=== PATIENT | male | born 1935 | race American Indian/Alaskan Native ===

== ENCOUNTER 2016-10-11 09:42 | Observation (INO) | payer MEDICARE ==
[2016-10-11] MEDS ORDERED: MILK OF MAGNESIA PO PRN (10:16)
[2016-10-11] MEDS ORDERED: TYLENOL PO PRN ×2 (10:16→13:39)
[2016-10-11] MEDS ORDERED: ZOFRAN IV PRN (10:16)
[2016-10-11] MEDS ORDERED: NACL 0.45% 1000 ML 1,000 ML IV ONE (10:33)
[2016-10-11] MEDS ORDERED: NACL 0.9% 1 ML, VANCOMYCIN VIAL 1,000 MG IR ONE (10:35)
[2016-10-11] MEDS ORDERED: ANCEF/STERILE WATER 2 GM/20 ML 2 GM/20 ML SYRINGE IV NR (11:00)
[2016-10-11] MEDS ORDERED: DULCOLAX PR PRN (11:00)
[2016-10-11] MEDS ORDERED: NACL 0.45% 1000 ML 1,000 ML IV SCH (11:00)
[2016-10-11 11:06] LABS: INR 1.08 (0.87-1.13)
[2016-10-11 11:07] LABS: Partial Thromboplastin Time 31.3 Sec. (24.2-36.6)
[2016-10-11 11:09] LABS: Basophils % (Auto) 0.7 % (0.0-1.8); Eosinophils % (Auto) 6.8 % (0.0-4.3); Hematocrit 31.6 % (35.5-45.6); Hemoglobin 9.9 gm/dl (11.8-15.2); Mean Corpuscular HGB Conc 31 % (32-34); Mean Corpuscular Hemoglobin 26 pg (28-32); Mean Corpuscular Volume 83 fl (84-94); Platelet Count 144 K/mm3 (140-440); Red Cell Distribution Width 15.3 % (13.2-15.2); White Blood Count 3.1 K/mm3 (4.5-11.0)
[2016-10-11 11:12] LABS: BUN/Creatinine Ratio 12.27; Calcium 9.7 mg/dL (8.4-10.2); Chloride 108.5 mmol/L (98-107); Potassium 3.8 mmol/L (3.6-5.0)
--- NOTE | 2016-10-11 11:43 | Admit Criteria Form ---
Admission Criteria Documentation: TELEMETRY CARE Telemetry Admission Guidelines (Place 'X' for any and all applicable criteria): Admission to telemetry [A] may be indicated for ANY ONE of the following(1)(2)(3 )(4)(5): [ ]I. Cardiac disease, including ANY ONE of the following (9)(10)(11)(12)(13 ): [ ]a) Postacute ND [ ]b) Low-risk patients with ST-segment elevation ND who have undergone successful percutaneous coronary intervention [ ]c) Unstable angina [ ]d) Suspected ND (until it is ruled out) [ ]e) Post cardiac surgery (first 48 to 72 hours unless complications occur) [ ]f) Acute arrhythmias (including significant tachycardia or bradycardia) [B] [ ]g) Firing of an implantable cardioverter defibrillator [C] [ ]h) Suspected pacemaker or implantable cardioverter defibrillator malfunction (10) [ ]i) New administration or adjustment of an antiarrhythmic drug [D ] [ ]j) Child admitted for acute congestive heart failure [ ]j) Long QT syndrome [ ]k) Advanced heart block (eg, second-degree Mobitz type II, third- degree heart block) [ ]l) Acute myocarditis or pericarditis [X]m) Short-term (ambulatory or inpatient) monitoring after a cardiac procedure as indicated by ANY ONE of the following [E]: [ ]i) Electrophysiologic studies [ ]ii) Percutaneous coronary intervention with stent placement [X]iii) Pacemaker placement with cardiac conduction defect [ ]iv) Implantable cardiac defibrillator placement [ ]II. Drug overdose or poisoning with substance that causes arrhythmias or QT prolongation (eg, phenothiazines, sympathomimetic agents, cyclic antidepressants, digitalis, antiarrhythmic drugs)(15) [ ]III. Short-term (ambulatory or inpatient) monitoring after therapeutic or diagnostic procedure requiring conscious sedation or anesthesia (eg, endoscopy, elective cardioversion) [ ]IV. Acute cerebrovascular even[F](18) [ ]V. Massive blood transfusion (eg, at least 10 units of packed red blood cells in 24 hours) [ ]. Variceal bleeding after endoscopy, sclerotherapy, or IV vasopressin [ ]VII. Uncorrected electrolyte abnormalities associated with an increased risk of dangerous arrhythmia [G]; examples include [ ]a) Hyperkalemia with attributable ECG changes [ ]b) Potassium greater than 6.5 mmol/L (mEq/L) in a patient without history of chronic renal disease [ ]c) Prolonged QT attributed to hypokalemia, hypomagnesemia, or hypocalcemia [ ]VIII.Unexplained syncope or other neurologic event suspected of being due to arrhythmia due to a finding that increases risk; examples include(19)(20)(21): [ ]a) High-risk ECG findings (eg, bifascicular block, bradycardia, abnormal QT interval, ventricular pre- excitation) [ ]b) History of previous syncope due to arrhythmia [ ]c) Abnormal ventricular function (eg, reduced ejection fraction ) [ ]d) Exertional or supine syncope [ ]e) Concerning syncope characteristics (eg, sudden loss of consciousness without prodrome) [ ]f) Family history of sudden [ ]g) Use of arrhythmogenic medication [ ]h) Suspected cardiac ischemia [ ]i) Known channelopathy (eg, long QT syndrome, Brugada syndrome, or catecholaminergic paroxysmal ventricular tachycardia) [ ]j) Known structural heart disease (eg, hypertrophic cardiomyopathy , severe valvular disease) [ ]k) Palpitations preceding syncope The original [employer] content created by [employer] has been revised. The portions of the content which have been revised are identified through the use of italic text or in bold, and [facility] has neither reviewed nor approved the modified material. All other unmodified content is copyright [employer]. Please see references footnoted in the original [employer] edition 2016 Admission Criteria Met: Yes
[2016-10-11] MEDS ORDERED: NACL 0.9% 500 ML IR ONE (11:48)
[2016-10-11] MEDS ORDERED: ANCEF/STERILE WATER 2 GM/20 ML 2 GM/20 ML SYRINGE IV ONE (11:49)
[2016-10-11] MEDS ORDERED: MARCAINE 0.5% 60 ML INFILTRATI ONE (11:49)
[2016-10-11] MEDS ORDERED: XYLOCAINE 1% 20 mL ONE ×2 (11:49→12:05)
[2016-10-11] MEDS: VERSED ONE ×2 (12:10→13:00)
[2016-10-11] MEDS: SUBLIMAZE ONE ×3 (12:10→13:06)
[2016-10-11] MEDS ORDERED: BENADRYL ONE (12:24)
[2016-10-11] MEDS ORDERED: VANCOMYCIN VIAL 1,000 MG in NACL 0.9% 1,000 ML IRRIGATION ONE (12:30)
--- NOTE | 2016-10-11 14:34 | Short Stay Summary ---
Short Stay Documentation Date of service: 10/11/16 - History H&P: obtained from office - Allergies and Medications Current Medications: Allergies No Known Allergies Allergy (Unverified 07/06/16 16:12) Home Medications Medication Instructions Recorded Confirmed Last Taken Type Amlodipine Besylate [Amlodipine 10 mg PO DAILY 10/11/16 10/11/16 10/10/16 History Besylate] 10mg Aspirin EC [Aspirin Enteric Coated 81 mg PO DAILY 10/11/16 10/11/16 10/09/16 History TAB] 81mg Clopidogrel Bisulfate [Clopidogrel] 75 mg PO DAILY 10/11/16 10/11/16 10/10/16 History 75mg Famotidine [Famotidine] 20 mg PO BID 10/11/16 10/11/16 10/10/16 History 20mg Lovastatin [Lovastatin] 40 mg PO HS 10/11/16 10/11/16 10/10/16 History 40mg Metoprolol Tartrate [Metoprolol 50 mg PO BID 10/11/16 10/11/16 10/10/16 History Tartrate] 50mg Vit D3/Folic Acid/B2/B6/B12 1 each PO DAILY 10/11/16 10/11/16 10/10/16 History [Folgard Tablet] 1 ntab levETIRAcetam [Levetiracetam] 750 mg PO BID 10/11/16 10/11/16 10/10/16 History 750mg Active Medications Acetaminophen (Tylenol) 650 mg PO Q4H PRN PRN Reason: Pain MILD(1-3)/Fever >100.5/ZIMMERMAN Amlodipine Besylate (Norvasc) 10 mg PO DAILY DAVID Aspirin (Halfprin Ec) 81 mg PO DAILY DAVID Bisacodyl (Dulcolax) 10 mg NE QDAY PRN PRN Reason: Constipation unrelieved by MOM Clopidogrel Bisulfate (Plavix) 75 mg PO DAILY DAVID Famotidine (Pepcid) 20 mg PO BID DAVID Sodium Chloride (Nacl 0.45% 1000 Ml) 1,000 mls @ 50 mls/hr IV DIRECT DAVID Cefazolin Sodium (Ancef/Sterile Water 2 Gm/20 Ml) 2 gm in 20 mls @ 0 mls/hr IV PREOP NR PRN Reason: Protocol Stop: 10/11/16 23:29 Cefazolin Sodium (Ancef/Ns 1 Gm/50 Ml) 1 gm in 50 mls @ 0 mls/hr IV Q8H DAVID Stop: 10/12/16 04:01 Sodium Chloride (Nacl 0.9% 1000 Ml) 1,000 mls @ 80 mls/hr IV DIRECT DAVID Levetiracetam (Keppra) 750 mg PO BID DAVID Magnesium Hydroxide (Milk Of Magnesia) 30 ml PO Q4H PRN PRN Reason: Constipation Metoprolol Tartrate (Lopressor) 50 mg PO BID DAVID Ondansetron HCl (Zofran) 4 mg IV Q8H PRN PRN Reason: N/V unrelieved by Reglan Simvastatin (Zocor) 20 mg PO QHS DAVID - Brief post op/procedure progress note Date of procedure: 10/11/16 Pre-op diagnosis: symptomatic bradycardia Procedure: permanent pacemaker implantation - Hospital course Hospital course: The patient is an 81 year old male who is followed by Dr. Brand in the office with a history of CAD s/p CABG, hypertension, hyperlipidemia who wore a Holter monitor following a syncopal episode. Monitor revealed intermittent episodes of AV block with heart rates down into the 30s. He presented on 10/11/16 and underwent permanent pacemaker implantation by Dr. Dejesus. He was observed on telemetry overnight and pacemaker interrogation this morning revealed normal function. He will be discharged home today in stable condition. Follow up appointment for an incision check with Dr. Dejesus in the [place] office on at 11:00am. - Disposition Condition at discharge: Stable Disposition: DISCHARGED TO HOME OR SELFCARE - Discharge Diagnoses (1) Pacemaker Status: Acute (2) Symptomatic bradycardia Status: Resolved (3) CAD (coronary artery disease) Status: Chronic Qualifiers: Coronary Disease-Associated Artery/Lesion type: C [place] vs. transplanted heart: N Associated angina: A (4) Hx of CABG Status: Chronic (5) HTN (hypertension) Status: Chronic Qualifiers: Hypertension type: H (6) Hyperlipidemia Status: Chronic Qualifiers: Hyperlipidemia type: H Short Stay Discharge Plan Activity: advance as tolerated Weight Bearing Status: Weight Bear as Tolerated Diet: low fat, low cholesterol Wound: keep clean and dry Follow up with: ROSALINE FAULKNER MD [Primary Care Provider] - 7 Days TRACE DEJESUS MD [Staff Physician] - 10/19/16 11:00 am
--- NOTE | 2016-10-11 15:10 | XRay Report ---
PORTABLE CHEST INDICATION: Pacemaker postop. COMPARISON: 07/26/2016 FINDINGS: Portable, frontal chest radiograph demonstrate stable cardiomediastinal silhouette/possible cardiomegaly, aortic knob calcifications, right paratracheal haziness/prominent soft tissues and post CABG changes. Left sided pacemaker with dual-chamber leads are new. Clear lungs without pleural effusions, CHF or pneumothorax. EKG leads. Stable bones. CONCLUSION: Interval uncomplicated left-sided pacemaker placement with few other stable findings, as above. Thank you for the opportunity to participate in this patient's care.
[2016-10-11] MEDS: NACL 0.9% 1000 ML 1,000 ML IV SCH (15:17)
[2016-10-11] MEDS ORDERED: ZOCOR PO SCH (22:00)
[2016-10-11] MEDS: ANCEF/NS 1 GM/50 ML 1 GM/50 ML BAG IV SCH (22:45)
[2016-10-11] MEDS: KEPPRA PO SCH (22:46)
[2016-10-11] MEDS: LOPRESSOR PO SCH (22:46)
[2016-10-11] MEDS: PEPCID PO SCH (22:47)
[2016-10-12] MEDS: ANCEF/NS 1 GM/50 ML 1 GM/50 ML BAG IV SCH (04:30)
[2016-10-12] MEDS: NACL 0.9% 1000 ML 1,000 ML IV SCH (05:43)
[2016-10-12 07:35] VITALS: BP 180/81
[2016-10-12] MEDS ORDERED: HALFPRIN EC PO SCH (10:00)
[2016-10-12] MEDS ORDERED: PLAVIX PO SCH (10:00)
[2016-10-12] MEDS ORDERED: NORVASC PO SCH (10:00)
[2016-10-12] MEDS: PEPCID PO SCH (10:55)
[2016-10-12] MEDS: KEPPRA PO SCH (10:55)
[2016-10-12] MEDS: LOPRESSOR PO SCH (10:57)
[2016-10-13] MEDS ORDERED: PEPCID PO SCH (10:00)
== END 2016-10-12 12:30 | disposition home or self-care (01) ==
LOC: OPU 09:42 → 4A 10:16
PROVIDERS: ADMIT Internal Medicine Cardiovascular Disease; ATTEND Internal Medicine Cardiovascular Disease
DX: I25.10 Atherosclerotic heart disease of native coronary artery without angina pectoris (principal); N19 Unspecified kidney failure; E78.5 Hyperlipidemia, unspecified; E78.00 Pure hypercholesterolemia, unspecified; R00.1 Bradycardia, unspecified; I10 Essential (primary) hypertension; Z95.1 Presence of aortocoronary bypass graft; Z95.0 Presence of cardiac pacemaker
CPT/HCPCS: 33208; 36415; 71010; 80048; 85025; 85610; 85730; 93005; 93010; 96365; 96366; C1769; C1779; C1785; C1892; G0378; J0690; J1200; J2250; J3010; J3370; J7030

== ENCOUNTER 2017-09-05 10:16 | Inpatient (IN) | payer MEDICARE ==
[2017-09-05] MEDS ORDERED: NACL 0.9% 1000 ML 1,000 ML IV ONE ×2 (10:46→12:00)
--- NOTE | 2017-09-05 11:02 | Emergency Department Report ---
ED Syncope HPI - General Chief Complaint: Syncope Stated Complaint: SYNCOPE Time Seen by Provider: 09/05/17 10:52 Source: family, EMS - History of Present Illness Initial Comments: Patient is a 82 years old male, history of hypertension, pacemaker, seizure. Presented via EMS after his called and told that she found him unresponsive on the floor after he went to the bathroom, unknown amount of time. Patient is back to his baseline now. Patient denied any chest pain, shortness of breath, cough. Patient denied any headache nausea or vomiting or fever. Timing/Prior Episodes: single episode today Precipitating Factors: Positive: none Loss of Consciousness: prolonged (minutes) Current Symptoms: back to normal - Related Data Allergies/Adverse Reactions: Allergies No Known Allergies Allergy (Unverified 07/06/16 16:12) Home Medications: Ambulatory Orders Amlodipine Besylate 10 mg PO DAILY 10/11/16 Aspirin EC [Aspirin Enteric Coated TAB] 81 mg PO DAILY 10/11/16 Clopidogrel Bisulfate [Clopidogrel] 75 mg PO DAILY 10/11/16 Famotidine 20 mg PO BID 10/11/16 Lovastatin 40 mg PO HS 10/11/16 Metoprolol Tartrate 50 mg PO BID 10/11/16 Vit D3/Folic Acid/B2/B6/B12 [Folgard Tablet] 1 each PO DAILY 10/11/16 levETIRAcetam [Levetiracetam] 750 mg PO BID 10/11/16 Calcitriol [Rocaltrol] 0.25 mcg PO DAILY 09/05/17 Donepezil [Aricept] 10 mg PO QDAY 09/05/17 Spironolactone [Aldactone] 25 mg PO BID 09/05/17 ED Review of Systems ROS: Stated complaint: SYNCOPE Other details as noted in HPI Comment: All other systems reviewed and negative Constitutional: denies: chills, fever ENT: denies: ear pain, throat pain Respiratory: denies: cough, orthopnea, shortness of breath, SOB with exertion Cardiovascular: denies: chest pain, palpitations, dyspnea on exertion Gastrointestinal: denies: abdominal pain, nausea, vomiting, diarrhea, constipation, hematemesis, melena, hematochezia Genitourinary: denies: urgency Musculoskeletal: denies: back pain, joint swelling Skin: denies: rash, lesions, change in color Neurological: denies: headache, weakness ED Past Medical Hx - Past Medical History Hx Hypertension: Yes Hx Heart Attack/AMI: No Hx Congestive Heart Failure: No Hx Seizures: Yes (as a child under 1 yr old) Hx HIV: No - Surgical History Hx Open Heart Surgery: Yes (CABG) Hx Pacemaker: Yes (new implant 10/11/16) - Social History Smoking Status: Never Smoker Substance Use Type: None - Medications Home Medications: Home Medications Medication Instructions Recorded Confirmed Last Taken Type Amlodipine Besylate 10 mg PO DAILY 10/11/16 09/05/17 09/04/17 History Aspirin EC [Aspirin Enteric Coated 81 mg PO DAILY 10/11/16 09/05/17 09/04/17 History TAB] Clopidogrel Bisulfate [Clopidogrel] 75 mg PO DAILY 10/11/16 09/05/17 09/04/17 History Famotidine 20 mg PO BID 10/11/16 09/05/17 09/04/17 History Lovastatin 40 mg PO HS 10/11/16 09/05/17 09/04/17 History Metoprolol Tartrate 50 mg PO BID 10/11/16 09/05/17 09/04/17 History Vit D3/Folic Acid/B2/B6/B12 1 each PO DAILY 10/11/16 09/05/17 09/04/17 History [Folgard Tablet] levETIRAcetam [Levetiracetam] 750 mg PO BID 10/11/16 09/05/17 09/04/17 History Calcitriol [Rocaltrol] 0.25 mcg PO DAILY 09/05/17 09/05/17 09/04/17 History Donepezil [Aricept] 10 mg PO QDAY 09/05/17 09/05/17 09/04/17 History Spironolactone [Aldactone] 25 mg PO BID 09/05/17 09/05/17 09/04/17 History ED Physical Exam - General Limitations: No Limitations General appearance: alert, in no apparent distress - Head Head exam: Present: atraumatic, normocephalic, normal inspection - Eye Eye exam: Present: normal appearance, PERRL, EOMI - ENT ENT exam: Present: normal exam, normal orophraynx, mucous membranes moist, normal external ear exam. Absent: TM's normal bilaterally - Neck Neck exam: Present: normal inspection, full ROM. Absent: tenderness, meningismus, lymphadenopathy, thyromegaly - Respiratory Respiratory exam: Present: normal lung sounds bilaterally. Absent: respiratory distress, wheezes, rales, rhonchi, stridor, accessory muscle use, decreased breath sounds, prolonged expiratory - Cardiovascular Cardiovascular Exam: Present: bradycardia - GI/Abdominal GI/Abdominal exam: Present: soft, normal bowel sounds. Absent: distended, tenderness, guarding, rebound, rigid, organomegaly, mass, bruit, pulsatile mass , hernia - Extremities Exam Extremities exam: Present: normal inspection, full ROM, normal capillary refill. Absent: pedal edema, calf tenderness - Back Exam Back exam: Present: normal inspection, full ROM. Absent: tenderness, CVA tenderness (R), CVA tenderness (L), muscle spasm, paraspinal tenderness, vertebral tenderness - Neurological Exam Neurological exam: Present: alert, oriented X3, CN II-XII intact, normal gait. Absent: abnormal gait, motor sensory deficit - Skin Skin exam: Present: warm, intact, normal color ED Course Vital Signs 09/05/17 09/05/17 09/05/17 10:42 11:46 12:46 Temperature 98.1 F Pulse Rate 62 60 Respiratory 18 16 16 Rate Blood Pressure 148/65 Blood Pressure 162/73 [Right] O2 Sat by Pulse 97 97 99 Oximetry 09/05/17 14:00 Temperature Pulse Rate 62 Respiratory 15 Rate Blood Pressure Blood Pressure 146/63 [Right] O2 Sat by Pulse 95 Oximetry ED Medical Decision Making - Lab Data Result diagrams: 09/05/17 10:51 09/05/17 10:51 - EKG Data -: EKG Interpreted by Nj - EKG Data Interpretation: no acute changes - Radiology Data Radiology results: report reviewed Referring Physician: PHUONG BAREU Patient Name: KUN YING Date of : 1935 Sex: Male Report Date: 2017-09-05 Report Status: Finalized Findings [facility] [address] [place] [address] Cat Scan Report Signed Patient: KUN YING MR#: [id number] : 1935 Acct:[id number] Age/Sex: 82 / M ADM Date: 09/05/17 Loc: ED Attending Dr: Ordering Physician: PHUONG ABREU Date of Service: 09/05/17 Procedure(s): CT head/brain wo con Accession Number(s): [id number] cc: PHUONG ABREU CT HEAD WITHOUT CONTRAST: HISTORY: Syncope. TECHNIQUE: Sequential CT images without contrast. FINDINGS: Compared to 07/26/16. The small bilateral subdural collections have resolved since the previous exam. No new extra-axial fluid collection. Mild diffuse cortical volume loss and mild nonspecific chronic white matter changes are stable and appear appropriate for this persons age. There is no evidence for hemorrhage or large area of acute ischemia. 12 mm masslike lesion in the left side of the sella is unchanged. This probably represents a small meningioma although an aneurysm or pituitary macroadenoma could be considered. Ventricular size remains within normal limits. The posterior fossa is unremarkable. The visualized sinuses and mastoid air cells are well-aerated. IMPRESSION: Evidence of atrophy and microangiopathic ischemic disease. No acute intracranial process noted. No change in the 12 mm sellar mass, see above. Bilateral subdural collections have resolved since the previous exam. Transcribed By: TTR Dictated By: KRAIG MUNSON JR, MD Electronically Authenticated By: KRAIG MUNSON JR, MD Signed Date/Time: 09/05/17 1151 DD/ 1148 TD/TT: 09/05/17 1151 - Medical Decision Making Discussed with Dr. SKELTON, I presented the patient to him, he agreed to admit the patient to his service. Critical care attestation.: If time is entered above; I have spent that time in minutes in the direct care of this critically ill patient, excluding procedure time. ED Disposition Clinical Impression: Syncope and collapse, Acute on chronic renal failure Disposition: OP ADMIT IP TO THIS HOSP Is pt being admited?: Yes Condition: Stable
[2017-09-05 11:15] LABS: Basophils % (Auto) 0.4 % (0.0-1.8); Eosinophils # (Auto) 0.5 K/mm3 (0.0-0.4); Eosinophils % (Auto) 11.3 % (0.0-4.3); Hematocrit 34.8 % (35.5-45.6); Hemoglobin 10.8 gm/dl (11.8-15.2); Lymphocytes # (Auto) 1.9 K/mm3 (1.2-5.4); Lymphocytes % (Auto) 40.1 % (13.4-35.0); Mean Corpuscular HGB Conc 31 % (32-34); Mean Corpuscular Hemoglobin 27 pg (28-32); Mean Corpuscular Volume 86 fl (84-94); Monocytes # (Auto) 0.5 K/mm3 (0.0-0.8); Platelet Count 128 K/mm3 (140-440); Red Blood Count 4.07 M/mm3 (3.65-5.03); Red Cell Distribution Width 15.9 % (13.2-15.2)
--- NOTE | 2017-09-05 11:22 | XRay Report ---
AP CHEST: HISTORY: Syncope No change is appreciated since 10/11/16. Previous CABG changes and pacemaker device are unchanged. Heart size is stable at the upper limits of normal. The aorta is ectatic with calcifications but is well defined. The lungs are clear. The bony structures are grossly intact. IMPRESSION: No acute cardiopulmonary process.
[2017-09-05 11:27] LABS: INR 1.06 (0.87-1.13)
[2017-09-05 11:28] LABS: Partial Thromboplastin Time 28.6 Sec. (24.2-36.6)
[2017-09-05 11:32] LABS: Creatine Kinase MB 4.4 ng/mL (0.0-4.0)
[2017-09-05 11:33] LABS: Albumin 3.7 g/dL (3.9-5); Calcium 9.8 mg/dL (8.4-10.2); Magnesium 2.2 mg/dL (1.7-2.3)
[2017-09-05 11:45] LABS: Chol/HDL Ratio 2.13 %
--- NOTE | 2017-09-05 11:56 | Cat Scan Report ---
CT HEAD WITHOUT CONTRAST: HISTORY: Syncope. TECHNIQUE: Sequential CT images without contrast. FINDINGS: Compared to 07/26/16. The small bilateral subdural collections have resolved since the previous exam. No new extra-axial fluid collection. Mild diffuse cortical volume loss and mild nonspecific chronic white matter changes are stable and appear appropriate for this persons age. There is no evidence for hemorrhage or large area of acute ischemia. 12 mm masslike lesion in the left side of the sella is unchanged. This probably represents a small meningioma although an aneurysm or pituitary macroadenoma could be considered. Ventricular size remains within normal limits. The posterior fossa is unremarkable. The visualized sinuses and mastoid air cells are well-aerated. IMPRESSION: Evidence of atrophy and microangiopathic ischemic disease. No acute intracranial process noted. No change in the 12 mm sellar mass, see above. Bilateral subdural collections have resolved since the previous exam.
--- NOTE | 2017-09-05 15:21 | History and Physical Report ---
History of Present Illness Date of examination: 09/05/17 Date of admission: 09/05/17 12:42 Chief complaint: Cc Passed out History of present illness: - History of Present Illness Initial Comments: Patient is a 82 years old male, history of hypertension, pacemaker, seizure. Presented via EMS after his called and told that she found him unresponsive on the floor after he went to the bathroom, unknown amount of time. Patient is back to his baseline now. Patient denied any chest pain, shortness of breath, cough. Patient denied any headache nausea or vomiting or fever.No exacerbating or relieving factor Past Medical History Hx Hypertension: Yes Hx Seizures: Yes (as a child under 1 yr old) CAD HLD Dementia-mild Surgical History Hx Open Heart Surgery: Yes (CABG) Hx Pacemaker: Yes (new implant 10/11/16) Social History Smoking Status: Never Smoker Substance Use Type: None -Medications Home Medications: Home Medications Medication Instructions Recorded Confirmed Last Taken Type Amlodipine Besylate 10 mg PO DAILY 10/11/16 09/05/17 09/04/17 History Aspirin EC [Aspirin Enteric Coated 81 mg PO DAILY 10/11/16 09/05/17 09/04/17 History TAB] Clopidogrel Bisulfate [Clopidogrel] 75 mg PO DAILY 10/11/16 09/05/17 09/04/17 History Famotidine 20 mg PO BID 10/11/16 09/05/17 09/04/17 History Lovastatin 40 mg PO HS 10/11/16 09/05/17 09/04/17 History Metoprolol Tartrate 50 mg PO BID 10/11/16 09/05/17 09/04/17 History Vit D3/Folic Acid/B2/B6/B12 1 each PO DAILY 10/11/16 09/05/17 09/04/17 History [Folgard Tablet] levETIRAcetam [Levetiracetam] 750 mg PO BID 10/11/16 09/05/17 09/04/17 History Calcitriol [Rocaltrol] 0.25 mcg PO DAILY 09/05/17 09/05/17 09/04/17 History Donepezil [Aricept] 10 mg PO QDAY 09/05/17 09/05/17 09/04/17 History Spironolactone [Aldactone] 25 mg PO BID 09/05/17 09/05/17 09/04/17 History Review of Systems ROS: Stated complaint: SYNCOPE Other details as noted in HPI Comment: All other systems reviewed and negative Constitutional: denies: chills, fever ENT: denies: ear pain, throat pain Respiratory: denies: cough, orthopnea, shortness of breath, SOB with exertion Cardiovascular: denies: chest pain, palpitations, dyspnea on exertion Gastrointestinal: denies: abdominal pain, nausea, vomiting, diarrhea, constipation, hematemesis, melena, hematochezia Genitourinary: denies: urgency Musculoskeletal: denies: back pain, joint swelling Skin: denies: rash, lesions, change in color Neurological: denies: headache, weakness Medications and Allergies Allergies Allergy/AdvReac Type Severity Reaction Status Date / Time No Known Allergies Allergy Unverified 07/06/16 16:12 Home Medications Medication Instructions Recorded Confirmed Last Taken Type Amlodipine Besylate 10 mg PO DAILY 10/11/16 09/05/17 09/04/17 History Aspirin EC [Aspirin Enteric Coated 81 mg PO DAILY 10/11/16 09/05/17 09/04/17 History TAB] Clopidogrel Bisulfate [Clopidogrel] 75 mg PO DAILY 10/11/16 09/05/17 09/04/17 History Famotidine 20 mg PO BID 10/11/16 09/05/17 09/04/17 History Lovastatin 40 mg PO HS 10/11/16 09/05/17 09/04/17 History Metoprolol Tartrate 50 mg PO BID 10/11/16 09/05/17 09/04/17 History Vit D3/Folic Acid/B2/B6/B12 1 each PO DAILY 10/11/16 09/05/17 09/04/17 History [Folgard Tablet] levETIRAcetam [Levetiracetam] 750 mg PO BID 10/11/16 09/05/17 09/04/17 History Calcitriol [Rocaltrol] 0.25 mcg PO DAILY 09/05/17 09/05/17 09/04/17 History Donepezil [Aricept] 10 mg PO QDAY 09/05/17 09/05/17 09/04/17 History Spironolactone [Aldactone] 25 mg PO BID 09/05/17 09/05/17 09/04/17 History Exam - Constitutional Vitals: Temp Pulse Resp BP Pulse Ox 98.1 F 62 15 146/63 95 09/05/17 10:42 09/05/17 14:00 09/05/17 14:00 09/05/17 14:00 09/05/17 14:00 General appearance: Present: no acute distress, well-nourished - EENT Eyes: Present: PERRL ENT: hearing intact, clear oral mucosa - Neck Neck: Present: supple, normal ROM - Respiratory Respiratory effort: normal Respiratory: bilateral: CTA - Cardiovascular Heart rate: 80 Rhythm: regular Heart Sounds: Present: S1 & S2. Absent: rub, click - Extremities Extremities: no ischemia, pulses intact, pulses symmetrical, No edema Peripheral Pulses: within normal limits - Abdominal General gastrointestinal: Present: soft, non-tender, non-distended, normal bowel sounds Male genitourinary: Present: normal - Rectal Rectal Exam: deferred - Integumentary Integumentary: Present: clear, warm, dry - Musculoskeletal Musculoskeletal: gait normal, strength equal bilaterally - Psychiatric Psychiatric: appropriate mood/affect, intact judgment & insight - Neurologic Neurologic: CNII-XII intact, moves all extremities - Allied Health Allied health notes reviewed: nursing Results - Labs CBC & Chem 7: 09/06/17 06:16 09/06/17 06:16 Labs: Laboratory Last Values WBC 4.7 K/mm3 (4.5-11.0) 09/05/17 10:51 RBC 4.07 M/mm3 (3.65-5.03) 09/05/17 10:51 Hgb 10.8 gm/dl (11.8-15.2) L 09/05/17 10:51 Hct 34.8 % (35.5-45.6) L 09/05/17 10:51 MCV 86 fl (84-94) 09/05/17 10:51 MCH 27 pg (28-32) L 09/05/17 10:51 MCHC 31 % (32-34) L 09/05/17 10:51 RDW 15.9 % (13.2-15.2) H 09/05/17 10:51 Plt Count 128 K/mm3 (140-440) L 09/05/17 10:51 Lymph % (Auto) 40.1 % (13.4-35.0) H 09/05/17 10:51 [place] % (Auto) 11.0 % (0.0-7.3) H 09/05/17 10:51 Eos % (Auto) 11.3 % (0.0-4.3) H 09/05/17 10:51 Baso % (Auto) 0.4 % (0.0-1.8) 09/05/17 10:51 Lymph # 1.9 K/mm3 (1.2-5.4) 09/05/17 10:51 [place] # 0.5 K/mm3 (0.0-0.8) 09/05/17 10:51 Eos # 0.5 K/mm3 (0.0-0.4) H 09/05/17 10:51 Baso # 0.0 K/mm3 (0.0-0.1) 09/05/17 10:51 Seg Neutrophils % 37.2 % (40.0-70.0) L 09/05/17 10:51 Seg Neutrophils # 1.7 K/mm3 (1.8-7.7) L 09/05/17 10:51 PT 14.3 Sec. (12.2-14.9) 09/05/17 10:51 INR 1.06 (0.87-1.13) 09/05/17 10:51 APTT 28.6 Sec. (24.2-36.6) 09/05/17 10:51 Sodium 143 mmol/L (137-145) 09/05/17 10:51 Potassium 4.7 mmol/L (3.6-5.0) 09/05/17 10:51 Chloride 110.9 mmol/L (98-107) H 09/05/17 10:51 Carbon Dioxide 14 mmol/L (22-30) L 09/05/17 10:51 Anion Gap 23 mmol/L 09/05/17 10:51 BUN 62 mg/dL (9-20) H 09/05/17 10:51 Creatinine 3.2 mg/dL (0.8-1.5) H 09/05/17 10:51 Estimated GFR 23 ml/min 09/05/17 10:51 BUN/Creatinine Ratio 19 % 09/05/17 10:51 Glucose 113 mg/dL (75-100) H 09/05/17 10:51 Calcium 9.8 mg/dL (8.4-10.2) 09/05/17 10:51 Magnesium 2.20 mg/dL (1.7-2.3) 09/05/17 10:51 Total Bilirubin 0.30 mg/dL (0.1-1.2) 09/05/17 10:51 AST 22 units/L (5-40) 09/05/17 10:51 ALT 19 units/L (7-56) 09/05/17 10:51 Alkaline Phosphatase 51 units/L (35-129) 09/05/17 10:51 Total Creatine Kinase 322 units/L (55-170) H 09/05/17 10:51 CK-MB (CK-2) 4.4 ng/mL (0.0-4.0) H 09/05/17 10:51 CK-MB (CK-2) Rel Index 1.3 (0-4) 09/05/17 10:51 Troponin T 0.056 ng/mL (0.00-0.029) H 09/05/17 10:51 Total Protein 7.2 g/dL (6.3-8.2) 09/05/17 10:51 Albumin 3.7 g/dL (3.9-5) L 09/05/17 10:51 Albumin/Globulin Ratio 1.1 % 09/05/17 10:51 Triglycerides 72 mg/dL (2-149) 09/05/17 10:51 Cholesterol 141 mg/dL (50-199) 09/05/17 10:51 LDL Cholesterol Direct 61 mg/dL (50-130) 09/05/17 10:51 HDL Cholesterol 66 mg/dL (40-59) H 09/05/17 10:51 Cholesterol/HDL Ratio 2.13 % 09/05/17 10:51 Short CBC 09/05/17 09/06/17 Range/Units 10:51 06:16 WBC 4.7 3.5 L (4.5-11.0) K/mm3 Hgb 10.8 L 11.2 L (11.8-15.2) gm/dl Hct 34.8 L 34.4 L (35.5-45.6) % Plt Count 128 L 114 L (140-440) K/mm3 BMP 09/05/17 09/06/17 10:51 06:16 Sodium 143 143 Potassium 4.7 5.5 H Chloride 110.9 H 112.8 H Carbon Dioxide 14 L 17 L BUN 62 H 48 H Creatinine 3.2 H 2.8 H Glucose 113 H 93 Calcium 9.8 9.6 Cardiac Enzymes 09/05/17 09/05/17 09/05/17 Range/Units 10:51 15:59 20:42 Total Creatine Kinase 322 H 333 H 390 H (55-170) units/L CK-MB (CK-2) 4.4 H 5.4 H 5.4 H (0.0-4.0) ng/mL Troponin T 0.056 H 0.055 H 0.056 H (0.00-0.029) ng/mL 09/06/17 Range/Units 06:16 Total Creatine Kinase 478 H (55-170) units/L CK-MB (CK-2) 5.6 H (0.0-4.0) ng/mL Troponin T 0.062 H (0.00-0.029) ng/mL Liver Function 09/05/17 09/06/17 Range/Units 10:51 06:16 Total Bilirubin 0.30 0.30 (0.1-1.2) mg/dL AST 22 19 (5-40) units/L ALT 19 11 (7-56) units/L Alkaline Phosphatase 51 51 (35-129) units/L Albumin 3.7 L 3.7 L (3.9-5) g/dL Urine 09/05/17 Range/Units Unknown Urine Color Straw (Yellow) Urine pH 5.0 (5.0-7.0) Ur Specific [place] 1.009 (1.003-1.030) Urine Protein 30 mg/dl (Negative) mg/dL Urine Glucose (UA) Neg (Negative) mg/dL - Imaging and Cardiology EKG: report reviewed Chest x-ray: report reviewed Assessment and Plan Advance Directives: Yes (FC) VTE prophylaxis?: Chemical Plan of care discussed with patient/family: Yes - Patient Problems (1) Syncope and collapse Current Visit: Yes Status: Acute Plan to address problem: Syncope w/u in the form of Lexiscan ECHO and CDS (2) Hyperkalemia Current Visit: Yes Status: Acute Plan to address problem: IV calcium gluconate given.Spironolactone stopped Check K level (3) CAD (coronary artery disease) Current Visit: No Status: Chronic Qualifiers: Coronary Disease-Associated Artery/Lesion type: bypass graft [place] vs. transplanted heart: [place] heart Associated angina: without angina Qualified Code(s): I25.810 - Atherosclerosis of coronary artery bypass graft(s) without angina pectoris Plan to address problem: On Plavix (4) Hx of CABG Current Visit: No Status: Chronic Plan to address problem: On Plavix Check Lexiscan (5) Hyperlipidemia Current Visit: No Status: Chronic Qualifiers: Hyperlipidemia type: mixed hyperlipidemia Qualified Code(s): E78.2 - Mixed hyperlipidemia Plan to address problem: Cont Statins (6) HTN (hypertension) Current Visit: Yes Status: Chronic Qualifiers: Hypertension type: essential hypertension Qualified Code(s): I10 - Essential (primary) hypertension Plan to address problem: Cont Metoprolol and Amlodipine (7) Seizure disorder Current Visit: Yes Status: Chronic Plan to address problem: Cont Keppra (8) DVT prophylaxis Current Visit: Yes Status: Acute Plan to address problem: cont lovenox
[2017-09-05 15:22] LABS: Bilirubin,Urine NEG (Negative); Blood,Urine SM (Negative); Color,Urine Straw (Yellow); Mucus,Urine FEW /HPF; Nitrite,Urine NEG (Negative); Urobilinogen,Urine < 2.0 mg/dL (<2.0); WBC,Urine < 1.0 /HPF (0.0-6.0)
[2017-09-05] MEDS ORDERED: TYLENOL PO PRN (15:24)
[2017-09-05] MEDS ORDERED: PERCOCET 5/325 PO PRN (15:24)
[2017-09-05] MEDS ORDERED: ZOFRAN IV PRN (15:24)
[2017-09-05] MEDS ORDERED: MILK OF MAGNESIA PO PRN (15:24)
[2017-09-05] MEDS ORDERED: AMBIEN PO PRN (15:24)
[2017-09-05] MEDS ORDERED: REGLAN IV PRN (15:24)
[2017-09-05] MEDS ORDERED: MORPHINE IV PRN (15:24)
[2017-09-05] MEDS ORDERED: DULCOLAX PR PRN (15:24)
[2017-09-05] MEDS ORDERED: D5NS 1,000 ML IV SCH (16:00)
[2017-09-05 16:49] LABS: Creatine Kinase MB 5.4 ng/mL (0.0-4.0)
[2017-09-05] MEDS: KEPPRA PO SCH ×2 (18:00→21:21)
[2017-09-05] MEDS: ALDACTONE PO SCH ×2 (18:01→21:23)
[2017-09-05] MEDS: PLAVIX PO SCH (18:01)
[2017-09-05] MEDS: HALFPRIN EC PO SCH (18:02)
[2017-09-05] MEDS: LOPRESSOR PO SCH ×2 (18:03→21:28)
[2017-09-05] MEDS: ARICEPT PO SCH (18:03)
[2017-09-05] MEDS: ROCALTROL PO SCH (18:04)
[2017-09-05] MEDS: NORVASC PO SCH (18:04)
[2017-09-05] MEDS: PEPCID PO SCH ×3 (18:04→22:18)
[2017-09-05] MEDS: PRAVACHOL PO SCH (21:28)
[2017-09-05] MEDS ORDERED: NON-FORMULARY (Lovastatin [Lovastatin] 40 MG) PO SCH (22:00)
[2017-09-05 22:25] LABS: Creatine Kinase MB 5.4 ng/mL (0.0-4.0)
[2017-09-06 06:46] LABS: Basophils % (Auto) 0.8 % (0.0-1.8); Eosinophils # (Auto) 0.3 K/mm3 (0.0-0.4); Eosinophils % (Auto) 9.1 % (0.0-4.3); Hematocrit 34.4 % (35.5-45.6); Hemoglobin 11.2 gm/dl (11.8-15.2); Lymphocytes # (Auto) 0.8 K/mm3 (1.2-5.4); Lymphocytes % (Auto) 22.9 % (13.4-35.0); Mean Corpuscular HGB Conc 33 % (32-34); Mean Corpuscular Hemoglobin 28 pg (28-32); Mean Corpuscular Volume 85 fl (84-94); Monocytes # (Auto) 0.4 K/mm3 (0.0-0.8); Monocytes % (Auto) 12.5 % (0.0-7.3); Platelet Count 114 K/mm3 (140-440); Red Blood Count 4.05 M/mm3 (3.65-5.03); Red Cell Distribution Width 15.9 % (13.2-15.2)
[2017-09-06 07:02] LABS: Albumin 3.7 g/dL (3.9-5); Calcium 9.6 mg/dL (8.4-10.2)
[2017-09-06 07:07] LABS: Creatine Kinase MB 5.6 ng/mL (0.0-4.0)
[2017-09-06] MEDS ORDERED: LEXISCAN IV ONE ×2 (09:11)
[2017-09-06] MEDS ORDERED: CALCIUM GLUCONATE 2,000 MG in NACL 0.9% 100 ML IV ONE (10:00)
[2017-09-06] MEDS: KEPPRA PO SCH ×2 (10:47→22:10)
[2017-09-06] MEDS: NORVASC PO SCH (10:48)
[2017-09-06] MEDS: ARICEPT PO SCH (10:48)
[2017-09-06] MEDS: HALFPRIN EC PO SCH (10:48)
[2017-09-06] MEDS: PLAVIX PO SCH (10:48)
[2017-09-06] MEDS: ROCALTROL PO SCH (10:48)
[2017-09-06] MEDS: LOPRESSOR PO SCH ×2 (10:50→22:10)
[2017-09-06] MEDS: PEPCID PO SCH ×3 (10:50→22:10)
[2017-09-06] MEDS ORDERED: Fluarix Quad 2017-2018(36 MOS+ IM ONE (12:00)
[2017-09-06] MEDS ORDERED: PNEUMOVAX 23 IM ONE (12:00)
[2017-09-06] MEDS ORDERED: KIONEX PO ONE (13:00)
--- NOTE | 2017-09-06 20:58 | Progress Note ---
<ARIANA MIRELES - Last Filed: 09/06/17 21:30> Assessment and Plan Assessment and plan: Patient is a 82 years old male, history of hypertension, pacemaker, seizure. Presented via EMS after his called and told that she found him unresponsive on the floor after he went to the bathroom, unknown amount of time. Syncope and collapse VL carotid no stenosis CT of the head shows no acute process Echocardiogram pending Stress test pending Frequent neuro checks. Cardiology consult Supportive care Hyperkalemia Keyxlate given Closely monitor elcetrolytes Elevated Troponin CAD Patient has elevated troponin on pervious labs. Continue on plavix aspirin and statins Stress test pending Cardiology consult Hx of CABG Continue on plavix aspirin and statins HTN (hypertension) Continue on home antihypertensive medication IV hydralazine for SBP>160 Closely monitor BB Seizure disorder Continue Keppra Hyperlipidemia Started on antilipid agents Discussed about the importance of physical exercise, low fat diet, reducing intake of high fluid fat foods to improve Cardiovascular disease DVT prophylaxis Lovenox History Interval history: Patient denies chest pain or shortness of breath.Labs and nursing notes reviewed. Hospitalist Physical - Constitutional Vitals: Temp Pulse Resp BP Pulse Ox 97.9 F 70 20 151/83 97 09/06/17 10:56 09/06/17 10:56 09/06/17 10:56 09/06/17 10:56 09/06/17 20:32 General appearance: Present: no acute distress, well-nourished - EENT Eyes: Present: PERRL ENT: hearing intact - Neck Neck: Present: supple - Respiratory Respiratory effort: normal Respiratory: bilateral: CTA - Cardiovascular Rhythm: regular Heart Sounds: Present: S1 & S2 - Abdominal General gastrointestinal: soft, non-tender - Integumentary Integumentary: Present: clear, warm, dry - Psychiatric Psychiatric: appropriate mood/affect - Neurologic Neurologic: moves all extremities - Allied Health Allied health notes reviewed: nursing Results - Labs CBC & Chem 7: 09/06/17 06:16 09/06/17 06:16 Labs: Laboratory Last Values WBC 3.5 K/mm3 (4.5-11.0) L 09/06/17 06:16 RBC 4.05 M/mm3 (3.65-5.03) 09/06/17 06:16 Hgb 11.2 gm/dl (11.8-15.2) L 09/06/17 06:16 Hct 34.4 % (35.5-45.6) L 09/06/17 06:16 MCV 85 fl (84-94) 09/06/17 06:16 MCH 28 pg (28-32) 09/06/17 06:16 MCHC 33 % (32-34) 09/06/17 06:16 RDW 15.9 % (13.2-15.2) H 09/06/17 06:16 Plt Count 114 K/mm3 (140-440) L 09/06/17 06:16 Lymph % (Auto) 22.9 % (13.4-35.0) 09/06/17 06:16 [place] % (Auto) 12.5 % (0.0-7.3) H 09/06/17 06:16 Eos % (Auto) 9.1 % (0.0-4.3) H 09/06/17 06:16 Baso % (Auto) 0.8 % (0.0-1.8) 09/06/17 06:16 Lymph # 0.8 K/mm3 (1.2-5.4) L 09/06/17 06:16 [place] # 0.4 K/mm3 (0.0-0.8) 09/06/17 06:16 Eos # 0.3 K/mm3 (0.0-0.4) 09/06/17 06:16 Baso # 0.0 K/mm3 (0.0-0.1) 09/06/17 06:16 Seg Neutrophils % 54.7 % (40.0-70.0) 09/06/17 06:16 Seg Neutrophils # 1.9 K/mm3 (1.8-7.7) 09/06/17 06:16 PT 14.3 Sec. (12.2-14.9) 09/05/17 10:51 INR 1.06 (0.87-1.13) 09/05/17 10:51 APTT 28.6 Sec. (24.2-36.6) 09/05/17 10:51 Sodium 143 mmol/L (137-145) 09/06/17 06:16 Potassium 5.5 mmol/L (3.6-5.0) H 09/06/17 06:16 Chloride 112.8 mmol/L (98-107) H 09/06/17 06:16 Carbon Dioxide 17 mmol/L (22-30) L 09/06/17 06:16 Anion Gap 19 mmol/L 09/06/17 06:16 BUN 48 mg/dL (9-20) H 09/06/17 06:16 Creatinine 2.8 mg/dL (0.8-1.5) H 09/06/17 06:16 Estimated GFR 26 ml/min 09/06/17 06:16 BUN/Creatinine Ratio 17 % 09/06/17 06:16 Glucose 93 mg/dL (75-100) 09/06/17 06:16 Hemoglobin A1c 5.4 % (4-6) 09/05/17 15:59 Calcium 9.6 mg/dL (8.4-10.2) 09/06/17 06:16 Magnesium 2.20 mg/dL (1.7-2.3) 09/05/17 10:51 Total Bilirubin 0.30 mg/dL (0.1-1.2) 09/06/17 06:16 AST 19 units/L (5-40) 09/06/17 06:16 ALT 11 units/L (7-56) 09/06/17 06:16 Alkaline Phosphatase 51 units/L (35-129) 09/06/17 06:16 Total Creatine Kinase 478 units/L (55-170) H 09/06/17 06:16 CK-MB (CK-2) 5.6 ng/mL (0.0-4.0) H 09/06/17 06:16 CK-MB (CK-2) Rel Index 1.1 (0-4) 09/06/17 06:16 Troponin T 0.062 ng/mL (0.00-0.029) H 09/06/17 06:16 Total Protein 7.1 g/dL (6.3-8.2) 09/06/17 06:16 Albumin 3.7 g/dL (3.9-5) L 09/06/17 06:16 Albumin/Globulin Ratio 1.1 % 09/06/17 06:16 Triglycerides 72 mg/dL (2-149) 09/05/17 10:51 Cholesterol 141 mg/dL (50-199) 09/05/17 10:51 LDL Cholesterol Direct 61 mg/dL (50-130) 09/05/17 10:51 HDL Cholesterol 66 mg/dL (40-59) H 09/05/17 10:51 Cholesterol/HDL Ratio 2.13 % 09/05/17 10:51 Urine Color Straw (Yellow) 09/05/17 Unknown Urine Turbidity Clear (Clear) 09/05/17 Unknown Urine pH 5.0 (5.0-7.0) 09/05/17 Unknown Ur Specific [place] 1.009 (1.003-1.030) 09/05/17 Unknown Urine Protein 30 mg/dl mg/dL (Negative) 09/05/17 Unknown Urine Glucose (UA) Neg mg/dL (Negative) 09/05/17 Unknown Urine Ketones Neg mg/dL (Negative) 09/05/17 Unknown Urine Blood Sm (Negative) 09/05/17 Unknown Urine Nitrite Neg (Negative) 09/05/17 Unknown Urine Bilirubin Neg (Negative) 09/05/17 Unknown Urine Urobilinogen < 2.0 mg/dL (<2.0) 09/05/17 Unknown Ur Leukocyte Esterase Neg (Negative) 09/05/17 Unknown Urine WBC (Auto) < 1.0 /HPF (0.0-6.0) 09/05/17 Unknown Urine RBC (Auto) 1.0 /HPF (0.0-6.0) 09/05/17 Unknown U Epithel Cells (Auto) < 1.0 /HPF (0-13.0) 09/05/17 Unknown Urine Mucus Few /HPF 09/05/17 Unknown <MILTON CHAPMAN R - Last Filed: 09/23/17 10:52> Assessment and Plan Assessment and plan: I saw and evaluated the patient. I agree with the findings and the plan of care as documented in the Nurse Practitioner's~note, with the following corrections and additions. Hospitalist Physical - Constitutional Vitals: Temp Pulse Resp BP Pulse Ox 98.4 F 57 L 18 144/81 100 09/07/17 10:59 09/07/17 10:59 09/07/17 10:59 09/07/17 10:59 09/07/17 10:59 Results - Labs CBC & Chem 7: 09/09/17 05:51 09/09/17 05:51 Labs: Laboratory Last Values WBC 3.5 K/mm3 (4.5-11.0) L 09/06/17 06:16 RBC 4.05 M/mm3 (3.65-5.03) 09/06/17 06:16 Hgb 11.2 gm/dl (11.8-15.2) L 09/06/17 06:16 Hct 34.4 % (35.5-45.6) L 09/06/17 06:16 MCV 85 fl (84-94) 09/06/17 06:16 MCH 28 pg (28-32) 09/06/17 06:16 MCHC 33 % (32-34) 09/06/17 06:16 RDW 15.9 % (13.2-15.2) H 09/06/17 06:16 Plt Count 114 K/mm3 (140-440) L 09/06/17 06:16 Lymph % (Auto) 22.9 % (13.4-35.0) 09/06/17 06:16 [place] % (Auto) 12.5 % (0.0-7.3) H 09/06/17 06:16 Eos % (Auto) 9.1 % (0.0-4.3) H 09/06/17 06:16 Baso % (Auto) 0.8 % (0.0-1.8) 09/06/17 06:16 Lymph # 0.8 K/mm3 (1.2-5.4) L 09/06/17 06:16 [place] # 0.4 K/mm3 (0.0-0.8) 09/06/17 06:16 Eos # 0.3 K/mm3 (0.0-0.4) 09/06/17 06:16 Baso # 0.0 K/mm3 (0.0-0.1) 09/06/17 06:16 Seg Neutrophils % 54.7 % (40.0-70.0) 09/06/17 06:16 Seg Neutrophils # 1.9 K/mm3 (1.8-7.7) 09/06/17 06:16 PT 14.3 Sec. (12.2-14.9) 09/05/17 10:51 INR 1.06 (0.87-1.13) 09/05/17 10:51 APTT 28.6 Sec. (24.2-36.6) 09/05/17 10:51 Sodium 143 mmol/L (137-145) 09/06/17 06:16 Potassium 5.5 mmol/L (3.6-5.0) H 09/06/17 06:16 Chloride 112.8 mmol/L (98-107) H 09/06/17 06:16 Carbon Dioxide 17 mmol/L (22-30) L 09/06/17 06:16 Anion Gap 19 mmol/L 09/06/17 06:16 BUN 48 mg/dL (9-20) H 09/06/17 06:16 Creatinine 2.8 mg/dL (0.8-1.5) H 09/06/17 06:16 Estimated GFR 26 ml/min 09/06/17 06:16 BUN/Creatinine Ratio 17 % 09/06/17 06:16 Glucose 93 mg/dL (75-100) 09/06/17 06:16 Hemoglobin A1c 5.4 % (4-6) 09/05/17 15:59 Calcium 9.6 mg/dL (8.4-10.2) 09/06/17 06:16 Magnesium 2.20 mg/dL (1.7-2.3) 09/05/17 10:51 Total Bilirubin 0.30 mg/dL (0.1-1.2) 09/06/17 06:16 AST 19 units/L (5-40) 09/06/17 06:16 ALT 11 units/L (7-56) 09/06/17 06:16 Alkaline Phosphatase 51 units/L (35-129) 09/06/17 06:16 Total Creatine Kinase 478 units/L (55-170) H 09/06/17 06:16 CK-MB (CK-2) 5.6 ng/mL (0.0-4.0) H 09/06/17 06:16 CK-MB (CK-2) Rel Index 1.1 (0-4) 09/06/17 06:16 Troponin T 0.062 ng/mL (0.00-0.029) H 09/06/17 06:16 Total Protein 7.1 g/dL (6.3-8.2) 09/06/17 06:16 Albumin 3.7 g/dL (3.9-5) L 09/06/17 06:16 Albumin/Globulin Ratio 1.1 % 09/06/17 06:16 Triglycerides 72 mg/dL (2-149) 09/05/17 10:51 Cholesterol 141 mg/dL (50-199) 09/05/17 10:51 LDL Cholesterol Direct 61 mg/dL (50-130) 09/05/17 10:51 HDL Cholesterol 66 mg/dL (40-59) H 09/05/17 10:51 Cholesterol/HDL Ratio 2.13 % 09/05/17 10:51 Urine Color Straw (Yellow) 09/05/17 Unknown Urine Turbidity Clear (Clear) 09/05/17 Unknown Urine pH 5.0 (5.0-7.0) 09/05/17 Unknown Ur Specific [place] 1.009 (1.003-1.030) 09/05/17 Unknown Urine Protein 30 mg/dl mg/dL (Negative) 09/05/17 Unknown Urine Glucose (UA) Neg mg/dL (Negative) 09/05/17 Unknown Urine Ketones Neg mg/dL (Negative) 09/05/17 Unknown Urine Blood Sm (Negative) 09/05/17 Unknown Urine Nitrite Neg (Negative) 09/05/17 Unknown Urine Bilirubin Neg (Negative) 09/05/17 Unknown Urine Urobilinogen < 2.0 mg/dL (<2.0) 09/05/17 Unknown Ur Leukocyte Esterase Neg (Negative) 09/05/17 Unknown Urine WBC (Auto) < 1.0 /HPF (0.0-6.0) 09/05/17 Unknown Urine RBC (Auto) 1.0 /HPF (0.0-6.0) 09/05/17 Unknown U Epithel Cells (Auto) < 1.0 /HPF (0-13.0) 09/05/17 Unknown Urine Mucus Few /HPF 09/05/17 Unknown
[2017-09-06] MEDS: PRAVACHOL PO SCH (22:10)
--- NOTE | 2017-09-07 03:21 | Treadmill Report ---
NUCLEAR PERFUSION SCAN REFERRING PHYSICIAN: Dr. Barajas. PROTOCOL: The patient was brought to the stress lab in a postabsorptive state, given 10 mCi of technetium 99m at rest. The patient underwent rest imaging. The patient underwent Lexiscan stress test per standard protocol. At peak stress, the patient was given 26 mCi of technetium 99m. Shortly thereafter, the patient underwent stress imaging. Raw imaging reveals mild GI artifact, no significant motion artifact. SPECT images examined carefully in horizontal long axis, vertical long axis, and short axis views. Interpretation is normal homogenous uptake of radioisotope in all reported segments. No evidence of a significant fixed or reversible perfusion defects suggestive of prior infarction or ischemia. Gated wall motion reveals normal systolic thickening, calculated ejection fraction of 58%. No TID. CONCLUSIONS: 1. Abnormal myocardial perfusion scan without evidence of active ischemia or prior infarction. 2. Normal left ventricular systolic performance without evidence of transient ischemic dilatation or stress-induced segmental wall motion abnormalities. JOB# [id number] HAYDEE/VALE
[2017-09-07] MEDS: PEPCID PO SCH ×2 (10:18→21:51)
[2017-09-07] MEDS: LOPRESSOR PO SCH ×2 (10:18→21:50)
[2017-09-07] MEDS: ROCALTROL PO SCH (10:18)
[2017-09-07] MEDS: ARICEPT PO SCH (10:18)
[2017-09-07] MEDS: PLAVIX PO SCH (10:18)
[2017-09-07] MEDS: NORVASC PO SCH (10:18)
[2017-09-07] MEDS: HALFPRIN EC PO SCH (10:18)
[2017-09-07] MEDS: KEPPRA PO SCH ×2 (10:19→21:50)
--- NOTE | 2017-09-07 13:00 | Consultation ---
History of Present Illness - Reason for Consult Consult date: 09/07/17 acute renal failure, chronic renal failure, hyperkalemia, metabolic acidosis Requesting physician: IDA SKELTON - History of Present Illness Patient is a 82 years old male, history of hypertension, pacemaker, seizure. Presented via EMS after his called and told that she found him unresponsive on the floor after he went to the bathroom, unknown amount of time. Patient is back to his baseline now. Patient denied any chest pain, shortness of breath, cough. 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 Surgical History Hx Open Heart Surgery: Yes (CABG) Hx Pacemaker: Yes (new implant 10/11/16) Social History Smoking Status: Never Smoker Substance Use Type: None Review of Systems ROS: Stated complaint: SYNCOPE Other details as noted in HPI Comment: All other systems reviewed and negative Constitutional: denies: chills, fever ENT: denies: ear pain, throat pain Respiratory: denies: cough, orthopnea, shortness of breath, SOB with exertion Cardiovascular: denies: chest pain, palpitations, dyspnea on exertion Gastrointestinal: denies: abdominal pain, nausea, vomiting, diarrhea, constipation, hematemesis, melena, hematochezia Genitourinary: denies: urgency Musculoskeletal: denies: back pain, joint swelling Skin: denies: rash, lesions, change in color Neurological: denies: headache, weakness Medications and Allergies Allergies Allergy/AdvReac Type Severity Reaction Status Date / Time No Known Allergies Allergy Unverified 07/06/16 16:12 Home Medications Medication Instructions Recorded Confirmed Last Taken Type Amlodipine Besylate 10 mg PO DAILY 10/11/16 09/05/17 09/04/17 History Aspirin EC [Aspirin Enteric Coated 81 mg PO DAILY 10/11/16 09/05/17 09/04/17 History TAB] Clopidogrel Bisulfate [Clopidogrel] 75 mg PO DAILY 10/11/16 09/05/17 09/04/17 History Famotidine 20 mg PO BID 10/11/16 09/05/17 09/04/17 History Lovastatin 40 mg PO HS 10/11/16 09/05/17 09/04/17 History Metoprolol Tartrate 50 mg PO BID 10/11/16 09/05/17 09/04/17 History Vit D3/Folic Acid/B2/B6/B12 1 each PO DAILY 10/11/16 09/05/17 09/04/17 History [Folgard Tablet] levETIRAcetam [Levetiracetam] 750 mg PO BID 10/11/16 09/05/17 09/04/17 History Calcitriol [Rocaltrol] 0.25 mcg PO DAILY 09/05/17 09/05/17 09/04/17 History Donepezil [Aricept] 10 mg PO QDAY 09/05/17 09/05/17 09/04/17 History Spironolactone [Aldactone] 25 mg PO BID 09/05/17 09/05/17 09/04/17 History Active Meds: Active Medications Acetaminophen (Tylenol) 650 mg PO Q4H PRN PRN Reason: Pain MILD(1-3)/Fever >100.5/ZIMMERMAN Amlodipine Besylate (Norvasc) 10 mg PO DAILY [facility] Last Admin: 09/07/17 10:18 Dose: 10 mg Aspirin (Halfprin Ec) 81 mg PO DAILY [facility] Last Admin: 09/07/17 10:18 Dose: 81 mg Bisacodyl (Dulcolax) 10 mg PA QDAY PRN PRN Reason: Constipation unrelieved by MOM Calcitriol (Rocaltrol) 0.25 mcg PO DAILY [facility] Last Admin: 09/07/17 10:18 Dose: 0.25 mcg Clopidogrel Bisulfate (Plavix) 75 mg PO DAILY [facility] Last Admin: 09/07/17 10:18 Dose: 75 mg Donepezil HCl (Aricept) 10 mg PO QDAY [facility] Last Admin: 09/07/17 10:18 Dose: 10 mg Famotidine (Pepcid) 20 mg PO BID [facility] Last Admin: 09/07/17 10:18 Dose: 20 mg Dextrose/Sodium Chloride (D5ns) 1,000 mls @ 75 mls/hr IV DIRECT DAVID Levetiracetam (Keppra) 750 mg PO BID [facility] Last Admin: 09/07/17 10:19 Dose: 750 mg Magnesium Hydroxide (Milk Of Magnesia) 30 ml PO Q4H PRN PRN Reason: Constipation Metoclopramide HCl (Reglan) 10 mg IV Q6H PRN PRN Reason: Nausea And Vomiting Metoprolol Tartrate (Lopressor) 50 mg PO BID [facility] Last Admin: 09/07/17 10:18 Dose: 50 mg Morphine Sulfate (Morphine) 2 mg IV Q4H PRN PRN Reason: Pain, Moderate (4-6) Ondansetron HCl (Zofran) 4 mg IV Q8H PRN PRN Reason: N/V unrelieved by Reglan Oxycodone/Acetaminophen (Percocet 5/325) 1 tab PO Q6H PRN PRN Reason: Pain, Moderate (4-6) Pravastatin Sodium (Pravachol) 40 mg PO QHS [facility] Last Admin: 09/06/17 22:10 Dose: 40 mg Zolpidem Tartrate (Ambien) 5 mg PO QHS PRN PRN Reason: Insomnia Exam - Vital Signs Vital signs: Vital Signs Pulse Ox 100 09/05/17 10:28 - Physical Exam Narrative exam: appearance: Present: no acute distress, well-nourished - EENT Eyes: Present: PERRL ENT: hearing intact, clear oral mucosa - Neck Neck: Present: supple, normal ROM - Respiratory Respiratory effort: normal Respiratory: bilateral: CTA - Cardiovascular Heart rate: 80 Rhythm: regular Heart Sounds: Present: S1 & S2. Absent: rub, click - Extremities Extremities: no ischemia, pulses intact, pulses symmetrical, No edema Peripheral Pulses: within normal limits - Abdominal General gastrointestinal: Present: soft, non-tender, non-distended, normal bowel sounds Male genitourinary: Present: normal - Rectal Rectal Exam: deferred - Integumentary Integumentary: Present: clear, warm, dry - Musculoskeletal Musculoskeletal: gait normal, strength equal bilaterally - Psychiatric Psychiatric: appropriate mood/affect, intact judgment & insight - Neurologic Neurologic: CNII-XII intact, moves all extremities - Allied Health Allied health notes reviewed: nursing Results - Lab Results 09/06/17 06:16 09/06/17 06:16 Most recent lab results Calcium 9.6 mg/dL (8.4-10.2) 09/06/17 06:16 Magnesium 2.20 mg/dL (1.7-2.3) 09/05/17 10:51 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
--- NOTE | 2017-09-07 14:55 | Ultrasound Report ---
FINAL REPORT PROCEDURE: US RENAL BILAT TECHNIQUE: Real-time sonography in multiple planes of the kidneys, ureters and urinary bladder was performed with image documentation. CPT 60457 HISTORY: Chronic renal disease. COMPARISON: No prior studies are available for comparison. FINDINGS: The echogenicity of the renal cortex bilaterally appears increased consistent with chronic renal parenchymal disease. Multiple renal cortical cysts are visualized bilaterally. On the left the largest measures 2.2 centimeters greatest diameter, on the right the largest measures 4.4 centimeters greatest diameter. No solid masses calculi or hydronephrosis are visualized. The right kidney measures 10.6 x 5.7 x 5.0 centimeter. The left kidney measures 9.2 x 3.7 x 3.7 centimeter. Urinary bladder is only partially filled and shows no gross abnormality per IMPRESSION: There is evidence of chronic renal parenchymal disease. Multiple renal cortical cysts are visualized bilaterally as described.. No solid masses renal calculi or hydronephrosis visualized.
[2017-09-07] MEDS ORDERED: SODIUM BICARBONATE 150 MEQ in D5W 1,000 ML IV SCH (15:00)
[2017-09-07] MEDS: PRAVACHOL PO SCH (21:51)
[2017-09-08 07:35] LABS: Basophils % (Auto) 0.5 % (0.0-1.8); Eosinophils # (Auto) 0.5 K/mm3 (0.0-0.4); Eosinophils % (Auto) 9.3 % (0.0-4.3); Hematocrit 34.1 % (35.5-45.6); Hemoglobin 11.1 gm/dl (11.8-15.2); Lymphocytes # (Auto) 1.5 K/mm3 (1.2-5.4); Lymphocytes % (Auto) 30.1 % (13.4-35.0); Mean Corpuscular HGB Conc 33 % (32-34); Mean Corpuscular Hemoglobin 28 pg (28-32); Mean Corpuscular Volume 85 fl (84-94); Monocytes # (Auto) 0.7 K/mm3 (0.0-0.8); Monocytes % (Auto) 13.3 % (0.0-7.3); Platelet Count 110 K/mm3 (140-440); Red Blood Count 4.02 M/mm3 (3.65-5.03); Red Cell Distribution Width 15.3 % (13.2-15.2)
[2017-09-08 07:42] LABS: Calcium 9.3 mg/dL (8.4-10.2)
--- NOTE | 2017-09-08 10:14 | Progress Note ---
Assessment and Plan Assessment and plan: Syncope Carotid Doppler revealed no stenosis CT of the head shows no acute process Echocardiogram revealed mild concentric left ventricular hypertrophy with systolic function at lower limits. EF 50-55%. Stress test is without evidence of active ischemia or prior infarction. Normal left ventricular systolic performance without evidence of transient ischemic dilatation or stress-induced segmental wall motion abnormalities. Frequent neuro checks. Supportive care Hyperkalemia Kayexalate given Closely monitor elcetrolytes SERENE on CKD Patient appears to have a baseline creatinine of 2.2. Follow-up renal ultrasound. Elevated Troponin Etiology is likely secondary to renal insufficiency. Patient has elevated troponin on pervious labs. Continue on plavix aspirin and statins Consider Cardiology consult Hx of CABG Continue on plavix aspirin and statins HTN (hypertension) Continue on home antihypertensive medication IV hydralazine for SBP>160 Closely monitor BB Seizure disorder Continue Keppra Hyperlipidemia Continue Pravachol Deconditioning Patient reports frequent unsteadiness with ambulation. Patient may need SNF. PT/OT evaluation. Consider MRI if patient truly ataxic. DVT prophylaxis Lovenox History Interval history: No new issues overnight. Hospitalist Physical - Constitutional Vitals: Temp Pulse Resp BP Pulse Ox 98.5 F 66 18 134/68 99 09/08/17 03:35 09/08/17 03:35 09/08/17 03:35 09/08/17 03:35 09/08/17 03:35 General appearance: Present: no acute distress, well-nourished - EENT Eyes: Present: PERRL, EOM intact ENT: hearing intact, clear oral mucosa, dentition normal - Neck Neck: Present: supple, normal ROM - Respiratory Respiratory effort: normal Respiratory: bilateral: CTA - Cardiovascular Rhythm: regular Heart Sounds: Present: S1 & S2. Absent: gallop, rub - Extremities Extremities: no ischemia, No edema, Full ROM - Abdominal General gastrointestinal: soft, non-tender, non-distended, normal bowel sounds - Integumentary Integumentary: Present: clear, warm, dry - Neurologic Neurologic: CNII-XII intact, moves all extremities Results - Labs CBC & Chem 7: 09/08/17 06:28 09/08/17 06:28 Labs: Laboratory Last Values WBC 5.0 K/mm3 (4.5-11.0) 09/08/17 06:28 RBC 4.02 M/mm3 (3.65-5.03) 09/08/17 06:28 Hgb 11.1 gm/dl (11.8-15.2) L 09/08/17 06:28 Hct 34.1 % (35.5-45.6) L 09/08/17 06:28 MCV 85 fl (84-94) 09/08/17 06:28 MCH 28 pg (28-32) 09/08/17 06:28 MCHC 33 % (32-34) 09/08/17 06:28 RDW 15.3 % (13.2-15.2) H 09/08/17 06:28 Plt Count 110 K/mm3 (140-440) L 09/08/17 06:28 Lymph % (Auto) 30.1 % (13.4-35.0) 09/08/17 06:28 [place] % (Auto) 13.3 % (0.0-7.3) H 09/08/17 06:28 Eos % (Auto) 9.3 % (0.0-4.3) H 09/08/17 06:28 Baso % (Auto) 0.5 % (0.0-1.8) 09/08/17 06:28 Lymph # 1.5 K/mm3 (1.2-5.4) 09/08/17 06:28 [place] # 0.7 K/mm3 (0.0-0.8) 09/08/17 06:28 Eos # 0.5 K/mm3 (0.0-0.4) H 09/08/17 06:28 Baso # 0.0 K/mm3 (0.0-0.1) 09/08/17 06:28 Seg Neutrophils % 46.8 % (40.0-70.0) 09/08/17 06:28 Seg Neutrophils # 2.4 K/mm3 (1.8-7.7) 09/08/17 06:28 PT 14.3 Sec. (12.2-14.9) 09/05/17 10:51 INR 1.06 (0.87-1.13) 09/05/17 10:51 APTT 28.6 Sec. (24.2-36.6) 09/05/17 10:51 Sodium 141 mmol/L (137-145) 09/08/17 06:28 Potassium 4.3 mmol/L (3.6-5.0) D 09/08/17 06:28 Chloride 108.6 mmol/L (98-107) H 09/08/17 06:28 Carbon Dioxide 17 mmol/L (22-30) L 09/08/17 06:28 Anion Gap 20 mmol/L 09/08/17 06:28 BUN 49 mg/dL (9-20) H 09/08/17 06:28 Creatinine 3.1 mg/dL (0.8-1.5) H 09/08/17 06:28 Estimated GFR 23 ml/min 09/08/17 06:28 BUN/Creatinine Ratio 16 % 09/08/17 06:28 Glucose 116 mg/dL (75-100) H 09/08/17 06:28 Hemoglobin A1c 5.4 % (4-6) 09/05/17 15:59 Calcium 9.3 mg/dL (8.4-10.2) 09/08/17 06:28 Magnesium 2.20 mg/dL (1.7-2.3) 09/05/17 10:51 Total Bilirubin 0.30 mg/dL (0.1-1.2) 09/06/17 06:16 AST 19 units/L (5-40) 09/06/17 06:16 ALT 11 units/L (7-56) 09/06/17 06:16 Alkaline Phosphatase 51 units/L (35-129) 09/06/17 06:16 Total Creatine Kinase 478 units/L (55-170) H 09/06/17 06:16 CK-MB (CK-2) 5.6 ng/mL (0.0-4.0) H 09/06/17 06:16 CK-MB (CK-2) Rel Index 1.1 (0-4) 09/06/17 06:16 Troponin T 0.062 ng/mL (0.00-0.029) H 09/06/17 06:16 Total Protein 7.1 g/dL (6.3-8.2) 09/06/17 06:16 Albumin 3.7 g/dL (3.9-5) L 09/06/17 06:16 Albumin/Globulin Ratio 1.1 % 09/06/17 06:16 Triglycerides 72 mg/dL (2-149) 09/05/17 10:51 Cholesterol 141 mg/dL (50-199) 09/05/17 10:51 LDL Cholesterol Direct 61 mg/dL (50-130) 09/05/17 10:51 HDL Cholesterol 66 mg/dL (40-59) H 09/05/17 10:51 Cholesterol/HDL Ratio 2.13 % 09/05/17 10:51 Urine Color Straw (Yellow) 09/05/17 Unknown Urine Turbidity Clear (Clear) 09/05/17 Unknown Urine pH 5.0 (5.0-7.0) 09/05/17 Unknown Ur Specific [place] 1.009 (1.003-1.030) 09/05/17 Unknown Urine Protein 30 mg/dl mg/dL (Negative) 09/05/17 Unknown Urine Glucose (UA) Neg mg/dL (Negative) 09/05/17 Unknown Urine Ketones Neg mg/dL (Negative) 09/05/17 Unknown Urine Blood Sm (Negative) 09/05/17 Unknown Urine Nitrite Neg (Negative) 09/05/17 Unknown Urine Bilirubin Neg (Negative) 09/05/17 Unknown Urine Urobilinogen < 2.0 mg/dL (<2.0) 09/05/17 Unknown Ur Leukocyte Esterase Neg (Negative) 09/05/17 Unknown Urine WBC (Auto) < 1.0 /HPF (0.0-6.0) 09/05/17 Unknown Urine RBC (Auto) 1.0 /HPF (0.0-6.0) 09/05/17 Unknown U Epithel Cells (Auto) < 1.0 /HPF (0-13.0) 09/05/17 Unknown Urine Mucus Few /HPF 09/05/17 Unknown
[2017-09-08] MEDS: KEPPRA PO SCH ×2 (12:09→23:11)
[2017-09-08] MEDS: ROCALTROL PO SCH (12:10)
[2017-09-08] MEDS: ARICEPT PO SCH (12:10)
[2017-09-08] MEDS: LOPRESSOR PO SCH ×2 (12:11→23:13)
[2017-09-08] MEDS: PEPCID PO SCH ×2 (12:11→23:11)
--- NOTE | 2017-09-08 12:12 | Progress Note ---
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 * CAD * Arrhythmia * Syncope Plan: * cr is stable today * k is improved * serene likely due to volume depletion * renal us no hydro * gentle ivfs with po NA bicarb * daily lytes * avoid nephrotoxins * no indication for document control manager today * renal diet * potassium restriction Subjective Date of service: 09/08/17 Principal diagnosis: serene, hyperkalemia, metabolic acidosis Interval history: resting in bed today, no acute events Objective - Exam Narrative Exam: appearance: Present: no acute distress, well-nourished - EENT Eyes: Present: PERRL ENT: hearing intact, clear oral mucosa - Neck Neck: Present: supple, normal ROM - Respiratory Respiratory effort: normal Respiratory: bilateral: CTA - Cardiovascular Heart rate: 80 Rhythm: regular Heart Sounds: Present: S1 & S2. Absent: rub, click - Extremities Extremities: no ischemia, pulses intact, pulses symmetrical, No edema Peripheral Pulses: within normal limits - Abdominal General gastrointestinal: Present: soft, non-tender, non-distended, normal bowel sounds Male genitourinary: Present: normal - Rectal Rectal Exam: deferred - Integumentary Integumentary: Present: clear, warm, dry - Musculoskeletal Musculoskeletal: gait normal, strength equal bilaterally - Psychiatric Psychiatric: appropriate mood/affect, intact judgment & insight - Neurologic Neurologic: CNII-XII intact, moves all extremities - Allied Health Allied health notes reviewed: nursing - Vital Signs Vital signs: Vital Signs - 12hr 09/08/17 09/08/17 00:12 03:35 Temperature 98.9 F 98.5 F Pulse Rate 61 66 Respiratory 20 18 Rate Blood Pressure 134/68 Blood Pressure 137/52 [Right] O2 Sat by Pulse 99 99 Oximetry - Lab 09/08/17 06:28 09/08/17 06:28 Most recent lab results Calcium 9.3 mg/dL (8.4-10.2) 09/08/17 06:28 Magnesium 2.20 mg/dL (1.7-2.3) 09/05/17 10:51
[2017-09-08] MEDS: NORVASC PO SCH (12:13)
[2017-09-08] MEDS: HALFPRIN EC PO SCH (12:13)
[2017-09-08] MEDS: PLAVIX PO SCH (12:13)
[2017-09-08] MEDS ORDERED: NACL 0.9% 1000 ML 1,000 ML IV SCH (13:00)
[2017-09-08] MEDS: SODIUM BICARBONATE PO SCH ×2 (18:26→23:12)
[2017-09-08] MEDS: PRAVACHOL PO SCH (23:12)
[2017-09-09 06:51] LABS: Calcium 9.4 mg/dL (8.4-10.2)
[2017-09-09 06:54] LABS: Basophils % (Auto) 0.7 % (0.0-1.8); Eosinophils # (Auto) 0.2 K/mm3 (0.0-0.4); Eosinophils % (Auto) 7.2 % (0.0-4.3); Hematocrit 34.8 % (35.5-45.6); Hemoglobin 11.6 gm/dl (11.8-15.2); Lymphocytes # (Auto) 0.5 K/mm3 (1.2-5.4); Lymphocytes % (Auto) 19.1 % (13.4-35.0); Mean Corpuscular HGB Conc 33 % (32-34); Mean Corpuscular Hemoglobin 28 pg (28-32); Mean Corpuscular Volume 84 fl (84-94); Monocytes # (Auto) 0.4 K/mm3 (0.0-0.8); Monocytes % (Auto) 12.7 % (0.0-7.3); Platelet Count 105 K/mm3 (140-440); Red Blood Count 4.12 M/mm3 (3.65-5.03)
--- NOTE | 2017-09-09 11:16 | Progress Note ---
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 * CAD * Arrhythmia * Syncope Plan: * cr is better today * k is improved * serene likely due to volume depletion * renal us no hydro * gentle ivfs with po NA bicarb * daily lytes * avoid nephrotoxins * no indication for ore storage drier today * renal diet * potassium restriction * stable to hi home from renal standpoint, follow up office one week on po sodium bicarb Subjective Date of service: 09/09/17 Principal diagnosis: serene, hyperkalemia, metabolic acidosis Interval history: resting in bed today, no acute events Objective - Exam Narrative Exam: appearance: Present: no acute distress, well-nourished - EENT Eyes: Present: PERRL ENT: hearing intact, clear oral mucosa - Neck Neck: Present: supple, normal ROM - Respiratory Respiratory effort: normal Respiratory: bilateral: CTA - Cardiovascular Heart rate: 80 Rhythm: regular Heart Sounds: Present: S1 & S2. Absent: rub, click - Extremities Extremities: no ischemia, pulses intact, pulses symmetrical, No edema Peripheral Pulses: within normal limits - Abdominal General gastrointestinal: Present: soft, non-tender, non-distended, normal bowel sounds Male genitourinary: Present: normal - Rectal Rectal Exam: deferred - Integumentary Integumentary: Present: clear, warm, dry - Musculoskeletal Musculoskeletal: gait normal, strength equal bilaterally - Psychiatric Psychiatric: appropriate mood/affect, intact judgment & insight - Neurologic Neurologic: CNII-XII intact, moves all extremities - Allied Health Allied health notes reviewed: nursing - Vital Signs Vital signs: Vital Signs - 12hr 09/08/17 09/08/17 09/09/17 23:18 23:19 04:37 Temperature 97.6 F 99.5 F Pulse Rate 80 78 66 Respiratory 18 20 Rate Blood Pressure 173/86 164/87 O2 Sat by Pulse 97 96 95 Oximetry 09/09/17 07:43 Temperature 99.0 F Pulse Rate 60 Respiratory 16 Rate Blood Pressure 146/69 O2 Sat by Pulse 99 Oximetry - Lab 09/09/17 05:51 09/09/17 05:51 Most recent lab results Calcium 9.4 mg/dL (8.4-10.2) 09/09/17 05:51 Magnesium 2.20 mg/dL (1.7-2.3) 09/05/17 10:51
[2017-09-09] MEDS: HALFPRIN EC PO SCH (12:06)
[2017-09-09] MEDS: KEPPRA PO SCH (12:06)
[2017-09-09] MEDS: ROCALTROL PO SCH (12:06)
[2017-09-09] MEDS: SODIUM BICARBONATE PO SCH (12:08)
[2017-09-09] MEDS: LOPRESSOR PO SCH (12:10)
[2017-09-09] MEDS: ARICEPT PO SCH (12:11)
[2017-09-09] MEDS: PEPCID PO SCH (12:11)
[2017-09-09] MEDS: NORVASC PO SCH (12:12)
[2017-09-09] MEDS: PLAVIX PO SCH (12:17)
--- NOTE | 2017-09-09 16:00 | Discharge Summary ---
Providers - Providers Date of Admission: 09/05/17 12:42 Date of discharge: 09/09/17 Attending physician: MARIA TERESA RESTREPO 09/07/17 11:58 Consult to Physician [CONS] Routine Consulting Provider: JACK COREA Reason For Exam: renal failure Place consult to:: Dr. Corea Notified:: Lara MCLEAN Phone number called:: Was contact made?: Yes If yes, spoke with:: Tania service Time called:: 12:12 09/08/17 10:14 Physical Therapy Evaluation and Treat [CONS] Routine Comment: Reason For Exam: unsteady ambulation Primary care physician: FACING END TRIMMER Hospitalization Condition: Fair Disposition: DC/[place]-06 HOME UNDER HOME HL Exam - Constitutional Vitals: Temp Pulse Resp BP Pulse Ox 98.1 F 64 16 136/71 97 09/09/17 11:29 09/09/17 12:12 09/09/17 11:29 09/09/17 11:29 09/09/17 11:29 Plan Activity: advance as tolerated Diet: low fat, low cholesterol, low salt Special Instructions: physical therapy Durable Medical Equipment Needed Upon Discharge: Walker-Rolling Additional Instructions: 1.Follow up with PCP in 3-5 days. 2.Follow up with Dr. Racquel Martinez in 3-5 days. 3.Follow up with Machine [employer]inter Hose in 1 week. 4.Home Health Physical Therapy. 5.Rolling walker Follow up with: PRIMARY CARE, [Primary Care Provider] - 3-5 Days
[2017-09-09 16:38] VITALS: BP 137/72
[2017-09-10] MEDS ORDERED: PNEUMOVAX 23 IM ONE (12:00)
--- NOTE | 2017-09-11 15:05 | Vascular Lab Report ---
CAROTID DUPLEX STUDY: RIGHT PSVEDV CCA PROX:8214 CCA DIST:[id number] ICA PROX:[id number] ICA MID:[id number] ICA DIST:9634 ECA: 77 VERT: 37 8 LEFT PSVEDV CCA PROX:9217 CCA DIST:7515 ICA PROX:7018 ICA MID:7424 ICA DIST:7930 ECA: 60 VERT: 50 13 REASON FOR EXAM: Syncope. COMMENTS ON THE RIGHT: Doppler frequency analysis is consistent with 16 to 49 percent diameter reduction of the internal carotid artery. A small amount of calcified plaque is seen. The common carotid artery is patent. The external carotid artery is patent. The vertebral artery has antegrade flow. COMMENTS ON THE LEFT: Doppler frequency analysis is consistent with 16 to 49 percent diameter reduction of the internal carotid artery. A small amount of calcified plaque is seen. The common carotid artery is patent. The external carotid artery is patent. The vertebral artery has antegrade flow. IMPRESSION: Less than 50% diameter reduction in the internal carotid arteries bilaterally.
== END 2017-09-09 19:10 | disposition home health service (06) | DRG 69 ==
LOC: ED 10:16 → 4A 12:42
PROVIDERS: ADMIT Internal Medicine; ATTEND Internal Medicine
PROC: 3E0234Z Introduction of Serum, Toxoid and Vaccine into Muscle, Percutaneous Approach (ICD-10-PCS; principal; 2017-09-09)
DX: G45.9 Transient cerebral ischemic attack, unspecified (principal); E78.5 Hyperlipidemia, unspecified; Z23 Encounter for immunization; I10 Essential (primary) hypertension; E16.2 Hypoglycemia, unspecified
CPT/HCPCS: 36415; 70450; 71010; 76770; 78452; 80048; 80053; 80061; 81001; 82550; 82553; 82962; 83036; 83735; 84484; 85025; 85610; 85730; 90686; 90732; 93005; 93010; 93017; 93306; 93880; 96360; 96361; A9270-GY; A9502; G8978-GP; G8979-GP; G8980-GP; J0610; J2785; J7030; J7070

== ENCOUNTER 2017-11-10 19:30 | Inpatient (IN) | payer MEDICARE ==
[2017-11-10 20:19] LABS: Basophils # (Auto) 0.1 K/mm3 (0.0-0.1); Basophils % (Auto) 1.8 % (0.0-1.8); Eosinophils # (Auto) 0.1 K/mm3 (0.0-0.4); Eosinophils % (Auto) 4.6 % (0.0-4.3); Hematocrit 34.8 % (35.5-45.6); Hemoglobin 10.9 gm/dl (11.8-15.2); Lymphocytes % (Auto) 32.1 % (13.4-35.0); Mean Corpuscular HGB Conc 31 % (32-34); Mean Corpuscular Hemoglobin 28 pg (28-32); Mean Corpuscular Volume 88 fl (84-94); Monocytes # (Auto) 0.4 K/mm3 (0.0-0.8); Monocytes % (Auto) 13.9 % (0.0-7.3); Platelet Count 158 K/mm3 (140-440); Red Blood Count 3.94 M/mm3 (3.65-5.03); Red Cell Distribution Width 15.6 % (13.2-15.2)
[2017-11-10 20:35] LABS: INR 0.96 (0.87-1.13)
[2017-11-10 20:39] LABS: Calcium 9.9 mg/dL (8.4-10.2)
[2017-11-10] MEDS ORDERED: NACL 0.9% 500 ML 500 ML IV ONE (20:44)
[2017-11-10 21:08] LABS: Chol/HDL Ratio 2.66 %
--- NOTE | 2017-11-10 22:46 | Emergency Department Report ---
HPI - General Chief Complaint: Syncope Time Seen by Provider: 11/10/17 20:29 - HPI HPI: The patient is a 82-year-old female presents for evaluation of lightheadedness and dizziness for the past one day. He reports 3 episodes of sudden onset severe dizziness, constant for less than a few minute, exacerbated with ambulation and exertion, improved with rest and lying down. After his last episode of dizziness he subsequently experienced a syncope. The patient denies fever, headache, neck pain, paresthesias, focal motor weakness, blurry vision, ear pain, tinnitus, chest pain, hemoptysis, dyspnea, abdominal pain, confusion or altered mental status, or recent URI or diarrhea. ED Past Medical Hx - Past Medical History Previous Medical History?: Yes Hx Hypertension: Yes Hx Heart Attack/AMI: No Hx Congestive Heart Failure: No Hx Seizures: Yes (as a child under 1 yr old) Hx HIV: No - Surgical History Past Surgical History?: Yes Hx Open Heart Surgery: Yes (CABG) Hx Pacemaker: Yes (new implant 10/11/16) - Social History Smoking Status: Never Smoker Substance Use Type: None - Medications Home Medications: Home Medications Medication Instructions Recorded Confirmed Last Taken Type Amlodipine Besylate 10 mg PO DAILY 10/11/16 09/05/17 09/04/17 History Aspirin EC [Aspirin Enteric Coated 81 mg PO DAILY 10/11/16 09/05/17 09/04/17 History TAB] Clopidogrel Bisulfate [Clopidogrel] 75 mg PO DAILY 10/11/16 09/05/17 09/04/17 History Famotidine 20 mg PO BID 10/11/16 09/05/17 09/04/17 History Lovastatin 40 mg PO HS 10/11/16 09/05/17 09/04/17 History Metoprolol Tartrate 50 mg PO BID 10/11/16 09/05/17 09/04/17 History Vit D3/Folic Acid/B2/B6/B12 1 each PO DAILY 10/11/16 09/05/17 09/04/17 History [Folgard Tablet] levETIRAcetam [Levetiracetam] 750 mg PO BID 10/11/16 09/05/17 09/04/17 History Calcitriol [Rocaltrol] 0.25 mcg PO DAILY 12/28/17 12/28/17 12/27/17 History Donepezil [Aricept] 10 mg PO QDAY 09/05/17 09/05/17 09/04/17 History Sodium Bicarbonate 10 mg PO BID 11/11/17 11/11/17 Unknown History Spironolactone 25 mg PO BID 11/11/17 11/11/17 Unknown History ED Review of Systems ROS: Stated complaint: SYNCOPE Other details as noted in HPI Constitutional: reports dizziness denies: fever ENT: denies: throat or neck pain Respiratory: denies: cough, shortness of breath Cardiovascular: denies: chest pain Endocrine: denies unexplained weight loss or gain Gastrointestinal: denies: abdominal pain, nausea Genitourinary: denies: dysuria Musculoskeletal: denies: leg swelling Skin: denies: rash Neurological: denies: headache Hematological/Lymphatic: denies: easy bleeding or easy bruising Psych: denies sadness or hopelessness Physical Exam - Physical Exam Vital Signs: Vital Signs 11/10/17 11/10/17 11/10/17 19:41 19:45 20:01 Temperature Pulse Rate 65 58 L 61 Respiratory 18 18 16 Rate Blood Pressure 140/70 141/61 O2 Sat by Pulse 98 100 Oximetry 11/10/17 11/10/17 11/10/17 20:15 20:30 20:45 Temperature Pulse Rate 62 60 59 L Respiratory 17 16 15 Rate Blood Pressure 141/61 132/62 132/62 O2 Sat by Pulse 100 100 98 Oximetry 11/10/17 11/10/17 11/10/17 21:00 21:01 21:15 Temperature 98.9 F Pulse Rate 62 90 63 Respiratory 17 20 16 Rate Blood Pressure 135/69 135/69 O2 Sat by Pulse 100 98 98 Oximetry 11/10/17 11/10/17 11/10/17 21:31 21:45 22:01 Temperature Pulse Rate 61 65 60 Respiratory 16 10 L 15 Rate Blood Pressure 135/69 135/69 145/60 O2 Sat by Pulse 100 99 100 Oximetry Physical Exam: General: well-nourished, well-developed, no acute distress Head: Normocephalic, atraumatic Eyes: normal sclera ENT: Mucous membranes are pale and dry Neck: No neck stiffness, no cervical adenopathy Respiratory: Breath sounds equal bilaterally, no wheezing, rales, or rhonchi Cardio: S1 and S2 present, no murmurs, rubs, gallops, capillary refill is delayed Abdomen: Normoactive bowel sounds, soft abdomen, no rigidity, no guarding or rebound tenderness Musc: No pitting edema Skin: No rash Neuro: no facial drooping, normal speech Psych: Normal affect ED Course Vital Signs 11/10/17 11/10/17 11/10/17 19:41 19:45 20:01 Temperature Pulse Rate 65 58 L 61 Respiratory 18 18 16 Rate Blood Pressure 140/70 141/61 O2 Sat by Pulse 98 100 Oximetry 11/10/17 11/10/17 11/10/17 20:15 20:30 20:45 Temperature Pulse Rate 62 60 59 L Respiratory 17 16 15 Rate Blood Pressure 141/61 132/62 132/62 O2 Sat by Pulse 100 100 98 Oximetry 11/10/17 11/10/17 11/10/17 21:00 21:01 21:15 Temperature 98.9 F Pulse Rate 62 90 63 Respiratory 17 20 16 Rate Blood Pressure 135/69 135/69 O2 Sat by Pulse 100 98 98 Oximetry 11/10/17 11/10/17 11/10/17 21:31 21:45 22:01 Temperature Pulse Rate 61 65 60 Respiratory 16 10 L 15 Rate Blood Pressure 135/69 135/69 145/60 O2 Sat by Pulse 100 99 100 Oximetry ED Medical Decision Making - Lab Data Result diagrams: 11/10/17 20:00 11/10/17 20:00 - Medical Decision Making The patient was seen and examined by myself. The patient is placed on a property assessment monitor and continuous pulse ox. On initial evaluation, the patient was found to be in no distress. EKG was negative for findings suggestive of acute cardiac infarct. Labs and imaging are obtained. The patient is given normal saline fluid bolus. Chest x-ray is negative for pneumothorax, focal consolidation, pulmonary vascular congestion, pleural effusion, or other obvious acute cardiopulmonary disease process. Lab results revealed elevated potassium 5.1, elevated creatinine of 4, and the patient baseline, and otherwise labs are grossly unremarkable. As patient has increased creatinine from baseline and hyperkalemia, the patient will be admitted. The on-call hospitalist service was contacted. They agreed to admit the patient for further treatment and close monitoring. The ED admit order was placed. The patient was admitted in guarded condition. Critical care attestation.: If time is entered above; I have spent that time in minutes in the direct care of this critically ill patient, excluding procedure time. ED Disposition Clinical Impression: Syncope and collapse, Acute hyperkalemia, Dehydration Acute renal failure Qualifiers: Acute renal failure type: unspecified Qualified Code(s): N17.9 - Acute kidney failure, unspecified Disposition: OP ADMIT IP TO THIS HOSP Is pt being admited?: Yes Does the pt Need Aspirin: Yes Condition: Serious Instructions: Syncope (ED) Referrals: MARIA TERESA PÉREZ MD [Primary Care Provider] - 3-5 Days Time of Disposition: 22:45
--- NOTE | 2017-11-10 23:59 | History and Physical Report ---
History of Present Illness Date of examination: 11/10/17 History of present illness: 82-year-old man with a history of hypertension, seizure, coronary artery disease , chronic kidney disease, dementia state he was walking from the kitchen when he felt dizzy and fell to the floor. There was no loss of consciousness Review Of Systems: Constitutional: no weight loss Ears, eyes, nose, mouth and throat: no nasal congestion, no nasal discharge, no sinus pressure, blurry vision, diplopia Neck: No neck pain or rigidity. Cardiovascular: chest pain, palpitations Respiratory: No cough, shortness of breath Gastrointestinal: no abdominal pain, hematochezia Genitourinary : no dysuria, frequency , hematuria Musculoskeletal: no muscle ache Integumentary: no rash, no pruritis Neurological: no parathesias, focal weakness Endocrine: no cold or heat intolerance, no polyuria or polydipsia Hematologic/Lymphatic: no easy bruising, no easy bleeding, no gland swelling Allergic/Immunologic: no urticaria, no angioedema. PAST MEDICAL HISTORY: Hypertension, seizure, coronary artery disease, dementia, chronic kidney disease PAST SURGICAL HISTORY: Pacemaker, CABG SOCIAL HISTORY: Denies alcohol, tobacco, drugs FAMILY HISTORY: Hypertension Medications and Allergies Allergies Allergy/AdvReac Type Severity Reaction Status Date / Time No Known Allergies Allergy Unverified 07/06/16 16:12 Home Medications Medication Instructions Recorded Confirmed Last Taken Type Amlodipine Besylate 10 mg PO DAILY 10/11/16 11/11/17 09/04/17 History Aspirin EC [Aspirin Enteric Coated 81 mg PO DAILY 10/11/16 11/11/17 09/04/17 History TAB] Clopidogrel Bisulfate [Clopidogrel] 75 mg PO DAILY 10/11/16 11/11/17 09/04/17 History Famotidine 20 mg PO BID 10/11/16 11/11/17 09/04/17 History Lovastatin 40 mg PO HS 10/11/16 11/11/17 09/04/17 History Metoprolol Tartrate 50 mg PO BID 10/11/16 11/11/17 09/04/17 History Vit D3/Folic Acid/B2/B6/B12 1 each PO DAILY 10/11/16 11/11/17 09/04/17 History [Folgard Tablet] levETIRAcetam [Levetiracetam] 750 mg PO BID 0211/11/17 09/04/17 History Calcitriol [Rocaltrol] 0.25 mcg PO DAILY 09/05/17 11/11/17 09/04/17 History Donepezil [Aricept] 10 mg PO QDAY 09/05/17 11/11/17 09/04/17 History Sodium Bicarbonate 10 mg PO BID 11/11/17 11/11/17 Unknown History Exam - Physical Exam Narrative exam: Gen. appearance: Patient lying in bed, no apparent distress HEENT: Normocephalic, atraumatic, pupils equally round and reactive to light, extraocular movement intact, and no sclericterus,. No JVD or thyromegaly or nodule,neck supple, no carotid bruit ,mucous membranes moist, no exudate or erythema Heart: S1, S2, regular rate and rhythm Lungs: Clear to auscultation bilaterally, breathing comfortable Abdomen: Positive bowel sounds, nontender, nondistended, no organomegaly Extremity: No edema, cyanosis, clubbing Skin: No rash, nodules, warm, dry Neuro: Oriented 3, cranial nerves II-12 intact, speech is fluent, motor and sensory intact - Constitutional Vitals: Temp Pulse Resp BP Pulse Ox 98.9 F 60 15 145/60 100 11/10/17 21:01 11/10/17 22:01 11/10/17 22:01 11/10/17 22:01 11/10/17 22:01 Results - Labs CBC & Chem 7: 11/12/17 06:25 11/14/17 06:34 Labs: Abnormal lab results 11/10/17 11/10/17 11/10/17 Range/Units 20:00 20:00 20:00 WBC 3.1 L (4.5-11.0) K/mm3 Hgb 10.9 L (11.8-15.2) gm/dl Hct 34.8 L (35.5-45.6) % MCHC 31 L (32-34) % RDW 15.6 H (13.2-15.2) % [place] % (Auto) 13.9 H (0.0-7.3) % Eos % (Auto) 4.6 H (0.0-4.3) % Lymph # 1.0 L (1.2-5.4) K/mm3 Seg Neutrophils # 1.5 L (1.8-7.7) K/mm3 Potassium 5.1 H (3.6-5.0) mmol/L Carbon Dioxide 16 L (22-30) mmol/L BUN 67 H (9-20) mg/dL Creatinine 4.0 H (0.8-1.5) mg/dL Troponin T 0.073 H (0.00-0.029) ng/mL NT-Pro-B Natriuret Pep 924.9 H (0-900) pg/mL - Imaging and Cardiology EKG: image reviewed Assessment and Plan Assessment Acute on chronic renal failure Near syncope Hypertension Seizure Coronary artery disease Dementia Plan Admit to medicine Start IV fluid, check US kidneys, cardiac enzymes, orthostatics, d-dimer, consult cardiology, Continue appropriate outpatient medications DVT prophylaxis d-dimer elevated, check v/q
[2017-11-11] MEDS: NACL 0.45% 1000 ML 1,000 ML IV SCH ×2 (00:47→05:51)
[2017-11-11] MEDS ORDERED: DULCOLAX PR PRN (02:41)
[2017-11-11] MEDS ORDERED: TYLENOL PO PRN (02:41)
[2017-11-11] MEDS ORDERED: MILK OF MAGNESIA PO PRN (02:41)
[2017-11-11] MEDS ORDERED: ZOFRAN IV PRN (02:41)
[2017-11-11 04:01] LABS: Creatine Kinase MB 4.6 ng/mL (0.0-4.0)
[2017-11-11] MEDS ORDERED: ASPIRIN PO ONE (05:04)
[2017-11-11] MEDS: LOPRESSOR PO SCH ×2 (09:09→22:08)
[2017-11-11] MEDS ORDERED: PEPCID PO SCH (10:00)
[2017-11-11] MEDS ORDERED: LEVETIRACETAM 750 MG PO SCH (10:00)
[2017-11-11] MEDS ORDERED: NON-FORMULARY (Vit D3/Folic Acid/B2/B6/B12 [Folgard Tablet] 1 EACH) PO SCH (10:00)
[2017-11-11] MEDS ORDERED: SODIUM BICARBONATE 10 MG PO SCH (10:00)
--- NOTE | 2017-11-11 10:00 | Nuclear Medicine Report ---
LUNG SCAN, VENTILATION AND PERFUSION: History: Evaluate for pulmonary embolus. Technique: 5mci of Tc99m MAA was infused for the perfusion images. 15mci XE 133 gas was inhaled for the ventilatory images. Correlation is made with a chest x-ray dated 11/11/17. Findings: Inhalation of Xenon gas demonstrates a normal distribution of the activity throughout both lungs. The wash out phases show no focal retention of activity. After injection of Technetium 99m macroaggregated albumin gamma camera imaging of the lungs in multiple projections demonstrates normal pulmonary contours with a homogeneous distribution of activity. No focal areas of perfusion deficiency are identified. IMPRESSION: Low probability for pulmonary embolus.
--- NOTE | 2017-11-11 10:00 | XRay Report ---
AP CHEST: HISTORY: For VQ scan, pulmonary embolus AP view of the chest demonstrates a normal mediastinal and cardiac contour with clear lungs and normal bony and soft tissue structures. CABG changes and pacemaker device are noted. IMPRESSION: Unremarkable AP chest.
--- NOTE | 2017-11-11 10:06 | Consultation ---
History of Present Illness - Reason for Consult Consult date: 11/11/17 acute renal failure, chronic renal failure Requesting physician: LILY RAWLS - History of Present Illness 8-year-old man with a history of hypertension, seizure, coronary artery disease , chronic kidney disease, dementia state he was walking from the kitchen when he felt dizzy and fell to the floor. There was no loss of consciousness. Patient denies any nausea or vomiting or diarrhea. Denies any shortness of breath. He also denies any significant nonsteroidal intake. Denies any difficulty passing urine. He however does complain of some discomfort in his right flank area. He follows up with Dr. Resendiz in the office Past History Past Medical History: CAD, hypertension, renal failure, other (dementia) Social history: no significant social history, other (denies smoking or drinking ) Family history: other (family history negative for kidney disease) Medications and Allergies Allergies Allergy/AdvReac Type Severity Reaction Status Date / Time No Known Allergies Allergy Unverified 07/06/16 16:12 Home Medications Medication Instructions Recorded Confirmed Last Taken Type Amlodipine Besylate 10 mg PO DAILY 10/11/16 11/11/17 09/04/17 History Aspirin EC [Aspirin Enteric Coated 81 mg PO DAILY 10/11/16 11/11/17 09/04/17 History TAB] Clopidogrel Bisulfate [Clopidogrel] 75 mg PO DAILY 10/11/16 11/11/17 09/04/17 History Famotidine 20 mg PO BID 10/11/16 11/11/17 09/04/17 History Lovastatin 40 mg PO HS 10/11/16 11/11/17 09/04/17 History Metoprolol Tartrate 50 mg PO BID 10/11/16 11/11/17 09/04/17 History Vit D3/Folic Acid/B2/B6/B12 1 each PO DAILY 10/11/16 11/11/17 09/04/17 History [Folgard Tablet] levETIRAcetam [Levetiracetam] 750 mg PO BID 10/11/16 11/11/17 09/04/17 History Calcitriol [Rocaltrol] 0.25 mcg PO DAILY 09/05/17 11/11/17 09/04/17 History Donepezil [Aricept] 10 mg PO QDAY 09/05/17 11/11/17 09/04/17 History Sodium Bicarbonate 10 mg PO BID 11/11/17 11/11/17 Unknown History Spironolactone 25 mg PO BID 11/11/17 11/11/17 Unknown History Active Meds: Active Medications Acetaminophen (Tylenol) 650 mg PO Q4H PRN PRN Reason: Pain MILD(1-3)/Fever >100.5/[facility] Amlodipine Besylate (Norvasc) 10 mg PO DAILY [facility] Aspirin (Halfprin Ec) 81 mg PO DAILY [facility] Bisacodyl (Dulcolax) 10 mg ID QDAY PRN PRN Reason: [place] [facility] [place] Calcitriol (Rocaltrol) 0.25 mcg PO DAILY [facility] Clopidogrel Bisulfate (Plavix) 75 mg PO DAILY [facility] Donepezil HCl (Aricept) 10 mg PO QDAY [facility] Enoxaparin Sodium (Lovenox) 30 mg SUB-Q QDAY [facility] Famotidine (Pepcid) 10 mg PO BID [facility] Sodium Chloride (Nacl 0.45% 1000 Ml) 1,000 mls @ 75 mls/hr IV DIRECT [facility] Last Admin: 11/11/17 05:51 Dose: 75 mls/hr Levetiracetam (Keppra) 750 mg PO BID [facility] Magnesium Hydroxide (Milk Of Magnesia) 30 ml PO Q4H PRN PRN Reason: Constipation Metoprolol Tartrate (Lopressor) 50 mg PO BID [facility] Last Admin: 11/11/17 09:09 Dose: Not Given Miscellaneous Medication (Vit D3/Folic Acid/B2/B6/B12 [Folgard Tablet]) 1 each PO DAILY [facility] Ondansetron HCl (Zofran) 4 mg IV Q8H PRN PRN Reason: N/V unrelieved by Mike Pravastatin Sodium (Pravachol) 40 mg PO QHS [facility] Sodium Bicarbonate (Sodium Bicarbonate) 650 mg PO BID [facility] Review of Systems All systems: negative (negative except as noted above) Exam - Vital Signs Vital signs: Vital Signs Pulse Resp 65 18 11/10/17 19:41 11/10/17 19:41 - General Appearance General appearance: well-developed, well-nourished, appears stated age EENT: PERRL, mucous membranes moist Neck: Present: neck supple, trachea midline. 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 * gentle ivfs . Add sodium bicarbonate with IV fluid * daily lytes * Shall check a UA, fraction excretion of sodium as well as a renal ultrasound * avoid nephrotoxins * no indication for brim molder today * renal diet * potassium restriction
[2017-11-11] MEDS: PEPCID PO SCH ×2 (10:15→22:03)
[2017-11-11] MEDS: KEPPRA PO SCH ×2 (10:15→22:03)
[2017-11-11] MEDS: ARICEPT PO SCH (10:16)
[2017-11-11] MEDS: SODIUM BICARBONATE PO SCH ×2 (10:16→22:03)
[2017-11-11] MEDS: NORVASC PO SCH (10:16)
[2017-11-11] MEDS: HALFPRIN EC PO SCH (10:17)
[2017-11-11] MEDS: PLAVIX PO SCH (10:17)
[2017-11-11] MEDS: LOVENOX SUB-Q SCH (10:17)
[2017-11-11] MEDS: ROCALTROL PO SCH (10:18)
--- NOTE | 2017-11-11 10:21 | Consultation ---
History of Present Illness Consult date: 11/11/17 Requesting physician: LILY RAWLS Consult reason: other (near syncope) History of present illness: The pt is an 82 YO male with a past medical history significant for CAD s/p CABG , AV block with PPM in situ, CKD, seizures, HTN, HLP, dementia. He is followed in our office by Dr. Brand. He presented with c/o near syncope. Per pt's , pt was washing dishes in the kitchen yesterday when he fell to the floor. Per pt's , pt c/o dizziness and then fell. There was no loss of consciousness noted. Following admission, pt was noted to have dehydration with SERENE on CKD with hyperkalemia. DDimer was elevated, V/Q scan with low prob for PE. On evaluation , pt denies any current complaints. Of note, pt was admitted to [facility] in 09/2017 for acute on chronic CKD and syncope. He underwent lexiscan MPI stress test which was negative for ischemia, normal LV systolic performance without evidence of TID. Echo done 09/05/2017 showed EF 50-55%, mild LVH, mod AV sclerosis, mild MR, mild dilatation of the ascending aorta. Past History Past Medical History: CAD, hypertension, renal failure, other (dementia) Social history: no significant social history, other (denies smoking or drinking ) Family history: other (family history negative for kidney disease) Medications and Allergies Allergies Allergy/AdvReac Type Severity Reaction Status Date / Time No Known Allergies Allergy Unverified 07/06/16 16:12 Home Medications Medication Instructions Recorded Confirmed Last Taken Type Amlodipine Besylate 10 mg PO DAILY 10/11/16 11/11/17 09/04/17 History Aspirin EC [Aspirin Enteric Coated 81 mg PO DAILY 10/11/16 11/11/17 09/04/17 History TAB] Clopidogrel Bisulfate [Clopidogrel] 75 mg PO DAILY 10/11/16 11/11/17 09/04/17 History Famotidine 20 mg PO BID 10/11/16 11/11/17 09/04/17 History Lovastatin 40 mg PO HS 10/11/16 11/11/17 09/04/17 History Metoprolol Tartrate 50 mg PO BID 10/11/16 11/11/17 09/04/17 History Vit D3/Folic Acid/B2/B6/B12 1 each PO DAILY 10/11/16 11/11/17 09/04/17 History [Folgard Tablet] levETIRAcetam [Levetiracetam] 750 mg PO BID 10/11/16 11/11/17 09/04/17 History Calcitriol [Rocaltrol] 0.25 mcg PO DAILY 09/05/17 11/11/17 09/04/17 History Donepezil [Aricept] 10 mg PO QDAY 09/05/17 11/11/17 09/04/17 History Sodium Bicarbonate 10 mg PO BID 11/11/17 11/11/17 Unknown History Spironolactone 25 mg PO BID 11/11/17 11/11/17 Unknown History Active Meds: Active Medications Acetaminophen (Tylenol) 650 mg PO Q4H PRN PRN Reason: Pain MILD(1-3)/Fever >100.5/ZIMMERMAN Amlodipine Besylate (Norvasc) 10 mg PO DAILY [facility] Last Admin: 11/11/17 10:16 Dose: 10 mg Aspirin (Halfprin Ec) 81 mg PO DAILY [facility] Last Admin: 11/11/17 10:17 Dose: 81 mg Bisacodyl (Dulcolax) 10 mg TN QDAY PRN PRN Reason: Constipation unrelieved by MOM Calcitriol (Rocaltrol) 0.25 mcg PO DAILY [facility] Last Admin: 11/11/17 10:18 Dose: 0.25 mcg Clopidogrel Bisulfate (Plavix) 75 mg PO DAILY [facility] Last Admin: 11/11/17 10:17 Dose: 75 mg Donepezil HCl (Aricept) 10 mg PO QDAY [facility] Last Admin: 11/11/17 10:16 Dose: 10 mg Enoxaparin Sodium (Lovenox) 30 mg SUB-Q QDAY [facility] Last Admin: 11/11/17 10:17 Dose: 30 mg Famotidine (Pepcid) 10 mg PO BID [facility] Last Admin: 11/11/17 10:15 Dose: 10 mg Sodium Bicarbonate 75 meq/ (Sodium Chloride) 1,075 mls @ 100 mls/hr IV DIRECT DAVID Levetiracetam (Keppra) 750 mg PO BID [facility] Last Admin: 11/11/17 10:15 Dose: 750 mg Magnesium Hydroxide (Milk Of Magnesia) 30 ml PO Q4H PRN PRN Reason: Constipation Metoprolol Tartrate (Lopressor) 50 mg PO BID [facility] Last Admin: 11/11/17 09:09 Dose: Not Given Miscellaneous Medication (Vit D3/Folic Acid/B2/B6/B12 [Folgard Tablet]) 1 each PO DAILY [facility] Ondansetron HCl (Zofran) 4 mg IV Q8H PRN PRN Reason: N/V unrelieved by Reglan Pravastatin Sodium (Pravachol) 40 mg PO QHS [facility] Sodium Bicarbonate (Sodium Bicarbonate) 650 mg PO BID [facility] Last Admin: 11/11/17 10:16 Dose: 650 mg Review of Systems Constitutional: no weight loss, no weight gain, no fever, no chills, no sweats Ears, nose, mouth and throat: no ear pain, no nose pain, no sinus pressure, no sinus pain Cardiovascular: lightheadedness, no chest pain, no orthopnea, no palpitations, no rapid/irregular heart beat, no edema, no syncope, no shortness of breath, no dyspnea on exertion Respiratory: no cough Gastrointestinal: no abdominal pain, no nausea, no vomiting, no diarrhea, no constipation, no change in bowel habits Genitourinary Male: no dysuria, no hematuria, no flank pain, no discharge, no urinary frequency, no urinary hesitancy Musculoskeletal: no neck stiffness, no neck pain, no shooting arm pain, no arm numbness/tingling, no low back pain, no shooting leg pain, no leg numbness/ tingling, no redness of joints Integumentary: no rash, no pruritis, no redness, no sores, no wounds Neurological: no head injury, no paralysis, no weakness, no parathesias, no numbness, no tingling, no seizures, no syncope Psychiatric: no anxiety Endocrine: no cold intolerance, no heat intolerance Hematologic/Lymphatic: no easy bruising, no easy bleeding, no lymphadenopathy Allergic/Immunologic: no urticaria, no wheezing, no persistent infections Physical Examination Vital Signs Pulse Resp 65 18 11/10/17 19:41 11/10/17 19:41 General appearance: no acute distress HEENT: Positive: PERRL, Normocephaly, Mucus Membranes Moist Neck: Positive: neck supple, trachea midline Cardiac: Positive: Reg Rate and Rhythm, S1/S2 Lungs: Positive: clear to auscultation Neuro: Positive: Grossly Intact Abdomen: Positive: Soft. Negative: Tender Skin: Positive: Clear. Negative: Rash, Wound Musculoskeletal: No Fluid Collection, No Pain, Normal Range of Motion Extremities: Absent: edema Results 11/10/17 20:00 11/10/17 20:00 Cardiac Enzymes 11/11/17 Range/Units 03:08 CK-MB (CK-2) 4.6 H (0.0-4.0) ng/mL Coagulation 11/10/17 Range/Units 20:00 PT 13.3 (12.2-14.9) Sec. INR 0.96 (0.87-1.13) APTT 29.0 (24.2-36.6) Sec. Lipids 11/10/17 Range/Units 20:00 Triglycerides 56 (2-149) mg/dL Cholesterol 144 (50-199) mg/dL HDL Cholesterol 54 (40-59) mg/dL Cholesterol/HDL Ratio 2.66 % CBC 11/10/17 Range/Units 20:00 WBC 3.1 L (4.5-11.0) K/mm3 RBC 3.94 (3.65-5.03) M/mm3 Hgb 10.9 L (11.8-15.2) gm/dl Hct 34.8 L (35.5-45.6) % Plt Count 158 (140-440) K/mm3 Lymph # 1.0 L (1.2-5.4) K/mm3 [place] # 0.4 (0.0-0.8) K/mm3 Eos # 0.1 (0.0-0.4) K/mm3 Baso # 0.1 (0.0-0.1) K/mm3 Comprehensive Metabolic Panel 11/10/17 Range/Units 20:00 Sodium 138 (137-145) mmol/L Potassium 5.1 H (3.6-5.0) mmol/L Chloride 101.9 (98-107) mmol/L Carbon Dioxide 16 L (22-30) mmol/L BUN 67 H (9-20) mg/dL Creatinine 4.0 H (0.8-1.5) mg/dL Glucose 93 (75-100) mg/dL Calcium 9.9 (8.4-10.2) mg/dL - Imaging and Cardiology Echo: report reviewed (09/05/2017 showed EF 50-55%, mild LVH, mod AV sclerosis, mild MR, mild dilatation of the ascending aorta. ) EKG: report reviewed, image reviewed EKG interpretations - Telemetry EKG Rhythm: Paced Pacemaker: ventricular pacing w/capt Assessment and Plan Assessment: Near syncope SERENE on CKD / Dehydration Elevated DDimer - V/Q scan low prob for PE CAD s/p CABG H/o symptomatic bradycardia / PPM in situ H/o seizures HTN HLP Dementia Plan: Currently stable cardiac status. Cont present cardiac regimen. PPM interrogation 10/03/2017 showed normal device function. Suspect near syncope secondary to dehydration. No indication for repeat echo or ischemic eval at this time given recent w/u in 09/2017. Cont tele. Assessment and plan reviewed with pt and pt's at bedside. The patient has been seen in conjunction with Dr. Glover who agrees with the assessment and plan of care.
[2017-11-11 12:27] LABS: Creatine Kinase MB 4.4 ng/mL (0.0-4.0)
[2017-11-11] MEDS ORDERED: Renal Caps PO SCH (13:00)
--- NOTE | 2017-11-11 14:33 | Ultrasound Report ---
ULTRASOUND RENAL BILATERAL HISTORY: Acute renal failure. TECHNIQUE: transabdominal ultrasound with color Doppler interrogation. FINDINGS: The right kidney measures 10.4 x 4.5 x 6.9cm. Right renal cortex: 1.6cm. The left kidney measures 9.2 x 4.1 x 6.3cm. Left renal cortex: 1.4cm. Both kidneys remain echogenic consistent with nonspecific renal parenchymal disease. There are scattered bilateral simple renal cysts. The largest cyst measures 4.8 cm in the mid right kidney. The largest cyst in the left kidney measures 2.0 cm near mid pole. There is no evidence for shadowing calculus, hypervascular mass or hydronephrosis. The bladder is partially empty but unremarkable. IMPRESSION: Echogenic kidneys consistent with nonspecific renal parenchymal disease. Bilateral simple appearing renal cysts. No obstructive uropathy. No significant change since 09/07/17.
[2017-11-11 15:08] LABS: Hematocrit 32.3 % (35.5-45.6); Hemoglobin 10.4 gm/dl (11.8-15.2); Mean Corpuscular HGB Conc 32 % (32-34); Mean Corpuscular Hemoglobin 27 pg (28-32); Mean Corpuscular Volume 84 fl (84-94); Platelet Count 126 K/mm3 (140-440); Red Blood Count 3.83 M/mm3 (3.65-5.03)
[2017-11-11 15:22] LABS: Calcium 9.8 mg/dL (8.4-10.2)
--- NOTE | 2017-11-11 15:53 | Progress Note ---
<FELICIA GALLO - Last Filed: 11/11/17 15:42> Assessment and Plan Assessment and plan: 82-year-old man with a history of hypertension, seizure, coronary artery disease , chronic kidney disease, dementia state he was walking from the kitchen when he felt dizzy and fell to the floor. There was no loss of consciousness Acute on chronic renal failure Renal US showed Echogenic kidneys consistent with nonspecific renal parenchymal disease. Bilateral simple appearing renal cysts. No obstructive uropathy. No significant change since 09/07/17. Nephrology following, gentle hydration for now Elevated D dimer VQ scan shows Low probability for pulmonary embolus Near syncope check orthostatics Hypertension Controlled on current regimen, continue Seizure Continue antiseizure medication Coronary artery disease Continue statin therapy Dementia supportive care, Continue Aricept Hyperkalemia Low potassium diet DVT prophylaxis Lovenox History Interval history: Patient seen and examined with at bedside. He denies CPm SOB, [place]. Labs and nursing notes reviewed. Hospitalist Physical - Constitutional Vitals: Temp Pulse Resp BP Pulse Ox 98.3 F 59 L 16 145/68 96 11/11/17 09:37 11/11/17 10:16 11/11/17 09:37 11/11/17 10:16 11/11/17 08:52 General appearance: Present: no acute distress, well-nourished - EENT Eyes: Present: PERRL, EOM intact ENT: hearing intact, clear oral mucosa - Neck Neck: Present: supple, normal ROM - Respiratory Respiratory effort: normal Respiratory: bilateral: CTA - Cardiovascular Rhythm: regular Heart Sounds: Present: S1 & S2 - Extremities Extremities: no ischemia, No edema - Abdominal General gastrointestinal: soft, tender, non-distended Localized gastrointestinal: tender: RUQ - Integumentary Integumentary: Present: clear, warm, dry - Psychiatric Psychiatric: appropriate mood/affect, intact judgment & insight, cooperative - Neurologic Neurologic: CNII-XII intact, moves all extremities - Allied Health Allied health notes reviewed: nursing Results - Labs CBC & Chem 7: 11/11/17 14:55 11/11/17 14:55 Labs: Laboratory Last Values WBC 2.6 K/mm3 (4.5-11.0) L 11/11/17 14:55 RBC 3.83 M/mm3 (3.65-5.03) 11/11/17 14:55 Hgb 10.4 gm/dl (11.8-15.2) L 11/11/17 14:55 Hct 32.3 % (35.5-45.6) L 11/11/17 14:55 MCV 84 fl (84-94) 11/11/17 14:55 MCH 27 pg (28-32) L 11/11/17 14:55 MCHC 32 % (32-34) 11/11/17 14:55 RDW 15.0 % (13.2-15.2) 11/11/17 14:55 Plt Count 126 K/mm3 (140-440) L 11/11/17 14:55 Lymph % (Auto) 32.1 % (13.4-35.0) 11/10/17 20:00 [place] % (Auto) 13.9 % (0.0-7.3) H 11/10/17 20:00 Eos % (Auto) 4.6 % (0.0-4.3) H 11/10/17 20:00 Baso % (Auto) 1.8 % (0.0-1.8) 11/10/17 20:00 Lymph # 1.0 K/mm3 (1.2-5.4) L 11/10/17 20:00 [place] # 0.4 K/mm3 (0.0-0.8) 11/10/17 20:00 Eos # 0.1 K/mm3 (0.0-0.4) 11/10/17 20:00 Baso # 0.1 K/mm3 (0.0-0.1) 11/10/17 20:00 Seg Neutrophils % 47.6 % (40.0-70.0) 11/10/17 20:00 Seg Neutrophils # 1.5 K/mm3 (1.8-7.7) L 11/10/17 20:00 PT 13.3 Sec. (12.2-14.9) 11/10/17 20:00 INR 0.96 (0.87-1.13) 11/10/17 20:00 APTT 29.0 Sec. (24.2-36.6) 11/10/17 20:00 D-Dimer 1827.51 ng/mlDDU (0-234) H 11/11/17 03:08 Sodium 138 mmol/L (137-145) 11/11/17 14:55 Potassium 5.1 mmol/L (3.6-5.0) H 11/11/17 14:55 Chloride 104.3 mmol/L (98-107) 11/11/17 14:55 Carbon Dioxide 19 mmol/L (22-30) L 11/11/17 14:55 Anion Gap 20 mmol/L 11/11/17 14:55 BUN 60 mg/dL (9-20) H 11/11/17 14:55 Creatinine 3.5 mg/dL (0.8-1.5) H 11/11/17 14:55 Estimated GFR 20 ml/min 11/11/17 14:55 BUN/Creatinine Ratio 17 % 11/11/17 14:55 Glucose 88 mg/dL (75-100) 11/11/17 14:55 Calcium 9.8 mg/dL (8.4-10.2) 11/11/17 14:55 Total Creatine Kinase 332 units/L (55-170) H 11/11/17 11:16 CK-MB (CK-2) 4.4 ng/mL (0.0-4.0) H 11/11/17 11:16 CK-MB (CK-2) Rel Index 1.3 (0-4) 11/11/17 11:16 Troponin T 0.071 ng/mL (0.00-0.029) H 11/11/17 11:16 NT-Pro-B Natriuret Pep 924.9 pg/mL (0-900) H 11/10/17 20:00 Triglycerides 56 mg/dL (2-149) 11/10/17 20:00 Cholesterol 144 mg/dL (50-199) 11/10/17 20:00 LDL Cholesterol Direct 79 mg/dL (50-130) 11/10/17 20:00 HDL Cholesterol 54 mg/dL (40-59) 11/10/17 20:00 Cholesterol/HDL Ratio 2.66 % 11/10/17 20:00 <MARIA TERESA RESTREPO - Last Filed: 11/12/17 06:19> Assessment and Plan Assessment and plan: I saw and evaluated the patient. I agree with the findings and the plan of care as documented in the Nurse Practitioner's~note, with the following corrections and additions. Patient with near syncope, acute on chronic CKD. Continue current management. Hospitalist Physical - Constitutional Vitals: Temp Pulse Resp BP Pulse Ox 98.2 F 57 L 20 166/75 100 11/12/17 04:53 11/12/17 05:10 11/12/17 04:53 11/12/17 04:53 11/12/17 04:53 Results - Labs CBC & Chem 7: 11/11/17 14:55 11/11/17 14:55 Labs: Laboratory Last Values WBC 2.6 K/mm3 (4.5-11.0) L 11/11/17 14:55 RBC 3.83 M/mm3 (3.65-5.03) 11/11/17 14:55 Hgb 10.4 gm/dl (11.8-15.2) L 11/11/17 14:55 Hct 32.3 % (35.5-45.6) L 11/11/17 14:55 MCV 84 fl (84-94) 11/11/17 14:55 MCH 27 pg (28-32) L 11/11/17 14:55 MCHC 32 % (32-34) 11/11/17 14:55 RDW 15.0 % (13.2-15.2) 11/11/17 14:55 Plt Count 126 K/mm3 (140-440) L 11/11/17 14:55 Lymph % (Auto) 32.1 % (13.4-35.0) 11/10/17 20:00 [place] % (Auto) 13.9 % (0.0-7.3) H 11/10/17 20:00 Eos % (Auto) 4.6 % (0.0-4.3) H 11/10/17 20:00 Baso % (Auto) 1.8 % (0.0-1.8) 11/10/17 20:00 Lymph # 1.0 K/mm3 (1.2-5.4) L 11/10/17 20:00 [place] # 0.4 K/mm3 (0.0-0.8) 11/10/17 20:00 Eos # 0.1 K/mm3 (0.0-0.4) 11/10/17 20:00 Baso # 0.1 K/mm3 (0.0-0.1) 11/10/17 20:00 Seg Neutrophils % 47.6 % (40.0-70.0) 11/10/17 20:00 Seg Neutrophils # 1.5 K/mm3 (1.8-7.7) L 11/10/17 20:00 PT 13.3 Sec. (12.2-14.9) 11/10/17 20:00 INR 0.96 (0.87-1.13) 11/10/17 20:00 APTT 29.0 Sec. (24.2-36.6) 11/10/17 20:00 D-Dimer 1827.51 ng/mlDDU (0-234) H 11/11/17 03:08 Sodium 138 mmol/L (137-145) 11/11/17 14:55 Potassium 5.1 mmol/L (3.6-5.0) H 11/11/17 14:55 Chloride 104.3 mmol/L (98-107) 11/11/17 14:55 Carbon Dioxide 19 mmol/L (22-30) L 11/11/17 14:55 Anion Gap 20 mmol/L 11/11/17 14:55 BUN 60 mg/dL (9-20) H 11/11/17 14:55 Creatinine 3.5 mg/dL (0.8-1.5) H 11/11/17 14:55 Estimated GFR 20 ml/min 11/11/17 14:55 BUN/Creatinine Ratio 17 % 11/11/17 14:55 Glucose 88 mg/dL (75-100) 11/11/17 14:55 Calcium 9.8 mg/dL (8.4-10.2) 11/11/17 14:55 Total Creatine Kinase 332 units/L (55-170) H 11/11/17 11:16 CK-MB (CK-2) 4.4 ng/mL (0.0-4.0) H 11/11/17 11:16 CK-MB (CK-2) Rel Index 1.3 (0-4) 11/11/17 11:16 Troponin T 0.071 ng/mL (0.00-0.029) H 11/11/17 11:16 NT-Pro-B Natriuret Pep 924.9 pg/mL (0-900) H 11/10/17 20:00 Triglycerides 56 mg/dL (2-149) 11/10/17 20:00 Cholesterol 144 mg/dL (50-199) 11/10/17 20:00 LDL Cholesterol Direct 79 mg/dL (50-130) 11/10/17 20:00 HDL Cholesterol 54 mg/dL (40-59) 11/10/17 20:00 Cholesterol/HDL Ratio 2.66 % 11/10/17 20:00
[2017-11-11] MEDS: NACL 0.45% 1000 ML 1,000 ML with SODIUM BICARBONATE 75 MEQ IV SCH (18:14)
[2017-11-11] MEDS: Renal Caps PO SCH (18:14)
[2017-11-11] MEDS ORDERED: NON-FORMULARY (Lovastatin [Lovastatin] 40 MG) PO SCH (22:00)
[2017-11-11] MEDS: PRAVACHOL PO SCH (22:03)
[2017-11-12 07:15] LABS: Basophils % (Auto) 0.5 % (0.0-1.8); Eosinophils # (Auto) 0.2 K/mm3 (0.0-0.4); Eosinophils % (Auto) 7.7 % (0.0-4.3); Hematocrit 32.8 % (35.5-45.6); Hemoglobin 10.6 gm/dl (11.8-15.2); Lymphocytes # (Auto) 0.9 K/mm3 (1.2-5.4); Lymphocytes % (Auto) 32.2 % (13.4-35.0); Mean Corpuscular HGB Conc 32 % (32-34); Mean Corpuscular Hemoglobin 27 pg (28-32); Mean Corpuscular Volume 84 fl (84-94); Monocytes # (Auto) 0.4 K/mm3 (0.0-0.8); Monocytes % (Auto) 13.4 % (0.0-7.3); Platelet Count 128 K/mm3 (140-440); Red Blood Count 3.91 M/mm3 (3.65-5.03)
[2017-11-12 07:27] LABS: Calcium 9.6 mg/dL (8.4-10.2)
--- NOTE | 2017-11-12 09:11 | Progress Note ---
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 His renal function is improving. Continue IV hydration * Urine studies still pending * Acidosis is also improving. Continue IV fluid with sodium bicarbonate * daily lytes * avoid nephrotoxins * no indication for park police at this time * renal diet * Renal ultrasound consistent with CKD . No hydronephrosis Subjective Date of service: 11/12/17 Interval history: Patient is comfortable today. Denies any shortness of breath. No nausea or vomiting. Objective - Vital Signs Vital signs: Vital Signs - 12hr 11/11/17 11/11/17 11/11/17 22:00 22:03 22:04 Temperature 97.2 F L Pulse Rate 64 61 Respiratory 20 Rate Blood Pressure 155/72 155/72 O2 Sat by Pulse 97 98 97 Oximetry 11/11/17 11/12/17 11/12/17 22:08 00:28 04:53 Temperature 97.3 F L 98.2 F Pulse Rate 71 59 L Respiratory 20 20 Rate Blood Pressure 155/72 171/97 166/75 O2 Sat by Pulse 100 100 Oximetry 11/12/17 11/12/17 05:10 08:42 Temperature Pulse Rate 57 L Respiratory Rate Blood Pressure O2 Sat by Pulse 98 Oximetry - General Appearance General appearance: well-developed, well-nourished, appears stated age EENT: PERRL, mucous membranes moist Neck: no JVD, no thyromegaly, no carotid bruit, supple Respiratory: Present: Clear to Ascultation Cardiology: regular, normal heart rate, S1S2, no murmurs Gastrointestinal: normal, normoactive bowel sounds Integumentary: no rash, other (no edema) - Lab 11/12/17 06:25 11/12/17 06:25 Most recent lab results Calcium 9.6 mg/dL (8.4-10.2) 11/12/17 06:25
[2017-11-12] MEDS: HALFPRIN EC PO SCH (10:52)
[2017-11-12] MEDS: KEPPRA PO SCH ×2 (10:53→22:10)
[2017-11-12] MEDS: ARICEPT PO SCH (10:53)
[2017-11-12] MEDS: LOPRESSOR PO SCH ×2 (10:53→22:10)
[2017-11-12] MEDS: LOVENOX SUB-Q SCH (10:54)
[2017-11-12] MEDS: PEPCID PO SCH ×2 (10:55→22:10)
[2017-11-12] MEDS: NORVASC PO SCH (10:55)
[2017-11-12] MEDS: ROCALTROL PO SCH (10:56)
[2017-11-12] MEDS: Renal Caps PO SCH (10:56)
[2017-11-12] MEDS: PLAVIX PO SCH (10:56)
[2017-11-12] MEDS: SODIUM BICARBONATE PO SCH ×2 (10:57→22:10)
--- NOTE | 2017-11-12 12:25 | Progress Note ---
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 Cont present cardiac regimen. Renal indices are improving. Cont tele. Assessment and plan reviewed with pt and pt's at bedside. The patient has been seen in conjunction with Dr. Glover who agrees with the assessment and plan of care. Subjective Date of service: 11/12/17 Principal diagnosis: near syncope Interval history: pt resting comfortably, with no current complaints. Paced rhythm on telemetry. Objective Last Vital Signs Temp 98.5 F 11/12/17 08:33 Pulse 75 11/12/17 10:55 Resp 18 11/12/17 08:33 BP 129/70 11/12/17 10:55 Pulse Ox 98 11/12/17 08:42 - Physical Examination General: No Apparent Distress HEENT: Positive: PERRL, Normocephaly, Mucus Membranes Moist Neck: Positive: neck supple, trachea midline Cardiac: Positive: Reg Rate and Rhythm, S1/S2 Lungs: Positive: clear to auscultation Neuro: Positive: Grossly Intact Abdomen: Positive: Soft. Negative: Tender Skin: Positive: Clear. Negative: Rash, Wound Musculoskeletal: No Fluid Collection, No Pain, Normal Range of Motion Extremities: Absent: edema - Labs and Meds Cardiac Enzymes 11/11/17 Range/Units 11:16 CK-MB (CK-2) 4.4 H (0.0-4.0) ng/mL CBC 11/11/17 11/12/17 Range/Units 14:55 06:25 WBC 2.6 L 2.8 L (4.5-11.0) K/mm3 RBC 3.83 3.91 (3.65-5.03) M/mm3 Hgb 10.4 L 10.6 L (11.8-15.2) gm/dl Hct 32.3 L 32.8 L (35.5-45.6) % Plt Count 126 L 128 L (140-440) K/mm3 Lymph # 0.9 L (1.2-5.4) K/mm3 [place] # 0.4 (0.0-0.8) K/mm3 Eos # 0.2 (0.0-0.4) K/mm3 Baso # 0.0 (0.0-0.1) K/mm3 Comprehensive Metabolic Panel 11/11/17 11/12/17 Range/Units 14:55 06:25 Sodium 138 140 (137-145) mmol/L Potassium 5.1 H 4.8 (3.6-5.0) mmol/L Chloride 104.3 106.7 (98-107) mmol/L Carbon Dioxide 19 L 18 L (22-30) mmol/L BUN 60 H 53 H (9-20) mg/dL Creatinine 3.5 H 3.2 H (0.8-1.5) mg/dL Glucose 88 80 (75-100) mg/dL Calcium 9.8 9.6 (8.4-10.2) mg/dL - Imaging and Cardiology EKG: report reviewed, image reviewed Echo: report reviewed (09/05/2017 showed EF 50-55%, mild LVH, mod AV sclerosis, mild MR, mild dilatation of the ascending aorta. ) - Telemetry EKG Rhythm: Paced Pacemaker: ventricular pacing w/capt
--- NOTE | 2017-11-12 14:58 | Progress Note ---
Assessment and Plan Assessment and plan: 82-year-old man with a history of hypertension, seizure, coronary artery disease , chronic kidney disease, dementia state he was walking from the kitchen when he felt dizzy and fell to the floor. There was no loss of consciousness Acute on chronic renal failure due to dehydration Self inflicted, patient doesn't drink enough water at home Renal US showed Echogenic kidneys consistent with nonspecific renal parenchymal disease. Bilateral simple appearing renal cysts. No obstructive uropathy. No significant change since 09/07/17. Nephrology following, gentle hydration for now Elevated D dimer VQ scan shows Low probability for pulmonary embolus Near syncope check orthostatics Hypertension Controlled on current regimen, continue Seizure Continue antiseizure medication Coronary artery disease Continue statin therapy Dementia supportive care, Continue Aricept Hyperkalemia Low potassium diet DVT prophylaxis Lovenox History Interval history: Patient seen and examined with at bedside. He denies CP SOB, [place]. Labs and nursing notes reviewed. Hospitalist Physical - Constitutional Vitals: Temp Pulse Resp BP Pulse Ox 98.4 F 76 18 134/70 99 11/12/17 12:34 11/12/17 12:34 11/12/17 12:34 11/12/17 12:34 11/12/17 12:34 General appearance: Present: no acute distress, well-nourished - EENT Eyes: Present: PERRL, EOM intact ENT: hearing intact, clear oral mucosa - Neck Neck: Present: supple, normal ROM - Respiratory Respiratory effort: normal Respiratory: bilateral: CTA - Cardiovascular Rhythm: regular Heart Sounds: Present: S1 & S2 - Extremities Extremities: no ischemia, No edema - Abdominal General gastrointestinal: soft, non-tender, non-distended - Integumentary Integumentary: Present: clear, warm, dry - Psychiatric Psychiatric: appropriate mood/affect, intact judgment & insight, cooperative - Neurologic Neurologic: CNII-XII intact, moves all extremities - Allied Health Allied health notes reviewed: nursing Results - Labs CBC & Chem 7: 11/12/17 06:25 11/12/17 06:25 Labs: Laboratory Last Values WBC 2.8 K/mm3 (4.5-11.0) L 11/12/17 06:25 RBC 3.91 M/mm3 (3.65-5.03) 11/12/17 06:25 Hgb 10.6 gm/dl (11.8-15.2) L 11/12/17 06:25 Hct 32.8 % (35.5-45.6) L 11/12/17 06:25 MCV 84 fl (84-94) 11/12/17 06:25 MCH 27 pg (28-32) L 11/12/17 06:25 MCHC 32 % (32-34) 11/12/17 06:25 RDW 15.0 % (13.2-15.2) 11/12/17 06:25 Plt Count 128 K/mm3 (140-440) L 11/12/17 06:25 Lymph % (Auto) 32.2 % (13.4-35.0) 11/12/17 06:25 [place] % (Auto) 13.4 % (0.0-7.3) H 11/12/17 06:25 Eos % (Auto) 7.7 % (0.0-4.3) H 11/12/17 06:25 Baso % (Auto) 0.5 % (0.0-1.8) 11/12/17 06:25 Lymph # 0.9 K/mm3 (1.2-5.4) L 11/12/17 06:25 [place] # 0.4 K/mm3 (0.0-0.8) 11/12/17 06:25 Eos # 0.2 K/mm3 (0.0-0.4) 11/12/17 06:25 Baso # 0.0 K/mm3 (0.0-0.1) 11/12/17 06:25 Seg Neutrophils % 46.2 % (40.0-70.0) 11/12/17 06:25 Seg Neutrophils # 1.3 K/mm3 (1.8-7.7) L 11/12/17 06:25 PT 13.3 Sec. (12.2-14.9) 11/10/17 20:00 INR 0.96 (0.87-1.13) 11/10/17 20:00 APTT 29.0 Sec. (24.2-36.6) 11/10/17 20:00 D-Dimer 1827.51 ng/mlDDU (0-234) H 11/11/17 03:08 Sodium 140 mmol/L (137-145) 11/12/17 06:25 Potassium 4.8 mmol/L (3.6-5.0) 11/12/17 06:25 Chloride 106.7 mmol/L (98-107) 11/12/17 06:25 Carbon Dioxide 18 mmol/L (22-30) L 11/12/17 06:25 Anion Gap 20 mmol/L 11/12/17 06:25 BUN 53 mg/dL (9-20) H 11/12/17 06:25 Creatinine 3.2 mg/dL (0.8-1.5) H 11/12/17 06:25 Estimated GFR 23 ml/min 11/12/17 06:25 BUN/Creatinine Ratio 17 % 11/12/17 06:25 Glucose 80 mg/dL (75-100) 11/12/17 06:25 Calcium 9.6 mg/dL (8.4-10.2) 11/12/17 06:25 Total Creatine Kinase 332 units/L (55-170) H 11/11/17 11:16 CK-MB (CK-2) 4.4 ng/mL (0.0-4.0) H 11/11/17 11:16 CK-MB (CK-2) Rel Index 1.3 (0-4) 11/11/17 11:16 Troponin T 0.071 ng/mL (0.00-0.029) H 11/11/17 11:16 NT-Pro-B Natriuret Pep 924.9 pg/mL (0-900) H 11/10/17 20:00 Triglycerides 56 mg/dL (2-149) 11/10/17 20:00 Cholesterol 144 mg/dL (50-199) 11/10/17 20:00 LDL Cholesterol Direct 79 mg/dL (50-130) 11/10/17 20:00 HDL Cholesterol 54 mg/dL (40-59) 11/10/17 20:00 Cholesterol/HDL Ratio 2.66 % 11/10/17 20:00
[2017-11-12] MEDS: NACL 0.45% 1000 ML 1,000 ML with SODIUM BICARBONATE 75 MEQ IV SCH (20:02)
[2017-11-12] MEDS: PRAVACHOL PO SCH (22:10)
[2017-11-12 22:37] LABS: Bilirubin,Urine NEG (Negative); Blood,Urine NEG (Negative); Color,Urine Straw (Yellow); Mucus,Urine FEW /HPF; Urobilinogen,Urine < 2.0 mg/dL (<2.0)
[2017-11-12 23:12] LABS: Creatinine,Urine < 4.2 mg/dL (0.1-20.0)
[2017-11-13] MEDS: NACL 0.45% 1000 ML 1,000 ML with SODIUM BICARBONATE 75 MEQ IV SCH ×2 (05:49→22:56)
[2017-11-13] MEDS: HALFPRIN EC PO SCH (09:31)
[2017-11-13] MEDS: ROCALTROL PO SCH (09:31)
[2017-11-13] MEDS: ARICEPT PO SCH (09:31)
[2017-11-13] MEDS: PEPCID PO SCH ×2 (09:31→21:34)
[2017-11-13] MEDS: SODIUM BICARBONATE PO SCH ×2 (09:31→21:34)
[2017-11-13] MEDS: PLAVIX PO SCH (09:31)
[2017-11-13] MEDS: LOVENOX SUB-Q SCH (09:31)
[2017-11-13] MEDS: Renal Caps PO SCH (09:32)
[2017-11-13] MEDS: LOPRESSOR PO SCH ×2 (09:32→21:33)
[2017-11-13] MEDS: KEPPRA PO SCH ×2 (09:33→21:33)
[2017-11-13] MEDS: NORVASC PO SCH (09:33)
--- NOTE | 2017-11-13 10:56 | Progress Note ---
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 Cont present cardiac regimen. Renal indices are improving. Nothing further to add from cardiac perspective at this time. Will follow on as needed basis. The patient has been seen in conjunction with Dr. Glover who agrees with the assessment and plan of care. Subjective Date of service: 11/13/17 Principal diagnosis: near syncope Interval history: pt resting comfortably, with no current complaints. Paced rhythm on telemetry. Objective Last Vital Signs Temp 97.7 F 11/13/17 07:02 Pulse 66 11/13/17 09:32 Resp 20 11/13/17 07:02 BP 147/71 11/13/17 09:32 Pulse Ox 89 11/13/17 07:12 - Physical Examination General: No Apparent Distress HEENT: Positive: PERRL, Normocephaly, Mucus Membranes Moist Neck: Positive: neck supple, trachea midline Cardiac: Positive: Reg Rate and Rhythm, S1/S2 Lungs: Positive: clear to auscultation Neuro: Positive: Grossly Intact Abdomen: Positive: Soft. Negative: Tender Skin: Positive: Clear. Negative: Rash, Wound Musculoskeletal: No Fluid Collection, No Pain, Normal Range of Motion Extremities: Absent: edema - Labs and Meds Comprehensive Metabolic Panel 11/12/17 Range/Units 10:13 Sodium TNR Creatinine TNR - Imaging and Cardiology EKG: report reviewed, image reviewed Echo: report reviewed (09/05/2017 showed EF 50-55%, mild LVH, mod AV sclerosis, mild MR, mild dilatation of the ascending aorta. ) Pacemaker: ventricular pacing w/capt
--- NOTE | 2017-11-13 13:39 | Progress Note ---
Assessment and Plan Impression: * SERENE on ckd 4 --SCr 2.19 in office in August 2017 --Renal ultrasound consistent with CKD . 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 Encourage po hydration * Urine studies still pending * Daily lytes * Avoid nephrotoxins * Renal diet Subjective Date of service: 11/13/17 Principal diagnosis: near syncope Interval history: Patient denies chest pain, SOB. Denies dizziness. Appetite is good. Objective - Vital Signs Vital signs: Vital Signs - 12hr 11/13/17 11/13/17 11/13/17 03:41 05:22 07:02 Temperature 979 F H 97.7 F Pulse Rate 62 62 57 L Respiratory 18 20 Rate Blood Pressure 147/71 150/63 Blood Pressure 147/71 [Right] O2 Sat by Pulse 100 99 98 Oximetry 11/13/17 11/13/17 07:12 09:32 Temperature Pulse Rate 50 L 66 Respiratory Rate Blood Pressure 147/71 Blood Pressure [Right] O2 Sat by Pulse 89 Oximetry - General Appearance General appearance: well-developed, well-nourished EENT: ATNC Respiratory: Present: Clear to Ascultation Cardiology: regular, S1S2 Gastrointestinal: normal, no tenderness, no distended Integumentary: no rash, warm and dry Neurologic: no focal deficit Musculoskeletal: other (no edema) Psychiatric: cooperative - Lab 11/12/17 06:25 11/12/17 10:13 Most recent lab results Calcium 9.6 mg/dL (8.4-10.2) 11/12/17 06:25 Urine Creatinine < 4.2 mg/dL (0.1-20.0) 11/11/17 22:11 Urine Sodium 10 mmol/L 11/11/17 22:11
[2017-11-13 15:23] LABS: Calcium 9.4 mg/dL (8.4-10.2)
--- NOTE | 2017-11-13 15:31 | Progress Note ---
Assessment and Plan Assessment and plan: 82-year-old man with a history of hypertension, seizure, coronary artery disease , chronic kidney disease, dementia state he was walking from the kitchen when he felt dizzy and fell to the floor. There was no loss of consciousness Acute on chronic renal failure due to dehydration Self inflicted, patient doesn't drink enough water at home Renal US showed Echogenic kidneys consistent with nonspecific renal parenchymal disease. Bilateral simple appearing renal cysts. No obstructive uropathy. No significant change since 09/07/17. Nephrology following, gentle hydration for now, renal function is improving Elevated D dimer VQ scan shows Low probability for pulmonary embolus Near syncope check orthostatics Hypertension Controlled on current regimen, continue Seizure Continue antiseizure medication Coronary artery disease Continue statin therapy Dementia supportive care, Continue Aricept Hyperkalemia Low potassium diet, discontinued spironolactone Debility PT ordered DVT prophylaxis Lovenox History Interval history: Patient seen and examined with at bedside. He denies CP SOB, NV. Labs and nursing notes reviewed. Hospitalist Physical - Constitutional Vitals: Temp Pulse Resp BP Pulse Ox 97.7 F 56 L 20 147/71 89 11/13/17 07:02 11/13/17 15:08 11/13/17 07:02 11/13/17 09:32 11/13/17 07:12 General appearance: Present: no acute distress, well-nourished - EENT Eyes: Present: PERRL, EOM intact ENT: hearing intact, clear oral mucosa - Neck Neck: Present: supple, normal ROM - Respiratory Respiratory effort: normal Respiratory: bilateral: CTA - Cardiovascular Rhythm: regular Heart Sounds: Present: S1 & S2 - Extremities Extremities: no ischemia, No edema - Abdominal General gastrointestinal: soft, non-tender, non-distended - Integumentary Integumentary: Present: clear, warm, dry - Psychiatric Psychiatric: appropriate mood/affect, intact judgment & insight, cooperative - Neurologic Neurologic: CNII-XII intact, moves all extremities - Allied Health Allied health notes reviewed: nursing Results - Labs CBC & Chem 7: 11/12/17 06:25 11/13/17 14:45 Labs: Laboratory Last Values WBC 2.8 K/mm3 (4.5-11.0) L 11/12/17 06:25 RBC 3.91 M/mm3 (3.65-5.03) 11/12/17 06:25 Hgb 10.6 gm/dl (11.8-15.2) L 11/12/17 06:25 Hct 32.8 % (35.5-45.6) L 11/12/17 06:25 MCV 84 fl (84-94) 11/12/17 06:25 MCH 27 pg (28-32) L 11/12/17 06:25 MCHC 32 % (32-34) 11/12/17 06:25 RDW 15.0 % (13.2-15.2) 11/12/17 06:25 Plt Count 128 K/mm3 (140-440) L 11/12/17 06:25 Lymph % (Auto) 32.2 % (13.4-35.0) 11/12/17 06:25 Meagher % (Auto) 13.4 % (0.0-7.3) H 11/12/17 06:25 Eos % (Auto) 7.7 % (0.0-4.3) H 11/12/17 06:25 Baso % (Auto) 0.5 % (0.0-1.8) 11/12/17 06:25 Lymph # 0.9 K/mm3 (1.2-5.4) L 11/12/17 06:25 Meagher # 0.4 K/mm3 (0.0-0.8) 11/12/17 06:25 Eos # 0.2 K/mm3 (0.0-0.4) 11/12/17 06:25 Baso # 0.0 K/mm3 (0.0-0.1) 11/12/17 06:25 Seg Neutrophils % 46.2 % (40.0-70.0) 11/12/17 06:25 Seg Neutrophils # 1.3 K/mm3 (1.8-7.7) L 11/12/17 06:25 PT 13.3 Sec. (12.2-14.9) 11/10/17 20:00 INR 0.96 (0.87-1.13) 11/10/17 20:00 APTT 29.0 Sec. (24.2-36.6) 11/10/17 20:00 D-Dimer 1827.51 ng/mlDDU (0-234) H 03/05/18 03:08 Sodium 134 mmol/L (137-145) L 11/13/17 14:45 Potassium 4.8 mmol/L (3.6-5.0) 11/12/17 06:25 Chloride 99.1 mmol/L (98-107) 11/13/17 14:45 Carbon Dioxide 24 mmol/L (22-30) 11/13/17 14:45 Anion Gap 18 mmol/L 11/13/17 14:45 BUN 43 mg/dL (9-20) H 11/13/17 14:45 Creatinine 3.0 mg/dL (0.8-1.5) H 11/13/17 14:45 Estimated GFR 24 ml/min 11/13/17 14:45 BUN/Creatinine Ratio 14 % 11/13/17 14:45 Glucose 82 mg/dL (75-100) 11/13/17 14:45 Calcium 9.4 mg/dL (8.4-10.2) 11/13/17 14:45 Total Creatine Kinase 332 units/L (55-170) H 11/11/17 11:16 CK-MB (CK-2) 4.4 ng/mL (0.0-4.0) H 11/11/17 11:16 CK-MB (CK-2) Rel Index 1.3 (0-4) 11/11/17 11:16 Troponin T 0.071 ng/mL (0.00-0.029) H 11/11/17 11:16 NT-Pro-B Natriuret Pep 924.9 pg/mL (0-900) H 11/10/17 20:00 Triglycerides 56 mg/dL (2-149) 11/10/17 20:00 Cholesterol 144 mg/dL (50-199) 11/10/17 20:00 LDL Cholesterol Direct 79 mg/dL (50-130) 11/10/17 20:00 HDL Cholesterol 54 mg/dL (40-59) 11/10/17 20:00 Cholesterol/HDL Ratio 2.66 % 11/10/17 20:00 Urine Color Straw (Yellow) 11/11/17 22:11 Urine Turbidity Clear (Clear) 11/11/17 22:11 Urine pH 6.0 (5.0-7.0) 11/11/17 22:11 Ur Specific Forney 1.006 (1.003-1.030) 11/11/17 22:11 Urine Protein 30 mg/dl mg/dL (Negative) 11/11/17 22:11 Urine Glucose (UA) Neg mg/dL (Negative) 11/11/17 22:11 Urine Ketones Neg mg/dL (Negative) 11/11/17 22:11 Urine Blood Neg (Negative) 11/11/17 22:11 Urine Nitrite Neg (Negative) 11/11/17 22:11 Urine Bilirubin Neg (Negative) 11/11/17 22:11 Urine Urobilinogen < 2.0 mg/dL (<2.0) 11/11/17 22:11 Ur Leukocyte Esterase Neg (Negative) 11/11/17 22:11 Urine WBC (Auto) 1.0 /HPF (0.0-6.0) 11/11/17 22:11 Urine RBC (Auto) 1.0 /HPF (0.0-6.0) 11/11/17 22:11 U Epithel Cells (Auto) < 1.0 /HPF (0-13.0) 11/11/17 22:11 Urine Mucus Few /HPF 11/11/17 22:11 Urine Eosinophils None seen (None Seen) 11/11/17 22:11 Urine Creatinine < 4.2 mg/dL (0.1-20.0) 11/11/17 22:11 Urine Sodium 10 mmol/L 11/11/17 22:11 Fraction Sodium Excret 0.0 11/11/17 22:11
--- NOTE | 2017-11-13 16:19 | Query-Kidney Disease ---
Nirmal Lockwood____Ashly Date:___11/13/17 Agribusiness Professor/CDS:___[place] Phone#:____[phone] Exercise your independent professional judgment when responding to query. Questions asked do not imply a particular answer is desired or expected. We greatly appreciate your clarification on this issue. Clinical Documentation States: 82 year old male was a admitted on 11/10/17 The progress note (Donell) states " 82-year-old man with a history of hypertension, seizure, coronary artery disease, chronic kidney disease, dementia state he was walking from the kitchen when he felt dizzy and fell to the floor. Acute on chronic renal failure due to dehydration Self inflicted, patient doesn't drink enough water at home Renal US showed Echogenic kidneys consistent with nonspecific renal parenchymal disease. Bilateral simple appearing renal cysts. No obstructive uropathy. Nephrology following, gentle hydration for now, renal function is improving " Clinical Findings Show: 11/10/17 11/13/17 Creatinine: 4.0 3.0 BUN/Creatinine Ratio: 17 14 Please Clarify if you mean: Acute Renal Failure with or due to: [ ] Tubular Necrosis [ ] Cortical Necrosis [ ] Shock Kidney [ x] Vasomotor Nephropathy [ ] Lower Tubular Nephrosis [ ] Renal Tubular Stasis [ ] Tubular Nephrosis [ ] Medullary Necrosis [ ] Acute Renal Failure (unspecified) [ ] Other: [ ] Comment/Explanation: Chronic Kidney Disease (Please chevak applicable stage) 3 Stages Description GFR [ ] CKD Stage 1 90 mL/min or more [ ] CKD Stage 2 Mild decrease in Kidney function 60 to 89 mL/min [ x] CKD Stage 3 Moderate decrease in kidney function 30-59 [ ] CKD Stage 4 Severe decrease in kidney function 15-29 [ ] CKD Stage 5 Kidney failure; requiring dialysis or transplantation <15 [ ] ESRD Patient requiring dialysis for > 3 months or kidney transplant irrespective of level of GFR; Applicable for 1 year after kidney transplant [ ] Other: [ ] Comment/Explanation: Present on Admission: [ x] Yes (Y) [ ] Clinically undeterminable (W) [ ] No (N) Please also document response in your Progress Notes and/or Discharge Summary and indicate if the condition was present on admission MTDD
[2017-11-13] MEDS: PRAVACHOL PO SCH (21:34)
[2017-11-14 07:32] LABS: Calcium 9.9 mg/dL (8.4-10.2)
[2017-11-14 08:22] VITALS: BP 156/81
[2017-11-14] MEDS: PEPCID PO SCH (10:16)
[2017-11-14] MEDS: NORVASC PO SCH (10:16)
[2017-11-14] MEDS: PLAVIX PO SCH (10:16)
[2017-11-14] MEDS: ROCALTROL PO SCH (10:16)
[2017-11-14] MEDS: LOPRESSOR PO SCH (10:16)
[2017-11-14] MEDS: SODIUM BICARBONATE PO SCH (10:17)
[2017-11-14] MEDS: LOVENOX SUB-Q SCH (10:17)
[2017-11-14] MEDS: Renal Caps PO SCH (10:17)
[2017-11-14] MEDS: ARICEPT PO SCH (10:17)
[2017-11-14] MEDS: HALFPRIN EC PO SCH (10:17)
[2017-11-14] MEDS: KEPPRA PO SCH (10:17)
--- NOTE | 2017-11-14 11:07 | Discharge Summary ---
Providers - Providers Date of Admission: 11/11/17 00:00 Attending physician: CHELITA TREJO MD 11/11/17 03:50 Consult to Physician [CONS] Routine Consulting Provider: TRACE DEJESUS Reason For Exam: near syncope Notified:: secretary administrative assistant pl call 11/11/17 08:16 Consult to Physician [CONS] Routine Consulting Provider: JACK COREA Reason For Exam: Acute on CKD Place consult to:: Office Notified:: yes Phone number called:: [phone] Was contact made?: Yes If yes, spoke with:: Hannah Time called:: 09:42 11/13/17 11:16 Physical Therapy Evaluation and Treat [CONS] Urgent Comment: Reason For Exam: debility Primary care physician: MARIA TERESA PÉREZ Hospitalization Condition: Stable Disposition: DC/TX-06 HOME UNDER HOME [facility] Exam - Constitutional Vitals: Temp Pulse Resp BP Pulse Ox 97.7 F 68 18 156/81 100 11/14/17 08:05 11/14/17 08:05 11/14/17 08:05 11/14/17 08:05 11/14/17 08:05 Plan Follow up with: MARIA TERESA PÉREZ MD [Primary Care Provider] - 3-5 Days
== END 2017-11-14 13:00 | disposition home health service (06) | DRG 683 ==
LOC: ED 19:30 → 4A 11-11
PROVIDERS: ADMIT Internal Medicine; ATTEND Internal Medicine
DX: N17.0 Acute kidney failure with tubular necrosis (principal); E87.2 Acidosis; E86.0 Dehydration; R55 Syncope and collapse; I25.10 Atherosclerotic heart disease of native coronary artery without angina pectoris; I12.9 Hypertensive chronic kidney disease with stage 1 through stage 4 chronic kidney disease, or unspecified chronic kidney disease; E87.5 Hyperkalemia; F03.90 Unspecified dementia, unspecified severity, without behavioral disturbance, psychotic disturbance, mood disturbance, and anxiety; D47.2 Monoclonal gammopathy; D63.1 Anemia in chronic kidney disease; I49.9 Cardiac arrhythmia, unspecified; E78.5 Hyperlipidemia, unspecified; R56.9 Unspecified convulsions; Z95.1 Presence of aortocoronary bypass graft; Z95.0 Presence of cardiac pacemaker; Z79.82 Long term (current) use of aspirin; Z79.899 Other long term (current) drug therapy; N18.4 Chronic kidney disease, stage 4 (severe)
CPT/HCPCS: 36415; 71045; 76770; 78582; 80048; 80061; 81001; 82550; 82553; 82570; 83880; 84300; 84484; 85025; 85027; 85379; 85610; 85730; 89050; 93005; 93010; 99285; A9270-GY; A9540; A9558; G8978-GP; G8979-GP; G8980-GP; J1650; J7040

== ENCOUNTER 2017-11-22 11:03 | Inpatient (IN) | payer MEDICARE ==
--- NOTE | 2017-11-22 12:17 | XRay Report ---
AP CHEST: HISTORY: Syncope CABG changes 2-lead pacemaker device are unchanged since 11/11/17. The lungs are clear. Heart size is within normal limits. Normal pulmonary vascularity. IMPRESSION: No acute cardiopulmonary process identified.
[2017-11-22 12:25] LABS: Basophils % (Auto) 0.7 % (0.0-1.8); Eosinophils # (Auto) 0.6 K/mm3 (0.0-0.4); Eosinophils % (Auto) 12.7 % (0.0-4.3); Hematocrit 31.1 % (35.5-45.6); Hemoglobin 10.1 gm/dl (11.8-15.2); Lymphocytes # (Auto) 1.6 K/mm3 (1.2-5.4); Lymphocytes % (Auto) 36.2 % (13.4-35.0); Mean Corpuscular HGB Conc 32 % (32-34); Mean Corpuscular Hemoglobin 27 pg (28-32); Mean Corpuscular Volume 85 fl (84-94); Monocytes # (Auto) 0.5 K/mm3 (0.0-0.8); Platelet Count 109 K/mm3 (140-440); Red Blood Count 3.68 M/mm3 (3.65-5.03); Red Cell Distribution Width 14.7 % (13.2-15.2)
[2017-11-22 12:33] LABS: INR 1.05 (0.87-1.13); Partial Thromboplastin Time 25.7 Sec. (24.2-36.6)
[2017-11-22 12:41] LABS: Calcium 9.3 mg/dL (8.4-10.2)
[2017-11-22 12:42] LABS: Alanine Aminotransferase 30 units/L (7-56); Albumin 3.5 g/dL (3.9-5); Bilirubin,Direct < 0.2 mg/dL (0-0.2)
[2017-11-22 12:59] LABS: Chol/HDL Ratio 2.37 %
--- NOTE | 2017-11-22 15:00 | Emergency Department Report ---
ED General Adult HPI - General Chief complaint: Fall Stated complaint: GENERAL WEAKNESS Time Seen by Provider: 11/22/17 11:18 Source: EMS Mode of arrival: Stretcher Limitations: Physical Limitation - History of Present Illness Initial comments: Patient is very poor historian. He certainly seems to have a significant degree of Alzheimer's disease. His provides most of the history which appears to be reliable. She states that she was in another room when she heard a thought. She came into the bedroom and found her on the floor on his right side. He was awake and responded to her. He did not remember falling. He has had this problem before. 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 He had a pacemaker placed by Dr. Racquel Martinez ([facility]). He has had prior syncopal episodes. He is never been found to have a seizure. During his last hospitalization, he was found to have a significantly elevated d-dimer. He is in chronic renal insufficiency. He had a nuclear medicine study that was low probability for pulmonary embolism at that time. He does not complain of cough or shortness of breath. His thinks that his right lateral chest is sore from the fall. She denies any antecedent symptoms to her knowledge. The patient has been at his baseline. -: Sudden Severity scale (0 -10): 0 - Related Data Home Medications Medication Instructions Recorded Confirmed Last Taken Amlodipine Besylate 10 mg PO DAILY 10/11/16 11/11/17 09/04/17 Aspirin EC [Aspirin Enteric Coated 81 mg PO DAILY 10/11/16 11/11/17 09/04/17 TAB] Clopidogrel Bisulfate [Clopidogrel] 75 mg PO DAILY 10/11/16 11/11/17 09/04/17 Famotidine 20 mg PO BID 10/11/16 11/11/17 09/04/17 Lovastatin 40 mg PO HS 10/11/16 11/11/17 09/04/17 Metoprolol Tartrate 50 mg PO BID 10/11/16 11/11/17 09/04/17 Vit D3/Folic Acid/B2/B6/B12 1 each PO DAILY 10/11/16 11/11/17 09/04/17 [Folgard Tablet] levETIRAcetam [Levetiracetam] 750 mg PO BID 10/11/16 11/11/17 09/04/17 Calcitriol [Rocaltrol] 0.25 mcg PO DAILY 09/05/17 11/11/17 09/04/17 Donepezil [Aricept] 10 mg PO QDAY 09/05/17 11/11/17 09/04/17 Sodium Bicarbonate 10 mg PO BID 11/11/17 11/11/17 Unknown Allergies Allergy/AdvReac Type Severity Reaction Status Date / Time No Known Allergies Allergy Verified 11/22/17 11:25 ED Review of Systems ROS: Stated complaint: GENERAL WEAKNESS Other details as noted in HPI Constitutional: denies: chills, fever Eyes: denies: eye pain, eye discharge, vision change ENT: denies: ear pain, throat pain Respiratory: denies: cough, shortness of breath, wheezing Cardiovascular: chest pain (right lateral chest soreness after fall). denies: palpitations Endocrine: no symptoms reported Gastrointestinal: denies: abdominal pain, nausea, diarrhea Genitourinary: denies: urgency, dysuria Musculoskeletal: denies: back pain, joint swelling, arthralgia Skin: denies: rash, lesions Neurological: denies: headache, weakness, paresthesias Psychiatric: denies: anxiety, depression Hematological/Lymphatic: denies: easy bleeding, easy bruising ED Past Medical Hx - Past Medical History Previous Medical History?: Yes Hx Hypertension: Yes Hx Heart Attack/AMI: No Hx Congestive Heart Failure: No Hx Seizures: Yes (as a child under 1 yr old) Hx HIV: No - Surgical History Hx Open Heart Surgery: Yes (CABG) Hx Pacemaker: Yes (new implant 10/11/16) - Social History Smoking Status: Never Smoker Substance Use Type: None - Medications Home Medications: Home Medications Medication Instructions Recorded Confirmed Last Taken Type Amlodipine Besylate 10 mg PO DAILY 10/11/16 11/11/17 09/04/17 History Aspirin EC [Aspirin Enteric Coated 81 mg PO DAILY 10/11/16 11/11/17 09/04/17 History TAB] Clopidogrel Bisulfate [Clopidogrel] 75 mg PO DAILY 10/11/16 11/11/17 09/04/17 History Famotidine 20 mg PO BID 10/11/16 11/11/17 09/04/17 History Lovastatin 40 mg PO HS 10/11/16 11/11/17 09/04/17 History Metoprolol Tartrate 50 mg PO BID 10/11/16 11/11/17 09/04/17 History Vit D3/Folic Acid/B2/B6/B12 1 each PO DAILY 10/11/16 11/11/17 09/04/17 History [Folgard Tablet] levETIRAcetam [Levetiracetam] 750 mg PO BID 10/11/16 11/11/17 09/04/17 History Calcitriol [Rocaltrol] 0.25 mcg PO DAILY 09/05/17 11/11/17 09/04/17 History Donepezil [Aricept] 10 mg PO QDAY 09/05/17 11/11/17 09/04/17 History Sodium Bicarbonate 10 mg PO BID 11/11/17 11/11/17 Unknown History ED Physical Exam - General Limitations: Physical Limitation General appearance: alert, in no apparent distress - Head Head exam: Present: atraumatic, normocephalic - Eye Eye exam: Present: normal appearance, EOMI. Absent: scleral icterus - ENT ENT exam: Present: mucous membranes moist - Neck Neck exam: Present: normal inspection. Absent: tenderness, meningismus - Respiratory Respiratory exam: Present: normal lung sounds bilaterally. Absent: respiratory distress - Cardiovascular Cardiovascular Exam: Present: regular rate, normal rhythm. Absent: systolic murmur, diastolic murmur, rubs, gallop - GI/Abdominal GI/Abdominal exam: Present: soft, normal bowel sounds. Absent: distended, tenderness, guarding, rebound, rigid - Rectal Rectal exam: Present: deferred - Extremities Exam Extremities exam: Present: normal inspection, normal capillary refill. Absent: calf tenderness - Back Exam Back exam: Present: normal inspection. Absent: CVA tenderness (R), CVA tenderness (L), muscle spasm, paraspinal tenderness, vertebral tenderness - Neurological Exam Neurological exam: Present: alert, oriented X3, CN II-XII intact. Absent: motor sensory deficit - Psychiatric Psychiatric exam: Present: normal affect, normal mood - Skin Skin exam: Present: warm, dry, intact, normal color. Absent: rash ED Course Vital Signs 11/22/17 11/22/17 11/22/17 11:09 11:15 11:20 Temperature 97.4 F L Pulse Rate 60 61 65 Respiratory 17 13 16 Rate Blood Pressure 154/70 154/70 O2 Sat by Pulse 98 Oximetry 11/22/17 11/22/17 11/22/17 11:30 11:45 12:01 Temperature Pulse Rate 63 60 57 L Respiratory 14 17 15 Rate Blood Pressure 152/69 152/69 152/69 O2 Sat by Pulse 97 99 98 Oximetry 11/22/17 11/22/17 11/22/17 12:15 12:31 12:45 Temperature Pulse Rate 56 L 58 L 68 Respiratory 15 15 16 Rate Blood Pressure 152/69 171/78 171/78 O2 Sat by Pulse 99 98 100 Oximetry 11/22/17 11/22/17 11/22/17 13:00 13:15 13:30 Temperature Pulse Rate 57 L 66 55 L Respiratory 16 16 18 Rate Blood Pressure 155/67 171/78 153/71 O2 Sat by Pulse 100 99 100 Oximetry 11/22/17 11/22/17 13:45 14:00 Temperature Pulse Rate 57 L 56 L Respiratory 13 17 Rate Blood Pressure 155/67 161/71 O2 Sat by Pulse 98 100 Oximetry - Reevaluation(s) Reevaluation #1: I have obtained a pacemaker interrogation. It was normal per electroneurodiagnostic technician. I discussed the patient's elevated d-dimer with Dr. Barajas. He did not want to proceed with a repeat VQ scan. I will leave further workup to his discretion and this case. The patient was admitted in stable condition. His pulse oximetry last measured at 100%. His work of breathing is normal. His renal function is worse than usual. His platelet count is slightly low. The troponin was slightly elevated. Otherwise, there were no other specific findings. A CT head is now pending. Further care per Dr. Barajas. 11/22/17 15:07 ED Medical Decision Making - Lab Data Result diagrams: 11/22/17 11:21 11/22/17 11:21 Laboratory Results - last 24 hr 11/22/17 11/22/17 11/22/17 11:21 11:21 11:21 WBC 4.4 L RBC 3.68 Hgb 10.1 L Hct 31.1 L MCV 85 MCH 27 L MCHC 32 RDW 14.7 Plt Count 109 L Lymph % (Auto) 36.2 H Crisp % (Auto) 12.0 H Eos % (Auto) 12.7 H Baso % (Auto) 0.7 Lymph # 1.6 Crisp # 0.5 Eos # 0.6 H Baso # 0.0 Seg Neutrophils % 38.4 L Seg Neutrophils # 1.7 L PT 14.3 INR 1.05 APTT 25.7 D-Dimer 2318.80 H Sodium 140 Potassium 4.5 Chloride 106.0 Carbon Dioxide 18 L Anion Gap 21 BUN 48 H Creatinine 3.7 H Estimated GFR 19 BUN/Creatinine Ratio 13 Glucose 114 H Calcium 9.3 Magnesium 2.10 Total Bilirubin Direct Bilirubin AST ALT Alkaline Phosphatase Total Creatine Kinase 400 H CK-MB (CK-2) 3.0 CK-MB (CK-2) Rel Index 0.7 Troponin T 0.067 H NT-Pro-B Natriuret Pep Total Protein Albumin Albumin/Globulin Ratio Triglycerides 83 Cholesterol 126 LDL Cholesterol Direct 69 HDL Cholesterol 53 Cholesterol/HDL Ratio 2.37 Blood Type Antibody Screen 11/22/17 11/22/17 11:21 11:21 WBC RBC Hgb Hct MCV MCH MCHC RDW Plt Count Lymph % (Auto) Crisp % (Auto) Eos % (Auto) Baso % (Auto) Lymph # Crisp # Eos # Baso # Seg Neutrophils % Seg Neutrophils # PT INR APTT D-Dimer Sodium Potassium Chloride Carbon Dioxide Anion Gap BUN Creatinine Estimated GFR BUN/Creatinine Ratio Glucose Calcium Magnesium Total Bilirubin 0.30 Direct Bilirubin < 0.2 AST 26 ALT 30 Alkaline Phosphatase 49 Total Creatine Kinase CK-MB (CK-2) CK-MB (CK-2) Rel Index Troponin T NT-Pro-B Natriuret Pep 1521 H Total Protein 6.9 Albumin 3.5 L Albumin/Globulin Ratio 1.0 Triglycerides Cholesterol LDL Cholesterol Direct HDL Cholesterol Cholesterol/HDL Ratio Blood Type O POSITIVE Antibody Screen Negative - EKG Data -: EKG Interpreted by Me - EKG Data Interpretation: other (paced rhythm at 60 with complete capture) - Radiology Data Radiology results: report reviewed (no acute cardiopulmonary process) Critical care attestation.: If time is entered above; I have spent that time in minutes in the direct care of this critically ill patient, excluding procedure time. ED Disposition Clinical Impression: Elevated d-dimer, Chronic renal insufficiency, stage IV (severe), Thrombocytopenia Syncope Qualifiers: Syncope type: unspecified Qualified Code(s): R55 - Syncope and collapse Disposition: OP ADMIT IP TO THIS HOSP Is pt being admited?: Yes Does the pt Need Aspirin: No (hold pending CT result) Condition: Stable Instructions: Syncope (ED) Referrals: PRIMARY CARE, [Primary Care Provider] - 3-5 Days Time of Disposition: 15:08
[2017-11-22] MEDS ORDERED: ATIVAN ONE (15:39)
[2017-11-22] MEDS ORDERED: ATIVAN IV ONE (15:44)
[2017-11-22] MEDS ORDERED: KEPPRA 1,000 MG/NS 0.75% 100ML 1,000 MG/100 ML BAG IV ONE (15:44)
[2017-11-22] MEDS ORDERED: TYLENOL PO PRN (16:17)
[2017-11-22] MEDS ORDERED: SODIUM CHLORIDE FLUSH SYRINGE 10 ML IV PRN (16:17)
[2017-11-22] MEDS ORDERED: AMBIEN PO PRN (16:17)
[2017-11-22] MEDS ORDERED: ZOFRAN IV PRN (16:17)
[2017-11-22] MEDS ORDERED: PERCOCET 5/325 PO PRN (16:17)
--- NOTE | 2017-11-22 16:26 | History and Physical Report ---
History of Present Illness Date of examination: 11/22/17 Date of admission: 11/22/17 Chief complaint: CC Passed out couple of hours ago History of present illness: History of Present Illness: Patient is very poor historian. He certainly seems to have a significant degree of Alzheimer's disease. His provides most of the history which appears to be reliable. She states that she was in another room when she heard a thought. She came into the bedroom and found her on the floor on his right side. He was awake and responded to her. He did not remember falling. He has had this problem before. 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 He had a pacemaker placed by Dr. Racquel Martinez ([facility]). He has had prior syncopal episodes. He is never been found to have a seizure. During his last hospitalization, he was found to have a significantly elevated d-dimer. He is in chronic renal insufficiency. He had a nuclear medicine study that was low probability for pulmonary embolism at that time. He does not complain of cough or shortness of breath. His thinks that his right lateral chest is sore from the fall. She denies any antecedent symptoms to her knowledge. The patient has been at his baseline. Pacemaker interrogation was done and it was normal Past Medical History Previous Medical History?: Yes Hx Hypertension: Yes Hx Seizures: Yes (as a child under 1 yr old) CAD Surgical History Hx Open Heart Surgery: Yes (CABG) Hx Pacemaker: Yes (new implant 10/11/16) - Social History Smoking Status: Never Smoker Substance Use Type: None - Medications Home Medications: Home Medications Medication Instructions Recorded Confirmed Last Taken Type Amlodipine Besylate 10 mg PO DAILY 10/11/16 11/11/17 09/04/17 History Aspirin EC [Aspirin Enteric Coated 81 mg PO DAILY 10/11/16 11/11/17 09/04/17 History TAB] Clopidogrel Bisulfate [Clopidogrel] 75 mg PO DAILY 10/11/16 11/11/17 09/04/17 History Famotidine 20 mg PO BID 10/11/16 11/11/17 09/04/17 History Lovastatin 40 mg PO HS 10/11/16 11/11/17 09/04/17 History Metoprolol Tartrate 50 mg PO BID 10/11/16 11/11/17 09/04/17 History Vit D3/Folic Acid/B2/B6/B12 1 each PO DAILY 10/11/16 11/11/17 09/04/17 History [Folgard Tablet] levETIRAcetam [Levetiracetam] 750 mg PO BID 10/11/16 11/11/17 09/04/17 History Calcitriol [Rocaltrol] 0.25 mcg PO DAILY 09/05/17 11/11/17 09/04/17 History Donepezil [Aricept] 10 mg PO QDAY 09/05/17 11/11/17 09/04/17 History Sodium Bicarbonate 10 mg PO BID 11/11/17 11/11/17 Unknown History Review of Systems ROS: Stated complaint: GENERAL WEAKNESS Other details as noted in HPI Constitutional: denies: chills, fever Eyes: denies: eye pain, eye discharge, vision change ENT: denies: ear pain, throat pain Respiratory: denies: cough, shortness of breath, wheezing Cardiovascular: chest pain (right lateral chest soreness after fall). denies: palpitations Endocrine: no symptoms reported Gastrointestinal: denies: abdominal pain, nausea, diarrhea Genitourinary: denies: urgency, dysuria Musculoskeletal: denies: back pain, joint swelling, arthralgia Skin: denies: rash, lesions Neurological: denies: headache, weakness, paresthesias Psychiatric: denies: anxiety, depression Hematological/Lymphatic: denies: easy bleeding, easy bruising Medications and Allergies Allergies Allergy/AdvReac Type Severity Reaction Status Date / Time No Known Allergies Allergy Verified 11/22/17 11:25 Home Medications Medication Instructions Recorded Confirmed Last Taken Type Amlodipine Besylate 10 mg PO DAILY 10/11/16 11/22/17 09/04/17 History Aspirin EC [Aspirin Enteric Coated 81 mg PO DAILY 10/11/16 11/22/17 09/04/17 History TAB] Clopidogrel Bisulfate [Clopidogrel] 75 mg PO DAILY 10/11/16 11/22/17 09/04/17 History Famotidine 20 mg PO BID 10/11/16 11/22/17 09/04/17 History Lovastatin 40 mg PO HS 10/11/16 11/22/17 09/04/17 History Metoprolol Tartrate 50 mg PO BID 10/11/16 11/22/17 09/04/17 History Vit D3/Folic Acid/B2/B6/B12 1 each PO DAILY 10/11/16 11/22/17 09/04/17 History [Folgard Tablet] levETIRAcetam [Levetiracetam] 750 mg PO BID 10/11/16 11/22/17 09/04/17 History Calcitriol [Rocaltrol] 0.25 mcg PO DAILY 09/05/17 11/22/17 09/04/17 History Donepezil [Aricept] 10 mg PO QDAY 09/05/17 11/22/17 09/04/17 History Sodium Bicarbonate 10 mg PO BID 11/11/17 11/22/17 Unknown History Active Meds: Active Medications Acetaminophen (Tylenol) 650 mg PO Q4H PRN PRN Reason: Pain MILD(1-3)/Fever >100.5/[place] Amlodipine Besylate (Norvasc) 10 mg PO DAILY [facility] Aspirin (Halfprin Ec) 81 mg PO DAILY [facility] Calcitriol (Rocaltrol) 0.25 mcg PO DAILY [facility] Clopidogrel Bisulfate (Plavix) 75 mg PO DAILY [facility] Donepezil HCl (Aricept) 10 mg PO QDAY [facility] Famotidine (Pepcid) 20 mg PO BID [facility] Sodium Chloride (Nacl 0.9% 1000 Ml) 1,000 mls @ 100 mls/hr IV DIRECT [facility] Metoprolol Tartrate (Lopressor) 50 mg PO BID [facility] Miscellaneous Medication (Levetiracetam [Levetiracetam]) 750 mg PO BID [facility] Miscellaneous Medication (Lovastatin [Lovastatin]) 40 mg PO HS [facility] Miscellaneous Medication (Sodium Bicarbonate) 10 mg PO BID [facility] Ondansetron HCl (Zofran) 4 mg IV Q8H PRN PRN Reason: Nausea And Vomiting Oxycodone/Acetaminophen (Percocet 5/325) 1 tab PO Q6H PRN PRN Reason: Pain, Moderate (4-6) Sodium Chloride (Sodium Chloride Flush Syringe 10 Ml) 10 ml IV BID [facility] Sodium Chloride (Sodium Chloride Flush Syringe 10 Ml) 10 ml IV PRN PRN PRN Reason: LINE FLUSH Zolpidem Tartrate (Ambien) 5 mg PO QHS PRN PRN Reason: Insomnia Exam - Constitutional Vitals: Temp Pulse Resp BP Pulse Ox 97.4 F L 81 18 169/81 100 11/22/17 11:20 11/22/17 15:30 11/22/17 15:30 11/22/17 15:30 11/22/17 15:30 General appearance: Present: no acute distress, well-nourished - EENT Eyes: Present: PERRL ENT: hearing intact, clear oral mucosa - Neck Neck: Present: supple, normal ROM - Respiratory Respiratory effort: normal Respiratory: bilateral: CTA - Cardiovascular Heart rate: 80 Rhythm: regular Heart Sounds: Present: S1 & S2. Absent: rub, click - Extremities Extremities: no ischemia, pulses intact, pulses symmetrical, No edema Peripheral Pulses: within normal limits - Abdominal General gastrointestinal: Present: soft, non-tender, non-distended, normal bowel sounds Male genitourinary: Present: normal - Rectal Rectal Exam: deferred - Integumentary Integumentary: Present: clear, warm, dry - Musculoskeletal Musculoskeletal: gait normal, strength equal bilaterally - Psychiatric Psychiatric: appropriate mood/affect, other (Dementia) - Neurologic Neurologic: CNII-XII intact, moves all extremities - Allied Health Allied health notes reviewed: nursing, case management Results - Labs CBC & Chem 7: 11/22/17 11:21 11/22/17 11:21 Labs: Laboratory Last Values WBC 4.4 K/mm3 (4.5-11.0) L 11/22/17 11:21 RBC 3.68 M/mm3 (3.65-5.03) 11/22/17 11:21 Hgb 10.1 gm/dl (11.8-15.2) L 11/22/17 11:21 Hct 31.1 % (35.5-45.6) L 11/22/17 11:21 MCV 85 fl (84-94) 11/22/17 11:21 MCH 27 pg (28-32) L 11/22/17 11:21 MCHC 32 % (32-34) 11/22/17 11:21 RDW 14.7 % (13.2-15.2) 11/22/17 11:21 Plt Count 109 K/mm3 (140-440) L 11/22/17 11:21 Lymph % (Auto) 36.2 % (13.4-35.0) H 11/22/17 11:21 [place] % (Auto) 12.0 % (0.0-7.3) H 11/22/17 11:21 Eos % (Auto) 12.7 % (0.0-4.3) H 11/22/17 11:21 Baso % (Auto) 0.7 % (0.0-1.8) 11/22/17 11:21 Lymph # 1.6 K/mm3 (1.2-5.4) 11/22/17 11:21 [place] # 0.5 K/mm3 (0.0-0.8) 11/22/17 11:21 Eos # 0.6 K/mm3 (0.0-0.4) H 11/22/17 11:21 Baso # 0.0 K/mm3 (0.0-0.1) 11/22/17 11:21 Seg Neutrophils % 38.4 % (40.0-70.0) L 11/22/17 11:21 Seg Neutrophils # 1.7 K/mm3 (1.8-7.7) L 11/22/17 11:21 PT 14.3 Sec. (12.2-14.9) 11/22/17 11:21 INR 1.05 (0.87-1.13) 11/22/17 11:21 APTT 25.7 Sec. (24.2-36.6) 11/22/17 11:21 D-Dimer 2318.80 ng/mlDDU (0-234) H 11/22/17 11:21 Sodium 140 mmol/L (137-145) 11/22/17 11:21 Potassium 4.5 mmol/L (3.6-5.0) 11/22/17 11:21 Chloride 106.0 mmol/L (98-107) 11/22/17 11:21 Carbon Dioxide 18 mmol/L (22-30) L 11/22/17 11:21 Anion Gap 21 mmol/L 11/22/17 11:21 BUN 48 mg/dL (9-20) H 11/22/17 11:21 Creatinine 3.7 mg/dL (0.8-1.5) H 11/22/17 11:21 Estimated GFR 19 ml/min 11/22/17 11:21 BUN/Creatinine Ratio 13 % 11/22/17 11:21 Glucose 114 mg/dL (75-100) H 11/22/17 11:21 Calcium 9.3 mg/dL (8.4-10.2) 11/22/17 11:21 Magnesium 2.10 mg/dL (1.7-2.3) 11/22/17 11:21 Total Bilirubin 0.30 mg/dL (0.1-1.2) 11/22/17 11:21 Direct Bilirubin < 0.2 mg/dL (0-0.2) 11/22/17 11:21 AST 26 units/L (5-40) 11/22/17 11:21 ALT 30 units/L (7-56) 11/22/17 11:21 Alkaline Phosphatase 49 units/L (35-129) 11/22/17 11:21 Total Creatine Kinase 400 units/L (55-170) H 11/22/17 11:21 CK-MB (CK-2) 3.0 ng/mL (0.0-4.0) 11/22/17 11:21 CK-MB (CK-2) Rel Index 0.7 (0-4) 11/22/17 11:21 Troponin T 0.067 ng/mL (0.00-0.029) H 11/22/17 11:21 NT-Pro-B Natriuret Pep 1521 pg/mL (0-900) H 11/22/17 11:21 Total Protein 6.9 g/dL (6.3-8.2) 11/22/17 11:21 Albumin 3.5 g/dL (3.9-5) L 11/22/17 11:21 Albumin/Globulin Ratio 1.0 % 11/22/17 11:21 Triglycerides 83 mg/dL (2-149) 11/22/17 11:21 Cholesterol 126 mg/dL (50-199) 11/22/17 11:21 LDL Cholesterol Direct 69 mg/dL (50-130) 11/22/17 11:21 HDL Cholesterol 53 mg/dL (40-59) 11/22/17 11:21 Cholesterol/HDL Ratio 2.37 % 11/22/17 11:21 Blood Type O POSITIVE 11/22/17 11:21 Antibody Screen Negative 11/22/17 11:21 Short CBC 11/22/17 Range/Units 11:21 WBC 4.4 L (4.5-11.0) K/mm3 Hgb 10.1 L (11.8-15.2) gm/dl Hct 31.1 L (35.5-45.6) % Plt Count 109 L (140-440) K/mm3 BMP 11/22/17 11:21 Sodium 140 Potassium 4.5 Chloride 106.0 Carbon Dioxide 18 L BUN 48 H Creatinine 3.7 H Glucose 114 H Calcium 9.3 Cardiac Enzymes 11/22/17 Range/Units 11:21 Total Creatine Kinase 400 H (55-170) units/L CK-MB (CK-2) 3.0 (0.0-4.0) ng/mL Troponin T 0.067 H (0.00-0.029) ng/mL Liver Function 11/22/17 Range/Units 11:21 Total Bilirubin 0.30 (0.1-1.2) mg/dL Direct Bilirubin < 0.2 (0-0.2) mg/dL AST 26 (5-40) units/L ALT 30 (7-56) units/L Alkaline Phosphatase 49 (35-129) units/L Albumin 3.5 L (3.9-5) g/dL - Imaging and Cardiology EKG: report reviewed Chest x-ray: report reviewed (NAF) Assessment and Plan Advance Directives: Yes (Full code) VTE prophylaxis?: Chemical Plan of care discussed with patient/family: Yes - Patient Problems (1) Syncope Current Visit: Yes Status: Acute Qualifiers: Syncope type: unspecified Qualified Code(s): R55 - Syncope and collapse Plan to address problem: Syncope work up (2) Chronic renal insufficiency, stage IV (severe) Current Visit: Yes Status: Chronic Plan to address problem: Renal consulted (3) HTN (hypertension) Current Visit: No Status: Chronic Qualifiers: Hypertension type: essential hypertension Qualified Code(s): I10 - Essential (primary) hypertension Plan to address problem: Cont antihypertensives (4) Pacemaker Current Visit: No Status: Chronic Plan to address problem: Interrogation was normal Done in ED Talked with the [facility] Low rate (5) CAD (coronary artery disease) Current Visit: Yes Status: Chronic Qualifiers: Coronary Disease-Associated Artery/Lesion type: bypass graft [place] vs. transplanted heart: [place] heart Plan to address problem: On Plavix (6) HLD (hyperlipidemia) Current Visit: Yes Status: Acute (7) Hyperlipidemia Current Visit: No Status: Chronic Qualifiers: Hyperlipidemia type: mixed hyperlipidemia Qualified Code(s): E78.2 - Mixed hyperlipidemia Plan to address problem: On Statins (8) GERD (gastroesophageal reflux disease) Current Visit: Yes Status: Chronic Qualifiers: Esophagitis presence: without esophagitis Qualified Code(s): K21.9 - Gastro -esophageal reflux disease without esophagitis Plan to address problem: Cont ppi's (9) Hx of CABG Current Visit: No Status: Chronic (10) Symptomatic bradycardia Current Visit: No Status: Chronic Plan to address problem: Cardiology consult requested (11) Seizure disorder Current Visit: Yes Status: Chronic Plan to address problem: Cont Keppra (12) Dementia Current Visit: Yes Status: Chronic Qualifiers: Dementia type: vascular dementia Plan to address problem: Cont Aricept (13) DVT prophylaxis Current Visit: Yes Status: Acute Plan to address problem: ON Heparin
[2017-11-22] MEDS: NACL 0.9% 1000 ML 1,000 ML IV SCH (18:45)
[2017-11-22] MEDS: ROCALTROL PO SCH (18:45)
[2017-11-22] MEDS: HALFPRIN EC PO SCH (18:46)
[2017-11-22] MEDS: ARICEPT PO SCH (18:46)
[2017-11-22] MEDS: PLAVIX PO SCH (18:46)
[2017-11-22] MEDS: NORVASC PO SCH (18:46)
[2017-11-22] MEDS: SODIUM BICARBONATE PO SCH (21:39)
[2017-11-22] MEDS: PRAVACHOL PO SCH (21:39)
[2017-11-22] MEDS: PEPCID PO SCH (21:39)
[2017-11-22] MEDS: KEPPRA PO SCH (21:39)
[2017-11-22] MEDS: LOPRESSOR PO SCH (21:39)
[2017-11-22] MEDS: SODIUM CHLORIDE FLUSH SYRINGE 10 ML IV SCH (21:40)
[2017-11-22] MEDS ORDERED: SODIUM BICARBONATE 10 MG PO SCH (22:00)
[2017-11-22] MEDS ORDERED: LEVETIRACETAM 750 MG PO SCH (22:00)
[2017-11-22] MEDS ORDERED: NON-FORMULARY (Lovastatin [Lovastatin] 40 MG) PO SCH (22:00)
[2017-11-23 07:56] LABS: Basophils % (Auto) 0.5 % (0.0-1.8); Eosinophils # (Auto) 0.2 K/mm3 (0.0-0.4); Eosinophils % (Auto) 4.4 % (0.0-4.3); Hematocrit 35.1 % (35.5-45.6); Hemoglobin 10.9 gm/dl (11.8-15.2); Lymphocytes # (Auto) 0.9 K/mm3 (1.2-5.4); Lymphocytes % (Auto) 23.6 % (13.4-35.0); Mean Corpuscular HGB Conc 31 % (32-34); Mean Corpuscular Hemoglobin 27 pg (28-32); Mean Corpuscular Volume 87 fl (84-94); Monocytes # (Auto) 0.6 K/mm3 (0.0-0.8); Monocytes % (Auto) 14.2 % (0.0-7.3); Platelet Count 104 K/mm3 (140-440); Red Blood Count 4.02 M/mm3 (3.65-5.03); Red Cell Distribution Width 15.2 % (13.2-15.2)
[2017-11-23 08:03] LABS: Albumin 3.6 g/dL (3.9-5); Calcium 9.9 mg/dL (8.4-10.2)
[2017-11-23] MEDS ORDERED: LEXISCAN IV ONE ×2 (08:05→08:15)
--- NOTE | 2017-11-23 08:56 | Cat Scan Report ---
FINAL REPORT EXAM: CT HEAD/BRAIN WO CON HISTORY: syncope TECHNIQUE: CT imaging is acquired through the brain without contrast. Transaxial reformations are provided. PRIORS: 07/26/2016 FINDINGS: Ventricles and CSF spaces are proportionately enlarged, consistent with parenchymal atrophy. Scattered deep and subcortical white matter hypodense foci are confluent in some areas and are compatible with microvascular angiopathy. Soft tissue sellar expansion is similar to prior and measures approximately 13 x 18 millimeters on axial series 2, image 23. No acute intracranial hemorrhage or mass effect. No skull fracture. No significant abnormality within the imaged paranasal sinuses or mastoid air cells. IMPRESSION: No acute intracranial abnormality. 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 There are chronic sequela of atrophy and microvascular angiopathy.
--- NOTE | 2017-11-23 12:18 | Progress Note ---
Assessment and Plan Impression: * SERENE on ckd 4 --SCr 2.19 in office in August 2017 --Renal ultrasound consistent with CKD . No hydronephrosis * HTN * Hyperkalemia - resolved * Metabolic acidosis * Monoclonal gammaopathy * Anemia in CKD * CAD * Arrhythmia * Near Syncope Plan: * No indication for [employer] at this time * Continue IV hydration. Encourage po hydration * po bicarb to continue * has been found on floor at home on multiple occasions, likely needs SNF placement * Urine studies still pending * Daily lytes, follow up UA * Avoid nephrotoxins * Renal diet Subjective Date of service: 11/30/17 Principal diagnosis: serene on ckd 4 Interval history: resting in bed today, readmitted for syncope, fall Objective - Exam Narrative Exam: General appearance: chronically ill EENT: ATNC Respiratory: Present: Clear to Ascultation Cardiology: irregular, S1S2 Gastrointestinal: normal, no tenderness, no distended Integumentary:poor turgor Neurologic: no focal deficit Musculoskeletal: other (no edema) Psychiatric: cooperative - Vital Signs Vital signs: Vital Signs - 12hr 11/23/17 11/23/17 01:21 05:44 Temperature 98.6 F Pulse Rate 68 67 Respiratory 22 Rate Blood Pressure 158/86 O2 Sat by Pulse 100 Oximetry - Lab 11/23/17 07:23 11/23/17 07:23 Most recent lab results Calcium 9.9 mg/dL (8.4-10.2) 11/23/17 07:23 Magnesium 2.10 mg/dL (1.7-2.3) 11/22/17 11:21
--- NOTE | 2017-11-23 13:38 | Progress Note ---
Assessment and Plan Assessment and plan: Patient is a 82-year-old man with a history of hypertension, coronary artery disease, GERD, advanced dementia, seizure disorder, permanent pacemaker the heart block and CK B stage IV presents to emergency department with recurrent falls, discharged for 11/14/17 with similar presentation except this time patient had a seizure episode. Patient has remote history of childhood seizures 2D ECHO: Estimated EF 45-50%, abnormal left ventricular diastolic filling consistent with impaired relaxation, pacemaker wire right ventricle, pacemaker wire right atrium, moderate MR, mild TR CT head without contrast reported as no acute intracranial abnormality, stellar mass appears similar to prior, there are chronic sequela of atrophy and microvascular -Recurrent falls at home: Ordered PT/OT, possible placement discuss with at bedside -Recurrent seizures: Treated with Keppra, once neurologist is available we will get an EEG -Syncopal seizures: seizure precaution, aspiration and fall precaution- -Acute encephalopathy due to the above. History Interval history: Patient was seen and examined. Follow-up on current diagnosis. Overnight uneventful. Patient denies any chest pain, shortness breath, nausea/vomiting or severe headaches. Imaging, nursing note, chart, labs and old chart reviewed. Discussed with patient. Hospitalist Physical - Physical exam Narrative exam: GEN: thin frial NAD, AWAKE, ALERT, ORIENTATED x 3, but he says nonsensable things at time. HEENT: NCAT, EOMI, PERRL, OP Clear NECK: supple, no adenopathy, no thyromegaly, no JVD CVS/HEART: RRR, NORMAL S1S2, pulses present bilaterally CHEST/LUNGS: CTA B, Symmetrical chest expansion, good air entry bilaterally GI/Abdomen: soft, NTND, good bowel sounds, no guarding or rebound /Bladder: no suprapubic tenderness, no CVA or paraspinal tenderness EXT/Skin: no c/c/e, no obvious rash MSK: FROM x 4 Neuro: CN 2-12 grossly intact, no new focal deficits Psych: calm - Constitutional Vitals: Temp Pulse Resp BP Pulse Ox 97.9 F 67 18 120/83 100 11/23/17 12:37 11/23/17 05:44 11/23/17 12:37 11/23/17 12:37 11/23/17 05:44 General appearance: Present: no acute distress, well-nourished Results - Labs CBC & Chem 7: 11/23/17 07:23 11/23/17 07:23 Labs: Laboratory Last Values WBC 4.0 K/mm3 (4.5-11.0) L 11/23/17 07:23 RBC 4.02 M/mm3 (3.65-5.03) 11/23/17 07:23 Hgb 10.9 gm/dl (11.8-15.2) L 11/23/17 07:23 Hct 35.1 % (35.5-45.6) L 11/23/17 07:23 MCV 87 fl (84-94) 11/23/17 07:23 MCH 27 pg (28-32) L 11/23/17 07:23 MCHC 31 % (32-34) L 11/23/17 07:23 RDW 15.2 % (13.2-15.2) 11/23/17 07:23 Plt Count 104 K/mm3 (140-440) L 11/23/17 07:23 Lymph % (Auto) 23.6 % (13.4-35.0) 11/23/17 07:23 [place] % (Auto) 14.2 % (0.0-7.3) H 11/23/17 07:23 Eos % (Auto) 4.4 % (0.0-4.3) H 11/23/17 07:23 Baso % (Auto) 0.5 % (0.0-1.8) 11/23/17 07:23 Lymph # 0.9 K/mm3 (1.2-5.4) L 11/23/17 07:23 [place] # 0.6 K/mm3 (0.0-0.8) 11/23/17 07:23 Eos # 0.2 K/mm3 (0.0-0.4) 11/23/17 07:23 Baso # 0.0 K/mm3 (0.0-0.1) 11/23/17 07:23 Seg Neutrophils % 57.3 % (40.0-70.0) 11/23/17 07:23 Seg Neutrophils # 2.3 K/mm3 (1.8-7.7) 11/23/17 07:23 PT 14.3 Sec. (12.2-14.9) 11/22/17 11:21 INR 1.05 (0.87-1.13) 11/22/17 11:21 APTT 25.7 Sec. (24.2-36.6) 11/22/17 11:21 D-Dimer 2318.80 ng/mlDDU (0-234) H 11/22/17 11:21 Sodium 142 mmol/L (137-145) 11/23/17 07:23 Potassium 5.0 mmol/L (3.6-5.0) 11/23/17 07:23 Chloride 105.7 mmol/L (98-107) 11/23/17 07:23 Carbon Dioxide 20 mmol/L (22-30) L 11/23/17 07:23 Anion Gap 21 mmol/L 11/23/17 07:23 BUN 42 mg/dL (9-20) H 11/23/17 07:23 Creatinine 3.0 mg/dL (0.8-1.5) H 11/23/17 07:23 Estimated GFR 24 ml/min 11/23/17 07:23 BUN/Creatinine Ratio 14 % 11/23/17 07:23 Glucose 92 mg/dL (75-100) 11/23/17 07:23 Hemoglobin A1c 5.9 % (4-6) 11/22/17 16:20 Calcium 9.9 mg/dL (8.4-10.2) 11/23/17 07:23 Magnesium 2.10 mg/dL (1.7-2.3) 11/22/17 11:21 Total Bilirubin 0.40 mg/dL (0.1-1.2) 11/23/17 07:23 Direct Bilirubin < 0.2 mg/dL (0-0.2) 11/22/17 11:21 AST 28 units/L (5-40) 11/23/17 07:23 ALT 28 units/L (7-56) 11/23/17 07:23 Alkaline Phosphatase 50 units/L (35-129) 11/23/17 07:23 Total Creatine Kinase 400 units/L (55-170) H 11/22/17 11:21 CK-MB (CK-2) 3.0 ng/mL (0.0-4.0) 11/22/17 11:21 CK-MB (CK-2) Rel Index 0.7 (0-4) 11/22/17 11:21 Troponin T 0.067 ng/mL (0.00-0.029) H 11/22/17 11:21 NT-Pro-B Natriuret Pep 1521 pg/mL (0-900) H 11/22/17 11:21 Total Protein 7.2 g/dL (6.3-8.2) 11/23/17 07:23 Albumin 3.6 g/dL (3.9-5) L 11/23/17 07:23 Albumin/Globulin Ratio 1.0 % 11/23/17 07:23 Triglycerides 83 mg/dL (2-149) 11/22/17 11:21 Cholesterol 126 mg/dL (50-199) 11/22/17 11:21 LDL Cholesterol Direct 69 mg/dL (50-130) 11/22/17 11:21 HDL Cholesterol 53 mg/dL (40-59) 11/22/17 11:21 Cholesterol/HDL Ratio 2.37 % 11/22/17 11:21 Blood Type O POSITIVE 11/22/17 11:21 Antibody Screen Negative 11/22/17 11:21
--- NOTE | 2017-11-23 14:21 | Consultation ---
History of Present Illness History of present illness: Full note dictated. Dr. Anderson. Medications and Allergies Allergies Allergy/AdvReac Type Severity Reaction Status Date / Time No Known Allergies Allergy Verified 11/22/17 11:25 Home Medications Medication Instructions Recorded Confirmed Last Taken Type Amlodipine Besylate 10 mg PO DAILY 10/11/16 11/22/17 09/04/17 History Aspirin EC [Aspirin Enteric Coated 81 mg PO DAILY 10/11/16 11/22/17 09/04/17 History TAB] Clopidogrel Bisulfate [Clopidogrel] 75 mg PO DAILY 10/11/16 11/22/17 09/04/17 History Famotidine 20 mg PO BID 10/11/16 11/22/17 09/04/17 History Lovastatin 40 mg PO HS 10/11/16 11/22/17 09/04/17 History Metoprolol Tartrate 50 mg PO BID 10/11/16 11/22/17 09/04/17 History Vit D3/Folic Acid/B2/B6/B12 1 each PO DAILY 10/11/16 11/22/17 09/04/17 History [Folgard Tablet] levETIRAcetam [Levetiracetam] 750 mg PO BID 10/11/16 11/22/17 09/04/17 History Calcitriol [Rocaltrol] 0.25 mcg PO DAILY 09/05/17 11/22/17 09/04/17 History Donepezil [Aricept] 10 mg PO QDAY 09/05/17 11/22/17 09/04/17 History Sodium Bicarbonate 10 mg PO BID 11/11/17 11/22/17 Unknown History Active Meds: Active Medications Acetaminophen (Tylenol) 650 mg PO Q4H PRN PRN Reason: Pain MILD(1-3)/Fever >100.5/[place] Amlodipine Besylate (Norvasc) 10 mg PO DAILY [facility] Last Admin: 11/22/17 18:46 Dose: 10 mg Aspirin (Halfprin Ec) 81 mg PO DAILY [facility] Last Admin: 11/22/17 18:46 Dose: 81 mg Calcitriol (Rocaltrol) 0.25 mcg PO DAILY [facility] Last Admin: 11/22/17 18:45 Dose: 0.25 mcg Clopidogrel Bisulfate (Plavix) 75 mg PO DAILY [facility] Last Admin: 11/22/17 18:46 Dose: 75 mg Donepezil HCl (Aricept) 10 mg PO QDAY [facility] Last Admin: 11/22/17 18:46 Dose: 10 mg Famotidine (Pepcid) 20 mg PO BID [facility] Last Admin: 11/22/17 21:39 Dose: 20 mg Sodium Chloride (Nacl 0.9% 1000 Ml) 1,000 mls @ 100 mls/hr IV DIRECT [facility] Last Admin: 11/22/17 18:45 Dose: 100 mls/hr Levetiracetam (Keppra) 750 mg PO BID [facility] Last Admin: 11/22/17 21:39 Dose: 750 mg Metoprolol Tartrate (Lopressor) 50 mg PO BID [facility] Last Admin: 11/22/17 21:39 Dose: 50 mg Ondansetron HCl (Zofran) 4 mg IV Q8H PRN PRN Reason: Nausea And Vomiting Oxycodone/Acetaminophen (Percocet 5/325) 1 tab PO Q6H PRN PRN Reason: Pain, Moderate (4-6) Pravastatin Sodium (Pravachol) 40 mg PO QHS [facility] Last Admin: 11/22/17 21:39 Dose: 40 mg Sodium Bicarbonate (Sodium Bicarbonate) 650 mg PO BID [facility] Last Admin: 11/22/17 21:39 Dose: 650 mg Sodium Chloride (Sodium Chloride Flush Syringe 10 Ml) 10 ml IV BID [facility] Last Admin: 11/22/17 21:40 Dose: 10 ml Sodium Chloride (Sodium Chloride Flush Syringe 10 Ml) 10 ml IV PRN PRN PRN Reason: LINE FLUSH Zolpidem Tartrate (Ambien) 5 mg PO QHS PRN PRN Reason: Insomnia Physical Examination Vital Signs Pulse Resp 60 17 11/22/17 11:09 11/22/17 11:09 Results 11/23/17 07:23 11/23/17 07:23 Cardiac Enzymes 11/23/17 Range/Units 07:23 AST 28 (5-40) units/L CBC 11/23/17 Range/Units 07:23 WBC 4.0 L (4.5-11.0) K/mm3 RBC 4.02 (3.65-5.03) M/mm3 Hgb 10.9 L (11.8-15.2) gm/dl Hct 35.1 L (35.5-45.6) % Plt Count 104 L (140-440) K/mm3 Lymph # 0.9 L (1.2-5.4) K/mm3 [place] # 0.6 (0.0-0.8) K/mm3 Eos # 0.2 (0.0-0.4) K/mm3 Baso # 0.0 (0.0-0.1) K/mm3 Comprehensive Metabolic Panel 11/23/17 Range/Units 07:23 Sodium 142 (137-145) mmol/L Potassium 5.0 (3.6-5.0) mmol/L Chloride 105.7 (98-107) mmol/L Carbon Dioxide 20 L (22-30) mmol/L BUN 42 H (9-20) mg/dL Creatinine 3.0 H (0.8-1.5) mg/dL Glucose 92 (75-100) mg/dL Calcium 9.9 (8.4-10.2) mg/dL AST 28 (5-40) units/L ALT 28 (7-56) units/L Alkaline Phosphatase 50 (35-129) units/L Total Protein 7.2 (6.3-8.2) g/dL Albumin 3.6 L (3.9-5) g/dL
[2017-11-23] MEDS: NORVASC PO SCH (15:56)
[2017-11-23] MEDS: KEPPRA PO SCH ×2 (15:58→22:31)
[2017-11-23] MEDS: ROCALTROL PO SCH (15:58)
[2017-11-23] MEDS: PLAVIX PO SCH (15:58)
[2017-11-23] MEDS: HALFPRIN EC PO SCH (15:58)
[2017-11-23] MEDS: PEPCID PO SCH ×2 (15:58→22:33)
[2017-11-23] MEDS: SODIUM CHLORIDE FLUSH SYRINGE 10 ML IV SCH ×2 (15:59→22:35)
[2017-11-23] MEDS: ARICEPT PO SCH (15:59)
[2017-11-23] MEDS: SODIUM BICARBONATE PO SCH ×2 (15:59→22:34)
[2017-11-23] MEDS: LOPRESSOR PO SCH ×2 (15:59→22:32)
[2017-11-23] MEDS: PRAVACHOL PO SCH (22:34)
[2017-11-24] MEDS: LOPRESSOR PO SCH ×2 (11:38→22:02)
[2017-11-24] MEDS: KEPPRA PO SCH ×2 (11:38→22:02)
[2017-11-24] MEDS: NORVASC PO SCH (11:38)
[2017-11-24] MEDS: PLAVIX PO SCH (11:39)
[2017-11-24] MEDS: SODIUM BICARBONATE PO SCH ×2 (11:39→22:01)
[2017-11-24] MEDS: ARICEPT PO SCH (11:39)
[2017-11-24] MEDS: PEPCID PO SCH ×2 (11:39→22:02)
[2017-11-24] MEDS ORDERED: KIONEX PO ONE (11:40)
[2017-11-24] MEDS: ROCALTROL PO SCH (11:40)
[2017-11-24] MEDS: HALFPRIN EC PO SCH (11:40)
[2017-11-24] MEDS: SODIUM CHLORIDE FLUSH SYRINGE 10 ML IV SCH ×2 (11:40→22:03)
--- NOTE | 2017-11-24 11:43 | Progress Note ---
Assessment and Plan Impression: * SERENE on ckd 4 --SCr 2.19 in office in August 2017 --Renal ultrasound consistent with CKD . No hydronephrosis * HTN * Hyperkalemia - resolved * Metabolic acidosis * Monoclonal gammaopathy * Anemia in CKD * CAD * Arrhythmia * hyperkalemia * Near Syncope Plan: * No indication for [employer]S [employer] at this time * renal diet * treat k medically--kayexalate today * Continue IV hydration. Encourage po hydration * po bicarb to continue * has been found on floor at home on multiple occasions, likely needs SNF placement * Urine studies still pending * Daily lytes, follow up UA * Avoid nephrotoxins Subjective Date of service: 11/24/17 Principal diagnosis: serene on ckd 4 Interval history: resting in bed today, readmitted for syncope, fall Objective - Exam Narrative Exam: General appearance: chronically ill EENT: ATNC Respiratory: Present: Clear to Ascultation Cardiology: irregular, S1S2 Gastrointestinal: normal, no tenderness, no distended Integumentary:poor turgor Neurologic: no focal deficit Musculoskeletal: other (no edema) Psychiatric: cooperative - Vital Signs Vital signs: Vital Signs - 12hr 11/23/17 11/24/17 11/24/17 23:48 05:19 09:27 Temperature 98.0 F 98.1 F 98.3 F Pulse Rate 68 69 65 Respiratory 18 18 16 Rate Blood Pressure 162/90 156/84 132/77 O2 Sat by Pulse 98 99 97 Oximetry 11/24/17 11:38 Temperature Pulse Rate 65 Respiratory Rate Blood Pressure 132/77 O2 Sat by Pulse Oximetry - Lab 11/23/17 07:23 11/24/17 08:25 Most recent lab results Calcium 10.0 mg/dL (8.4-10.2) 11/24/17 08:25 Magnesium 2.10 mg/dL (1.7-2.3) 11/22/17 11:21
--- NOTE | 2017-11-24 13:21 | Progress Note ---
Assessment and Plan Assessment and plan: Patient is a 82-year-old man with a history of hypertension, coronary artery disease, GERD, advanced dementia, seizure disorder, permanent pacemaker the heart block and CK B stage IV presents to emergency department with recurrent falls, discharged for 11/14/17 with similar presentation except this time patient had a seizure episode. Patient has remote history of childhood seizures 2D ECHO: Estimated EF 45-50%, abnormal left ventricular diastolic filling consistent with impaired relaxation, pacemaker wire right ventricle, pacemaker wire right atrium, moderate MR, mild TR CT head without contrast reported as no acute intracranial abnormality, stellar mass appears similar to prior, there are chronic sequela of atrophy and microvascular -Recurrent falls at home: Ordered PT/OT, possible placement -Recurrent seizures: Treated with Keppra, once neurologist is available we will get an EEG -Syncopal seizures: seizure precaution, aspiration and fall precaution- -Acute encephalopathy due to the above. -DVT prophylaxis: asa and plavix -Hyperkalemia: renal is following, kayexalate ordered -Advance dementia: fall precaution Dispo: placement, once potassium improves and cleared by renal History Interval history: Patient was seen and examined. Follow-up on current diagnosis of renal failure. Overnight uneventful. Patient denies any chest pain, shortness breath , nausea/vomiting or severe headaches. Imaging, nursing note, chart, labs and old chart reviewed. Discussed with patient. Hospitalist Physical - Physical exam Narrative exam: GEN: thin frial NAD, AWAKE, ALERT, ORIENTATED x 3 HEENT: NCAT, EOMI, PERRL, OP Clear NECK: supple, no adenopathy, no thyromegaly, no JVD CVS/HEART: RRR, NORMAL S1S2, pulses present bilaterally CHEST/LUNGS: CTA B, Symmetrical chest expansion, good air entry bilaterally GI/Abdomen: soft, NTND, good bowel sounds, no guarding or rebound /Bladder: no suprapubic tenderness, no CVA or paraspinal tenderness EXT/Skin: no c/c/e, no obvious rash MSK: FROM x 4 Neuro: CN 2-12 grossly intact, no new focal deficits Psych: calm - Constitutional Vitals: Temp Pulse Resp BP Pulse Ox 98.1 F 69 16 117/70 99 11/24/17 12:12 11/24/17 12:12 11/24/17 12:12 11/24/17 12:12 11/24/17 12:12 General appearance: Present: no acute distress, well-nourished Results - Labs CBC & Chem 7: 11/23/17 07:23 11/24/17 08:25 Labs: Laboratory Last Values WBC 4.0 K/mm3 (4.5-11.0) L 11/23/17 07:23 RBC 4.02 M/mm3 (3.65-5.03) 11/23/17 07:23 Hgb 10.9 gm/dl (11.8-15.2) L 11/23/17 07:23 Hct 35.1 % (35.5-45.6) L 11/23/17 07:23 MCV 87 fl (84-94) 11/23/17 07:23 MCH 27 pg (28-32) L 11/23/17 07:23 MCHC 31 % (32-34) L 11/23/17 07:23 RDW 15.2 % (13.2-15.2) 11/23/17 07:23 Plt Count 104 K/mm3 (140-440) L 11/23/17 07:23 Lymph % (Auto) 23.6 % (13.4-35.0) 11/23/17 07:23 [place] % (Auto) 14.2 % (0.0-7.3) H 11/23/17 07:23 Eos % (Auto) 4.4 % (0.0-4.3) H 11/23/17 07:23 Baso % (Auto) 0.5 % (0.0-1.8) 11/23/17 07:23 Lymph # 0.9 K/mm3 (1.2-5.4) L 11/23/17 07:23 [place] # 0.6 K/mm3 (0.0-0.8) 11/23/17 07:23 Eos # 0.2 K/mm3 (0.0-0.4) 11/23/17 07:23 Baso # 0.0 K/mm3 (0.0-0.1) 11/23/17 07:23 Seg Neutrophils % 57.3 % (40.0-70.0) 11/23/17 07:23 Seg Neutrophils # 2.3 K/mm3 (1.8-7.7) 11/23/17 07:23 PT 14.3 Sec. (12.2-14.9) 11/22/17 11:21 INR 1.05 (0.87-1.13) 11/22/17 11:21 APTT 25.7 Sec. (24.2-36.6) 11/22/17 11:21 D-Dimer 2318.80 ng/mlDDU (0-234) H 11/22/17 11:21 Sodium 138 mmol/L (137-145) 11/24/17 08:25 Potassium 5.8 mmol/L (3.6-5.0) H 11/24/17 08:25 Chloride 101.7 mmol/L (98-107) 11/24/17 08:25 Carbon Dioxide 21 mmol/L (22-30) L 11/24/17 08:25 Anion Gap 21 mmol/L 11/24/17 08:25 BUN 38 mg/dL (9-20) H 11/24/17 08:25 Creatinine 3.0 mg/dL (0.8-1.5) H 11/24/17 08:25 Estimated GFR 24 ml/min 11/24/17 08:25 BUN/Creatinine Ratio 13 % 11/24/17 08:25 Glucose 119 mg/dL (75-100) H 11/24/17 08:25 Hemoglobin A1c 5.9 % (4-6) 11/22/17 16:20 Calcium 10.0 mg/dL (8.4-10.2) 11/24/17 08:25 Magnesium 2.10 mg/dL (1.7-2.3) 11/22/17 11:21 Total Bilirubin 0.40 mg/dL (0.1-1.2) 11/23/17 07:23 Direct Bilirubin < 0.2 mg/dL (0-0.2) 11/22/17 11:21 AST 28 units/L (5-40) 11/23/17 07:23 ALT 28 units/L (7-56) 11/23/17 07:23 Alkaline Phosphatase 50 units/L (35-129) 11/23/17 07:23 Total Creatine Kinase 400 units/L (55-170) H 11/22/17 11:21 CK-MB (CK-2) 3.0 ng/mL (0.0-4.0) 11/22/17 11:21 CK-MB (CK-2) Rel Index 0.7 (0-4) 11/22/17 11:21 Troponin T 0.067 ng/mL (0.00-0.029) H 11/22/17 11:21 NT-Pro-B Natriuret Pep 1521 pg/mL (0-900) H 11/22/17 11:21 Total Protein 7.2 g/dL (6.3-8.2) 11/23/17 07:23 Albumin 3.6 g/dL (3.9-5) L 11/23/17 07:23 Albumin/Globulin Ratio 1.0 % 11/23/17 07:23 Triglycerides 83 mg/dL (2-149) 11/22/17 11:21 Cholesterol 126 mg/dL (50-199) 11/22/17 11:21 LDL Cholesterol Direct 69 mg/dL (50-130) 11/22/17 11:21 HDL Cholesterol 53 mg/dL (40-59) 11/22/17 11:21 Cholesterol/HDL Ratio 2.37 % 11/22/17 11:21 Blood Type O POSITIVE 11/22/17 11:21 Antibody Screen Negative 11/22/17 11:21
[2017-11-24 17:07] LABS: Bilirubin,Urine NEG (Negative); Blood,Urine NEG (Negative); Color,Urine Yellow (Yellow); Urobilinogen,Urine < 2.0 mg/dL (<2.0); WBC,Urine < 1.0 /HPF (0.0-6.0)
--- NOTE | 2017-11-24 21:01 | Ultrasound Report ---
FINAL REPORT EXAM: US RENAL BILAT HISTORY: renal failure COMPARISON: August 2017. TECHNIQUE: Several real-time grayscale and color Doppler images were obtained. FINDINGS: Right kidney measures 10.3 x 5.8 x 6.7 centimeters. Cortex 1.3 centimeters. Left kidney measures 9.0 x 4.1 x 4.9 centimeters. The cortex measures 1.7 centimeters. There is increased echogenicity kidneys concerning for medical renal disease similar prior study. There benign bilateral renal cysts. At the inferior margin of the right kidney, there is a 4.7 centimeter cyst. At the superior margin of left kidney there is a 1.3 centimeter cyst. Mid left kidney 2.0 centimeter cyst and inferior left kidney 1.5 centimeter cyst. No hydronephrosis. There is gross vascular flow to the kidneys. Urinary bladder is decompressed. IMPRESSION: Benign bilateral renal cysts. No hydronephrosis. Increased echogenicity kidneys similar prior study concerning for medical renal disease.
[2017-11-24] MEDS: PRAVACHOL PO SCH (22:02)
--- NOTE | 2017-11-25 00:06 | Consultation ---
CONSULT REQUESTED BY: Hospitalist. REASON FOR CONSULTATION: Cardiac followup. HISTORY OF PRESENT ILLNESS: This is an 82-year-old patient followed in our office for more than [address] Brand. He has history of coronary artery bypass graft surgery about 10 years ago. He has a permanent pacemaker implanted in 10/2016 because of sinus node dysfunction. The patient was brought to the hospital because of fall and possible seizure disorder. The patient has some degree of Alzheimer disease. The patient's was able to tell us what happened at home. The patient suddenly slumped in other room to the floor. He was awake. The patient complains of chest pain on the right lateral chest because of fall. The patient had cardiac catheterization in 08/2011. He was noted to have patent left internal mammary artery to left anterior descending artery, as well to first diagonal. Saphenous vein graft to obtuse marginal branch was occluded. Right coronary artery revealed mild nonobstructive disease. It was a dominant system. The patient had myocardial perfusion imaging studies done in 08/2017 and this was negative for ischemia. He also had a ventilation perfusion lung scan because of elevated D-dimer and this was negative for emboli. MEDICATIONS AT HOME INCLUDE: 1. Amlodipine 10 mg a day. 2. Aspirin 81 mg a day. 3. Clopidogrel 75 mg a day. 4. Famotidine 20 mg b.i.d. 5. Lovastatin 40 mg at bedtime. 6. Metoprolol tartrate 50 mg b.i.d. 7. Folgard tablet, 1 tablet per day. 8. Levetiracetam 750 mg b.i.d. 9. Calcitriol 0.25 mcg once a day. 10. Aricept 10 mg once a day. 11. Sodium bicarbonate 10 mg b.i.d. SOCIAL HISTORY: The patient does not smoke, never smoked. No history of alcohol intake. PHYSICAL EXAMINATION: GENERAL: The patient in no acute distress. VITAL SIGNS: His body weight is 78.4 kg, BMI 24.1. Blood pressure 120/83, pulse 67 per minute, temperature normal. The patient is being fed by . NECK: No JVP elevation, no bruits noted. HEART: PMI not palpable. Heart sounds are heard. S4 is noted. Systolic murmur grade 2/6 heard at left sternal border. LUNGS: Clear. ABDOMEN: Soft, nontender. Bowel sounds active. EXTREMITIES: No edema. Good pulses. LABORATORY DATA: Hemoglobin 10.1 g%. Hematocrit 31. Potassium 4.5. BUN is 48, creatinine 3.7. Platelet count is 109,000. INR is 1.05. D-dimer is 2318. CPK-MB is 400. Troponin is 0.2067. Cholesterol is 126, LDL 69, HDL 53. Chest x-ray revealed evidence of a pacemaker and no signs of failure. IMPRESSION: 1. History of fall, possible seizure. 2. History of coronary artery bypass graft surgery 10 years ago, stable. The patient had myocardial perfusion imaging studies in 08/2017, was negative. 3. He also had perfusion and ventilation lung scan and this was negative. 4. History of pacemaker implant for sinus node dysfunction. Yesterday, pacemaker was interrogated by medical billing representative. This was noted to be functioning normally. At this time, his cardiac status is stable. Would pursue workup of his seizure disorder. JOB# [id number] KHUSHI/NTS
[2017-11-25] MEDS: HALFPRIN EC PO SCH (10:23)
[2017-11-25] MEDS: NORVASC PO SCH (10:24)
[2017-11-25] MEDS: SODIUM BICARBONATE PO SCH ×2 (10:25→21:40)
[2017-11-25] MEDS: LOPRESSOR PO SCH ×2 (10:28→21:39)
[2017-11-25] MEDS: PEPCID PO SCH (10:28)
[2017-11-25] MEDS: ARICEPT PO SCH (10:29)
[2017-11-25] MEDS: ROCALTROL PO SCH (10:29)
[2017-11-25] MEDS: KEPPRA PO SCH ×2 (10:30→21:40)
[2017-11-25] MEDS: PLAVIX PO SCH (10:30)
[2017-11-25] MEDS: SODIUM CHLORIDE FLUSH SYRINGE 10 ML IV SCH ×2 (10:32→21:41)
--- NOTE | 2017-11-25 11:28 | Progress Note ---
Assessment and Plan Assessment and plan: Patient is a 82-year-old man with a history of hypertension, coronary artery disease, GERD, advanced dementia, seizure disorder, permanent pacemaker the heart block and CK B stage IV presents to emergency department with recurrent falls, discharged for 11/14/17 with similar presentation except this time patient had a seizure episode. Patient has remote history of childhood seizures 2D ECHO: Estimated EF 45-50%, abnormal left ventricular diastolic filling consistent with impaired relaxation, pacemaker wire right ventricle, pacemaker wire right atrium, moderate MR, mild TR CT head without contrast reported as no acute intracranial abnormality, stellar mass appears similar to prior, there are chronic sequela of atrophy and microvascular -Recurrent falls at home: Ordered PT/OT, possible placement -Recurrent seizures: Treated with Keppra, once neurologist is available we will get an EEG -Syncopal seizures: seizure precaution, aspiration and fall precaution- -Acute encephalopathy due to the above. -DVT prophylaxis: asa and plavix -Hyperkalemia resolved -Advance dementia: fall precaution Dispo: ?placement, once cleared by Nephrology go to SNF, d/w case management, Leslie, she will investigate. History Interval history: Patient was seen and examined. Follow-up on current diagnosis of renal failure. Overnight uneventful. Patient denies any chest pain, shortness breath , nausea/vomiting or severe headaches. Imaging, nursing note, chart, labs and old chart reviewed. Discussed with patient. Hospitalist Physical - Physical exam Narrative exam: GEN: thin frial NAD, AWAKE, ALERT, ORIENTATED x 3 HEENT: NCAT, EOMI, PERRL, OP Clear NECK: supple, no adenopathy, no thyromegaly, no JVD CVS/HEART: RRR, NORMAL S1S2, pulses present bilaterally CHEST/LUNGS: CTA B, Symmetrical chest expansion, good air entry bilaterally GI/Abdomen: soft, NTND, good bowel sounds, no guarding or rebound /Bladder: no suprapubic tenderness, no CVA or paraspinal tenderness EXT/Skin: no c/c/e, no obvious rash MSK: FROM x 4 Neuro: CN 2-12 grossly intact, no new focal deficits Psych: calm - Constitutional Vitals: Temp Pulse Resp BP Pulse Ox 98.6 F 71 18 150/95 99 11/25/17 08:13 11/25/17 08:13 11/25/17 08:13 11/25/17 08:13 11/25/17 08:13 General appearance: Present: no acute distress, well-nourished Results - Labs CBC & Chem 7: 11/23/17 07:23 11/25/17 05:49 Labs: Laboratory Last Values WBC 4.0 K/mm3 (4.5-11.0) L 11/23/17 07:23 RBC 4.02 M/mm3 (3.65-5.03) 11/23/17 07:23 Hgb 10.9 gm/dl (11.8-15.2) L 11/23/17 07:23 Hct 35.1 % (35.5-45.6) L 11/23/17 07:23 MCV 87 fl (84-94) 11/23/17 07:23 MCH 27 pg (28-32) L 11/23/17 07:23 MCHC 31 % (32-34) L 11/23/17 07:23 RDW 15.2 % (13.2-15.2) 11/23/17 07:23 Plt Count 104 K/mm3 (140-440) L 11/23/17 07:23 Lymph % (Auto) 23.6 % (13.4-35.0) 11/23/17 07:23 [place] % (Auto) 14.2 % (0.0-7.3) H 11/23/17 07:23 Eos % (Auto) 4.4 % (0.0-4.3) H 11/23/17 07:23 Baso % (Auto) 0.5 % (0.0-1.8) 11/23/17 07:23 Lymph # 0.9 K/mm3 (1.2-5.4) L 11/23/17 07:23 [place] # 0.6 K/mm3 (0.0-0.8) 11/23/17 07:23 Eos # 0.2 K/mm3 (0.0-0.4) 11/23/17 07:23 Baso # 0.0 K/mm3 (0.0-0.1) 11/23/17 07:23 Seg Neutrophils % 57.3 % (40.0-70.0) 11/23/17 07:23 Seg Neutrophils # 2.3 K/mm3 (1.8-7.7) 11/23/17 07:23 PT 14.3 Sec. (12.2-14.9) 11/22/17 11:21 INR 1.05 (0.87-1.13) 11/22/17 11:21 APTT 25.7 Sec. (24.2-36.6) 11/22/17 11:21 D-Dimer 2318.80 ng/mlDDU (0-234) H 11/22/17 11:21 Sodium 139 mmol/L (137-145) 11/25/17 05:49 Potassium 3.9 mmol/L (3.6-5.0) D 11/25/17 05:49 Chloride 100.1 mmol/L (98-107) 11/25/17 05:49 Carbon Dioxide 23 mmol/L (22-30) 11/25/17 05:49 Anion Gap 20 mmol/L 11/25/17 05:49 BUN 38 mg/dL (9-20) H 11/25/17 05:49 Creatinine 3.2 mg/dL (0.8-1.5) H 11/25/17 05:49 Estimated GFR 23 ml/min 11/25/17 05:49 BUN/Creatinine Ratio 12 % 11/25/17 05:49 Glucose 97 mg/dL (75-100) 11/25/17 05:49 Hemoglobin A1c 5.9 % (4-6) 11/22/17 16:20 Calcium 9.0 mg/dL (8.4-10.2) 11/25/17 05:49 Magnesium 2.10 mg/dL (1.7-2.3) 11/22/17 11:21 Total Bilirubin 0.40 mg/dL (0.1-1.2) 11/23/17 07:23 Direct Bilirubin < 0.2 mg/dL (0-0.2) 11/22/17 11:21 AST 28 units/L (5-40) 11/23/17 07:23 ALT 28 units/L (7-56) 11/23/17 07:23 Alkaline Phosphatase 50 units/L (35-129) 11/23/17 07:23 Total Creatine Kinase 400 units/L (55-170) H 11/22/17 11:21 CK-MB (CK-2) 3.0 ng/mL (0.0-4.0) 11/22/17 11:21 CK-MB (CK-2) Rel Index 0.7 (0-4) 11/22/17 11:21 Troponin T 0.067 ng/mL (0.00-0.029) H 11/22/17 11:21 NT-Pro-B Natriuret Pep 1521 pg/mL (0-900) H 11/22/17 11:21 Total Protein 7.2 g/dL (6.3-8.2) 11/23/17 07:23 Albumin 3.6 g/dL (3.9-5) L 11/23/17 07:23 Albumin/Globulin Ratio 1.0 % 11/23/17 07:23 Triglycerides 83 mg/dL (2-149) 11/22/17 11:21 Cholesterol 126 mg/dL (50-199) 11/22/17 11:21 LDL Cholesterol Direct 69 mg/dL (50-130) 11/22/17 11:21 HDL Cholesterol 53 mg/dL (40-59) 11/22/17 11:21 Cholesterol/HDL Ratio 2.37 % 11/22/17 11:21 Urine Color Yellow (Yellow) 11/24/17 16:45 Urine Turbidity Clear (Clear) 11/24/17 16:45 Urine pH 6.0 (5.0-7.0) 11/24/17 16:45 Ur Specific [place] 1.011 (1.003-1.030) 11/24/17 16:45 Urine Protein 100 mg/dl mg/dL (Negative) 11/24/17 16:45 Urine Glucose (UA) Neg mg/dL (Negative) 11/24/17 16:45 Urine Ketones Neg mg/dL (Negative) 11/24/17 16:45 Urine Blood Neg (Negative) 11/24/17 16:45 Urine Nitrite Neg (Negative) 11/24/17 16:45 Urine Bilirubin Neg (Negative) 11/24/17 16:45 Urine Urobilinogen < 2.0 mg/dL (<2.0) 11/24/17 16:45 Ur Leukocyte Esterase Neg (Negative) 11/24/17 16:45 Urine WBC (Auto) < 1.0 /HPF (0.0-6.0) 11/24/17 16:45 Urine RBC (Auto) 1.0 /HPF (0.0-6.0) 11/24/17 16:45 U Epithel Cells (Auto) < 1.0 /HPF (0-13.0) 11/24/17 16:45 Urine Eosinophils None seen (None Seen) 11/24/17 16:45 Blood Type O POSITIVE 11/22/17 11:21 Antibody Screen Negative 11/22/17 11:21
--- NOTE | 2017-11-25 12:48 | Progress Note ---
Assessment and Plan - Patient Problems (1) Acute on chronic renal failure Current Visit: No Status: Acute Plan to address problem: S/P falls/seizures. Non oliguric at present time. Continue present hydration. Scr 3.0-3.2. Avoid Nephrotoxic agents and hypotension. Discussed with pt/ about present medical condition. Physical deconditioning--rehab placement. (2) Seizure disorder Current Visit: Yes Status: Chronic (3) HTN (hypertension) Current Visit: No Status: Chronic (4) CAD (coronary artery disease) Current Visit: Yes Status: Chronic Qualifiers: Coronary Disease-Associated Artery/Lesion type: bypass graft [place] vs. transplanted heart: [place] heart (5) Dementia Current Visit: Yes Status: Chronic Qualifiers: Dementia type: vascular dementia Subjective Date of service: 11/25/17 Principal diagnosis: iwona on ckd 4 Interval history: alert, oriented to person and place. at bed side. Denies CP or SOB Objective - Vital Signs Vital signs: Vital Signs - 12hr 11/25/17 11/25/17 11/25/17 05:00 05:12 08:13 Temperature 98.2 F 98.6 F Pulse Rate 64 72 71 Respiratory 18 18 Rate Blood Pressure 141/72 150/95 O2 Sat by Pulse 99 99 Oximetry - General Appearance General appearance: chronically ill EENT: mucous membranes moist Neck: no JVD Respiratory: Present: Clear to Ascultation Cardiology: regular, S1S2 Gastrointestinal: normoactive bowel sounds Psychiatric: mood/affect appropriate, cooperative - Lab 11/23/17 07:23 11/25/17 05:49 Most recent lab results Calcium 9.0 mg/dL (8.4-10.2) 11/25/17 05:49 Magnesium 2.10 mg/dL (1.7-2.3) 11/22/17 11:21
[2017-11-25] MEDS: PRAVACHOL PO SCH (21:39)
[2017-11-26 06:14] LABS: Calcium 8.8 mg/dL (8.4-10.2)
[2017-11-26] MEDS: ROCALTROL PO SCH (10:10)
[2017-11-26] MEDS: HALFPRIN EC PO SCH (10:10)
[2017-11-26] MEDS: PLAVIX PO SCH (10:10)
[2017-11-26] MEDS: APRESOLINE PO SCH ×2 (10:11→18:48)
[2017-11-26] MEDS: NORVASC PO SCH (10:11)
[2017-11-26] MEDS: SODIUM BICARBONATE PO SCH ×2 (10:11→23:02)
[2017-11-26] MEDS: PEPCID PO SCH (10:12)
[2017-11-26] MEDS: KEPPRA PO SCH ×3 (10:12→23:01)
[2017-11-26] MEDS: LOPRESSOR PO SCH ×2 (10:13→23:02)
[2017-11-26] MEDS: ARICEPT PO SCH (10:13)
--- NOTE | 2017-11-26 12:13 | Progress Note ---
Assessment and Plan - Patient Problems (1) Acute on chronic renal failure Current Visit: No Status: Acute Plan to address problem: S/P falls/seizures. Non oliguric at present time. Continue present hydration. Scr 3.0-3.2--2.9 today. Avoid Nephrotoxic agents and hypotension. Discussed with pt/ about present medical condition. Physical deconditioning--awaiting rehab placement. (2) Seizure disorder Current Visit: Yes Status: Chronic (3) HTN (hypertension) Current Visit: No Status: Chronic (4) CAD (coronary artery disease) Current Visit: Yes Status: Chronic Qualifiers: Coronary Disease-Associated Artery/Lesion type: bypass graft [place] vs. transplanted heart: [place] heart (5) Dementia Current Visit: Yes Status: Chronic Qualifiers: Dementia type: vascular dementia Subjective Date of service: 11/26/17 Principal diagnosis: iwona on ckd 4 Interval history: alert, oriented to person and place. at bed side. Denies CP or SOB. Feeling little better Objective - Vital Signs Vital signs: Vital Signs - 12hr 11/26/17 11/26/17 11/26/17 00:40 04:46 05:19 Temperature 97.6 F 98.2 F Pulse Rate 55 L 57 L 58 L Respiratory 18 18 Rate Blood Pressure 156/85 Blood Pressure 161/97 156/85 [Left] O2 Sat by Pulse 99 100 100 Oximetry 11/26/17 07:46 Temperature 97.8 F Pulse Rate 58 L Respiratory 18 Rate Blood Pressure 147/78 Blood Pressure [Left] O2 Sat by Pulse 100 Oximetry - General Appearance General appearance: chronically ill EENT: mucous membranes moist Neck: no JVD Respiratory: Present: Clear to Ascultation Cardiology: regular, S1S2 Gastrointestinal: normoactive bowel sounds Neurologic: alert and oriented x3 Psychiatric: mood/affect appropriate, cooperative - Lab 11/23/17 07:23 11/26/17 04:09 Most recent lab results Calcium 8.8 mg/dL (8.4-10.2) 11/26/17 04:09 Magnesium 2.10 mg/dL (1.7-2.3) 11/22/17 11:21
[2017-11-26] MEDS: SODIUM CHLORIDE FLUSH SYRINGE 10 ML IV SCH ×2 (13:14→23:03)
--- NOTE | 2017-11-26 14:27 | Progress Note ---
Assessment and Plan / Recurrent falls at home: Ordered PT/OT, need subacute rehabilitation / Recurrent seizures: - Being Treated with Keppra, consult neurology for dose adjustment, we will get an EEG / Syncopal episode: - seizure precaution, aspiration and fall precaution - Status post cardiology evaluation, cardiology concluded no cardiac event precipitated this symptom - CT head on admission was unremarkable - We'll discuss with neurology for further recommendations, even though I don't think his syncopal episode was resembling a seizure episode /Acute encephalopathy due to underlying dementia and possible seizure versus syncopal episode - Patient at baseline now per / Hyperkalemia resolved /Advance dementia: Supportive care. 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 No hydronephrosis /CHF with the ejection fraction 45-50% - Compensated, likely chronic - Continue aspirin, Plavix, beta shell /Coronary artery disease status post CABG 10 years pack - Myocardial perfusion study back on 08/2017 was normal - No further intervention per cardiology, medical management with aspirin and Plavix, beta shell, statin for now /DVT prophylaxis: SCD Dispo: ?placement, once cleared by neurology Brief History: Patient is a 82-year-old man with a history of hypertension, coronary artery disease, GERD, advanced dementia, seizure disorder, permanent pacemaker for the heart block and CKD stage IV presents to emergency department with recurrent falls, discharged for 11/14/17 with similar presentation except this time patient suspected to have a seizure followed by syncopal episode. Patient does have a remote history of childhood seizures. Radiological studies: 2D ECHO: Estimated EF 45-50%, abnormal left ventricular diastolic filling consistent with impaired relaxation, pacemaker wire right ventricle, pacemaker wire right atrium, moderate MR, mild TR CT head without contrast reported as no acute intracranial abnormality, stellar mass appears similar to prior, there are chronic sequela of atrophy and microvascular Hospitalist Physical GEN: thin frial NAD, AWAKE, ALERT, ORIENTATED x 3 HEENT: NCAT, EOMI, PERRL, OP Clear NECK: supple, no adenopathy, no thyromegaly, no JVD CVS/HEART: RRR, NORMAL S1S2, pulses present bilaterally CHEST/LUNGS: CTA B, Symmetrical chest expansion, good air entry bilaterally GI/Abdomen: soft, NTND, good bowel sounds, no guarding or rebound /Bladder: no suprapubic tenderness, no CVA or paraspinal tenderness EXT/Skin: no c/c/e, no obvious rash MSK: FROM x 4 Neuro: CN 2-12 grossly intact, no new focal deficits Psych: calm Subjective Date of service: 11/26/17 Principal diagnosis: iwona on ckd 4 Interval history: Patient was seen and examined. Overnight uneventful. Patient denies any chest pain, shortness breath, nausea/vomiting or severe headaches. Imaging, nursing note, chart, labs and old chart reviewed. Discussed with patient and his at bedside. Objective - Constitutional Vitals: Vital Signs - 12hr 11/26/17 11/26/17 11/26/17 04:46 05:19 07:46 Temperature 98.2 F 97.8 F Pulse Rate 57 L 58 L 58 L Respiratory 18 18 Rate Blood Pressure 156/85 147/78 Blood Pressure 156/85 [Left] O2 Sat by Pulse 100 100 100 Oximetry 11/26/17 13:13 Temperature 97.4 F L Pulse Rate 64 Respiratory 18 Rate Blood Pressure 125/72 Blood Pressure [Left] O2 Sat by Pulse 99 Oximetry - Labs CBC & Chem 7: 11/23/17 07:23 11/27/17 05:54 Labs: Abnormal lab results 11/26/17 Range/Units 04:09 Carbon Dioxide 20 L (22-30) mmol/L BUN 39 H (9-20) mg/dL Creatinine 2.9 H (0.8-1.5) mg/dL
[2017-11-26] MEDS: PRAVACHOL PO SCH (23:02)
[2017-11-27] MEDS: APRESOLINE PO SCH ×3 (02:18→18:07)
[2017-11-27] MEDS: NACL 0.9% 1000 ML 1,000 ML IV SCH (02:19)
[2017-11-27 06:36] LABS: Calcium 8.7 mg/dL (8.4-10.2)
[2017-11-27] MEDS: KEPPRA PO SCH (09:04)
[2017-11-27] MEDS: LOPRESSOR PO SCH (09:04)
[2017-11-27] MEDS: ROCALTROL PO SCH (09:04)
[2017-11-27] MEDS: NORVASC PO SCH (09:04)
[2017-11-27] MEDS: SODIUM BICARBONATE PO SCH (09:05)
[2017-11-27] MEDS: HALFPRIN EC PO SCH (09:05)
[2017-11-27] MEDS: PEPCID PO SCH (09:05)
[2017-11-27] MEDS: PLAVIX PO SCH (09:05)
[2017-11-27] MEDS: SODIUM CHLORIDE FLUSH SYRINGE 10 ML IV SCH (11:40)
[2017-11-27 12:37] VITALS: BP 113/63
--- NOTE | 2017-11-27 13:21 | Progress Note ---
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 No hydronephrosis * HTN * Hyperkalemia - resolved * Metabolic acidosis * Monoclonal gammaopathy * Anemia in CKD * CAD * Arrhythmia * Near Syncope Plan: * No indication for ASSISTANT MANAGER PT at this time. Renal function gradually improved * Continue IV hydration. Encourage po hydration * Daily lytes * Avoid nephrotoxins * Renal diet * Awaiting SNF Subjective Date of service: 11/27/17 Principal diagnosis: serene on ckd 4 Interval history: Patient has no complaints. He denies SOB. Reports right flank/rib pain s/p previous fall prior to admission. Objective - Vital Signs Vital signs: Vital Signs - 12hr 11/27/17 11/27/17 11/27/17 02:11 02:12 02:18 Temperature Pulse Rate 60 52 L 63 Pulse Rate [ From Monitor] Respiratory 150 H Rate Blood Pressure 156/89 156/89 Blood Pressure [Left] O2 Sat by Pulse 100 100 Oximetry 11/27/17 11/27/17 11/27/17 02:42 04:17 04:18 Temperature 98.5 F 98.5 F Pulse Rate 64 63 Pulse Rate [ From Monitor] Respiratory 20 Rate Blood Pressure 151/71 Blood Pressure [Left] O2 Sat by Pulse 100 100 Oximetry 11/27/17 11/27/17 11/27/17 08:31 09:04 10:00 Temperature 97.3 F L Pulse Rate 68 68 Pulse Rate [ 68 From Monitor] Respiratory 18 18 Rate Blood Pressure 144/67 144/67 Blood Pressure [Left] O2 Sat by Pulse 99 99 Oximetry 11/27/17 12:37 Temperature Pulse Rate 59 L Pulse Rate [ From Monitor] Respiratory Rate Blood Pressure Blood Pressure 113/63 [Left] O2 Sat by Pulse Oximetry - General Appearance General appearance: well-developed, well-nourished EENT: ATNC Neck: no JVD Respiratory: Present: Clear to Ascultation Cardiology: regular, S1S2 Gastrointestinal: normal, no tenderness, no distended Integumentary: no rash, warm and dry Neurologic: alert and oriented x3 Musculoskeletal: other (no edema) Psychiatric: cooperative - Lab 11/23/17 07:23 11/27/17 05:54 Most recent lab results Calcium 8.7 mg/dL (8.4-10.2) 11/27/17 05:54 Magnesium 2.10 mg/dL (1.7-2.3) 11/22/17 11:21
--- NOTE | 2017-11-27 14:07 | Query- Renal Failure ---
Deamonty Lockwood Nikky Date: 11/27/17 It Software Engineer/CDS:___Rohit Phone#:___[phone] Exercise your independent professional judgment when responding to query. Questions asked do not imply a particular answer is desired or expected. We greatly appreciate your clarification on this issue. Clinical Documentation States: 82 year old male was admitted on 11/22/17 The progress note (Dr. Sher) states " Patient is a 82-year-old man with a history of hypertension, coronary artery disease, GERD, advanced dementia, seizure disorder, permanent pacemaker the heart block and CK B stage IV presents to emergency department with recurrent falls, " The Nephrology progress note (Dr. 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 No hydronephrosis " Clinical Findings Show: 11/22/17 11/24/17 11/27/17 Creatinine: 3.7 3.0 2.8 BUN/Creatinine Ratio: 13 13 15 Please clarify if you mean: Acute Renal Failure with or due to: [ ] Tubular Necrosis [ ] Medullary Necrosis [ x] Vasomotor Nephropathy [ ] Shock Kidney [ ] Tubular Nephrosis [ ] Renal Tubular Stasis [ ] Cortical Necrosis [ ] Acute Renal Failure (unspecified) [ ] Lower Tubular Nephrosis [ ] Other: [ ] Not Applicable Present on Admission: [x ] Yes (Y) [ ] Clinically undeterminable (W) [ ] No (N) Please also document response in your Progress Notes and/or Discharge Summary and indicate if the condition was present on admission. ANAISD
--- NOTE | 2017-11-27 14:39 | Discharge Summary ---
Providers - Providers Date of Admission: 11/22/17 15:10 Date of discharge: 11/27/17 Attending physician: MYCHAL JACOBS 11/23/17 07:54 Consult to Physician [CONS] Routine Comment: Consulting Provider: PATRICK AREVALO Physician Instructions: Reason For Exam: Bradycardia/Syncope 11/23/17 07:57 Consult to Physician [CONS] Routine Comment: Consulting Provider: MISHA RODRIGUEZ Physician Instructions: Reason For Exam: CKD 11/23/17 14:48 Consult to Dietitian/Nutrition [CONS] Routine Physician Instructions: Reason For Exam: Reason for Consult: Poor oral intake Occupational Therapy Evaluate and Treat [CONS] Routine Comment: Reason For Exam: ADLs evaluation Physical Therapy Evaluation and Treat [CONS] Routine Comment: Reason For Exam: ADLs evaluation Primary care physician: SHOVEL ENGINEER Hospitalization Condition: Stable Hospital course: Brief History: Patient is a 82-year-old man with a history of hypertension, coronary artery disease, GERD, advanced dementia, seizure disorder, permanent pacemaker for the heart block and CKD stage IV presents to emergency department with recurrent falls, discharged for 11/14/17 with similar presentation except this time patient suspected to have a seizure followed by syncopal episode. Patient does have a remote history of childhood seizures. Patient was admitted for further evaluation and management. Discharge diagnosis and management: / Recurrent falls at home: Likely due to dehydration, physical debility, underlying advanced dementia Ordered PT/OT, recommended subacute rehabilitation / Recurrent seizures: Neurology consulted, increased the dose of keppra to 1500mg BID / Syncopal episode: Likely vasovagal - seizure precaution, aspiration and fall precaution - Status post cardiology evaluation, cardiology concluded no cardiac event precipitated this symptom - CT head on admission was unremarkable - Discuss with neurology and don't think this was resembling a seizure episode /Acute encephalopathy due to underlying dementia and possible seizure versus syncopal episode - Patient at baseline now per / Hyperkalemia resolved /Advance dementia: Supportive care. DC Aricept for recurrent seizure episode and syncope. 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 No hydronephrosis /CHF with the ejection fraction 45-50% - Compensated, likely chronic - Continue aspirin, Plavix, beta shell /Coronary artery disease status post CABG 10 years pack - Myocardial perfusion study back on 08/2017 was normal - No further intervention per cardiology, medical management with aspirin and Plavix, beta shell, statin for now /DVT prophylaxis: SCD Radiological studies: 2D ECHO: Estimated EF 45-50%, abnormal left ventricular diastolic filling consistent with impaired relaxation, pacemaker wire right ventricle, pacemaker wire right atrium, moderate MR, mild TR CT head without contrast reported as no acute intracranial abnormality, stellar mass appears similar to prior, there are chronic sequela of atrophy and microvascular. Renal ultrasound: Medical renal disease without any hydronephrosis Carotid Dopplers: No significant bilateral carotid stenosis Hospitalist Physical GEN: thin frial NAD, AWAKE, ALERT, ORIENTATED x 3 HEENT: NCAT, EOMI, PERRL, OP Clear NECK: supple, no adenopathy, no thyromegaly, no JVD CVS/HEART: RRR, NORMAL S1S2, pulses present bilaterally CHEST/LUNGS: CTA B, Symmetrical chest expansion, good air entry bilaterally GI/Abdomen: soft, NTND, good bowel sounds, no guarding or rebound /Bladder: no suprapubic tenderness, no CVA or paraspinal tenderness EXT/Skin: no c/c/e, no obvious rash MSK: FROM x 4 Neuro: CN 2-12 grossly intact, no new focal deficits Psych: calm Disposition: DC/[facility] Time spent for discharge: 34 minutes Core Measure Documentation - Palliative Care Palliative Care/ Comfort Measures: Not Applicable - Core Measures Any of the following diagnoses?: heart failure, history only - Heart Failure Discharge Requirements VITO/ARB for LVSD if EF <40%: Not Applicable Beta shell at discharge: Yes Exam - Constitutional Vitals: Temp Pulse Resp BP Pulse Ox 97.3 F L 59 L 18 113/63 99 11/27/17 08:31 11/27/17 12:37 11/27/17 10:00 11/27/17 12:37 11/27/17 10:00 Plan Activity: advance as tolerated Weight Bearing Status: Non-Weight Bearing Diet: low fat, low cholesterol Follow up with: PRIMARY CARE, [Primary Care Provider] - 3-5 Days Prescriptions: hydrALAZINE [Apresoline TAB] 25 mg PO Q8H #90 tablet levETIRAcetam [Keppra TAB] 1,500 mg PO BID #60 tablet
== END 2017-11-27 18:05 | DRG 682 ==
LOC: ED 11:03 → 4A 15:10
PROVIDERS: ADMIT Internal Medicine; ATTEND Internal Medicine
PROC: 4B02XSZ Measurement of Cardiac Pacemaker, External Approach (ICD-10-PCS; principal; 2017-11-22)
DX: N17.0 Acute kidney failure with tubular necrosis (principal); G93.40 Encephalopathy, unspecified; E44.1 Mild protein-calorie malnutrition; I44.2 Atrioventricular block, complete; R65.10 Systemic inflammatory response syndrome (SIRS) of non-infectious origin without acute organ dysfunction; I13.0 Hypertensive heart and chronic kidney disease with heart failure and stage 1 through stage 4 chronic kidney disease, or unspecified chronic kidney disease; N18.4 Chronic kidney disease, stage 4 (severe); R79.89 Other specified abnormal findings of blood chemistry; E87.5 Hyperkalemia; W19.XXXA Unspecified fall, initial encounter; G30.9 Alzheimer's disease, unspecified; F02.80 Dementia in other diseases classified elsewhere, unspecified severity, without behavioral disturbance, psychotic disturbance, mood disturbance, and anxiety; D69.6 Thrombocytopenia, unspecified; I25.10 Atherosclerotic heart disease of native coronary artery without angina pectoris; E78.5 Hyperlipidemia, unspecified; G40.909 Epilepsy, unspecified, not intractable, without status epilepticus; I50.9 Heart failure, unspecified; D63.1 Anemia in chronic kidney disease; E11.65 Type 2 diabetes mellitus with hyperglycemia; E11.22 Type 2 diabetes mellitus with diabetic chronic kidney disease; D47.2 Monoclonal gammopathy; I95.9 Hypotension, unspecified; F01.50 Vascular dementia, unspecified severity, without behavioral disturbance, psychotic disturbance, mood disturbance, and anxiety; Z95.0 Presence of cardiac pacemaker; Z79.899 Other long term (current) drug therapy; Y93.89 Activity, other specified; Y92.89 Other specified places as the place of occurrence of the external cause; Y99.8 Other external cause status; Z79.1 Long term (current) use of non-steroidal anti-inflammatories (NSAID); Z95.1 Presence of aortocoronary bypass graft; Z68.24 Body mass index [BMI] 24.0-24.9, adult
CPT/HCPCS: 36415; 70450; 71045; 76770; 80048; 80053; 80061; 80074; 81001; 82550; 82553; 83036; 83735; 83880; 84484; 85025; 85379; 85610; 85730; 86850; 86900; 86901; 89050; 93005; 93010; 93306; 93880; 95819; 96374; A9270-GY; G8978-GP; G8979-GP; G8987-GO; G8988-GO; J1953; J2060; J2785; J7030

== ENCOUNTER 2018-06-08 21:08 | Emergency (ER) | payer MEDICARE ==
[2018-06-08] MEDS ORDERED: NACL 0.9% 1000 ML 1,000 ML IV ONE (21:30)
[2018-06-08] MEDS ORDERED: ZOFRAN IV ONE (21:30)
--- NOTE | 2018-06-08 21:35 | Emergency Department Report ---
ED Abdominal Pain HPI - General Stated Complaint: NAUSEA,VOMITING,DIARRHEA Time Seen by Provider: 06/08/18 21:26 - History of Present Illness Initial Comments: Patient is 82 years old male with history of advanced dementia, CABG, hypertension. Patient presented to the ER via EMS complaining of sudden onset of vomiting and diarrhea and mild abdominal pain described it as diffuse and crampy. Patient stated that his pain is completely resolved now. Patient denied any chest pain or shortness of breath. Patient also denied any recent history of fever. MD Complaint: abdominal pain -: This evening Location: diffuse Radiation: none Migration to: no migration Severity: mild Quality: cramping - Related Data Home Medications Medication Instructions Recorded Confirmed Last Taken Amlodipine Besylate 10 mg PO DAILY 10/11/16 11/22/17 09/04/17 Aspirin EC [Aspirin Enteric Coated 81 mg PO DAILY 10/11/16 11/22/17 09/04/17 TAB] Clopidogrel Bisulfate [Clopidogrel] 75 mg PO DAILY 10/11/16 11/22/17 09/04/17 Famotidine 20 mg PO BID 10/11/16 11/22/17 09/04/17 Lovastatin 40 mg PO HS 10/11/16 11/22/17 09/04/17 Metoprolol Tartrate 50 mg PO BID 10/11/16 11/22/17 09/04/17 Vit D3/Folic Acid/B2/B6/B12 1 each PO DAILY 10/11/16 11/22/17 09/04/17 [Folgard Tablet] Calcitriol [Rocaltrol] 0.25 mcg PO DAILY 09/05/17 11/22/17 09/04/17 Sodium Bicarbonate 10 mg PO BID 11/11/17 11/22/17 Unknown Previous Rx's Medication Instructions Recorded Last Taken Type hydrALAZINE [Apresoline TAB] 25 mg PO Q8H #90 tablet 11/27/17 Unknown Rx levETIRAcetam [Keppra TAB] 1,500 mg PO BID #60 tablet 11/27/17 Unknown Rx Allergies Allergy/AdvReac Type Severity Reaction Status Date / Time No Known Allergies Allergy Verified 11/22/17 11:25 ED Review of Systems ROS: Stated complaint: NAUSEA,VOMITING,DIARRHEA Other details as noted in HPI Comment: All other systems reviewed and negative Constitutional: denies: chills, fever Respiratory: denies: cough, orthopnea, shortness of breath, SOB with exertion, SOB at rest, wheezing Cardiovascular: denies: chest pain, palpitations, dyspnea on exertion, orthopnea Gastrointestinal: abdominal pain, nausea, vomiting, diarrhea. denies: constipation, hematemesis, melena, hematochezia Genitourinary: denies: urgency, dysuria Neurological: denies: headache, weakness, numbness, paresthesias, confusion ED Past Medical Hx - Past Medical History Hx Hypertension: Yes Hx Heart Attack/AMI: No Hx Congestive Heart Failure: No Hx Seizures: Yes (as a child under 1 yr old) Hx HIV: No - Surgical History Hx Open Heart Surgery: Yes (CABG) Hx Pacemaker: Yes (new implant 10/11/16) - Social History Smoking Status: Never Smoker - Medications Home Medications: Home Medications Medication Instructions Recorded Confirmed Last Taken Type Amlodipine Besylate 10 mg PO DAILY 10/11/16 11/22/17 09/04/17 History Aspirin EC [Aspirin Enteric Coated 81 mg PO DAILY 10/11/16 11/22/17 09/04/17 History TAB] Clopidogrel Bisulfate [Clopidogrel] 75 mg PO DAILY 10/11/16 11/22/17 09/04/17 History Famotidine 20 mg PO BID 10/11/16 11/22/17 09/04/17 History Lovastatin 40 mg PO HS 10/11/16 11/22/17 09/04/17 History Metoprolol Tartrate 50 mg PO BID 10/11/16 11/22/17 09/04/17 History Vit D3/Folic Acid/B2/B6/B12 1 each PO DAILY 10/11/16 11/22/17 09/04/17 History [Folgard Tablet] Calcitriol [Rocaltrol] 0.25 mcg PO DAILY 09/05/17 11/22/17 09/04/17 History Sodium Bicarbonate 10 mg PO BID 11/11/17 11/22/17 Unknown History hydrALAZINE [Apresoline TAB] 25 mg PO Q8H #90 tablet 11/27/17 Unknown Rx levETIRAcetam [Keppra TAB] 1,500 mg PO BID #60 tablet 11/27/17 Unknown Rx ED Physical Exam - General Limitations: Altered Mental Status General appearance: alert, in no apparent distress - Head Head exam: Present: atraumatic, normocephalic, normal inspection - Eye Eye exam: Present: normal appearance, PERRL - ENT ENT exam: Present: normal exam, normal orophraynx, mucous membranes moist - Neck Neck exam: Present: normal inspection, full ROM. Absent: tenderness, meningismus, lymphadenopathy, thyromegaly - Respiratory Respiratory exam: Present: normal lung sounds bilaterally. Absent: respiratory distress, wheezes, rales, rhonchi, accessory muscle use, decreased breath sounds , prolonged expiratory - Cardiovascular Cardiovascular Exam: Present: regular rate, normal rhythm, normal heart sounds - GI/Abdominal GI/Abdominal exam: Present: soft, normal bowel sounds. Absent: distended, tenderness, guarding, rebound, rigid, organomegaly, mass, bruit, pulsatile mass - Extremities Exam Extremities exam: Present: normal inspection, full ROM, normal capillary refill. Absent: tenderness, pedal edema, calf tenderness - Back Exam Back exam: Present: normal inspection, full ROM. Absent: tenderness, CVA tenderness (R) - Neurological Exam Neurological exam: Present: alert, altered (dementia) - Skin Skin exam: Present: warm, intact, normal color ED Course Vital Signs 06/08/18 06/08/18 06/08/18 21:28 21:30 21:38 Pulse Rate 66 60 Respiratory 15 22 18 Rate Blood Pressure 145/77 O2 Sat by Pulse 100 Oximetry 06/08/18 06/08/18 06/09/18 22:01 23:00 01:01 Pulse Rate 70 66 75 Respiratory 18 17 18 Rate Blood Pressure 151/81 149/85 144/78 O2 Sat by Pulse 100 99 Oximetry 06/09/18 02:00 Pulse Rate 85 Respiratory 16 Rate Blood Pressure 156/86 O2 Sat by Pulse 97 Oximetry ED Medical Decision Making - Lab Data Result diagrams: 06/08/18 22:12 06/08/18 22:12 - EKG Data -: EKG Interpreted by Pa - EKG Data Interpretation: no acute changes 06/09/18 01:24 PACED RHYTHM. - Radiology Data Referring Physician: PHUONG ABREU Patient Name: KUN ODVE Date of : 1935 Sex: Male Report Date: 2018-06-09 Report Status: Finalized Findings [facility] [address] [place] [address] Cat Scan Report Signed Patient: KUN DOVE MR#: [id number] : 1935 Acct:[id number] Age/Sex: 82 / M ADM Date: 06/08/18 Loc: ED Attending Dr: Ordering Physician: PHUONG ABREU Date of Service: 06/08/18 Procedure(s): CT abdomen pelvis wo con Accession Number(s): [id number] cc: PHUONG ABREU FINAL REPORT EXAM: CT ABDOMEN PELVIS WO CON HISTORY: ABDOMINAL PAIN TECHNIQUE: Routine axial imaging was obtained of the abdomen and pelvis without oral or IV contrast. Sagittal and coronal reconstructions were reviewed FINDINGS: The lung bases reveal mild chronic changes. The heart is mildly enlarged. The liver, gallbladder, biliary tree, pancreas and spleen appear normal. The adrenal glands appear normal. The kidneys reveal multiple benign cortical cysts bilaterally measuring up to 5 cm in diameter the right kidney. There are multiple nonobstructing calcifications both kidneys measure up to 6 millimeters in diameter. The abdominal aorta has maximum is 3 cm. The bowel loops are not distended. There are multiple uncomplicated colonic diverticula. The appendix is not seen. In the pelvis the prostate gland is normal size and contains radiation implant seeds. The bladder appears normal. The skeletal structures reveal multilevel disc degeneration in the lumbar spine. IMPRESSION: No acute process in the abdomen and pelvis. Multiple benign cortical cysts and nonobstructing stones both kidneys. No evidence of hydronephrosis. Uncomplicated colonic diverticulosis. 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 Transcribed By: RB Dictated By: FINN DURHAM MD Electronically Authenticated By: FINN DURHAM MD Signed Date/Time: 06/09/1842 DD/ TD/TT: 06/09/1842 - Medical Decision Making Mr Dove is 82 years old male with history of advanced dementia, CABG, hypertension. Patient presented to the ER via EMS complaining of sudden onset of vomiting and diarrhea and mild abdominal pain described it as diffuse and crampy. Patient stated that his pain is completely resolved now. Patient denied any chest pain or shortness of breath. Patient also denied any recent history of fever. Patient remained asymptomatic in the ER with no vomiting or diarrhea. Patient CT abdomen and pelvis is unremarkable. EKG is unremarkable for acute finding 2 sets of troponin slightly increase but patient creatinine is up. Patient will be discharged home in a stable clinical condition to follow-up with his primary care physician. I provided him with a prescription for Zofran. I advised him to return to the ER if his symptoms return. Critical care attestation.: If time is entered above; I have spent that time in minutes in the direct care of this critically ill patient, excluding procedure time. ED Disposition Clinical Impression: Abdominal pain, Vomiting, Diarrhea Disposition: DC- TO HOME OR SELFCARE Is pt being admited?: No Condition: Stable Instructions: Abdominal Pain (ED), Acute Nausea and Vomiting (ED) Referrals: PRIMARY CARE, [Primary Care Provider] - 3-5 Days
[2018-06-08 22:46] LABS: Basophils % (Auto) 0.5 % (0.0-1.8); Eosinophils # (Auto) 0.3 K/mm3 (0.0-0.4); Eosinophils % (Auto) 6.5 % (0.0-4.3); Hematocrit 36.3 % (35.5-45.6); Hemoglobin 11.3 gm/dl (11.8-15.2); Lymphocytes # (Auto) 0.9 K/mm3 (1.2-5.4); Lymphocytes % (Auto) 21.9 % (13.4-35.0); Mean Corpuscular HGB Conc 31 % (32-34); Mean Corpuscular Hemoglobin 27 pg (28-32); Mean Corpuscular Volume 87 fl (84-94); Monocytes # (Auto) 0.4 K/mm3 (0.0-0.8); Monocytes % (Auto) 10.8 % (0.0-7.3); Platelet Count 122 K/mm3 (140-440); Red Blood Count 4.19 M/mm3 (3.65-5.03)
[2018-06-08 23:22] LABS: Alanine Aminotransferase 11 units/L (7-56); Albumin 4.2 g/dL (3.9-5); BUN/Creatinine Ratio 12; Blood Urea Nitrogen 41 mg/dL (9-20); Calcium 9.8 mg/dL (8.4-10.2); Hemolysis Index 10; Lipase 23 units/L (13-60)
[2018-06-08 23:24] LABS: Chol/HDL Ratio 2.22 %
--- NOTE | 2018-06-09 00:45 | Cat Scan Report ---
FINAL REPORT EXAM: CT ABDOMEN PELVIS WO CON HISTORY: ABDOMINAL PAIN TECHNIQUE: Routine axial imaging was obtained of the abdomen and pelvis without oral or IV contrast. Sagittal and coronal reconstructions were reviewed FINDINGS: The lung bases reveal mild chronic changes. The heart is mildly enlarged. The liver, gallbladder, biliary tree, pancreas and spleen appear normal. The adrenal glands appear normal. The kidneys reveal multiple benign cortical cysts bilaterally measuring up to 5 cm in diameter the right kidney. There are multiple nonobstructing calcifications both kidneys measure up to 6 millimeters in diameter. The abdominal aorta has maximum is 3 cm. The bowel loops are not distended. There are multiple uncomplicated colonic diverticula. The appendix is not seen. In the pelvis the prostate gland is normal size and contains radiation implant seeds. The bladder appears normal. The skeletal structures reveal multilevel disc degeneration in the lumbar spine. IMPRESSION: No acute process in the abdomen and pelvis. Multiple benign cortical cysts and nonobstructing stones both kidneys. No evidence of hydronephrosis. Uncomplicated colonic diverticulosis. 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
[2018-06-09 01:41] LABS: Bilirubin,Urine NEG (Negative); Blood,Urine NEG (Negative); Color,Urine Straw (Yellow); Urobilinogen,Urine < 2.0 mg/dL (<2.0); WBC,Urine < 1.0 /HPF (0.0-6.0)
[2018-06-09 04:03] VITALS: BP 157/83
== END 2018-06-09 04:04 | disposition home or self-care (01) ==
LOC: ED 21:08
DX: R11.10 Vomiting, unspecified (principal); R19.7 Diarrhea, unspecified; R10.84 Generalized abdominal pain; I10 Essential (primary) hypertension; Z95.0 Presence of cardiac pacemaker; Z79.82 Long term (current) use of aspirin
CPT/HCPCS: 36415; 74176; 80048; 80061; 80074; 81001; 83690; 84484; 85025; 93005; 93010; 96361; 96374; 99285; J2405; J7030

== ENCOUNTER 2018-10-29 21:00 | Emergency (ER) | payer MEDICARE ==
--- NOTE | 2018-10-29 21:09 | Emergency Department Report ---
Blank Doc - Documentation Documentation: This is a 83-year-old male brought by with AMS. This initial assessment diagnostic orders/clinical plan/treatment(s) is/are subject to change based on patient's health status, clinical progression and re- assessment by fellow clinical providers in the ED. Further treatment and workup at subsequent clinical providers discretion. Patient/guardians urged not to elope from ED s their condition may be serious if not clinically assessed and managed. Initial orders include: 1-Patient sent to MAIN ED for further evaluation and treatment 2- Labs 3- EKG
--- NOTE | 2018-10-29 21:38 | Emergency Department Report ---
ED General Adult HPI - General Chief complaint: Altered Mental Status Stated complaint: HBP Time Seen by Provider: 10/29/18 21:08 Source: patient, RN notes reviewed Mode of arrival: Ambulatory Limitations: Other (patient is demented and is a poor historian) - History of Present Illness Initial comments: Primary care Dr.: Dr Faulkner Cardiology: Dr Brand renal: Dr Corea Past medical history: Recurring falls, physical debility, advanced dementia, possible seizures, CK D stage IV, congestive heart failure, ejection fraction 45-50%, heart disease status post CABG This is an 83-year-old gentleman whom I have evaluated in the past, who presents to the emergency room with his for evaluation of unusual behavior. The patient has no complaints at this time. He denies headache, neck pain, chest pain, abdominal pain, shortness of breath, urinary symptoms. He denies audio, visual hallucinations. He states "I don't know why I'm here." His reports that earlier on today, at home, he started yelling that someone was outside and trying to break into the house. He reportedly stated that he was at a hearing or seeing things that weren't there. His indicates no fevers, chills, vomiting, diarrhea, loss of consciousness. Patient recently had his hydralazine uptitrated last month by his vacuum drum drier operator. The patient's endorses that the patient can take care of himself in terms of his activities of daily living, that he has not fallen recently, that he is able to dress himself, feed himself, and toilet him self. As of yet, the patient's has not made arrangements for shelter care, home health aid, or halfway placement. -: Sudden Severity scale (0 -10): 0 Consistency: now resolved Improves with: none Worsens with: none Associated Symptoms: denies other symptoms - Related Data Home Medications Medication Instructions Recorded Confirmed Last Taken Amlodipine Besylate 10 mg PO DAILY 10/11/16 11/22/17 09/04/17 Aspirin EC [Aspirin Enteric Coated 81 mg PO DAILY 10/11/16 11/22/17 09/04/17 TAB] Clopidogrel Bisulfate [Clopidogrel] 75 mg PO DAILY 10/11/16 11/22/17 09/04/17 Famotidine 20 mg PO BID 10/11/16 11/22/17 09/04/17 Lovastatin 40 mg PO HS 10/11/16 11/22/17 09/04/17 Metoprolol Tartrate 50 mg PO BID 10/11/16 11/22/17 09/04/17 Vit D3/Folic Acid/B2/B6/B12 1 each PO DAILY 10/11/16 11/22/17 09/04/17 [Folgard Tablet] Calcitriol [Rocaltrol] 0.25 mcg PO DAILY 09/05/17 11/22/17 09/04/17 Sodium Bicarbonate 10 mg PO BID 11/11/17 11/22/17 Unknown Previous Rx's Medication Instructions Recorded Last Taken Type hydrALAZINE [Apresoline TAB] 25 mg PO Q8H #90 tablet 11/27/17 Unknown Rx levETIRAcetam [Keppra TAB] 1,500 mg PO BID #60 tablet 11/27/17 Unknown Rx Ondansetron [Zofran Odt] 4 mg PO Q8HR PRN #14 tab.rapdis 06/09/18 Unknown Rx Allergies Allergy/AdvReac Type Severity Reaction Status Date / Time No Known Allergies Allergy Verified 11/22/17 11:25 ED Review of Systems ROS: Stated complaint: HBP Other details as noted in HPI Constitutional: denies: fever Eyes: denies: eye discharge ENT: denies: epistaxis Respiratory: denies: cough Cardiovascular: denies: chest pain, syncope Gastrointestinal: denies: abdominal pain Genitourinary: denies: dysuria Musculoskeletal: denies: myalgia Neurological: confusion ED Past Medical Hx - Past Medical History Hx Hypertension: Yes Hx Heart Attack/AMI: No Hx Congestive Heart Failure: No Hx Seizures: Yes (as a child under 1 yr old) Hx HIV: No - Surgical History Hx Open Heart Surgery: Yes (CABG) Hx Pacemaker: Yes (new implant 10/11/16) - Social History Smoking Status: Never Smoker Substance Use Type: None - Medications Home Medications: Home Medications Medication Instructions Recorded Confirmed Last Taken Type Amlodipine Besylate 10 mg PO DAILY 10/11/16 11/22/17 09/04/17 History Aspirin EC [Aspirin Enteric Coated 81 mg PO DAILY 10/11/16 11/22/17 09/04/17 History TAB] Clopidogrel Bisulfate [Clopidogrel] 75 mg PO DAILY 10/11/16 11/22/17 09/04/17 History Famotidine 20 mg PO BID 10/11/16 11/22/17 09/04/17 History Lovastatin 40 mg PO HS 10/11/16 11/22/17 09/04/17 History Metoprolol Tartrate 50 mg PO BID 10/11/16 11/22/17 09/04/17 History Vit D3/Folic Acid/B2/B6/B12 1 each PO DAILY 10/11/16 11/22/17 09/04/17 History [Folgard Tablet] Calcitriol [Rocaltrol] 0.25 mcg PO DAILY 09/05/17 11/22/17 09/04/17 History Sodium Bicarbonate 10 mg PO BID 11/11/17 11/22/17 Unknown History hydrALAZINE [Apresoline TAB] 25 mg PO Q8H #90 tablet 11/27/17 Unknown Rx levETIRAcetam [Keppra TAB] 1,500 mg PO BID #60 tablet 11/27/17 Unknown Rx Ondansetron [Zofran Odt] 4 mg PO Q8HR PRN #14 tab.rapdis 06/09/18 Unknown Rx ED Physical Exam - General Limitations: No Limitations, Other (patient is demented. Patient is a poor historian.) General appearance: alert, in no apparent distress - Head Head exam: Present: atraumatic, normocephalic - Eye Eye exam: Present: normal appearance (bilateral arcus senilis noted), EOMI, other (visual acuity intact to finger counting and color perception.). Absent: nystagmus - ENT ENT exam: Present: normal exam, normal orophraynx, mucous membranes moist, normal external ear exam - Neck Neck exam: Present: normal inspection, full ROM. Absent: tenderness, meningismus - Respiratory Respiratory exam: Present: normal lung sounds bilaterally. Absent: respiratory distress - Cardiovascular Cardiovascular Exam: Present: regular rate, normal rhythm, normal heart sounds. Absent: bradycardia, tachycardia, irregular rhythm, systolic murmur, diastolic murmur, rubs, gallop - GI/Abdominal GI/Abdominal exam: Present: soft. Absent: distended, tenderness, guarding, rebound, rigid, pulsatile mass - Rectal Rectal exam: Present: deferred - Extremities Exam Extremities exam: Present: normal inspection, full ROM, pedal edema, other (2+ pulses noted in the bilateral upper, lower extremities. Compartments soft. No long bony tenderness. The pelvis is stable.). Absent: calf tenderness - Back Exam Back exam: Present: normal inspection, full ROM. Absent: tenderness, CVA tenderness (R), paraspinal tenderness, vertebral tenderness - Neurological Exam Neurological exam: Present: alert (patient is alert to name and knows that he is in the hospital. He is able to recognize his .), other (Extraocular movements intact. Tongue midline. No facial droop. Facial sensation intact to light touch in the V1, V2, V3 distribution bilaterally. 5 and 5 strength in 4 extremities.. Sensation is intact to light touch in 4 extremities.). Absent: motor sensory deficit - Psychiatric Psychiatric exam: Present: normal affect, normal mood - Skin Skin exam: Present: warm, dry, intact, normal color. Absent: rash ED Course Vital Signs 10/29/18 10/29/18 21:06 22:19 Temperature 95 F L 97.5 F L Pulse Rate 62 54 L Respiratory 20 14 Rate Blood Pressure 189/96 Blood Pressure 167/71 [Left] O2 Sat by Pulse 100 100 Oximetry - Reevaluation(s) Reevaluation #1: 10/29/18 22:50 Differential diagnosis, including but not limited to: Dementia, intracranial hemorrhage, pneumonia, urinary tract infection Assessment and plan: 83-year-old gentleman with documented chronic worsening dementia, chronic renal insufficiency, with resolved complaints of hallucinations. Specifically, the patient had indicated that he thought people were trying to break into his house. In the emergency room, the patient is pleasant, calm and cooperative, and makes no endorsement of homicidality, suicidality or hallucinations. He is afebrile with reassuring vital signs. His laboratory studies appear to be at baseline. His physical exam appears to be at baseline. Most likely, the patient and family are experiencing the natural expected progression of dementia. The case management consult has been requested to assist the patient's with determining issues of care, home health aide versus halfway. This is discussed extensively with the patient's who verbalizes understanding. Thus far, and the patient has remained in the emergency room for a few hours, without episodes of syncope, loss of consciousness, vomiting, and is pleasant, calm and cooperative, and in no acute distress. Reevaluation #2: 10/29/18 23:09 CT scan of the brain is negative for acute disease. X-ray of the chest is negative for acute disease. Patient no distress. Case has been consult will be rendered in the morning. Medically suitable for discharge at this point in time. No additional episodes of hallucinations. ED Medical Decision Making - Lab Data Result diagrams: 10/29/18 21:43 10/29/18 21:43 Vital Signs 10/29/18 10/29/18 21:06 22:19 Temperature 95 F L 97.5 F L Pulse Rate 62 54 L Respiratory 20 14 Rate Blood Pressure 189/96 Blood Pressure 167/71 [Left] O2 Sat by Pulse 100 100 Oximetry Labs 10/29/18 10/29/18 10/29/18 21:15 21:43 21:43 WBC 2.9 L RBC 3.83 Hgb 10.3 L Hct 31.8 L MCV 83 L MCH 27 L MCHC 32 RDW 15.7 H Plt Count 140 Lymph % (Auto) Carry Out Clerk And Shelf Stocker [place] % (Auto) Carry Out Clerk And Shelf Stocker Eos % (Auto) Carry Out Clerk And Shelf Stocker Baso % (Auto) Car[employer] Out Clerk And Shelf Stocker Lymph # Car[employer] Out Clerk And Shelf Stocker [place] # Car[employer] Clerk [employer] Shelf Stocker Eos # Car[employer] Out Clerk And Shelf Stocker Baso # Car[employer] Out Clerk [employer] Shelf Stocker Seg Neutrophils % Car[employer] Out Clerk [employer] Shelf Stocker Seg Neutrophils # Car[employer] Out Clerk And Shelf Stocker PT 13.2 INR 0.95 APTT 25.4 Sodium Potassium Chloride Carbon Dioxide Anion Gap BUN Creatinine Estimated GFR BUN/Creatinine Ratio Glucose POC Glucose 96 Calcium Total Bilirubin AST ALT Alkaline Phosphatase Total Protein Albumin Albumin/Globulin Ratio TSH Urine Color Urine Turbidity Urine pH Ur Specific [place] Urine Protein Urine Glucose (UA) Urine Ketones Urine Blood Urine Nitrite Urine Bilirubin Urine Urobilinogen Ur Leukocyte Esterase Urine WBC (Auto) Urine RBC (Auto) Salicylates Acetaminophen 10/29/18 10/29/18 10/29/18 21:43 21:43 21:43 WBC RBC Hgb Hct MCV MCH MCHC RDW Plt Count Lymph % (Auto) [place] % (Auto) Eos % (Auto) Baso % (Auto) Lymph # [place] # Eos # Baso # Seg Neutrophils % Seg Neutrophils # PT INR APTT Sodium 143 Potassium 4.2 Chloride 106.5 Carbon Dioxide 24 Anion Gap 17 BUN 42 H Creatinine 3.0 H Estimated GFR 24 BUN/Creatinine Ratio 14 Glucose 86 POC Glucose Calcium 9.9 Total Bilirubin 0.30 AST 21 ALT 12 Alkaline Phosphatase 59 Total Protein 7.5 Albumin 4.0 Albumin/Globulin Ratio 1.1 TSH 1.940 Urine Color Urine Turbidity Urine pH Ur Specific [place] Urine Protein Urine Glucose (UA) Urine Ketones Urine Blood Urine Nitrite Urine Bilirubin Urine Urobilinogen Ur Leukocyte Esterase Urine WBC (Auto) Urine RBC (Auto) Salicylates < 0.3 L Acetaminophen 10/29/18 10/29/18 21:43 21:49 WBC RBC Hgb Hct MCV MCH MCHC RDW Plt Count Lymph % (Auto) [place] % (Auto) Eos % (Auto) Baso % (Auto) Lymph # [place] # Eos # Baso # Seg Neutrophils % Seg Neutrophils # PT INR APTT Sodium Potassium Chloride Carbon Dioxide Anion Gap BUN Creatinine Estimated GFR BUN/Creatinine Ratio Glucose POC Glucose Calcium Total Bilirubin AST ALT Alkaline Phosphatase Total Protein Albumin Albumin/Globulin Ratio TSH Urine Color Straw Urine Turbidity Clear Urine pH 7.0 Ur Specific [place] 1.006 Urine Protein 100 mg/dl Urine Glucose (UA) Neg Urine Ketones Neg Urine Blood Neg Urine Nitrite Neg Urine Bilirubin Neg Urine Urobilinogen < 2.0 Ur Leukocyte Esterase Neg Urine WBC (Auto) < 1.0 Urine RBC (Auto) < 1.0 Salicylates Acetaminophen < 5.0 L - EKG Data 10/29/18 22:58 This is a ventricular paced rhythm, with left axis deviation, good capture, minor motion artifact, unchanged from prior EKG from May 2018. This is not consistent with an ST elevation myocardial infarction. - Radiology Data Radiology results: image reviewed interpreted by me: X-ray the chest: Enlarged cardiac silhouette, calcified aortic knob, sternotomy wires noted, mild pulmonary vascular congestion, no acute disease. Critical care attestation.: If time is entered above; I have spent that time in minutes in the direct care of this critically ill patient, excluding procedure time. ED Disposition Clinical Impression: Dementia Disposition: DC-01 TO HOME OR SELFCARE Is pt being admited?: No Does the pt Need Aspirin: No Condition: Good Instructions: Dementia (ED) Additional Instructions: As we discussed, symptoms likely coming from patient's underlying dementia. Unfortunately, there is no cure for this condition, and symptoms will likely get worse. Please follow-up with your primary care doctor or insurance company (contact them and asked to speak to a supportive employment case manager or social professionals) to initiate a discussion regarding shelter care, and whether or not the patient would be appropriate for a home health aide, or placement into a halfway. Continue current outpatient medications, and please follow-up with your primary care doctor or vacuum drum drier operator to reexamine patient taking hydralazine. Patient should follow-up within the next 2 weeks. Please return to the emergency room right away with new, worsening or different symptoms. Referrals: ROSALINE FAULKNER MD [Staff Physician] - as needed [facility] [Provider Group] - as needed JACK COREA MD [Staff Physician] - 7-10 days
[2018-10-29 22:11] LABS: INR 0.95 (0.87-1.13)
[2018-10-29 22:11] LABS: Bilirubin,Urine NEG (Negative); Blood,Urine NEG (Negative); Color,Urine Straw (Yellow); RBC,Urine < 1.0 /HPF (0.0-6.0); Urobilinogen,Urine < 2.0 mg/dL (<2.0); WBC,Urine < 1.0 /HPF (0.0-6.0)
[2018-10-29 22:12] LABS: Partial Thromboplastin Time 25.4 Sec. (24.2-36.6)
[2018-10-29 22:25] LABS: Calcium 9.9 mg/dL (8.4-10.2)
[2018-10-29 22:40] LABS: Hematocrit 31.8 % (35.5-45.6); Hemoglobin 10.3 gm/dl (11.8-15.2); Mean Corpuscular HGB Conc 32 % (32-34); Mean Corpuscular Volume 83 fl (84-94); Platelet Count 140 K/mm3 (140-440); Red Blood Count 3.83 M/mm3 (3.65-5.03); Red Cell Distribution Width 15.7 % (13.2-15.2)
--- NOTE | 2018-10-29 22:59 | Cat Scan Report ---
FINAL REPORT PROCEDURE: CT HEAD/BRAIN WO CON TECHNIQUE: Computerized tomography of the head was performed without contrast material. HISTORY: Altered Mental Status COMPARISON: 11/23/2017 FINDINGS: No CT evidence of intracranial hemorrhage, acute territorial infarction, or hydrocephalus. There is a gain seen a sellar mass. There is white matter low attenuation, compatible with chronic microvascular ischemic changes. Paranasal sinuses and mastoids are aerated. Calvarium is intact. IMPRESSION: No CT evidence of acute intracranial abnormality. Sellar mass appears grossly stable.
--- NOTE | 2018-10-29 23:00 | XRay Report ---
FINAL REPORT PROCEDURE: XR CHEST 1V AP TECHNIQUE: Chest radiograph anteroposterior view. CPT 89947 HISTORY: hallucinations ams COMPARISON: No prior studies are available for comparison. FINDINGS: Heart: Normal. Mediastinum/Vessels: Tortuous or ectatic aorta. Lungs/Pleural space: No infiltrate, effusion, or pneumothorax. Bony thorax: No acute osseous abnormality. Life support devices: Dual lead left-sided pacemaker. IMPRESSION: Tortuous or ectatic aorta
[2018-10-29 23:24] VITALS: BP 171/79
== END 2018-10-29 23:27 | disposition home or self-care (01) ==
LOC: ED 21:00
DX: F03.90 Unspecified dementia, unspecified severity, without behavioral disturbance, psychotic disturbance, mood disturbance, and anxiety (principal); I13.0 Hypertensive heart and chronic kidney disease with heart failure and stage 1 through stage 4 chronic kidney disease, or unspecified chronic kidney disease; N18.4 Chronic kidney disease, stage 4 (severe); I50.9 Heart failure, unspecified
CPT/HCPCS: 36415; 70450; 71045; 80053; 81001; 82550; 82962; 83735; 84443; 85025; 85610; 85730; 87086; 93005; 93010; 99285; G0480; 80320

== ENCOUNTER 2019-02-25 14:42 | Inpatient (IN) | payer MEDICARE ==
--- NOTE | 2019-02-25 14:51 | Event Note ---
ED Screening Note ED Screening Note: SENT BY MD FOR ADMIT FOR A/C KD AND HD This initial assessment/diagnostic orders/clinical plan/treatment(s) is/are subject to change based on patients health status, clinical progression and re- assessment by fellow clinical providers in the ED. Further treatment and workup at subsequent clinical providers discretion. Patient/guardian urged not to elope from the ED as their condition may be serious if not clinically assessed and managed. Initial orders include:
[2019-02-25 15:00] LABS: Basophils % (Auto) 0.7 % (0.0-1.8); Eosinophils # (Auto) 0.2 K/mm3 (0.0-0.4); Eosinophils % (Auto) 6.5 % (0.0-4.3); Hematocrit 31.2 % (35.5-45.6); Hemoglobin 10.2 gm/dl (11.8-15.2); Lymphocytes # (Auto) 1.1 K/mm3 (1.2-5.4); Lymphocytes % (Auto) 34.2 % (13.4-35.0); Mean Corpuscular HGB Conc 33 % (32-34); Mean Corpuscular Volume 86 fl (84-94); Monocytes # (Auto) 0.4 K/mm3 (0.0-0.8); Monocytes % (Auto) 12.9 % (0.0-7.3); Platelet Count 118 K/mm3 (140-440); Red Blood Count 3.62 M/mm3 (3.65-5.03)
[2019-02-25 15:23] LABS: Albumin 4.2 g/dL (3.9-5)
--- NOTE | 2019-02-25 16:22 | Emergency Department Report ---
HPI - General Chief Complaint: Recheck/Abnormal Lab/Rx Time Seen by Provider: 02/25/19 14:49 - HPI HPI: 83-year-old male sent to ED by video effects editor who observed that his kidney function is progressively been worsening, to the point that he might need dial ysis. His GFR is 16, which is a drop program, deformity was advised to come to ED for further treatment, evaluation, and admission. ED Past Medical Hx - Past Medical History Hx Hypertension: Yes Hx Heart Attack/AMI: No Hx Congestive Heart Failure: No Hx Seizures: Yes (as a child under 1 yr old) Hx HIV: No - Surgical History Hx Open Heart Surgery: Yes (CABG) Hx Pacemaker: Yes (new implant 10/11/16) - Social History Smoking Status: Never Smoker Substance Use Type: None - Medications Home Medications: Home Medications Medication Instructions Recorded Confirmed Last Taken Type Amlodipine Besylate 10 mg PO DAILY 10/11/16 11/22/17 09/04/17 History Aspirin EC 81 mg PO DAILY 10/11/16 11/22/17 09/04/17 History Clopidogrel Bisulfate [Clopidogrel] 75 mg PO DAILY 10/11/16 11/22/17 09/04/17 History Famotidine 20 mg PO BID 10/11/16 11/22/17 09/04/17 History Lovastatin 40 mg PO HS 10/11/16 11/22/17 09/04/17 History Metoprolol Tartrate 50 mg PO BID 10/11/16 11/22/17 09/04/17 History Vit D3/Folic Acid/B2/B6/B12 1 each PO DAILY 10/11/16 11/22/17 09/04/17 History [Folgard Tablet] Calcitriol [Rocaltrol] 0.25 mcg PO DAILY 09/05/17 11/22/17 09/04/17 History Sodium Bicarbonate 10 mg PO BID 11/11/17 11/22/17 Unknown History hydrALAZINE [Apresoline TAB] 25 mg PO Q8H #90 tablet 11/27/17 Unknown Rx levETIRAcetam [Keppra TAB] 1,500 mg PO BID #60 tablet 11/27/17 Unknown Rx Ondansetron [Zofran Odt] 4 mg PO Q8HR PRN #14 tab.rapdis 06/09/18 Unknown Rx ED Review of Systems ROS: Stated complaint: ABDNORMAL KIDNEY FUNCTION Other details as noted in HPI Comment: All other systems reviewed and negative ENT: denies: throat pain Respiratory: denies: cough, orthopnea Cardiovascular: denies: dyspnea on exertion Endocrine: denies: flushing Genitourinary: denies: urgency, dysuria Physical Exam - Physical Exam Vital Signs: Vital Signs 02/25/19 02/25/19 14:47 16:02 Temperature 97.4 F L 98.0 F Pulse Rate 60 58 L Respiratory 18 18 Rate Blood Pressure 156/84 Blood Pressure 172/80 [Left] O2 Sat by Pulse 98 100 Oximetry Physical Exam: - General Limitations: No Limitations General appearance: alert, in no apparent distress - Head Head exam: Present: atraumatic, normocephalic - Eye Eye exam: Present: normal appearance - ENT ENT exam: Present: mucous membranes moist - Neck Neck exam: Present: normal inspection - Respiratory Respiratory exam: Present: normal lung sounds bilaterally. Absent: respiratory distress - Cardiovascular Cardiovascular Exam: Present: normal rhythm. Absent: systolic murmur, diastolic murmur, rubs, gallop - GI/Abdominal GI/Abdominal exam: Present: soft, normal bowel sounds - Extremities Exam Extremities exam: Present: normal inspection - Back Exam Back exam: Present: normal inspection - Neurological Exam Neurological exam: Present: alert, oriented X3 - Psychiatric Psychiatric exam: normal affect and mood - Skin Skin exam: Present: warm, dry, intact, normal color. Absent: rash ED Course Vital Signs 02/25/19 02/25/19 14:47 16:02 Temperature 97.4 F L 98.0 F Pulse Rate 60 58 L Respiratory 18 18 Rate Blood Pressure 156/84 Blood Pressure 172/80 [Left] O2 Sat by Pulse 98 100 Oximetry ED Medical Decision Making - Lab Data Result diagrams: 02/25/19 14:50 02/25/19 14:50 Critical care attestation.: If time is entered above; I have spent that time in minutes in the direct care of this critically ill patient, excluding procedure time. ED Disposition Clinical Impression: Acute renal failure superimposed on stage 4 chronic kidney disease Qualifiers: Acute renal failure type: unspecified Qualified Code(s): N17.9 - Acute kidney failure, unspecified; N18.4 - Chronic kidney disease, stage 4 (severe) Disposition: DC-09 OP ADMIT IP TO THIS HOSP Is pt being admited?: Yes Does the pt Need Aspirin: No Condition: Stable
[2019-02-25 19:05] LABS: Creatinine,Urine 29.9 mg/dL (0.1-20.0)
[2019-02-25 19:08] LABS: Bacteria,Urine 1+ /HPF (Negative); Bilirubin,Urine NEG (Negative); Blood,Urine NEG (Negative); Color,Urine Straw (Yellow); Urobilinogen,Urine < 2.0 mg/dL (<2.0)
--- NOTE | 2019-02-25 19:26 | XRay Report ---
PROCEDURE: XR CHEST 1V AP TECHNIQUE: Chest radiograph single view. HISTORY: sob COMPARISONS: None . FINDINGS: Single frontal view of the chest was acquired and compared to the prior examination of 2017. There is cardiomegaly. There is a pacing device with leads in right atrium and ventricle. There is no evidence of congestive heart failure. IMPRESSION: Cardiomegaly This document is electronically signed by Adilson Saleh MD., February 25 2019 07:24:24 PM ET
[2019-02-25] MEDS ORDERED: ZOFRAN IV PRN (21:11)
[2019-02-25] MEDS ORDERED: TYLENOL PO PRN (21:11)
[2019-02-25] MEDS ORDERED: SODIUM CHLORIDE FLUSH SYRINGE 10 ML IV PRN (21:11)
[2019-02-25] MEDS ORDERED: DILAUDID IV PRN (21:11)
[2019-02-25] MEDS ORDERED: PERCOCET 5/325 PO PRN (21:11)
[2019-02-25] MEDS ORDERED: NON-FORMULARY (Lovastatin [Lovastatin] 40 MG) PO SCH (22:00)
[2019-02-25] MEDS ORDERED: PEPCID PO SCH (22:00)
[2019-02-25] MEDS ORDERED: APRESOLINE PO SCH (22:00)
[2019-02-25] MEDS: HEPARIN SUB-Q SCH (22:18)
[2019-02-25] MEDS: KEPPRA PO SCH (22:18)
[2019-02-25] MEDS: PRAVACHOL PO SCH (22:18)
[2019-02-25] MEDS: PEPCID PO SCH (22:19)
[2019-02-25] MEDS: APRESOLINE PO SCH (22:19)
[2019-02-25] MEDS: LOPRESSOR PO SCH (22:19)
[2019-02-25] MEDS: SODIUM CHLORIDE FLUSH SYRINGE 10 ML IV SCH (22:20)
[2019-02-25] MEDS: NORVASC PO SCH (22:23)
[2019-02-25] MEDS: PLAVIX PO SCH (22:23)
[2019-02-25] MEDS: HALFPRIN EC PO SCH (22:23)
[2019-02-26] MEDS ORDERED: LASIX PO SCH (06:00)
[2019-02-26 06:22] LABS: Eosinophils # (Auto) 0.3 K/mm3 (0.0-0.4); Eosinophils % (Auto) 10.1 % (0.0-4.3); Hematocrit 31.3 % (35.5-45.6); Hemoglobin 10.4 gm/dl (11.8-15.2); Lymphocytes # (Auto) 0.9 K/mm3 (1.2-5.4); Lymphocytes % (Auto) 32.9 % (13.4-35.0); Mean Corpuscular HGB Conc 33 % (32-34); Mean Corpuscular Volume 87 fl (84-94); Monocytes # (Auto) 0.4 K/mm3 (0.0-0.8); Monocytes % (Auto) 15.3 % (0.0-7.3); Platelet Count 131 K/mm3 (140-440); Red Blood Count 3.62 M/mm3 (3.65-5.03); Red Cell Distribution Width 14.7 % (13.2-15.2)
[2019-02-26 07:08] LABS: Albumin 3.7 g/dL (3.9-5); Calcium 9.5 mg/dL (8.4-10.2)
--- NOTE | 2019-02-26 07:12 | Event Note ---
Date: 02/25/19 CKD---to ESRD For possible HD See H/p in reports
--- NOTE | 2019-02-26 07:50 | History and Physical Report ---
CHIEF COMPLAINT: 1. Increased creatinine. 2. Sent by his executive officer special warfare team for possible hemodialysis. HISTORY OF PRESENT ILLNESS: An 83-year-old male with worsening kidney function, being treated for chronic kidney disease. Today, the executive officer special warfare team has noted that the GFR has decreased significantly to 16 from around mid 30s, hence sent him to the Emergency Room for possible hemodialysis. PAST MEDICAL HISTORY: Significant for hypertension, coronary artery disease, gastroesophageal reflux disease, hyperlipidemia, vitamin D deficiency and seizure disorder. PAST SURGICAL HISTORY: Open heart surgery in the past and new pacemaker. SOCIAL HISTORY: Does not smoke. No alcohol. No recreational drugs. FAMILY HISTORY: Significant for hypertension. CURRENT MEDICATIONS: On the chart. REVIEW OF SYSTEMS: Significant for increasing weakness and worsening kidney function. Otherwise, review of systems negative. PHYSICAL EXAMINATION: GENERAL: Elderly male, cooperative during examination. VITAL SIGNS: Temperature 97.4, pulse is 60, respirations 18, blood pressure 156/84. HEENT: Unremarkable. Pupils equal and reactive. NECK: Supple, no lymphadenopathy, no thyromegaly. LUNGS: Clear to auscultation and percussion. Good air entry. CARDIOVASCULAR: S1, S2 heard. No gallop, no murmur, no rub. Apical impulse in left fifth intercostal space and midclavicular line. ABDOMEN: Soft and benign. No hepatosplenomegaly. No guarding, no rigidity. Hernial orifices are normal. EXTREMITIES: Good pedal pulses. No pedal edema. CENTRAL NERVOUS SYSTEM: Alert and oriented x 4, nonfocal exam. SKIN: Normal. LABORATORY DATA: Significant for white count of 3300, H and H is 10.2 and 31.2, platelet count is 118,000. Electrolytes are normal except for BUN and creatinine of 58 and 4.4, estimated GFR is 16. BNP is 2836. Urine creatinine is 29.9. EKG shows sinus bradycardia, left bundle branch block, heart rate of 55 per minute. Chest x-ray shows cardiomegaly. ASSESSMENT AND PLAN: 1. New onset end-stage renal disease. The patient may need hemodialysis. We will defer to Nephrology regarding Vas-Cath and possible hemodialysis. 2. Coronary artery disease. Continue Plavix. 3. Gastroesophageal reflux disease. Continue famotidine. 4. Hyperlipidemia. Continue lovastatin. 5. Seizure disorder. Continue Keppra. 6. Deep venous thrombosis prophylaxis. Heparin 5000 q. 12. JOB# [id number] JOLENE/VALE CONNOLLY
[2019-02-26] MEDS ORDERED: NON-FORMULARY (Furosemide 40 MG) PO SCH (08:00)
--- NOTE | 2019-02-26 08:27 | Progress Note ---
Assessment and Plan Assessment and plan: Patient is a 83 yo man with a history of CAD s/p CABG, PPM, hypertension, dementia and childhood sz who presents with worsening renal function from Dr. [employer] office New ESRD: HD initiation per Nephrology Acute metabolic encephalopathy: treat the renal failure CAD: continue plavix GERD: continue pepcid Dyslipidemia: statin Seizure disorder: continue Keppra and monitor closely History Interval history: Patient was seen and examined. Follow-up on current diagnosis. No overnight events reported to me. Patient denies any chest pain, shortness breath, nausea/vomiting or severe headaches. Imaging, nursing note, chart, labs and old chart reviewed. Discussed with patient. Hospitalist Physical - Physical exam Narrative exam: Gen: WDWN, NAD, Awake, Alert, Orientated HEENT: NCAT, EOMI, PERRL, OP Clear Neck: supple, no adenopathy, no thyromegaly, no JVD CVS/Heart: RRR, normal S1S2, pulses present bilaterally Chest/Lungs: CTA B, Symmetrical chest expansion, good air entry bilaterally GI/Abdomen: soft, NTND, good bowel sounds, no guarding or rebound /Bladder: no suprapubic tenderness, no CVA or paraspinal tenderness Extermity/Skin: no c/c/e, no obvious rash MSK: FROM x 4 Neuro: CN 2-12 grossly intact, no new focal deficits Psych: calm - Constitutional Vitals: Temp Pulse Resp BP Pulse Ox 97.4 F L 50 L 18 158/83 100 02/26/19 04:56 02/26/19 04:52 02/26/19 04:52 02/26/19 04:52 02/26/19 04:52 Results - Labs CBC & Chem 7: 02/26/19 05:55 02/26/19 05:55 Labs: Laboratory Last Values WBC 2.7 K/mm3 (4.5-11.0) L 02/26/19 05:55 RBC 3.62 M/mm3 (3.65-5.03) L 02/26/19 05:55 Hgb 10.4 gm/dl (11.8-15.2) L 02/26/19 05:55 Hct 31.3 % (35.5-45.6) L 02/26/19 05:55 MCV 87 fl (84-94) 02/26/19 05:55 MCH 29 pg (28-32) 02/26/19 05:55 MCHC 33 % (32-34) 02/26/19 05:55 RDW 14.7 % (13.2-15.2) 02/26/19 05:55 Plt Count 131 K/mm3 (140-440) L 02/26/19 05:55 Lymph % (Auto) 32.9 % (13.4-35.0) 02/26/19 05:55 [place] % (Auto) 15.3 % (0.0-7.3) H 02/26/19 05:55 Eos % (Auto) 10.1 % (0.0-4.3) H 02/26/19 05:55 Baso % (Auto) 1.0 % (0.0-1.8) 02/26/19 05:55 Lymph # 0.9 K/mm3 (1.2-5.4) L 02/26/19 05:55 [place] # 0.4 K/mm3 (0.0-0.8) 02/26/19 05:55 Eos # 0.3 K/mm3 (0.0-0.4) 02/26/19 05:55 Baso # 0.0 K/mm3 (0.0-0.1) 02/26/19 05:55 Seg Neutrophils % 40.7 % (40.0-70.0) 02/26/19 05:55 Seg Neutrophils # 1.1 K/mm3 (1.8-7.7) L 02/26/19 05:55 Sodium 142 mmol/L (137-145) 02/26/19 05:55 Potassium 4.0 mmol/L (3.6-5.0) 02/26/19 05:55 Chloride 104.6 mmol/L (98-107) 02/26/19 05:55 Carbon Dioxide 22 mmol/L (22-30) 02/26/19 05:55 19 mmol/L 02/26/19 05:55 BUN 56 mg/dL (9-20) H 02/26/19 05:55 4.2 mg/dL (0.8-1.5) H 02/26/19 05:55 Estimated GFR 16 ml/min 02/26/19 05:55 13 % 02/26/19 05:55 Glucose 101 mg/dL (75-100) H 02/26/19 05:55 5.4 % (4-6) 02/25/19 21:47 Calcium 9.5 mg/dL (8.4-10.2) 02/26/19 05:55 Phosphorus 4.30 mg/dL (2.5-4.5) 02/25/19 14:50 0.40 mg/dL (0.1-1.2) 02/26/19 05:55 AST 17 units/L (5-40) 02/26/19 05:55 ALT 7 units/L (7-56) 02/26/19 05:55 49 units/L (35-129) 02/26/19 05:55 NT-Pro-B Natriuret Pep 2836 pg/mL (0-900) H 02/25/19 14:55 7.2 g/dL (6.3-8.2) 02/26/19 05:55 3.7 g/dL (3.9-5) L 02/26/19 05:55 1.1 % 02/26/19 05:55 Straw (Yellow) 02/25/19 18:35 Clear (Clear) 02/25/19 18:35 7.0 (5.0-7.0) 02/25/19 18:35 Ur Specific [place] 1.008 (1.003-1.030) 02/25/19 18:35 30 mg/dl mg/dL (Negative) 02/25/19 18:35 Neg mg/dL (Negative) 02/25/19 18:35 Neg mg/dL (Negative) 02/25/19 18:35 Neg (Negative) 02/25/19 18:35 Neg (Negative) 02/25/19 18:35 Neg (Negative) 02/25/19 18:35 < 2.0 mg/dL (<2.0) 02/25/19 18:35 Ur Leukocyte Esterase Neg (Negative) 02/25/19 18:35 1.0 /HPF (0.0-6.0) 02/25/19 18:35 1.0 /HPF (0.0-6.0) 02/25/19 18:35 1+ /HPF (Negative) 02/25/19 18:35 29.9 mg/dL (0.1-20.0) H 02/25/19 18:35 112 mmol/L 02/25/19 18:35 Active Medications - Current Medications Current Medications: Generic Name Dose Route Start Last Admin Trade Name Freq PRN Reason Stop Dose Admin Acetaminophen 650 mg 02/25/19 21:11 Tylenol PO Q4H PRN Pain MILD(1-3)/Fever >100.5/ZIMMERMAN Amlodipine Besylate 10 mg 02/25/19 22:00 02/25/19 22:23 Norvasc PO 10 mg DAILY DAVID Administration Aspirin 81 mg 02/25/19 22:00 02/25/19 22:23 Halfprin Ec PO 81 mg DAILY DAVID Administration Clopidogrel Bisulfate 75 mg 02/25/19 22:00 02/25/19 22:23 Plavix PO 75 mg DAILY DAVID Administration Famotidine 10 mg 02/25/19 22:00 02/25/19 22:19 Pepcid PO 10 mg BID DAVID Administration Furosemide 40 mg 02/26/19 06:00 02/26/19 05:26 Lasix PO 40 mg DAILY@0600 DAVID Administration Heparin Sodium (Porcine) 5,000 unit 02/25/19 22:00 02/25/19 22:18 Heparin SUB-Q 5,000 unit Q12HR DAVID Administration Hydralazine HCl 100 mg 02/25/19 22:00 02/25/19 22:19 Apresoline PO 100 mg BID DAVID Administration Hydromorphone HCl 0.5 mg 02/25/19 21:11 Dilaudid IV Q3H PRN Pain , Severe (7-10) Levetiracetam 750 mg 02/25/19 22:00 02/25/19 22:18 Keppra PO 750 mg BID DAVID Administration Metoprolol Tartrate 50 mg 02/25/19 22:00 02/25/19 22:19 Lopressor PO 50 mg BID DAVID Administration Ondansetron HCl 4 mg 02/25/19 21:11 Zofran IV Q8H PRN Nausea And Vomiting Oxycodone/Acetaminophen 1 tab 02/25/19 21:11 Percocet 5/325 PO Q6H PRN Pain, Moderate (4-6) Pravastatin Sodium 40 mg 02/25/19 22:00 02/25/19 22:18 Pravachol PO 40 mg QHS DAVID Administration Sodium Chloride 10 ml 02/25/19 22:00 02/25/19 22:20 Sodium Chloride Flush Syringe 10 Ml IV 10 ml BID DAVID Administration Sodium Chloride 10 ml 02/25/19 21:11 Sodium Chloride Flush Syringe 10 Ml IV PRN PRN LINE FLUSH
[2019-02-26] MEDS: NORVASC PO SCH (09:27)
[2019-02-26] MEDS: PLAVIX PO SCH (09:27)
[2019-02-26] MEDS: PEPCID PO SCH ×2 (09:27→21:04)
[2019-02-26] MEDS: LOPRESSOR PO SCH ×2 (09:27→21:04)
[2019-02-26] MEDS: HALFPRIN EC PO SCH (09:27)
[2019-02-26] MEDS: APRESOLINE PO SCH ×2 (09:27→21:04)
[2019-02-26] MEDS: KEPPRA PO SCH ×2 (09:28→21:04)
[2019-02-26] MEDS: HEPARIN SUB-Q SCH ×2 (09:28→21:04)
--- NOTE | 2019-02-26 11:02 | Consultation ---
History of Present Illness - Reason for Consult chronic renal failure - History of Present Illness 83-year-old with medical history significant for hypertension, chronic kidney disease stage IV admitted due to concern for worsening renal function according to the patient has baseline dementia also has history of seizures denies any nausea or vomiting abdominal pain denies any change in taste however this morning patient's a little more confused than usual upper however he was fine earlier this morning before becoming less responsive prior to my arrival his does report significant dementia and therefore his baseline mental status is not great no seizure activity noted by nurses he does obey commands. Past History Past Surgical History: No surgical history Social history: no significant social history Family history: no significant family history Medications and Allergies Allergies Allergy/AdvReac Type Severity Reaction Status Date / Time No Known Allergies Allergy Verified 02/25/19 14:44 Home Medications Medication Instructions Recorded Confirmed Last Taken Type Amlodipine Besylate 10 mg PO DAILY 10/11/16 11/22/17 09/04/17 History Aspirin EC 81 mg PO DAILY 10/11/16 02/25/19 02/24/19 History Clopidogrel Bisulfate [Clopidogrel] 75 mg PO DAILY 10/11/16 02/25/19 02/24/19 History Famotidine 40 mg PO BID 10/11/16 02/25/19 02/24/19 History Lovastatin 40 mg PO HS 10/11/16 02/25/19 02/24/19 History Metoprolol Tartrate 50 mg PO BID 10/11/16 02/25/19 02/24/19 History Vit D3/Folic Acid/B2/B6/B12 1 each PO DAILY 10/11/16 11/22/17 09/04/17 History [Folgard Tablet] Sodium Bicarbonate 650 mg PO TID 11/11/17 02/25/19 02/24/19 History Ondansetron [Zofran Odt] 4 mg PO Q8HR PRN #14 tab.rapdis 06/09/18 02/25/19 Unknown Rx Furosemide 40 mg PO QDAC 02/25/19 02/25/19 02/24/19 History hydrALAZINE [Apresoline TAB] 100 mg PO BID 02/25/19 02/25/19 02/24/19 History levETIRAcetam [Keppra TAB] 750 mg PO BID 02/25/19 02/25/19 02/24/19 History Active Meds: Active Medications Acetaminophen (Tylenol) 650 mg PO Q4H PRN PRN Reason: Pain MILD(1-3)/Fever >100.5/[place] Amlodipine Besylate (Norvasc) 10 mg PO DAILY [facility] Last Admin: 02/26/19 09:27 Dose: 10 mg Documented by: Aspirin (Halfprin Ec) 81 mg PO DAILY [facility] Last Admin: 02/26/19 09:27 Dose: 81 mg Documented by: Clopidogrel Bisulfate (Plavix) 75 mg PO DAILY [facility] Last Admin: 02/26/19 09:27 Dose: 75 mg Documented by: Famotidine (Pepcid) 10 mg PO BID [facility] Last Admin: 02/26/19 09:27 Dose: 10 mg Documented by: Furosemide (Lasix) 40 mg PO DAILY@0600 [facility] Last Admin: 02/26/19 05:26 Dose: 40 mg Documented by: Heparin Sodium (Porcine) (Heparin) 5,000 unit SUB-Q Q12HR [facility] Last Admin: 02/26/19 09:28 Dose: 5,000 unit Documented by: Hydralazine HCl (Apresoline) 100 mg PO BID [facility] Last Admin: 02/26/19 09:27 Dose: 100 mg Documented by: Hydromorphone HCl (Dilaudid) 0.5 mg IV Q3H PRN PRN Reason: Pain , Severe (7-10) Levetiracetam (Keppra) 750 mg PO BID [facility] Last Admin: 02/26/19 09:28 Dose: 750 mg Documented by: Metoprolol Tartrate (Lopressor) 50 mg PO BID [facility] Last Admin: 02/26/19 09:27 Dose: 50 mg Documented by: Ondansetron HCl (Zofran) 4 mg IV Q8H PRN PRN Reason: Nausea And Vomiting Oxycodone/Acetaminophen (Percocet 5/325) 1 tab PO Q6H PRN PRN Reason: Pain, Moderate (4-6) Pravastatin Sodium (Pravachol) 40 mg PO QHS [facility] Last Admin: 02/25/19 22:18 Dose: 40 mg Documented by: Sodium Chloride (Sodium Chloride Flush Syringe 10 Ml) 10 ml IV BID [facility] Last Admin: 02/25/19 22:20 Dose: 10 ml Documented by: Sodium Chloride (Sodium Chloride Flush Syringe 10 Ml) 10 ml IV PRN PRN PRN Reason: LINE FLUSH Review of Systems Constitutional: fatigue, weakness, no weight loss, no weight gain Ears, nose, mouth and throat: no deferred, no ear pain Respiratory: no cough, no cough with sputum Gastrointestinal: no abdominal pain, no nausea, no vomiting Genitourinary Male: no dysuria, no hematuria Rectal: no pain Musculoskeletal: no neck stiffness, no neck pain Neurological: seizures Psychiatric: no anxiety, no memory loss Exam - Vital Signs Vital signs: Vital Signs Temp Pulse Resp BP Pulse Ox 97.4 F L 60 18 156/84 98 02/25/19 14:47 02/25/19 14:47 02/25/19 14:47 02/25/19 14:47 02/25/19 14:47 - General Appearance General appearance: appears stated age, frail, anxious EENT: ATNC, PERRL Neck: Present: neck supple Respiratory: Decreased Breath Sounds Heart: regular, S1S2 Gastrointestinal: Present: normal, normoactive bowel sounds Integumentary: no rash Neurologic: other (less responsive, history of seizures, obeys commands. ) Musculoskeletal: Present: deferred Psychiatric: mood/affect appropriate Results - Lab Results 02/26/19 05:55 02/26/19 05:55 Most recent lab results Calcium 9.5 mg/dL (8.4-10.2) 02/26/19 05:55 Phosphorus 4.30 mg/dL (2.5-4.5) 02/25/19 14:50 29.9 mg/dL (0.1-20.0) H 02/25/19 18:35 112 mmol/L 02/25/19 18:35 - Image Kidney/bladder ultrasound: other (I reviewed CXR with hazy opacities adn cardiom egaly. ) Assessment and Plan - Patient Problems (1) Acute renal failure superimposed on stage 4 chronic kidney disease Current Visit: Yes Status: Acute Qualifiers: Acute renal failure type: unspecified Qualified Code(s): N17.9 - Acute kidney failure, unspecified; N18.4 - Chronic kidney disease, stage 4 (severe) Plan to address problem: Acute renal failure on CKD stage 4 baseline creatinine flunctutes between 3-3.5mg/dl creatinine on admission 4.4mg/dl current creatinine : 4.2mg/dl non oliguric Will obtain renal US Discussed in detail with has some dementia at baseline and mental status wa xes and wanes No acute electrolyte abnormalities and creatinine is not worsening today. Will obtain 24hr urine collection for creatinine to assess renal function and determine need for dialysis CXR reviewed with cardiomegaly and some pulmonary congestion Will give Lasix 40mg IV daily for now. (2) Dementia Current Visit: No Status: Chronic Plan to address problem: Dementia waxing and waning mental status at risk for delireum Will monitor closely Patient had some lethargy in the morning but improved this afternoon doubt this is primarily secondary to metabolic causes. 24hr urine collection pending. (3) HTN (hypertension) Current Visit: No Status: Chronic Plan to address problem: HTN: uncontrolled. Ensure medications. (4) Metabolic acidosis Current Visit: Yes Status: Acute Plan to address problem: Mild Metabolic acidosis : 2/2 CKD sodium bicarb 650mg bid.
[2019-02-26] MEDS ORDERED: LASIX IV ONE (12:03)
[2019-02-26] MEDS: SODIUM CHLORIDE FLUSH SYRINGE 10 ML IV SCH ×2 (13:03→21:05)
--- NOTE | 2019-02-26 13:39 | Ultrasound Report ---
ULTRASOUND RENAL BILATERAL HISTORY: Acute kidney insufficiency. TECHNIQUE: transabdominal ultrasound with color Doppler interrogation. FINDINGS: The right kidney measures 10.2 a 5.7 x 4.8cm. Right renal cortex: 1.1cm. The left kidney measures 9.3 x 3.6 x 4.7cm. Left renal cortex: 1.2cm. There is mild increased renal cortical echotexture consistent with nonspecific renal parenchymal disease. There are multiple bilateral simple appearing renal cysts. The largest cyst measures 5.0 cm in the superior right kidney. Scattered echogenic foci are also identified in both kidneys consistent with nonobstructing stones. No evidence for renal mass or hydronephrosis. Images of the bladder are unremarkable. IMPRESSION: Nonspecific renal parenchymal disease. Bilateral renal cysts. Bilateral nonobstructing renal stones.
[2019-02-26] MEDS: PRAVACHOL PO SCH (21:04)
[2019-02-27] MEDS: LASIX IV SCH (05:20)
[2019-02-27 10:30] LABS: Basophils % (Auto) 0.4 % (0.0-1.8); Eosinophils # (Auto) 0.1 K/mm3 (0.0-0.4); Hematocrit 34.1 % (35.5-45.6); Hemoglobin 11.2 gm/dl (11.8-15.2); Lymphocytes % (Auto) 23.7 % (13.4-35.0); Mean Corpuscular HGB Conc 33 % (32-34); Mean Corpuscular Volume 85 fl (84-94); Monocytes # (Auto) 0.5 K/mm3 (0.0-0.8); Monocytes % (Auto) 11.5 % (0.0-7.3); Platelet Count 157 K/mm3 (140-440); Red Blood Count 4.01 M/mm3 (3.65-5.03); Red Cell Distribution Width 14.7 % (13.2-15.2)
[2019-02-27 10:43] LABS: INR 1.04 (0.87-1.13)
[2019-02-27] MEDS: HEPARIN SUB-Q SCH ×2 (11:10→22:49)
[2019-02-27] MEDS: SODIUM CHLORIDE FLUSH SYRINGE 10 ML IV SCH ×2 (11:15→22:51)
[2019-02-27] MEDS: KEPPRA PO SCH ×2 (11:47→22:49)
[2019-02-27] MEDS: PLAVIX PO SCH (11:47)
[2019-02-27] MEDS: PEPCID PO SCH ×2 (11:50→22:49)
[2019-02-27] MEDS: HALFPRIN EC PO SCH (11:50)
[2019-02-27] MEDS: LOPRESSOR PO SCH (12:02)
[2019-02-27] MEDS: APRESOLINE PO SCH (12:02)
[2019-02-27] MEDS: NORVASC PO SCH (12:03)
--- NOTE | 2019-02-27 12:13 | Progress Note ---
Subjective Interval history: Patient was seen today for follow-up on multiple renal related issues Events of this hospitalization noted Creatinine is stable currently on Lasix Is being followed in our office Patient denies having any chest pain pressure or shortness of breath Vitals labs intake output medications were reviewed Social history: Reviewed Allergies: Reviewed Family history: Reviewed Physical examination HEENT: Oral mucosa moist no pallor or icterus Neck: Supple no JVD Chest: Clear to auscultation anteriorly CVS: Regular rate and rhythm S1 and S2 heard Abdomen: Soft nontender no suprapubic masses no organomegaly appreciable Extremity: Dry skin less than 1+ peripheral edema Musculoskeletal: No joint effusion noted in knees and ankle Neurological: Alert awake Dermatology: No petechial rashes Psychiatry: No evidence of any agitation and aggression noted Assessment and plan; Renal failure severe in a patient his baseline creatinine has been around 3 as of October 2018 patient is high risk for progression in the past November 2017 his creatinine has been as high as 4.0 Is currently being treated with Lasix for fluid issues creatinine is somewhat better will monitor and follow, currently being followed by my partner in the office With his age and multiple comorbidities he may not be a suitable candidate for long-term dialysis Renal ultrasonogram obtained February 26 shows evidence of echogenic kidneys bilateral renal cysts suggestive of chronic kidney disease small Is no emergent indication for renal replacement therapy creatinine is a little better today maintain hydration follow-up on renal function is not a candidate for VITO inhibitor or angiotensin receptor sehll Strict intake and output monitoring should be done Will check labs tomorrow morning Anemia with renal failure current hemoglobin is around 11.2 satisfactory platelet count was 1 31,000 currently at 157 will need follow-up on the hemoglobin as well as CBC History of underlying dementia, seizure disorder, coronary artery disease status post coronary to bypass graft, pacemaker placement, Admitted with altered mental status more confusion and less responsiveness History of hypertension, would not give any form of VITO inhibitor or angiotensin receptor shell We'll continue to follow and make recommendation from renal standpoint Objective - Vital Signs Vital signs: Vital Signs - 12hr 02/27/19 02/27/19 02/27/19 04:27 04:35 07:47 Temperature 97.8 F 97.7 F Pulse Rate 77 69 Respiratory 20 16 Rate Blood Pressure 152/85 146/80 Blood Pressure [Left] O2 Sat by Pulse 100 100 Oximetry 02/27/19 02/27/19 02/27/19 10:00 12:02 12:03 Temperature Pulse Rate 68 68 68 Respiratory Rate Blood Pressure 116/68 116/68 Blood Pressure 116/68 [Left] O2 Sat by Pulse 100 Oximetry - Lab 02/27/19 10:15 02/26/19 05:55 Most recent lab results Calcium 9.5 mg/dL (8.4-10.2) 02/26/19 05:55 Phosphorus 4.30 mg/dL (2.5-4.5) 02/25/19 14:50 29.9 mg/dL (0.1-20.0) H 02/25/19 18:35 112 mmol/L 02/25/19 18:35 Medications & Allergies - Medications Allergies/Adverse Reactions: Allergies No Known Allergies Allergy (Verified 02/25/19 14:44) Home Medications: Home Medications Medication Instructions Recorded Confirmed Last Taken Type Amlodipine Besylate 10 mg PO DAILY 10/11/16 02/26/19 09/04/17 History Aspirin EC 81 mg PO DAILY 10/11/16 02/26/19 02/24/19 History Clopidogrel Bisulfate [Clopidogrel] 75 mg PO DAILY 10/11/16 02/26/19 02/24/19 History Famotidine 40 mg PO BID 10/11/16 02/26/19 02/24/19 History Lovastatin 40 mg PO HS 10/11/16 02/26/19 02/24/19 History Metoprolol Tartrate 50 mg PO BID 10/11/16 02/26/19 02/24/19 History Vit D3/Folic Acid/B2/B6/B12 1 each PO DAILY 10/11/16 02/26/19 09/04/17 History [Folgard Tablet] Sodium Bicarbonate 650 mg PO TID 11/11/17 02/26/19 02/24/19 History Ondansetron [Zofran Odt] 4 mg PO Q8HR PRN #14 tab.rapdis 06/09/18 02/26/19 Unknown Rx Furosemide 40 mg PO QDAC 02/25/19 02/26/19 02/24/19 History hydrALAZINE [Apresoline TAB] 100 mg PO BID 02/25/19 02/26/19 02/24/19 History levETIRAcetam [Keppra TAB] 750 mg PO BID 02/25/19 02/26/19 02/24/19 History Active Medications: Generic Name Dose Route Start Last Admin Trade Name Freq PRN Reason Stop Dose Admin Acetaminophen 650 mg 02/25/19 21:11 Tylenol PO Q4H PRN Pain MILD(1-3)/Fever >100.5/[place]IMMERMAN Amlodipine Besylate 10 mg 02/25/19 22:00 02/27/19 12:03 Norvasc PO Not Given DAILY [facility] Aspirin 81 mg 02/25/19 22:00 02/27/19 11:50 Halfprin Ec PO 81 mg DAILY DAVID Administration Clopidogrel Bisulfate 75 mg 02/25/19 22:00 02/27/19 11:47 Plavix PO 75 mg DAILY DAVID Administration Famotidine 10 mg 02/25/19 22:00 02/27/19 11:50 Pepcid PO 10 mg BID DAVID Administration Furosemide 40 mg 02/27/19 06:00 02/27/19 05:20 Lasix IV 40 mg DAILY@0600 DAVID Administration Heparin Sodium (Porcine) 5,000 unit 02/25/19 22:00 02/27/19 11:10 Heparin SUB-Q 5,000 unit Q12HR DAVID Administration Hydralazine HCl 100 mg 02/25/19 22:00 02/27/19 12:02 Apresoline PO Not Given BID [facility] Hydromorphone HCl 0.5 mg 02/25/19 21:11 Dilaudid IV Q3H PRN Pain , Severe (7-10) Levetiracetam 750 mg 02/25/19 22:00 02/27/19 11:47 Keppra PO 750 mg BID [facility] Administration Metoprolol Tartrate 50 mg 02/25/19 22:00 02/27/19 12:02 Lopressor PO Not Given BID [facility] Ondansetron HCl 4 mg 02/25/19 21:11 Zofran IV Q8H PRN Nausea And Vomiting Oxycodone/Acetaminophen 1 tab 02/25/19 21:11 Percocet 5/325 PO Q6H PRN Pain, Moderate (4-6) Pravastatin Sodium 40 mg 02/25/19 22:00 02/26/19 21:04 Pravachol PO 40 mg QHS DAVID Administration Sodium Chloride 10 ml 02/25/19 22:00 02/27/19 11:15 Sodium Chloride Flush Syringe 10 Ml IV 10 ml BID DAVID Administration Sodium Chloride 10 ml 02/25/19 21:11 Sodium Chloride Flush Syringe 10 Ml IV PRN PRN LINE FLUSH
--- NOTE | 2019-02-27 15:55 | Progress Note ---
Assessment and Plan Assessment and plan: Patient is a 83 yo man with a history of CAD s/p CABG, PPM, hypertension, dementia and childhood sz who presents with worsening renal function from Dr. De's [employer] Operator office New ESRD: HD initiation per Nephrology Acute metabolic encephalopathy: treat the renal failure CAD: continue plavix GERD: continue pepcid Dyslipidemia: statin Seizure disorder: continue Keppra and monitor closely Relative hypotension: adjust bp medications CODE MET called, blank unresponsive episodes after he went to bathroom History Interval history: Patient was seen and examined. Follow-up on current diagnosis. No overnight events reported to me. Patient denies any chest pain, shortness breath, n ausea/vomiting or severe headaches. Imaging, nursing note, chart, labs and old chart reviewed. CODE MET called due to lethargy and unresponsive staring episode. He keeps falling asleep. Hospitalist Physical - Physical exam Narrative exam: Gen: chronic disability, lethargic, drowsy but arousable. HEENT: NCAT, EOMI, PERRL, OP Clear Neck: supple, no adenopathy, no thyromegaly, no JVD CVS/Heart: RRR, normal S1S2, pulses present bilaterally Chest/Lungs: CTA B, Symmetrical chest expansion, good air entry bilaterally GI/Abdomen: soft, NTND, good bowel sounds, no guarding or rebound /Bladder: no suprapubic tenderness, no CVA or paraspinal tenderness Extermity/Skin: no c/c/e, no obvious rash MSK: FROM x 4 Neuro: CN 2-12 grossly intact, no new focal deficits Psych: calm - Constitutional Vitals: Temp Pulse Resp BP Pulse Ox 97.7 F 68 16 116/68 100 02/27/19 07:47 02/27/19 12:03 02/27/19 11:00 02/27/19 12:03 02/27/19 10:00 Results - Labs CBC & Chem 7: 02/27/19 10:15 02/26/19 05:55 Labs: Laboratory Last Values WBC 4.0 K/mm3 (4.5-11.0) L 02/27/19 10:15 RBC 4.01 M/mm3 (3.65-5.03) 02/27/19 10:15 Hgb 11.2 gm/dl (11.8-15.2) L 02/27/19 10:15 Hct 34.1 % (35.5-45.6) L 02/27/19 10:15 MCV 85 fl (84-94) 02/27/19 10:15 MCH 28 pg (28-32) 02/27/19 10:15 MCHC 33 % (32-34) 02/27/19 10:15 RDW 14.7 % (13.2-15.2) 02/27/19 10:15 Plt Count 157 K/mm3 (140-440) 02/27/19 10:15 Lymph % (Auto) 23.7 % (13.4-35.0) 02/27/19 10:15 [facility] % (Auto) 11.5 % (0.0-7.3) H 02/27/19 10:15 Eos % (Auto) 3.0 % (0.0-4.3) 02/27/19 10:15 Baso % (Auto) 0.4 % (0.0-1.8) 02/27/19 10:15 Lymph # 1.0 K/mm3 (1.2-5.4) L 02/27/19 10:15 [facility] # 0.5 K/mm3 (0.0-0.8) 02/27/19 10:15 Eos # 0.1 K/mm3 (0.0-0.4) 02/27/19 10:15 Baso # 0.0 K/mm3 (0.0-0.1) 02/27/19 10:15 Seg Neutrophils % 61.4 % (40.0-70.0) 02/27/19 10:15 Seg Neutrophils # 2.5 K/mm3 (1.8-7.7) 02/27/19 10:15 PT 13.3 Sec. (12.2-14.9) 02/27/19 10:15 INR 1.04 (0.87-1.13) 02/27/19 10:15 Sodium 142 mmol/L (137-145) 02/26/19 05:55 Potassium 4.0 mmol/L (3.6-5.0) 02/26/19 05:55 Chloride 104.6 mmol/L (98-107) 02/26/19 05:55 Carbon Dioxide 22 mmol/L (22-30) 02/26/19 05:55 19 mmol/L 02/26/19 05:55 BUN 56 mg/dL (9-20) H 02/26/19 05:55 4.2 mg/dL (0.8-1.5) H 02/26/19 05:55 Estimated GFR 16 ml/min 02/26/19 05:55 13 % 02/26/19 05:55 Glucose 101 mg/dL (75-100) H 02/26/19 05:55 POC Glucose 182 (70-105) H 02/27/19 10:08 5.4 % (4-6) 02/25/19 21:47 Calcium 9.5 mg/dL (8.4-10.2) 02/26/19 05:55 Phosphorus 4.30 mg/dL (2.5-4.5) 02/25/19 14:50 0.40 mg/dL (0.1-1.2) 02/26/19 05:55 AST 17 units/L (5-40) 02/26/19 05:55 ALT 7 units/L (7-56) 02/26/19 05:55 49 units/L (35-129) 02/26/19 05:55 NT-Pro-B Natriuret Pep 6375 pg/mL (0-900) H 02/27/19 10:15 7.2 g/dL (6.3-8.2) 02/26/19 05:55 3.7 g/dL (3.9-5) L 02/26/19 05:55 1.1 % 02/26/19 05:55 Straw (Yellow) 02/25/19 18:35 Clear (Clear) 02/25/19 18:35 7.0 (5.0-7.0) 02/25/19 18:35 Ur Specific [place] 1.008 (1.003-1.030) 02/25/19 18:35 30 mg/dl mg/dL (Negative) 02/25/19 18:35 Neg mg/dL (Negative) 02/25/19 18:35 Neg mg/dL (Negative) 02/25/19 18:35 Neg (Negative) 02/25/19 18:35 Neg (Negative) 02/25/19 18:35 Neg (Negative) 02/25/19 18:35 < 2.0 mg/dL (<2.0) 02/25/19 18:35 Ur Leukocyte Esterase Neg (Negative) 02/25/19 18:35 1.0 /HPF (0.0-6.0) 02/25/19 18:35 1.0 /HPF (0.0-6.0) 02/25/19 18:35 1+ /HPF (Negative) 02/25/19 18:35 29.9 mg/dL (0.1-20.0) H 02/25/19 18:35 112 mmol/L 02/25/19 18:35 Active Medications - Current Medications Current Medications: Generic Name Dose Route Start Last Admin Trade Name Freq PRN Reason Stop Dose Admin Acetaminophen 650 mg 02/25/19 21:11 Tylenol PO Q4H PRN Pain MILD(1-3)/Fever >100.5/ZIMMERMAN Amlodipine Besylate 10 mg 02/25/19 22:00 02/27/19 12:03 Norvasc PO Not Given DAILY [facility] Aspirin 81 mg 02/25/19 22:00 02/27/19 11:50 Halfprin Ec PO 81 mg DAILY [facility] Administration Clopidogrel Bisulfate 75 mg 02/25/19 22:00 02/27/19 11:47 Plavix PO 75 mg DAILY [facility] Administration Famotidine 10 mg 02/25/19 22:00 02/27/19 11:50 Pepcid PO 10 mg BID DAVID Administration Furosemide 40 mg 02/27/19 06:00 02/27/19 05:20 Lasix IV 40 mg DAILY@0600 DAVID Administration Heparin Sodium (Porcine) 5,000 unit 02/25/19 22:00 02/27/19 11:10 Heparin SUB-Q 5,000 unit Q12HR DAVID Administration Hydralazine HCl 100 mg 02/25/19 22:00 02/27/19 12:02 Apresoline PO Not Given BID [facility] Hydromorphone HCl 0.5 mg 02/25/19 21:11 Dilaudid IV Q3H PRN Pain , Severe (7-10) Levetiracetam 750 mg 02/25/19 22:00 02/27/19 11:47 Keppra PO 750 mg BID [facility] Administration Metoprolol Tartrate 50 mg 02/25/19 22:00 02/27/19 12:02 Lopressor PO Not Given BID DAVID Ondansetron HCl 4 mg 02/25/19 21:11 Zofran IV Q8H PRN Nausea And Vomiting Oxycodone/Acetaminophen 1 tab 02/25/19 21:11 Percocet 5/325 PO Q6H PRN Pain, Moderate (4-6) Pravastatin Sodium 40 mg 02/25/19 22:00 02/26/19 21:04 Pravachol PO 40 mg QHS DAVID Administration Sodium Chloride 10 ml 02/25/19 22:00 02/27/19 11:15 Sodium Chloride Flush Syringe 10 Ml IV 10 ml BID DAVID Administration Sodium Chloride 10 ml 02/25/19 21:11 Sodium Chloride Flush Syringe 10 Ml IV PRN PRN LINE FLUSH Nutrition/Malnutrition Assess - Dietary Evaluation Nutrition/Malnutrition Findings: Nutrition Notes Start: 02/26/19 09:35 Freq: Status: Active Protocol: Document 02/26/19 09:35 LP (Rec: 02/26/19 09:42 LP [id number]) Nutrition Notes Need for Assessment generated from: scale and skip car operator Initial or Follow up Assessment Current Diagnosis Acute Kidney Injury,CKD(stage I-IV),Hypertension Current Diet Renal Labs/Tests BUN 56 Cr 4.2 Pertinent Medications Lasix Height 5 ft 11 in Weight 72.575 kg [place] Body Weight (kg) 78.18 BMI 22.3 Subjective/Other Information Screen for MST. 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 Pt has not touched breakfast this AM. Pt states able to drink water. Pt states he has notice wt loss but unsure of UBW. Noted temporal and orbital wasting. 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 Is patient on ventilator? No Is Patient Ambulatory and/or Out of Bed No REE-([facility]confined to bed) 1738.548 Kcal/Kg value to use for calculation 30 Approximate Energy Requirements Using 2177 kcal/Kg Calculation Used for Recommendations Kcal/kg Additional Notes Protein needs are 87-109g (1.2 -1.5g/kg) Fluid needs are 1ml/kcal Nutrition Intervention Change Diet Order: Continue Renal Add Supplement/Snack (indicate name/kcal Nepro Vanilla BID /protein ) Provides kCal: 850 Provides Protein (gm) 38 Goal #1 Meet at least 80% of kcal and protein needs Goal #2 Wt gain/ maintenance Anticipated Discharge Needs: Renal with ONS BID to TID Follow-Up By: 03/02/19 Additional Comments Follow for intake, ONS tolerance
[2019-02-27 18:20] LABS: Chol/HDL Ratio 2.32 %
[2019-02-27 19:24] LABS: Creatinine 24 Hour,Urine 1.2 (0.8-2.8); Creatinine,Urine 48.8 mg/dL (0.1-20.0)
[2019-02-27] MEDS ORDERED: LOPRESSOR PO SCH ×2 (22:00)
[2019-02-27] MEDS: PRAVACHOL PO SCH (22:49)
--- NOTE | 2019-02-27 23:52 | Event Note ---
Date: 02/27/19 [id number]
[2019-02-28] MEDS: LASIX IV SCH (06:54)
[2019-02-28 07:00] LABS: Hematocrit 30.2 % (35.5-45.6); Hemoglobin 10.1 gm/dl (11.8-15.2); Mean Corpuscular HGB Conc 34 % (32-34); Mean Corpuscular Volume 85 fl (84-94); Platelet Count 127 K/mm3 (140-440); Red Blood Count 3.55 M/mm3 (3.65-5.03); Red Cell Distribution Width 14.6 % (13.2-15.2)
[2019-02-28 07:26] LABS: Calcium 9.6 mg/dL (8.4-10.2)
[2019-02-28] MEDS: KEPPRA PO SCH ×2 (09:21→23:23)
[2019-02-28] MEDS: PEPCID PO SCH ×2 (09:21→23:23)
[2019-02-28] MEDS: SODIUM CHLORIDE FLUSH SYRINGE 10 ML IV SCH ×2 (09:22→23:23)
[2019-02-28] MEDS: PLAVIX PO SCH (09:22)
[2019-02-28] MEDS: HALFPRIN EC PO SCH (09:22)
[2019-02-28] MEDS: HEPARIN SUB-Q SCH ×2 (09:23→23:22)
[2019-02-28] MEDS: LOPRESSOR PO SCH ×2 (10:21→23:23)
--- NOTE | 2019-02-28 10:50 | Progress Note ---
Subjective Interval history: Patient was seen today for follow-up on multiple renal related issues Creatinine is worse Patient denies having any chest pain pressure or shortness of breath Vitals labs intake output medications were reviewed Social history: Reviewed Allergies: Reviewed Family history: Reviewed Physical examination HEENT: Oral mucosa dry no pallor or icterus Neck: Supple no JVD Chest: Clear to auscultation anteriorly CVS: Regular rate and rhythm S1 and S2 heard Abdomen: Soft nontender no suprapubic masses no organomegaly appreciable Extremity: Dry skin less than 1+ peripheral edema Musculoskeletal: No joint effusion noted in knees and ankle Neurological: Alert awake Dermatology: No petechial rashes Psychiatry: No evidence of any agitation and aggression noted Assessment and plan; Acute on chronic renal failure patient was 83-year-old not a suitable candidate for renal placement therapy currently creatinine is worse at 4.9, at this point would like to hold off the diuretic monitor renal function closely. Obtain serial chest x-rays blood pressure has been on the low side 106/66 Baseline creatinine was around 3 as of October 2018 Will do basic metabolic profile uric acid as well as osmolality tomorrow morning Congestive heart failure patient is not a suitable candidate for any form of VITO inhibitor or angiotensin receptor shell Ultrasonogram: Shows changes of chronic kidney disease Discontinue the Lasix for now and follow-up on the renal function Overall prognosis is very poor due to age and multiple comorbidities, this has been discussed with patient's family yesterday Patient in my opinion is not a suitable candidate for renal replacement therapy Anemia chronic multifactorial stable ? Is patient a candidate for hospice We'll continue to follow and make recommendation from renal standpoint Objective - Vital Signs Vital signs: Vital Signs - 12hr 02/27/19 02/27/19 02/28/19 22:50 23:46 03:46 Temperature 98.0 F 98.0 F Pulse Rate 80 76 67 Respiratory 18 18 Rate Blood Pressure 104/69 101/65 O2 Sat by Pulse 97 97 Oximetry 02/28/19 10:21 Temperature Pulse Rate 68 Respiratory Rate Blood Pressure 106/66 O2 Sat by Pulse Oximetry - Lab 02/28/19 06:20 02/28/19 06:20 Most recent lab results Calcium 9.6 mg/dL (8.4-10.2) 02/28/19 06:20 Phosphorus 4.30 mg/dL (2.5-4.5) 02/25/19 14:50 48.8 mg/dL (0.1-20.0) H 02/27/19 19:00 Ur Total Protein 24 Hr 1875.00 mg/dL (2-200) H 02/27/19 19:00 112 mmol/L 02/25/19 18:35 75 mg/dL (5-11.8) H 02/27/19 19:00 Medications & Allergies - Medications Allergies/Adverse Reactions: Allergies No Known Allergies Allergy (Verified 02/25/19 14:44) Home Medications: Home Medications Medication Instructions Recorded Confirmed Last Taken Type Amlodipine Besylate 10 mg PO DAILY 10/11/16 02/26/19 09/04/17 History Aspirin EC 81 mg PO DAILY 10/11/16 02/26/19 02/24/19 History Clopidogrel Bisulfate [Clopidogrel] 75 mg PO DAILY 10/11/16 02/26/19 02/24/19 History Famotidine 40 mg PO BID 10/11/16 02/26/19 02/24/19 History Lovastatin 40 mg PO HS 10/11/16 02/26/19 02/24/19 History Metoprolol Tartrate 50 mg PO BID 10/11/16 02/26/19 02/24/19 History Vit D3/Folic Acid/B2/B6/B12 1 each PO DAILY 10/11/16 02/26/19 09/04/17 History [Folgard Tablet] Sodium Bicarbonate 650 mg PO TID 11/11/17 02/26/19 02/24/19 History Ondansetron [Zofran Odt] 4 mg PO Q8HR PRN #14 tab.rapdis 06/09/18 02/26/19 Unknown Rx Furosemide 40 mg PO QDAC 02/25/19 02/26/19 02/24/19 History hydrALAZINE [Apresoline TAB] 100 mg PO BID 02/25/19 02/26/19 02/24/19 History levETIRAcetam [Keppra TAB] 750 mg PO BID 02/25/19 02/26/19 02/24/19 History Active Medications: Generic Name Dose Route Start Last Admin Trade Name Freq PRN Reason Stop Dose Admin Acetaminophen 650 mg 02/25/19 21:11 Tylenol PO Q4H PRN Pain MILD(1-3)/Fever >100.5/ZIMMERMAN Aspirin 81 mg 02/25/19 22:00 02/28/19 09:22 Halfprin Ec PO 81 mg DAILY DAVID Administration Clopidogrel Bisulfate 75 mg 02/25/19 22:00 02/28/19 09:22 Plavix PO 75 mg DAILY DAVID Administration Famotidine 10 mg 02/25/19 22:00 02/28/19 09:21 Pepcid PO 10 mg BID DAVID Administration Heparin Sodium (Porcine) 5,000 unit 02/25/19 22:00 02/28/19 09:23 Heparin SUB-Q 5,000 unit Q12HR DAVID Administration Hydromorphone HCl 0.5 mg 02/25/19 21:11 Dilaudid IV Q3H PRN Pain , Severe (7-10) Levetiracetam 750 mg 02/25/19 22:00 02/28/19 09:21 Keppra PO 750 mg BID DAVID Administration Metoprolol Tartrate 12.5 mg 02/28/19 10:00 02/28/19 10:21 Lopressor PO 12.5 mg BID DAVID Administration Ondansetron HCl 4 mg 02/25/19 21:11 Zofran IV Q8H PRN Nausea And Vomiting Oxycodone/Acetaminophen 1 tab 02/25/19 21:11 Percocet 5/325 PO Q6H PRN Pain, Moderate (4-6) Pravastatin Sodium 40 mg 02/25/19 22:00 02/27/19 22:49 Pravachol PO 40 mg QHS DAVID Administration Sodium Chloride 10 ml 02/25/19 22:00 02/28/19 09:22 Sodium Chloride Flush Syringe 10 Ml IV 10 ml BID DAVID Administration Sodium Chloride 10 ml 02/25/19 21:11 Sodium Chloride Flush Syringe 10 Ml IV PRN PRN LINE FLUSH
[2019-02-28 15:14] LABS: Iron 42 ug/dL (49-181); Total Iron Binding Capacity 192 mcg/dL (250-450)
--- NOTE | 2019-02-28 15:35 | Progress Note ---
Assessment and Plan Assessment and plan: Patient is a 83 yo man with a history of CAD s/p CABG, PPM, hypertension, dementia and childhood sz who presents with worsening renal function from Dr. De's [employer] Expert office New ESRD: HD initiation per Nephrology Acute metabolic encephalopathy: treat the renal failure CAD: continue plavix GERD: continue pepcid Dyslipidemia: statin Seizure disorder: continue Keppra and monitor closely Relative hypotension: adjust bp medications History Interval history: Patient was seen and examined. Follow-up on current diagnosis. No overnight events reported to me. Patient denies any chest pain, shortness breath, nausea/vomiting or severe headaches. Imaging, nursing note, chart, labs and old chart reviewed. CODE MET called due to lethargy and unresponsive staring episode. He keeps falling asleep. Hospitalist Physical - Physical exam Narrative exam: Gen: chronic disability, lethargic, drowsy but arousable. HEENT: NCAT, EOMI, PERRL, OP Clear Neck: supple, no adenopathy, no thyromegaly, no JVD CVS/Heart: RRR, normal S1S2, pulses present bilaterally Chest/Lungs: CTA B, Symmetrical chest expansion, good air entry bilaterally GI/Abdomen: soft, NTND, good bowel sounds, no guarding or rebound /Bladder: no suprapubic tenderness, no CVA or paraspinal tenderness Extermity/Skin: no c/c/e, no obvious rash MSK: FROM x 4 Neuro: CN 2-12 grossly intact, no new focal deficits Psych: calm - Constitutional Vitals: Temp Pulse Resp BP Pulse Ox 98.0 F 68 18 106/66 97 02/28/19 03:46 02/28/19 10:21 02/28/19 03:46 02/28/19 10:21 02/28/19 03:46 Results - Labs CBC & Chem 7: 02/28/19 06:20 02/28/19 06:20 Labs: Laboratory Last Values WBC 4.3 K/mm3 (4.5-11.0) L 02/28/19 06:20 RBC 3.55 M/mm3 (3.65-5.03) L 02/28/19 06:20 Hgb 10.1 gm/dl (11.8-15.2) L 02/28/19 06:20 Hct 30.2 % (35.5-45.6) L 02/28/19 06:20 MCV 85 fl (84-94) 02/28/19 06:20 MCH 29 pg (28-32) 02/28/19 06:20 MCHC 34 % (32-34) 02/28/19 06:20 RDW 14.6 % (13.2-15.2) 02/28/19 06:20 Plt Count 127 K/mm3 (140-440) L 02/28/19 06:20 Lymph % (Auto) 23.7 % (13.4-35.0) 02/27/19 10:15 [place] % (Auto) 11.5 % (0.0-7.3) H 02/27/19 10:15 Eos % (Auto) 3.0 % (0.0-4.3) 02/27/19 10:15 Baso % (Auto) 0.4 % (0.0-1.8) 02/27/19 10:15 Lymph # 1.0 K/mm3 (1.2-5.4) L 02/27/19 10:15 [place] # 0.5 K/mm3 (0.0-0.8) 02/27/19 10:15 Eos # 0.1 K/mm3 (0.0-0.4) 02/27/19 10:15 Baso # 0.0 K/mm3 (0.0-0.1) 02/27/19 10:15 Seg Neutrophils % 61.4 % (40.0-70.0) 02/27/19 10:15 Seg Neutrophils # 2.5 K/mm3 (1.8-7.7) 02/27/19 10:15 PT 13.3 Sec. (12.2-14.9) 02/27/19 10:15 INR 1.04 (0.87-1.13) 02/27/19 10:15 Sodium 142 mmol/L (137-145) 02/28/19 06:20 Potassium 3.9 mmol/L (3.6-5.0) 02/28/19 06:20 Chloride 104.0 mmol/L (98-107) 02/28/19 06:20 Carbon Dioxide 23 mmol/L (22-30) 02/28/19 06:20 19 mmol/L 02/28/19 06:20 BUN 70 mg/dL (9-20) H 02/28/19 06:20 4.9 mg/dL (0.8-1.5) H 02/28/19 06:20 Estimated GFR 14 ml/min 02/28/19 06:20 14 % 02/28/19 06:20 Glucose 113 mg/dL (75-100) H 02/28/19 06:20 POC Glucose 182 (70-105) H 02/27/19 10:08 5.4 % (4-6) 02/25/19 21:47 Calcium 9.6 mg/dL (8.4-10.2) 02/28/19 06:20 Phosphorus 4.30 mg/dL (2.5-4.5) 02/25/19 14:50 Iron 42 ug/dL (49-181) L 02/28/19 12:32 TIBC 192 mcg/dL (250-450) L 02/28/19 12:32 337.9 ng/mL (13.0-400.0) 02/28/19 12:32 0.40 mg/dL (0.1-1.2) 02/26/19 05:55 AST 17 units/L (5-40) 02/26/19 05:55 ALT 7 units/L (7-56) 02/26/19 05:55 49 units/L (35-129) 02/26/19 05:55 0.079 ng/mL (0.00-0.029) H 02/28/19 00:09 NT-Pro-B Natriuret Pep 6375 pg/mL (0-900) H 02/27/19 10:15 7.2 g/dL (6.3-8.2) 02/26/19 05:55 3.7 g/dL (3.9-5) L 02/26/19 05:55 1.1 % 02/26/19 05:55 Triglycerides 39 mg/dL (2-149) 02/27/19 17:00 Cholesterol 121 mg/dL (50-199) 02/27/19 17:00 68 mg/dL (50-130) 02/27/19 17:00 52 mg/dL (40-59) 02/27/19 17:00 2.32 % 02/27/19 17:00 Vitamin B12 316.3 pg/mL (211-911) 02/28/19 12:32 16.17 ng/mL (7.3-26.0) 02/28/19 12:32 Straw (Yellow) 02/25/19 18:35 Clear (Clear) 02/25/19 18:35 7.0 (5.0-7.0) 02/25/19 18:35 Ur Specific [place] 1.008 (1.003-1.030) 02/25/19 18:35 30 mg/dl mg/dL (Negative) 02/25/19 18:35 Neg mg/dL (Negative) 02/25/19 18:35 Neg mg/dL (Negative) 02/25/19 18:35 Neg (Negative) 02/25/19 18:35 Neg (Negative) 02/25/19 18:35 Neg (Negative) 02/25/19 18:35 < 2.0 mg/dL (<2.0) 02/25/19 18:35 Ur Leukocyte Esterase Neg (Negative) 02/25/19 18:35 1.0 /HPF (0.0-6.0) 02/25/19 18:35 1.0 /HPF (0.0-6.0) 02/25/19 18:35 1+ /HPF (Negative) 02/25/19 18:35 2500 ml 02/27/19 19:00 48.8 mg/dL (0.1-20.0) H 02/27/19 19:00 Ur Creatinine 24 Hour 1.2 (0.8-2.8) 02/27/19 19:00 Ur Total Protein 24 Hr 1875.00 mg/dL (2-200) H 02/27/19 19:00 112 mmol/L 02/25/19 18:35 75 mg/dL (5-11.8) H 02/27/19 19:00 Active Medications - Current Medications Current Medications: Generic Name Dose Route Start Last Admin Trade Name Freq PRN Reason Stop Dose Admin Acetaminophen 650 mg 02/25/19 21:11 Tylenol PO Q4H PRN Pain MILD(1-3)/Fever >100.5/ZIMMERMAN Aspirin 81 mg 02/25/19 22:00 02/28/19 09:22 Halfprin Ec PO 81 mg DAILY DAVID Administration Clopidogrel Bisulfate 75 mg 02/25/19 22:00 02/28/19 09:22 Plavix PO 75 mg DAILY DAVID Administration Famotidine 10 mg 02/25/19 22:00 02/28/19 09:21 Pepcid PO 10 mg BID DAVID Administration Heparin Sodium (Porcine) 5,000 unit 02/25/19 22:00 02/28/19 09:23 Heparin SUB-Q 5,000 unit Q12HR DAVID Administration Hydromorphone HCl 0.5 mg 02/25/19 21:11 Dilaudid IV Q3H PRN Pain , Severe (7-10) Levetiracetam 750 mg 02/25/19 22:00 02/28/19 09:21 Keppra PO 750 mg BID DAVID Administration Metoprolol Tartrate 12.5 mg 02/28/19 10:00 02/28/19 10:21 Lopressor PO 12.5 mg BID DAVID Administration Ondansetron HCl 4 mg 02/25/19 21:11 Zofran IV Q8H PRN Nausea And Vomiting Oxycodone/Acetaminophen 1 tab 02/25/19 21:11 Percocet 5/325 PO Q6H PRN Pain, Moderate (4-6) Pravastatin Sodium 40 mg 02/25/19 22:00 02/27/19 22:49 Pravachol PO 40 mg QHS DAVID Administration Sodium Chloride 10 ml 02/25/19 22:00 02/28/19 09:22 Sodium Chloride Flush Syringe 10 Ml IV 10 ml BID DAVID Administration Sodium Chloride 10 ml 02/25/19 21:11 Sodium Chloride Flush Syringe 10 Ml IV PRN PRN LINE FLUSH Nutrition/Malnutrition Assess - Dietary Evaluation Nutrition/Malnutrition Findings: Nutrition Notes Start: 02/26/19 09:35 Freq: Status: Active Protocol: Document 02/26/19 09:35 LP (Rec: 02/26/19 09:42 LP [email or web address]) Nutrition Notes Need for Assessment generated from: harvesting supervisor Initial or Follow up Assessment Current Diagnosis Acute Kidney Injury,CKD(stage I-IV),Hypertension Current Diet Renal Labs/Tests BUN 56 Cr 4.2 Pertinent Medications Lasix Height 5 ft 11 in Weight 72.575 kg [place] Body Weight (kg) 78.18 BMI 22.3 Subjective/Other Information Screen for MST. 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 Pt has not touched breakfast this AM. Pt states able to drink water. Pt states he has notice wt loss but unsure of UBW. Noted temporal and orbital wasting. 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 Is patient on ventilator? No Is Patient Ambulatory and/or Out of Bed No REE-([facility]-confined to bed) 1738.548 Kcal/Kg value to use for calculation 30 Approximate Energy Requirements Using 2177 kcal/Kg Calculation Used for Recommendations Kcal/kg Additional Notes Protein needs are 87-109g (1.2 -1.5g/kg) Fluid needs are 1ml/kcal Nutrition Intervention Change Diet Order: Continue Renal Add Supplement/Snack (indicate name/kcal Nepro Vanilla BID /protein ) Provides kCal: 850 Provides Protein (gm) 38 Goal #1 Meet at least 80% of kcal and protein needs Goal #2 Wt gain/ maintenance Anticipated Discharge Needs: Renal with ONS BID to TID Follow-Up By: 03/02/19 Additional Comments Follow for intake, ONS tolerance
[2019-02-28] MEDS: PRAVACHOL PO SCH (23:23)
--- NOTE | 2019-02-28 23:45 | Consultation ---
REFERRED BY: Dr. Cassidy. REASON FOR CONSULTATION: Anemia, leukopenia and thrombocytopenia. HISTORY OF PRESENT ILLNESS: I saw the patient, an 83-year-old male in the medical floor. The patient's family members were present in the room. The patient came to the hospital because of increased renal impairment and was admitted for possible dialysis. The patient has past history of hypertension, coronary artery disease, GERD, hyperlipidemia, vitamin D deficiency, seizure disorders. The patient also has had heart surgery and pacemaker. He came to the hospital for above reasons. Blood test showed blood counts to be low and I have been asked to evaluate the patient for same. The patient's family members denied any previous low blood count. PAST MEDICAL HISTORY: As above. Even the patient has dementia, he is able to follow simple commands, but he is not answering questions. PAST SURGICAL HISTORY: As above. REVIEW OF SYSTEMS: Not reliable. Most of the information came from the medical records and family members. No history of bleeding issues. No shortness of breath. No chest pain at rest. No vomiting, no diarrhea. ALLERGIES: None. PRESENT MEDICATIONS: Include aspirin, Plavix, heparin, Keppra, metoprolol, pain medications. PHYSICAL EXAMINATION: VITAL SIGNS: Temperature 98, pulse 72, respirations 18, BP 126/70. HEENT: No pallor, no icterus. NECK: No neck lymph nodes. HEART: S1, S2, pacemaker present. LUNGS: Clear to auscultation. ABDOMEN: Soft. EXTREMITIES: No calf tenderness. LABORATORY DATA: White cells 4, hemoglobin 11, MCV 85, platelet 157. In the recent past, white cell was 2.7, hemoglobin 10, MCV 87 and platelets 131, neutrophil count was 1.1, potassium 4, creatinine 4.2, calcium 9.5, bilirubin 0.4. RADIOLOGY: Renal ultrasound was done. ASSESSMENT AND PLAN: 1. Anemia, leukopenia and thrombocytopenia. We will do deficiency investigations. MCV is not elevated. Either this could be deficiency or medication related or transient phenomena or this could be myelodysplastic syndrome. We will need to follow the blood count to see the trend. 2. New end-stage renal disease. The patient may need dialysis. Nephrology is following. 3. Coronary artery disease. 4. History of gastroesophageal reflux disease. 5. History of hyperlipidemia. 6. History of seizure disorder. I spoke to the family members regarding the clinical findings. There is mention of dementia and hypotension in the notes, he has a pacemaker. JOB# [id number] NM/NTS
[2019-03-01 06:08] LABS: Hematocrit 32.9 % (35.5-45.6); Hemoglobin 10.8 gm/dl (11.8-15.2); Mean Corpuscular HGB Conc 33 % (32-34); Mean Corpuscular Volume 85 fl (84-94); Platelet Count 118 K/mm3 (140-440); Red Blood Count 3.85 M/mm3 (3.65-5.03); Red Cell Distribution Width 14.7 % (13.2-15.2)
[2019-03-01 06:30] LABS: Calcium 9.7 mg/dL (8.4-10.2)
--- NOTE | 2019-03-01 11:10 | Progress Note ---
Subjective Interval history: Patient was seen today for follow-up on multiple renal related issues Creatinine is worse Patient denies having any chest pain pressure or shortness of breath Vitals labs intake output medications were reviewed Social history: Reviewed Allergies: Reviewed Family history: Reviewed Physical examination HEENT: Oral mucosa dry no pallor or icterus Neck: Supple no JVD Chest: Clear to auscultation anteriorly CVS: Regular rate and rhythm S1 and S2 heard Abdomen: Soft nontender no suprapubic masses no organomegaly appreciable Extremity: Dry skin less than 1+ peripheral edema Musculoskeletal: No joint effusion noted in knees and ankle Neurological: Alert awake Dermatology: No petechial rashes Psychiatry: No evidence of any agitation and aggression noted Assessment and plan; Severe renal failure in a patient was 83-year-old in my opinion is not a very good candidate for long-term dialysis however short-term limited trial can be offered Not sure how much dialysis will help him with his age and multiple other comorbidities Ultrasonogram shows changes of chronic kidney disease There has been a progressive decline in renal function Patient is also been noted to have fluid overload intolerant of diabetics Overall prognosis long-term is very poor Had a long discussion with patient's We can consider a short-term dialysis trial for at least a month and see how he tolerates This was discussed with patient's at length We'll continue to follow and make recommendation from renal standpoint Objective - Vital Signs Vital signs: Vital Signs - 12hr 02/28/19 03/01/19 03/01/19 23:33 02:13 04:39 Temperature 98.0 F 98.0 F Pulse Rate 91 H 85 79 Respiratory 18 18 Rate Blood Pressure 106/77 133/86 O2 Sat by Pulse 95 97 Oximetry 03/01/19 09:10 Temperature 98.0 F Pulse Rate Respiratory 18 Rate Blood Pressure 133/84 O2 Sat by Pulse Oximetry - Lab 03/01/19 05:38 03/01/19 05:38 Most recent lab results Calcium 9.7 mg/dL (8.4-10.2) 03/01/19 05:38 Phosphorus 4.30 mg/dL (2.5-4.5) 02/25/19 14:50 48.8 mg/dL (0.1-20.0) H 02/27/19 19:00 Ur Total Protein 24 Hr 1875.00 mg/dL (2-200) H 06/21/19 19:00 112 mmol/L 02/25/19 18:35 75 mg/dL (5-11.8) H 02/27/19 19:00 Medications & Allergies - Medications Allergies/Adverse Reactions: Allergies No Known Allergies Allergy (Verified 02/25/19 14:44) Home Medications: Home Medications Medication Instructions Recorded Confirmed Last Taken Type Amlodipine Besylate 10 mg PO DAILY 10/11/16 02/26/19 09/04/17 History Aspirin EC 81 mg PO DAILY 10/11/16 02/26/19 02/24/19 History Clopidogrel Bisulfate [Clopidogrel] 75 mg PO DAILY 10/11/16 02/26/19 02/24/19 History Famotidine 40 mg PO BID 10/11/16 02/26/19 02/24/19 History Lovastatin 40 mg PO HS 10/11/16 02/26/19 02/24/19 History Metoprolol Tartrate 50 mg PO BID 10/11/16 02/26/19 02/24/19 History Vit D3/Folic Acid/B2/B6/B12 1 each PO DAILY 10/11/16 02/26/19 09/04/17 History [Folgard Tablet] Sodium Bicarbonate 650 mg PO TID 11/11/17 02/26/19 02/24/19 History Ondansetron [Zofran Odt] 4 mg PO Q8HR PRN #14 tab.rapdis 06/09/18 02/26/19 Unknown Rx Furosemide 40 mg PO QDAC 02/25/19 02/26/19 02/24/19 History hydrALAZINE [Apresoline TAB] 100 mg PO BID 02/25/19 02/26/19 02/24/19 History levETIRAcetam [Keppra TAB] 750 mg PO BID 02/25/19 02/26/19 02/24/19 History Active Medications: Generic Name Dose Route Start Last Admin Trade Name Freq PRN Reason Stop Dose Admin Acetaminophen 650 mg 02/25/19 21:11 Tylenol PO Q4H PRN Pain MILD(1-3)/Fever >100.5/ZIMMERMAN Aspirin 81 mg 02/25/19 22:00 02/28/19 09:22 Halfprin Ec PO 81 mg DAILY DAVID Administration Clopidogrel Bisulfate 75 mg 02/25/19 22:00 02/28/19 09:22 Plavix PO 75 mg DAILY DAVID Administration Famotidine 10 mg 02/25/19 22:00 02/28/19 23:23 Pepcid PO 10 mg BID DAVID Administration Heparin Sodium (Porcine) 5,000 unit 02/25/19 22:00 02/28/19 23:22 Heparin SUB-Q 5,000 unit Q12HR DAVID Administration Hydromorphone HCl 0.5 mg 02/25/19 21:11 Dilaudid IV Q3H PRN Pain , Severe (7-10) Levetiracetam 750 mg 02/25/19 22:00 02/28/19 23:23 Keppra PO 750 mg BID DAVID Administration Metoprolol Tartrate 12.5 mg 02/28/19 10:00 02/28/19 23:23 Lopressor PO 12.5 mg BID DAVID Administration Ondansetron HCl 4 mg 02/25/19 21:11 Zofran IV Q8H PRN Nausea And Vomiting Oxycodone/Acetaminophen 1 tab 02/25/19 21:11 Percocet 5/325 PO Q6H PRN Pain, Moderate (4-6) Pravastatin Sodium 40 mg 02/25/19 22:00 02/28/19 23:23 Pravachol PO 40 mg QHS DAVID Administration Sodium Chloride 10 ml 02/25/19 22:00 02/28/19 23:23 Sodium Chloride Flush Syringe 10 Ml IV 10 ml BID DAVID Administration Sodium Chloride 10 ml 02/25/19 21:11 Sodium Chloride Flush Syringe 10 Ml IV PRN PRN LINE FLUSH
[2019-03-01] MEDS: PLAVIX PO SCH (11:38)
[2019-03-01] MEDS: KEPPRA PO SCH ×2 (11:38→21:32)
[2019-03-01] MEDS: PEPCID PO SCH ×2 (11:38→21:33)
[2019-03-01] MEDS: LOPRESSOR PO SCH ×2 (11:38→21:32)
[2019-03-01] MEDS: HALFPRIN EC PO SCH (11:39)
[2019-03-01] MEDS: HEPARIN SUB-Q SCH ×2 (11:39→21:33)
[2019-03-01] MEDS: SODIUM CHLORIDE FLUSH SYRINGE 10 ML IV SCH ×2 (11:40→21:34)
--- NOTE | 2019-03-01 13:14 | Progress Note ---
Assessment and Plan Assessment and plan: Patient is a 83 yo man with a history of CAD s/p CABG, PPM, hypertension, dementia and childhood sz who presents with worsening renal function from Dr. De's [employer] office New ESRD: HD initiation per Nephrology Acute metabolic encephalopathy: treat the renal failure CAD: continue plavix GERD: continue pepcid Dyslipidemia: statin Seizure disorder: continue Keppra and monitor closely Relative hypotension: adjust bp medications Family meeting done today, hemodialysis to start tomorrow, d/w Dr. Arcos, consulted Dr. Young History Interval history: Patient was seen and examined. Follow-up on current diagnosis. No overnight events reported to me. Patient denies any chest pain, shortness breath, nausea/vomiting or severe headaches. Imaging, nursing note, chart, labs and old chart reviewed. CODE MET called due to lethargy and unresponsive staring episode. He keeps falling asleep. Hospitalist Physical - Physical exam Narrative exam: Gen: chronic disability, lethargic, drowsy but arousable. HEENT: NCAT, EOMI, PERRL, OP Clear Neck: supple, no adenopathy, no thyromegaly, no JVD CVS/Heart: RRR, normal S1S2, pulses present bilaterally Chest/Lungs: CTA B, Symmetrical chest expansion, good air entry bilaterally GI/Abdomen: soft, NTND, good bowel sounds, no guarding or rebound /Bladder: no suprapubic tenderness, no CVA or paraspinal tenderness Extermity/Skin: no c/c/e, no obvious rash MSK: FROM x 4 Neuro: CN 2-12 grossly intact, no new focal deficits Psych: calm - Constitutional Vitals: Temp Pulse Resp BP Pulse Ox 98.0 F 79 18 133/84 97 03/01/19 09:10 03/01/19 04:39 03/01/19 09:10 03/01/19 09:10 03/01/19 04:39 Results - Labs CBC & Chem 7: 03/01/19 05:38 03/01/19 05:38 Labs: Laboratory Last Values WBC 4.9 K/mm3 (4.5-11.0) 03/01/19 05:38 RBC 3.85 M/mm3 (3.65-5.03) 03/01/19 05:38 Hgb 10.8 gm/dl (11.8-15.2) L 03/01/19 05:38 Hct 32.9 % (35.5-45.6) L 03/01/19 05:38 MCV 85 fl (84-94) 03/01/19 05:38 MCH 28 pg (28-32) 03/01/19 05:38 MCHC 33 % (32-34) 03/01/19 05:38 RDW 14.7 % (13.2-15.2) 03/01/19 05:38 Plt Count 118 K/mm3 (140-440) L 03/01/19 05:38 Lymph % (Auto) 23.7 % (13.4-35.0) 02/27/19 10:15 [place] % (Auto) 11.5 % (0.0-7.3) H 02/27/19 10:15 Eos % (Auto) 3.0 % (0.0-4.3) 02/27/19 10:15 Baso % (Auto) 0.4 % (0.0-1.8) 02/27/19 10:15 Lymph # 1.0 K/mm3 (1.2-5.4) L 02/27/19 10:15 [place] # 0.5 K/mm3 (0.0-0.8) 02/27/19 10:15 Eos # 0.1 K/mm3 (0.0-0.4) 02/27/19 10:15 Baso # 0.0 K/mm3 (0.0-0.1) 02/27/19 10:15 Seg Neutrophils % 61.4 % (40.0-70.0) 02/27/19 10:15 Seg Neutrophils # 2.5 K/mm3 (1.8-7.7) 02/27/19 10:15 PT 13.3 Sec. (12.2-14.9) 02/27/19 10:15 INR 1.04 (0.87-1.13) 02/27/19 10:15 Sodium 138 mmol/L (137-145) 03/01/19 05:38 Potassium 4.2 mmol/L (3.6-5.0) 03/01/19 05:38 Chloride 104.5 mmol/L (98-107) 03/01/19 05:38 Carbon Dioxide 19 mmol/L (22-30) L 03/01/19 05:38 19 mmol/L 03/01/19 05:38 BUN 72 mg/dL (9-20) H 03/01/19 05:38 4.7 mg/dL (0.8-1.5) H 03/01/19 05:38 Estimated GFR 14 ml/min 03/01/19 05:38 15 % 03/01/19 05:38 Glucose 109 mg/dL (75-100) H 03/01/19 05:38 POC Glucose 182 (70-105) H 02/27/19 10:08 5.4 % (4-6) 02/25/19 21:47 313 Mosm/kg 03/01/19 10:32 7.5 mg/dL (3.5-7.6) 03/01/19 10:32 Calcium 9.7 mg/dL (8.4-10.2) 03/01/19 05:38 Phosphorus 4.30 mg/dL (2.5-4.5) 02/25/19 14:50 Iron 42 ug/dL (49-181) L 02/28/19 12:32 TIBC 192 mcg/dL (250-450) L 02/28/19 12:32 337.9 ng/mL (13.0-400.0) 02/28/19 12:32 0.40 mg/dL (0.1-1.2) 02/26/19 05:55 AST 17 units/L (5-40) 02/26/19 05:55 ALT 7 units/L (7-56) 02/26/19 05:55 49 units/L (35-129) 02/26/19 05:55 0.079 ng/mL (0.00-0.029) H 02/28/19 00:09 NT-Pro-B Natriuret Pep 6375 pg/mL (0-900) H 02/27/19 10:15 7.2 g/dL (6.3-8.2) 02/26/19 05:55 3.7 g/dL (3.9-5) L 02/26/19 05:55 1.1 % 02/26/19 05:55 Triglycerides 39 mg/dL (2-149) 02/27/19 17:00 Cholesterol 121 mg/dL (50-199) 02/27/19 17:00 68 mg/dL (50-130) 02/27/19 17:00 52 mg/dL (40-59) 02/27/19 17:00 2.32 % 02/27/19 17:00 Vitamin B12 316.3 pg/mL (211-911) 02/28/19 12:32 16.17 ng/mL (7.3-26.0) 02/28/19 12:32 Straw (Yellow) 02/25/19 18:35 Clear (Clear) 02/25/19 18:35 7.0 (5.0-7.0) 02/25/19 18:35 Ur Specific [place] 1.008 (1.003-1.030) 02/25/19 18:35 30 mg/dl mg/dL (Negative) 02/25/19 18:35 Neg mg/dL (Negative) 02/25/19 18:35 Neg mg/dL (Negative) 02/25/19 18:35 Neg (Negative) 02/25/19 18:35 Neg (Negative) 02/25/19 18:35 Neg (Negative) 02/25/19 18:35 < 2.0 mg/dL (<2.0) 02/25/19 18:35 Ur Leukocyte Esterase Neg (Negative) 02/25/19 18:35 1.0 /HPF (0.0-6.0) 02/25/19 18:35 1.0 /HPF (0.0-6.0) 02/25/19 18:35 1+ /HPF (Negative) 02/25/19 18:35 2500 ml 02/27/19 19:00 48.8 mg/dL (0.1-20.0) H 02/27/19 19:00 Ur Creatinine 24 Hour 1.2 (0.8-2.8) 02/27/19 19:00 Ur Total Protein 24 Hr 1875.00 mg/dL (2-200) H 02/27/19 19:00 112 mmol/L 02/25/19 18:35 75 mg/dL (5-11.8) H 02/27/19 19:00 Active Medications - Current Medications Current Medications: Generic Name Dose Route Start Last Admin Trade Name Freq PRN Reason Stop Dose Admin Acetaminophen 650 mg 02/25/19 21:11 Tylenol PO Q4H PRN Pain MILD(1-3)/Fever >100.5/ZIMMERMAN Aspirin 81 mg 02/25/19 22:00 03/01/19 11:39 Halfprin Ec PO 81 mg DAILY DAVID Administration Clopidogrel Bisulfate 75 mg 02/25/19 22:00 03/01/19 11:38 Plavix PO 75 mg DAILY DAVID Administration Famotidine 10 mg 02/25/19 22:00 03/01/19 11:38 Pepcid PO 10 mg BID DAVID Administration Heparin Sodium (Porcine) 5,000 unit 02/25/19 22:00 03/01/19 11:39 Heparin SUB-Q 5,000 unit Q12HR DAVID Administration Hydromorphone HCl 0.5 mg 02/25/19 21:11 Dilaudid IV Q3H PRN Pain , Severe (7-10) Levetiracetam 750 mg 02/25/19 22:00 03/01/19 11:38 Keppra PO 750 mg BID DAVID Administration Metoprolol Tartrate 12.5 mg 02/28/19 10:00 03/01/19 11:38 Lopressor PO 12.5 mg BID DAVID Administration Ondansetron HCl 4 mg 02/25/19 21:11 Zofran IV Q8H PRN Nausea And Vomiting Oxycodone/Acetaminophen 1 tab 02/25/19 21:11 Percocet 5/325 PO Q6H PRN Pain, Moderate (4-6) Pravastatin Sodium 40 mg 02/25/19 22:00 02/28/19 23:23 Pravachol PO 40 mg QHS DAVID Administration Sodium Chloride 10 ml 02/25/19 22:00 03/01/19 11:40 Sodium Chloride Flush Syringe 10 Ml IV 10 ml BID DAVID Administration Sodium Chloride 10 ml 02/25/19 21:11 Sodium Chloride Flush Syringe 10 Ml IV PRN PRN LINE FLUSH Nutrition/Malnutrition Assess - Dietary Evaluation Nutrition/Malnutrition Findings: Nutrition Notes Start: 02/26/19 09:35 Freq: Status: Active Protocol: Document 02/26/19 09:35 LP (Rec: 02/26/19 09:42 LP [email or web address]) Nutrition Notes Need for 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 Pt has not touched breakfast this AM. Pt states able to drink water. Pt states he has notice wt loss but unsure of UBW. Noted temporal and orbital wasting. 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 Is patient on ventilator? No Is Patient Ambulatory and/or Out of Bed No REE-([facility]-confined to bed) 1738.548 Kcal/Kg value to use for calculation 30 Approximate Energy Requirements Using 2177 kcal/Kg Calculation Used for Recommendations Kcal/kg Additional Notes Protein needs are 87-109g (1.2 -1.5g/kg) Fluid needs are 1ml/kcal Nutrition Intervention Change Diet Order: Continue Renal Add Supplement/Snack (indicate name/kcal Nepro Vanilla BID /protein ) Provides kCal: 850 Provides Protein (gm) 38 Goal #1 Meet at least 80% of kcal and protein needs Goal #2 Wt gain/ maintenance Anticipated Discharge Needs: Renal with ONS BID to TID Follow-Up By: 03/02/19 Additional Comments Follow for intake, ONS tolerance
[2019-03-01] MEDS ORDERED: IMODIUM PO PRN (14:06)
[2019-03-01] MEDS: PRAVACHOL PO SCH (21:33)
[2019-03-02 07:45] LABS: Hematocrit 29.3 % (35.5-45.6); Hemoglobin 9.8 gm/dl (11.8-15.2); Mean Corpuscular HGB Conc 33 % (32-34); Mean Corpuscular Volume 85 fl (84-94); Platelet Count 125 K/mm3 (140-440); Red Blood Count 3.44 M/mm3 (3.65-5.03); Red Cell Distribution Width 14.6 % (13.2-15.2)
[2019-03-02 08:00] LABS: Calcium 9.5 mg/dL (8.4-10.2)
--- NOTE | 2019-03-02 08:12 | Hem/Onc Progress Note ---
Assessment and Plan 1. Anemia, leukopenia and thrombocytopenia. We will do deficiency investigations. MCV is not elevated. Either this could be deficiency or medication related or transient phenomena or this could be myelodysplastic syndrome. We will need to follow the blood count to see the trend. 2. New end-stage renal disease. The patient may need dialysis. Nephrology is following. 3. Coronary artery disease. 4. History of gastroesophageal reflux disease. 5. History of hyperlipidemia. 6. History of seizure disorder. There is mention of dementia and hypotension in the notes, he has a pacemaker. 03/02 - d/w dr mandujano CKD may have a role in the cytopenia - OP follow up - Patient Problems (1) Anemia Current Visit: Yes Status: Acute Subjective Date of service: 03/02/19 Principal diagnosis: anemia Interval history: more awake Objective - Exam Narrative Exam: Pain none General appearance no acute distress Performance status limited self care Eyes EOM intact ENT hearing intact LNs - cervical not palpable Neck normal ROM Respiratory on BIPAP breath sounds CTA CVS S1 S2 + Extremities normal temperature General GI Soft non tender Rectal deferred Male - deferred Skin warm Musculoskeletal generalized weakness Neurologically moves all extremities - Constitutional Vitals: Last Vital Signs Temp 98.5 F 03/02/19 03:51 Pulse 74 03/02/19 03:51 Resp 19 03/02/19 03:51 BP 103/69 03/02/19 03:51 Pulse Ox 98 03/02/19 03:51 - Labs Lab Results: Laboratory Results - last 24 hr 03/01/19 03/01/19 03/02/19 10:32 10:32 06:54 Sodium 139 Potassium 4.2 Chloride 101.6 Carbon Dioxide 21 L Anion Gap 21 BUN 80 H Creatinine 5.2 H Estimated GFR 13 BUN/Creatinine Ratio 15 Glucose 116 H Osmolality 313 Uric Acid 7.5 Calcium 9.5 Medications & Allergies - Medications Allergies/Adverse Reactions: Allergies No Known Allergies Allergy (Verified 02/25/19 14:44) Home Medications: Home Medications Medication Instructions Recorded Confirmed Last Taken Type Amlodipine Besylate 10 mg PO DAILY 10/11/16 02/26/19 09/04/17 History Aspirin EC 81 mg PO DAILY 10/11/16 02/26/19 02/24/19 History Clopidogrel Bisulfate [Clopidogrel] 75 mg PO DAILY 10/11/16 02/26/19 02/24/19 History Famotidine 40 mg PO BID 10/11/16 02/26/19 02/24/19 History Lovastatin 40 mg PO HS 10/11/16 02/26/19 02/24/19 History Metoprolol Tartrate 50 mg PO BID 10/11/16 02/26/19 02/24/19 History Vit D3/Folic Acid/B2/B6/B12 1 each PO DAILY 10/11/16 02/26/19 09/04/17 History [Folgard Tablet] Sodium Bicarbonate 650 mg PO TID 11/11/17 02/26/19 02/24/19 History Ondansetron [Zofran Odt] 4 mg PO Q8HR PRN #14 tab.rapdis 06/09/18 02/26/19 Unknown Rx Furosemide 40 mg PO QDAC 02/25/19 02/26/19 02/24/19 History hydrALAZINE [Apresoline TAB] 100 mg PO BID 02/25/19 02/26/19 02/24/19 History levETIRAcetam [Keppra TAB] 750 mg PO BID 02/25/19 02/26/19 02/24/19 History Active Medications: Generic Name Dose Route Start Last Admin Trade Name Freq PRN Reason Stop Dose Admin Acetaminophen 650 mg 02/25/19 21:11 Tylenol PO Q4H PRN Pain MILD(1-3)/Fever >100.5/ZIMMERMAN Aspirin 81 mg 02/25/19 22:00 03/01/19 11:39 Halfprin Ec PO 81 mg DAILY DAVID Administration Clopidogrel Bisulfate 75 mg 02/25/19 22:00 03/01/19 11:38 Plavix PO 75 mg DAILY DAVID Administration Famotidine 10 mg 02/25/19 22:00 03/01/19 21:33 Pepcid PO 10 mg BID DAVID Administration Heparin Sodium (Porcine) 5,000 unit 02/25/19 22:00 03/01/19 21:33 Heparin SUB-Q 5,000 unit Q12HR DAVID Administration Hydromorphone HCl 0.5 mg 02/25/19 21:11 Dilaudid IV Q3H PRN Pain , Severe (7-10) Levetiracetam 750 mg 02/25/19 22:00 03/01/19 21:32 Keppra PO 750 mg BID DAVID Administration Loperamide HCl 2 mg 03/01/19 14:06 03/01/19 15:10 Imodium PO 2 mg Q2H PRN Administration Diarrhea Metoprolol Tartrate 12.5 mg 02/28/19 10:00 03/01/19 21:32 Lopressor PO 12.5 mg BID DAVID Administration Ondansetron HCl 4 mg 02/25/19 21:11 Zofran IV Q8H PRN Nausea And Vomiting Oxycodone/Acetaminophen 1 tab 02/25/19 21:11 Percocet 5/325 PO Q6H PRN Pain, Moderate (4-6) Pravastatin Sodium 40 mg 02/25/19 22:00 03/01/19 21:33 Pravachol PO 40 mg QHS DAVID Administration Sodium Chloride 10 ml 02/25/19 22:00 03/01/19 21:34 Sodium Chloride Flush Syringe 10 Ml IV 10 ml BID DAVID Administration Sodium Chloride 10 ml 02/25/19 21:11 Sodium Chloride Flush Syringe 10 Ml IV PRN PRN LINE FLUSH
[2019-03-02] MEDS: KEPPRA PO SCH ×2 (10:00→22:28)
[2019-03-02] MEDS: HEPARIN SUB-Q SCH ×2 (10:00→22:30)
[2019-03-02] MEDS: LOPRESSOR PO SCH ×2 (10:00→22:29)
[2019-03-02] MEDS: HALFPRIN EC PO SCH (10:00)
[2019-03-02] MEDS: PLAVIX PO SCH (10:00)
[2019-03-02] MEDS: PEPCID PO SCH ×2 (10:00→22:28)
[2019-03-02] MEDS: SODIUM CHLORIDE FLUSH SYRINGE 10 ML IV SCH ×2 (10:00→22:30)
[2019-03-02] MEDS ORDERED: LASIX IV ONE (10:00)
[2019-03-02 12:42] LABS: Hepatitis C Virus Antibody Non-Reactive (NonReactive)
[2019-03-02 13:20] LABS: Hepatitis B Surface Antigen Non-Reactive (Negative)
--- NOTE | 2019-03-02 13:29 | Progress Note ---
Assessment and Plan Assessment and plan: Patient is a 83 yo man with a history of CAD s/p CABG, PPM, hypertension, dementia and childhood sz who presents with worsening renal function from Dr. De's [facility] [employer] office New ESRD: HD initiation per Nephrology Acute metabolic encephalopathy: treat the renal failure CAD: continue plavix GERD: continue pepcid Dyslipidemia: statin Seizure disorder: continue Keppra and monitor closely Relative hypotension: adjust bp medications Family meeting done today, hemodialysis to start d/w Dr. Arcos, consulted Dr. Young History Interval history: Patient was seen and examined. Follow-up on current diagnosis. No overnight events reported to me. Patient denies any chest pain, shortness breath, nausea/vomiting or severe headaches. Imaging, nursing note, chart, labs and old chart reviewed. CODE MET called due to lethargy and unresponsive staring episode. He keeps falling asleep. Hospitalist Physical - Physical exam Narrative exam: Gen: chronic disability, lethargic, drowsy but arousable. HEENT: NCAT, EOMI, PERRL, OP Clear Neck: supple, no adenopathy, no thyromegaly, no JVD CVS/Heart: RRR, normal S1S2, pulses present bilaterally Chest/Lungs: CTA B, Symmetrical chest expansion, good air entry bilaterally GI/Abdomen: soft, NTND, good bowel sounds, no guarding or rebound /Bladder: no suprapubic tenderness, no CVA or paraspinal tenderness Extermity/Skin: no c/c/e, no obvious rash MSK: FROM x 4 Neuro: CN 2-12 grossly intact, no new focal deficits Psych: calm - Constitutional Vitals: Temp Pulse Resp BP Pulse Ox 98.8 F 66 16 115/69 97 03/02/19 07:17 03/02/19 10:00 03/02/19 07:17 03/02/19 07:17 03/02/19 07:17 Results - Labs CBC & Chem 7: 03/02/19 06:54 03/02/19 06:54 Labs: Laboratory Last Values WBC 3.8 K/mm3 (4.5-11.0) L 03/02/19 06:54 RBC 3.44 M/mm3 (3.65-5.03) L 03/02/19 06:54 Hgb 9.8 gm/dl (11.8-15.2) L 03/02/19 06:54 Hct 29.3 % (35.5-45.6) L 03/02/19 06:54 MCV 85 fl (84-94) 03/02/19 06:54 MCH 28 pg (28-32) 03/02/19 06:54 MCHC 33 % (32-34) 03/02/19 06:54 RDW 14.6 % (13.2-15.2) 03/02/19 06:54 Plt Count 125 K/mm3 (140-440) L 03/02/19 06:54 Lymph % (Auto) 23.7 % (13.4-35.0) 02/27/19 10:15 [place] % (Auto) 11.5 % (0.0-7.3) H 02/27/19 10:15 Eos % (Auto) 3.0 % (0.0-4.3) 02/27/19 10:15 Baso % (Auto) 0.4 % (0.0-1.8) 02/27/19 10:15 Lymph # 1.0 K/mm3 (1.2-5.4) L 02/27/19 10:15 [place] # 0.5 K/mm3 (0.0-0.8) 02/27/19 10:15 Eos # 0.1 K/mm3 (0.0-0.4) 02/27/19 10:15 Baso # 0.0 K/mm3 (0.0-0.1) 02/27/19 10:15 Seg Neutrophils % 61.4 % (40.0-70.0) 02/27/19 10:15 Seg Neutrophils # 2.5 K/mm3 (1.8-7.7) 02/27/19 10:15 PT 13.3 Sec. (12.2-14.9) 02/27/19 10:15 INR 1.04 (0.87-1.13) 02/27/19 10:15 Sodium 139 mmol/L (137-145) 03/02/19 06:54 Potassium 4.2 mmol/L (3.6-5.0) 03/02/19 06:54 Chloride 101.6 mmol/L (98-107) 03/02/19 06:54 Carbon Dioxide 21 mmol/L (22-30) L 03/02/19 06:54 21 mmol/L 03/02/19 06:54 BUN 80 mg/dL (9-20) H 03/02/19 06:54 5.2 mg/dL (0.8-1.5) H 03/02/19 06:54 Estimated GFR 13 ml/min 03/02/19 06:54 15 % 03/02/19 06:54 Glucose 116 mg/dL (75-100) H 03/02/19 06:54 POC Glucose 182 (70-105) H 02/27/19 10:08 5.4 % (4-6) 02/25/19 21:47 313 Mosm/kg 03/01/19 10:32 7.5 mg/dL (3.5-7.6) 03/01/19 10:32 Calcium 9.5 mg/dL (8.4-10.2) 03/02/19 06:54 Phosphorus 4.30 mg/dL (2.5-4.5) 02/25/19 14:50 Iron 42 ug/dL (49-181) L 02/28/19 12:32 TIBC 192 mcg/dL (250-450) L 02/28/19 12:32 337.9 ng/mL (13.0-400.0) 02/28/19 12:32 0.40 mg/dL (0.1-1.2) 02/26/19 05:55 AST 17 units/L (5-40) 02/26/19 05:55 ALT 7 units/L (7-56) 02/26/19 05:55 49 units/L (35-129) 02/26/19 05:55 0.079 ng/mL (0.00-0.029) H 02/28/19 00:09 NT-Pro-B Natriuret Pep 6375 pg/mL (0-900) H 02/27/19 10:15 7.2 g/dL (6.3-8.2) 02/26/19 05:55 3.7 g/dL (3.9-5) L 02/26/19 05:55 1.1 % 02/26/19 05:55 Triglycerides 39 mg/dL (2-149) 02/27/19 17:00 Cholesterol 121 mg/dL (50-199) 02/27/19 17:00 68 mg/dL (50-130) 02/27/19 17:00 52 mg/dL (40-59) 02/27/19 17:00 2.32 % 02/27/19 17:00 Vitamin B12 316.3 pg/mL (211-911) 02/28/19 12:32 16.17 ng/mL (7.3-26.0) 02/28/19 12:32 Straw (Yellow) 02/25/19 18:35 Clear (Clear) 02/25/19 18:35 7.0 (5.0-7.0) 02/25/19 18:35 Ur Specific [place] 1.008 (1.003-1.030) 02/25/19 18:35 30 mg/dl mg/dL (Negative) 02/25/19 18:35 Neg mg/dL (Negative) 02/25/19 18:35 Neg mg/dL (Negative) 02/25/19 18:35 Neg (Negative) 02/25/19 18:35 Neg (Negative) 02/25/19 18:35 Neg (Negative) 02/25/19 18:35 < 2.0 mg/dL (<2.0) 02/25/19 18:35 Ur Leukocyte Esterase Neg (Negative) 02/25/19 18:35 1.0 /HPF (0.0-6.0) 02/25/19 18:35 1.0 /HPF (0.0-6.0) 02/25/19 18:35 1+ /HPF (Negative) 02/25/19 18:35 2500 ml 02/27/19 19:00 48.8 mg/dL (0.1-20.0) H 02/27/19 19:00 Ur Creatinine 24 Hour 1.2 (0.8-2.8) 02/27/19 19:00 Ur Total Protein 24 Hr 1875.00 mg/dL (2-200) H 02/27/19 19:00 112 mmol/L 02/25/19 18:35 75 mg/dL (5-11.8) H 02/27/19 19:00 Hepatitis A IgM Ab Non-reactive (NonReactive) 03/02/19 11:49 Hep Bs Antigen Non-reactive (Negative) 03/02/19 11:49 Hep B Core IgM Ab Non-reactive (NonReactive) 03/02/19 11:49 Non-reactive (NonReactive) 03/02/19 11:49 Active Medications - Current Medications Current Medications: Generic Name Dose Route Start Last Admin Trade Name Freq PRN Reason Stop Dose Admin Acetaminophen 650 mg 02/25/19 21:11 Tylenol PO Q4H PRN Pain MILD(1-3)/Fever >100.5/ZIMMERMAN Aspirin 81 mg 02/25/19 22:00 03/01/19 11:39 Halfprin Ec PO 81 mg DAILY DAVID Administration Clopidogrel Bisulfate 75 mg 02/25/19 22:00 03/01/19 11:38 Plavix PO 75 mg DAILY DAVID Administration Famotidine 10 mg 02/25/19 22:00 03/01/19 21:33 Pepcid PO 10 mg BID DAVID Administration Heparin Sodium (Porcine) 5,000 unit 02/25/19 22:00 03/01/19 21:33 Heparin SUB-Q 5,000 unit Q12HR DAVID Administration Hydromorphone HCl 0.5 mg 02/25/19 21:11 Dilaudid IV Q3H PRN Pain , Severe (7-10) Levetiracetam 750 mg 02/25/19 22:00 03/01/19 21:32 Keppra PO 750 mg BID DAVID Administration Loperamide HCl 2 mg 03/01/19 14:06 03/01/19 15:10 Imodium PO 2 mg Q2H PRN Administration Diarrhea Metoprolol Tartrate 12.5 mg 02/28/19 10:00 03/01/19 21:32 Lopressor PO 12.5 mg BID DAVID Administration Ondansetron HCl 4 mg 02/25/19 21:11 Zofran IV Q8H PRN Nausea And Vomiting Oxycodone/Acetaminophen 1 tab 02/25/19 21:11 Percocet 5/325 PO Q6H PRN Pain, Moderate (4-6) Pravastatin Sodium 40 mg 02/25/19 22:00 03/01/19 21:33 Pravachol PO 40 mg QHS DAVID Administration Sodium Chloride 10 ml 02/25/19 22:00 03/01/19 21:34 Sodium Chloride Flush Syringe 10 Ml IV 10 ml BID DAVID Administration Sodium Chloride 10 ml 02/25/19 21:11 Sodium Chloride Flush Syringe 10 Ml IV PRN PRN LINE FLUSH Nutrition/Malnutrition Assess - Dietary Evaluation Nutrition/Malnutrition Findings: Nutrition Notes Start: 02/26/19 09:35 Freq: Status: Active Protocol: Document 02/26/19 09:35 LP (Rec: 02/26/19 09:42 LP [id number]) Nutrition Notes Need for Assessment generated from: clinical support specialist Initial or Follow up Assessment Current Diagnosis Acute Kidney Injury,CKD(stage I-IV),Hypertension Current Diet Renal Labs/Tests BUN 56 Cr 4.2 Pertinent Medications Lasix Height 5 ft 11 in Weight 72.575 kg [place] Body Weight (kg) 78.18 BMI 22.3 Subjective/Other Information Screen for MST. 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 Pt has not touched breakfast this AM. Pt states able to drink water. Pt states he has notice wt loss but unsure of UBW. Noted temporal and orbital wasting. 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 Is patient on ventilator? No Is Patient Ambulatory and/or Out of Bed No REE-([place]-confined to bed) 1738.548 Kcal/Kg value to use for calculation 30 Approximate Energy Requirements Using 2177 kcal/Kg Calculation Used for Recommendations Kcal/kg Additional Notes Protein needs are 87-109g (1.2 -1.5g/kg) Fluid needs are 1ml/kcal Nutrition Intervention Change Diet Order: Continue Renal Add Supplement/Snack (indicate name/kcal Nepro Vanilla BID /protein ) Provides kCal: 850 Provides Protein (gm) 38 Goal #1 Meet at least 80% of kcal and protein needs Goal #2 Wt gain/ maintenance Anticipated Discharge Needs: Renal with ONS BID to TID Follow-Up By: 03/02/19 Additional Comments Follow for intake, ONS tolerance
[2019-03-02] MEDS ORDERED: HEPARIN/NS 5000 UNIT/500ML(CATH LAB) 500 ML IR ONE (14:33)
[2019-03-02] MEDS ORDERED: HEPARIN 10,000 UNITS/10 ML ONE (14:33)
[2019-03-02] MEDS ORDERED: ANCEF/STERILE WATER 2 GM/20 ML 2 GM/20 ML SYRINGE IV ONE (14:34)
[2019-03-02] MEDS ORDERED: NACL 0.9% 500 ML 500 ML IV SCH (15:00)
--- NOTE | 2019-03-02 15:01 | Consultation ---
History of Present Illness - Reason for Consult Consult date: 03/02/19 - History of Present Illness He is 83-year-old Black male with medical history significant for hypertension, chronic kidney disease stage IV. He was evaluated by his life science technical officer prior to his admission and his renal was function was noted to have worsened. He was subsequently admitted due to worsening renal function and need for hemodialysis. According to the prior to admission, he had become a little more confused than usual and was becoming less responsive; he does have history of dementia and seizures. A vascular surgery consult has been requested for placement of hemodialysis access. Past History Past Medical History: CAD, cancer (prostate), ESRD, hypertension, hyperlipidemia, renal failure, seizures, other (Dementia) Past Surgical History: CABG, Other (prostate seed implants) Social history: , lives with family. denies: smoking Family history: no significant family history Medications and Allergies Allergies Allergy/AdvReac Type Severity Reaction Status Date / Time No Known Allergies Allergy Verified 02/25/19 14:44 Home Medications Medication Instructions Recorded Confirmed Last Taken Type Amlodipine Besylate 10 mg PO DAILY 10/11/16 02/26/19 09/04/17 History Aspirin EC 81 mg PO DAILY 10/11/16 02/26/19 02/24/19 History Clopidogrel Bisulfate [Clopidogrel] 75 mg PO DAILY 10/11/16 02/26/19 02/24/19 History Famotidine 40 mg PO BID 10/11/16 02/26/19 02/24/19 History Lovastatin 40 mg PO HS 10/11/16 02/26/19 02/24/19 History Metoprolol Tartrate 50 mg PO BID 10/11/16 02/26/19 02/24/19 History Vit D3/Folic Acid/B2/B6/B12 1 each PO DAILY 10/11/16 02/26/19 09/04/17 History [Folgard Tablet] Sodium Bicarbonate 650 mg PO TID 11/11/17 02/26/19 02/24/19 History Ondansetron [Zofran Odt] 4 mg PO Q8HR PRN #14 tab.rapdis 06/09/18 02/26/19 Unknown Rx Furosemide 40 mg PO QDAC 02/25/19 02/26/19 02/24/19 History hydrALAZINE [Apresoline TAB] 100 mg PO BID 06/02/26/19 02/24/19 History levETIRAcetam [Keppra TAB] 750 mg PO BID 02/25/19 02/26/19 02/24/19 History Active Meds: Active Medications Acetaminophen (Tylenol) 650 mg PO Q4H PRN PRN Reason: Pain MILD(1-3)/Fever >100.5/ZIMMERMAN Aspirin (Halfprin Ec) 81 mg PO DAILY [facility] Last Admin: 03/01/19 11:39 Dose: 81 mg Documented by: Clopidogrel Bisulfate (Plavix) 75 mg PO DAILY [facility] Last Admin: 03/01/19 11:38 Dose: 75 mg Documented by: Famotidine (Pepcid) 10 mg PO BID [facility] Last Admin: 03/01/19 21:33 Dose: 10 mg Documented by: Heparin Sodium (Porcine) (Heparin) 5,000 unit SUB-Q Q12HR [facility] Last Admin: 03/01/19 21:33 Dose: 5,000 unit Documented by: Hydromorphone HCl (Dilaudid) 0.5 mg IV Q3H PRN PRN Reason: Pain , Severe (7-10) Sodium Chloride (Nacl 0.9% 500 Ml) 500 mls @ 50 mls/hr IV DIRECT [facility] Levetiracetam (Keppra) 750 mg PO BID [facility] Last Admin: 03/01/19 21:32 Dose: 750 mg Documented by: Loperamide HCl (Imodium) 2 mg PO Q2H PRN PRN Reason: Diarrhea Last Admin: 03/01/19 15:10 Dose: 2 mg Documented by: Metoprolol Tartrate (Lopressor) 12.5 mg PO BID [facility] Last Admin: 03/01/19 21:32 Dose: 12.5 mg Documented by: Ondansetron HCl (Zofran) 4 mg IV Q8H PRN PRN Reason: Nausea And Vomiting Oxycodone/Acetaminophen (Percocet 5/325) 1 tab PO Q6H PRN PRN Reason: Pain, Moderate (4-6) Pravastatin Sodium (Pravachol) 40 mg PO QHS [facility] Last Admin: 03/01/19 21:33 Dose: 40 mg Documented by: Sodium Chloride (Sodium Chloride Flush Syringe 10 Ml) 10 ml IV BID [facility] Last Admin: 03/01/19 21:34 Dose: 10 ml Documented by: Sodium Chloride (Sodium Chloride Flush Syringe 10 Ml) 10 ml IV PRN PRN PRN Reason: LINE FLUSH Review of Systems Constitutional: no weight loss, no fever, no chills Cardiovascular: no chest pain, no edema, no shortness of breath Respiratory: no cough, no shortness of breath Integumentary: no rash, no sores, no wounds Neurological: confusion, memory loss Exam - Constitutional Vitals: Temp Pulse Resp BP Pulse Ox 98.8 F 66 16 115/69 97 03/02/19 07:17 03/02/19 10:00 03/02/19 07:17 03/02/19 07:17 03/02/19 07:17 General appearance: Present: well-nourished - EENT ENT: hearing intact, clear oral mucosa - Neck Neck: Present: supple, normal ROM - Respiratory Respiratory effort: other (nonlabored at rest) - Extremities Extremities: No edema, normal temperature, normal color - Psychiatric Psychiatric: no memory intact, cooperative - Neurologic Neurologic: no focal deficits, moves all extremities Results - Labs CBC & Chem 7: 03/02/19 06:54 03/02/19 06:54 Labs: Abnormal lab results 03/02/19 03/02/19 Range/Units 06:54 06:54 WBC 3.8 L (4.5-11.0) K/mm3 RBC 3.44 L (3.65-5.03) M/mm3 Hgb 9.8 L (11.8-15.2) gm/dl Hct 29.3 L (35.5-45.6) % Plt Count 125 L (140-440) K/mm3 Carbon Dioxide 21 L (22-30) mmol/L BUN 80 H (9-20) mg/dL Creatinine 5.2 H (0.8-1.5) mg/dL Glucose 116 H (75-100) mg/dL Assessment and Plan Renal Failure He has chronic renal disease which has worsened. Expected to start hemodialysis. Plan for placement of permacath today. Risks, benefits and alternatives discussed in detail with patient and spouse. Agree to proceed with procedure.
[2019-03-02] MEDS ORDERED: NACL 0.9% 500 ML 500 ML ONE (16:51)
[2019-03-02] MEDS ORDERED: SUBLIMAZE ONE (16:51)
[2019-03-02] MEDS ORDERED: VERSED ONE (16:51)
[2019-03-02] MEDS: XYLOCAINE 1%/ EPI 1:100,000 INFILTRATI ONE ×2 (17:04→17:08)
--- NOTE | 2019-03-02 17:24 | Operative Report ---
Operative Report Operative Report: Right Jugular Permacath Date of procedure: 03/02/2019 Pre-operative diagnosis: ESRD Post-operative diagnosis: same Procedure name(s): 1. US guided puncture of the right internal jugular vein 2. Placement of right internal jugular permacath (Glidepath 23cm) 3. Fluoroscopic supervision Surgeon: Jaspreet Young MD, FACS Shirt Creaser: none Anesthesia: local with sedation; Sedation start: 1705 Sedation end: 1720 Total sedation time: 15 minutes or 1 anesthesia units EBL: minimal Operative indication: Patient is a 83 yo man who requires hemodialysis access. Findings: Good flow from both ports. Catheter located at the cavoatrial junction. Procedure: The patient was placed on the table in the supine position. The area over the right neck and chest was prepped with ChloraPrep solution and draped in usual sterile fashion. 2% lidocaine was used for local anesthesia. Under real-time ultrasound guidance the right internal jugular vein was identified and cannulated. A guidewire was advanced into the central circulation. A tunnel was made over the anterior chest using the tunneling device in the kit. The catheter was then tunneled between the 2 incisions. Using a series of dilators, the track into the jugular vein was dilated. The introducer sheath was then pl aced. The catheter was placed through the introducer sheath which was then removed. The catheter tip was placed at the cavoatrial junction. The catheters were aspirated with excellent flow from both ports. Both ports flushed easily. They were then filled to their stated volume with 1000 unit per milliliter heparin. Closure at the insertion site was done with 4-0 subcuticular Monocryl. The catheter was sewn to the skin with 2-0 Proline. Sterile dressings were applied. The patient tolerated the procedure well.
--- NOTE | 2019-03-02 18:54 | Progress Note ---
Assessment and Plan - Patient Problems (1) Acute renal failure superimposed on stage 4 chronic kidney disease Current Visit: Yes Status: Acute Qualifiers: Acute renal failure type: unspecified Qualified Code(s): N17.9 - Acute kidney failure, unspecified; N18.4 - Chronic kidney disease, stage 4 (severe) Plan to address problem: Acute renal failure on CKD stage 4 baseline creatinine flunctutes between 3-3.5mg/dl creatinine on admission 4.4mg/dl current creatinine worsening from : 4.2-5.2 mg/dl non oliguric Will obtain renal US Discussed in detail with has some dementia at baseline and mental status waxes and wanes No acute electrolyte abnormalities and creatinine is not worsening today. 24hr urine collection for creatinine to assess renal function GFR : 17ml/min though this may be an overstimation Renal function worsening since then Patient was NPO for perm cath today CXR reviewed with cardiomegaly and some pulmonary congestion Will resume Lasix 40mg IV daily for now. Dr. Arcos had offered short trial of HD to patient and his (2) Dementia Current Visit: No Status: Chronic Plan to address problem: Dementia waxing and waning mental status at risk for delireum Will monitor closely Mental status improved today. (3) HTN (hypertension) Current Visit: No Status: Chronic Plan to address problem: HTN: uncontrolled. Ensure medications. (4) Metabolic acidosis Current Visit: Yes Status: Acute Plan to address problem: Mild Metabolic acidosis : 2/2 CKD sodium bicarb 650mg bid. Subjective Interval history: 83-year-old with medical history significant for hypertension, chronic kidney disease stage IV admitted due to concern for worsening renal function according to the patient has baseline dementia also has history of seizures Patient seen today, Denies any orthopnea or PND. Denies any nausea or vomitting is awake and alert Objective - Vital Signs Vital signs: Vital Signs - 12hr 03/02/19 03/02/19 07:17 10:00 Temperature 98.8 F Pulse Rate 70 66 Respiratory 16 Rate Blood Pressure 115/69 O2 Sat by Pulse 97 Oximetry - General Appearance General appearance: well-developed, well-nourished EENT: ATNC, PERRL, mucous membranes moist Neck: no JVD Respiratory: Present: Decreased Breath Sounds Cardiology: regular, S1S2 Gastrointestinal: normal, normoactive bowel sounds Integumentary: no rash Neurologic: CN 3-12 intact, other (awake and alert. ) Musculoskeletal: deferred Psychiatric: mood/affect appropriate - Lab 03/02/19 06:54 03/02/19 06:54 Most recent lab results Calcium 9.5 mg/dL (8.4-10.2) 03/02/19 06:54 Phosphorus 4.30 mg/dL (2.5-4.5) 02/25/19 14:50 48.8 mg/dL (0.1-20.0) H 02/27/19 19:00 Ur Total Protein 24 Hr 1875.00 mg/dL (2-200) H 02/27/19 19:00 112 mmol/L 02/25/19 18:35 75 mg/dL (5-11.8) H 02/27/19 19:00 Medications & Allergies - Medications Allergies/Adverse Reactions: Allergies No Known Allergies Allergy (Verified 02/25/19 14:44) Home Medications: Home Medications Medication Instructions Recorded Confirmed Last Taken Type Amlodipine Besylate 10 mg PO DAILY 10/11/16 02/26/19 09/04/17 History Aspirin EC 81 mg PO DAILY 10/11/16 02/26/19 02/24/19 History Clopidogrel Bisulfate [Clopidogrel] 75 mg PO DAILY 10/11/16 02/26/19 02/24/19 History Famotidine 40 mg PO BID 10/11/16 02/26/19 02/24/19 History Lovastatin 40 mg PO HS 10/11/16 02/26/19 02/24/19 History Metoprolol Tartrate 50 mg PO BID 10/11/16 02/26/19 02/24/19 History Vit D3/Folic Acid/B2/B6/B12 1 each PO DAILY 10/11/16 02/26/19 09/04/17 History [Folgard Tablet] Sodium Bicarbonate 650 mg PO TID 11/11/17 02/26/19 02/24/19 History Ondansetron [Zofran Odt] 4 mg PO Q8HR PRN #14 tab.rapdis 06/09/18 02/26/19 Unknown Rx Furosemide 40 mg PO QDAC 02/25/19 02/26/19 02/24/19 History hydrALAZINE [Apresoline TAB] 100 mg PO BID 02/25/19 02/26/1902/24/19 History levETIRAcetam [Keppra TAB] 750 mg PO BID 02/25/19 02/26/19 02/24/19 History Active Medications: Generic Name Dose Route Start Last Admin Trade Name Freq PRN Reason Stop Dose Admin Acetaminophen 650 mg 02/25/19 21:11 Tylenol PO Q4H PRN Pain MILD(1-3)/Fever >100.5/ZIMMERMAN Aspirin 81 mg 02/25/19 22:00 03/01/19 11:39 Halfprin Ec PO 81 mg DAILY DAVID Administration Clopidogrel Bisulfate 75 mg 02/25/19 22:00 03/01/19 11:38 Plavix PO 75 mg DAILY DAVID Administration Famotidine 10 mg 02/25/19 22:00 03/01/19 21:33 Pepcid PO 10 mg BID DAVID Administration Heparin Sodium (Porcine) 5,000 unit 02/25/19 22:00 03/01/19 21:33 Heparin SUB-Q 5,000 unit Q12HR DAVID Administration Hydromorphone HCl 0.5 mg 02/25/19 21:11 Dilaudid IV Q3H PRN Pain , Severe (7-10) Sodium Chloride 500 mls @ 50 mls/hr 03/02/19 15:00 Nacl 0.9% 500 Ml IV DIRECT DAVID Levetiracetam 750 mg 02/25/19 22:00 03/01/19 21:32 Keppra PO 750 mg BID DAVID Administration Loperamide HCl 2 mg 03/01/19 14:06 03/01/19 15:10 Imodium PO 2 mg Q2H PRN Administration Diarrhea Metoprolol Tartrate 12.5 mg 02/28/19 10:00 03/01/19 21:32 Lopressor PO 12.5 mg BID DAVID Administration Ondansetron HCl 4 mg 02/25/19 21:11 Zofran IV Q8H PRN Nausea And Vomiting Oxycodone/Acetaminophen 1 tab 02/25/19 21:11 Percocet 5/325 PO Q6H PRN Pain, Moderate (4-6) Pravastatin Sodium 40 mg 02/25/19 22:00 03/01/19 21:33 Pravachol PO 40 mg QHS DAVID Administration Sodium Chloride 10 ml 02/25/19 22:00 03/01/19 21:34 Sodium Chloride Flush Syringe 10 Ml IV 10 ml BID DAVID Administration Sodium Chloride 10 ml 02/25/19 21:11 Sodium Chloride Flush Syringe 10 Ml IV PRN PRN LINE FLUSH
[2019-03-02] MEDS: PRAVACHOL PO SCH (22:30)
--- NOTE | 2019-03-03 08:07 | Hem/Onc Progress Note ---
Assessment and Plan 1. Anemia, leukopenia and thrombocytopenia. deficiency investigations. MCV is not elevated. Either this could be deficiency or medication related or transient phenomena or this could be myelodysplastic syndrome. We will need to follow the blood count to see the trend. 2. New end-stage renal disease. The patient may need dialysis. Nephrology is following. 3. Coronary artery disease. 4. History of gastroesophageal reflux disease. 5. History of hyperlipidemia. 6. History of seizure disorder. There is mention of dementia and hypotension in the notes, he has a pacemaker. 03/03 -CKD may have a role in the cytopenia - OP follow up - Patient Problems (1) Anemia Current Visit: Yes Status: Acute Subjective Date of service: 03/03/19 Principal diagnosis: anemia Interval history: no bleeding Objective - Exam Narrative Exam: Pain none General appearance no acute distress Performance status limited self care Eyes EOM intact ENT hearing intact LNs - cervical not palpable Neck normal ROM Respiratory on BIPAP breath sounds CTA CVS S1 S2 + Extremities normal temperature General GI Soft non tender Rectal deferred Male - deferred Skin warm Musculoskeletal generalized weakness Neurologically moves all extremities - Constitutional Vitals: Last Vital Signs Temp 98.0 F 03/03/19 04:14 Pulse 84 03/03/19 04:14 Resp 18 03/03/19 04:14 BP 126/77 03/03/19 04:14 Pulse Ox 98 03/03/19 04:14 - Labs Lab Results: Laboratory Results - last 24 hr 03/02/19 03/02/19 06:54 11:49 WBC 3.8 L RBC 3.44 L Hgb 9.8 L Hct 29.3 L MCV 85 MCH 28 MCHC 33 RDW 14.6 Plt Count 125 L Hepatitis A IgM Ab Non-reactive Hep Bs Antigen Non-reactive Hep B Core IgM Ab Non-reactive Hepatitis C Antibody Non-reactive Medications & Allergies - Medications Allergies/Adverse Reactions: Allergies No Known Allergies Allergy (Verified 02/25/19 14:44) Home Medications: Home Medications Medication Instructions Recorded Confirmed Last Taken Type Amlodipine Besylate 10 mg PO DAILY 10/11/16 02/26/19 09/04/17 History Aspirin EC 81 mg PO DAILY 10/11/16 02/26/19 02/24/19 History Clopidogrel Bisulfate [Clopidogrel] 75 mg PO DAILY 10/11/16 02/26/19 02/24/19 History Famotidine 40 mg PO BID 10/11/16 02/26/19 02/24/19 History Lovastatin 40 mg PO HS 10/11/16 02/26/19 02/24/19 History Metoprolol Tartrate 50 mg PO BID 10/11/16 02/26/19 02/24/19 History Vit D3/Folic Acid/B2/B6/B12 1 each PO DAILY 10/11/16 02/26/19 09/04/17 History [Folgard Tablet] Sodium Bicarbonate 650 mg PO TID 11/11/17 02/26/19 02/24/19 History Ondansetron [Zofran Odt] 4 mg PO Q8HR PRN #14 tab.rapdis 06/09/18 02/26/19 Unknown Rx Furosemide 40 mg PO QDAC 02/25/19 02/26/19 02/24/19 History hydrALAZINE [Apresoline TAB] 100 mg PO BID 02/25/19 02/26/19 02/24/19 History levETIRAcetam [Keppra TAB] 750 mg PO BID 02/25/19 02/26/19 02/24/19 History Active Medications: Generic Name Dose Route Start Last Admin Trade Name Freq PRN Reason Stop Dose Admin Acetaminophen 650 mg 02/25/19 21:11 Tylenol PO Q4H PRN Pain MILD(1-3)/Fever >100.5/ZIMMERMAN Aspirin 81 mg 02/25/19 22:00 03/02/19 10:00 Halfprin Ec PO Not Given DAILY [facility] Clopidogrel Bisulfate 75 mg 02/25/19 22:00 03/02/19 10:00 Plavix PO Not Given DAILY [facility] Famotidine 10 mg 02/25/19 22:00 03/02/19 22:28 Pepcid PO 10 mg BID [facility] Administration Heparin Sodium (Porcine) 5,000 unit 02/25/19 22:00 03/02/19 22:30 Heparin SUB-Q 5,000 unit Q12HR [facility] Administration Hydromorphone HCl 0.5 mg 02/25/19 21:11 Dilaudid IV Q3H PRN Pain , Severe (7-10) Sodium Chloride 500 mls @ 50 mls/hr 03/02/19 15:00 Nacl 0.9% 500 Ml IV DIRECT [facility]ID Levetiracetam 750 mg 02/25/19 22:00 03/02/19 22:28 Keppra PO 750 mg BID [facility] Administration Loperamide HCl 2 mg 03/01/19 14:06 03/01/19 15:10 Imodium PO 2 mg Q2H PRN Administration Diarrhea Metoprolol Tartrate 12.5 mg 02/28/19 10:00 03/02/19 22:29 Lopressor PO 12.5 mg BID [facility] Administration Ondansetron HCl 4 mg 02/25/19 21:11 Zofran IV Q8H PRN Nausea And Vomiting Oxycodone/Acetaminophen 1 tab 02/25/19 21:11 Percocet 5/325 PO Q6H PRN Pain, Moderate (4-6) Pravastatin Sodium 40 mg 02/25/19 22:00 03/02/19 22:30 Pravachol PO 40 mg QHS DAVID Administration Sodium Chloride 10 ml 02/25/19 22:00 03/02/19 22:30 Sodium Chloride Flush Syringe 10 Ml IV 10 ml BID [facility] Administration Sodium Chloride 10 ml 02/25/19 21:11 Sodium Chloride Flush Syringe 10 Ml IV PRN PRN LINE FLUSH
[2019-03-03 09:53] LABS: Calcium 10.1 mg/dL (8.4-10.2)
[2019-03-03] MEDS: KEPPRA PO SCH ×2 (10:30→21:42)
[2019-03-03] MEDS: PEPCID PO SCH ×2 (11:27→21:41)
[2019-03-03] MEDS: PLAVIX PO SCH (11:28)
[2019-03-03] MEDS: HALFPRIN EC PO SCH (11:29)
[2019-03-03] MEDS: LOPRESSOR PO SCH ×2 (11:31→21:41)
[2019-03-03] MEDS: HEPARIN SUB-Q SCH ×2 (11:38→21:43)
[2019-03-03] MEDS: SODIUM CHLORIDE FLUSH SYRINGE 10 ML IV SCH ×2 (11:43→21:43)
[2019-03-03] MEDS ORDERED: LASIX PO SCH (14:04)
--- NOTE | 2019-03-03 14:09 | Progress Note ---
Assessment and Plan - Patient Problems (1) Acute renal failure superimposed on stage 4 chronic kidney disease Current Visit: Yes Status: Acute Qualifiers: Acute renal failure type: unspecified Qualified Code(s): N17.9 - Acute kidney failure, unspecified; N18.4 - Chronic kidney disease, stage 4 (severe) Plan to address problem: Acute renal failure on CKD stage 4 now appears dialysis dependent with Possible ESRD. baseline creatinine flunctutes between 3-3.5mg/dl creatinine on admission 4.4mg/dl current creatinine worsening from : 4.2-5.2 mg/dl non oliguric reviewed renal US Discussed in detail with has some dementia at baseline and mental status waxes and wanes No acute electrolyte abnormalities and creatinine is not worsening today. 24hr urine collection for creatinine to assess renal function GFR : 17ml/min though this may be an overstimation Renal function worsening since then Ps/p perm cath placement. CXR reviewed with cardiomegaly and some pulmonary congestion Will resume Lasix 60mg PO daily for now. Dr. Arcos had offered short trial of HD to patient and his Needs outpatient dialysis placement Discussed with patients continue HD MWF Social work to assist with dialysis placement. (2) Dementia Current Visit: No Status: Chronic Plan to address problem: Dementia waxing and waning mental status at risk for delireum Will monitor closely Mental status improved today. (3) HTN (hypertension) Current Visit: No Status: Chronic Plan to address problem: HTN: uncontrolled. Ensure medications. (4) Metabolic acidosis Current Visit: Yes Status: Acute Plan to address problem: Mild Metabolic acidosis : 2/2 CKD discontinue sodium bicarb 650mg bid. currently on hemodialysis. Subjective Principal diagnosis: anemia Interval history: 83-year-old with medical history significant for hypertension, chronic kidney disease stage IV admitted due to concern for worsening renal function according to the patient has baseline dementia also has history of seizures Patient seen today, Denies any orthopnea or PND. Denies any nausea or vomitting is awake and alert s/p hemodialysis yesterday Discussed with patient at bedside needs dialysis placement Objective - Vital Signs Vital signs: Vital Signs - 12hr 03/03/19 03/03/19 03/03/19 03:00 04:14 07:26 Temperature 98.0 F 97.6 F Pulse Rate 90 84 85 Respiratory 18 18 Rate Respiratory Rate [Right Lateral Chest] Blood Pressure 126/77 122/87 O2 Sat by Pulse 98 98 Oximetry 03/03/19 03/03/19 03/03/19 07:39 10:00 11:00 Temperature 98.0 F Pulse Rate 86 Respiratory 18 Rate Respiratory 18 Rate [Right Lateral Chest] Blood Pressure 132/81 O2 Sat by Pulse Oximetry 03/03/19 11:31 Temperature Pulse Rate 91 H Respiratory Rate Respiratory Rate [Right Lateral Chest] Blood Pressure O2 Sat by Pulse Oximetry - General Appearance General appearance: well-developed, well-nourished EENT: ATNC, PERRL, mucous membranes moist Neck: no JVD Respiratory: Present: Clear to Ascultation Cardiology: regular, S1S2 Gastrointestinal: normal, normoactive bowel sounds Integumentary: no rash Neurologic: alert and oriented x3, CN 3-12 intact Musculoskeletal: deferred, deformities Psychiatric: mood/affect appropriate - Lab 03/02/19 06:54 03/03/19 08:47 Most recent lab results Calcium 10.1 mg/dL (8.4-10.2) 03/03/19 08:47 Phosphorus 4.30 mg/dL (2.5-4.5) 02/25/19 14:50 48.8 mg/dL (0.1-20.0) H 02/27/19 19:00 Ur Total Protein 24 Hr 1875.00 mg/dL (2-200) H 02/27/19 19:00 112 mmol/L 02/25/19 18:35 75 mg/dL (5-11.8) H 02/27/19 19:00 - Imaging Chest x-ray: image reviewed (i reviewed CXR with patchy opacities. ) Medications & Allergies - Medications Allergies/Adverse Reactions: Allergies No Known Allergies Allergy (Verified 02/25/19 14:44) Home Medications: Home Medications Medication Instructions Recorded Confirmed Last Taken Type Amlodipine Besylate 10 mg PO DAILY 10/11/16 02/26/19 09/04/17 History Aspirin EC 81 mg PO DAILY 10/11/16 02/26/19 02/24/19 History Clopidogrel Bisulfate [Clopidogrel] 75 mg PO DAILY 10/11/16 02/26/19 02/24/19 History Famotidine 40 mg PO BID 10/11/16 02/26/19 02/24/19 History Lovastatin 40 mg PO HS 10/11/16 02/26/19 02/24/19 History Metoprolol Tartrate 50 mg PO BID 10/11/16 02/26/19 02/24/19 History Vit D3/Folic Acid/B2/B6/B12 1 each PO DAILY 10/11/16 02/26/19 09/04/17 History [Folgard Tablet] Sodium Bicarbonate 650 mg PO TID 11/11/17 02/26/19 02/24/19 History Ondansetron [Zofran Odt] 4 mg PO Q8HR PRN #14 tab.rapdis 06/09/18 02/26/19 Unknown Rx Furosemide 40 mg PO QDAC 02/25/19 02/26/19 02/24/19 History hydrALAZINE [Apresoline TAB] 100 mg PO BID 02/25/19 02/26/19 02/24/19 History levETIRAcetam [Keppra TAB] 750 mg PO BID 02/25/19 02/26/19 02/24/19 History Active Medications: Generic Name Dose Route Start Last Admin Trade Name Freq PRN Reason Stop Dose Admin Acetaminophen 650 mg 02/25/19 21:11 Tylenol PO Q4H PRN Pain MILD(1-3)/Fever >100.5/ZIMMERMAN Aspirin 81 mg 02/25/19 22:00 03/03/19 11:29 Halfprin Ec PO 81 mg DAILY [facility] Administration Clopidogrel Bisulfate 75 mg 02/25/19 22:00 03/03/19 11:28 Plavix PO 75 mg DAILY [facility] Administration Famotidine 10 mg 02/25/19 22:00 03/03/19 11:27 Pepcid PO 10 mg BID [facility] Administration Heparin Sodium (Porcine) 5,000 unit 02/25/19 22:00 03/03/19 11:38 Heparin SUB-Q 5,000 unit Q12HR [facility] Administration Hydromorphone HCl 0.5 mg 02/25/19 21:11 Dilaudid IV Q3H PRN Pain , Severe (7-10) Sodium Chloride 500 mls @ 50 mls/hr 03/02/19 15:00 Nacl 0.9% 500 Ml IV DIRECT [facility]ID Levetiracetam 750 mg 02/25/19 22:00 03/03/19 10:30 Keppra PO 750 mg BID [facility] Administration Loperamide HCl 2 mg 03/01/19 14:06 03/01/19 15:10 Imodium PO 2 mg Q2H PRN Administration Diarrhea Metoprolol Tartrate 12.5 mg 02/28/19 10:00 03/03/19 11:31 Lopressor PO 12.5 mg BID [facility] Administration Ondansetron HCl 4 mg 02/25/19 21:11 Zofran IV Q8H PRN Nausea And Vomiting Oxycodone/Acetaminophen 1 tab 02/25/19 21:11 Percocet 5/325 PO Q6H PRN Pain, Moderate (4-6) Pravastatin Sodium 40 mg 02/25/19 22:00 03/02/19 22:30 Pravachol PO 40 mg QHS DAVID Administration Sodium Chloride 10 ml 02/25/19 22:00 03/03/19 11:43 Sodium Chloride Flush Syringe 10 Ml IV 10 ml BID [facility]ID Administration Sodium Chloride 10 ml 02/25/19 21:11 Sodium Chloride Flush Syringe 10 Ml IV PRN PRN LINE FLUSH
--- NOTE | 2019-03-03 17:48 | Progress Note ---
Assessment and Plan Assessment and plan: Patient is a 83 yo man with a history of CAD s/p CABG, PPM, hypertension, dementia and childhood sz who presents with worsening renal function from Dr. De's [employer] office New ESRD: HD initiation per Nephrology, permacath placed by vascular Acute metabolic encephalopathy: treat the renal failure, resolved CAD: continue plavix GERD: continue pepcid Dyslipidemia: statin Seizure disorder: continue Keppra and monitor closely Relative hypotension: adjust bp medications Pancytopenia- Hematology following, " Either this could be deficiency or medication related or transient phenomena or this could be myelodysplastic syndrome" Patient will follow with hematology outpatient also. Family meeting done, hemodialysis started, case management arranging for dialysis center outpatient. History Interval history: Patient was seen and examined. Follow-up on current diagnosis. No overnight events reported to me. Patient denies any chest pain, shortness breath, nausea/v omiting or severe headaches. Imaging, nursing note, chart, labs and old chart reviewed. Hospitalist Physical - Physical exam Narrative exam: Gen: chronic disability, lethargic, noted improvement, sitting up, eating, spouse at bedside HEENT: NCAT, EOMI, PERRL, OP Clear Neck: supple, no adenopathy, no thyromegaly, no JVD CVS/Heart: RRR, normal S1S2, pulses present bilaterally Chest/Lungs: CTA B, Symmetrical chest expansion, good air entry bilaterally GI/Abdomen: soft, NTND, good bowel sounds, no guarding or rebound /Bladder: no suprapubic tenderness, no CVA or paraspinal tenderness Extermity/Skin: no c/c/e, no obvious rash MSK: FROM x 4 Neuro: CN 2-12 grossly intact, no new focal deficits Psych: calm - Constitutional Vitals: Temp Pulse Resp BP Pulse Ox 98.2 F 74 18 122/74 94 03/03/19 16:49 03/03/19 16:49 03/03/19 16:49 03/03/19 16:49 03/03/19 16:49 General appearance: Present: well-nourished Results - Labs CBC & Chem 7: 03/02/19 06:54 03/04/19 04:22 Labs: Laboratory Last Values WBC 3.8 K/mm3 (4.5-11.0) L 03/02/19 06:54 RBC 3.44 M/mm3 (3.65-5.03) L 03/02/19 06:54 Hgb 9.8 gm/dl (11.8-15.2) L 03/02/19 06:54 Hct 29.3 % (35.5-45.6) L 03/02/19 06:54 MCV 85 fl (84-94) 03/02/19 06:54 MCH 28 pg (28-32) 03/02/19 06:54 MCHC 33 % (32-34) 03/02/19 06:54 RDW 14.6 % (13.2-15.2) 03/02/19 06:54 Plt Count 125 K/mm3 (140-440) L 03/02/19 06:54 Lymph % (Auto) 23.7 % (13.4-35.0) 02/27/19 10:15 [place] % (Auto) 11.5 % (0.0-7.3) H 02/27/19 10:15 Eos % (Auto) 3.0 % (0.0-4.3) 02/27/19 10:15 Baso % (Auto) 0.4 % (0.0-1.8) 02/27/19 10:15 Lymph # 1.0 K/mm3 (1.2-5.4) L 02/27/19 10:15 [place] # 0.5 K/mm3 (0.0-0.8) 02/27/19 10:15 Eos # 0.1 K/mm3 (0.0-0.4) 02/27/19 10:15 Baso # 0.0 K/mm3 (0.0-0.1) 02/27/19 10:15 Seg Neutrophils % 61.4 % (40.0-70.0) 02/27/19 10:15 Seg Neutrophils # 2.5 K/mm3 (1.8-7.7) 02/27/19 10:15 PT 13.3 Sec. (12.2-14.9) 02/27/19 10:15 INR 1.04 (0.87-1.13) 02/27/19 10:15 Sodium 139 mmol/L (137-145) 03/03/19 08:47 Potassium 4.6 mmol/L (3.6-5.0) 03/03/19 08:47 Chloride 102.3 mmol/L (98-107) 03/03/19 08:47 Carbon Dioxide 20 mmol/L (22-30) L 03/03/19 08:47 21 mmol/L 03/03/19 08:47 BUN 38 mg/dL (9-20) H 03/03/19 08:47 3.2 mg/dL (0.8-1.5) H 03/03/19 08:47 Estimated GFR 23 ml/min 03/03/19 08:47 12 % 03/03/19 08:47 Glucose 108 mg/dL (75-100) H 03/03/19 08:47 POC Glucose 182 (70-105) H 02/27/19 10:08 5.4 % (4-6) 02/25/19 21:47 313 Mosm/kg 03/01/19 10:32 7.5 mg/dL (3.5-7.6) 03/01/19 10:32 Calcium 10.1 mg/dL (8.4-10.2) 03/03/19 08:47 Phosphorus 4.30 mg/dL (2.5-4.5) 02/25/19 14:50 Iron 42 ug/dL (49-181) L 02/28/19 12:32 TIBC 192 mcg/dL (250-450) L 02/28/19 12:32 337.9 ng/mL (13.0-400.0) 02/28/19 12:32 0.40 mg/dL (0.1-1.2) 02/26/19 05:55 AST 17 units/L (5-40) 02/26/19 05:55 ALT 7 units/L (7-56) 02/26/19 05:55 49 units/L (35-129) 02/26/19 05:55 0.079 ng/mL (0.00-0.029) H 02/28/19 00:09 NT-Pro-B Natriuret Pep 6375 pg/mL (0-900) H 02/27/19 10:15 7.2 g/dL (6.3-8.2) 02/26/19 05:55 3.7 g/dL (3.9-5) L 02/26/19 05:55 1.1 % 02/26/19 05:55 Triglycerides 39 mg/dL (2-149) 02/27/19 17:00 Cholesterol 121 mg/dL (50-199) 02/27/19 17:00 68 mg/dL (50-130) 02/27/19 17:00 52 mg/dL (40-59) 02/27/19 17:00 2.32 % 02/27/19 17:00 Vitamin B12 316.3 pg/mL (211-911) 02/28/19 12:32 16.17 ng/mL (7.3-26.0) 02/28/19 12:32 Straw (Yellow) 02/25/19 18:35 Clear (Clear) 02/25/19 18:35 7.0 (5.0-7.0) 02/25/19 18:35 Ur Specific [place] 1.008 (1.003-1.030) 02/25/19 18:35 30 mg/dl mg/dL (Negative) 02/25/19 18:35 Neg mg/dL (Negative) 02/25/19 18:35 Neg mg/dL (Negative) 02/25/19 18:35 Neg (Negative) 02/25/19 18:35 Neg (Negative) 02/25/19 18:35 Neg (Negative) 02/25/19 18:35 < 2.0 mg/dL (<2.0) 02/25/19 18:35 Ur Leukocyte Esterase Neg (Negative) 02/25/19 18:35 1.0 /HPF (0.0-6.0) 02/25/19 18:35 1.0 /HPF (0.0-6.0) 02/25/19 18:35 1+ /HPF (Negative) 02/25/19 18:35 2500 ml 02/27/19 19:00 48.8 mg/dL (0.1-20.0) H 02/27/19 19:00 Ur Creatinine 24 Hour 1.2 (0.8-2.8) 02/27/19 19:00 Ur Total Protein 24 Hr 1875.00 mg/dL (2-200) H 02/27/19 19:00 112 mmol/L 02/25/19 18:35 75 mg/dL (5-11.8) H 02/27/19 19:00 Hepatitis A IgM Ab Non-reactive (NonReactive) 03/02/19 11:49 Hep Bs Antigen Non-reactive (Negative) 03/02/19 11:49 Hep B Core IgM Ab Non-reactive (NonReactive) 03/02/19 11:49 Non-reactive (NonReactive) 03/02/19 11:49 Active Medications - Current Medications Current Medications: Generic Name Dose Route Start Last Admin Trade Name Freq PRN Reason Stop Dose Admin Acetaminophen 650 mg 02/25/19 21:11 Tylenol PO Q4H PRN Pain MILD(1-3)/Fever >100.5/ZIMMERMAN Aspirin 81 mg 02/25/19 22:00 03/03/19 11:29 Halfprin Ec PO 81 mg DAILY [facility] Administration Clopidogrel Bisulfate 75 mg 02/25/19 22:00 03/03/19 11:28 Plavix PO 75 mg DAILY [facility] Administration Famotidine 10 mg 02/25/19 22:00 03/03/19 11:27 Pepcid PO 10 mg BID [facility] Administration Furosemide 60 mg 03/03/19 15:00 Lasix PO DAILY@0600 [facility] Heparin Sodium (Porcine) 5,000 unit 02/25/19 22:00 03/03/19 11:38 Heparin SUB-Q 5,000 unit Q12HR [facility] Administration Hydromorphone HCl 0.5 mg 02/25/19 21:11 Dilaudid IV Q3H PRN Pain , Severe (7-10) Sodium Chloride 500 mls @ 50 mls/hr 03/02/19 15:00 Nacl 0.9% 500 Ml IV DIRECT [facility]ID Levetiracetam 750 mg 02/25/19 22:00 03/03/19 10:30 Keppra PO 750 mg BID [facility] Administration Loperamide HCl 2 mg 03/01/19 14:06 03/01/19 15:10 Imodium PO 2 mg Q2H PRN Administration Diarrhea Metoprolol Tartrate 12.5 mg 02/28/19 10:00 03/03/19 11:31 Lopressor PO 12.5 mg BID [facility] Administration Ondansetron HCl 4 mg 02/25/19 21:11 Zofran IV Q8H PRN Nausea And Vomiting Oxycodone/Acetaminophen 1 tab 02/25/19 21:11 Percocet 5/325 PO Q6H PRN Pain, Moderate (4-6) Pravastatin Sodium 40 mg 02/25/19 22:00 03/02/19 22:30 Pravachol PO 40 mg QHS [facility]ID Administration Sodium Chloride 10 ml 02/25/19 22:00 03/03/19 11:43 Sodium Chloride Flush Syringe 10 Ml IV 10 ml BID [facility] Administration Sodium Chloride 10 ml 02/25/19 21:11 Sodium Chloride Flush Syringe 10 Ml IV PRN PRN LINE FLUSH Nutrition/Malnutrition Assess - Dietary Evaluation Nutrition/Malnutrition Findings: Nutrition Notes Start: 02/26/19 09:35 Freq: Status: Active Protocol: Document 03/03/19 10:51 JOCELINE (Rec: 03/03/19 10:52 PRTAPAN [email or web address]) Nutrition Notes Initial or Follow up Brief Note Current Diet NPO Subjective/Other Information Pt remains NPO. Nutrition Intervention Follow-Up By: 03/04/19 Additional Comments F/U: diet advancement, ONS order - Attestation Statement I have reviewed and agreed w/ Malnutrition eval & tx plan: Yes
[2019-03-03] MEDS: LASIX PO SCH (19:45)
[2019-03-03] MEDS: PRAVACHOL PO SCH (21:43)
[2019-03-04 05:16] LABS: Calcium 9.8 mg/dL (8.4-10.2)
[2019-03-04] MEDS: LASIX PO SCH (05:17)
--- NOTE | 2019-03-04 07:54 | Hem/Onc Progress Note ---
Assessment and Plan 1. Anemia, leukopenia and thrombocytopenia. deficiency investigations. MCV is not elevated. Either this could be deficiency or medication related or transient phenomena or this could be myelodysplastic syndrome. We will need to follow the blood count to see the trend. 2. New end-stage renal disease. The patient may need dialysis. Nephrology is following. 3. Coronary artery disease. 4. History of gastroesophageal reflux disease. 5. History of hyperlipidemia. 6. History of seizure disorder. There is mention of dementia and hypotension in the notes, he has a pacemaker. 03/04 -CKD may have a role in the cytopenia - OP follow up - Patient Problems (1) Anemia Current Visit: Yes Status: Acute Qualifiers: Anemia type: due to chronic kidney disease Subjective Date of service: 03/04/19 Principal diagnosis: anemia Interval history: more awake Objective - Exam Narrative Exam: Pain none General appearance no acute distress Performance status limited self care Eyes EOM intact ENT hearing intact LNs - cervical not palpable Neck normal ROM Respiratory on BIPAP breath sounds CTA CVS S1 S2 + Extremities normal temperature General GI Soft non tender Rectal deferred Male - deferred Skin warm Musculoskeletal generalized weakness Neurologically moves all extremities - Constitutional Vitals: Last Vital Signs Temp 97.8 F 03/04/19 03:52 Pulse 61 03/04/19 03:52 Resp 18 03/04/19 03:52 BP 142/72 03/04/19 03:52 Pulse Ox 100 03/04/19 03:52 - Labs Lab Results: Laboratory Results - last 24 hr 03/03/19 03/04/19 08:47 04:22 Sodium 139 139 Potassium 4.6 4.1 Chloride 102.3 101.5 Carbon Dioxide 20 L 22 Anion Gap 21 20 BUN 38 H 49 H Creatinine 3.2 H 3.8 H Estimated GFR 23 18 BUN/Creatinine Ratio 12 13 Glucose 108 H 112 H Calcium 10.1 9.8 Medications & Allergies - Medications Allergies/Adverse Reactions: Allergies No Known Allergies Allergy (Verified 02/25/19 14:44) Home Medications: Home Medications Medication Instructions Recorded Confirmed Last Taken Type Amlodipine Besylate 10 mg PO DAILY 10/11/16 02/26/19 09/04/17 History Aspirin EC 81 mg PO DAILY 10/11/16 02/26/19 02/24/19 History Clopidogrel Bisulfate [Clopidogrel] 75 mg PO DAILY 10/11/16 02/26/1902/24/19 History Famotidine 40 mg PO BID 10/11/16 02/26/19 02/24/19 History Lovastatin 40 mg PO HS 10/11/16 02/26/19 02/24/19 History Metoprolol Tartrate 50 mg PO BID 10/11/16 02/26/19 02/24/19 History Vit D3/Folic Acid/B2/B6/B12 1 each PO DAILY 10/11/16 02/26/19 09/04/17 History [Folgard Tablet] Sodium Bicarbonate 650 mg PO TID 11/11/17 02/26/19 02/24/19 History Ondansetron [Zofran Odt] 4 mg PO Q8HR PRN #14 tab.rapdis 06/09/18 02/26/19 Unknown Rx Furosemide 40 mg PO QDAC 02/25/19 02/26/19 02/24/19 History hydrALAZINE [Apresoline TAB] 100 mg PO BID 02/25/19 02/26/19 02/24/19 History levETIRAcetam [Keppra TAB] 750 mg PO BID 02/25/19 02/26/19 02/24/19 History Active Medications: Generic Name Dose Route Start Last Admin Trade Name Freq PRN Reason Stop Dose Admin Acetaminophen 650 mg 02/25/19 21:11 Tylenol PO Q4H PRN Pain MILD(1-3)/Fever >100.5/ZIMMERMAN Aspirin 81 mg 02/25/19 22:00 03/03/19 11:29 Halfprin Ec PO 81 mg DAILY [facility] Administration Clopidogrel Bisulfate 75 mg 02/25/19 22:00 03/03/19 11:28 Plavix PO 75 mg DAILY [facility] Administration Famotidine 10 mg 02/25/19 22:00 03/03/19 21:41 Pepcid PO 10 mg BID [facility] Administration Furosemide 60 mg 03/03/19 15:00 03/04/19 05:17 Lasix PO 60 mg DAILY@0600 [facility] Administration Heparin Sodium (Porcine) 5,000 unit 02/25/19 22:00 03/03/19 21:43 Heparin SUB-Q 5,000 unit Q12HR [facility] Administration Hydromorphone HCl 0.5 mg 02/25/19 21:11 Dilaudid IV Q3H PRN Pain , Severe (7-10) Sodium Chloride 500 mls @ 50 mls/hr 03/02/19 15:00 Nacl 0.9% 500 Ml IV DIRECT [facility] Levetiracetam 750 mg 02/25/19 22:00 03/03/19 21:42 Keppra PO 750 mg BID [facility] Administration Loperamide HCl 2 mg 03/01/19 14:06 03/01/19 15:10 Imodium PO 2 mg Q2H PRN Administration Diarrhea Metoprolol Tartrate 12.5 mg 02/28/19 10:00 03/03/19 21:41 Lopressor PO 12.5 mg BID [facility] Administration Ondansetron HCl 4 mg 02/25/19 21:11 Zofran IV Q8H PRN Nausea And Vomiting Oxycodone/Acetaminophen 1 tab 02/25/19 21:11 Percocet 5/325 PO Q6H PRN Pain, Moderate (4-6) Pravastatin Sodium 40 mg 02/25/19 22:00 03/03/19 21:43 Pravachol PO 40 mg QHS [facility] Administration Sodium Chloride 10 ml 02/25/19 22:00 03/03/19 21:43 Sodium Chloride Flush Syringe 10 Ml IV 10 ml BID [facility] Administration Sodium Chloride 10 ml 02/25/19 21:11 Sodium Chloride Flush Syringe 10 Ml IV PRN PRN LINE FLUSH
[2019-03-04] MEDS: PLAVIX PO SCH (10:31)
[2019-03-04] MEDS: KEPPRA PO SCH ×2 (10:31→21:56)
[2019-03-04] MEDS: HALFPRIN EC PO SCH (10:31)
[2019-03-04] MEDS: LOPRESSOR PO SCH ×2 (10:32→21:57)
[2019-03-04] MEDS: HEPARIN SUB-Q SCH ×2 (10:33→21:58)
--- NOTE | 2019-03-04 10:33 | Progress Note ---
Assessment and Plan - Patient Problems (1) Acute renal failure superimposed on stage 4 chronic kidney disease Current Visit: Yes Status: Acute Qualifiers: Acute renal failure type: unspecified Qualified Code(s): N17.9 - Acute kidney failure, unspecified; N18.4 - Chronic kidney disease, stage 4 (severe) Plan to address problem: Acute renal failure on CKD stage 4 now appears dialysis dependent with Possible ESRD. baseline creatinine flunctutes between 3-3.5mg/dl creatinine on admission 4.4mg/dl current creatinine worsening from : 4.2-5.2 mg/dl Significant rising creatinine in between dialysis non oliguric reviewed renal US Discussed in detail with has some dementia at baseline and mental status waxes and wanes No acute electrolyte abnormalities and creatinine is not worsening today. 24hr urine collection for creatinine to assess renal function GFR : 17ml/min though this may be an overstimation Renal function worsening since then Ps/p perm cath placement. CXR reviewed with cardiomegaly and some pulmonary congestion continue Lasix 60mg PO daily for now. Dr. Arcos had offered short trial of HD to patient and his Needs outpatient dialysis placement Discussed with patients continue HD MWF Social work to assist with dialysis placement. (2) Dementia Current Visit: No Status: Chronic Plan to address problem: Dementia waxing and waning mental status at risk for delireum Will monitor closely Mental status improved today. (3) HTN (hypertension) Current Visit: No Status: Chronic Plan to address problem: HTN: uncontrolled. Ensure medications. (4) Metabolic acidosis Current Visit: Yes Status: Acute Plan to address problem: Mild Metabolic acidosis : 2/2 CKD discontinue sodium bicarb 650mg bid. currently on hemodialysis. (5) Anemia Current Visit: Yes Status: Acute Qualifiers: Anemia type: due to chronic kidney disease Plan to address problem: Moderate anemia hemoglobin 9.8g/dl Etiology secondary to Chronic Kidney Disease Monitor CBC Subjective Principal diagnosis: anemia Interval history: 83-year-old with medical history significant for hypertension, chronic kidney disease stage IV admitted due to concern for worsening renal function according to the patient has baseline dementia also has history of seizures Patient seen today, Denies any orthopnea or PND. Denies any nausea or vomitting Will plan for dialysis today seen having breakfast Objective - Vital Signs Vital signs: Vital Signs - 12hr 03/03/19 03/04/19 03/04/19 23:16 03:52 09:28 Temperature 98.4 F 97.8 F 97.5 F L Pulse Rate 67 61 Respiratory 17 18 20 Rate Blood Pressure 140/79 142/72 99/62 O2 Sat by Pulse 100 100 Oximetry - General Appearance General appearance: well-developed, well-nourished EENT: ATNC, PERRL, mucous membranes moist Neck: no JVD Respiratory: Present: Clear to Ascultation Cardiology: regular, S1S2 Gastrointestinal: normal, normoactive bowel sounds Integumentary: no rash Neurologic: alert and oriented x3, CN 3-12 intact Musculoskeletal: deferred Psychiatric: mood/affect appropriate - Lab 03/02/19 06:54 03/04/19 04:22 Most recent lab results Calcium 9.8 mg/dL (8.4-10.2) 03/04/19 04:22 Phosphorus 4.30 mg/dL (2.5-4.5) 02/25/19 14:50 48.8 mg/dL (0.1-20.0) H 02/27/19 19:00 Ur Total Protein 24 Hr 1875.00 mg/dL (2-200) H 02/27/19 19:00 112 mmol/L 02/25/19 18:35 75 mg/dL (5-11.8) H 02/27/19 19:00 - Imaging Chest x-ray: image reviewed (I reviewed chest x-ray with patchy interstitial markings) Medications & Allergies - Medications Allergies/Adverse Reactions: Allergies No Known Allergies Allergy (Verified 02/25/19 14:44) Home Medications: Home Medications Medication Instructions Recorded Confirmed Last Taken Type Amlodipine Besylate 10 mg PO DAILY 10/11/16 02/26/19 09/04/17 History Aspirin EC 81 mg PO DAILY 10/11/16 02/26/19 02/24/19 History Clopidogrel Bisulfate [Clopidogrel] 75 mg PO DAILY 10/11/16 02/26/19 02/24/19 Hi story Famotidine 40 mg PO BID 10/11/16 02/26/19 02/24/19 History Lovastatin 40 mg PO HS 10/11/16 02/26/19 02/24/19 History Metoprolol Tartrate 50 mg PO BID 10/11/16 02/26/19 02/24/19 History Vit D3/Folic Acid/B2/B6/B12 1 each PO DAILY 10/11/16 02/26/19 09/04/17 History [Folgard Tablet] Sodium Bicarbonate 650 mg PO TID 11/11/17 02/26/19 02/24/19 History Ondansetron [Zofran Odt] 4 mg PO Q8HR PRN #14 tab.rapdis 06/09/18 02/26/19 Unknown Rx Furosemide 40 mg PO QDAC 02/25/19 02/26/19 02/24/19 History hydrALAZINE [Apresoline TAB] 100 mg PO BID 02/25/19 02/26/19 02/24/19 History levETIRAcetam [Keppra TAB] 750 mg PO BID 02/25/19 02/26/19 02/24/19 History Active Medications: Generic Name Dose Route Start Last Admin Trade Name Freq PRN Reason Stop Dose Admin Acetaminophen 650 mg 02/25/19 21:11 Tylenol PO Q4H PRN Pain MILD(1-3)/Fever >100.5/ZIMMERMAN Aspirin 81 mg 02/25/19 22:00 03/03/19 11:29 Halfprin Ec PO 81 mg DAILY DAVID Administration Clopidogrel Bisulfate 75 mg 02/25/19 22:00 03/03/19 11:28 Plavix PO 75 mg DAILY DAVID Administration Famotidine 10 mg 02/25/19 22:00 03/03/19 21:41 Pepcid PO 10 mg BID DAVID Administration Furosemide 60 mg 03/03/19 15:00 03/04/19 05:17 Lasix PO 60 mg DAILY@0600 DAVID Administration Heparin Sodium (Porcine) 5,000 unit 02/25/19 22:00 03/03/19 21:43 Heparin SUB-Q 5,000 unit Q12HR DAVID Administration Hydromorphone HCl 0.5 mg 02/25/19 21:11 Dilaudid IV Q3H PRN Pain , Severe (7-10) Sodium Chloride 500 mls @ 50 mls/hr 03/02/19 15:00 Nacl 0.9% 500 Ml IV DIRECT DAVID Levetiracetam 750 mg 02/25/19 22:00 03/03/19 21:42 Keppra PO 750 mg BID DAVID Administration Loperamide HCl 2 mg 03/01/19 14:06 03/01/19 15:10 Imodium PO 2 mg Q2H PRN Administration Diarrhea Metoprolol Tartrate 12.5 mg 02/28/19 10:00 03/03/19 21:41 Lopressor PO 12.5 mg BID DAVID Administration Ondansetron HCl 4 mg 02/25/19 21:11 Zofran IV Q8H PRN Nausea And Vomiting Oxycodone/Acetaminophen 1 tab 02/25/19 21:11 Percocet 5/325 PO Q6H PRN Pain, Moderate (4-6) Pravastatin Sodium 40 mg 02/25/19 22:00 03/03/19 21:43 Pravachol PO 40 mg QHS DAVID Administration Sodium Chloride 10 ml 02/25/19 22:00 03/03/19 21:43 Sodium Chloride Flush Syringe 10 Ml IV 10 ml BID DAVID Administration Sodium Chloride 10 ml 02/25/19 21:11 Sodium Chloride Flush Syringe 10 Ml IV PRN PRN LINE FLUSH
[2019-03-04] MEDS: SODIUM CHLORIDE FLUSH SYRINGE 10 ML IV SCH ×2 (10:34→21:58)
[2019-03-04] MEDS: PEPCID PO SCH ×2 (10:42→22:30)
[2019-03-04] MEDS ORDERED: NACL 0.9 (PRIMING MACHINE ONLY DIALYSIS) MC ONE (12:17)
--- NOTE | 2019-03-04 15:08 | Progress Note ---
Assessment and Plan Assessment and plan: Patient is a 83 yo man with a history of CAD s/p CABG, PPM, hypertension, dementia and childhood sz who presents with worsening renal function from Dr. De's Rn Clinical Review office New ESRD: HD initiation per Nephrology, permacath placed by vascular Acute metabolic encephalopathy: treat the renal failure, resolved CAD: continue plavix GERD: continue pepcid Dyslipidemia: statin Seizure disorder: continue Keppra and monitor closely Relative hypotension: adjust bp medications Pancytopenia- Hematology following, " Either this could be deficiency or medication related or transient phenomena or this could be myelodysplastic syndrome" Patient will follow with hematology outpatient also. Family meeting done, hemodialysis started, case management arranging for dialysis center outpatient. Discontinue zimmerman catheter. PT consulted for deconditioning, History Interval history: Patient was seen and examined. Follow-up on current diagnosis. No overnight events reported to me. Patient denies any chest pain, shortness breath, nausea/vomiting or severe headaches. Imaging, nursing note, chart, labs and old chart reviewed. Still with generalized weakness Hospitalist Physical - Physical exam Narrative exam: Gen: chronic disability, lethargic, noted improvement, sitting up, eating, spouse at bedside HEENT: NCAT, EOMI, PERRL, OP Clear Neck: supple, no adenopathy, no thyromegaly, no JVD CVS/Heart: RRR, normal S1S2, pulses present bilaterally Chest/Lungs: CTA B, Symmetrical chest expansion, good air entry bilaterally GI/Abdomen: soft, NTND, good bowel sounds, no guarding or rebound /Bladder: no suprapubic tenderness, no CVA or paraspinal tenderness Extermity/Skin: no c/c/e, no obvious rash MSK: FROM x 4 Neuro: CN 2-12 grossly intact, no new focal deficits Psych: calm - Constitutional Vitals: Temp Pulse Resp BP Pulse Ox 97.9 F 75 16 117/58 100 03/04/19 12:00 03/04/19 14:45 03/04/19 12:00 03/04/19 14:45 03/04/19 03:52 General appearance: Present: well-nourished Results - Labs CBC & Chem 7: 03/02/19 06:54 03/05/19 05:35 Labs: Laboratory Last Values WBC 3.8 K/mm3 (4.5-11.0) L 03/02/19 06:54 RBC 3.44 M/mm3 (3.65-5.03) L 03/02/19 06:54 Hgb 9.8 gm/dl (11.8-15.2) L 03/02/19 06:54 Hct 29.3 % (35.5-45.6) L 03/02/19 06:54 MCV 85 fl (84-94) 03/02/19 06:54 MCH 28 pg (28-32) 03/02/19 06:54 MCHC 33 % (32-34) 03/02/19 06:54 RDW 14.6 % (13.2-15.2) 03/02/19 06:54 Plt Count 125 K/mm3 (140-440) L 03/02/19 06:54 Lymph % (Auto) 23.7 % (13.4-35.0) 02/27/19 10:15 [place] % (Auto) 11.5 % (0.0-7.3) H 02/27/19 10:15 Eos % (Auto) 3.0 % (0.0-4.3) 02/27/19 10:15 Baso % (Auto) 0.4 % (0.0-1.8) 02/27/19 10:15 Lymph # 1.0 K/mm3 (1.2-5.4) L 02/27/19 10:15 [place] # 0.5 K/mm3 (0.0-0.8) 02/27/19 10:15 Eos # 0.1 K/mm3 (0.0-0.4) 02/27/19 10:15 Baso # 0.0 K/mm3 (0.0-0.1) 02/27/19 10:15 Seg Neutrophils % 61.4 % (40.0-70.0) 02/27/19 10:15 Seg Neutrophils # 2.5 K/mm3 (1.8-7.7) 02/27/19 10:15 PT 13.3 Sec. (12.2-14.9) 02/27/19 10:15 INR 1.04 (0.87-1.13) 02/27/19 10:15 Sodium 139 mmol/L (137-145) 03/04/19 04:22 Potassium 4.1 mmol/L (3.6-5.0) 03/04/19 04:22 Chloride 101.5 mmol/L (98-107) 03/04/19 04:22 Carbon Dioxide 22 mmol/L (22-30) 03/04/19 04:22 20 mmol/L 03/04/19 04:22 BUN 49 mg/dL (9-20) H 03/04/19 04:22 3.8 mg/dL (0.8-1.5) H 03/04/19 04:22 Estimated GFR 18 ml/min 03/04/19 04:22 13 % 03/04/19 04:22 Glucose 112 mg/dL (75-100) H 03/04/19 04:22 POC Glucose 182 (70-105) H 02/27/19 10:08 5.4 % (4-6) 02/25/19 21:47 313 Mosm/kg 03/01/19 10:32 7.5 mg/dL (3.5-7.6) 03/01/19 10:32 Calcium 9.8 mg/dL (8.4-10.2) 03/04/19 04:22 Phosphorus 4.30 mg/dL (2.5-4.5) 02/25/19 14:50 Iron 42 ug/dL (49-181) L 02/28/19 12:32 TIBC 192 mcg/dL (250-450) L 02/28/19 12:32 337.9 ng/mL (13.0-400.0) 02/28/19 12:32 0.40 mg/dL (0.1-1.2) 02/26/19 05:55 AST 17 units/L (5-40) 02/26/19 05:55 ALT 7 units/L (7-56) 02/26/19 05:55 49 units/L (35-129) 02/26/19 05:55 0.079 ng/mL (0.00-0.029) H 02/28/19 00:09 NT-Pro-B Natriuret Pep 6375 pg/mL (0-900) H 02/27/19 10:15 7.2 g/dL (6.3-8.2) 02/26/19 05:55 3.7 g/dL (3.9-5) L 02/26/19 05:55 1.1 % 02/26/19 05:55 Triglycerides 39 mg/dL (2-149) 02/27/19 17:00 Cholesterol 121 mg/dL (50-199) 02/27/19 17:00 68 mg/dL (50-130) 02/27/19 17:00 52 mg/dL (40-59) 02/27/19 17:00 2.32 % 02/27/19 17:00 Vitamin B12 316.3 pg/mL (211-911) 02/28/19 12:32 16.17 ng/mL (7.3-26.0) 02/28/19 12:32 Straw (Yellow) 02/25/19 18:35 Clear (Clear) 02/25/19 18:35 7.0 (5.0-7.0) 02/25/19 18:35 Ur Specific Randall 1.008 (1.003-1.030) 02/25/19 18:35 30 mg/dl mg/dL (Negative) 02/25/19 18:35 Neg mg/dL (Negative) 02/25/19 18:35 Neg mg/dL (Negative) 02/25/19 18:35 Neg (Negative) 02/25/19 18:35 Neg (Negative) 02/25/19 18:35 Neg (Negative) 02/25/19 18:35 < 2.0 mg/dL (<2.0) 02/25/19 18:35 Ur Leukocyte Esterase Neg (Negative) 02/25/19 18:35 1.0 /HPF (0.0-6.0) 02/25/19 18:35 1.0 /HPF (0.0-6.0) 02/25/19 18:35 1+ /HPF (Negative) 02/25/19 18:35 2500 ml 02/27/19 19:00 48.8 mg/dL (0.1-20.0) H 02/27/19 19:00 Ur Creatinine 24 Hour 1.2 (0.8-2.8) 02/27/19 19:00 Ur Total Protein 24 Hr 1875.00 mg/dL (2-200) H 02/27/19 19:00 112 mmol/L 02/25/19 18:35 75 mg/dL (5-11.8) H 02/27/19 19:00 Hepatitis A IgM Ab Non-reactive (NonReactive) 03/02/19 11:49 Hep Bs Antigen Non-reactive (Negative) 03/02/19 11:49 Hep B Core IgM Ab Non-reactive (NonReactive) 03/02/19 11:49 Non-reactive (NonReactive) 03/02/19 11:49 Active Medications - Current Medications Current Medications: Generic Name Dose Route Start Last Admin Trade Name Freq PRN Reason Stop Dose Admin Acetaminophen 650 mg 02/25/19 21:11 Tylenol PO Q4H PRN Pain MILD(1-3)/Fever >100.5/ZIMMERMAN Aspirin 81 mg 02/25/19 22:00 03/04/19 10:31 Halfprin Ec PO 81 mg DAILY DAVID Administration Clopidogrel Bisulfate 75 mg 02/25/19 22:00 03/04/19 10:31 Plavix PO 75 mg DAILY DAVID Administration Famotidine 10 mg 02/25/19 22:00 03/04/19 10:42 Pepcid PO 10 mg BID DAVID Administration Furosemide 60 mg 03/03/19 15:00 03/04/19 05:17 Lasix PO 60 mg DAILY@0600 DAVID Administration Heparin Sodium (Porcine) 5,000 unit 02/25/19 22:00 03/04/19 10:33 Heparin SUB-Q 5,000 unit Q12HR DAVID Administration Hydromorphone HCl 0.5 mg 02/25/19 21:11 Dilaudid IV Q3H PRN Pain , Severe (7-10) Sodium Chloride 500 mls @ 50 mls/hr 03/02/19 15:00 Nacl 0.9% 500 Ml IV DIRECT DAVID Levetiracetam 750 mg 02/25/19 22:00 03/04/19 10:31 Keppra PO 750 mg BID DAVID Administration Loperamide HCl 2 mg 03/01/19 14:06 03/01/19 15:10 Imodium PO 2 mg Q2H PRN Administration Diarrhea Metoprolol Tartrate 12.5 mg 02/28/19 10:00 03/04/19 10:32 Lopressor PO 12.5 mg BID DAVID Administration Ondansetron HCl 4 mg 02/25/19 21:11 Zofran IV Q8H PRN Nausea And Vomiting Oxycodone/Acetaminophen 1 tab 02/25/19 21:11 Percocet 5/325 PO Q6H PRN Pain, Moderate (4-6) Pravastatin Sodium 40 mg 02/25/19 22:00 03/03/19 21:43 Pravachol PO 40 mg QHS DAVID Administration Sodium Chloride 10 ml 02/25/19 22:00 03/04/19 10:34 Sodium Chloride Flush Syringe 10 Ml IV 10 ml BID DAVID Administration Sodium Chloride 10 ml 02/25/19 21:11 Sodium Chloride Flush Syringe 10 Ml IV PRN PRN LINE FLUSH Nutrition/Malnutrition Assess - Dietary Evaluation Nutrition/Malnutrition Findings: Nutrition Notes Start: 02/26/19 09:35 Freq: Status: Active Protocol: Document 03/04/19 13:23 RM (Rec: 03/04/19 13:24 RM [email or web address]) Nutrition Notes Initial or Follow up Brief Note Subjective/Other Information Diet advanced to Renal today. Nepro Vanilla BID added to diet. Nutrition Intervention Add Supplement/Snack (indicate name/kcal Nepro Vanilla BID /protein ) Provides kCal: 850 Provides Protein (gm) 38 Follow-Up By: 03/06/19 Additional Comments Follow for PO and ONS intakes
[2019-03-04] MEDS: PRAVACHOL PO SCH (21:56)
[2019-03-05] MEDS: LASIX PO SCH (06:18)
[2019-03-05 06:19] LABS: Calcium 9.4 mg/dL (8.4-10.2)
--- NOTE | 2019-03-05 07:51 | Hem/Onc Progress Note ---
Assessment and Plan 1. Anemia, leukopenia and thrombocytopenia. deficiency investigations. MCV is not elevated. Either this could be deficiency or medication related or transient phenomena or this could be myelodysplastic syndrome. We will need to follow the blood count to see the trend. 2. New end-stage renal disease. The patient may need dialysis. Nephrology is following. 3. Coronary artery disease. 4. History of gastroesophageal reflux disease. 5. History of hyperlipidemia. 6. History of seizure disorder. There is mention of dementia and hypotension in the notes, he has a pacemaker. 03/05 -CKD may have a role in the cytopenia - OP follow up an option will follow cbc b12 - folare normal - low iron - will follow labs - Patient Problems (1) Anemia Current Visit: Yes Status: Acute Qualifiers: Anemia type: due to chronic kidney disease Subjective Date of service: 03/05/19 Principal diagnosis: anemia Interval history: no bleeding d/w RN Objective - Exam Narrative Exam: Pain none General appearance no acute distress Performance status limited self care Eyes EOM intact ENT hearing intact LNs - cervical not palpable Neck normal ROM Respiratory on BIPAP breath sounds CTA CVS S1 S2 + Extremities normal temperature General GI Soft non tender Rectal deferred Male - deferred Skin warm Musculoskeletal generalized weakness Neurologically moves all extremities - Constitutional Vitals: Last Vital Signs Temp 98.4 F 03/05/19 04:00 Pulse 87 03/05/19 04:00 Resp 20 03/05/19 04:00 BP 95/61 03/05/19 04:00 Pulse Ox 100 03/05/19 04:00 - Labs Lab Results: Laboratory Results - last 24 hr 03/05/19 05:35 Sodium 138 Potassium 3.7 Chloride 99.9 Carbon Dioxide 24 Anion Gap 18 BUN 37 H Creatinine 3.8 H Estimated GFR 18 BUN/Creatinine Ratio 10 Glucose 117 H Calcium 9.4 Medications & Allergies - Medications Allergies/Adverse Reactions: Allergies No Known Allergies Allergy (Verified 02/25/19 14:44) Home Medications: Home Medications Medication Instructions Recorded Confirmed Last Taken Type Amlodipine Besylate 10 mg PO DAILY 10/11/16 02/26/19 09/04/17 History Aspirin EC 81 mg PO DAILY 10/11/16 02/26/19 02/24/19 History Clopidogrel Bisulfate [Clopidogrel] 75 mg PO DAILY 10/11/16 02/26/19 02/24/19 History Famotidine 40 mg PO BID 10/11/16 02/26/19 02/24/19 History Lovastatin 40 mg PO HS 10/11/16 02/26/19 02/24/19 History Metoprolol Tartrate 50 mg PO BID 10/11/16 02/26/19 02/24/19 History Vit D3/Folic Acid/B2/B6/B12 1 each PO DAILY 10/11/16 02/26/19 09/04/17 History [Folgard Tablet] Sodium Bicarbonate 650 mg PO TID 11/11/17 02/26/19 02/24/19 History Ondansetron [Zofran Odt] 4 mg PO Q8HR PRN #14 tab.rapdis 06/09/18 02/26/19 Unknown Rx Furosemide 40 mg PO QDAC 02/25/19 02/26/19 02/24/19 History hydrALAZINE [Apresoline TAB] 100 mg PO BID 02/25/19 02/26/19 02/24/19 History levETIRAcetam [Keppra TAB] 750 mg PO BID 02/25/19 02/26/19 02/24/19 History Active Medications: Generic Name Dose Route Start Last Admin Trade Name Freq PRN Reason Stop Dose Admin Acetaminophen 650 mg 02/25/19 21:11 Tylenol PO Q4H PRN Pain MILD(1-3)/Fever >100.5/ZIMMERMAN Aspirin 81 mg 02/25/19 22:00 03/04/19 10:31 Halfprin Ec PO 81 mg DAILY DAVID Administration Clopidogrel Bisulfate 75 mg 02/25/19 22:00 03/04/19 10:31 Plavix PO 75 mg DAILY DAVID Administration Famotidine 10 mg 02/25/19 22:00 03/04/19 22:30 Pepcid PO 10 mg BID DAVID Administration Furosemide 60 mg 03/03/19 15:00 03/05/19 06:18 Lasix PO 60 mg DAILY@0600 DAVID Administration Heparin Sodium (Porcine) 5,000 unit 02/25/19 22:00 03/04/19 21:58 Heparin SUB-Q 5,000 unit Q12HR DAVID Administration Hydromorphone HCl 0.5 mg 02/25/19 21:11 Dilaudid IV Q3H PRN Pain , Severe (7-10) Sodium Chloride 500 mls @ 50 mls/hr 03/02/19 15:00 Nacl 0.9% 500 Ml IV DIRECT DAVID Levetiracetam 750 mg 02/25/19 22:00 03/04/19 21:56 Keppra PO 750 mg BID DAVID Administration Loperamide HCl 2 mg 03/01/19 14:06 03/01/19 15:10 Imodium PO 2 mg Q2H PRN Administration Diarrhea Metoprolol Tartrate 12.5 mg 02/28/19 10:00 03/04/19 21:57 Lopressor PO 12.5 mg BID DAVID Administration Ondansetron HCl 4 mg 02/25/19 21:11 Zofran IV Q8H PRN Nausea And Vomiting Oxycodone/Acetaminophen 1 tab 02/25/19 21:11 Percocet 5/325 PO Q6H PRN Pain, Moderate (4-6) Pravastatin Sodium 40 mg 02/25/19 22:00 03/04/19 21:56 Pravachol PO 40 mg QHS DAVID Administration Sodium Chloride 10 ml 02/25/19 22:00 03/04/19 21:58 Sodium Chloride Flush Syringe 10 Ml IV 10 ml BID DAVID Administration Sodium Chloride 10 ml 02/25/19 21:11 Sodium Chloride Flush Syringe 10 Ml IV PRN PRN LINE FLUSH
--- NOTE | 2019-03-05 10:16 | Progress Note ---
Assessment and Plan - Patient Problems (1) Acute renal failure superimposed on stage 4 chronic kidney disease Current Visit: Yes Status: Acute Qualifiers: Acute renal failure type: unspecified Qualified Code(s): N17.9 - Acute kidney failure, unspecified; N18.4 - Chronic kidney disease, stage 4 (severe) Plan to address problem: Acute renal failure on CKD stage 4 now appears dialysis dependent with Possible ESRD. baseline creatinine flunctutes between 3-3.5mg/dl creatinine on admission 4.4mg/dl current creatinine worsening from : 4.2-5.2 mg/dl Significant rising creatinine in between dialysis non oliguric reviewed renal US Discussed in detail with has some dementia at baseline and mental status waxes and wanes No acute electrolyte abnormalities and creatinine is not worsening today. 24hr urine collection for creatinine to assess renal function GFR : 17ml/min though this may be an overstimation Renal function worsening since then Ps/p perm cath placement. CXR reviewed with cardiomegaly and some pulmonary congestion continue Lasix 60mg PO daily for now. Dr. Arcos had offered short trial of HD to patient and his Needs outpatient dialysis placement Discussed with patients continue HD MWF Social work to assist with dialysis placement. (2) Dementia Current Visit: No Status: Chronic Plan to address problem: Dementia waxing and waning mental status at risk for delireum Will monitor closely Mental status improved today. (3) HTN (hypertension) Current Visit: No Status: Chronic Plan to address problem: HTN: uncontrolled. Ensure medications. (4) Metabolic acidosis Current Visit: Yes Status: Acute Plan to address problem: Mild Metabolic acidosis : 2/2 CKD discontinue sodium bicarb 650mg bid. currently on hemodialysis. (5) Anemia Current Visit: Yes Status: Acute Qualifiers: Anemia type: due to chronic kidney disease Plan to address problem: Moderate anemia hemoglobin 9.8g/dl Etiology secondary to Chronic Kidney Disease Monitor CBC Subjective Principal diagnosis: anemia Interval history: 83-year-old with medical history significant for hypertension, chronic kidney disease stage IV admitted due to concern for worsening renal function according to the patient has baseline dementia also has history of seizures Patient seen today, Denies any orthopnea or PND. Denies any nausea or vomitting Tolerated dialysis yesterday. Sitting up in bed. Objective - Vital Signs Vital signs: Vital Signs - 12hr 03/04/19 03/05/19 22:57 04:00 Temperature 97.9 F 98.4 F Pulse Rate 88 87 Respiratory 18 20 Rate Blood Pressure 118/73 Blood Pressure 95/61 [Left] O2 Sat by Pulse 100 100 Oximetry - General Appearance General appearance: well-developed, well-nourished EENT: ATNC, PERRL, mucous membranes moist Neck: no JVD Respiratory: Present: Clear to Ascultation Cardiology: regular, S1S2 Gastrointestinal: normal, normoactive bowel sounds Integumentary: no rash Neurologic: alert and oriented x3, CN 3-12 intact Psychiatric: mood/affect appropriate - Lab 03/02/19 06:54 03/05/19 05:35 Most recent lab results Calcium 9.4 mg/dL (8.4-10.2) 03/05/19 05:35 Phosphorus 4.30 mg/dL (2.5-4.5) 02/25/19 14:50 48.8 mg/dL (0.1-20.0) H 02/27/19 19:00 Ur Total Protein 24 Hr 1875.00 mg/dL (2-200) H 02/27/19 19:00 112 mmol/L 02/25/19 18:35 75 mg/dL (5-11.8) H 02/27/19 19:00 - Imaging Chest x-ray: image reviewed (I reviewed CXr with patchy opacities. ) Medications & Allergies - Medications Allergies/Adverse Reactions: Allergies No Known Allergies Allergy (Verified 02/25/19 14:44) Home Medications: Home Medications Medication Instructions Recorded Confirmed Last Taken Type Amlodipine Besylate 10 mg PO DAILY 10/11/16 02/26/19 09/04/17 History Aspirin EC 81 mg PO DAILY 10/11/16 02/26/19 02/24/19 History Clopidogrel Bisulfate [Clopidogrel] 75 mg PO DAILY 10/11/16 02/26/19 02/24/19 History Famotidine 40 mg PO BID 10/11/16 02/26/19 02/24/19 History Lovastatin 40 mg PO HS 10/11/16 02/26/19 02/24/19 History Metoprolol Tartrate 50 mg PO BID 10/11/16 02/26/19 02/24/19 History Vit D3/Folic Acid/B2/B6/B12 1 each PO DAILY 10/11/16 02/26/19 09/04/17 History [Folgard Tablet] Sodium Bicarbonate 650 mg PO TID 11/11/17 02/26/19 02/24/19 History Ondansetron [Zofran Odt] 4 mg PO Q8HR PRN #14 tab.rapdis 06/09/18 02/26/19 Unknown Rx Furosemide 40 mg PO QDAC 02/25/19 02/26/19 02/24/19 History hydrALAZINE [Apresoline TAB] 100 mg PO BID 02/25/19 02/26/19 02/24/19 History levETIRAcetam [Keppra TAB] 750 mg PO BID 02/25/19 02/26/19 02/24/19 History Active Medications: Generic Name Dose Route Start Last Admin Trade Name Freq PRN Reason Stop Dose Admin Acetaminophen 650 mg 02/25/19 21:11 Tylenol PO Q4H PRN Pain MILD(1-3)/Fever >100.5/ZIMMERMAN Aspirin 81 mg 02/25/19 22:00 03/04/19 10:31 Halfprin Ec PO 81 mg DAILY DAVID Administration Clopidogrel Bisulfate 75 mg 02/25/19 22:00 03/04/19 10:31 Plavix PO 75 mg DAILY DAVID Administration Famotidine 10 mg 02/25/19 22:00 03/04/19 22:30 Pepcid PO 10 mg BID DAVID Administration Furosemide 60 mg 03/03/19 15:00 03/05/19 06:18 Lasix PO 60 mg DAILY@0600 DAVID Administration Heparin Sodium (Porcine) 5,000 unit 02/25/19 22:00 03/04/19 21:58 Heparin SUB-Q 5,000 unit Q12HR DAVID Administration Hydromorphone HCl 0.5 mg 02/25/19 21:11 Dilaudid IV Q3H PRN Pain , Severe (7-10) Sodium Chloride 500 mls @ 50 mls/hr 03/02/19 15:00 Nacl 0.9% 500 Ml IV DIRECT DAVID Levetiracetam 750 mg 02/25/19 22:00 03/04/19 21:56 Keppra PO 750 mg BID DAVID Administration Loperamide HCl 2 mg 03/01/19 14:06 03/01/19 15:10 Imodium PO 2 mg Q2H PRN Administration Diarrhea Metoprolol Tartrate 12.5 mg 02/28/19 10:00 03/04/19 21:57 Lopressor PO 12.5 mg BID DAVID Administration Ondansetron HCl 4 mg 02/25/19 21:11 Zofran IV Q8H PRN Nausea And Vomiting Oxycodone/Acetaminophen 1 tab 02/25/19 21:11 Percocet 5/325 PO Q6H PRN Pain, Moderate (4-6) Pravastatin Sodium 40 mg 02/25/19 22:00 03/04/19 21:56 Pravachol PO 40 mg QHS DAVID Administration Sodium Chloride 10 ml 02/25/19 22:00 03/04/19 21:58 Sodium Chloride Flush Syringe 10 Ml IV 10 ml BID DAVID Administration Sodium Chloride 10 ml 02/25/19 21:11 Sodium Chloride Flush Syringe 10 Ml IV PRN PRN LINE FLUSH
[2019-03-05] MEDS: PEPCID PO SCH ×2 (10:42→23:48)
[2019-03-05] MEDS: LOPRESSOR PO SCH ×2 (10:42→23:48)
[2019-03-05] MEDS: HALFPRIN EC PO SCH (10:42)
[2019-03-05] MEDS: KEPPRA PO SCH ×2 (10:42→23:49)
[2019-03-05] MEDS: PLAVIX PO SCH (10:42)
[2019-03-05] MEDS: SODIUM CHLORIDE FLUSH SYRINGE 10 ML IV SCH (10:43)
[2019-03-05] MEDS: HEPARIN SUB-Q SCH ×2 (10:43→23:55)
[2019-03-05] MEDS ORDERED: NACL 0.9% 500 ML 500 ML IV ONE (11:28)
--- NOTE | 2019-03-05 16:30 | Progress Note ---
Assessment and Plan Assessment and plan: Patient is a 83 yo man with a history of CAD s/p CABG, PPM, hypertension, dementia and childhood sz who presents with worsening renal function from Dr. De's [employer] office New ESRD: HD initiation per Nephrology, permacath placed by vascular Acute metabolic encephalopathy: treat the renal failure, resolved. Hypotension: Give a bolus of fluids at 500cc x1 CAD: continue plavix GERD: continue pepcid Dyslipidemia: statin Seizure disorder: continue Keppra and monitor closely Relative hypotension: adjust bp medications Pancytopenia- Hematology following, " Either this could be deficiency or medication related or transient phenomena or this could be myelodysplastic syndrome" Patient will follow with hematology outpatient also. Family meeting done, hemodialysis started, case management arranging for dialysis center outpatient. Discontinue zimmerman catheter. PT consulted for deconditioning, History Interval history: Patient was seen and examined. Follow-up on current diagnosis. No overnight events reported to me But patient is lathergic this morning, noted to have Low BP. Patient denies any chest pain, shortness breath, nausea/vomiting or severe headaches. Imaging, nursing note, chart, labs and old chart reviewed. Still with generalized weakness Hospitalist Physical - Physical exam Narrative exam: Gen: chronic disability, lethargic, noted improvement, sitting up, eating, spouse at bedside HEENT: NCAT, EOMI, PERRL, OP Clear Neck: supple, no adenopathy, no thyromegaly, no JVD CVS/Heart: RRR, normal S1S2, pulses present bilaterally Chest/Lungs: CTA B, Symmetrical chest expansion, good air entry bilaterally GI/Abdomen: soft, NTND, good bowel sounds, no guarding or rebound /Bladder: no suprapubic tenderness, no CVA or paraspinal tenderness Extermity/Skin: no c/c/e, no obvious rash MSK: FROM x 4 Neuro: CN 2-12 grossly intact, no new focal deficits Psych: calm - Constitutional Vitals: Temp Pulse Resp BP Pulse Ox 97.8 F 89 12 74/50 100 03/05/19 11:20 03/05/19 11:20 03/05/19 11:20 03/05/19 11:20 03/05/19 11:20 General appearance: Present: well-nourished Results - Labs CBC & Chem 7: 03/02/19 06:54 06/27/19 05:35 Labs: Laboratory Last Values WBC 3.8 K/mm3 (4.5-11.0) L 03/02/19 06:54 RBC 3.44 M/mm3 (3.65-5.03) L 03/02/19 06:54 Hgb 9.8 gm/dl (11.8-15.2) L 03/02/19 06:54 Hct 29.3 % (35.5-45.6) L 03/02/19 06:54 MCV 85 fl (84-94) 03/02/19 06:54 MCH 28 pg (28-32) 03/02/19 06:54 MCHC 33 % (32-34) 03/02/19 06:54 RDW 14.6 % (13.2-15.2) 03/02/19 06:54 Plt Count 125 K/mm3 (140-440) L 03/02/19 06:54 Lymph % (Auto) 23.7 % (13.4-35.0) 02/27/19 10:15 Rains % (Auto) 11.5 % (0.0-7.3) H 02/27/19 10:15 Eos % (Auto) 3.0 % (0.0-4.3) 02/27/19 10:15 Baso % (Auto) 0.4 % (0.0-1.8) 02/27/19 10:15 Lymph # 1.0 K/mm3 (1.2-5.4) L 02/27/19 10:15 Rains # 0.5 K/mm3 (0.0-0.8) 02/27/19 10:15 Eos # 0.1 K/mm3 (0.0-0.4) 02/27/19 10:15 Baso # 0.0 K/mm3 (0.0-0.1) 02/27/19 10:15 Seg Neutrophils % 61.4 % (40.0-70.0) 02/27/19 10:15 Seg Neutrophils # 2.5 K/mm3 (1.8-7.7) 02/27/19 10:15 PT 13.3 Sec. (12.2-14.9) 02/27/19 10:15 INR 1.04 (0.87-1.13) 02/27/19 10:15 Sodium 138 mmol/L (137-145) 03/05/19 05:35 Potassium 3.7 mmol/L (3.6-5.0) 03/05/19 05:35 Chloride 99.9 mmol/L (98-107) 03/05/19 05:35 Carbon Dioxide 24 mmol/L (22-30) 03/05/19 05:35 18 mmol/L 03/05/19 05:35 BUN 37 mg/dL (9-20) H 03/05/19 05:35 3.8 mg/dL (0.8-1.5) H 03/05/19 05:35 Estimated GFR 18 ml/min 03/05/19 05:35 10 % 03/05/19 05:35 Glucose 117 mg/dL (75-100) H 03/05/19 05:35 POC Glucose 182 (70-105) H 02/27/19 10:08 5.4 % (4-6) 02/25/19 21:47 313 Mosm/kg 03/01/19 10:32 7.5 mg/dL (3.5-7.6) 03/01/19 10:32 Calcium 9.4 mg/dL (8.4-10.2) 03/05/19 05:35 Phosphorus 4.30 mg/dL (2.5-4.5) 02/25/19 14:50 Iron 42 ug/dL (49-181) L 02/28/19 12:32 TIBC 192 mcg/dL (250-450) L 02/28/19 12:32 337.9 ng/mL (13.0-400.0) 02/28/19 12:32 0.40 mg/dL (0.1-1.2) 02/26/19 05:55 AST 17 units/L (5-40) 02/26/19 05:55 ALT 7 units/L (7-56) 02/26/19 05:55 49 units/L (35-129) 02/26/19 05:55 0.079 ng/mL (0.00-0.029) H 02/28/19 00:09 NT-Pro-B Natriuret Pep 6375 pg/mL (0-900) H 02/27/19 10:15 7.2 g/dL (6.3-8.2) 02/26/19 05:55 3.7 g/dL (3.9-5) L 02/26/19 05:55 1.1 % 02/26/19 05:55 Triglycerides 39 mg/dL (2-149) 02/27/19 17:00 Cholesterol 121 mg/dL (50-199) 02/27/19 17:00 68 mg/dL (50-130) 02/27/19 17:00 52 mg/dL (40-59) 02/27/19 17:00 2.32 % 02/27/19 17:00 Vitamin B12 316.3 pg/mL (211-911) 02/28/19 12:32 16.17 ng/mL (7.3-26.0) 02/28/19 12:32 Straw (Yellow) 02/25/19 18:35 Clear (Clear) 02/25/19 18:35 7.0 (5.0-7.0) 02/25/19 18:35 Ur Specific [place] 1.008 (1.003-1.030) 02/25/19 18:35 30 mg/dl mg/dL (Negative) 02/25/19 18:35 Neg mg/dL (Negative) 02/25/19 18:35 Neg mg/dL (Negative) 02/25/19 18:35 Neg (Negative) 02/25/19 18:35 Neg (Negative) 02/25/19 18:35 Neg (Negative) 02/25/19 18:35 < 2.0 mg/dL (<2.0) 02/25/19 18:35 Ur Leukocyte Esterase Neg (Negative) 02/25/19 18:35 1.0 /HPF (0.0-6.0) 02/25/19 18:35 1.0 /HPF (0.0-6.0) 02/25/19 18:35 1+ /HPF (Negative) 02/25/19 18:35 2500 ml 02/27/19 19:00 48.8 mg/dL (0.1-20.0) H 02/27/19 19:00 Ur Creatinine 24 Hour 1.2 (0.8-2.8) 02/27/19 19:00 Ur Total Protein 24 Hr 1875.00 mg/dL (2-200) H 02/27/19 19:00 112 mmol/L 02/25/19 18:35 75 mg/dL (5-11.8) H 02/27/19 19:00 Hepatitis A IgM Ab Non-reactive (NonReactive) 03/02/19 11:49 Hep Bs Antigen Non-reactive (Negative) 03/02/19 11:49 Hep B Core IgM Ab Non-reactive (NonReactive) 03/02/19 11:49 Non-reactive (NonReactive) 03/02/19 11:49 Active Medications - Current Medications Current Medications: Generic Name Dose Route Start Last Admin Trade Name Freq PRN Reason Stop Dose Admin Acetaminophen 650 mg 02/25/19 21:11 Tylenol PO Q4H PRN Pain MILD(1-3)/Fever >100.5/ZIMMERMAN Aspirin 81 mg 02/25/19 22:00 03/05/19 10:42 Halfprin Ec PO 81 mg DAILY DAVID Administration Clopidogrel Bisulfate 75 mg 02/25/19 22:00 03/05/19 10:42 Plavix PO 75 mg DAILY DAVID Administration Famotidine 10 mg 02/25/19 22:00 03/05/19 10:42 Pepcid PO 10 mg BID DAVID Administration Furosemide 60 mg 03/03/19 15:00 03/05/19 06:18 Lasix PO 60 mg DAILY@0600 [facility] Administration Heparin Sodium (Porcine) 5,000 unit 02/25/19 22:00 03/05/19 10:43 Heparin SUB-Q 5,000 unit Q12HR DAVID Administration Hydromorphone HCl 0.5 mg 02/25/19 21:11 Dilaudid IV Q3H PRN Pain , Severe (7-10) Sodium Chloride 500 mls @ 50 mls/hr 03/02/19 15:00 Nacl 0.9% 500 Ml IV DIRECT [facility] Levetiracetam 750 mg 02/25/19 22:00 03/05/19 10:42 Keppra PO 750 mg BID DAVID Administration Loperamide HCl 2 mg 03/01/19 14:06 03/01/19 15:10 Imodium PO 2 mg Q2H PRN Administration Diarrhea Metoprolol Tartrate 12.5 mg 02/28/19 10:00 03/05/19 10:42 Lopressor PO Not Given BID [facility] Ondansetron HCl 4 mg 02/25/19 21:11 Zofran IV Q8H PRN Nausea And Vomiting Oxycodone/Acetaminophen 1 tab 02/25/19 21:11 Percocet 5/325 PO Q6H PRN Pain, Moderate (4-6) Pravastatin Sodium 40 mg 02/25/19 22:00 03/04/19 21:56 Pravachol PO 40 mg QHS DAVID Administration Sodium Chloride 10 ml 02/25/19 22:00 03/05/19 10:43 Sodium Chloride Flush Syringe 10 Ml IV 10 ml BID DAVID Administration Sodium Chloride 10 ml 02/25/19 21:11 Sodium Chloride Flush Syringe 10 Ml IV PRN PRN LINE FLUSH Nutrition/Malnutrition Assess - Dietary Evaluation Nutrition/Malnutrition Findings: Nutrition Notes Start: 02/26/19 09:35 Freq: Status: Active Protocol: Document 03/04/19 13:23 RM (Rec: 03/04/19 13:24 RM [email or web address]) Nutrition Notes Initial or Follow up Brief Note Subjective/Other Information Diet advanced to Renal today. Nepro Vanilla BID added to diet. Nutrition Intervention Add Supplement/Snack (indicate name/kcal Nepro Vanilla BID /protein ) Provides kCal: 850 Provides Protein (gm) 38 Follow-Up By: 03/06/19 Additional Comments Follow for PO and ONS intakes
[2019-03-05] MEDS: PRAVACHOL PO SCH (23:48)
[2019-03-06 06:11] LABS: Basophils % (Auto) 0.5 % (0.0-1.8); Eosinophils # (Auto) 0.3 K/mm3 (0.0-0.4); Eosinophils % (Auto) 7.5 % (0.0-4.3); Hematocrit 29.4 % (35.5-45.6); Hemoglobin 9.6 gm/dl (11.8-15.2); Lymphocytes # (Auto) 1.3 K/mm3 (1.2-5.4); Lymphocytes % (Auto) 33.7 % (13.4-35.0); Mean Corpuscular HGB Conc 33 % (32-34); Mean Corpuscular Volume 86 fl (84-94); Monocytes # (Auto) 0.6 K/mm3 (0.0-0.8); Monocytes % (Auto) 15.3 % (0.0-7.3); Platelet Count 115 K/mm3 (140-440); Red Blood Count 3.42 M/mm3 (3.65-5.03); Red Cell Distribution Width 14.3 % (13.2-15.2)
[2019-03-06 06:28] LABS: Calcium 9.7 mg/dL (8.4-10.2)
[2019-03-06] MEDS: SODIUM CHLORIDE FLUSH SYRINGE 10 ML IV SCH ×3 (07:41→23:31)
[2019-03-06] MEDS: LASIX PO SCH (07:45)
--- NOTE | 2019-03-06 08:11 | Hem/Onc Progress Note ---
Assessment and Plan 1. Anemia, leukopenia and thrombocytopenia. deficiency investigations. MCV is not elevated. Either this could be deficiency or medication related or transient phenomena or this could be myelodysplastic syndrome. We will need to follow the blood count to see the trend. 2. New end-stage renal disease. The patient may need dialysis. Nephrology is following. 3. Coronary artery disease. 4. History of gastroesophageal reflux disease. 5. History of hyperlipidemia. 6. History of seizure disorder. There is mention of dementia and hypotension in the notes, he has a pacemaker. 03/06 -CKD may have a role in the cytopenia - OP follow up an option - MDS a differential will follow cbc b12 - folate normal - low iron - will follow labs oral iron trial - Patient Problems (1) Anemia Current Visit: Yes Status: Acute Qualifiers: Anemia type: due to chronic kidney disease Subjective Date of service: 03/06/19 Principal diagnosis: anemia - low plt Interval history: transfered to [facility] unit Objective - Exam Narrative Exam: Pain none General appearance no acute distress Performance status limited self care Eyes EOM intact ENT hearing intact LNs - cervical not palpable Neck normal ROM Respiratory on BIPAP breath sounds CTA CVS S1 S2 + Extremities normal temperature General GI Soft non tender Rectal deferred Male - deferred Skin warm Musculoskeletal generalized weakness Neurologically moves all extremities - Constitutional Vitals: Last Vital Signs Temp 97.7 F 03/06/19 01:52 Pulse 68 03/06/19 07:24 Resp 16 03/06/19 01:52 BP 114/68 03/06/19 01:52 Pulse Ox 100 03/06/19 07:24 - Labs Lab Results: Laboratory Results - last 24 hr 03/06/19 03/06/19 05:15 05:15 WBC 3.8 L RBC 3.42 L Hgb 9.6 L Hct 29.4 L MCV 86 MCH 28 MCHC 33 RDW 14.3 Plt Count 115 L Lymph % (Auto) 33.7 Real % (Auto) 15.3 H Eos % (Auto) 7.5 H Baso % (Auto) 0.5 Lymph # 1.3 Real # 0.6 Eos # 0.3 Baso # 0.0 Seg Neutrophils % 43.0 Seg Neutrophils # 1.6 L Sodium 137 Potassium 4.2 Chloride 95.7 L Carbon Dioxide 24 Anion Gap 22 BUN 56 H Creatinine 5.8 H D Estimated GFR 11 BUN/Creatinine Ratio 10 Glucose 104 H Calcium 9.7 Medications & Allergies - Medications Allergies/Adverse Reactions: Allergies No Known Allergies Allergy (Verified 02/25/19 14:44) Home Medications: Home Medications Medication Instructions Recorded Confirmed Last Taken Type Aspirin EC 81 mg PO DAILY 10/11/16 02/26/19 02/24/19 History Clopidogrel Bisulfate [Clopidogrel] 75 mg PO DAILY 10/11/16 02/26/19 02/24/19 History Famotidine 40 mg PO BID 10/11/16 02/26/19 02/24/19 History Lovastatin 40 mg PO HS 10/11/16 02/26/19 02/24/19 History Vit D3/Folic Acid/B2/B6/B12 1 each PO DAILY 10/11/16 02/26/19 09/04/17 History [Folgard Tablet] Sodium Bicarbonate 650 mg PO TID 11/11/17 02/26/19 02/24/19 History Ondansetron [Zofran ODT TAB] 4 mg PO Q8HR PRN #14 tab.rapdis 06/09/18 02/26/19 Unknown Rx Furosemide 40 mg PO QDAC 02/25/19 02/26/19 02/24/19 History levETIRAcetam [Keppra TAB] 750 mg PO BID 02/25/19 02/26/19 02/24/19 History Active Medications: Generic Name Dose Route Start Last Admin Trade Name Freq PRN Reason Stop Dose Admin Acetaminophen 650 mg 02/25/19 21:11 Tylenol PO Q4H PRN Pain MILD(1-3)/Fever >100.5/ZIMMERMAN Aspirin 81 mg 02/25/19 22:00 03/05/19 10:42 Halfprin Ec PO 81 mg DAILY DAVID Administration Clopidogrel Bisulfate 75 mg 02/25/19 22:00 03/05/19 10:42 Plavix PO 75 mg DAILY DAVID Administration Famotidine 10 mg 02/25/19 22:00 03/05/19 23:48 Pepcid PO 10 mg BID DAVID Administration Furosemide 60 mg 03/03/19 15:00 03/06/19 07:45 Lasix PO 60 mg DAILY@0600 DAVID Administration Heparin Sodium (Porcine) 5,000 unit 02/25/19 22:00 03/05/19 23:55 Heparin SUB-Q 5,000 unit Q12HR DAVID Administration Hydromorphone HCl 0.5 mg 02/25/19 21:11 Dilaudid IV Q3H PRN Pain , Severe (7-10) Sodium Chloride 500 mls @ 50 mls/hr 03/02/19 15:00 Nacl 0.9% 500 Ml IV DIRECT DAVID Levetiracetam 750 mg 02/25/19 22:00 03/05/19 23:49 Keppra PO 750 mg BID DAVID Administration Loperamide HCl 2 mg 03/01/19 14:06 03/01/19 15:10 Imodium PO 2 mg Q2H PRN Administration Diarrhea Metoprolol Tartrate 12.5 mg 02/28/19 10:00 03/05/19 23:48 Lopressor PO 12.5 mg BID DAVID Administration Ondansetron HCl 4 mg 02/25/19 21:11 Zofran IV Q8H PRN Nausea And Vomiting Oxycodone/Acetaminophen 1 tab 02/25/19 21:11 Percocet 5/325 PO Q6H PRN Pain, Moderate (4-6) Pravastatin Sodium 40 mg 02/25/19 22:00 03/05/19 23:48 Pravachol PO 40 mg QHS DAVID Administration Sodium Chloride 10 ml 02/25/19 22:00 03/06/19 07:41 Sodium Chloride Flush Syringe 10 Ml IV 10 ml BID DAVID Administration Sodium Chloride 10 ml 02/25/19 21:11 Sodium Chloride Flush Syringe 10 Ml IV PRN PRN LINE FLUSH
[2019-03-06] MEDS: HEPARIN SUB-Q SCH ×2 (10:00→23:27)
[2019-03-06] MEDS: KEPPRA PO SCH ×2 (10:00→23:26)
[2019-03-06] MEDS: LOPRESSOR PO SCH (10:00)
[2019-03-06] MEDS: PEPCID PO SCH ×2 (10:00→23:26)
[2019-03-06] MEDS: PLAVIX PO SCH (10:00)
[2019-03-06] MEDS: HALFPRIN EC PO SCH (10:00)
--- NOTE | 2019-03-06 12:36 | Discharge Summary ---
Providers - Providers Date of Admission: 02/25/19 17:15 Attending physician: SARA REYNOLDS MD 02/25/19 21:11 Consult to Physician [CONS] Routine Comment: Consulting Provider: JACK COREA Physician Instructions: Reason For Exam: ESRD 02/26/19 17:24 Consult to Physician [CONS] Routine Comment: Consulting Provider: JAYLIN CAICEDO Physician Instructions: Reason For Exam: pancytopenia 03/01/19 13:12 Consult to Physician [CONS] Routine Comment: Consulting Provider: LYNDON FISCHER Physician Instructions: Reason For Exam: HD access 03/04/19 10:58 Physical Therapy Evaluation and Treat [CONS] Routine Comment: Reason For Exam: DIFF AMBULATING [facility] Condition: Stable Hospital course: Patient is a 83 yo man with a history of CAD s/p CABG, PPM, hypertension, dementia and childhood sz who presents with worsening renal function from Dr. Corea's [employer] office New ESRD: HD initiation per Nephrology, permacath placed by vascular Acute metabolic encephalopathy: treat the renal failure, resolved. Hypotension: Give a bolus of fluids at 500cc x1 CAD: continue plavix GERD: continue pepcid Dyslipidemia: statin Seizure disorder: continue Keppra and monitor closely Relative hypotension: adjust bp medications Pancytopenia- Hematology following, " Either this could be deficiency or medication related or transient phenomena or this could be myelodysplastic syndrome" Patient will follow with hematology outpatient also. Family meeting done, hemodialysis started, case management arranging for dialysis center outpatient. Discontinue zimmerman catheter. PT consulted for deconditioning, Disposition: [id number]/[place]-06 HOME [facility] Exam - Constitutional Vitals: Temp Pulse Resp BP Pulse Ox 97.2 F L 65 16 95/59 100 03/06/19 10:50 03/06/19 11:45 03/06/19 10:50 03/06/19 11:45 03/06/19 07:24 Plan Activity: advance as tolerated, fall precautions Diet: low fat, renal Special Instructions: record blood sugar diary [facility] - 3-5 Days OSVALDO PASCAL MD [Staff Physician] - 7 Days JAYLIN CAICEDO MD [Staff Physician] - 7 Days
--- NOTE | 2019-03-06 14:01 | Progress Note ---
Assessment and Plan - Patient Problems (1) Acute renal failure superimposed on stage 4 chronic kidney disease Current Visit: Yes Status: Acute Qualifiers: Acute renal failure type: unspecified Qualified Code(s): N17.9 - Acute kidney failure, unspecified; N18.4 - Chronic kidney disease, stage 4 (severe) Plan to address problem: Acute renal failure on CKD stage 4 now appears dialysis dependent with Possible ESRD. baseline creatinine flunctutes between 3-3.5mg/dl creatinine on admission 4.4mg/dl current creatinine worsening from : 4.2-5.2 mg/dl Significant rising creatinine in between dialysis non oliguric reviewed renal US Discussed in detail with has some dementia at baseline and mental status waxes and wanes No acute electrolyte abnormalities and creatinine is not worsening today. 24hr urine collection for creatinine to assess renal function GFR : 17ml/min though this may be an overstimation Renal function worsening since then Ps/p perm cath placement. CXR reviewed with cardiomegaly and some pulmonary congestion continue Lasix 60mg PO daily for now. Dr. Arcos had offered short trial of HD to patient and his Needs outpatient dialysis placement Discussed with patients continue HD MWF Social work to assist with dialysis placement. (2) Dementia Current Visit: No Status: Chronic Plan to address problem: Dementia waxing and waning mental status at risk for delireum Will monitor closely Mental status improved today. (3) HTN (hypertension) Current Visit: No Status: Chronic Plan to address problem: HTN: controlled. Ensure medications. (4) Anemia Current Visit: Yes Status: Acute Qualifiers: Anemia type: due to chronic kidney disease Plan to address problem: Moderate anemia hemoglobin 9.6g/dl Etiology secondary to Chronic Kidney Disease Monitor CBC Subjective Principal diagnosis: anemia Interval history: 83-year-old with medical history significant for hypertension, chronic kidney disease stage IV admitted due to concern for worsening renal function according to the patient has baseline dementia also has history of seizures Patient seen today, I attest I saw the patient on hemodialysis at 11am. Denies any orthopnea or PND. Denies any nausea or vomitting . Sitting up in bed. Objective - Vital Signs Vital signs: Vital Signs - 12hr 03/06/19 03/06/19 03/06/19 07:24 08:19 10:00 Temperature 98 F Pulse Rate 68 68 Respiratory 20 Rate Blood Pressure Blood Pressure 107/69 [Left] O2 Sat by Pulse 100 Oximetry 03/06/19 03/06/19 03/06/19 10:50 11:00 11:15 Temperature 97.2 F L Pulse Rate 71 66 70 Respiratory 16 Rate Blood Pressure 115/60 114/63 94/59 Blood Pressure [Left] O2 Sat by Pulse Oximetry 03/06/19 03/06/19 11:30 11:45 Temperature Pulse Rate 67 65 Respiratory Rate Blood Pressure 113/59 95/59 Blood Pressure [Left] O2 Sat by Pulse Oximetry - General Appearance General appearance: well-developed, well-nourished EENT: ATNC, PERRL, mucous membranes moist Neck: no JVD Respiratory: Present: Clear to Ascultation Cardiology: regular, S1S2 Gastrointestinal: normal, normoactive bowel sounds Integumentary: no rash Neurologic: no focal deficit, CN 3-12 intact Psychiatric: mood/affect appropriate - Lab 03/06/19 05:15 03/06/19 05:15 Most recent lab results Calcium 9.7 mg/dL (8.4-10.2) 03/06/19 05:15 Phosphorus 4.30 mg/dL (2.5-4.5) 02/25/19 14:50 48.8 mg/dL (0.1-20.0) H 02/27/19 19:00 Ur Total Protein 24 Hr 1875.00 mg/dL (2-200) H 02/27/19 19:00 112 mmol/L 02/25/19 18:35 75 mg/dL (5-11.8) H 02/27/19 19:00 - Imaging Chest x-ray: image reviewed (I reviewed CXr with patchy opacities and increased in interstitial markings. ) Medications & Allergies - Medications Allergies/Adverse Reactions: Allergies No Known Allergies Allergy (Verified 02/25/19 14:44) Home Medications: Home Medications Medication Instructions Recorded Confirmed Last Taken Type Aspirin EC 81 mg PO DAILY 10/11/16 02/26/19 02/24/19 History Clopidogrel Bisulfate [Clopidogrel] 75 mg PO DAILY 10/11/16 02/26/19 02/24/19 History Famotidine 40 mg PO BID 10/11/16 02/26/19 02/24/19 History Lovastatin 40 mg PO HS 10/11/16 02/26/19 02/24/19 History Vit D3/Folic Acid/B2/B6/B12 1 each PO DAILY 10/11/16 02/26/19 09/04/17 History [Folgard Tablet] Sodium Bicarbonate 650 mg PO TID 11/11/17 02/26/19 02/24/19 History Ondansetron [Zofran ODT TAB] 4 mg PO Q8HR PRN #14 tab.rapdis 06/09/18 02/26/19 Unknown Rx Furosemide 40 mg PO QDAC 02/25/19 02/26/19 02/24/19 History levETIRAcetam [Keppra TAB] 750 mg PO BID 02/25/19 02/26/19 02/24/19 History Active Medications: Generic Name Dose Route Start Last Admin Trade Name Freq PRN Reason Stop Dose Admin Acetaminophen 650 mg 02/25/19 21:11 Tylenol PO Q4H PRN Pain MILD(1-3)/Fever >100.5/ZIMMERMAN Aspirin 81 mg 02/25/19 22:00 03/06/19 10:00 Halfprin Ec PO Not Given DAILY [facility] Clopidogrel Bisulfate 75 mg 02/25/19 22:00 03/06/19 10:00 Plavix PO Not Given DAILY [facility] Famotidine 10 mg 02/25/19 22:00 03/06/19 10:00 Pepcid PO Not Given BID DAVID Furosemide 60 mg 03/03/19 15:00 03/06/19 07:45 Lasix PO 60 mg DAILY@0600 DAVID Administration Heparin Sodium (Porcine) 5,000 unit 02/25/19 22:00 03/06/19 10:00 Heparin SUB-Q Not Given Q12HR [facility] Hydromorphone HCl 0.5 mg 02/25/19 21:11 Dilaudid IV Q3H PRN Pain , Severe (7-10) Sodium Chloride 500 mls @ 50 mls/hr 03/02/19 15:00 Nacl 0.9% 500 Ml IV DIRECT DAVID Levetiracetam 750 mg 02/25/19 22:00 03/06/19 10:00 Keppra PO Not Given BID DAVID Loperamide HCl 2 mg 03/01/19 14:06 03/01/19 15:10 Imodium PO 2 mg Q2H PRN Administration Diarrhea Ondansetron HCl 4 mg 02/25/19 21:11 Zofran IV Q8H PRN Nausea And Vomiting Oxycodone/Acetaminophen 1 tab 02/25/19 21:11 Percocet 5/325 PO Q6H PRN Pain, Moderate (4-6) Pravastatin Sodium 40 mg 02/25/19 22:00 03/05/19 23:48 Pravachol PO 40 mg QHS DAVID Administration Sodium Chloride 10 ml 02/25/19 22:00 03/06/19 10:00 Sodium Chloride Flush Syringe 10 Ml IV Not Given BID DAVID Sodium Chloride 10 ml 02/25/19 21:11 Sodium Chloride Flush Syringe 10 Ml IV PRN PRN LINE FLUSH
--- NOTE | 2019-03-06 14:37 | Progress Note ---
Assessment and Plan Assessment and plan: Patient is a 83 yo man with a history of CAD s/p CABG, PPM, hypertension, dementia and childhood sz who presents with worsening renal function from Dr. De's Ham Clerk office * Patient's dialysis for better management of improvement of encephalopathy does have occasional waxing and waning mentation in between dialysis. * The pressure medications for lipid prescription due to hypo-tension. * Patient required 500 mL bolus of fluid of 03/05/2019 New ESRD: HD initiation per Nephrology, permacath placed by vascular Acute metabolic encephalopathy: treat the renal failure, resolved. Hypotension: Give a bolus of fluids at 500cc x1 CAD: continue plavix GERD: continue pepcid Dyslipidemia: statin Seizure disorder: continue Keppra and monitor closely Relative hypotension: adjust bp medications Pancytopenia- Hematology following, " Either this could be deficiency or medication related or transient phenomena or this could be myelodysplastic syndrome" Patient will follow with hematology outpatient also. Family meeting done, hemodialysis started, case management arranging for dialysis center outpatient. Discontinue zimmerman catheter. PT consulted for deconditioning, Disposition pending outpatient dialysis set up. History Interval history: Patient was seen and examined. Follow-up on current diagnosis. still weak, intermittent waxing and waning mentation but more improved today Hospitalist Physical - Physical exam Narrative exam: Gen: chronic disability, lethargic, noted improvement, HEENT: NCAT, EOMI, PERRL, OP Clear Neck: supple, no adenopathy, no thyromegaly, no JVD CVS/Heart: RRR, normal S1S2, pulses present bilaterally Chest/Lungs: CTA B, Symmetrical chest expansion, good air entry bilaterally GI/Abdomen: soft, NTND, good bowel sounds, no guarding or rebound /Bladder: no suprapubic tenderness, no CVA or paraspinal tenderness Extermity/Skin: no c/c/e, no obvious rash MSK: FROM x 4 Neuro: CN 2-12 grossly intact, no new focal deficits Psych: calm - Constitutional Vitals: Temp Pulse Resp BP Pulse Ox 97.2 F L 65 16 95/59 100 03/06/19 10:50 03/06/19 11:45 03/06/19 10:50 03/06/19 11:45 03/06/19 07:24 General appearance: Present: well-nourished Results - Labs CBC & Chem 7: 03/06/19 05:15 03/06/19 05:15 Labs: Laboratory Last Values WBC 3.8 K/mm3 (4.5-11.0) L 03/06/19 05:15 RBC 3.42 M/mm3 (3.65-5.03) L 03/06/19 05:15 Hgb 9.6 gm/dl (11.8-15.2) L 03/06/19 05:15 Hct 29.4 % (35.5-45.6) L 03/06/19 05:15 MCV 86 fl (84-94) 03/06/19 05:15 MCH 28 pg (28-32) 03/06/19 05:15 MCHC 33 % (32-34) 03/06/19 05:15 RDW 14.3 % (13.2-15.2) 03/06/19 05:15 Plt Count 115 K/mm3 (140-440) L 03/06/19 05:15 Lymph % (Auto) 33.7 % (13.4-35.0) 03/06/19 05:15 [place] % (Auto) 15.3 % (0.0-7.3) H 03/06/19 05:15 Eos % (Auto) 7.5 % (0.0-4.3) H 03/06/19 05:15 Baso % (Auto) 0.5 % (0.0-1.8) 03/06/19 05:15 Lymph # 1.3 K/mm3 (1.2-5.4) 03/06/19 05:15 [place] # 0.6 K/mm3 (0.0-0.8) 03/06/19 05:15 Eos # 0.3 K/mm3 (0.0-0.4) 03/06/19 05:15 Baso # 0.0 K/mm3 (0.0-0.1) 03/06/19 05:15 Seg Neutrophils % 43.0 % (40.0-70.0) 03/06/19 05:15 Seg Neutrophils # 1.6 K/mm3 (1.8-7.7) L 03/06/19 05:15 PT 13.3 Sec. (12.2-14.9) 02/27/19 10:15 INR 1.04 (0.87-1.13) 02/27/19 10:15 Sodium 137 mmol/L (137-145) 03/06/19 05:15 Potassium 4.2 mmol/L (3.6-5.0) 03/06/19 05:15 Chloride 95.7 mmol/L (98-107) L 03/06/19 05:15 Carbon Dioxide 24 mmol/L (22-30) 03/06/19 05:15 22 mmol/L 03/06/19 05:15 BUN 56 mg/dL (9-20) H 03/06/19 05:15 5.8 mg/dL (0.8-1.5) H D 03/06/19 05:15 Estimated GFR 11 ml/min 03/06/19 05:15 10 % 03/06/19 05:15 Glucose 104 mg/dL (75-100) H 03/06/19 05:15 POC Glucose 182 (70-105) H 02/27/19 10:08 5.4 % (4-6) 02/25/19 21:47 313 Mosm/kg 03/01/19 10:32 7.5 mg/dL (3.5-7.6) 03/01/19 10:32 Calcium 9.7 mg/dL (8.4-10.2) 03/06/19 05:15 Phosphorus 4.30 mg/dL (2.5-4.5) 02/25/19 14:50 Iron 42 ug/dL (49-181) L 02/28/19 12:32 TIBC 192 mcg/dL (250-450) L 02/28/19 12:32 337.9 ng/mL (13.0-400.0) 02/28/19 12:32 0.40 mg/dL (0.1-1.2) 02/26/19 05:55 AST 17 units/L (5-40) 02/26/19 05:55 ALT 7 units/L (7-56) 02/26/19 05:55 49 units/L (35-129) 02/26/19 05:55 0.079 ng/mL (0.00-0.029) H 02/28/19 00:09 NT-Pro-B Natriuret Pep 6375 pg/mL (0-900) H 02/27/19 10:15 7.2 g/dL (6.3-8.2) 02/26/19 05:55 3.7 g/dL (3.9-5) L 02/26/19 05:55 1.1 % 02/26/19 05:55 Triglycerides 39 mg/dL (2-149) 02/27/19 17:00 Cholesterol 121 mg/dL (50-199) 02/27/19 17:00 68 mg/dL (50-130) 02/27/19 17:00 52 mg/dL (40-59) 02/27/19 17:00 2.32 % 02/27/19 17:00 Vitamin B12 316.3 pg/mL (211-911) 02/28/19 12:32 16.17 ng/mL (7.3-26.0) 02/28/19 12:32 Straw (Yellow) 02/25/19 18:35 Clear (Clear) 02/25/19 18:35 7.0 (5.0-7.0) 02/25/19 18:35 Ur Specific [place] 1.008 (1.003-1.030) 02/25/19 18:35 30 mg/dl mg/dL (Negative) 02/25/19 18:35 Neg mg/dL (Negative) 02/25/19 18:35 Neg mg/dL (Negative) 02/25/19 18:35 Neg (Negative) 02/25/19 18:35 Neg (Negative) 02/25/19 18:35 Neg (Negative) 02/25/19 18:35 < 2.0 mg/dL (<2.0) 02/25/19 18:35 Ur Leukocyte Esterase Neg (Negative) 02/25/19 18:35 1.0 /HPF (0.0-6.0) 02/25/19 18:35 1.0 /HPF (0.0-6.0) 02/25/19 18:35 1+ /HPF (Negative) 02/25/19 18:35 2500 ml 02/27/19 19:00 48.8 mg/dL (0.1-20.0) H 02/27/19 19:00 Ur Creatinine 24 Hour 1.2 (0.8-2.8) 02/27/19 19:00 Ur Total Protein 24 Hr 1875.00 mg/dL (2-200) H 02/27/19 19:00 112 mmol/L 02/25/19 18:35 75 mg/dL (5-11.8) H 02/27/19 19:00 Hepatitis A IgM Ab Non-reactive (NonReactive) 03/02/19 11:49 Hep Bs Antigen Non-reactive (Negative) 03/02/19 11:49 Hep B Core IgM Ab Non-reactive (NonReactive) 03/02/19 11:49 Non-reactive (NonReactive) 03/02/19 11:49 Active Medications - Current Medications Current Medications: Generic Name Dose Route Start Last Admin Trade Name Freq PRN Reason Stop Dose Admin Acetaminophen 650 mg 02/25/19 21:11 Tylenol PO Q4H PRN Pain MILD(1-3)/Fever >100.5/ZIMMERMAN Aspirin 81 mg 02/25/19 22:00 03/06/19 10:00 Halfprin Ec PO Not Given DAILY [facility] Clopidogrel Bisulfate 75 mg 02/25/19 22:00 03/06/19 10:00 Plavix PO Not Given DAILY [facility] Famotidine 10 mg 02/25/19 22:00 03/06/19 10:00 Pepcid PO Not Given BID [facility] Furosemide 60 mg 03/03/19 15:00 03/06/19 07:45 Lasix PO 60 mg DAILY@0600 [facility] Administration Heparin Sodium (Porcine) 5,000 unit 02/25/19 22:00 03/06/19 10:00 Heparin SUB-Q Not Given Q12HR [facility] Hydromorphone HCl 0.5 mg 02/25/19 21:11 Dilaudid IV Q3H PRN Pain , Severe (7-10) Sodium Chloride 500 mls @ 50 mls/hr 03/02/19 15:00 Nacl 0.9% 500 Ml IV DIRECT [facility] Levetiracetam 750 mg 02/25/19 22:00 03/06/19 10:00 Keppra PO Not Given BID [facility] Loperamide HCl 2 mg 03/01/19 14:06 03/01/19 15:10 Imodium PO 2 mg Q2H PRN Administration Diarrhea Ondansetron HCl 4 mg 02/25/19 21:11 Zofran IV Q8H PRN Nausea And Vomiting Oxycodone/Acetaminophen 1 tab 02/25/19 21:11 Percocet 5/325 PO Q6H PRN Pain, Moderate (4-6) Pravastatin Sodium 40 mg 02/25/19 22:00 03/05/19 23:48 Pravachol PO 40 mg QHS DAVID Administration Sodium Chloride 10 ml 02/25/19 22:00 03/06/19 10:00 Sodium Chloride Flush Syringe 10 Ml IV Not Given BID DAVID Sodium Chloride 10 ml 02/25/19 21:11 Sodium Chloride Flush Syringe 10 Ml IV PRN PRN LINE FLUSH Nutrition/Malnutrition Assess - Dietary Evaluation Nutrition/Malnutrition Findings: Nutrition Notes Start: 02/26/19 09:35 Freq: Status: Active Protocol: Document 03/04/19 13:23 RM (Rec: 03/04/19 13:24 RM [email or web address]) Nutrition Notes Initial or Follow up Brief Note Subjective/Other Information Diet advanced to Renal today. Nepro Vanilla BID added to diet. Nutrition Intervention Add Supplement/Snack (indicate name/kcal Nepro Vanilla BID /protein ) Provides kCal: 850 Provides Protein (gm) 38 Follow-Up By: 03/06/19 Additional Comments Follow for PO and ONS intakes
[2019-03-06] MEDS: PRAVACHOL PO SCH (23:26)
[2019-03-07 06:19] LABS: Calcium 9.5 mg/dL (8.4-10.2)
[2019-03-07] MEDS: LASIX PO SCH (06:24)
--- NOTE | 2019-03-07 08:35 | Progress Note ---
Assessment and Plan Assessment and plan: Patient is a 83 yo man with a history of CAD s/p CABG, PPM, hypertension, dementia and childhood sz who presents with worsening renal function from Dr. De's Grading Machine Operator office * Patient's dialysis for better management of improvement of encephalopathy does have occasional waxing and waning mentation in between dialysis. * The pressure medications for lipid prescription due to hypo-tension. * Patient required 500 mL bolus of fluid of 03/05/2019 * Patient received IV iron infusion per Laminator Preforms recommendation. New ESRD: HD initiation per Nephrology, permacath placed by vascular Acute metabolic encephalopathy: treat the renal failure, resolved. Hypotension: Give a bolus of fluids at 500cc x1 CAD: continue plavix GERD: continue pepcid Dyslipidemia: statin Seizure disorder: continue Keppra and monitor closely Relative hypotension: adjust bp medications Pancytopenia- Hematology following, " Either this could be deficiency or medication related or transient phenomena or this could be myelodysplastic syndrome" Patient will follow with hematology outpatient also. Family meeting done, hemodialysis started, case management arranging for dialysis center outpatient. Discontinue zimmerman catheter. PT consulted for deconditioning, Disposition pending outpatient dialysis set up. still awaiting placement History Interval history: Patient was seen and examined. Follow-up on current diagnosis. still weak, Mentation better today Hospitalist Physical - Physical exam Narrative exam: Gen: chronic disability, lethargic, noted improvement, HEENT: NCAT, EOMI, PERRL, OP Clear Neck: supple, no adenopathy, no thyromegaly, no JVD CVS/Heart: RRR, normal S1S2, pulses present bilaterally Chest/Lungs: CTA B, Symmetrical chest expansion, good air entry bilaterally GI/Abdomen: soft, NTND, good bowel sounds, no guarding or rebound /Bladder: no suprapubic tenderness, no CVA or paraspinal tenderness Extermity/Skin: no c/c/e, no obvious rash MSK: FROM x 4 Neuro: CN 2-12 grossly intact, no new focal deficits Psych: calm - Constitutional Vitals: Temp Pulse Resp BP Pulse Ox 98.6 F 87 18 113/71 100 03/07/19 07:21 03/07/19 07:57 03/07/19 07:57 03/07/19 07:21 03/07/19 07:57 General appearance: Present: well-nourished Results - Labs CBC & Chem 7: 03/06/19 05:15 03/08/19 05:44 Labs: Laboratory Last Values WBC 3.8 K/mm3 (4.5-11.0) L 03/06/19 05:15 RBC 3.42 M/mm3 (3.65-5.03) L 03/06/19 05:15 Hgb 9.6 gm/dl (11.8-15.2) L 03/06/19 05:15 Hct 29.4 % (35.5-45.6) L 03/06/19 05:15 MCV 86 fl (84-94) 03/06/19 05:15 MCH 28 pg (28-32) 03/06/19 05:15 MCHC 33 % (32-34) 03/06/19 05:15 RDW 14.3 % (13.2-15.2) 03/06/19 05:15 Plt Count 115 K/mm3 (140-440) L 03/06/19 05:15 Lymph % (Auto) 33.7 % (13.4-35.0) 03/06/19 05:15 [place] % (Auto) 15.3 % (0.0-7.3) H 03/06/19 05:15 Eos % (Auto) 7.5 % (0.0-4.3) H 03/06/19 05:15 Baso % (Auto) 0.5 % (0.0-1.8) 03/06/19 05:15 Lymph # 1.3 K/mm3 (1.2-5.4) 03/06/19 05:15 [place] # 0.6 K/mm3 (0.0-0.8) 03/06/19 05:15 Eos # 0.3 K/mm3 (0.0-0.4) 03/06/19 05:15 Baso # 0.0 K/mm3 (0.0-0.1) 03/06/19 05:15 Seg Neutrophils % 43.0 % (40.0-70.0) 03/06/19 05:15 Seg Neutrophils # 1.6 K/mm3 (1.8-7.7) L 03/06/19 05:15 PT 13.3 Sec. (12.2-14.9) 02/27/19 10:15 INR 1.04 (0.87-1.13) 02/27/19 10:15 Sodium 138 mmol/L (137-145) 03/07/19 04:56 Potassium 4.0 mmol/L (3.6-5.0) 03/07/19 04:56 Chloride 99.8 mmol/L (98-107) 03/07/19 04:56 Carbon Dioxide 25 mmol/L (22-30) 03/07/19 04:56 17 mmol/L 03/07/19 04:56 BUN 40 mg/dL (9-20) H 03/07/19 04:56 4.6 mg/dL (0.8-1.5) H 03/07/19 04:56 Estimated GFR 15 ml/min 03/07/19 04:56 9 % 03/07/19 04:56 Glucose 113 mg/dL (75-100) H 03/07/19 04:56 POC Glucose 182 (70-105) H 02/27/19 10:08 5.4 % (4-6) 02/25/19 21:47 313 Mosm/kg 03/01/19 10:32 7.5 mg/dL (3.5-7.6) 03/01/19 10:32 Calcium 9.5 mg/dL (8.4-10.2) 03/07/19 04:56 Phosphorus 4.30 mg/dL (2.5-4.5) 02/25/19 14:50 Iron 42 ug/dL (49-181) L 02/28/19 12:32 TIBC 192 mcg/dL (250-450) L 02/28/19 12:32 337.9 ng/mL (13.0-400.0) 02/28/19 12:32 0.40 mg/dL (0.1-1.2) 02/26/19 05:55 AST 17 units/L (5-40) 02/26/19 05:55 ALT 7 units/L (7-56) 02/26/19 05:55 49 units/L (35-129) 02/26/19 05:55 0.079 ng/mL (0.00-0.029) H 02/28/19 00:09 NT-Pro-B Natriuret Pep 6375 pg/mL (0-900) H 02/27/19 10:15 7.2 g/dL (6.3-8.2) 02/26/19 05:55 3.7 g/dL (3.9-5) L 02/26/19 05:55 1.1 % 02/26/19 05:55 Triglycerides 39 mg/dL (2-149) 02/27/19 17:00 Cholesterol 121 mg/dL (50-199) 02/27/19 17:00 68 mg/dL (50-130) 02/27/19 17:00 52 mg/dL (40-59) 02/27/19 17:00 2.32 % 02/27/19 17:00 Vitamin B12 316.3 pg/mL (211-911) 02/28/19 12:32 16.17 ng/mL (7.3-26.0) 02/28/19 12:32 Straw (Yellow) 02/25/19 18:35 Clear (Clear) 02/25/19 18:35 7.0 (5.0-7.0) 02/25/19 18:35 Ur Specific [place] 1.008 (1.003-1.030) 02/25/19 18:35 30 mg/dl mg/dL (Negative) 02/25/19 18:35 Neg mg/dL (Negative) 02/25/19 18:35 Neg mg/dL (Negative) 02/25/19 18:35 Neg (Negative) 02/25/19 18:35 Neg (Negative) 02/25/19 18:35 Neg (Negative) 02/25/19 18:35 < 2.0 mg/dL (<2.0) 02/25/19 18:35 Ur Leukocyte Esterase Neg (Negative) 02/25/19 18:35 1.0 /HPF (0.0-6.0) 02/25/19 18:35 1.0 /HPF (0.0-6.0) 02/25/19 18:35 1+ /HPF (Negative) 02/25/19 18:35 2500 ml 02/27/19 19:00 48.8 mg/dL (0.1-20.0) H 02/27/19 19:00 Ur Creatinine 24 Hour 1.2 (0.8-2.8) 02/27/19 19:00 Ur Total Protein 24 Hr 1875.00 mg/dL (2-200) H 02/27/19 19:00 112 mmol/L 02/25/19 18:35 75 mg/dL (5-11.8) H 02/27/19 19:00 Hepatitis A IgM Ab Non-reactive (NonReactive) 03/02/19 11:49 Hep Bs Antigen Non-reactive (Negative) 03/02/19 11:49 Hep B Core IgM Ab Non-reactive (NonReactive) 03/02/19 11:49 Non-reactive (NonReactive) 03/02/19 11:49 Active Medications - Current Medications Current Medications: Generic Name Dose Route Start Last Admin Trade Name Freq PRN Reason Stop Dose Admin Acetaminophen 650 mg 02/25/19 21:11 Tylenol PO Q4H PRN Pain MILD(1-3)/Fever >100.5/ZIMMERMAN Aspirin 81 mg 02/25/19 22:00 03/06/19 10:00 Halfprin Ec PO Not Given DAILY [facility] Clopidogrel Bisulfate 75 mg 02/25/19 22:00 03/06/19 10:00 Plavix PO Not Given DAILY [facility] Famotidine 10 mg 02/25/19 22:00 03/06/19 23:26 Pepcid PO 10 mg BID DAVID Administration Furosemide 60 mg 03/03/19 15:00 03/07/19 06:24 Lasix PO 60 mg DAILY@0600 DAVID Administration Heparin Sodium (Porcine) 5,000 unit 02/25/19 22:00 03/06/19 23:27 Heparin SUB-Q 5,000 unit Q12HR DAVID Administration Hydromorphone HCl 0.5 mg 02/25/19 21:11 Dilaudid IV Q3H PRN Pain , Severe (7-10) Sodium Chloride 500 mls @ 50 mls/hr 03/02/19 15:00 Nacl 0.9% 500 Ml IV DIRECT DAVID Levetiracetam 750 mg 02/25/19 22:00 03/06/19 23:26 Keppra PO 750 mg BID DAVID Administration Loperamide HCl 2 mg 03/01/19 14:06 03/01/19 15:10 Imodium PO 2 mg Q2H PRN Administration Diarrhea Ondansetron HCl 4 mg 02/25/19 21:11 Zofran IV Q8H PRN Nausea And Vomiting Oxycodone/Acetaminophen 1 tab 02/25/19 21:11 Percocet 5/325 PO Q6H PRN Pain, Moderate (4-6) Pravastatin Sodium 40 mg 02/25/19 22:00 03/06/19 23:26 Pravachol PO 40 mg QHS DAVID Administration Sodium Chloride 10 ml 02/25/19 22:00 03/06/19 23:31 Sodium Chloride Flush Syringe 10 Ml IV 10 ml BID DAVID Administration Sodium Chloride 10 ml 02/25/19 21:11 Sodium Chloride Flush Syringe 10 Ml IV PRN PRN LINE FLUSH Nutrition/Malnutrition Assess - Dietary Evaluation Nutrition/Malnutrition Findings: Nutrition Notes Start: 02/26/19 09:35 Freq: Status: Active Protocol: Document 03/06/19 17:16 RM (Rec: 03/06/19 17:20 RM [id number]) Nutrition Notes Initial or Follow up Reassessment Current Diagnosis Acute Kidney Injury,CKD (stage V CKD),Hypertension Other Pertinent Diagnosis on HD, Dementia, Encephalopathy Current Diet Renal Labs/Tests Reviewed Pertinent Medications Lasix Height 5 ft 11 in Weight 70.1 kg [place] Body Weight (kg) 78.18 BMI 21.5 Subjective/Other Information Pt not in room at time of visit. Recorded PO intake 42% X 3 meals. Tech unsure whether pt has been drinking Nepro. Percent of energy/protein needs met: 52%/39% Burn Absent Trauma Absent #1 Nutrition Diagnosis Malnutrition Diagnosis Progress(for reassessment Continues documentation) Is patient on ventilator? No Is Patient Ambulatory and/or Out of Bed No REE-([facility]-confined to bed) 2831.875 Calculation Used for Recommendations Kcal/kg Additional Notes Pro needs 1.2-1.4g/k-99g/ day Fluid needs 1-1.5L/day Nutrition Intervention Change Diet Order: Continue Renal Add Supplement/Snack (indicate name/kcal Nepro Vanilla BID /protein ) Provides kCal: 850 Provides Protein (gm) 38 Goal #1 Meet at least 75% of calorie and protein needs via PO and ONS intakes Goal #2 Wt gain/ maintenance Follow-Up By: 02/10/19 Additional Comments Follow for PO and ONS intakes
[2019-03-07] MEDS: HALFPRIN EC PO SCH (09:00)
[2019-03-07] MEDS: HEPARIN SUB-Q SCH ×2 (09:00→21:43)
[2019-03-07] MEDS: PLAVIX PO SCH (09:00)
[2019-03-07] MEDS: PEPCID PO SCH ×2 (09:00→21:42)
[2019-03-07] MEDS: SODIUM CHLORIDE FLUSH SYRINGE 10 ML IV SCH ×2 (09:00→21:44)
[2019-03-07] MEDS: KEPPRA PO SCH ×2 (09:00→21:42)
--- NOTE | 2019-03-07 09:40 | Progress Note ---
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 * HTN * Hyperkalemia - resolved * Metabolic acidosis * Monoclonal gammaopathy * Anemia in CKD * CAD * Arrhythmia * Near Syncope Plan: * continue hd q MWF * outpatient hd unit placement * Daily lytes * Avoid nephrotoxins * Renal diet Subjective Date of service: 03/07/19 Principal diagnosis: anemia Interval history: resting well in bed today Objective - Exam Narrative Exam: General appearance: well-developed, well-nourished EENT: ATNC, PERRL, mucous membranes moist Neck: no JVD Respiratory: Present: Clear to Ascultation Cardiology: regular, S1S2 Gastrointestinal: normal, normoactive bowel sounds Integumentary: no rash Neurologic: no focal deficit, CN 3-12 intact Psychiatric: mood/affect appropriate - Vital Signs Vital signs: Vital Signs - 12hr 03/07/19 03/07/19 03/07/19 02:49 07:21 07:57 Temperature 98.5 F 98.6 F Pulse Rate 84 87 Pulse Rate [ 87 Apical] Respiratory 18 18 18 Rate Blood Pressure 103/56 113/71 O2 Sat by Pulse 97 100 100 Oximetry - Lab 03/06/19 05:15 03/07/19 04:56 Most recent lab results Calcium 9.5 mg/dL (8.4-10.2) 03/07/19 04:56 Phosphorus 4.30 mg/dL (2.5-4.5) 02/25/19 14:50 48.8 mg/dL (0.1-20.0) H 02/27/19 19:00 Ur Total Protein 24 Hr 1875.00 mg/dL (2-200) H 02/27/19 19:00 112 mmol/L 02/25/19 18:35 75 mg/dL (5-11.8) H 02/27/19 19:00 Medications & Allergies - Medications Allergies/Adverse Reactions: Allergies No Known Allergies Allergy (Verified 02/25/19 14:44) Home Medications: Home Medications Medication Instructions Recorded Confirmed Last Taken Type Aspirin EC 81 mg PO DAILY 10/11/16 02/26/19 02/24/19 History Clopidogrel Bisulfate [Clopidogrel] 75 mg PO DAILY 10/11/16 02/26/19 02/24/19 History Famotidine 40 mg PO BID 02/10/2602/26/19 02/24/19 History Lovastatin 40 mg PO HS 10/11/16 02/26/19 02/24/19 History Vit D3/Folic Acid/B2/B6/B12 1 each PO DAILY 10/11/16 02/26/19 09/04/17 History [Folgard Tablet] Sodium Bicarbonate 650 mg PO TID 11/11/17 02/26/19 02/24/19 History Ondansetron [Zofran ODT TAB] 4 mg PO Q8HR PRN #14 tab.rapdis 06/09/18 02/26/19 Unknown Rx Furosemide 40 mg PO QDAC 02/25/19 02/26/19 02/24/19 History levETIRAcetam [Keppra TAB] 750 mg PO BID 02/25/19 02/26/19 02/24/19 History Active Medications: Generic Name Dose Route Start Last Admin Trade Name Freq PRN Reason Stop Dose Admin Acetaminophen 650 mg 02/25/19 21:11 Tylenol PO Q4H PRN Pain MILD(1-3)/Fever >100.5/ZIMMERMAN Aspirin 81 mg 02/25/19 22:00 03/07/19 09:00 Halfprin Ec PO 81 mg DAILY DAVID Administration Clopidogrel Bisulfate 75 mg 02/25/19 22:00 03/07/19 09:00 Plavix PO 75 mg DAILY DAVID Administration Famotidine 10 mg 02/25/19 22:00 03/07/19 09:00 Pepcid PO 10 mg BID DAVID Administration Furosemide 60 mg 03/03/19 15:00 03/07/19 06:24 Lasix PO 60 mg DAILY@0600 DAVID Administration Heparin Sodium (Porcine) 5,000 unit 02/25/19 22:00 03/07/19 09:00 Heparin SUB-Q 5,000 unit Q12HR DAVID Administration Hydromorphone HCl 0.5 mg 02/25/19 21:11 Dilaudid IV Q3H PRN Pain , Severe (7-10) Sodium Chloride 500 mls @ 50 mls/hr 03/02/19 15:00 Nacl 0.9% 500 Ml IV DIRECT DAVID Levetiracetam 750 mg 02/25/19 22:00 03/07/19 09:00 Keppra PO 750 mg BID DAVID Administration Loperamide HCl 2 mg 03/01/19 14:06 03/01/19 15:10 Imodium PO 2 mg Q2H PRN Administration Diarrhea Ondansetron HCl 4 mg 02/25/19 21:11 Zofran IV Q8H PRN Nausea And Vomiting Oxycodone/Acetaminophen 1 tab 02/25/19 21:11 Percocet 5/325 PO Q6H PRN Pain, Moderate (4-6) Pravastatin Sodium 40 mg 02/25/19 22:00 03/06/19 23:26 Pravachol PO 40 mg QHS DAVID Administration Sodium Chloride 10 ml 02/25/19 22:00 03/07/19 09:00 Sodium Chloride Flush Syringe 10 Ml IV 10 ml BID DAVID Administration Sodium Chloride 10 ml 02/25/19 21:11 Sodium Chloride Flush Syringe 10 Ml IV PRN PRN LINE FLUSH
[2019-03-07] MEDS: FEOSOL PO SCH (21:42)
[2019-03-07] MEDS: PRAVACHOL PO SCH (21:42)
[2019-03-08] MEDS: LASIX PO SCH (05:47)
[2019-03-08 06:35] LABS: Calcium 9.5 mg/dL (8.4-10.2)
--- NOTE | 2019-03-08 07:01 | Progress Note ---
Assessment and Plan Assessment and plan: Patient is a 83 yo man with a history of CAD s/p CABG, PPM, hypertension, dementia and childhood sz who presents with worsening renal function from Dr. De's Fibre Composite Technician office * Patient's dialysis for better management of improvement of encephalopathy does have occasional waxing and waning mentation in between dialysis. * The pressure medications for lipid prescription due to hypo-tension. * Patient required 500 mL bolus of fluid of 03/05/2019 * Patient received IV iron infusion per Poultry Feed Supervisor recommendation. New ESRD: HD initiation per Nephrology, permacath placed by vascular Acute metabolic encephalopathy: treat the renal failure, resolved. Hypotension: Resolved, Continue to hold all BP meds at this time CAD: continue plavix GERD: continue pepcid Dyslipidemia: statin Deconditioning: PT recommends home with franko walker Seizure disorder: continue Keppra and monitor closely Pancytopenia- Hematology following, " Either this could be deficiency or medication related or transient phenomena or this could be myelodysplastic syndrome" Patient will follow with hematology outpatient also. Family meeting done, hemodialysis started, case management arranging for dialysis center outpatient. Discontinue zimmerman catheter. PT consulted for deconditioning, Disposition pending outpatient dialysis set up. still awaiting placement Plan discussed with spouse History Interval history: Patient was seen and examined. Follow-up on current diagnosis. No new complaints, spouse at bedside. Hospitalist Physical - Physical exam Narrative exam: Gen: chronic disability, lethargic, noted improvement, HEENT: NCAT, EOMI, PERRL, OP Clear Neck: supple, no adenopathy, no thyromegaly, no JVD CVS/Heart: RRR, normal S1S2, pulses present bilaterally Chest/Lungs: CTA B, Symmetrical chest expansion, good air entry bilaterally GI/Abdomen: soft, NTND, good bowel sounds, no guarding or rebound /Bladder: no suprapubic tenderness, no CVA or paraspinal tenderness Extermity/Skin: no c/c/e, no obvious rash MSK: FROM x 4 Neuro: CN 2-12 grossly intact, no new focal deficits Psych: calm - Constitutional Vitals: Temp Pulse Resp BP Pulse Ox 98.8 F 70 18 106/65 100 03/08/19 01:55 03/08/19 01:55 03/08/19 01:55 03/08/19 01:55 03/08/19 01:55 General appearance: Present: well-nourished Results - Labs CBC & Chem 7: 03/06/19 05:15 03/08/19 05:44 Labs: Laboratory Last Values WBC 3.8 K/mm3 (4.5-11.0) L 03/06/19 05:15 RBC 3.42 M/mm3 (3.65-5.03) L 03/06/19 05:15 Hgb 9.6 gm/dl (11.8-15.2) L 03/06/19 05:15 Hct 29.4 % (35.5-45.6) L 03/06/19 05:15 MCV 86 fl (84-94) 03/06/19 05:15 MCH 28 pg (28-32) 03/06/19 05:15 MCHC 33 % (32-34) 03/06/19 05:15 RDW 14.3 % (13.2-15.2) 03/06/19 05:15 Plt Count 115 K/mm3 (140-440) L 03/06/19 05:15 Lymph % (Auto) 33.7 % (13.4-35.0) 03/06/19 05:15 Rooks % (Auto) 15.3 % (0.0-7.3) H 03/06/19 05:15 Eos % (Auto) 7.5 % (0.0-4.3) H 03/06/19 05:15 Baso % (Auto) 0.5 % (0.0-1.8) 03/06/19 05:15 Lymph # 1.3 K/mm3 (1.2-5.4) 03/06/19 05:15 Rooks # 0.6 K/mm3 (0.0-0.8) 03/06/19 05:15 Eos # 0.3 K/mm3 (0.0-0.4) 03/06/19 05:15 Baso # 0.0 K/mm3 (0.0-0.1) 03/06/19 05:15 Seg Neutrophils % 43.0 % (40.0-70.0) 03/06/19 05:15 Seg Neutrophils # 1.6 K/mm3 (1.8-7.7) L 03/06/19 05:15 PT 13.3 Sec. (12.2-14.9) 02/27/19 10:15 INR 1.04 (0.87-1.13) 02/27/19 10:15 Sodium 135 mmol/L (137-145) L 03/08/19 05:44 Potassium 4.0 mmol/L (3.6-5.0) 03/08/19 05:44 Chloride 94.1 mmol/L (98-107) L 03/08/19 05:44 Carbon Dioxide 24 mmol/L (22-30) 03/08/19 05:44 21 mmol/L 03/08/19 05:44 BUN 61 mg/dL (9-20) H 03/08/19 05:44 5.9 mg/dL (0.8-1.5) H 03/08/19 05:44 Estimated GFR 11 ml/min 03/08/19 05:44 10 % 03/08/19 05:44 Glucose 106 mg/dL (75-100) H 03/08/19 05:44 POC Glucose 182 (70-105) H 02/27/19 10:08 5.4 % (4-6) 02/25/19 21:47 313 Mosm/kg 03/01/19 10:32 7.5 mg/dL (3.5-7.6) 03/01/19 10:32 Calcium 9.5 mg/dL (8.4-10.2) 03/08/19 05:44 Phosphorus 4.30 mg/dL (2.5-4.5) 02/25/19 14:50 Iron 42 ug/dL (49-181) L 02/28/19 12:32 TIBC 192 mcg/dL (250-450) L 02/28/19 12:32 337.9 ng/mL (13.0-400.0) 02/28/19 12:32 0.40 mg/dL (0.1-1.2) 02/26/19 05:55 AST 17 units/L (5-40) 02/26/19 05:55 ALT 7 units/L (7-56) 02/26/19 05:55 49 units/L (35-129) 02/26/19 05:55 0.079 ng/mL (0.00-0.029) H 02/28/19 00:09 NT-Pro-B Natriuret Pep 6375 pg/mL (0-900) H 02/27/19 10:15 7.2 g/dL (6.3-8.2) 02/26/19 05:55 3.7 g/dL (3.9-5) L 02/26/19 05:55 1.1 % 02/26/19 05:55 Triglycerides 39 mg/dL (2-149) 02/27/19 17:00 Cholesterol 121 mg/dL (50-199) 02/27/19 17:00 68 mg/dL (50-130) 02/27/19 17:00 52 mg/dL (40-59) 02/27/19 17:00 2.32 % 02/27/19 17:00 Vitamin B12 316.3 pg/mL (211-911) 02/28/19 12:32 16.17 ng/mL (7.3-26.0) 02/28/19 12:32 Straw (Yellow) 02/25/19 18:35 Clear (Clear) 02/25/19 18:35 7.0 (5.0-7.0) 02/25/19 18:35 Ur Specific [place] 1.008 (1.003-1.030) 02/25/19 18:35 30 mg/dl mg/dL (Negative) 02/25/19 18:35 Neg mg/dL (Negative) 02/25/19 18:35 Neg mg/dL (Negative) 02/25/19 18:35 Neg (Negative) 02/25/19 18:35 Neg (Negative) 02/25/19 18:35 Neg (Negative) 02/25/19 18:35 < 2.0 mg/dL (<2.0) 02/25/19 18:35 Ur Leukocyte Esterase Neg (Negative) 02/25/19 18:35 1.0 /HPF (0.0-6.0) 02/25/19 18:35 1.0 /HPF (0.0-6.0) 02/25/19 18:35 1+ /HPF (Negative) 02/25/19 18:35 2500 ml 02/27/19 19:00 48.8 mg/dL (0.1-20.0) H 02/27/19 19:00 Ur Creatinine 24 Hour 1.2 (0.8-2.8) 02/27/19 19:00 Ur Total Protein 24 Hr 1875.00 mg/dL (2-200) H 02/27/19 19:00 112 mmol/L 02/25/19 18:35 75 mg/dL (5-11.8) H 02/27/19 19:00 Hepatitis A IgM Ab Non-reactive (NonReactive) 03/02/19 11:49 Hep Bs Antigen Non-reactive (Negative) 03/02/19 11:49 Hep B Core IgM Ab Non-reactive (NonReactive) 03/02/19 11:49 Non-reactive (NonReactive) 03/02/19 11:49 Active Medications - Current Medications Current Medications: Generic Name Dose Route Start Last Admin Trade Name Freq PRN Reason Stop Dose Admin Acetaminophen 650 mg 02/25/19 21:11 Tylenol PO Q4H PRN Pain MILD(1-3)/Fever >100.5/ZIMMERMAN Aspirin 81 mg 02/25/19 22:00 03/07/19 09:00 Halfprin Ec PO 81 mg DAILY DAVID Administration Clopidogrel Bisulfate 75 mg 02/25/19 22:00 03/07/19 09:00 Plavix PO 75 mg DAILY DAVID Administration Famotidine 10 mg 02/25/19 22:00 03/07/19 21:42 Pepcid PO 10 mg BID DAVID Administration Ferrous Sulfate 325 mg 03/07/19 22:00 03/07/19 21:42 Feosol PO 325 mg BID DAVID Administration Furosemide 60 mg 03/03/19 15:00 03/08/19 05:47 Lasix PO 60 mg DAILY@0600 DAVID Administration Heparin Sodium (Porcine) 5,000 unit 02/25/19 22:00 03/07/19 21:43 Heparin SUB-Q 5,000 unit Q12HR DAVID Administration Hydromorphone HCl 0.5 mg 02/25/19 21:11 Dilaudid IV Q3H PRN Pain , Severe (7-10) Sodium Chloride 500 mls @ 50 mls/hr 03/02/19 15:00 Nacl 0.9% 500 Ml IV DIRECT DAVID Levetiracetam 750 mg 02/25/19 22:00 03/07/19 21:42 Keppra PO 750 mg BID DAVID Administration Loperamide HCl 2 mg 03/01/19 14:06 03/01/19 15:10 Imodium PO 2 mg Q2H PRN Administration Diarrhea Ondansetron HCl 4 mg 02/25/19 21:11 Zofran IV Q8H PRN Nausea And Vomiting Oxycodone/Acetaminophen 1 tab 02/25/19 21:11 Percocet 5/325 PO Q6H PRN Pain, Moderate (4-6) Pravastatin Sodium 40 mg 02/25/19 22:00 03/07/19 21:42 Pravachol PO 40 mg QHS DAVID Administration Sodium Chloride 10 ml 02/25/19 22:00 03/07/19 21:44 Sodium Chloride Flush Syringe 10 Ml IV 10 ml BID DAVID Administration Sodium Chloride 10 ml 02/25/19 21:11 Sodium Chloride Flush Syringe 10 Ml IV PRN PRN LINE FLUSH Nutrition/Malnutrition Assess - Dietary Evaluation Nutrition/Malnutrition Findings: Nutrition Notes Start: 02/26/19 09:35 Freq: Status: Active Protocol: Document 03/06/19 17:16 RM (Rec: 03/06/19 17:20 RM [id number]) Nutrition Notes Initial or Follow up Reassessment Current Diagnosis Acute Kidney Injury,CKD (stage V CKD),Hypertension Other Pertinent Diagnosis on HD, Dementia, Encephalopathy Current Diet Renal Labs/Tests Reviewed Pertinent Medications Lasix Height 5 ft 11 in Weight 70.1 kg [place] Body Weight (kg) 78.18 BMI 21.5 Subjective/Other Information Pt not in room at time of visit. Recorded PO intake 42% X 3 meals. Tech unsure whether pt has been drinking Nepro. Percent of energy/protein needs met: 52%/39% Burn Absent Trauma Absent #1 Nutrition Diagnosis Malnutrition Diagnosis Progress(for reassessment Continues documentation) Is patient on ventilator? No Is Patient Ambulatory and/or Out of Bed No REE-([facility]-confined to bed) 4386.858 Calculation Used for Recommendations Kcal/kg Additional Notes Pro needs 1.2-1.4g/k-99g/ day Fluid needs 1-1.5L/day Nutrition Intervention Change Diet Order: Continue Renal Add Supplement/Snack (indicate name/kcal Nepro Vanilla BID /protein ) Provides kCal: 850 Provides Protein (gm) 38 Goal #1 Meet at least 75% of calorie and protein needs via PO and ONS intakes Goal #2 Wt gain/ maintenance Follow-Up By: 02/10/19 Additional Comments Follow for PO and ONS intakes
--- NOTE | 2019-03-08 08:47 | Progress Note ---
Assessment and Plan Impression: * ESRD--HD dependent * HTN * Hyperkalemia - resolved * Metabolic acidosis * Monoclonal gammaopathy * Anemia in CKD * CAD * Arrhythmia * Near Syncope Plan: * continue hd q MWF * outpatient hd unit placement * Daily lytes * Avoid nephrotoxins * Renal diet Subjective Date of service: 03/08/19 Principal diagnosis: anemia - low plt Interval history: resting well in bed today Objective - Exam Narrative Exam: General appearance: well-developed, well-nourished EENT: ATNC, PERRL, mucous membranes moist Neck: no JVD Respiratory: Present: Clear to Ascultation Cardiology: regular, S1S2 Gastrointestinal: normal, normoactive bowel sounds Integumentary: no rash Neurologic: no focal deficit, CN 3-12 intact Psychiatric: mood/affect appropriate - Vital Signs Vital signs: Vital Signs - 12hr 03/08/19 03/08/19 03/08/19 01:55 07:12 08:05 Temperature 98.8 F 98.4 F Pulse Rate 70 75 Pulse Rate [ 82 Apical] Respiratory 18 18 16 Rate Blood Pressure 106/65 116/61 O2 Sat by Pulse 100 99 98 Oximetry - Lab 03/06/19 05:15 03/08/19 05:44 Most recent lab results Calcium 9.5 mg/dL (8.4-10.2) 03/08/19 05:44 Phosphorus 4.30 mg/dL (2.5-4.5) 02/25/19 14:50 48.8 mg/dL (0.1-20.0) H 02/27/19 19:00 Ur Total Protein 24 Hr 1875.00 mg/dL (2-200) H 02/27/19 19:00 112 mmol/L 02/25/19 18:35 75 mg/dL (5-11.8) H 02/27/19 19:00 Medications & Allergies - Medications Allergies/Adverse Reactions: Allergies No Known Allergies Allergy (Verified 02/25/19 14:44) Home Medications: Home Medications Medication Instructions Recorded Confirmed Last Taken Type Aspirin EC 81 mg PO DAILY 10/11/16 02/26/19 02/24/19 History Clopidogrel Bisulfate [Clopidogrel] 75 mg PO DAILY 10/11/16 02/26/19 02/24/19 H istory Famotidine 40 mg PO BID 10/11/16 02/26/19 02/24/19 History Lovastatin 40 mg PO HS 10/11/16 02/26/19 02/24/19 History Vit D3/Folic Acid/B2/B6/B12 1 each PO DAILY 10/11/16 02/26/19 09/04/17 History [Folgard Tablet] Sodium Bicarbonate 650 mg PO TID 11/11/17 02/26/19 02/24/19 History Ondansetron [Zofran ODT TAB] 4 mg PO Q8HR PRN #14 tab.rapdis 06/09/18 02/26/19 Unknown Rx Furosemide 40 mg PO QDAC 02/25/19 02/26/19 02/24/19 History levETIRAcetam [Keppra TAB] 750 mg PO BID 02/25/19 02/26/19 02/24/19 History Active Medications: Generic Name Dose Route Start Last Admin Trade Name Freq PRN Reason Stop Dose Admin Acetaminophen 650 mg 02/25/19 21:11 Tylenol PO Q4H PRN Pain MILD(1-3)/Fever >100.5/ZIMMERMAN Aspirin 81 mg 02/25/19 22:00 03/07/19 09:00 Halfprin Ec PO 81 mg DAILY DAVID Administration Clopidogrel Bisulfate 75 mg 02/25/19 22:00 03/07/19 09:00 Plavix PO 75 mg DAILY DAVID Administration Famotidine 10 mg 02/25/19 22:00 03/07/19 21:42 Pepcid PO 10 mg BID DAVID Administration Ferrous Sulfate 325 mg 03/07/19 22:00 03/07/19 21:42 Feosol PO 325 mg BID DAVID Administration Furosemide 60 mg 03/03/19 15:00 03/08/19 05:47 Lasix PO 60 mg DAILY@0600 DAVID Administration Heparin Sodium (Porcine) 5,000 unit 02/25/19 22:00 03/07/19 21:43 Heparin SUB-Q 5,000 unit Q12HR DAVID Administration Hydromorphone HCl 0.5 mg 02/25/19 21:11 Dilaudid IV Q3H PRN Pain , Severe (7-10) Sodium Chloride 500 mls @ 50 mls/hr 03/02/19 15:00 Nacl 0.9% 500 Ml IV DIRECT DAVID Levetiracetam 750 mg 02/25/19 22:00 03/07/19 21:42 Keppra PO 750 mg BID DAVID Administration Loperamide HCl 2 mg 03/01/19 14:06 03/01/19 15:10 Imodium PO 2 mg Q2H PRN Administration Diarrhea Ondansetron HCl 4 mg 02/25/19 21:11 Zofran IV Q8H PRN Nausea And Vomiting Oxycodone/Acetaminophen 1 tab 02/25/19 21:11 Percocet 5/325 PO Q6H PRN Pain, Moderate (4-6) Pravastatin Sodium 40 mg 02/25/19 22:00 03/07/19 21:42 Pravachol PO 40 mg QHS DAVID Administration Sodium Chloride 10 ml 02/25/19 22:00 03/07/19 21:44 Sodium Chloride Flush Syringe 10 Ml IV 10 ml BID DAVID Administration Sodium Chloride 10 ml 02/25/19 21:11 Sodium Chloride Flush Syringe 10 Ml IV PRN PRN LINE FLUSH
[2019-03-08] MEDS: FEOSOL PO SCH ×2 (09:14→21:24)
[2019-03-08] MEDS: KEPPRA PO SCH ×2 (09:14→21:24)
[2019-03-08] MEDS: PEPCID PO SCH ×2 (09:14→21:24)
[2019-03-08] MEDS: PLAVIX PO SCH (09:15)
[2019-03-08] MEDS: HEPARIN SUB-Q SCH ×2 (09:15→21:24)
[2019-03-08] MEDS: HALFPRIN EC PO SCH (09:15)
[2019-03-08] MEDS: SODIUM CHLORIDE FLUSH SYRINGE 10 ML IV SCH ×2 (09:22→21:25)
--- NOTE | 2019-03-08 13:27 | Hem/Onc Progress Note ---
Assessment and Plan 1. Anemia, leukopenia and thrombocytopenia. deficiency investigations. MCV is not elevated. Either this could be deficiency or medication related or transient phenomena or this could be myelodysplastic syndrome. We will need to follow the blood count to see the trend. 2. New end-stage renal disease. The patient may need dialysis. Nephrology is following. 3. Coronary artery disease. 4. History of gastroesophageal reflux disease. 5. History of hyperlipidemia. 6. History of seizure disorder. There is mention of dementia and hypotension in the notes, he has a pacemaker. 03/08 -CKD may have a role in the cytopenia - OP follow up an option - MDS a differential will follow cbc b12 - folate normal - low iron - will follow labs oral iron trial d/w - Patient Problems (1) Anemia Current Visit: Yes Status: Acute Qualifiers: Anemia type: due to chronic kidney disease Subjective Date of service: 03/08/19 Principal diagnosis: anemia - low plt Interval history: no bleeding Objective - Exam Narrative Exam: Pain none General appearance no acute distress Performance status limited self care Eyes EOM intact ENT hearing intact LNs - cervical not palpable Neck normal ROM Respiratory on BIPAP breath sounds CTA CVS S1 S2 + Extremities normal temperature General GI Soft non tender Rectal deferred Male - deferred Skin warm Musculoskeletal generalized weakness Neurologically moves all extremities - Constitutional Vitals: Last Vital Signs Temp 98.4 F 03/08/19 07:12 Pulse 82 03/08/19 08:05 Resp 16 03/08/19 08:05 BP 116/61 03/08/19 07:12 Pulse Ox 98 03/08/19 08:05 - Labs Lab Results: Laboratory Results - last 24 hr 03/08/19 05:44 Sodium 135 L Potassium 4.0 Chloride 94.1 L Carbon Dioxide 24 Anion Gap 21 BUN 61 H Creatinine 5.9 H Estimated GFR 11 BUN/Creatinine Ratio 10 Glucose 106 H Calcium 9.5 Medications & Allergies - Medications Allergies/Adverse Reactions: Allergies No Known Allergies Allergy (Verified 02/25/19 14:44) Home Medications: Home Medications Medication Instructions Recorded Confirmed Last Taken Type Aspirin EC 81 mg PO DAILY 10/11/16 02/26/19 02/24/19 History Clopidogrel Bisulfate [Clopidogrel] 75 mg PO DAILY 10/11/16 02/26/19 02/24/19 History Famotidine 40 mg PO BID 10/11/16 02/26/1902/24/19 History Lovastatin 40 mg PO HS 10/11/16 02/26/19 02/24/19 History Vit D3/Folic Acid/B2/B6/B12 1 each PO DAILY 10/11/16 02/26/19 09/04/17 History [Folgard Tablet] Sodium Bicarbonate 650 mg PO TID 11/11/17 02/26/19 02/24/19 History Ondansetron [Zofran ODT TAB] 4 mg PO Q8HR PRN #14 tab.rapdis 06/09/18 02/26/19 Unknown Rx Furosemide 40 mg PO QDAC 02/25/19 02/26/19 02/24/19 History levETIRAcetam [Keppra TAB] 750 mg PO BID 02/25/19 02/26/19 02/24/19 History Active Medications: Generic Name Dose Route Start Last Admin Trade Name Freq PRN Reason Stop Dose Admin Acetaminophen 650 mg 02/25/19 21:11 Tylenol PO Q4H PRN Pain MILD(1-3)/Fever >100.5/ZIMMERMAN Aspirin 81 mg 02/25/19 22:00 03/08/19 09:15 Halfprin Ec PO 81 mg DAILY DAVID Administration Clopidogrel Bisulfate 75 mg 02/25/19 22:00 03/08/19 09:15 Plavix PO 75 mg DAILY DAVID Administration Famotidine 10 mg 02/25/19 22:00 03/08/19 09:14 Pepcid PO 10 mg BID DAVID Administration Ferrous Sulfate 325 mg 03/07/19 22:00 03/08/19 09:14 Feosol PO 325 mg BID DAVID Administration Furosemide 60 mg 03/03/19 15:00 03/08/19 05:47 Lasix PO 60 mg DAILY@0600 DAVID Administration Heparin Sodium (Porcine) 5,000 unit 02/25/19 22:00 03/08/19 09:15 Heparin SUB-Q 5,000 unit Q12HR DAVID Administration Hydromorphone HCl 0.5 mg 02/25/19 21:11 Dilaudid IV Q3H PRN Pain , Severe (7-10) Sodium Chloride 500 mls @ 50 mls/hr 03/02/19 15:00 Nacl 0.9% 500 Ml IV DIRECT DAVID Levetiracetam 750 mg 02/25/19 22:00 03/08/19 09:14 Keppra PO 750 mg BID DAVID Administration Loperamide HCl 2 mg 03/01/19 14:06 03/01/19 15:10 Imodium PO 2 mg Q2H PRN Administration Diarrhea Ondansetron HCl 4 mg 02/25/19 21:11 Zofran IV Q8H PRN Nausea And Vomiting Oxycodone/Acetaminophen 1 tab 02/25/19 21:11 Percocet 5/325 PO Q6H PRN Pain, Moderate (4-6) Pravastatin Sodium 40 mg 02/25/19 22:00 03/07/19 21:42 Pravachol PO 40 mg QHS DAVID Administration Sodium Chloride 10 ml 02/25/19 22:00 03/08/19 09:22 Sodium Chloride Flush Syringe 10 Ml IV 10 ml BID DAVID Administration Sodium Chloride 10 ml 02/25/19 21:11 Sodium Chloride Flush Syringe 10 Ml IV PRN PRN LINE FLUSH
[2019-03-08] MEDS: PRAVACHOL PO SCH (21:24)
[2019-03-09] MEDS: LASIX PO SCH (05:28)
--- NOTE | 2019-03-09 08:33 | Progress Note ---
Assessment and Plan Impression: * ESRD * Hypertension * Hyperkalemia - resolved * Metabolic acidosis * Monoclonal gammaopathy * Anemia in CKD * CAD * Arrhythmia * Near Syncope Plan: * Continue HD MWF * UF as tolerated * Continue Lasix 60mg daily * Dose medications for renal function * Avoid nephrotoxins * Renal diet * Epogen TIW prn * AM labs * Outpatient hemodialysis clinic placement in progress per 6/28 CM note Subjective Date of service: 03/09/19 Principal diagnosis: anemia - low plt Interval history: Patient has no complaints today. Objective - Vital Signs Vital signs: Vital Signs - 12hr 03/09/19 03/09/19 03/09/19 02:00 07:45 07:48 Temperature 97.6 F Pulse Rate 82 78 Pulse Rate [ 78 Apical] Respiratory 18 18 18 Rate Blood Pressure 113/65 Blood Pressure 120/72 [Left] O2 Sat by Pulse 98 97 97 Oximetry - General Appearance General appearance: well-developed, well-nourished EENT: ATNC Respiratory: Present: Clear to Ascultation Cardiology: regular, S1S2 Gastrointestinal: normal, no tenderness, no distended Integumentary: warm and dry Musculoskeletal: other (no edema) Psychiatric: cooperative - Lab 03/06/19 05:15 03/08/19 05:44 Most recent lab results Calcium 9.5 mg/dL (8.4-10.2) 03/08/19 05:44 Phosphorus 4.30 mg/dL (2.5-4.5) 02/25/19 14:50 48.8 mg/dL (0.1-20.0) H 02/27/19 19:00 Ur Total Protein 24 Hr 1875.00 mg/dL (2-200) H 02/27/19 19:00 112 mmol/L 02/25/19 18:35 75 mg/dL (5-11.8) H 02/27/19 19:00 Medications & Allergies - Medications Allergies/Adverse Reactions: Allergies No Known Allergies Allergy (Verified 02/25/19 14:44) Home Medications: Home Medications Medication Instructions Recorded Confirmed Last Taken Type Aspirin EC 81 mg PO DAILY 10/11/16 02/26/19 02/24/19 History Clopidogrel Bisulfate [Clopidogrel] 75 mg PO DAILY 10/11/16 02/26/19 02/24/19 History Famotidine 40 mg PO BID 10/11/16 02/26/19 02/24/19 History Lovastatin 40 mg PO HS 10/11/16 02/26/19 02/24/19 History Vit D3/Folic Acid/B2/B6/B12 1 each PO DAILY 10/11/16 02/26/19 09/04/17 History [Folgard Tablet] Sodium Bicarbonate 650 mg PO TID 11/11/17 02/26/19 02/24/19 History Ondansetron [Zofran ODT TAB] 4 mg PO Q8HR PRN #14 tab.rapdis 06/09/18 02/26/19 Unknown Rx Furosemide 40 mg PO QDAC 02/25/19 02/26/19 02/24/19 History levETIRAcetam [Keppra TAB] 750 mg PO BID 02/25/19 02/26/19 02/24/19 History Active Medications: Generic Name Dose Route Start Last Admin Trade Name Freq PRN Reason Stop Dose Admin Acetaminophen 650 mg 02/25/19 21:11 Tylenol PO Q4H PRN Pain MILD(1-3)/Fever >100.5/ZIMMERMAN Aspirin 81 mg 02/25/19 22:00 03/08/19 09:15 Halfprin Ec PO 81 mg DAILY DAVID Administration Clopidogrel Bisulfate 75 mg 02/25/19 22:00 03/08/19 09:15 Plavix PO 75 mg DAILY DAVID Administration Famotidine 10 mg 02/25/19 22:00 03/08/19 21:24 Pepcid PO 10 mg BID DAVID Administration Ferrous Sulfate 325 mg 03/07/19 22:00 03/08/19 21:24 Feosol PO 325 mg BID DAVID Administration Furosemide 60 mg 03/03/19 15:00 03/09/19 05:28 Lasix PO 60 mg DAILY@0600 DAVID Administration Heparin Sodium (Porcine) 5,000 unit 02/25/19 22:00 03/08/19 21:24 Heparin SUB-Q 5,000 unit Q12HR DAVID Administration Hydromorphone HCl 0.5 mg 02/25/19 21:11 Dilaudid IV Q3H PRN Pain , Severe (7-10) Sodium Chloride 500 mls @ 50 mls/hr 03/02/19 15:00 Nacl 0.9% 500 Ml IV DIRECT DAVID Levetiracetam 750 mg 02/25/19 22:00 03/08/19 21:24 Keppra PO 750 mg BID DAVID Administration Loperamide HCl 2 mg 03/01/19 14:06 03/01/19 15:10 Imodium PO 2 mg Q2H PRN Administration Diarrhea Ondansetron HCl 4 mg 02/25/19 21:11 Zofran IV Q8H PRN Nausea And Vomiting Oxycodone/Acetaminophen 1 tab 02/25/19 21:11 Percocet 5/325 PO Q6H PRN Pain, Moderate (4-6) Pravastatin Sodium 40 mg 02/25/19 22:00 03/08/19 21:24 Pravachol PO 40 mg QHS DAVID Administration Sodium Chloride 10 ml 02/25/19 22:00 03/08/19 21:25 Sodium Chloride Flush Syringe 10 Ml IV 10 ml BID DAVID Administration Sodium Chloride 10 ml 02/25/19 21:11 Sodium Chloride Flush Syringe 10 Ml IV PRN PRN LINE FLUSH
[2019-03-09] MEDS: HALFPRIN EC PO SCH (09:04)
[2019-03-09] MEDS: PEPCID PO SCH ×2 (09:04→22:17)
[2019-03-09] MEDS: FEOSOL PO SCH ×2 (09:05→22:18)
[2019-03-09] MEDS: HEPARIN SUB-Q SCH ×2 (09:05→22:18)
[2019-03-09] MEDS: SODIUM CHLORIDE FLUSH SYRINGE 10 ML IV SCH ×2 (09:05→22:21)
[2019-03-09] MEDS: PLAVIX PO SCH (09:05)
[2019-03-09] MEDS: KEPPRA PO SCH ×2 (09:05→22:18)
--- NOTE | 2019-03-09 09:05 | Hem/Onc Progress Note ---
Assessment and Plan 1. Anemia, leukopenia and thrombocytopenia. deficiency investigations. MCV is not elevated. Either this could be deficiency or medication related or transient phenomena or this could be myelodysplastic syndrome. We will need to follow the blood count to see the trend. 2. New end-stage renal disease. The patient has been on dialysis. Nephrology is following. 3. Coronary artery disease. 4. History of gastroesophageal reflux disease. 5. History of hyperlipidemia. 6. History of seizure disorder. There is mention of dementia and hypotension in the notes, he has a pacemaker. 03/09 -CKD may have a role in the cytopenia - OP follow up an option - MDS a differential will follow cbc b12 - folate normal - low iron - will follow labs oral iron trial d/w on 03/08 labs for 03/10 - Patient Problems (1) Anemia Current Visit: Yes Status: Acute Qualifiers: Anemia type: due to chronic kidney disease Subjective Date of service: 03/09/19 Objective - Exam Narrative Exam: Pain none General appearance no acute distress Performance status limited self care Eyes EOM intact ENT hearing intact LNs - cervical not palpable Neck normal ROM Respiratory on BIPAP breath sounds CTA CVS S1 S2 + Extremities normal temperature General GI Soft non tender Rectal deferred Male - deferred Skin warm Musculoskeletal generalized weakness Neurologically moves all extremities - Constitutional Vitals: Last Vital Signs Temp 97.6 F 03/09/19 02:00 Pulse 78 03/09/19 07:48 Resp 18 03/09/19 07:48 BP 113/65 03/09/19 07:45 Pulse Ox 97 03/09/19 07:48 Medications & Allergies - Medications Allergies/Adverse Reactions: Allergies No Known Allergies Allergy (Verified 02/25/19 14:44) Home Medications: Home Medications Medication Instructions Recorded Confirmed Last Taken Type Aspirin EC 81 mg PO DAILY 10/11/16 02/26/19 02/24/19 History Clopidogrel Bisulfate [Clopidogrel] 75 mg PO DAILY 10/11/16 02/26/19 02/24/19 History Famotidine 40 mg PO BID 10/11/16 02/26/19 02/24/19 History Lovastatin 40 mg PO HS 10/11/16 02/26/19 02/24/19 History Vit D3/Folic Acid/B2/B6/B12 1 each PO DAILY 10/11/16 02/26/19 09/04/17 History [Folgard Tablet] Sodium Bicarbonate 650 mg PO TID 11/11/17 02/26/19 02/24/19 History Ondansetron [Zofran ODT TAB] 4 mg PO Q8HR PRN #14 tab.rapdis 06/09/18 02/26/19 Unknown Rx Furosemide 40 mg PO QDAC 02/25/19 02/26/19 02/24/19 History levETIRAcetam [Keppra TAB] 750 mg PO BID 02/25/19 02/26/19 02/24/19 History Active Medications: Generic Name Dose Route Start Last Admin Trade Name Freq PRN Reason Stop Dose Admin Acetaminophen 650 mg 02/25/19 21:11 Tylenol PO Q4H PRN Pain MILD(1-3)/Fever >100.5/ZIMMERMAN Aspirin 81 mg 02/25/19 22:00 03/08/19 09:15 Halfprin Ec PO 81 mg DAILY DAVID Administration Clopidogrel Bisulfate 75 mg 02/25/19 22:00 03/08/19 09:15 Plavix PO 75 mg DAILY DAVID Administration Famotidine 10 mg 02/25/19 22:00 03/08/19 21:24 Pepcid PO 10 mg BID DAVID Administration Ferrous Sulfate 325 mg 03/07/19 22:00 03/08/19 21:24 Feosol PO 325 mg BID DAVID Administration Furosemide 60 mg 03/03/19 15:00 03/09/19 05:28 Lasix PO 60 mg DAILY@0600 DAVID Administration Heparin Sodium (Porcine) 5,000 unit 02/25/19 22:00 03/08/19 21:24 Heparin SUB-Q 5,000 unit Q12HR DAVID Administration Hydromorphone HCl 0.5 mg 02/25/19 21:11 Dilaudid IV Q3H PRN Pain , Severe (7-10) Sodium Chloride 500 mls @ 50 mls/hr 03/02/19 15:00 Nacl 0.9% 500 Ml IV DIRECT DAVID Levetiracetam 750 mg 02/25/19 22:00 03/08/19 21:24 Keppra PO 750 mg BID DAVID Administration Loperamide HCl 2 mg 03/01/19 14:06 03/01/19 15:10 Imodium PO 2 mg Q2H PRN Administration Diarrhea Ondansetron HCl 4 mg 02/25/19 21:11 Zofran IV Q8H PRN Nausea And Vomiting Oxycodone/Acetaminophen 1 tab 02/25/19 21:11 Percocet 5/325 PO Q6H PRN Pain, Moderate (4-6) Pravastatin Sodium 40 mg 02/25/19 22:00 03/08/19 21:24 Pravachol PO 40 mg QHS DAVID Administration Sodium Chloride 10 ml 02/25/19 22:00 03/08/19 21:25 Sodium Chloride Flush Syringe 10 Ml IV 10 ml BID DAVID Administration Sodium Chloride 10 ml 02/25/19 21:11 Sodium Chloride Flush Syringe 10 Ml IV PRN PRN LINE FLUSH
[2019-03-09] MEDS ORDERED: PROCRIT IV PRN (09:24)
--- NOTE | 2019-03-09 13:26 | Progress Note ---
Assessment and Plan Assessment and plan: Patient is a 83 yo man with a history of CAD s/p CABG, PPM, hypertension, dementia and childhood sz who presents with worsening renal function from Dr. De's Combat Systems Officer office * Patient's dialysis for better management of improvement of encephalopathy does have occasional waxing and waning mentation in between dialysis. * The pressure medications for lipid prescription due to hypo-tension. * Patient required 500 mL bolus of fluid of 03/05/2019 * Patient received IV iron infusion per Crib Pad Maker recommendation. * Patient is clinically stable for discharge has continued to receive iron infusion which has been changed to oral iron. Is awaiting dialysis chair into the [facility] updated that all [facility] facilities are full so he is being sent out on the dialysis centers. While this is an established patient, discharged and follow with nephrology, cardiology, and oncologist. We'll continue to work on his pancytopenia. New ESRD: HD initiation per Nephrology, permacath placed by vascular Acute metabolic encephalopathy: treat the renal failure, resolved. Hypotension: Resolved, Continue to hold all BP meds at this time CAD: continue plavix GERD: continue pepcid Dyslipidemia: statin Deconditioning: PT recommends home with franko walker Seizure disorder: continue Keppra and monitor closely Pancytopenia- Hematology following, " Either this could be deficiency or medication related or transient phenomena or this could be myelodysplastic syndrome" Patient will follow with hematology outpatient also. Family meeting done, hemodialysis started, case management arranging for dialysis center outpatient. Discontinue zimmerman catheter. PT consulted for deconditioning, Disposition pending outpatient dialysis set up. still awaiting placement Plan discussed with spouse History Interval history: Patient was seen and examined. Follow-up on current diagnosis. sitting up at bedside today, No new complaints, spouse at bedside. Hospitalist Physical - Physical exam Narrative exam: Gen: chronic disability, lethargic, noted improvement, sitting up at bedside today. HEENT: NCAT, EOMI, PERRL, OP Clear Neck: supple, no adenopathy, no thyromegaly, no JVD CVS/Heart: RRR, normal S1S2, pulses present bilaterally Chest/Lungs: CTA B, Symmetrical chest expansion, good air entry bilaterally GI/Abdomen: soft, NTND, good bowel sounds, no guarding or rebound /Bladder: no suprapubic tenderness, no CVA or paraspinal tenderness Extermity/Skin: no c/c/e, no obvious rash MSK: FROM x 4 Neuro: CN 2-12 grossly intact, no new focal deficits Psych: calm - Constitutional Vitals: Temp Pulse Resp BP Pulse Ox 97.6 F 78 18 113/65 97 03/09/19 02:00 03/09/19 07:48 03/09/19 07:48 03/09/19 07:45 03/09/19 07:48 General appearance: Present: well-nourished Results - Labs CBC & Chem 7: 03/06/19 05:15 03/08/19 05:44 Labs: Laboratory Last Values WBC 3.8 K/mm3 (4.5-11.0) L 03/06/19 05:15 RBC 3.42 M/mm3 (3.65-5.03) L 03/06/19 05:15 Hgb 9.6 gm/dl (11.8-15.2) L 03/06/19 05:15 Hct 29.4 % (35.5-45.6) L 03/06/19 05:15 MCV 86 fl (84-94) 03/06/19 05:15 MCH 28 pg (28-32) 03/06/19 05:15 MCHC 33 % (32-34) 03/06/19 05:15 RDW 14.3 % (13.2-15.2) 03/06/19 05:15 Plt Count 115 K/mm3 (140-440) L 03/06/19 05:15 Lymph % (Auto) 33.7 % (13.4-35.0) 03/06/19 05:15 [place] % (Auto) 15.3 % (0.0-7.3) H 03/06/19 05:15 Eos % (Auto) 7.5 % (0.0-4.3) H 03/06/19 05:15 Baso % (Auto) 0.5 % (0.0-1.8) 03/06/19 05:15 Lymph # 1.3 K/mm3 (1.2-5.4) 03/06/19 05:15 [place] # 0.6 K/mm3 (0.0-0.8) 03/06/19 05:15 Eos # 0.3 K/mm3 (0.0-0.4) 03/06/19 05:15 Baso # 0.0 K/mm3 (0.0-0.1) 03/06/19 05:15 Seg Neutrophils % 43.0 % (40.0-70.0) 03/06/19 05:15 Seg Neutrophils # 1.6 K/mm3 (1.8-7.7) L 03/06/19 05:15 PT 13.3 Sec. (12.2-14.9) 02/27/19 10:15 INR 1.04 (0.87-1.13) 02/27/19 10:15 Sodium 135 mmol/L (137-145) L 03/08/19 05:44 Potassium 4.0 mmol/L (3.6-5.0) 03/08/19 05:44 Chloride 94.1 mmol/L (98-107) L 03/08/19 05:44 Carbon Dioxide 24 mmol/L (22-30) 03/08/19 05:44 21 mmol/L 03/08/19 05:44 BUN 61 mg/dL (9-20) H 03/08/19 05:44 5.9 mg/dL (0.8-1.5) H 03/08/19 05:44 Estimated GFR 11 ml/min 03/08/19 05:44 10 % 03/08/19 05:44 Glucose 106 mg/dL (75-100) H 03/08/19 05:44 POC Glucose 182 (70-105) H 02/27/19 10:08 5.4 % (4-6) 02/25/19 21:47 313 Mosm/kg 03/01/19 10:32 7.5 mg/dL (3.5-7.6) 03/01/19 10:32 Calcium 9.5 mg/dL (8.4-10.2) 03/08/19 05:44 Phosphorus 4.30 mg/dL (2.5-4.5) 02/25/19 14:50 Iron 42 ug/dL (49-181) L 02/28/19 12:32 TIBC 192 mcg/dL (250-450) L 02/28/19 12:32 337.9 ng/mL (13.0-400.0) 02/28/19 12:32 0.40 mg/dL (0.1-1.2) 02/26/19 05:55 AST 17 units/L (5-40) 02/26/19 05:55 ALT 7 units/L (7-56) 02/26/19 05:55 49 units/L (35-129) 02/26/19 05:55 0.079 ng/mL (0.00-0.029) H 02/28/19 00:09 NT-Pro-B Natriuret Pep 6375 pg/mL (0-900) H 02/27/19 10:15 7.2 g/dL (6.3-8.2) 02/26/19 05:55 3.7 g/dL (3.9-5) L 02/26/19 05:55 1.1 % 02/26/19 05:55 Triglycerides 39 mg/dL (2-149) 02/27/19 17:00 Cholesterol 121 mg/dL (50-199) 02/27/19 17:00 68 mg/dL (50-130) 02/27/19 17:00 52 mg/dL (40-59) 02/27/19 17:00 2.32 % 02/27/19 17:00 Vitamin B12 316.3 pg/mL (211-911) 02/28/19 12:32 16.17 ng/mL (7.3-26.0) 02/28/19 12:32 Straw (Yellow) 02/25/19 18:35 Clear (Clear) 02/25/19 18:35 7.0 (5.0-7.0) 02/25/19 18:35 Ur Specific [place] 1.008 (1.003-1.030) 02/25/19 18:35 30 mg/dl mg/dL (Negative) 02/25/19 18:35 Neg mg/dL (Negative) 02/25/19 18:35 Neg mg/dL (Negative) 02/25/19 18:35 Neg (Negative) 02/25/19 18:35 Neg (Negative) 02/25/19 18:35 Neg (Negative) 02/25/19 18:35 < 2.0 mg/dL (<2.0) 02/25/19 18:35 Ur Leukocyte Esterase Neg (Negative) 02/25/19 18:35 1.0 /HPF (0.0-6.0) 02/25/19 18:35 1.0 /HPF (0.0-6.0) 02/25/19 18:35 1+ /HPF (Negative) 02/25/19 18:35 2500 ml 02/27/19 19:00 48.8 mg/dL (0.1-20.0) H 02/27/19 19:00 Ur Creatinine 24 Hour 1.2 (0.8-2.8) 02/27/19 19:00 Ur Total Protein 24 Hr 1875.00 mg/dL (2-200) H 02/27/19 19:00 112 mmol/L 02/25/19 18:35 75 mg/dL (5-11.8) H 02/27/19 19:00 Hepatitis A IgM Ab Non-reactive (NonReactive) 03/02/19 11:49 Hep Bs Antigen Non-reactive (Negative) 03/02/19 11:49 Hep B Core IgM Ab Non-reactive (NonReactive) 03/02/19 11:49 Non-reactive (NonReactive) 03/02/19 11:49 Active Medications - Current Medications Current Medications: Generic Name Dose Route Start Last Admin Trade Name Freq PRN Reason Stop Dose Admin Acetaminophen 650 mg 02/25/19 21:11 Tylenol PO Q4H PRN Pain MILD(1-3)/Fever >100.5/ZIMMERMAN Aspirin 81 mg 02/25/19 22:00 03/09/19 09:04 Halfprin Ec PO 81 mg DAILY DAVID Administration Clopidogrel Bisulfate 75 mg 02/25/19 22:00 03/09/19 09:05 Plavix PO 75 mg DAILY DAVID Administration Epoetin Hero 10,000 unit 03/09/19 09:24 Procrit IV LAUREN PRN hemodialysis Famotidine 10 mg 02/25/19 22:00 03/09/19 09:04 Pepcid PO 10 mg BID DAVID Administration Ferrous Sulfate 325 mg 03/07/19 22:00 03/09/19 09:05 Feosol PO 325 mg BID DAVID Administration Furosemide 60 mg 03/03/19 15:00 03/09/19 05:28 Lasix PO 60 mg DAILY@0600 DAVID Administration Heparin Sodium (Porcine) 5,000 unit 02/25/19 22:00 03/09/19 09:05 Heparin SUB-Q 5,000 unit Q12HR DAVID Administration Hydromorphone HCl 0.5 mg 02/25/19 21:11 Dilaudid IV Q3H PRN Pain , Severe (7-10) Sodium Chloride 500 mls @ 50 mls/hr 03/02/19 15:00 Nacl 0.9% 500 Ml IV DIRECT DAVID Levetiracetam 750 mg 02/25/19 22:00 03/09/19 09:05 Keppra PO 750 mg BID DAVID Administration Loperamide HCl 2 mg 03/01/19 14:06 03/01/19 15:10 Imodium PO 2 mg Q2H PRN Administration Diarrhea Ondansetron HCl 4 mg 02/25/19 21:11 Zofran IV Q8H PRN Nausea And Vomiting Oxycodone/Acetaminophen 1 tab 02/25/19 21:11 Percocet 5/325 PO Q6H PRN Pain, Moderate (4-6) Pravastatin Sodium 40 mg 02/25/19 22:00 03/08/19 21:24 Pravachol PO 40 mg QHS DAVID Administration Sodium Chloride 10 ml 02/25/19 22:00 03/09/19 09:05 Sodium Chloride Flush Syringe 10 Ml IV 10 ml BID DAVID Administration Sodium Chloride 10 ml 02/25/19 21:11 Sodium Chloride Flush Syringe 10 Ml IV PRN PRN LINE FLUSH Nutrition/Malnutrition Assess - Dietary Evaluation Nutrition/Malnutrition Findings: Nutrition Notes Start: 02/26/19 0 9:35 Freq: Status: Active Protocol: Document 03/06/19 17:16 RM (Rec: 03/06/19 17:20 RM [id number]) Nutrition Notes Initial or Follow up Reassessment Current Diagnosis Acute Kidney Injury,CKD (stage V CKD),Hypertension Other Pertinent Diagnosis on HD, Dementia, Encephalopathy Current Diet Renal Labs/Tests Reviewed Pertinent Medications Lasix Height 5 ft 11 in Weight 70.1 kg [place] Body Weight (kg) 78.18 BMI 21.5 Subjective/Other Information Pt not in room at time of visit. Recorded PO intake 42% X 3 meals. Tech unsure whether pt has been drinking Nepro. Percent of energy/protein needs met: 52%/39% Burn Absent Trauma Absent #1 Nutrition Diagnosis Malnutrition Diagnosis Progress(for reassessment Continues documentation) Is patient on ventilator? No Is Patient Ambulatory and/or Out of Bed No REE-([facility]-confined to bed) [phone] Calculation Used for Recommendations Kcal/kg Additional Notes Pro needs 1.2-1.4g/k-99g/ day Fluid needs 1-1.5L/day Nutrition Intervention Change Diet Order: Continue Renal Add Supplement/Snack (indicate name/kcal Nepro Vanilla BID /protein ) Provides kCal: 850 Provides Protein (gm) 38 Goal #1 Meet at least 75% of calorie and protein needs via PO and ONS intakes Goal #2 Wt gain/ maintenance Follow-Up By: 02/10/19 Additional Comments Follow for PO and ONS intakes
[2019-03-09] MEDS: PRAVACHOL PO SCH (22:21)
[2019-03-10 05:22] LABS: Basophils % (Auto) 0.5 % (0.0-1.8); Eosinophils # (Auto) 0.3 K/mm3 (0.0-0.4); Eosinophils % (Auto) 7.5 % (0.0-4.3); Hematocrit 27.3 % (35.5-45.6); Hemoglobin 9.1 gm/dl (11.8-15.2); Lymphocytes # (Auto) 1.3 K/mm3 (1.2-5.4); Lymphocytes % (Auto) 29.5 % (13.4-35.0); Mean Corpuscular HGB Conc 33 % (32-34); Mean Corpuscular Volume 86 fl (84-94); Monocytes # (Auto) 0.6 K/mm3 (0.0-0.8); Monocytes % (Auto) 14.2 % (0.0-7.3); Platelet Count 123 K/mm3 (140-440); Red Blood Count 3.18 M/mm3 (3.65-5.03); Red Cell Distribution Width 13.9 % (13.2-15.2)
[2019-03-10] MEDS: LASIX PO SCH (06:56)
--- NOTE | 2019-03-10 08:20 | Hem/Onc Progress Note ---
Assessment and Plan 1. Anemia, leukopenia and thrombocytopenia. deficiency investigations. MCV is not elevated. Either this could be deficiency or medication related or transient phenomena or this could be myelodysplastic syndrome. We will need to follow the blood count to see the trend. 2. New end-stage renal disease. The patient has been on dialysis. Nephrology is following. 3. Coronary artery disease. 4. History of gastroesophageal reflux disease. 5. History of hyperlipidemia. 6. History of seizure disorder. There is mention of dementia and hypotension in the notes, he has a pacemaker. 7/2 -CKD may have a role in the cytopenia - OP follow up an option - MDS a differential will follow cbc b12 - folate normal - low iron - will follow labs oral iron trial d/w on 03/08 pt in HD usually get procrit and IV iron - Patient Problems (1) Anemia Current Visit: Yes Status: Acute Qualifiers: Anemia type: due to chronic kidney disease Subjective Date of service: 03/10/19 Principal diagnosis: anemia Interval history: pt says doing better Objective - Exam Narrative Exam: Pain none General appearance no acute distress Performance status limited self care Eyes EOM intact ENT hearing intact LNs - cervical not palpable Neck normal ROM Respiratory on BIPAP breath sounds CTA CVS S1 S2 + Extremities normal temperature General GI Soft non tender Rectal deferred Male - deferred Skin warm Musculoskeletal generalized weakness Neurologically moves all extremities - Constitutional Vitals: Last Vital Signs Temp 98.4 F 03/10/19 07:17 Pulse 74 03/10/19 07:17 Resp 20 03/10/19 07:17 BP 97/62 03/10/19 07:17 Pulse Ox 96 03/10/19 07:17 - Labs Lab Results: Laboratory Results - last 24 hr 03/10/19 04:43 WBC 4.5 RBC 3.18 L Hgb 9.1 L Hct 27.3 L MCV 86 MCH 28 MCHC 33 RDW 13.9 Plt Count 123 L Lymph % (Auto) 29.5 [place] % (Auto) 14.2 H Eos % (Auto) 7.5 H Baso % (Auto) 0.5 Lymph # 1.3 [place] # 0.6 Eos # 0.3 Baso # 0.0 Seg Neutrophils % 48.3 Seg Neutrophils # 2.2 Medications & Allergies - Medications Allergies/Adverse Reactions: Allergies No Known Allergies Allergy (Verified 02/25/19 14:44) Home Medications: Home Medications Medication Instructions Recorded Confirmed Last Taken Type Aspirin EC 81 mg PO DAILY 10/11/16 02/26/19 02/24/19 History Clopidogrel Bisulfate [Clopidogrel] 75 mg PO DAILY 10/11/16 02/26/19 02/24/19 History Famotidine 40 mg PO BID 10/11/16 02/26/19 02/24/19 History Lovastatin 40 mg PO HS 10/11/16 02/26/19 02/24/19 History Vit D3/Folic Acid/B2/B6/B12 1 each PO DAILY 10/11/16 02/26/19 09/04/17 History [Folgard Tablet] Sodium Bicarbonate 650 mg PO TID 11/11/17 02/26/19 02/24/19 History Ondansetron [Zofran ODT TAB] 4 mg PO Q8HR PRN #14 tab.rapdis 06/09/18 02/26/19 Unknown Rx Furosemide 40 mg PO QDAC 02/25/19 02/26/19 02/24/19 History levETIRAcetam [Keppra TAB] 750 mg PO BID 02/25/19 02/26/19 02/24/19 History Epoetin Hero 10,000 Unit [Procrit] 10,000 unit IV LAUREN PRN #1 vial 03/10/19 Unknown Rx Ferrous Sulfate [Feosol 325 MG tab] 325 mg PO BID #60 tablet 03/10/19 Unknown Rx Active Medications: Generic Name Dose Route Start Last Admin Trade Name Freq PRN Reason Stop Dose Admin Acetaminophen 650 mg 02/25/19 21:11 Tylenol PO Q4H PRN Pain MILD(1-3)/Fever >100.5/ZIMMERMAN Aspirin 81 mg 02/25/19 22:00 03/09/19 09:04 Halfprin Ec PO 81 mg DAILY DAVID Administration Clopidogrel Bisulfate 75 mg 02/25/19 22:00 03/09/19 09:05 Plavix PO 75 mg DAILY DAVID Administration Epoetin Hero 10,000 unit 03/09/19 09:24 Procrit IV LAUREN PRN hemodialysis Famotidine 10 mg 02/25/19 22:00 03/09/19 22:17 Pepcid PO 10 mg BID DAVID Administration Ferrous Sulfate 325 mg 03/07/19 22:00 03/09/19 22:18 Feosol PO 325 mg BID DAVID Administration Furosemide 60 mg 03/03/19 15:00 03/10/19 06:56 Lasix PO 60 mg DAILY@0600 [facility] Administration Heparin Sodium (Porcine) 5,000 unit 02/25/19 22:00 03/09/19 22:18 Heparin SUB-Q 5,000 unit Q12HR DAVID Administration Hydromorphone HCl 0.5 mg 02/25/19 21:11 Dilaudid IV Q3H PRN Pain , Severe (7-10) Sodium Chloride 500 mls @ 50 mls/hr 03/02/19 15:00 Nacl 0.9% 500 Ml IV DIRECT DAVID Levetiracetam 750 mg 02/25/19 22:00 03/09/19 22:18 Keppra PO 750 mg BID DAVID Administration Loperamide HCl 2 mg 03/01/19 14:06 03/01/19 15:10 Imodium PO 2 mg Q2H PRN Administration Diarrhea Ondansetron HCl 4 mg 02/25/19 21:11 Zofran IV Q8H PRN Nausea And Vomiting Oxycodone/Acetaminophen 1 tab 02/25/19 21:11 Percocet 5/325 PO Q6H PRN Pain, Moderate (4-6) Pravastatin Sodium 40 mg 02/25/19 22:00 03/09/19 22:21 Pravachol PO 40 mg QHS DAVID Administration Sodium Chloride 10 ml 02/25/19 22:00 03/09/19 22:21 Sodium Chloride Flush Syringe 10 Ml IV 10 ml BID DAVID Administration Sodium Chloride 10 ml 02/25/19 21:11 Sodium Chloride Flush Syringe 10 Ml IV PRN PRN LINE FLUSH
--- NOTE | 2019-03-10 08:42 | Progress Note ---
Assessment and Plan Impression: * ESRD * Hypertension * Hyperkalemia - resolved * Metabolic acidosis * Monoclonal gammaopathy * Anemia in CKD * CAD * Arrhythmia * Near Syncope Plan: * Continue HD MWF * UF as tolerated * Continue Lasix 60mg daily * Dose medications for renal function * Avoid nephrotoxins * Renal diet * Epogen TIW prn * AM labs * Outpatient dialysis arranged at [facility] at 11am - patient can start tomorrow, March 11 Subjective Date of service: 03/10/19 Principal diagnosis: anemia - low plt Interval history: Patient has no complaints today. Objective - Vital Signs Vital signs: Vital Signs - 12hr 03/09/19 03/09/19 03/10/19 20:49 22:00 02:27 Temperature 97.3 F L Pulse Rate 84 Respiratory 18 20 Rate Blood Pressure 112/69 O2 Sat by Pulse 98 97 Oximetry 03/10/19 03/10/19 02:30 07:17 Temperature 98.4 F Pulse Rate 74 Respiratory 18 20 Rate Blood Pressure 97/62 O2 Sat by Pulse 96 Oximetry - General Appearance General appearance: well-developed, well-nourished EENT: ATNC Respiratory: Present: Clear to Ascultation Cardiology: regular, S1S2 Gastrointestinal: normal, no tenderness, no distended Integumentary: warm and dry Neurologic: alert and oriented x3 Musculoskeletal: other (trace edema) Psychiatric: cooperative - Lab 03/10/19 04:43 03/08/19 05:44 Most recent lab results Calcium 9.5 mg/dL (8.4-10.2) 03/08/19 05:44 Phosphorus 4.30 mg/dL (2.5-4.5) 02/25/19 14:50 48.8 mg/dL (0.1-20.0) H 02/27/19 19:00 Ur Total Protein 24 Hr 1875.00 mg/dL (2-200) H 02/27/19 19:00 112 mmol/L 02/25/19 18:35 75 mg/dL (5-11.8) H 02/27/19 19:00 Medications & Allergies - Medications Allergies/Adverse Reactions: Allergies No Known Allergies Allergy (Verified 02/25/19 14:44) Home Medications: Home Medications Medication Instructions Recorded Confirmed Last Taken Type Aspirin EC 81 mg PO DAILY 02/10/2602/26/19 02/24/19 History Clopidogrel Bisulfate [Clopidogrel] 75 mg PO DAILY 10/11/16 02/26/19 02/24/19 History Famotidine 40 mg PO BID 10/11/16 02/26/19 02/24/19 History Lovastatin 40 mg PO HS 10/11/16 02/26/19 02/24/19 History Vit D3/Folic Acid/B2/B6/B12 1 each PO DAILY 10/11/16 02/26/19 09/04/17 History [Folgard Tablet] Sodium Bicarbonate 650 mg PO TID 11/11/17 02/26/19 02/24/19 History Ondansetron [Zofran ODT TAB] 4 mg PO Q8HR PRN #14 tab.rapdis 06/09/18 02/26/19 Unknown Rx Furosemide 40 mg PO QDAC 02/25/19 02/26/19 02/24/19 History levETIRAcetam [Keppra TAB] 750 mg PO BID 02/25/19 02/26/19 02/24/19 History Active Medications: Generic Name Dose Route Start Last Admin Trade Name Freq PRN Reason Stop Dose Admin Acetaminophen 650 mg 02/25/19 21:11 Tylenol PO Q4H PRN Pain MILD(1-3)/Fever >100.5/ZIMMERMAN Aspirin 81 mg 02/25/19 22:00 03/09/19 09:04 Halfprin Ec PO 81 mg DAILY DAVID Administration Clopidogrel Bisulfate 75 mg 02/25/19 22:00 03/09/19 09:05 Plavix PO 75 mg DAILY DAVID Administration Epoetin Hero 10,000 unit 03/09/19 09:24 Procrit IV LAUREN PRN hemodialysis Famotidine 10 mg 02/25/19 22:00 03/09/19 22:17 Pepcid PO 10 mg BID DAVID Administration Ferrous Sulfate 325 mg 03/07/19 22:00 03/09/19 22:18 Feosol PO 325 mg BID DAVID Administration Furosemide 60 mg 03/03/19 15:00 03/10/19 06:56 Lasix PO 60 mg DAILY@0600 DAVID Administration Heparin Sodium (Porcine) 5,000 unit 02/25/19 22:00 03/09/19 22:18 Heparin SUB-Q 5,000 unit Q12HR DAVID Administration Hydromorphone HCl 0.5 mg 02/25/19 21:11 Dilaudid IV Q3H PRN Pain , Severe (7-10) Sodium Chloride 500 mls @ 50 mls/hr 03/02/19 15:00 Nacl 0.9% 500 Ml IV DIRECT DAVID Levetiracetam 750 mg 02/25/19 22:00 03/09/19 22:18 Keppra PO 750 mg BID DAVID Administration Loperamide HCl 2 mg 03/01/19 14:06 03/01/19 15:10 Imodium PO 2 mg Q2H PRN Administration Diarrhea Ondansetron HCl 4 mg 02/25/19 21:11 Zofran IV Q8H PRN Nausea And Vomiting Oxycodone/Acetaminophen 1 tab 02/25/19 21:11 Percocet 5/325 PO Q6H PRN Pain, Moderate (4-6) Pravastatin Sodium 40 mg 02/25/19 22:00 03/09/19 22:21 Pravachol PO 40 mg QHS DAVID Administration Sodium Chloride 10 ml 02/25/19 22:00 03/09/19 22:21 Sodium Chloride Flush Syringe 10 Ml IV 10 ml BID DAVID Administration Sodium Chloride 10 ml 02/25/19 21:11 Sodium Chloride Flush Syringe 10 Ml IV PRN PRN LINE FLUSH
[2019-03-10] MEDS: HEPARIN SUB-Q SCH (09:13)
[2019-03-10] MEDS: PEPCID PO SCH (09:14)
[2019-03-10] MEDS: FEOSOL PO SCH (09:14)
[2019-03-10] MEDS: KEPPRA PO SCH (09:14)
[2019-03-10] MEDS: PLAVIX PO SCH (09:15)
[2019-03-10] MEDS: HALFPRIN EC PO SCH (09:15)
[2019-03-10] MEDS: SODIUM CHLORIDE FLUSH SYRINGE 10 ML IV SCH (09:17)
--- NOTE | 2019-03-10 11:42 | Discharge Summary ---
Providers - Providers Date of Admission: 02/25/19 17:15 Date of discharge: 03/10/19 Attending physician: CAL GREEN 02/25/19 21:11 Consult to Physician [CONS] Routine Comment: Consulting Provider: JACK COREA Physician Instructions: Reason For Exam: ESRD 02/26/19 17:24 Consult to Physician [CONS] Routine Comment: Consulting Provider: JAYLIN LAZCANO Physician Instructions: Reason For Exam: pancytopenia 03/01/19 13:12 Consult to Physician [CONS] Routine Comment: Consulting Provider: LYNDON FISCHER Physician Instructions: Reason For Exam: HD access 03/04/19 10:58 Physical Therapy Evaluation and Treat [CONS] Routine Comment: Reason For Exam: DIFF AMBULATING 03/08/19 14:02 Occupational Therapy Evaluate and Treat [CONS] Routine Comment: Reason For Exam: evaluation [facility] Condition: Stable Hospital course: Patient is a 83 yo man with a history of CAD s/p CABG, PPM, hypertension, dementia and childhood sz who presented to [facility] ED with worsening renal function from Dr. Corea's [employer] office on 02/25/19. Initially, the covering [employer] wanted to watch the CR, then there were talk of no HD and Hospice but patient and did not want Hospice so I arranged a family meeting with the [employer] on 03/01/19. They wanted to proceed with HD which was started the next day on 03/02/19 after HD access was placed by Dr. Young Discharge Diagnoses: New ESRD: HD initiated on 03/02/19 Acute metabolic encephalopathy: treat the renal failure CAD: continue plavix GERD: continue pepcid Dyslipidemia: statin Seizure disorder: continue Keppra and monitor closely Relative hypotension: adjust bp medications Pancytopenia: to be follow up outpatient with Dr. Lazcano Disposition: DC/TX-06 HOME UNDER HOME [facility] Time spent for discharge: 33 minutes Core Measure Documentation - Palliative Care Palliative Care/ Comfort Measures: Not Applicable - Core Measures Any of the following diagnoses?: none - VTE Discharge Requirements Deep Vein Thrombosis/Pulmonary Embolism Present on Admission: No Has pt received <5 days of overlap therapy or INR<2.0: No Anticoagulant overlap therapy prescribed at discharge: No Contraindication No Overlap Therapy order at DC: Not Indicated Exam - Physical Exam Narrative exam: Gen: chronic disability, lethargic, drowsy but arousable. HEENT: NCAT, EOMI, PERRL, OP Clear Neck: supple, no adenopathy, no thyromegaly, no JVD CVS/Heart: RRR, normal S1S2, pulses present bilaterally Chest/Lungs: CTA B, Symmetrical chest expansion, good air entry bilaterally GI/Abdomen: soft, NTND, good bowel sounds, no guarding or rebound /Bladder: no suprapubic tenderness, no CVA or paraspinal tenderness Extermity/Skin: no c/c/e, no obvious rash MSK: FROM x 4 Neuro: CN 2-12 grossly intact, no new focal deficits Psych: calm - Constitutional Vitals: Temp Pulse Resp BP Pulse Ox 98.4 F 74 20 97/62 96 03/10/19 07:17 03/10/19 07:17 03/10/19 07:17 03/10/19 07:17 03/10/19 07:17 Plan Activity: other (no strenous activities unless cleared by PCP) Diet: renal Special Instructions: record daily BP diary Follow up with: JAYLIN LAZCANO MD [Staff Physician] - 7 Days [place] KEATON MARTÍNEZ MD [Primary Care Provider] - 3-5 Days JACK COREA MD [Staff Physician] - 7 Days
[2019-03-10 13:20] VITALS: BP 113/63
== END 2019-03-10 19:09 | disposition home health service (06) | DRG 673 ==
LOC: ED 14:42 → 4A 17:15 → 2B-ACE 03-05 18:47
PROVIDERS: ADMIT Internal Medicine; ATTEND Internal Medicine
PROC: 02HV33Z Insertion of Infusion Device into Superior Vena Cava, Percutaneous Approach (ICD-10-PCS; principal; 2019-03-02)
PROC: B548ZZA Ultrasonography of Superior Vena Cava, Guidance (ICD-10-PCS; 2019-03-02)
PROC: B5181ZA Fluoroscopy of Superior Vena Cava using Low Osmolar Contrast, Guidance (ICD-10-PCS; 2019-03-02)
PROC: 5A1D70Z Performance of Urinary Filtration, Intermittent, Less than 6 Hours Per Day (ICD-10-PCS; 2019-03-02)
PROC: 0JH63XZ Insertion of Tunneled Vascular Access Device into Chest Subcutaneous Tissue and Fascia, Percutaneous Approach (ICD-10-PCS; 2019-03-02)
PROC: 5A1D70Z Performance of Urinary Filtration, Intermittent, Less than 6 Hours Per Day (ICD-10-PCS; 2019-03-04)
PROC: 5A1D70Z Performance of Urinary Filtration, Intermittent, Less than 6 Hours Per Day (ICD-10-PCS; 2019-03-06)
PROC: 5A1D70Z Performance of Urinary Filtration, Intermittent, Less than 6 Hours Per Day (ICD-10-PCS; 2019-03-09)
DX: N17.9 Acute kidney failure, unspecified (principal); G93.41 Metabolic encephalopathy; E87.2 Acidosis; D61.818 Other pancytopenia; I12.0 Hypertensive chronic kidney disease with stage 5 chronic kidney disease or end stage renal disease; I95.9 Hypotension, unspecified; N18.6 End stage renal disease; I25.10 Atherosclerotic heart disease of native coronary artery without angina pectoris; F03.90 Unspecified dementia, unspecified severity, without behavioral disturbance, psychotic disturbance, mood disturbance, and anxiety; K21.9 Gastro-esophageal reflux disease without esophagitis; E78.5 Hyperlipidemia, unspecified; G40.909 Epilepsy, unspecified, not intractable, without status epilepticus; D72.819 Decreased white blood cell count, unspecified; D69.6 Thrombocytopenia, unspecified; D47.2 Monoclonal gammopathy; D63.1 Anemia in chronic kidney disease; R55 Syncope and collapse; I49.9 Cardiac arrhythmia, unspecified; Z95.1 Presence of aortocoronary bypass graft; Z95.0 Presence of cardiac pacemaker; Z82.49 Family history of ischemic heart disease and other diseases of the circulatory system
CPT/HCPCS: 36415; 36558; 71045; 76770; 76937; 77001; 80048; 80053; 80061; 80074; 81001; 82570; 82607; 82728; 82747; 82962; 83036; 83550; 83880; 83930; 84100; 84156; 84300; 84484; 84550; 85025; 85027; 85610; 93005; 93010; 96372; 99285; G0378; A9270-GY; C1750; J0690; J0885; J1644; J1940; J2250; J3010; J7030; J7040

== ENCOUNTER 2019-04-10 08:35 | Inpatient (IN) | payer MEDICARE ==
--- NOTE | 2019-04-10 09:01 | Emergency Department Report ---
HPI - General Time Seen by Provider: 04/10/19 08:37 - HPI HPI: Room 19 The patient is an 83-year-old male presenting with chief complaint of altered mental status. Per EMS the patient had an episode of "altered mental status" last night according to the . The patient presented to the hemodialysis center this morning in his usual state of health. EMS reports patient then became altered. The patient appears hyper worship and will not answer questions. Patient makes frequent references to Harshil. Patient does not make eye contact or follow commands Location: [See above] Duration: [See above] Quality: [See above] Severity: [See above] Modifying factors: [see above] Context: [see above] Mode of transportation: [not driving] ED Past Medical Hx - Past Medical History Hx Hypertension: Yes Hx Renal Disease: Yes (ESRD) Hx Seizures: Yes - Surgical History Hx Open Heart Surgery: Yes Hx Pacemaker: Yes - Family History Family history: no significant - Social History Smoking Status: Unknown if ever smoked - Medications Home Medications: Home Medications Medication Instructions Recorded Confirmed Last Taken Type Aspirin EC 81 mg PO DAILY 10/11/16 02/26/19 02/24/19 History Clopidogrel Bisulfate [Clopidogrel] 75 mg PO DAILY 10/11/16 02/26/19 02/24/19 History Famotidine 40 mg PO BID 10/11/16 02/26/19 02/24/19 History Lovastatin 40 mg PO HS 10/11/16 02/26/19 02/24/19 History Vit D3/Folic Acid/B2/B6/B12 1 each PO DAILY 10/11/16 02/26/19 09/04/17 History [Folgard Tablet] Sodium Bicarbonate 650 mg PO TID 11/11/17 02/26/19 02/24/19 History Ondansetron [Zofran ODT TAB] 4 mg PO Q8HR PRN #14 tab.rapdis 06/09/18 02/26/19 Unknown Rx Furosemide 40 mg PO QDAC 02/25/19 02/26/19 02/24/19 History levETIRAcetam [Keppra TAB] 750 mg PO BID 02/25/19 02/26/19 02/24/19 History Epoetin Hero 10,000 Unit [Procrit] 10,000 unit IV LAUREN PRN #1 vial 03/10/19 Unknown Rx Ferrous Sulfate [Feosol 325 MG tab] 325 mg PO BID #60 tablet 03/10/19 Unknown Rx ED Review of Systems ROS: Stated complaint: AMS Other details as noted in HPI Comment: Unobtainable due to pts medical conditions Physical Exam - Physical Exam Vital Signs: Vital Signs 04/10/19 04/10/19 09:16 10:07 Temperature 96.8 F L Pulse Rate 104 H Respiratory 18 Rate Blood Pressure 132/89 O2 Sat by Pulse 97 Oximetry Physical Exam: GENERAL: The patient is well-developed well-nourished male lying on stretcher not appearing to be in acute distress. Patient appears to be praying and looking up into the cristal HEENT: Normocephalic. Atraumatic. Extraocular motions are intact. Patient has moist mucous membranes. NECK: Supple. Trachea midline CHEST/LUNGS: Clear to auscultation. There is no respiratory distress noted. HEART/CARDIOVASCULAR: Regular. There is no tachycardia. There is no gallop rub or murmur. ABDOMEN: Abdomen is soft, nontender. Patient has normal bowel sounds. There is no abdominal distention. SKIN: There is no rash. There is no edema. There is no diaphoresis. NEURO: The patient is awake and alert. The patient is not cooperative cooperative with neurologic exam. The patient has normal speech MUSCULOSKELETAL: T There is no evidence of acute injury. ED Medical Decision Making - Lab Data Result diagrams: 04/10/19 09:01 04/10/19 09:01 Laboratory Tests 04/10/19 04/10/19 04/10/19 08:46 09:01 09:01 WBC 3.4 L RBC 3.56 L Hgb 10.3 L Hct 32.1 L MCV 90 MCH 29 MCHC 32 RDW 17.0 H Plt Count 167 Lymph % (Auto) 37.2 H Hardin % (Auto) 14.6 H Eos % (Auto) 9.0 H Baso % (Auto) 0.6 Lymph # 1.3 Hardin # 0.5 Eos # 0.3 Baso # 0.0 Seg Neutrophils % 38.6 L Seg Neutrophils # 1.3 L PT 13.8 INR 1.09 APTT 104.0 H* VBG pH Sodium Potassium Chloride Carbon Dioxide Anion Gap BUN Creatinine Estimated GFR BUN/Creatinine Ratio Glucose POC Glucose 177 H Calcium Total Bilirubin AST ALT Alkaline Phosphatase Ammonia Total Creatine Kinase CK-MB (CK-2) CK-MB (CK-2) Rel Index Troponin T Total Protein Albumin Albumin/Globulin Ratio Lipase TSH Free T4 04/10/19 04/10/19 04/10/19 09:01 09:01 09:01 WBC RBC Hgb Hct MCV MCH MCHC RDW Plt Count Lymph % (Auto) Hardin % (Auto) Eos % (Auto) Baso % (Auto) Lymph # Hardin # Eos # Baso # Seg Neutrophils % Seg Neutrophils # PT INR APTT VBG pH Sodium 137 Potassium 3.0 L Chloride 95.3 L Carbon Dioxide 23 Anion Gap 22 BUN 24 H Creatinine 4.6 H Estimated GFR 15 BUN/Creatinine Ratio 5 Glucose 142 H POC Glucose Calcium 10.3 H Total Bilirubin 0.50 AST 25 ALT 11 Alkaline Phosphatase 64 Ammonia 15.0 L Total Creatine Kinase 541 H CK-MB (CK-2) 3.4 CK-MB (CK-2) Rel Index 0.6 Troponin T 0.111 H* Total Protein 7.5 Albumin 4.0 Albumin/Globulin Ratio 1.1 Lipase 17 TSH 1.580 Free T4 1.49 H 04/10/19 09:01 WBC RBC Hgb Hct MCV MCH MCHC RDW Plt Count Lymph % (Auto) Hardin % (Auto) Eos % (Auto) Baso % (Auto) Lymph # Hardin # Eos # Baso # Seg Neutrophils % Seg Neutrophils # PT INR APTT VBG pH 7.547 H Sodium Potassium Chloride Carbon Dioxide Anion Gap BUN Creatinine Estimated GFR BUN/Creatinine Ratio Glucose POC Glucose Calcium Total Bilirubin AST ALT Alkaline Phosphatase Ammonia Total Creatine Kinase CK-MB (CK-2) CK-MB (CK-2) Rel Index Troponin T Total Protein Albumin Albumin/Globulin Ratio Lipase TSH Free T4 - EKG Data -: EKG Interpreted by Me Rate: normal - EKG Data When compared to previous EKG there are: previous EKG unavailable Interpretation: other (ventricular paced rhythm) - Radiology Data Radiology results: report reviewed (CT head), image reviewed (CT head) [facility] [address] [place] [address] Cat Scan Report Signed Patient: KUN YING MR#: [id number] : 1935 Acct:[id number] Age/Sex: 83 / M ADM Date: 04/10/19 Loc: ED Attending Dr: Ordering Physician: PRICILA GRIFFITH MD Date of Service: 04/10/19 Procedure(s): CT head/brain wo con Accession Number(s): [id number] cc: PRICILA GRIFFITH MD CT HEAD WITHOUT CONTRAST INDICATION / CLINICAL INFORMATION: altered mental status. TECHNIQUE: Axial imaging performed from the skull apex through the skull base without the use of contrast. All CT scans at this location are performed using CT dose reduction for ALARA by means of automated exposure control. COMPARISON: 10/29/2018. 11/23/2017. FINDINGS: CEREBRAL PARENCHYMA: Mild diffuse cortical volume loss and mild chronic ischemic changes in the white matter are unchanged. No acute parenchymal abnormality or chronic infarct. Sellar mass is unchanged over multiple previous exams. HEMORRHAGE: None. EXTRA-AXIAL SPACES: Normal in size and morphology for the patient's age. VENTRICULAR SYSTEM: Normal in size and morphology for the patient's age. MIDLINE SHIFT OR HERNIATION: None. CEREBELLUM / BRAINSTEM: A 9.8 mm right cerebellopontine angle mass is identified with widening of the right internal auditory canal. In retrospect this is identified on previous exams. This is suggestive of an acoustic neuroma. The remaining posterior fossa contents are unremarkable. CALVARIUM: No significant abnormality. ORBITS: Normal as visualized. PARANASAL SINUSES / MASTOID AIR CELLS: Normal as visualized. SOFT TISSUES of HEAD: No significant abnormality. ADDITIONAL FINDINGS: None. IMPRESSION: No acute intracranial abnormality. Mild diffuse volume loss and chronic white matter changes. Stable sellar mass. 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 Signer Name: John Hernandez Jr, MD Signed: 04/10/2019 9:10 AM Workstation Name: [id number] Transcribed By: TTR Dictated By: JOHN HERNANDEZ JR, MD Electronically Authenticated By: JOHN HERNANDEZ JR, MD Signed Date/Time: 04/10/19909 DD/ 4 TD/TT: - Differential Diagnosis altered mental status Critical care attestation.: If time is entered above; I have spent that time in minutes in the direct care of this critically ill patient, excluding procedure time. ED Disposition Clinical Impression: Altered mental status, End stage renal disease Disposition: OP ADMIT IP TO THIS HOSP Is pt being admited?: Yes Does the pt Need Aspirin: Yes Condition: Fair Referrals: KEATON COLBERT MD [Primary Care Provider] - 3-5 Days Time of Disposition: 10:09 (hospitalist paged)
--- NOTE | 2019-04-10 09:14 | Cat Scan Report ---
CT HEAD WITHOUT CONTRAST INDICATION / CLINICAL INFORMATION: altered mental status. TECHNIQUE: Axial imaging performed from the skull apex through the skull base without the use of cont rast. All CT scans at this location are performed using CT dose reduction for ALARA by means of auto mated exposure control. COMPARISON: 10/29/2018. 11/23/2017. FINDINGS: CEREBRAL PARENCHYMA: Mild diffuse cortical volume loss and mild chronic ischemic changes in the white matter are unchanged. No acute parenchymal abnormality or chronic infarct. Sellar mass is unchanged over multiple previous exams. HEMORRHAGE: None. EXTRA-AXIAL SPACES: Normal in size and morphology for the patient's age. VENTRICULAR SYSTEM: Normal in size and morphology for the patient's age. MIDLINE SHIFT OR HERNIATION: None. CEREBELLUM / BRAINSTEM: A 9.8 mm right cerebellopontine angle mass is identified with widening of the right internal auditory canal. In retrospect this is identified on previous exams. This is suggestiv e of an acoustic neuroma. The remaining posterior fossa contents are unremarkable. CALVARIUM: No significant abnormality. ORBITS: Normal as visualized. PARANASAL SINUSES / MASTOID AIR CELLS: Normal as visualized. SOFT TISSUES of HEAD: No significant abnormality. ADDITIONAL FINDINGS: None. IMPRESSION: No acute intracranial abnormality. Mild diffuse volume loss and chronic white matter changes. Stable sellar mass. 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 Signer Name: John Hernandez Jr, MD Signed: 04/10/2019 9:10 AM Workstation Name: [id number]
[2019-04-10 09:44] LABS: Creatine Kinase MB 3.4 ng/mL (0.0-4.0)
[2019-04-10 09:46] LABS: Calcium 10.3 mg/dL (8.4-10.2)
[2019-04-10 09:55] LABS: Basophils % (Auto) 0.6 % (0.0-1.8); Eosinophils # (Auto) 0.3 K/mm3 (0.0-0.4); Hematocrit 32.1 % (35.5-45.6); Hemoglobin 10.3 gm/dl (11.8-15.2); Lymphocytes # (Auto) 1.3 K/mm3 (1.2-5.4); Lymphocytes % (Auto) 37.2 % (13.4-35.0); Mean Corpuscular HGB Conc 32 % (32-34); Mean Corpuscular Volume 90 fl (84-94); Monocytes # (Auto) 0.5 K/mm3 (0.0-0.8); Monocytes % (Auto) 14.6 % (0.0-7.3); Platelet Count 167 K/mm3 (140-440); Red Blood Count 3.56 M/mm3 (3.65-5.03)
[2019-04-10 10:01] LABS: INR 1.09 (0.87-1.13)
[2019-04-10 10:08] LABS: Free T4 (Free Thyroxine) 1.49 ng/dL (0.76-1.46)
[2019-04-10] MEDS ORDERED: ASPIRIN PO ONE (10:09)
[2019-04-10 10:11] LABS: Chol/HDL Ratio 1.96 %
[2019-04-10] MEDS ORDERED: SODIUM CHLORIDE FLUSH SYRINGE 10 ML IV PRN (11:53)
[2019-04-10] MEDS ORDERED: NORCO 5/325 PO PRN (11:53)
[2019-04-10] MEDS ORDERED: K-DUR PO ONE ×2 (12:00→13:15)
[2019-04-10] MEDS ORDERED: PLAVIX ONE (13:15)
[2019-04-10] MEDS ORDERED: ASPIRIN ONE (13:15)
[2019-04-10] MEDS: PLAVIX PO SCH (13:16)
[2019-04-10] MEDS ORDERED: APRESOLINE ONE (13:16)
[2019-04-10] MEDS: APRESOLINE PO SCH ×2 (13:16→22:05)
[2019-04-10] MEDS: SODIUM BICARBONATE PO SCH ×2 (14:27→20:43)
--- NOTE | 2019-04-10 15:31 | History and Physical Report ---
History of Present Illness Date of examination: 04/10/19 Date of admission: 04/10/19 10:11 Chief complaint: Altered mental status per the History of present illness: Patient is a 83-year-old -[place] male with history of ESRD on HD and dementia who was brought to the ED from the dialysis center on account of altered mental status. Of note, history was obtained from both the patient and the who was at the bedside. The stated that about 4 days ago, the pt started having some hallucinations and speaking incoherently, which subsequently improved. However, at the dialysis Center today, he started speaking incoherently again, so he was sent to the ED for further evaluation. The also reported that at the dialysis center, his blood glucose was noted to be low at 48. Pt had lower abdominal pain yesterday, which has resolved. No nausea, vomiting or diarrhea. No reported poor oral intake. Pt denied chest pain, shortness of breath, fever, chills, headaches, falls, syncope or loss of consciousness. Past History Past Medical History: CAD, dialysis, ESRD, heart failure, hypertension, hyper lipidemia, other (dementia) Past Surgical History: CABG, Other (dialysis catheter placement, pacemaker placement) Social history: no significant social history (patient denies tobacco, alcohol or illicit drug use) Family history: other (no known family history of hypertension, diabetes or heart disease) Medications and Allergies Allergies Allergy/AdvReac Type Severity Reaction Status Date / Time No Known Allergies Allergy Verified 02/25/19 14:44 Home Medications Medication Instructions Recorded Confirmed Last Taken Type Aspirin EC 81 mg PO DAILY 10/11/16 04/10/19 04/09/19 History Clopidogrel Bisulfate [Clopidogrel] 75 mg PO DAILY 10/11/16 04/10/19 04/09/19 History Famotidine 40 mg PO BID 10/11/16 04/10/19 04/09/19 History Lovastatin 40 mg PO QHS 10/11/16 04/10/19 04/09/19 History Vit D3/Folic Acid/B2/B6/B12 1 each PO DAILY 10/11/16 04/10/19 04/09/19 History [Folgard Tablet] Furosemide [Lasix TAB] 40 mg PO QDAC 04/10/19 04/10/19 04/09/19 History Sodium Bicarbonate 650 mg PO TID 04/10/19 04/10/19 04/09/19 History hydrALAZINE [Apresoline TAB] 50 mg PO QAM&QHS 04/10/19 04/10/19 04/09/19 History levETIRAcetam [Keppra TAB] 750 mg PO BID 04/10/19 04/10/19 04/09/19 History Active Meds: Active Medications Acetaminophen (Tylenol) 650 mg PO Q6H PRN PRN Reason: Pain MILD(1-3)/Fever >100.5/ZIMMERMAN Acetaminophen/Hydrocodone Bitart ([place] 5/325) 2 each PO Q6H PRN PRN Reason: Pain, Moderate (4-6) Aspirin (Halfprin Ec) 81 mg PO DAILY [facility] Clopidogrel Bisulfate (Plavix) 75 mg PO DAILY [facility] Last Admin: 04/10/19 13:16 Dose: 75 mg Documented by: Famotidine (Pepcid) 40 mg PO BID [facility] Furosemide (Lasix) 40 mg PO QDAC [facility] Hydralazine HCl (Apresoline) 50 mg PO BID [facility] Last Admin: 04/10/19 13:16 Dose: 50 mg Documented by: Levetiracetam (Keppra) 750 mg PO BID [facility] Multivit/Ca Carb/B Cmplx/FA/Prenat (Renal Caps) 1 cap PO QDAY [facility] Ondansetron HCl (Zofran) 4 mg IV Q8H PRN PRN Reason: Nausea And Vomiting Pravastatin Sodium (Pravachol) 40 mg PO QHS [facility] Sodium Bicarbonate (Sodium Bicarbonate) 650 mg PO TID [facility] Last Admin: 04/10/19 14:27 Dose: 650 mg Documented by: Sodium Chloride (Sodium Chloride Flush Syringe 10 Ml) 10 ml IV BID [facility] Sodium Chloride (Sodium Chloride Flush Syringe 10 Ml) 10 ml IV PRN PRN PRN Reason: LINE FLUSH Review of Systems All systems: negative (except as documented in the HPI, 14 systems reviewed with the patient were negative) Exam - Constitutional Vitals: Temp Pulse Resp BP Pulse Ox 96.8 F L 104 H 18 132/89 97 04/10/19 10:07 04/10/19 09:16 04/10/19 09:16 04/10/19 09:16 04/10/19 09:16 General appearance: Present: no acute distress, other (permcath noted on RT chest) - EENT Eyes: Present: PERRL ENT: hearing intact, clear oral mucosa - Neck Neck: Present: supple, normal ROM - Respiratory Respiratory effort: normal Respiratory: bilateral: CTA - Cardiovascular Rhythm: regular Heart Sounds: Present: S1 & S2. Absent: rub, click - Extremities Extremities: pulses symmetrical, No edema - Abdominal General gastrointestinal: Present: soft, non-tender, non-distended, normal bowel sounds Male genitourinary: Present: deferred - Integumentary Integumentary: Present: clear, warm, dry - Musculoskeletal Musculoskeletal: gait normal, strength equal bilaterally - Psychiatric Psychiatric: appropriate mood/affect - Neurologic Neurologic: moves all extremities Results - Labs CBC & Chem 7: 04/10/19 09:01 04/10/19 09:01 Labs: Laboratory Last Values WBC 3.4 K/mm3 (4.5-11.0) L 04/10/19 09: RBC 3.56 M/mm3 (3.65-5.03) L 04/10/19 09: Hgb 10.3 gm/dl (11.8-15.2) L 04/10/19 09:01 Hct 32.1 % (35.5-45.6) L 04/10/19 09: MCV 90 fl (84-94) 04/10/19 09:01 MCH 29 pg (28-32) 04/10/19 09:01 MCHC 32 % (32-34) 04/10/19 09:01 RDW 17.0 % (13.2-15.2) H 04/10/19 09:01 Plt Count 167 K/mm3 (140-440) 04/10/19 09:01 Lymph % (Auto) 37.2 % (13.4-35.0) H 04/10/19 09:01 [place] % (Auto) 14.6 % (0.0-7.3) H 04/10/19 09:01 Eos % (Auto) 9.0 % (0.0-4.3) H 04/10/19 09:01 Baso % (Auto) 0.6 % (0.0-1.8) 04/10/19 09:01 Lymph # 1.3 K/mm3 (1.2-5.4) 04/10/19 09:01 [place] # 0.5 K/mm3 (0.0-0.8) 04/10/19 09:01 Eos # 0.3 K/mm3 (0.0-0.4) 04/10/19 09:01 Baso # 0.0 K/mm3 (0.0-0.1) 04/10/19 09:01 Seg Neutrophils % 38.6 % (40.0-70.0) L 04/10/19 09:01 Seg Neutrophils # 1.3 K/mm3 (1.8-7.7) L 04/10/19 09:01 PT 13.8 Sec. (12.2-14.9) 04/10/19 09:01 INR 1.09 (0.87-1.13) 04/10/19 09:01 APTT 104.0 Sec. (24.2-36.6) H* 04/10/19 09:01 VBG pH 7.547 (7.320-7.420) H 04/10/19 09:01 Sodium 137 mmol/L (137-145) 04/10/19 09:01 Potassium 3.0 mmol/L (3.6-5.0) L 04/10/19 09:01 Chloride 95.3 mmol/L (98-107) L 04/10/19 09:01 Carbon Dioxide 23 mmol/L (22-30) 04/10/19 09:01 22 mmol/L 04/10/19 09:01 BUN 24 mg/dL (9-20) H 04/10/19 09:01 4.6 mg/dL (0.8-1.5) H 04/10/19 09:01 Estimated GFR 15 ml/min 04/10/19 09:01 5 % 04/10/19 09:01 Glucose 142 mg/dL (75-100) H 04/10/19 09:01 POC Glucose 177 (70-105) H 04/10/19 08:46 Calcium 10.3 mg/dL (8.4-10.2) H 04/10/19 09:01 0.50 mg/dL (0.1-1.2) 04/10/19 09:01 AST 25 units/L (5-40) 04/10/19 09:01 ALT 11 units/L (7-56) 08/02/19 09:01 64 units/L (35-129) 04/10/19 09:01 15.0 umol/L (25-60) L 04/10/19 09:01 541 units/L (55-170) H 04/10/19 09:01 CK-MB (CK-2) 3.4 ng/mL (0.0-4.0) 04/10/19 09:01 CK-MB (CK-2) Rel Index 0.6 (0-4) 04/10/19 09:01 0.112 ng/mL (0.00-0.029) H* 04/10/19 14:14 7.5 g/dL (6.3-8.2) 04/10/19 09:01 4.0 g/dL (3.9-5) 04/10/19 09:01 1.1 % 04/10/19 09:01 Triglycerides 44 mg/dL (2-149) 04/10/19 09: Cholesterol 128 mg/dL (50-199) 04/10/19 09:01 66 mg/dL (50-130) 04/10/19 09:01 65 mg/dL (40-59) H 04/10/19 09:01 1.96 % 04/10/19 09:01 17 units/L (13-60) 04/10/19 09:01 TSH 1.580 mlU/mL (0.270-4.200) 04/10/19 09:01 Free T4 1.49 ng/dL (0.76-1.46) H 04/10/19 09:01 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 -We'll continue to monitor clinically Chronic troponin elevation -Patient denies acute chest pain or sob -We'll continue serial troponin level monitoring -Last echo was in 11/24 which showed EF of 45-50% with moderate mitral regurgitation, will repeat Hypokalemia -Repleted, we'll monitor level -We will check magnesium level Abnormal thyroid function test -For repeat on outpatient Chronic diastolic HF with EF of 45-50% -No acute exacerbation -Continue home Lasix, coreg added CAD -Stable -We'll continue home medications, Plavix and aspirin ESRD on HD -Nephrology consulted Hypertension -Stable -We'll resume home Hydralazine HLD -Continue statin Dementia -No current behavioral disturbances, will monitor DVT prophylaxis with heparin Time spent: 38 minutes
--- NOTE | 2019-04-10 17:14 | XRay Report ---
CHEST 1 VIEW INDICATION / CLINICAL INFORMATION: Altered mental status. COMPARISON: 02/25/2019 chest radiograph FINDINGS: SUPPORT DEVICES: Unchanged pacemaker. Interval placement of right IJ PermCath with tips projecting ov er the atriocaval junction HEART / MEDIASTINUM: Cardiac mediastinal silhouette is similar. LUNGS / PLEURA: Dense left retrocardiac opacity is present. The left costophrenic sulcus and left hem idiaphragm are obscured. The right lung is clear. No pneumothorax. ADDITIONAL FINDINGS: No significant additional findings. IMPRESSION: 1. Small to moderate left pleural effusion. 2. Left basilar atelectasis. Superimposed infection is not excluded. Signer Name: Justin Suarez MD Signed: 04/10/2019 5:09 PM Workstation Name: [id number]
[2019-04-10] MEDS ORDERED: COREG PO SCH (22:00)
[2019-04-10] MEDS ORDERED: NON-FORMULARY (Lovastatin [Lovastatin] 40 MG) PO SCH (22:00)
[2019-04-10] MEDS: KEPPRA PO SCH (22:01)
[2019-04-10] MEDS: PEPCID PO SCH (22:02)
[2019-04-10] MEDS: PRAVACHOL PO SCH (22:03)
[2019-04-10] MEDS: HEPARIN SUB-Q SCH (22:03)
[2019-04-10] MEDS: SODIUM CHLORIDE FLUSH SYRINGE 10 ML IV SCH (22:08)
[2019-04-11 05:57] LABS: Hematocrit 27.8 % (35.5-45.6); Hemoglobin 9.3 gm/dl (11.8-15.2); Mean Corpuscular HGB Conc 34 % (32-34); Mean Corpuscular Volume 87 fl (84-94); Platelet Count 150 K/mm3 (140-440); Red Blood Count 3.21 M/mm3 (3.65-5.03); Red Cell Distribution Width 16.2 % (13.2-15.2)
--- NOTE | 2019-04-11 06:00 | Consultation ---
History of Present Illness - Reason for Consult Consult date: 04/10/19 end stage renal disease - History of Present Illness Mr. Dove is an 83yo with ESRD on HD MWF who presented to the ED w/ AMS. Per , patient was reportedly in usual state of health until appx 7-8pm yesterday. Per , patient became agitated, praying loudly. 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 She reports no hx of fever, nausea, vomiting. She reports that patient had an episode of urinary incontinence which is atypical. Upon arrival to the dialysis clinic, patient was calm. However, during assessment, patient would not respond to questions and began praying loudly. Glucose was checked and was 48. 1 amp D50 administered. EMS was called and patient was returned to diaysis. Past History Past Medical History: CAD, dialysis, ESRD, heart failure, hypertension, hyperlipidemia, other (dementia) Past Surgical History: CABG, Other (dialysis catheter placement, pacemaker placement) Social history: no significant social history (patient denies tobacco, alcohol or illicit drug use) Family history: other (no known family history of hypertension, diabetes or heart disease) Medications and Allergies Allergies Allergy/AdvReac Type Severity Reaction Status Date / Time No Known Allergies Allergy Verified 02/25/19 14:44 Home Medications Medication Instructions Recorded Confirmed Last Taken Type Aspirin EC 81 mg PO DAILY 10/11/16 04/10/19 04/09/19 History Clopidogrel Bisulfate [Clopidogrel] 75 mg PO DAILY 10/11/16 04/10/19 04/09/19 History Famotidine 40 mg PO BID 10/11/16 04/10/19 04/09/19 History Lovastatin 40 mg PO QHS 10/11/16 04/10/19 04/09/19 History Vit D3/Folic Acid/B2/B6/B12 1 each PO DAILY 10/11/16 04/10/19 04/09/19 History [Folgard Tablet] Furosemide [Lasix TAB] 40 mg PO QDAC 04/10/19 04/10/19 04/09/19 History Sodium Bicarbonate 650 mg PO TID 04/10/19 04/10/19 04/09/19 History hydrALAZINE [Apresoline TAB] 50 mg PO QAM&QHS 04/10/19 04/10/19 04/09/19 History levETIRAcetam [Keppra TAB] 750 mg PO BID 04/10/19 04/10/19 04/09/19 History Active Meds: Active Medications Acetaminophen (Tylenol) 650 mg PO Q6H PRN PRN Reason: Pain MILD(1-3)/Fever >100.5/ZIMMERMAN Acetaminophen/Hydrocodone Bitart ([place] 5/325) 2 each PO Q6H PRN PRN Reason: Pain, Moderate (4-6) Aspirin (Halfprin Ec) 81 mg PO DAILY [facility] Carvedilol (Coreg) 12.5 mg PO BID [facility] Last Admin: 04/10/19 22:05 Dose: 12.5 mg Documented by: Clopidogrel Bisulfate (Plavix) 75 mg PO DAILY [facility] Last Admin: 04/10/19 13:16 Dose: 75 mg Documented by: Famotidine (Pepcid) 40 mg PO BID [facility] Last Admin: 04/10/19 22:02 Dose: 40 mg Documented by: Furosemide (Lasix) 40 mg PO QDAC [facility] Heparin Sodium (Porcine) (Heparin) 5,000 unit SUB-Q Q12HR [facility] Last Admin: 04/10/19 22:03 Dose: 5,000 unit Documented by: Hydralazine HCl (Apresoline) 50 mg PO BID [facility] Last Admin: 04/10/19 22:05 Dose: 50 mg Documented by: Levetiracetam (Keppra) 750 mg PO BID [facility] Last Admin: 04/10/19 22:01 Dose: 750 mg Documented by: Multivit/Ca Carb/B Cmplx/FA/Prenat (Renal Caps) 1 cap PO QDAY [facility] Ondansetron HCl (Zofran) 4 mg IV Q8H PRN PRN Reason: Nausea And Vomiting Pravastatin Sodium (Pravachol) 40 mg PO QHS [facility] Last Admin: 04/10/19 22:03 Dose: 40 mg Documented by: Sodium Bicarbonate (Sodium Bicarbonate) 650 mg PO TID [facility] Last Admin: 04/10/19 20:43 Dose: 650 mg Documented by: Sodium Chloride (Sodium Chloride Flush Syringe 10 Ml) 10 ml IV BID [facility] Last Admin: 04/10/19 22:08 Dose: 10 ml Documented by: Sodium Chloride (Sodium Chloride Flush Syringe 10 Ml) 10 ml IV PRN PRN PRN Reason: LINE FLUSH Review of Systems All systems: negative Exam - Vital Signs Vital signs: Vital Signs BP 132/89 04/10/19 08:40 - General Appearance General appearance: well-developed, well-nourished EENT: ATNC Respiratory: Clear to Ascultation Heart: regular, S1S2 Gastrointestinal: Present: normal. Absent: tenderness, distended Integumentary: no rash, warm and dry Musculoskeletal: Present: other (no edema) Psychiatric: cooperative Results - Lab Results 04/11/19 04:53 04/10/19 09:01 Most recent lab results Calcium 10.3 mg/dL (8.4-10.2) H 04/10/19 09:01 Assessment and Plan Impression: * End stage renal disease * Altered mental status * Hypertension * Dementia * Hypokalemia * Anemia secondary to ESRD * Leukopenia Plan: * No emergent need for HD today * Will plan for hemodialysis tomorrow - 4K bath w/ dialysis * Resume MWF schedule thereafter * UA ordered and pending * Dose medications for renal function * Viki diet * Epogen TIW prn
[2019-04-11] MEDS ORDERED: HEPARIN IV PRN (06:07)
[2019-04-11] MEDS ORDERED: NACL 0.9% 100 ML IV PRN ×2 (06:07→12:30)
[2019-04-11 06:14] LABS: Calcium 9.5 mg/dL (8.4-10.2)
[2019-04-11] MEDS ORDERED: COREG PO SCH (09:26)
[2019-04-11] MEDS: PEPCID PO SCH ×2 (09:37→22:20)
[2019-04-11] MEDS: Renal Caps PO SCH (09:37)
[2019-04-11] MEDS: SODIUM BICARBONATE PO SCH ×3 (09:37→20:20)
[2019-04-11] MEDS: HEPARIN SUB-Q SCH ×2 (09:37→22:22)
[2019-04-11] MEDS: PLAVIX PO SCH (09:38)
[2019-04-11] MEDS: KEPPRA PO SCH ×2 (09:38→22:20)
[2019-04-11] MEDS: LASIX PO SCH (09:38)
[2019-04-11] MEDS: APRESOLINE PO SCH ×2 (09:39→22:22)
[2019-04-11] MEDS: HALFPRIN EC PO SCH (09:42)
[2019-04-11] MEDS: SODIUM CHLORIDE FLUSH SYRINGE 10 ML IV SCH ×2 (09:50→22:22)
[2019-04-11] MEDS ORDERED: NON-FORMULARY (Vit D3/Folic Acid/B2/B6/B12 [Folgard Tablet] 1 EACH) PO SCH (10:00)
[2019-04-11] MEDS ORDERED: LEVAQUIN 750MG/150ML 750 MG/150 ML BAG IV ONE (10:00)
[2019-04-11] MEDS: COREG PO SCH ×2 (10:03→22:21)
--- NOTE | 2019-04-11 10:35 | Progress Note ---
Assessment and Plan Impression: * End stage renal disease * Altered mental status * Hypertension * Dementia * Hypokalemia * Anemia secondary to ESRD * Leukopenia Plan: * Patient is scheduled for hemodialysis for today * Switch him over to Saturday from next week * Adjust dialysis potassium bath * UA results still pending * Dose medications for renal function * Viki diet * Epogen TIW prn Subjective Date of service: 04/11/19 Interval history: Patient is comfortable this morning. Still appears somewhat confused. Denies any shortness of breath. Objective - Vital Signs Vital signs: Vital Signs - 12hr 04/11/19 04/11/19 04/11/19 02:30 02:45 08:44 Temperature 97.8 F 98.0 F Pulse Rate 60 103 H Respiratory 18 20 Rate Blood Pressure 140/74 143/100 O2 Sat by Pulse 100 Oximetry 04/11/19 10:03 Temperature Pulse Rate 103 H Respiratory Rate Blood Pressure 143/100 O2 Sat by Pulse Oximetry - General Appearance General appearance: well-developed, well-nourished, appears stated age EENT: PERRL, mucous membranes moist Neck: no JVD, no thyromegaly, no carotid bruit, supple, other (right IJ permcath in place ) Respiratory: Present: Clear to Ascultation, Other (midline scar) Cardiology: regular, normal heart rate, S1S2, no murmurs Gastrointestinal: normal, normoactive bowel sounds Integumentary: other (no edema ) - Lab 04/11/19 04:53 04/11/19 04:53 Most recent lab results Calcium 9.5 mg/dL (8.4-10.2) 04/11/19 04:53 Magnesium 2.20 mg/dL (1.7-2.3) 04/11/19 04:53 Medications & Allergies - Medications Allergies/Adverse Reactions: Allergies No Known Allergies Allergy (Verified 02/25/19 14:44) Home Medications: Home Medications Medication Instructions Recorded Confirmed Last Taken Type Aspirin EC 81 mg PO DAILY 10/11/16 04/10/19 04/09/19 History Clopidogrel Bisulfate [Clopidogrel] 75 mg PO DAILY 10/11/16 04/10/19 04/09/19 History Famotidine 40 mg PO BID 10/11/16 04/10/19 04/09/19 History Lovastatin 40 mg PO QHS 10/11/16 04/10/19 04/09/19 History Vit D3/Folic Acid/B2/B6/B12 1 each PO DAILY 10/11/16 04/10/19 04/09/19 History [Folgard Tablet] Furosemide [Lasix TAB] 40 mg PO QDAC 04/10/19 04/10/19 04/09/19 History Sodium Bicarbonate 650 mg PO TID 04/10/19 04/10/19 04/09/19 History hydrALAZINE [Apresoline TAB] 50 mg PO QAM&QHS 04/10/19 04/10/19 04/09/19 History levETIRAcetam [Keppra TAB] 750 mg PO BID 04/10/19 04/10/19 04/09/19 History Active Medications: Generic Name Dose Route Start Last Admin Trade Name Freq PRN Reason Stop Dose Admin Acetaminophen 650 mg 04/10/19 11:53 Tylenol PO Q6H PRN Pain MILD(1-3)/Fever >100.5/ZIMEMRMAN Acetaminophen/Hydrocodone Bitart 2 each 04/10/19 11:53 [place] 5/325 PO Q6H PRN Pain, Moderate (4-6) Aspirin 81 mg 04/11/19 10:00 04/11/19 09:42 Halfprin Ec PO 81 mg DAILY [facility] Administration Carvedilol 25 mg 04/11/19 10:00 04/11/19 10:03 Coreg PO 25 mg BID [facility] Administration Clopidogrel Bisulfate 75 mg 04/10/19 12:00 04/11/19 09:38 Plavix PO 75 mg DAILY [facility] Administration Epoetin Hero 10,000 unit 04/11/19 06:07 Procrit IV LAUREN PRN hemodialysis Famotidine 40 mg 04/10/19 22:00 04/11/19 09:37 Pepcid PO 40 mg BID [facility] Administration Furosemide 40 mg 04/11/19 08:00 04/11/19 09:38 Lasix PO 40 mg QDAC [facility] Administration Heparin Sodium (Porcine) 5,000 unit 04/10/19 22:00 04/11/19 09:37 Heparin SUB-Q 5,000 unit Q12HR [facility] Administration Heparin Sodium (Porcine) 5,000 unit 04/11/19 06:07 Heparin IV LAUREN PRN hemodialysis Hydralazine HCl 50 mg 04/10/19 12:00 04/11/19 09:39 Apresoline PO 50 mg BID [facility] Administration Sodium Chloride 100 mls @ 999 mls/hr 04/11/19 06:07 Nacl 0.9% IV LAUREN PRN Hypotension Levofloxacin/Dextrose 750 mg in 150 mls @ 100 mls/hr 04/11/19 10:00 04/11/19 10:04 Levaquin 750mg/150ml IV 04/11/19 11:29 100 mls/hr ONCE ONE Administration Protocol Levofloxacin/Dextrose 500 mg in 100 mls @ 100 mls/hr 04/13/20 10:00 Levaquin 500mg/100ml IV Q48HR [facility] Levetiracetam 750 mg 04/10/19 22:00 04/11/19 09:38 Keppra PO 750 mg BID [facility] Administration Multivit/Ca Carb/B Cmplx/FA/Prenat 1 cap 04/11/19 10:00 04/11/19 09:37 Renal Caps PO 1 cap QDAY [facility] Administration Ondansetron HCl 4 mg 04/10/19 11:55 Zofran IV Q8H PRN Nausea And Vomiting Pravastatin Sodium 40 mg 04/10/19 22:00 04/10/19 22:03 Pravachol PO 40 mg QHS [facility] Administration Sodium Bicarbonate 650 mg 04/10/19 14:00 04/11/19 09:37 Sodium Bicarbonate PO 650 mg TID [facility] Administration Sodium Chloride 10 ml 04/10/19 22:00 04/11/19 09:50 Sodium Chloride Flush Syringe 10 Ml IV 10 ml BID [facility] Administration Sodium Chloride 10 ml 04/10/19 11:53 Sodium Chloride Flush Syringe 10 Ml IV PRN PRN LINE FLUSH
--- NOTE | 2019-04-11 11:31 | Progress Note ---
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 -We'll continue to monitor clinically SIRS/Possible sepsis -Probably secondary to possible LLL infiltrate per chest x-ray -Lactic acid negative, Urinalysis and blood cultures pending -Chest x-ray reported as left basilar atelectasis, superimposed infection not excluded -On IV antibiotic with levofloxacin Chronic troponin elevation, likely due to ESRD -Patient denies acute chest pain or sob -Serial troponin level trended down -Last echo was in 11/24 which showed EF of 45-50% with moderate mitral regurgitation, repeat echo pending Hypokalemia -Repleted, improved Abnormal thyroid function test -For repeat on outpatient Chronic diastolic HF with EF of 45-50% -No acute exacerbation -Continue Lasix and coreg CAD -Stable -Continue Plavix , Coreg and aspirin ESRD on HD (MWF) -Nephrology consulted Hypertension -Uncontrolled -Continue Hydralazine, Coreg dose increased, will monitor HLD -Continue statin Dementia -No current behavioral disturbances, will monitor AOCD -H/H stable, we'll monitor -On PRN epogen during dialysis Seizure disorder -Stable on Keppra -Continue seizure precautions DVT prophylaxis with heparin Disposition: For discharge when medically stable probably in 2-3 days. Follow- up echocardiogram and blood culture results. History Interval history: Patient has no new complaints. He admits cough. He denies chest pain or shortness of breath. Hospitalist Physical - Constitutional Vitals: Temp Pulse Resp BP Pulse Ox 98.0 F 103 H 20 143/100 100 04/11/19 08:44 04/11/19 10:03 04/11/19 08:44 04/11/19 10:03 04/11/19 08:44 General appearance: Present: no acute distress, other (permcath noted on RT chest) - EENT Eyes: Present: PERRL, EOM intact ENT: hearing intact, clear oral mucosa - Neck Neck: Present: supple - Respiratory Respiratory effort: normal Respiratory: bilateral: CTA - Cardiovascular Rhythm: regular Heart Sounds: Present: S1 & S2 - Extremities Extremities: No edema - Abdominal General gastrointestinal: soft, non-tender, normal bowel sounds - Integumentary Integumentary: Present: clear, warm, dry - Psychiatric Psychiatric: appropriate mood/affect - Neurologic Neurologic: moves all extremities Results - Labs CBC & Chem 7: 04/11/19 04:53 04/11/19 04:53 Labs: Laboratory Last Values WBC 2.1 K/mm3 (4.5-11.0) L 04/11/19 04:53 RBC 3.21 M/mm3 (3.65-5.03) L 04/11/19 04:53 Hgb 9.3 gm/dl (11.8-15.2) L 04/11/19 04:53 Hct 27.8 % (35.5-45.6) L 04/11/19 04:53 MCV 87 fl (84-94) 04/11/19 04:53 MCH 29 pg (28-32) 04/11/19 04:53 MCHC 34 % (32-34) 04/11/19 04:53 RDW 16.2 % (13.2-15.2) H 04/11/19 04:53 Plt Count 150 K/mm3 (140-440) 04/11/19 04:53 Lymph % (Auto) 37.2 % (13.4-35.0) H 04/10/19 09:01 [place] % (Auto) 14.6 % (0.0-7.3) H 04/10/19 09:01 Eos % (Auto) 9.0 % (0.0-4.3) H 04/10/19 09:01 Baso % (Auto) 0.6 % (0.0-1.8) 04/10/19 09:01 Lymph # 1.3 K/mm3 (1.2-5.4) 04/10/19 09:01 [place] # 0.5 K/mm3 (0.0-0.8) 04/10/19 09:01 Eos # 0.3 K/mm3 (0.0-0.4) 04/10/19 09:01 Baso # 0.0 K/mm3 (0.0-0.1) 04/10/19 09:01 Seg Neutrophils % 38.6 % (40.0-70.0) L 04/10/19 09:01 Seg Neutrophils # 1.3 K/mm3 (1.8-7.7) L 04/10/19 09:01 PT 13.8 Sec. (12.2-14.9) 04/10/19 09:01 INR 1.09 (0.87-1.13) 04/10/19 09:01 APTT 104.0 Sec. (24.2-36.6) H* 04/10/19 09:01 VBG pH 7.547 (7.320-7.420) H 04/10/19 09:01 Sodium 137 mmol/L (137-145) 04/11/19 04:53 Potassium 4.0 mmol/L (3.6-5.0) D 04/11/19 04:53 Chloride 99.4 mmol/L (98-107) 04/11/19 04:53 Carbon Dioxide 26 mmol/L (22-30) 04/11/19 04:53 16 mmol/L 04/11/19 04:53 BUN 29 mg/dL (9-20) H 04/11/19 04:53 5.1 mg/dL (0.8-1.5) H 04/11/19 04:53 Estimated GFR 13 ml/min 04/11/19 04:53 6 % 04/11/19 04:53 Glucose 89 mg/dL (75-100) 04/11/19 04:53 POC Glucose 110 (70-105) H 04/10/19 17:18 Lactic Acid 2.00 mmol/L (0.7-2.0) 04/11/19 10:06 Calcium 9.5 mg/dL (8.4-10.2) 04/11/19 04:53 Magnesium 2.20 mg/dL (1.7-2.3) 04/11/19 04:53 0.50 mg/dL (0.1-1.2) 04/10/19 09:01 AST 25 units/L (5-40) 04/10/19 09:01 ALT 11 units/L (7-56) 04/10/19 09:01 64 units/L (35-129) 04/10/19 09:01 15.0 umol/L (25-60) L 04/10/19 09:01 541 units/L (55-170) H 04/10/19 09:01 CK-MB (CK-2) 3.4 ng/mL (0.0-4.0) 04/10/19 09:01 CK-MB (CK-2) Rel Index 0.6 (0-4) 04/10/19 09:01 0.100 ng/mL (0.00-0.029) H 04/10/19 16:28 7.5 g/dL (6.3-8.2) 04/10/19 09:01 4.0 g/dL (3.9-5) 04/10/19 09:01 1.1 % 04/10/19 09:01 Triglycerides 44 mg/dL (2-149) 04/10/19 09:01 Cholesterol 128 mg/dL (50-199) 04/10/19 09:01 66 mg/dL (50-130) 04/10/19 09:01 65 mg/dL (40-59) H 04/10/19 09:01 1.96 % 04/10/19 09:01 17 units/L (13-60) 04/10/19 09:01 TSH 1.580 mlU/mL (0.270-4.200) 04/10/19 09:01 Free T4 1.49 ng/dL (0.76-1.46) H 04/10/19 09:01 Active Medications - Current Medications Current Medications: Generic Name Dose Route Start Last Admin Trade Name Freq PRN Reason Stop Dose Admin Acetaminophen 650 mg 04/10/19 11:53 Tylenol PO Q6H PRN Pain MILD(1-3)/Fever >100.5/ZIMMERMAN Acetaminophen/Hydrocodone Bitart 2 each 04/10/19 11:53 [place] 5/325 PO Q6H PRN Pain, Moderate (4-6) Aspirin 81 mg 04/11/19 10:00 04/11/19 09:42 Halfprin Ec PO 81 mg DAILY DAVID Administration Carvedilol 25 mg 04/11/19 10:00 04/11/19 10:03 Coreg PO 25 mg BID DAVID Administration Clopidogrel Bisulfate 75 mg 04/10/19 12:00 04/11/19 09:38 Plavix PO 75 mg DAILY DAVID Administration Epoetin Hero 10,000 unit 04/11/19 06:07 Procrit IV LAUREN PRN hemodialysis Famotidine 40 mg 04/10/19 22:00 04/11/19 09:37 Pepcid PO 40 mg BID DAVID Administration Furosemide 40 mg 04/11/19 08:00 04/11/19 09:38 Lasix PO 40 mg QDAC DAVID Administration Heparin Sodium (Porcine) 5,000 unit 04/10/19 22:00 04/11/19 09:37 Heparin SUB-Q 5,000 unit Q12HR DAVID Administration Heparin Sodium (Porcine) 5,000 unit 04/11/19 06:07 Heparin IV LAUREN PRN hemodialysis Hydralazine HCl 50 mg 04/10/19 12:00 04/11/19 09:39 Apresoline PO 50 mg BID DAVID Administration Sodium Chloride 100 mls @ 999 mls/hr 04/11/19 06:07 Nacl 0.9% IV LAUREN PRN Hypotension Levofloxacin/Dextrose 750 mg in 150 mls @ 100 mls/hr 04/11/19 10:00 04/11/19 10:04 Levaquin 750mg/150ml IV 04/11/19 11:29 100 mls/hr ONCE ONE Administration Protocol Levofloxacin/Dextrose 500 mg in 100 mls @ 100 mls/hr 04/13/20 10:00 Levaquin 500mg/100ml IV Q48HR DAVID Levetiracetam 750 mg 04/10/19 22:00 04/11/19 09:38 Keppra PO 750 mg BID DAVID Administration Multivit/Ca Carb/B Cmplx/FA/Prenat 1 cap 04/11/19 10:00 04/11/19 09:37 Renal Caps PO 1 cap QDAY DAVID Administration Ondansetron HCl 4 mg 04/10/19 11:55 Zofran IV Q8H PRN Nausea And Vomiting Pravastatin Sodium 40 mg 04/10/19 22:00 04/10/19 22:03 Pravachol PO 40 mg QHS DAVID Administration Sodium Bicarbonate 650 mg 04/10/19 14:00 04/11/19 09:37 Sodium Bicarbonate PO 650 mg TID DAVID Administration Sodium Chloride 10 ml 04/10/19 22:00 04/11/19 09:50 Sodium Chloride Flush Syringe 10 Ml IV 10 ml BID DAVID Administration Sodium Chloride 10 ml 04/10/19 11:53 Sodium Chloride Flush Syringe 10 Ml IV PRN PRN LINE FLUSH
[2019-04-11] MEDS ORDERED: NACL 0.9 (PRIMING MACHINE ONLY DIALYSIS) MC ONE (12:42)
[2019-04-11 13:33] LABS: Hepatitis C Virus Antibody Non-Reactive (NonReactive)
[2019-04-11 13:34] LABS: Hepatitis B Surface Antigen Non-Reactive (Negative)
[2019-04-11] MEDS: PROCRIT IV PRN (15:15)
[2019-04-11] MEDS: PRAVACHOL PO SCH (22:21)
[2019-04-12] MEDS: ZOFRAN IV PRN (06:04)
[2019-04-12 06:07] LABS: Hematocrit 29.8 % (35.5-45.6); Hemoglobin 9.9 gm/dl (11.8-15.2); Mean Corpuscular HGB Conc 33 % (32-34); Mean Corpuscular Volume 88 fl (84-94); Platelet Count 154 K/mm3 (140-440); Red Blood Count 3.41 M/mm3 (3.65-5.03); Red Cell Distribution Width 16.4 % (13.2-15.2)
[2019-04-12 06:23] LABS: Bilirubin,Urine NEG (Negative); Blood,Urine NEG (Negative); Color,Urine Yellow (Yellow); Urobilinogen,Urine < 2.0 mg/dL (<2.0)
[2019-04-12 06:26] LABS: Calcium 9.8 mg/dL (8.4-10.2)
[2019-04-12 07:09] LABS: Basophils % (Manual) 0 % (0.0-1.8); Total Cells Counted 100
[2019-04-12 07:10] LABS: Anisocytosis Few; Ovalocytes Few; Platelet Estimate Consistent w Auto; Poikilocytosis Few
--- NOTE | 2019-04-12 07:54 | Progress Note ---
Assessment and Plan Assessment and plan: 83-year-old man with history of end-stage renal disease who presented with altered mental status by his . The patient was hyper jainism, he refused to make eye contact or follow commands at the time of admission. Past medical history includes hypertension, end-stage renal disease on dialysis, seizure disorder Acute metabolic encephalopathy Possibly due to uremia, SIRS, CT head negative, appears to be resolving SIRS On antibiotics, for possible left lower lung infiltrates. Repeat chest x-ray and obtain 2 view this time. Follow-up blood cultures, follow-up echo Chronically elevated troponin, likely due to end-stage renal disease Patient denies chest pain, follow-up echo Hypokalemia Repleted Patient's free T4 is on the upper level of normal, this is an unexpected finding, we'll obtain total T4 Hypertension Continue to optimize blood pressure medications Hyperlipidemia Continue statin DVT prophylaxis with heparin Disposition; tentative discharge tomorrow if workup is negative History Interval history: Review of systems Constitutional: No fevers, no malaise, no joint pains CVS: No chest pain, no orthopnea, no dyspnea on exertion, no pedal edema GI: No abdominal pain, no diarrhea, no vomiting, no constipation Respiratory: no wheezing, no coughing Hospitalist Physical - Physical exam Narrative exam: General.: Appears well, no distress, nontoxic HEENT: Moist mucous membranes, extraocular muscles intact, no lymphadenopathy Neck: supple Cardiac: S1-S2 heard Lungs: clear to auscultation bilaterally Abdomen: soft , nontender, nondistended, bowel sounds positive Extremities: no edema clubbing or cyanosis Skin: no rash or lesions Neurologic: no gross focal deficits Psych: calm, and cooperative - Constitutional Vitals: Temp Pulse Resp BP Pulse Ox 97.0 F L 102 H 18 160/70 99 04/12/19 02:47 04/11/19 22:21 04/12/19 02:47 04/12/19 02:47 04/11/19 22:00 General appearance: Present: no acute distress, other (permcath noted on RT chest) Results - Labs CBC & Chem 7: 04/12/19 05:09 04/12/19 05:09 Labs: Laboratory Last Values WBC 2.3 K/mm3 (4.5-11.0) L 04/12/19 05:09 RBC 3.41 M/mm3 (3.65-5.03) L 04/12/19 05:09 Hgb 9.9 gm/dl (11.8-15.2) L 04/12/19 05:09 Hct 29.8 % (35.5-45.6) L 04/12/19 05:09 MCV 88 fl (84-94) 04/12/19 05:09 MCH 29 pg (28-32) 04/12/19 05:09 MCHC 33 % (32-34) 04/12/19 05:09 RDW 16.4 % (13.2-15.2) H 04/12/19 05:09 Plt Count 154 K/mm3 (140-440) 04/12/19 05:09 Lymph % (Auto) 37.2 % (13.4-35.0) H 04/10/19 09:01 [place] % (Auto) 14.6 % (0.0-7.3) H 04/10/19 09:01 Eos % (Auto) 9.0 % (0.0-4.3) H 04/10/19 09:01 Baso % (Auto) 0.6 % (0.0-1.8) 04/10/19 09:01 Lymph # 1.3 K/mm3 (1.2-5.4) 04/10/19 09:01 [place] # 0.5 K/mm3 (0.0-0.8) 04/10/19 09:01 Eos # 0.3 K/mm3 (0.0-0.4) 04/10/19 09:01 Baso # 0.0 K/mm3 (0.0-0.1) 04/10/19 09:01 Add Manual Diff Complete 04/12/19 05:09 Total Counted 100 04/12/19 05:09 Seg Neutrophils % 38.6 % (40.0-70.0) L 04/10/19 09:01 Seg Neuts % (Manual) 44.0 % (40.0-70.0) 04/12/19 05:09 0 % 04/12/19 05:09 35.0 % (13.4-35.0) 04/12/19 05:09 Reactive Lymphs % (Man) 0 % 04/12/19 05:09 8.0 % (0.0-7.3) H 04/12/19 05:09 13.0 % (0.0-4.3) H 04/12/19 05:09 0 % (0.0-1.8) 04/12/19 05:09 0 % 04/12/19 05:09 0 % 04/12/19 05:09 0 % 04/12/19 05:09 0 % 04/12/19 05:09 Nucleated RBC % Not Reportable 04/12/19 05:09 Seg Neutrophils # 1.3 K/mm3 (1.8-7.7) L 04/10/19 09:01 Seg Neutrophils # Man 1.0 K/mm3 (1.8-7.7) L 04/12/19 05:09 Band Neutrophils # 0.0 K/mm3 04/12/19 05:09 0.8 K/mm3 (1.2-5.4) L 04/12/19 05:09 Abs React Lymphs (Man) 0.0 K/mm3 04/12/19 05:09 0.2 K/mm3 (0.0-0.8) 04/12/19 05:09 0.3 K/mm3 (0.0-0.4) 04/12/19 05:09 0.0 K/mm3 (0.0-0.1) 04/12/19 05:09 0.0 K/mm3 04/12/19 05:09 0.0 K/mm3 04/12/19 05:09 0.0 K/mm3 04/12/19 05:09 Blast Cells # 0.0 K/mm3 04/12/19 05:09 WBC Morphology Not Reportable 04/12/19 05:09 Hypersegmented Neuts Not Reportable 04/12/19 05:09 Hyposegmented Neuts Not Reportable 04/12/19 05:09 Hypogranular Neuts Not Reportable 04/12/19 05:09 Not Reportable 04/12/19 05:09 Not Reportable 04/12/19 05:09 Not Reportable 04/12/19 05:09 Not Reportable 04/12/19 05:09 Not Reportable 04/12/19 05:09 Not Reportable 04/12/19 05:09 Consistent w auto 04/12/19 05:09 Not Reportable 04/12/19 05:09 Plt Clumps, EDTA Not Reportable 04/12/19 05:09 Not Reportable 04/12/19 05:09 Not Reportable 04/12/19 05:09 Not Reportable 04/12/19 05:09 Plt Morphology Comment Not Reportable 04/12/19 05:09 RBC Morphology Not Reportable 04/12/19 05:09 Dimorphic RBCs Not Reportable 04/12/19 05:09 Not Reportable 04/12/19 05:09 Not Reportable 04/12/19 05:09 Few 04/12/19 05:09 Few 04/12/19 05:09 Not Reportable 04/12/19 05:09 Not Reportable 04/12/19 05:09 Not Reportable 04/12/19 05:09 Not Reportable 04/12/19 05:09 Not Reportable 04/12/19 05:09 Not Reportable 04/12/19 05:09 Not Reportable 04/12/19 05:09 Few 04/12/19 05:09 Not Reportable 04/12/19 05:09 Not Reportable 04/12/19 05:09 Not Reportable 04/12/19 05:09 Not Reportable 04/12/19 05:09 Not Reportable 04/12/19 05:09 Not Reportable 04/12/19 05:09 Not Reportable 04/12/19 05:09 Acanthocytes (Spur) Not Reportable 04/12/19 05:09 [place]le[place] Not Reportable 04/12/19 05:09 Not Reportable 04/12/19 05:09 Not Reportable 04/12/19 05:09 Not Reportable 04/12/19 05:09 Not Reportable 04/12/19 05:09 Hem Pathologist Commnt No 04/12/19 05:09 PT 13.8 Sec. (12.2-14.9) 04/10/19 09:01 INR 1.09 (0.87-1.13) 04/10/19 09:01 APTT 104.0 Sec. (24.2-36.6) H* 04/10/19 09:01 VBG pH 7.547 (7.320-7.420) H 04/10/19 09:01 Sodium 136 mmol/L (137-145) L 04/12/19 05:09 Potassium 4.0 mmol/L (3.6-5.0) 04/12/19 05:09 Chloride 96.8 mmol/L (98-107) L 04/12/19 05:09 Carbon Dioxide 26 mmol/L (22-30) 04/12/19 05:09 17 mmol/L 04/12/19 05:09 BUN 14 mg/dL (9-20) 04/12/19 05:09 3.2 mg/dL (0.8-1.5) H 04/12/19 05:09 Estimated GFR 23 ml/min 04/12/19 05:09 4 % 04/12/19 05:09 Glucose 107 mg/dL (75-100) H 04/12/19 05:09 POC Glucose 123 (70-105) H 04/11/19 22:49 Lactic Acid 0.70 mmol/L (0.7-2.0) 04/11/19 13:07 Calcium 9.8 mg/dL (8.4-10.2) 04/12/19 05:09 Magnesium 2.20 mg/dL (1.7-2.3) 04/11/19 04:53 0.50 mg/dL (0.1-1.2) 04/10/19 09:01 AST 25 units/L (5-40) 04/10/19 09:01 ALT 11 units/L (7-56) 04/10/19 09:01 64 units/L (35-129) 04/10/19 09:01 15.0 umol/L (25-60) L 04/10/19 09:01 541 units/L (55-170) H 04/10/19 09:01 CK-MB (CK-2) 3.4 ng/mL (0.0-4.0) 04/10/19 09:01 CK-MB (CK-2) Rel Index 0.6 (0-4) 04/10/19 09:01 0.100 ng/mL (0.00-0.029) H 04/10/19 16:28 7.5 g/dL (6.3-8.2) 04/10/19 09:01 4.0 g/dL (3.9-5) 04/10/19 09:01 1.1 % 04/10/19 09:01 Triglycerides 44 mg/dL (2-149) 04/10/19 09:01 Cholesterol 128 mg/dL (50-199) 04/10/19 09:01 66 mg/dL (50-130) 04/10/19 09:01 65 mg/dL (40-59) H 04/10/19 09:01 1.96 % 04/10/19 09:01 17 units/L (13-60) 04/10/19 09:01 TSH 1.580 mlU/mL (0.270-4.200) 04/10/19 09:01 Free T4 1.49 ng/dL (0.76-1.46) H 04/10/19 09:01 Yellow (Yellow) 04/12/19 06:06 Clear (Clear) 04/12/19 06:06 8.0 (5.0-7.0) H 04/12/19 06:06 Ur Specific [place] 1.006 (1.003-1.030) 04/12/19 06:06 100 mg/dl mg/dL (Negative) 04/12/19 06:06 Neg mg/dL (Negative) 04/12/19 06:06 Neg mg/dL (Negative) 04/12/19 06:06 Neg (Negative) 04/12/19 06:06 Neg (Negative) 04/12/19 06:06 Neg (Negative) 04/12/19 06:06 < 2.0 mg/dL (<2.0) 04/12/19 06:06 Ur Leukocyte Esterase Neg (Negative) 04/12/19 06:06 1.0 /HPF (0.0-6.0) 04/12/19 06:06 3.0 /HPF (0.0-6.0) 04/12/19 06:06 U Epithel Cells (Auto) 1.0 /HPF (0-13.0) 04/12/19 06:06 Hepatitis A IgM Ab Non-reactive (NonReactive) 04/11/19 12:30 Hep Bs Antigen Non-reactive (Negative) 04/11/19 12:30 Hep B Core IgM Ab Non-reactive (NonReactive) 04/11/19 12:30 Non-reactive (NonReactive) 04/11/19 12:30 Active Medications - Current Medications Current Medications: Generic Name Dose Route Start Last Admin Trade Name Freq PRN Reason Stop Dose Admin Acetaminophen 650 mg 04/10/19 11:53 Tylenol PO Q6H PRN Pain MILD(1-3)/Fever >100.5/ZIMMERMAN Acetaminophen/Hydrocodone Bitart 2 each 04/10/19 11:53 04/11/19 22:30 [place] 5/325 PO 2 each Q6H PRN Administration Pain, Moderate (4-6) Aspirin 81 mg 04/11/19 10:00 04/11/19 09:42 Halfprin Ec PO 81 mg DAILY DAVID Administration Carvedilol 25 mg 04/11/19 10:00 04/11/19 22:21 Coreg PO 25 mg BID DAVID Administration Clopidogrel Bisulfate 75 mg 04/10/19 12:00 04/11/19 09:38 Plavix PO 75 mg DAILY DAVID Administration Epoetin Hero 10,000 unit 04/11/19 06:07 04/11/19 15:15 Procrit IV 10,000 unit LAUREN PRN Administration hemodialysis Famotidine 40 mg 04/10/19 22:00 04/11/19 22:20 Pepcid PO 40 mg BID DAVID Administration Furosemide 40 mg 04/11/19 08:00 04/11/19 09:38 Lasix PO 40 mg QDAC DAVID Administration Heparin Sodium (Porcine) 5,000 unit 04/10/19 22:00 04/11/19 22:22 Heparin SUB-Q 5,000 unit Q12HR DAVID Administration Heparin Sodium (Porcine) 5,000 unit 04/11/19 06:07 04/11/19 15:59 Heparin IV 5,000 unit LAUREN PRN Administration hemodialysis Hydralazine HCl 50 mg 04/10/19 12:00 04/11/19 22:22 Apresoline PO 50 mg BID DAVID Administration Sodium Chloride 100 mls @ 999 mls/hr 04/11/19 06:07 Nacl 0.9% IV LAUREN PRN Hypotension Levofloxacin/Dextrose 500 mg in 100 mls @ 100 mls/hr 04/13/20 10:00 Levaquin 500mg/100ml IV Q48HR DAVID Sodium Chloride 100 mls @ 999 mls/hr 04/11/19 12:30 Nacl 0.9% IV LAUREN PRN Hypotension Levetiracetam 750 mg 04/10/19 22:00 04/11/19 22:20 Keppra PO 750 mg BID DAVID Administration Multivit/Ca Carb/B Cmplx/FA/Prenat 1 cap 04/11/19 10:00 04/11/19 09:37 Renal Caps PO 1 cap QDAY DAVID Administration Ondansetron HCl 4 mg 04/10/19 11:55 04/12/19 06:04 Zofran IV 4 mg Q8H PRN Administration Nausea And Vomiting Pravastatin Sodium 40 mg 04/10/19 22:00 04/11/19 22:21 Pravachol PO 40 mg QHS DAVID Administration Sodium Bicarbonate 650 mg 04/10/19 14:00 04/11/19 20:20 Sodium Bicarbonate PO 650 mg TID DAVID Administration Sodium Chloride 10 ml 04/10/19 22:00 04/11/19 22:22 Sodium Chloride Flush Syringe 10 Ml IV 10 ml BID DAVID Administration Sodium Chloride 10 ml 04/10/19 11:53 Sodium Chloride Flush Syringe 10 Ml IV PRN PRN LINE FLUSH
--- NOTE | 2019-04-12 10:33 | XRay Report ---
CHEST 2 VIEWS INDICATION / CLINICAL INFORMATION: fever. COMPARISON: Chest x-ray 04/10/2019 FINDINGS: SUPPORT DEVICES: Right internal jugular dialysis catheter and left subclavian pacemaker leads are unc hanged. HEART / MEDIASTINUM: Sternotomy, CABG and cardiomegaly is again noted . LUNGS / PLEURA: No significant pulmonary or pleural abnormality. No pneumothorax. ADDITIONAL FINDINGS: No significant additional findings. IMPRESSION: 1. Cardiomegaly without CHF Signer Name: Marco Bess MD Signed: 04/12/2019 10:29 AM Workstation Name: [id number]
[2019-04-12] MEDS ORDERED: NACL 0.9% 100 ML IV PRN (11:40)
--- NOTE | 2019-04-12 11:40 | Progress Note ---
Assessment and Plan Impression: * End stage renal disease * Altered mental status * Hypertension * Dementia * Hypokalemia * Anemia secondary to ESRD * Leukopenia Plan: * Patient had uneventful hemodialysis yesterday * Switch him over to Saturday from next week * Adjust dialysis potassium bath * Urine does not show any evidence of UTI or microhematuria * Dose medications for renal function * Viki diet * Epogen TIW prn Subjective Date of service: 04/12/19 Interval history: Patient still remains confused. No nausea or vomiting. at bedside. Objective - Vital Signs Vital signs: Vital Signs - 12hr 04/12/19 04/12/19 02:47 08:01 Temperature 97.0 F L 97.3 F L Pulse Rate 76 Respiratory 18 18 Rate Blood Pressure 160/70 161/86 O2 Sat by Pulse 98 Oximetry - General Appearance General appearance: well-developed, well-nourished, appears stated age EENT: PERRL, mucous membranes moist Neck: no JVD, no thyromegaly, no carotid bruit, supple, other (IJ PermCath in place) Respiratory: Present: Clear to Ascultation Cardiology: regular, normal heart rate, S1S2, no murmurs Gastrointestinal: normal, normoactive bowel sounds Integumentary: no rash, other (no edema) - Lab 04/12/19 05:09 04/12/19 05:09 Most recent lab results Calcium 9.8 mg/dL (8.4-10.2) 04/12/19 05:09 Magnesium 2.20 mg/dL (1.7-2.3) 04/11/19 04:53 Medications & Allergies - Medications Allergies/Adverse Reactions: Allergies No Known Allergies Allergy (Verified 02/25/19 14:44) Home Medications: Home Medications Medication Instructions Recorded Confirmed Last Taken Type Aspirin EC 81 mg PO DAILY 10/11/16 04/10/19 04/09/19 History Clopidogrel Bisulfate [Clopidogrel] 75 mg PO DAILY 10/11/16 04/10/19 04/09/19 History Famotidine 40 mg PO BID 10/11/16 04/10/19 04/09/19 History Lovastatin 40 mg PO QHS 10/11/16 04/10/19 04/09/19 History Vit D3/Folic Acid/B2/B6/B12 1 each PO DAILY 10/11/16 04/10/19 04/09/19 History [Folgard Tablet] Furosemide [Lasix TAB] 40 mg PO QDAC 04/10/19 04/10/19 04/09/19 History Sodium Bicarbonate 650 mg PO TID 04/10/19 04/10/19 04/09/19 History hydrALAZINE [Apresoline TAB] 50 mg PO QAM&QHS 04/10/19 04/10/19 04/09/19 History levETIRAcetam [Keppra TAB] 750 mg PO BID 04/10/19 04/10/19 04/09/19 History Active Medications: Generic Name Dose Route Start Last Admin Trade Name Freq PRN Reason Stop Dose Admin Acetaminophen 650 mg 04/10/19 11:53 Tylenol PO Q6H PRN Pain MILD(1-3)/Fever >100.5/ZIMMERMAN Acetaminophen/Hydrocodone Bitart 2 each 04/10/19 11:53 04/11/19 22:30 [place] 5/325 PO 2 each Q6H PRN Administration Pain, Moderate (4-6) Aspirin 81 mg 04/11/19 10:00 04/11/19 09:42 Halfprin Ec PO 81 mg DAILY DAVID Administration Carvedilol 25 mg 04/11/19 10:00 04/11/19 22:21 Coreg PO 25 mg BID DAVID Administration Clopidogrel Bisulfate 75 mg 04/10/19 12:00 04/11/19 09:38 Plavix PO 75 mg DAILY DAVID Administration Epoetin Hero 10,000 unit 04/11/19 06:07 04/11/19 15:15 Procrit IV 10,000 unit LAUREN PRN Administration hemodialysis Famotidine 40 mg 04/10/19 22:00 04/11/19 22:20 Pepcid PO 40 mg BID DAVID Administration Furosemide 40 mg 04/11/19 08:00 04/11/19 09:38 Lasix PO 40 mg QDAC DAVID Administration Heparin Sodium (Porcine) 5,000 unit 04/10/19 22:00 04/11/19 22:22 Heparin SUB-Q 5,000 unit Q12HR DAVID Administration Heparin Sodium (Porcine) 5,000 unit 04/11/19 06:07 04/11/19 15:59 Heparin IV 5,000 unit LAUREN PRN Administration hemodialysis Hydralazine HCl 50 mg 04/10/19 12:00 04/11/19 22:22 Apresoline PO 50 mg BID DAVID Administration Sodium Chloride 100 mls @ 999 mls/hr 04/11/19 06:07 Nacl 0.9% IV LAUREN PRN Hypotension Levofloxacin/Dextrose 500 mg in 100 mls @ 100 mls/hr 04/13/20 10:00 Levaquin 500mg/100ml IV Q48HR DAVID Sodium Chloride 100 mls @ 999 mls/hr 04/11/19 12:30 Nacl 0.9% IV LAUREN PRN Hypotension Levetiracetam 750 mg 04/10/19 22:00 04/11/19 22:20 Keppra PO 750 mg BID DAVID Administration Multivit/Ca Carb/B Cmplx/FA/Prenat 1 cap 04/11/19 10:00 04/11/19 09:37 Renal Caps PO 1 cap QDAY DAVID Administration Ondansetron HCl 4 mg 04/10/19 11:55 04/12/19 06:04 Zofran IV 4 mg Q8H PRN Administration Nausea And Vomiting Pravastatin Sodium 40 mg 04/10/19 22:00 04/11/19 22:21 Pravachol PO 40 mg QHS DAVID Administration Sodium Bicarbonate 650 mg 04/10/19 14:00 04/11/19 20:20 Sodium Bicarbonate PO 650 mg TID DAVID Administration Sodium Chloride 10 ml 04/10/19 22:00 04/11/19 22:22 Sodium Chloride Flush Syringe 10 Ml IV 10 ml BID DAVID Administration Sodium Chloride 10 ml 04/10/19 11:53 Sodium Chloride Flush Syringe 10 Ml IV PRN PRN LINE FLUSH
[2019-04-12] MEDS: Renal Caps PO SCH (12:12)
[2019-04-12] MEDS: PLAVIX PO SCH (12:12)
[2019-04-12] MEDS: SODIUM BICARBONATE PO SCH ×3 (12:12→21:05)
[2019-04-12] MEDS: HALFPRIN EC PO SCH (12:12)
[2019-04-12] MEDS: LASIX PO SCH (12:12)
[2019-04-12] MEDS: PEPCID PO SCH ×2 (12:13→22:33)
[2019-04-12] MEDS: KEPPRA PO SCH ×2 (12:13→22:33)
[2019-04-12] MEDS: APRESOLINE PO SCH ×2 (12:16→21:04)
[2019-04-12] MEDS: COREG PO SCH ×2 (12:17→22:34)
[2019-04-12] MEDS: HEPARIN SUB-Q SCH ×2 (12:18→22:33)
[2019-04-12] MEDS: SODIUM CHLORIDE FLUSH SYRINGE 10 ML IV SCH ×2 (12:19→22:35)
[2019-04-12] MEDS: TYLENOL PO PRN ×2 (16:13→16:16)
[2019-04-12] MEDS: PRAVACHOL PO SCH (22:33)
[2019-04-13] MEDS: ZOFRAN IV PRN (05:53)
--- NOTE | 2019-04-13 07:39 | Progress Note ---
Hospitalist Physical - Constitutional Vitals: Temp Pulse Resp BP Pulse Ox 97.5 F L 80 22 157/88 97 04/13/19 02:12 04/13/19 02:12 04/13/19 02:12 04/13/19 02:12 04/13/19 02:12 General appearance: Present: no acute distress, other (permcath noted on RT chest) Results - Labs CBC & Chem 7: 04/12/19 05:09 04/12/19 05:09 Labs: Laboratory Last Values WBC 2.3 K/mm3 (4.5-11.0) L 04/12/19 05:09 RBC 3.41 M/mm3 (3.65-5.03) L 04/12/19 05:09 Hgb 9.9 gm/dl (11.8-15.2) L 04/12/19 05:09 Hct 29.8 % (35.5-45.6) L 04/12/19 05:09 MCV 88 fl (84-94) 04/12/19 05:09 MCH 29 pg (28-32) 04/12/19 05:09 MCHC 33 % (32-34) 04/12/19 05:09 RDW 16.4 % (13.2-15.2) H 04/12/19 05:09 Plt Count 154 K/mm3 (140-440) 04/12/19 05:09 Lymph % (Auto) 37.2 % (13.4-35.0) H 04/10/19 09:01 Mason % (Auto) 14.6 % (0.0-7.3) H 04/10/19 09:01 Eos % (Auto) 9.0 % (0.0-4.3) H 04/10/19 09:01 Baso % (Auto) 0.6 % (0.0-1.8) 04/10/19 09:01 Lymph # 1.3 K/mm3 (1.2-5.4) 04/10/19 09:01 Mason # 0.5 K/mm3 (0.0-0.8) 04/10/19 09:01 Eos # 0.3 K/mm3 (0.0-0.4) 04/10/19 09:01 Baso # 0.0 K/mm3 (0.0-0.1) 04/10/19 09:01 Add Manual Diff Complete 04/12/19 05:09 Total Counted 100 04/12/19 05:09 Seg Neutrophils % 38.6 % (40.0-70.0) L 04/10/19 09:01 Seg Neuts % (Manual) 44.0 % (40.0-70.0) 04/12/19 05:09 0 % 04/12/19 05:09 35.0 % (13.4-35.0) 04/12/19 05:09 Reactive Lymphs % (Man) 0 % 04/12/19 05:09 8.0 % (0.0-7.3) H 04/12/19 05:09 13.0 % (0.0-4.3) H 04/12/19 05:09 0 % (0.0-1.8) 04/12/19 05:09 0 % 04/12/19 05:09 0 % 04/12/19 05:09 0 % 04/12/19 05:09 0 % 04/12/19 05:09 Nucleated RBC % Not Reportable 04/12/19 05:09 Seg Neutrophils # 1.3 K/mm3 (1.8-7.7) L 04/10/19 09:01 Seg Neutrophils # Man 1.0 K/mm3 (1.8-7.7) L 04/12/19 05:09 Band Neutrophils # 0.0 K/mm3 04/12/19 05:09 0.8 K/mm3 (1.2-5.4) L 04/12/19 05:09 Abs React Lymphs (Man) 0.0 K/mm3 04/12/19 05:09 0.2 K/mm3 (0.0-0.8) 04/12/19 05:09 0.3 K/mm3 (0.0-0.4) 04/12/19 05:09 0.0 K/mm3 (0.0-0.1) 04/12/19 05:09 0.0 K/mm3 04/12/19 05:09 0.0 K/mm3 04/12/19 05:09 0.0 K/mm3 04/12/19 05:09 Blast Cells # 0.0 K/mm3 04/12/19 05:09 WBC Morphology Not Reportable 04/12/19 05:09 Hypersegmented Neuts Not Reportable 04/12/19 05:09 Hyposegmented Neuts Not Reportable 04/12/19 05:09 Hypogranular Neuts Not Reportable 04/12/19 05:09 Not Reportable 04/12/19 05:09 Not Reportable 04/12/19 05:09 Not Reportable 04/12/19 05:09 Not Reportable 04/12/19 05:09 Not Reportable 04/12/19 05:09 Not Reportable 04/12/19 05:09 Consistent w auto 04/12/19 05:09 Not Reportable 04/12/19 05:09 Plt Clumps, EDTA Not Reportable 04/12/19 05:09 Not Reportable 04/12/19 05:09 Not Reportable 04/12/19 05:09 Not Reportable 04/12/19 05:09 Plt Morphology Comment Not Reportable 04/12/19 05:09 RBC Morphology Not Reportable 04/12/19 05:09 Dimorphic RBCs Not Reportable 04/12/19 05:09 Not Reportable 04/12/19 05:09 Not Reportable 04/12/19 05:09 Few 04/12/19 05:09 Few 04/12/19 05:09 Not Reportable 04/12/19 05:09 Not Reportable 04/12/19 05:09 Not Reportable 04/12/19 05:09 Not Reportable 04/12/19 05:09 Not Reportable 04/12/19 05:09 Not Reportable 04/12/19 05:09 Not Reportable 04/12/19 05:09 Few 04/12/19 05:09 Not Reportable 04/12/19 05:09 Not Reportable 04/12/19 05:09 Not Reportable 04/12/19 05:09 Not Reportable 04/12/19 05:09 Not Reportable 04/12/19 05:09 Not Reportable 04/12/19 05:09 Not Reportable 04/12/19 05:09 Acanthocytes (Spur) Not Reportable 04/12/19 05:09 Rouleaux Not Reportable 04/12/19 05:09 Not Reportable 04/12/19 05:09 Not Reportable 04/12/19 05:09 Not Reportable 04/12/19 05:09 Not Reportable 04/12/19 05:09 Hem Pathologist Commnt No 04/12/19 05:09 PT 13.8 Sec. (12.2-14.9) 04/10/19 09:01 INR 1.09 (0.87-1.13) 04/10/19 09:01 APTT 104.0 Sec. (24.2-36.6) H* 04/10/19 09:01 VBG pH 7.547 (7.320-7.420) H 04/10/19 09:01 Sodium 136 mmol/L (137-145) L 04/12/19 05:09 Potassium 4.0 mmol/L (3.6-5.0) 04/12/19 05:09 Chloride 96.8 mmol/L (98-107) L 04/12/19 05:09 Carbon Dioxide 26 mmol/L (22-30) 04/12/19 05:09 17 mmol/L 04/12/19 05:09 BUN 14 mg/dL (9-20) 04/12/19 05:09 3.2 mg/dL (0.8-1.5) H 04/12/19 05:09 Estimated GFR 23 ml/min 04/12/19 05:09 4 % 04/12/19 05:09 Glucose 107 mg/dL (75-100) H 04/12/19 05:09 POC Glucose 102 (70-105) 04/13/19 06:26 Lactic Acid 0.70 mmol/L (0.7-2.0) 04/11/19 13:07 Calcium 9.8 mg/dL (8.4-10.2) 04/12/19 05:09 Magnesium 2.20 mg/dL (1.7-2.3) 04/11/19 04:53 0.50 mg/dL (0.1-1.2) 04/10/19 09:01 AST 25 units/L (5-40) 04/10/19 09:01 ALT 11 units/L (7-56) 04/10/19 09:01 64 units/L (35-129) 04/10/19 09:01 15.0 umol/L (25-60) L 04/10/19 09:01 541 units/L (55-170) H 04/10/19 09:01 CK-MB (CK-2) 3.4 ng/mL (0.0-4.0) 04/10/19 09:01 CK-MB (CK-2) Rel Index 0.6 (0-4) 04/10/19 09:01 0.100 ng/mL (0.00-0.029) H 04/10/19 16:28 7.5 g/dL (6.3-8.2) 04/10/19 09:01 4.0 g/dL (3.9-5) 04/10/19 09:01 1.1 % 04/10/19 09:01 Triglycerides 44 mg/dL (2-149) 04/10/19 09:01 Cholesterol 128 mg/dL (50-199) 04/10/19 09:01 66 mg/dL (50-130) 04/10/19 09:01 65 mg/dL (40-59) H 04/10/19 09:01 1.96 % 04/10/19 09:01 17 units/L (13-60) 04/10/19 09:01 TSH 1.580 mlU/mL (0.270-4.200) 04/10/19 09:01 Free T4 1.49 ng/dL (0.76-1.46) H 04/10/19 09:01 9.4 ug/dL (4.0-12.0) 04/12/19 05:09 Yellow (Yellow) 04/12/19 06:06 Clear (Clear) 04/12/19 06:06 8.0 (5.0-7.0) H 04/12/19 06:06 Ur Specific [place] 1.006 (1.003-1.030) 04/12/19 06:06 100 mg/dl mg/dL (Negative) 04/12/19 06:06 Neg mg/dL (Negative) 04/12/19 06:06 Neg mg/dL (Negative) 04/12/19 06:06 Neg (Negative) 04/12/19 06:06 Neg (Negative) 04/12/19 06:06 Neg (Negative) 04/12/19 06:06 < 2.0 mg/dL (<2.0) 04/12/19 06:06 Ur Leukocyte Esterase Neg (Negative) 04/12/19 06:06 1.0 /HPF (0.0-6.0) 04/12/19 06:06 3.0 /HPF (0.0-6.0) 04/12/19 06:06 U Epithel Cells (Auto) 1.0 /HPF (0-13.0) 04/12/19 06:06 Hepatitis A IgM Ab Non-reactive (NonReactive) 04/11/19 12:30 Hep Bs Antigen Non-reactive (Negative) 04/11/19 12:30 Hep B Core IgM Ab Non-reactive (NonReactive) 04/11/19 12:30 Non-reactive (NonReactive) 04/11/19 12:30 Active Medications - Current Medications Current Medications: Generic Name Dose Route Start Last Admin Trade Name Freq PRN Reason Stop Dose Admin Acetaminophen 650 mg 04/10/19 11:53 04/12/19 16:16 Tylenol PO 650 mg Q6H PRN Administration Pain MILD(1-3)/Fever >100.5/ZIMMERMAN Acetaminophen/Hydrocodone Bitart 2 each 04/10/19 11:53 04/11/19 22:30 [place] 5/325 PO 2 each Q6H PRN Administration Pain, Moderate (4-6) Aspirin 81 mg 04/11/19 10:00 04/12/19 12:12 Halfprin Ec PO 81 mg DAILY DAVID Administration Carvedilol 25 mg 04/11/19 10:00 04/12/19 22:34 Coreg PO 25 mg BID DAVID Administration Clopidogrel Bisulfate 75 mg 04/10/19 12:00 04/12/19 12:12 Plavix PO 75 mg DAILY DAVID Administration Epoetin Hero 10,000 unit 04/11/19 06:07 04/11/19 15:15 Procrit IV 10,000 unit LAUREN PRN Administration hemodialysis Famotidine 40 mg 04/10/19 22:00 04/12/19 22:33 Pepcid PO 40 mg BID DAVID Administration Furosemide 40 mg 04/11/19 08:00 04/12/19 12:12 Lasix PO 40 mg QDAC DAVID Administration Heparin Sodium (Porcine) 5,000 unit 04/10/19 22:00 04/12/19 22:33 Heparin SUB-Q 5,000 unit Q12HR DAVID Administration Heparin Sodium (Porcine) 5,000 unit 04/11/19 06:07 04/11/19 15:59 Heparin IV 5,000 unit LAUREN PRN Administration hemodialysis Hydralazine HCl 50 mg 04/12/19 20:00 04/12/19 21:04 Apresoline PO 50 mg TID DAVID Administration Levofloxacin/Dextrose 500 mg in 100 mls @ 100 mls/hr 04/13/20 10:00 Levaquin 500mg/100ml IV Q48HR DAVID Sodium Chloride 100 mls @ 999 mls/hr 04/12/19 11:40 Nacl 0.9% IV LAUREN PRN Hypotension Levetiracetam 750 mg 04/10/19 22:00 04/12/19 22:33 Keppra PO 750 mg BID DAVID Administration Multivit/Ca Carb/B Cmplx/FA/Prenat 1 cap 04/11/19 10:00 04/12/19 12:12 Renal Caps PO 1 cap QDAY DAVID Administration Ondansetron HCl 4 mg 04/10/19 11:55 04/13/19 05:53 Zofran IV 4 mg Q8H PRN Administration Nausea And Vomiting Pravastatin Sodium 40 mg 04/10/19 22:00 04/12/19 22:33 Pravachol PO 40 mg QHS DAVID Administration Sodium Bicarbonate 650 mg 04/10/19 14:00 04/12/19 21:05 Sodium Bicarbonate PO 650 mg TID DAVID Administration Sodium Chloride 10 ml 04/10/19 22:00 04/12/19 22:35 Sodium Chloride Flush Syringe 10 Ml IV 10 ml BID DAVID Administration Sodium Chloride 10 ml 04/10/19 11:53 Sodium Chloride Flush Syringe 10 Ml IV PRN PRN LINE FLUSH
[2019-04-13] MEDS: PEPCID PO SCH ×2 (08:55→21:32)
[2019-04-13] MEDS: KEPPRA PO SCH ×2 (09:13→21:33)
[2019-04-13] MEDS: PLAVIX PO SCH (09:13)
[2019-04-13] MEDS: HALFPRIN EC PO SCH (09:13)
[2019-04-13] MEDS: SODIUM BICARBONATE PO SCH ×3 (09:14→21:32)
[2019-04-13] MEDS: APRESOLINE PO SCH ×3 (09:14→21:34)
[2019-04-13] MEDS: COREG PO SCH ×2 (09:15→21:33)
[2019-04-13] MEDS: SODIUM CHLORIDE FLUSH SYRINGE 10 ML IV SCH ×2 (09:16→21:35)
--- NOTE | 2019-04-13 09:24 | Progress Note ---
Subjective Interval history: Patient was seen today for follow-up on multiple renal related issues Events of this hospitalization were noted Patient is currently in maintenance hemodialysis Saturday and Saturday Interdisciplinary notes were also reviewed Vitals intake output medications were reviewed Past medical history: Reviewed Family, social history: Reviewed Allergies: Reviewed Physical examination General: No acute distress Vitals: Reviewed HEENT: Oral mucosa moist no icterus Neck: Supple no thyromegaly nodular mass or JVD Chest: Clear to auscultation anteriorly Heart: Regular rate and rhythm S1-S2 heard no S3-S4 Abdomen: Soft nontender no suprapubic masses no organomegaly Extremity: Dry skin less than 1+ edema Psych: No evidence of any agitation and aggression noted Derm: No petechial rash Assessment and plan: ESRD: Patient will continue with hemodialysis on Saturday and Saturday schedule monitor dialysis related labs Patient was seen in supervising hemodialysis as well Dialysis prescription was changed, increased dialysate sodium, ultrafiltration goal approximately 1 KG Anemia in ESRD : To monitor and follow erythropoietin and iron as required Secondary hyperparathyroidism: Periodically check phosphorus as well as PTH level Encephalopathy: [place] to be multifactorial being followed by primary team from dialysis standpoint is getting good clearance, Nutrition: Patient is to be in high-protein diet due to dialysis status Admitted with altered mental status and dementia hypokalemia leukopenia Blood cultures have been negative for last 24 hours Chest x-rayshows evidence of cardiomegaly without any infiltrates From dialysis standpoint patient's hemoglobin is 9.9 potassium 4.0 calcium 9.8, Multiple comorbidities including coronary artery disease heart failure hypertension hyperlipidemia coronary bypass graft pacemaker placement seizure disorder metabolic acidosis Prognosis: Guarded We'll continue to follow and make recommendation from renal standpoint Objective - Vital Signs Vital signs: Vital Signs - 12hr 04/12/19 04/12/19 04/13/19 22:00 22:34 02:12 Temperature 97.5 F L Pulse Rate 98 H 98 H 80 Respiratory 18 22 Rate Blood Pressure 146/87 157/88 O2 Sat by Pulse 98 97 Oximetry 04/13/19 07:43 Temperature 97.3 F L Pulse Rate 61 Respiratory 18 Rate Blood Pressure 139/79 O2 Sat by Pulse 96 Oximetry - Lab 04/12/19 05:09 04/12/19 05:09 Most recent lab results Calcium 9.8 mg/dL (8.4-10.2) 04/12/19 05:09 Magnesium 2.20 mg/dL (1.7-2.3) 04/11/19 04:53 Medications & Allergies - Medications Allergies/Adverse Reactions: Allergies No Known Allergies Allergy (Verified 02/25/19 14:44) Home Medications: Home Medications Medication Instructions Recorded Confirmed Last Taken Type Aspirin EC 81 mg PO DAILY 10/11/16 04/10/19 04/09/19 History Clopidogrel Bisulfate [Clopidogrel] 75 mg PO DAILY 10/11/16 04/10/19 04/09/19 History Famotidine 40 mg PO BID 10/11/16 04/10/19 04/09/19 History Lovastatin 40 mg PO QHS 10/11/16 04/10/19 04/09/19 History Vit D3/Folic Acid/B2/B6/B12 1 each PO DAILY 10/11/16 04/10/19 04/09/19 History [Folgard Tablet] Furosemide [Lasix TAB] 40 mg PO QDAC 04/10/19 04/10/19 04/09/19 History Sodium Bicarbonate 650 mg PO TID 04/10/19 04/10/19 04/09/19 History hydrALAZINE [Apresoline TAB] 50 mg PO QAM&QHS 04/10/19 04/10/19 04/09/19 History levETIRAcetam [Keppra TAB] 750 mg PO BID 04/10/19 04/10/19 04/09/19 History Active Medications: Generic Name Dose Route Start Last Admin Trade Name Freq PRN Reason Stop Dose Admin Acetaminophen 650 mg 04/10/19 11:53 04/12/19 16:16 Tylenol PO 650 mg Q6H PRN Administration Pain MILD(1-3)/Fever >100.5/ZIMMERMAN Acetaminophen/Hydrocodone Bitart 2 each 04/10/19 11:53 04/11/19 22:30 [place] 5/325 PO 2 each Q6H PRN Administration Pain, Moderate (4-6) Aspirin 81 mg 04/11/19 10:00 04/13/19 09:13 Halfprin Ec PO 81 mg DAILY DAVID Administration Carvedilol 25 mg 04/11/19 10:00 04/13/19 09:15 Coreg PO Not Given BID DAVID Clopidogrel Bisulfate 75 mg 04/10/19 12:00 04/13/19 09:13 Plavix PO 75 mg DAILY DAVID Administration Epoetin Hero 10,000 unit 04/11/19 06:07 04/11/19 15:15 Procrit IV 10,000 unit LAUREN PRN Administration hemodialysis Famotidine 40 mg 04/10/19 22:00 04/12/19 22:33 Pepcid PO 40 mg BID DAVID Administration Furosemide 40 mg 04/11/19 08:00 04/12/19 12:12 Lasix PO 40 mg QDAC DAVID Administration Heparin Sodium (Porcine) 5,000 unit 04/10/19 22:00 04/12/19 22:33 Heparin SUB-Q 5,000 unit Q12HR DAVID Administration Heparin Sodium (Porcine) 5,000 unit 04/11/19 06:07 04/11/19 15:59 Heparin IV 5,000 unit LAUREN PRN Administration hemodialysis Hydralazine HCl 50 mg 04/12/19 20:00 04/13/19 09:14 Apresoline PO Not Given TID DAVID Levofloxacin/Dextrose 500 mg in 100 mls @ 100 mls/hr 04/13/20 10:00 Levaquin 500mg/100ml IV Q48HR DAVID Sodium Chloride 100 mls @ 999 mls/hr 04/12/19 11:40 Nacl 0.9% IV LAUREN PRN Hypotension Levetiracetam 750 mg 04/10/19 22:00 04/13/19 09:13 Keppra PO 750 mg BID DAVID Administration Multivit/Ca Carb/B Cmplx/FA/Prenat 1 cap 04/11/19 10:00 04/12/19 12:12 Renal Caps PO 1 cap QDAY DAVID Administration Ondansetron HCl 4 mg 04/10/19 11:55 04/13/19 05:53 Zofran IV 4 mg Q8H PRN Administration Nausea And Vomiting Pravastatin Sodium 40 mg 04/10/19 22:00 04/12/19 22:33 Pravachol PO 40 mg QHS DAVID Administration Sodium Bicarbonate 650 mg 04/10/19 14:00 04/13/19 09:14 Sodium Bicarbonate PO 650 mg TID DAVID Administration Sodium Chloride 10 ml 04/10/19 22:00 04/13/19 09:16 Sodium Chloride Flush Syringe 10 Ml IV 10 ml BID DAVID Administration Sodium Chloride 10 ml 04/10/19 11:53 Sodium Chloride Flush Syringe 10 Ml IV PRN PRN LINE FLUSH
[2019-04-13] MEDS: PROCRIT IV PRN (12:03)
[2019-04-13] MEDS: LASIX PO SCH (14:05)
[2019-04-13] MEDS: HEPARIN SUB-Q SCH ×2 (14:05→21:35)
[2019-04-13] MEDS: Renal Caps PO SCH (14:06)
--- NOTE | 2019-04-13 14:54 | Consultation ---
History of Present Illness - Reason for Consult Consult date: 04/13/19 Reason for consult: Mental Health Evaluation Requesting physician: CHELITA TREJO - Chief Complaint Chief complaint: 'Hello" - History of Present Psychiatric Illness 83 y.o. AA male who presented to the Er for AMS. Today the patient was calm, but confused during the assessment. He was able to state his , but he could not recall any numbers within 5 mins. Per collateral information from his Mrs Charlene Dove who was at the bedside, she stated that her 's behavior changed night prior to going to dialysis Saturday morning. She stated that her is independent and do not need any assistance with his ADL's. She stated that her isn't at his baseline. She denies that her has a mental health dx. Per the patient's assigned nurse, she stated that patient did not sleep well last night. The patient denies Si/HI's. Medications and Allergies Allergies Allergy/AdvReac Type Severity Reaction Status Date / Time No Known Allergies Allergy Verified 02/25/19 14:44 Home Medications Medication Instructions Recorded Confirmed Last Taken Type Aspirin EC 81 mg PO DAILY 10/11/16 04/10/19 04/09/19 History Clopidogrel Bisulfate [Clopidogrel] 75 mg PO DAILY 10/11/16 04/10/19 04/09/19 History Famotidine 40 mg PO BID 10/11/16 04/10/19 04/09/19 History Lovastatin 40 mg PO QHS 10/11/16 04/10/19 04/09/19 History Vit D3/Folic Acid/B2/B6/B12 1 each PO DAILY 10/11/16 04/10/19 04/09/19 History [Folgard Tablet] Furosemide [Lasix TAB] 40 mg PO QDAC 04/10/19 04/10/19 04/09/19 History Sodium Bicarbonate 650 mg PO TID 04/10/19 04/10/19 04/09/19 History hydrALAZINE [Apresoline TAB] 50 mg PO QAM&QHS 04/10/19 04/10/19 04/09/19 History levETIRAcetam [Keppra TAB] 750 mg PO BID 04/10/19 04/10/19 04/09/19 History Active Meds: Active Medications Acetaminophen (Tylenol) 650 mg PO Q6H PRN PRN Reason: Pain MILD(1-3)/Fever >100.5/ZIMMERMAN Last Admin: 04/12/19 16:16 Dose: 650 mg Documented by: Acetaminophen/Hydrocodone Bitart ([place] 5/325) 2 each PO Q6H PRN PRN Reason: Pain, Moderate (4-6) Last Admin: 04/11/19 22:30 Dose: 2 each Documented by: Aspirin (Halfprin Ec) 81 mg PO DAILY REPLACED BY [facility] Last Admin: 04/13/19 09:13 Dose: 81 mg Documented by: Carvedilol (Coreg) 25 mg PO BID REPLACED BY [facility] Last Admin: 04/13/19 09:15 Dose: Not Given Documented by: Clopidogrel Bisulfate (Plavix) 75 mg PO DAILY REPLACED BY [facility] Last Admin: 04/13/19 09:13 Dose: 75 mg Documented by: Epoetin Hero (Procrit) 10,000 unit IV LAUREN PRN PRN Reason: hemodialysis Last Admin: 04/13/19 12:03 Dose: 10,000 unit Documented by: Famotidine (Pepcid) 40 mg PO BID REPLACED BY [facility] Last Admin: 04/12/19 22:33 Dose: 40 mg Documented by: Furosemide (Lasix) 40 mg PO QDAC REPLACED BY [facility] Last Admin: 04/13/19 14:05 Dose: 40 mg Documented by: Heparin Sodium (Porcine) (Heparin) 5,000 unit SUB-Q Q12HR REPLACED BY [facility] Last Admin: 04/13/19 14:05 Dose: 5,000 unit Documented by: Heparin Sodium (Porcine) (Heparin) 5,000 unit IV LAUREN PRN PRN Reason: hemodialysis Last Admin: 04/11/19 15:59 Dose: 5,000 unit Documented by: Hydralazine HCl (Apresoline) 50 mg PO TID REPLACED BY [facility] Last Admin: 04/13/19 14:06 Dose: Not Given Documented by: Levofloxacin/Dextrose (Levaquin 500mg/100ml) 500 mg in 100 mls @ 100 mls/hr IV Q48HR REPLACED BY [facility] Sodium Chloride (Nacl 0.9%) 100 mls @ 999 mls/hr IV LAUREN PRN PRN Reason: Hypotension Levetiracetam (Keppra) 750 mg PO BID REPLACED BY [facility] Last Admin: 04/13/19 09:13 Dose: 750 mg Documented by: Multivit/Ca Carb/B Cmplx/FA/Prenat (Renal Caps) 1 cap PO QDAY REPLACED BY [facility] Last Admin: 04/13/19 14:06 Dose: 1 cap Documented by: Ondansetron HCl (Zofran) 4 mg IV Q8H PRN PRN Reason: Nausea And Vomiting Last Admin: 04/13/19 05:53 Dose: 4 mg Documented by: Pravastatin Sodium (Pravachol) 40 mg PO QHS REPLACED BY [facility] Last Admin: 04/12/19 22:33 Dose: 40 mg Documented by: Sodium Bicarbonate (Sodium Bicarbonate) 650 mg PO TID REPLACED BY [facility] Last Admin: 04/13/19 14:05 Dose: 650 mg Documented by: Sodium Chloride (Sodium Chloride Flush Syringe 10 Ml) 10 ml IV BID REPLACED BY [facility] Last Admin: 04/13/19 09:16 Dose: 10 ml Documented by: Sodium Chloride (Sodium Chloride Flush Syringe 10 Ml) 10 ml IV PRN PRN PRN Reason: LINE FLUSH Past psychiatric history - Past Medical History Past Medical History: ESRD Past Surgical History: No surgical history - past Psychiatric treatment and history psychiatric treatment history: Per coollateral information from the patient , the patient does not have a psy hx nor a fam psu hx. - Social History Social history: lives with family Mental Status Exam - Vital signs Last Vital Signs Temp 97.5 F L 04/13/19 13:35 Pulse 64 04/13/19 13:35 Resp 18 04/13/19 13:35 BP 115/75 04/13/19 13:35 Pulse Ox 99 04/13/19 13:35 - Exam Narrative exam: MSE: Appearance: calm Behavior: regular eye contact Speech: regular rate and tone Mood: "okay" Affect: congruent to mood Thought Process: confused Thought Content: denies SI/HI's and AVH's Motor Activity: sitting up in bed, in restraints Cognition: A/O x2 Insight: limited Judgment: poor Results Result Diagrams: 04/12/19 05:09 04/12/19 05:09 Abnormal lab results 04/12/19 Range/Units 23:50 POC Glucose 124 H (70-105) All other labs normal. Assessment and Plan Assessment and plan: Impression: Delirium. Today the patient was calm, but confused during the assessment. The patient was in restraints. Cr 3.2. Medical: Acute Metabolic Encephalopathy per the hospitalist Recommendation/Plan Start Melatonin 5 mg PO HS for sleep. Recommend Delirium precautions below: 1. Frequently reorient patient and involve him/her in their care (simple explanations of procedures, tests, medications). 2. Lights on and shades open during daytime hours. 3. Write date and goals of care in a visible place. 4. Try to avoid unnecessary interruptions to sleep during nighttime hours. 5. Obtain glasses, hearing aids from home if patient uses these at baseline. 6. Avoid medications that may exacerbate delirium (especially narcotics, benzodiazepines, barbiturates, ambien, lunesta, and medications with excessive anticholinergic propert 7. Recommend Haldol 5 mg IM Q6hrs PRN for acute psychosis. Will staff with Dr Ingris Glez.
[2019-04-13] MEDS ORDERED: NACL 0.9 (PRIMING MACHINE ONLY DIALYSIS) MC ONE (18:03)
[2019-04-13] MEDS: PRAVACHOL PO SCH (21:34)
[2019-04-13] MEDS: MELATONIN PO SCH (21:35)
[2019-04-14] MEDS: APRESOLINE PO SCH ×3 (08:28→21:24)
[2019-04-14] MEDS: SODIUM BICARBONATE PO SCH ×3 (08:28→21:22)
[2019-04-14] MEDS: LASIX PO SCH (08:28)
--- NOTE | 2019-04-14 09:02 | Progress Note ---
Subjective Interval history: Patient was seen today for follow-up on multiple renal related issues Events of this hospitalization were noted He appears to be doing much better alert awake once to get up and eat Patient is currently in maintenance hemodialysis Saturday and Saturday Patient tolerated hemodialysis treatment fairly well yesterday Interdisciplinary notes were also reviewed Vitals intake output medications were reviewed Past medical history: Reviewed Family, social history: Reviewed Allergies: Reviewed Physical examination General: No acute distress Vitals: Reviewed HEENT: Oral mucosa moist no icterus Neck: Supple no thyromegaly nodular mass or JVD Central venous catheter site: Unremarkable Chest: Clear to auscultation anteriorly Heart: Regular rate and rhythm S1-S2 heard no S3-S4 Abdomen: Soft nontender no suprapubic masses no organomegaly Extremity: Dry skin less than 1+ edema Psych: No evidence of any agitation and aggression noted Derm: No petechial rash Assessment and plan: ESRD: Patient will continue with hemodialysis on Saturday and Saturday schedule monitor dialysis related labs Patient tolerated dialysis fairly well yesterday, from dialysis perspective his last hemoglobin is 9.9 better, platelet count 1 54,000, potassium 4.0 creatinine 3.2B UN 14 calcium is better 9.8 Patient is currently status post psychiatry evaluation Encephalopathy: Multifactorial, appears to have remarkably improved he is alert awake once to eat and get out of the bed Anemia and end-stage renal disease disease: To monitor and follow erythropoietin and iron as required Secondary hyperparathyroidism: Periodically check phosphorus as well as PTH level Nutrition: Patient is to be in high-protein diet due to dialysis status Admitted with altered mental status and dementia hypokalemia leukopenia Blood cultures have been negative for last 24 hours Chest x-rayshows evidence of cardiomegaly without any infiltrates From dialysis standpoint patient's hemoglobin is 9.9 potassium 4.0 calcium 9.8, Multiple comorbidities including coronary artery disease heart failure hypertension hyperlipidemia coronary bypass graft pacemaker placement seizure disorder metabolic acidosis Prognosis: Guarded We'll continue to follow and make recommendation from renal standpoint Objective - Vital Signs Vital signs: Vital Signs - 12hr 04/13/19 04/14/19 04/14/19 21:33 01:52 01:55 Temperature 97.5 F L Pulse Rate 67 86 Respiratory 18 Rate Blood Pressure 140/82 125/72 O2 Sat by Pulse 100 Oximetry 04/14/19 07:53 Temperature 96.0 F L Pulse Rate 57 L Respiratory 18 Rate Blood Pressure 136/77 O2 Sat by Pulse 92 Oximetry - Lab 04/12/19 05:09 04/12/19 05:09 Most recent lab results Calcium 9.8 mg/dL (8.4-10.2) 04/12/19 05:09 Magnesium 2.20 mg/dL (1.7-2.3) 04/11/19 04:53 Medications & Allergies - Medications Allergies/Adverse Reactions: Allergies No Known Allergies Allergy (Verified 02/25/19 14:44) Home Medications: Home Medications Medication Instructions Recorded Confirmed Last Taken Type Aspirin EC 81 mg PO DAILY 10/11/16 04/10/19 04/09/19 History Clopidogrel Bisulfate [Clopidogrel] 75 mg PO DAILY 10/11/16 04/10/19 04/09/19 History Famotidine 40 mg PO BID 10/11/16 04/10/19 04/09/19 History Lovastatin 40 mg PO QHS 10/11/16 04/10/19 04/09/19 History Vit D3/Folic Acid/B2/B6/B12 1 each PO DAILY 10/11/16 04/10/19 04/09/19 History [Folgard Tablet] Furosemide [Lasix TAB] 40 mg PO QDAC 04/10/19 04/10/19 04/09/19 History Sodium Bicarbonate 650 mg PO TID 04/10/19 04/10/19 04/09/19 History hydrALAZINE [Apresoline TAB] 50 mg PO QAM&QHS 04/10/19 04/10/19 04/09/19 History levETIRAcetam [Keppra TAB] 750 mg PO BID 04/10/19 04/10/19 04/09/19 History Carvedilol [Coreg] 25 mg PO BID #60 tablet 04/15/19 Unknown Rx Folic Acid/Vit B Comp W-C [Renal 1 cap PO QDAY #30 capsule 04/15/19 Unknown Rx Caps] Melatonin [Melatonin 5MG TAB] 5 mg PO QHS #30 tablet 04/15/19 Unknown Rx Active Medications: Generic Name Dose Route Start Last Admin Trade Name Freq PRN Reason Stop Dose Admin Acetaminophen 650 mg 04/10/19 11:53 04/12/19 16:16 Tylenol PO 650 mg Q6H PRN Administration Pain MILD(1-3)/Fever >100.5/ZIMMERMAN Acetaminophen/Hydrocodone Bitart 2 each 04/10/19 11:53 04/11/19 22:30 [place] 5/325 PO 2 each Q6H PRN Administration Pain, Moderate (4-6) Aspirin 81 mg 04/11/19 10:00 04/13/19 09:13 Halfprin Ec PO 81 mg DAILY DAVID Administration Carvedilol 25 mg 04/11/19 10:00 04/13/19 21:33 Coreg PO 25 mg BID DAVID Administration Clopidogrel Bisulfate 75 mg 04/10/19 12:00 04/13/19 09:13 Plavix PO 75 mg DAILY DAVID Administration Epoetin Hero 10,000 unit 04/11/19 06:07 04/13/19 12:03 Procrit IV 10,000 unit LAUREN PRN Administration hemodialysis Famotidine 40 mg 04/10/19 22:00 04/13/19 21:32 Pepcid PO 40 mg BID DAVID Administration Furosemide 40 mg 04/11/19 08:00 04/14/19 08:28 Lasix PO 40 mg QDAC DAVID Administration Heparin Sodium (Porcine) 5,000 unit 04/10/19 22:00 04/13/19 21:35 Heparin SUB-Q 5,000 unit Q12HR DAVID Administration Heparin Sodium (Porcine) 5,000 unit 04/11/19 06:07 04/11/19 15:59 Heparin IV 5,000 unit LAUREN PRN Administration hemodialysis Hydralazine HCl 50 mg 04/12/19 20:00 04/14/19 08:28 Apresoline PO 50 mg TID DAVID Administration Levofloxacin/Dextrose 500 mg in 100 mls @ 100 mls/hr 04/13/20 10:00 Levaquin 500mg/100ml IV Q48HR DAVID Sodium Chloride 100 mls @ 999 mls/hr 04/12/19 11:40 Nacl 0.9% IV LAUREN PRN Hypotension Levetiracetam 750 mg 04/10/19 22:00 04/13/19 21:33 Keppra PO 750 mg BID DAVID Administration Melatonin 5 mg 04/13/19 22:00 04/13/19 21:35 Melatonin PO 5 mg QHS DAVID Administration Multivit/Ca Carb/B Cmplx/FA/Prenat 1 cap 04/11/19 10:00 04/13/19 14:06 Renal Caps PO 1 cap QDAY DAVID Administration Ondansetron HCl 4 mg 04/10/19 11:55 04/13/19 05:53 Zofran IV 4 mg Q8H PRN Administration Nausea And Vomiting Pravastatin Sodium 40 mg 04/10/19 22:00 04/13/19 21:34 Pravachol PO 40 mg QHS DAVID Administration Sodium Bicarbonate 650 mg 04/10/19 14:00 04/14/19 08:28 Sodium Bicarbonate PO 650 mg TID DAVID Administration Sodium Chloride 10 ml 04/10/19 22:00 04/13/19 21:35 Sodium Chloride Flush Syringe 10 Ml IV 10 ml BID DAVID Administration Sodium Chloride 10 ml 04/10/19 11:53 Sodium Chloride Flush Syringe 10 Ml IV PRN PRN LINE FLUSH
--- NOTE | 2019-04-14 09:12 | Progress Note ---
Subjective - Reason for Consult Consult date: 04/14/19 Reason for consult: Psychiatry Follow-up - Chief Complaint Chief complaint: i am doing okay" 83 y.o. AA male who presented to the Er for AMS. Today the patient was calm, but still confused during the assessment His answers to most questions were not logical. Per the staff, the patient slept well last night with no behavioral disturbances overnight. No gestures of SI/HI's. Mental Status Exam - Vital signs Last Vital Signs Temp 96.0 F L 04/14/19 07:53 Pulse 57 L 04/14/19 07:53 Resp 18 04/14/19 07:53 BP 136/77 04/14/19 07:53 Pulse Ox 92 04/14/19 07:53 - Exam Narrative exam: MSE: Appearance: calm Behavior: regular eye contact Speech: regular rate and tone Mood: "okay" Affect: congruent to mood Thought Process: still confused Thought Content: no gestures of SI/HI's Motor Activity: sitting up in bed, in wrist restraints Cognition: A/O x2 Insight: limited Judgment: poor Assessment and Plan Impression: Delirium. Today the patient was calm, but still confused during the assessment. The patient was in wrist restraints. Cr 3.2. Medical: Acute Metabolic Encephalopathy per the hospitalist Recommendation/Plan Continue Melatonin 5 mg PO HS for sleep. Will continue to follow the patient. Recommend Delirium precautions below: 1. Frequently reorient patient and involve him/her in their care (simple explanations of procedures, tests, medications). 2. Lights on and shades open during daytime hours. 3. Write date and goals of care in a visible place. 4. Try to avoid unnecessary interruptions to sleep during nighttime hours. 5. Obtain glasses, hearing aids from home if patient uses these at baseline. 6. Avoid medications that may exacerbate delirium (especially narcotics, benzodiazepines, barbiturates, ambien, lunesta, and medications with excessive anticholinergic property). 7. Recommend Haldol 5 mg IM Q6hrs PRN for acute psychosis. Will staff with Dr Ingris Glez.
[2019-04-14] MEDS: KEPPRA PO SCH ×2 (10:26→21:22)
[2019-04-14] MEDS: COREG PO SCH ×2 (10:26→21:24)
[2019-04-14] MEDS: PEPCID PO SCH ×2 (10:27→21:23)
[2019-04-14] MEDS: Renal Caps PO SCH (10:27)
[2019-04-14] MEDS: PLAVIX PO SCH (10:27)
[2019-04-14] MEDS: HALFPRIN EC PO SCH (10:27)
[2019-04-14] MEDS: SODIUM CHLORIDE FLUSH SYRINGE 10 ML IV SCH ×2 (10:27→21:25)
[2019-04-14] MEDS: HEPARIN SUB-Q SCH ×2 (10:28→21:22)
[2019-04-14] MEDS: ZOFRAN IV PRN (21:22)
[2019-04-14] MEDS: MELATONIN PO SCH (21:23)
[2019-04-14] MEDS: PRAVACHOL PO SCH (21:23)
[2019-04-15] MEDS: LASIX PO SCH (08:11)
[2019-04-15] MEDS: APRESOLINE PO SCH ×2 (08:11→14:05)
[2019-04-15] MEDS: SODIUM BICARBONATE PO SCH ×2 (08:11→14:05)
[2019-04-15] MEDS: Renal Caps PO SCH (09:18)
[2019-04-15] MEDS: PEPCID PO SCH (09:18)
[2019-04-15] MEDS: SODIUM CHLORIDE FLUSH SYRINGE 10 ML IV SCH (09:18)
[2019-04-15] MEDS: KEPPRA PO SCH (09:18)
[2019-04-15] MEDS: HEPARIN SUB-Q SCH (09:18)
[2019-04-15] MEDS: PLAVIX PO SCH (09:18)
[2019-04-15] MEDS: HALFPRIN EC PO SCH (09:18)
[2019-04-15] MEDS: COREG PO SCH (09:26)
--- NOTE | 2019-04-15 10:26 | Progress Note ---
Hospitalist Physical - Constitutional Vitals: Temp Pulse Resp BP Pulse Ox 98.0 F 73 20 131/69 99 04/15/19 07:53 04/15/19 07:53 04/15/19 07:53 04/15/19 07:53 04/15/19 07:53 General appearance: Present: no acute distress, other (permcath noted on RT chest) Results - Labs CBC & Chem 7: 04/12/19 05:09 04/12/19 05:09 Labs: Laboratory Last Values WBC 2.3 K/mm3 (4.5-11.0) L 04/12/19 05:09 RBC 3.41 M/mm3 (3.65-5.03) L 04/12/19 05:09 Hgb 9.9 gm/dl (11.8-15.2) L 04/12/19 05:09 Hct 29.8 % (35.5-45.6) L 04/12/19 05:09 MCV 88 fl (84-94) 04/12/19 05:09 MCH 29 pg (28-32) 04/12/19 05:09 MCHC 33 % (32-34) 04/12/19 05:09 RDW 16.4 % (13.2-15.2) H 04/12/19 05:09 Plt Count 154 K/mm3 (140-440) 04/12/19 05:09 Lymph % (Auto) 37.2 % (13.4-35.0) H 04/10/19 09:01 [place] % (Auto) 14.6 % (0.0-7.3) H 04/10/19 09:01 Eos % (Auto) 9.0 % (0.0-4.3) H 04/10/19 09:01 Baso % (Auto) 0.6 % (0.0-1.8) 04/10/19 09:01 Lymph # 1.3 K/mm3 (1.2-5.4) 04/10/19 09:01 [place] # 0.5 K/mm3 (0.0-0.8) 04/10/19 09:01 Eos # 0.3 K/mm3 (0.0-0.4) 04/10/19 09:01 Baso # 0.0 K/mm3 (0.0-0.1) 04/10/19 09:01 Add Manual Diff Complete 04/12/19 05:09 Total Counted 100 04/12/19 05:09 Seg Neutrophils % 38.6 % (40.0-70.0) L 04/10/19 09:01 Seg Neuts % (Manual) 44.0 % (40.0-70.0) 04/12/19 05:09 0 % 04/12/19 05:09 35.0 % (13.4-35.0) 04/12/19 05:09 Reactive Lymphs % (Man) 0 % 04/12/19 05:09 8.0 % (0.0-7.3) H 04/12/19 05:09 13.0 % (0.0-4.3) H 04/12/19 05:09 0 % (0.0-1.8) 04/12/19 05:09 0 % 04/12/19 05:09 0 % 04/12/19 05:09 0 % 04/12/19 05:09 0 % 04/12/19 05:09 Nucleated RBC % Not Reportable 04/12/19 05:09 Seg Neutrophils # 1.3 K/mm3 (1.8-7.7) L 04/10/19 09:01 Seg Neutrophils # Man 1.0 K/mm3 (1.8-7.7) L 04/12/19 05:09 Band Neutrophils # 0.0 K/mm3 04/12/19 05:09 0.8 K/mm3 (1.2-5.4) L 04/12/19 05:09 Abs React Lymphs (Man) 0.0 K/mm3 04/12/19 05:09 0.2 K/mm3 (0.0-0.8) 04/12/19 05:09 0.3 K/mm3 (0.0-0.4) 04/12/19 05:09 0.0 K/mm3 (0.0-0.1) 04/12/19 05:09 0.0 K/mm3 04/12/19 05:09 0.0 K/mm3 04/12/19 05:09 0.0 K/mm3 04/12/19 05:09 Blast Cells # 0.0 K/mm3 04/12/19 05:09 WBC Morphology Not Reportable 04/12/19 05:09 Hypersegmented Neuts Not Reportable 04/12/19 05:09 Hyposegmented Neuts Not Reportable 04/12/19 05:09 Hypogranular Neuts Not Reportable 04/12/19 05:09 Not Reportable 04/12/19 05:09 Not Reportable 04/12/19 05:09 Not Reportable 04/12/19 05:09 Not Reportable 04/12/19 05:09 Not Reportable 04/12/19 05:09 Not Reportable 04/12/19 05:09 Consistent w auto 04/12/19 05:09 Not Reportable 04/12/19 05:09 Plt Clumps, EDTA Not Reportable 04/12/19 05:09 Not Reportable 04/12/19 05:09 Not Reportable 04/12/19 05:09 Not Reportable 04/12/19 05:09 Plt Morphology Comment Not Reportable 04/12/19 05:09 RBC Morphology Not Reportable 04/12/19 05:09 Dimorphic RBCs Not Reportable 04/12/19 05:09 Not Reportable 04/12/19 05:09 Not Reportable 04/12/19 05:09 Few 04/12/19 05:09 Few 04/12/19 05:09 Not Reportable 04/12/19 05:09 Not Reportable 04/12/19 05:09 Not Reportable 04/12/19 05:09 Not Reportable 04/12/19 05:09 Not Reportable 04/12/19 05:09 Not Reportable 04/12/19 05:09 Not Reportable 04/12/19 05:09 Few 04/12/19 05:09 Not Reportable 04/12/19 05:09 Not Reportable 04/12/19 05:09 Not Reportable 04/12/19 05:09 Not Reportable 04/12/19 05:09 Not Reportable 04/12/19 05:09 Not Reportable 04/12/19 05:09 Not Reportable 04/12/19 05:09 Acanthocytes (Spur) Not Reportable 04/12/19 05:09 Rouleaux Not Reportable 04/12/19 05:09 Not Reportable 04/12/19 05:09 Not Reportable 04/12/19 05:09 Not Reportable 04/12/19 05:09 Not Reportable 04/12/19 05:09 Hem Pathologist Commnt No 04/12/19 05:09 PT 13.8 Sec. (12.2-14.9) 04/10/19 09:01 INR 1.09 (0.87-1.13) 04/10/19 09:01 APTT 104.0 Sec. (24.2-36.6) H* 04/10/19 09:01 VBG pH 7.547 (7.320-7.420) H 04/10/19 09:01 Sodium 136 mmol/L (137-145) L 04/12/19 05:09 Potassium 4.0 mmol/L (3.6-5.0) 04/12/19 05:09 Chloride 96.8 mmol/L (98-107) L 04/12/19 05:09 Carbon Dioxide 26 mmol/L (22-30) 04/12/19 05:09 17 mmol/L 04/12/19 05:09 BUN 14 mg/dL (9-20) 04/12/19 05:09 3.2 mg/dL (0.8-1.5) H 04/12/19 05:09 Estimated GFR 23 ml/min 04/12/19 05:09 4 % 04/12/19 05:09 Glucose 107 mg/dL (75-100) H 04/12/19 05:09 POC Glucose 96 (70-105) 04/15/19 05:52 Lactic Acid 0.70 mmol/L (0.7-2.0) 04/11/19 13:07 Calcium 9.8 mg/dL (8.4-10.2) 04/12/19 05:09 Magnesium 2.20 mg/dL (1.7-2.3) 04/11/19 04:53 0.50 mg/dL (0.1-1.2) 04/10/19 09:01 AST 25 units/L (5-40) 04/10/19 09:01 ALT 11 units/L (7-56) 04/10/19 09:01 64 units/L (35-129) 04/10/19 09:01 15.0 umol/L (25-60) L 04/10/19 09:01 541 units/L (55-170) H 04/10/19 09:01 CK-MB (CK-2) 3.4 ng/mL (0.0-4.0) 04/10/19 09:01 CK-MB (CK-2) Rel Index 0.6 (0-4) 04/10/19 09:01 0.100 ng/mL (0.00-0.029) H 04/10/19 16:28 7.5 g/dL (6.3-8.2) 04/10/19 09:01 4.0 g/dL (3.9-5) 04/10/19 09:01 1.1 % 04/10/19 09:01 Triglycerides 44 mg/dL (2-149) 04/10/19 09:01 Cholesterol 128 mg/dL (50-199) 04/10/19 09:01 66 mg/dL (50-130) 04/10/19 09:01 65 mg/dL (40-59) H 04/10/19 09:01 1.96 % 04/10/19 09:01 17 units/L (13-60) 04/10/19 09:01 TSH 1.580 mlU/mL (0.270-4.200) 04/10/19 09:01 Free T4 1.49 ng/dL (0.76-1.46) H 04/10/19 09:01 9.4 ug/dL (4.0-12.0) 04/12/19 05:09 Yellow (Yellow) 04/12/19 06:06 Clear (Clear) 04/12/19 06:06 8.0 (5.0-7.0) H 04/12/19 06:06 Ur Specific [place] 1.006 (1.003-1.030) 04/12/19 06:06 100 mg/dl mg/dL (Negative) 04/12/19 06:06 Neg mg/dL (Negative) 04/12/19 06:06 Neg mg/dL (Negative) 04/12/19 06:06 Neg (Negative) 04/12/19 06:06 Neg (Negative) 04/12/19 06:06 Neg (Negative) 04/12/19 06:06 < 2.0 mg/dL (<2.0) 04/12/19 06:06 Ur Leukocyte Esterase Neg (Negative) 04/12/19 06:06 1.0 /HPF (0.0-6.0) 04/12/19 06:06 3.0 /HPF (0.0-6.0) 04/12/19 06:06 U Epithel Cells (Auto) 1.0 /HPF (0-13.0) 04/12/19 06:06 Hepatitis A IgM Ab Non-reactive (NonReactive) 04/11/19 12:30 Hep Bs Antigen Non-reactive (Negative) 04/11/19 12:30 Hep B Core IgM Ab Non-reactive (NonReactive) 04/11/19 12:30 Non-reactive (NonReactive) 04/11/19 12:30 Active Medications - Current Medications Current Medications: Generic Name Dose Route Start Last Admin Trade Name Freq PRN Reason Stop Dose Admin Acetaminophen 650 mg 04/10/19 11:53 04/12/19 16:16 Tylenol PO 650 mg Q6H PRN Administration Pain MILD(1-3)/Fever >100.5/ZIMMERMAN Acetaminophen/Hydrocodone Bitart 2 each 04/10/19 11:53 04/11/19 22:30 [place] 5/325 PO 2 each Q6H PRN Administration Pain, Moderate (4-6) Aspirin 81 mg 04/11/19 10:00 04/15/19 09:18 Halfprin Ec PO 81 mg DAILY DAVID Administration Carvedilol 25 mg 04/11/19 10:00 04/15/19 09:26 Coreg PO Not Given BID [facility] Clopidogrel Bisulfate 75 mg 04/10/19 12:00 04/15/19 09:18 Plavix PO 75 mg DAILY DAVID Administration Epoetin Hero 10,000 unit 04/11/19 06:07 04/13/19 12:03 Procrit IV 10,000 unit LAUREN PRN Administration hemodialysis Famotidine 40 mg 04/10/19 22:00 04/15/19 09:18 Pepcid PO 40 mg BID DAVID Administration Furosemide 40 mg 04/11/19 08:00 04/15/19 08:11 Lasix PO 40 mg QDAC DAVID Administration Heparin Sodium (Porcine) 5,000 unit 04/10/19 22:00 04/15/19 09:18 Heparin SUB-Q 5,000 unit Q12HR DAVID Administration Heparin Sodium (Porcine) 5,000 unit 04/11/19 06:07 04/11/19 15:59 Heparin IV 5,000 unit LAUREN PRN Administration hemodialysis Hydralazine HCl 50 mg 04/12/19 20:00 04/15/19 08:11 Apresoline PO 50 mg TID DAVID Administration Levofloxacin/Dextrose 500 mg in 100 mls @ 100 mls/hr 04/13/20 10:00 Levaquin 500mg/100ml IV Q48HR DAVID Sodium Chloride 100 mls @ 999 mls/hr 04/12/19 11:40 Nacl 0.9% IV LAUREN PRN Hypotension Levetiracetam 750 mg 04/10/19 22:00 04/15/19 09:18 Keppra PO 750 mg BID DAVID Administration Melatonin 5 mg 04/13/19 22:00 04/14/19 21:23 Melatonin PO 5 mg QHS DAVID Administration Multivit/Ca Carb/B Cmplx/FA/Prenat 1 cap 04/11/19 10:00 04/15/19 09:18 Renal Caps PO 1 cap QDAY DAVID Administration Ondansetron HCl 4 mg 04/10/19 11:55 04/14/19 21:22 Zofran IV 4 mg Q8H PRN Administration Nausea And Vomiting Pravastatin Sodium 40 mg 04/10/19 22:00 04/14/19 21:23 Pravachol PO 40 mg QHS DAVID Administration Sodium Bicarbonate 650 mg 04/10/19 14:00 04/15/19 08:11 Sodium Bicarbonate PO 650 mg TID DAVID Administration Sodium Chloride 10 ml 04/10/19 22:00 04/15/19 09:18 Sodium Chloride Flush Syringe 10 Ml IV 10 ml BID DAVID Administration Sodium Chloride 10 ml 04/10/19 11:53 Sodium Chloride Flush Syringe 10 Ml IV PRN PRN LINE FLUSH
--- NOTE | 2019-04-15 10:29 | Discharge Summary ---
Providers - Providers Date of Admission: 04/10/19 10:11 Attending physician: CHELITA TREJO MD 04/10/19 15:58 Consult to Physician [CONS] Urgent Comment: called office/ hardik Consulting Provider: AMELIA SCHULER Physician Instructions: Reason For Exam: ESRD on HD 04/11/19 11:43 Physical Therapy Evaluation and Treat [CONS] Routine Comment: Reason For Exam: generalized weakness 04/13/19 07:38 Consult to Mental Health [CONS] Routine Reason For Exam: behavioral disturbance Place consult to:: [facility] Notified:: TRACE 04/13/19 13:30 Consult Geriatric-Psych [CONS] Routine Consulting Provider: Reason For Exam: behavioral disturbance [facility] Hospital course: 83-year-old man with history of end-stage renal disease who presented with altered mental status by his . The patient was hyper tenriism, he refused to make eye contact or follow commands at the time of admission. Past medical history includes hypertension, end-stage renal disease on dialysis, seizure disorder Acute metabolic encephalopathy Possibly due to uremia, SIRS, CT head negative, appears to be resolving SIRS On antibiotics, for possible left lower lung infiltrates. Repeat chest x-ray and obtain 2 view this time. Follow-up blood cultures, follow-up echo Chronically elevated troponin, likely due to end-stage renal disease Patient denies chest pain, follow-up echo Hypokalemia Repleted Patient's free T4 is on the upper level of normal, this is an unexpected finding, we'll obtain total T4 Hypertension Continue to optimize blood pressure medications Hyperlipidemia Continue statin DVT prophylaxis with heparin Disposition; tentative discharge tomorrow if workup is negative Disposition: [id number]/[place]-06 HOME [facility] Time spent for discharge: 33 mins Core Measure Documentation - Palliative Care Palliative Care/ Comfort Measures: Not Applicable - Core Measures Any of the following diagnoses?: none Exam - Constitutional Vitals: Temp Pulse Resp BP Pulse Ox 98.0 F 73 20 131/69 99 04/15/19 07:53 04/15/19 07:53 04/15/19 07:53 04/15/19 07:53 04/15/19 07:53 General appearance: Present: no acute distress, well-nourished - EENT Eyes: Present: PERRL ENT: hearing intact, clear oral mucosa - Neck Neck: Present: supple, normal ROM - Respiratory Respiratory effort: normal Respiratory: bilateral: CTA - Cardiovascular Heart Sounds: Present: S1 & S2. Absent: rub, click - Extremities Extremities: pulses symmetrical, No edema Peripheral Pulses: within normal limits - Abdominal General gastrointestinal: Present: soft, non-tender, non-distended, normal bowel sounds Male genitourinary: Present: normal - Integumentary Integumentary: Present: clear, warm, dry - Musculoskeletal Musculoskeletal: gait normal, strength equal bilaterally - Psychiatric Psychiatric: appropriate mood/affect, intact judgment & insight - Neurologic Neurologic: CNII-XII intact, moves all extremities Plan [facility] GYPSY [Primary Care Provider] - 3-5 Days Prescriptions: Melatonin [Melatonin 5MG TAB] 5 mg PO QHS #30 tablet Carvedilol [Coreg] 25 mg PO BID #60 tablet Folic Acid/Vit B Comp W-C [Renal Caps] 1 cap PO QDAY #30 capsule
[2019-04-15] MEDS ORDERED: NACL 0.9 (PRIMING MACHINE ONLY DIALYSIS) MC ONE (12:07)
--- NOTE | 2019-04-15 13:22 | Progress Note ---
Subjective - Reason for Consult Consult date: 04/15/19 Reason for consult: Psychiatric Follow-up Evaluation - Chief Complaint Chief complaint: "I'm alright. " Patient is an 83 y.o. AA male who presented to the emergency room for AMS. Today the patient is calm, but still confused during the assessment. Patient alert and oriented x 2. He appears less disorganized than the previous days. Provider/staff able to redirect. Per the staff, the patient slept well last night with no behavioral disturbances overnight. No gestures of SI/HI's. Mental Status Exam - Vital signs Last Vital Signs Temp 97.2 F L 04/15/19 09:53 Pulse 67 04/15/19 11:30 Resp 18 04/15/19 09:53 BP 109/64 04/15/19 11:30 Pulse Ox 99 04/15/19 07:53 - Exam Narrative exam: Mental Status Exam Appearance: calm Behavior: regular eye contact Speech: regular rate and tone Mood: "I'm alright" Affect: congruent to mood Thought Process: still confused Thought Content: no gestures of SI/HI's Motor Activity: sitting up in bed, in wrist restraints Cognition: A/O x 2 Insight: limited Judgment: poor Assessment and Plan Impression: Delirium. Today the patient is calm, but still confused during the assessment. Appears less disorganized. Alert and oriented x 2. Medical: Acute Metabolic Encephalopathy per the hospitalist Recommendation/Plan: Continue Melatonin 5 mg PO HS for sleep. Will continue to follow the patient. Recommend Delirium precautions below: 1. Frequently reorient patient and involve him/her in their care (simple explanations of procedures, tests, medications). 2. Lights on and shades open during daytime hours. 3. Write date and goals of care in a visible place. 4. Try to avoid unnecessary interruptions to sleep during nighttime hours. 5. Obtain glasses, hearing aids from home if patient uses these at baseline. 6. Avoid medications that may exacerbate delirium (especially narcotics, benzodiazepines, barbiturates, ambien, lunesta, and medications with excessive anticholinergic property). 7. Recommend Haldol 5 mg IM Q6hrs PRN for acute psychosis. Will staff with Dr. Ingris Glez.
--- NOTE | 2019-04-15 13:24 | Progress Note ---
Subjective Interval history: Patient was seen today for follow-up on multiple renal related issues He has been doing very well his much more alert awake Patient is currently in maintenance hemodialysis Saturday and Saturday Patient tolerated hemodialysis treatment fairly well yesterday Interdisciplinary notes were also reviewed Vitals intake output medications were reviewed Past medical history: Reviewed Family, social history: Reviewed Allergies: Reviewed Physical examination General: No acute distress Vitals: Reviewed HEENT: Oral mucosa moist no icterus Neck: Supple no thyromegaly nodular mass or JVD Central venous catheter site: Unremarkable Chest: Clear to auscultation anteriorly Heart: Regular rate and rhythm S1-S2 heard no S3-S4 Abdomen: Soft nontender no suprapubic masses no organomegaly Extremity: Dry skin less than 1+ edema Psych: No evidence of any agitation and aggression noted Derm: No petechial rash Assessment and plan: ESRD: Patient will continue with hemodialysis on Saturday and Saturday schedule monitor dialysis related labs Tolerating dialysis treatment fairly well Will need monitoring of dialysis related labs Encephalopathy appears to have improved Anemia and end-stage renal disease disease: To monitor and follow erythropoietin and iron as required Secondary hyperparathyroidism: Periodically check phosphorus as well as PTH level Nutrition: Patient is to be in high-protein diet due to dialysis status Admitted with altered mental status and dementia hypokalemia leukopenia Chest x-rayshows evidence of cardiomegaly without any infiltrates Multiple comorbidities including coronary artery disease heart failure hypertension hyperlipidemia coronary bypass graft pacemaker placement seizure d isorder metabolic acidosis Prognosis: Guarded Patient will need to make a follow-up appointment with the nephrology office as well as primary care physician We'll continue to follow and make recommendation from renal standpoint Objective - Vital Signs Vital signs: Vital Signs - 12hr 04/15/19 04/15/19 04/15/19 07:53 09:53 10:00 Temperature 98.0 F 97.2 F L Pulse Rate 73 62 61 Respiratory 20 18 Rate Blood Pressure 131/69 107/50 100/48 O2 Sat by Pulse 99 Oximetry 04/15/19 04/15/19 04/15/19 10:15 10:30 10:45 Temperature Pulse Rate 61 66 76 Respiratory Rate Blood Pressure 105/62 105/63 106/56 O2 Sat by Pulse Oximetry 04/15/19 04/15/19 04/15/19 11:00 11:15 11:30 Temperature Pulse Rate 72 65 67 Respiratory Rate Blood Pressure 107/66 101/59 109/64 O2 Sat by Pulse Oximetry - Lab 04/12/19 05:09 04/12/19 05:09 Most recent lab results Calcium 9.8 mg/dL (8.4-10.2) 04/12/19 05:09 Magnesium 2.20 mg/dL (1.7-2.3) 04/11/19 04:53 Medications & Allergies - Medications Allergies/Adverse Reactions: Allergies No Known Allergies Allergy (Verified 02/25/19 14:44) Home Medications: Home Medications Medication Instructions Recorded Confirmed Last Taken Type Aspirin EC 81 mg PO DAILY 10/11/16 04/10/19 04/09/19 History Clopidogrel Bisulfate [Clopidogrel] 75 mg PO DAILY 10/11/16 04/10/19 04/09/19 History Famotidine 40 mg PO BID 10/11/16 04/10/19 04/09/19 History Lovastatin 40 mg PO QHS 10/11/16 04/10/19 04/09/19 History Vit D3/Folic Acid/B2/B6/B12 1 each PO DAILY 10/11/16 04/10/19 04/09/19 History [Folgard Tablet] Furosemide [Lasix TAB] 40 mg PO QDAC 04/10/19 04/10/19 04/09/19 History Sodium Bicarbonate 650 mg PO TID 04/10/19 04/10/19 04/09/19 History hydrALAZINE [Apresoline TAB] 50 mg PO QAM&QHS 04/10/19 04/10/19 04/09/19 History levETIRAcetam [Keppra TAB] 750 mg PO BID 04/10/19 04/10/19 04/09/19 History Carvedilol [Coreg] 25 mg PO BID #60 tablet 04/15/19 Unknown Rx Folic Acid/Vit B Comp W-C [Renal 1 cap PO QDAY #30 capsule 04/15/19 Unknown Rx Caps] Melatonin [Melatonin 5MG TAB] 5 mg PO QHS #30 tablet 04/15/19 Unknown Rx Active Medications: Generic Name Dose Route Start Last Admin Trade Name Freq PRN Reason Stop Dose Admin Acetaminophen 650 mg 04/10/19 11:53 04/12/19 16:16 Tylenol PO 650 mg Q6H PRN Administration Pain MILD(1-3)/Fever >100.5/ZIMMERMAN Acetaminophen/Hydrocodone Bitart 2 each 04/10/19 11:53 04/11/19 22:30 Ora 5/325 PO 2 each Q6H PRN Administration Pain, Moderate (4-6) Aspirin 81 mg 04/11/19 10:00 04/15/19 09:18 Halfprin Ec PO 81 mg DAILY DAVID Administration Carvedilol 25 mg 04/11/19 10:00 04/15/19 09:26 Coreg PO Not Given BID DAVID Clopidogrel Bisulfate 75 mg 04/10/19 12:00 04/15/19 09:18 Plavix PO 75 mg DAILY DAVID Administration Epoetin Hero 10,000 unit 04/11/19 06:07 04/13/19 12:03 Procrit IV 10,000 unit LAUREN PRN Administration hemodialysis Famotidine 40 mg 04/10/19 22:00 04/15/19 09:18 Pepcid PO 40 mg BID DAVID Administration Furosemide 40 mg 04/11/19 08:00 04/15/19 08:11 Lasix PO 40 mg QDAC DAVID Administration Heparin Sodium (Porcine) 5,000 unit 04/10/19 22:00 04/15/19 09:18 Heparin SUB-Q 5,000 unit Q12HR DAVID Administration Heparin Sodium (Porcine) 5,000 unit 04/11/19 06:07 04/11/19 15:59 Heparin IV 5,000 unit LAUREN PRN Administration hemodialysis Hydralazine HCl 50 mg 04/12/19 20:00 04/15/19 08:11 Apresoline PO 50 mg TID DAVID Administration Levofloxacin/Dextrose 500 mg in 100 mls @ 100 mls/hr 04/13/20 10:00 Levaquin 500mg/100ml IV Q48HR DAVID Sodium Chloride 100 mls @ 999 mls/hr 04/12/19 11:40 Nacl 0.9% IV LAUREN PRN Hypotension Levetiracetam 750 mg 04/10/19 22:00 04/15/19 09:18 Keppra PO 750 mg BID DAVID Administration Melatonin 5 mg 04/13/19 22:00 04/14/19 21:23 Melatonin PO 5 mg QHS DAVID Administration Multivit/Ca Carb/B Cmplx/FA/Prenat 1 cap 04/11/19 10:00 04/15/19 09:18 Renal Caps PO 1 cap QDAY DAVID Administration Ondansetron HCl 4 mg 04/10/19 11:55 04/14/19 21:22 Zofran IV 4 mg Q8H PRN Administration Nausea And Vomiting Pravastatin Sodium 40 mg 04/10/19 22:00 04/14/19 21:23 Pravachol PO 40 mg QHS DAVID Administration Sodium Bicarbonate 650 mg 04/10/19 14:00 04/15/19 08:11 Sodium Bicarbonate PO 650 mg TID DAVID Administration Sodium Chloride 10 ml 04/10/19 22:00 04/15/19 09:18 Sodium Chloride Flush Syringe 10 Ml IV 10 ml BID DAVID Administration Sodium Chloride 10 ml 04/10/19 11:53 Sodium Chloride Flush Syringe 10 Ml IV PRN PRN LINE FLUSH
[2019-04-15 14:05] VITALS: BP 118/60
[2020-04-13] MEDS ORDERED: LEVAQUIN 500MG/100ML 500 MG/100 ML BAG IV SCH (10:00)
== END 2019-04-15 15:40 | disposition home health service (06) | DRG 70 ==
LOC: ED 08:35 → 2B-ACE 10:11
PROVIDERS: ADMIT Internal Medicine; ATTEND Internal Medicine
PROC: 5A1D70Z Performance of Urinary Filtration, Intermittent, Less than 6 Hours Per Day (ICD-10-PCS; 2019-04-11)
PROC: 5A1D80Z Performance of Urinary Filtration, Prolonged Intermittent, 6-18 hours Per Day (ICD-10-PCS; principal; 2019-04-13)
PROC: 5A1D70Z Performance of Urinary Filtration, Intermittent, Less than 6 Hours Per Day (ICD-10-PCS; 2019-04-15)
DX: G93.41 Metabolic encephalopathy (principal); N18.6 End stage renal disease; R65.10 Systemic inflammatory response syndrome (SIRS) of non-infectious origin without acute organ dysfunction; I50.32 Chronic diastolic (congestive) heart failure; N25.81 Secondary hyperparathyroidism of renal origin; I13.2 Hypertensive heart and chronic kidney disease with heart failure and with stage 5 chronic kidney disease, or end stage renal disease; E87.2 Acidosis; F03.91 Unspecified dementia, unspecified severity, with behavioral disturbance; F05 Delirium due to known physiological condition; E87.6 Hypokalemia; D72.819 Decreased white blood cell count, unspecified; I25.10 Atherosclerotic heart disease of native coronary artery without angina pectoris; G40.909 Epilepsy, unspecified, not intractable, without status epilepticus; E78.5 Hyperlipidemia, unspecified; D63.1 Anemia in chronic kidney disease; E16.2 Hypoglycemia, unspecified; Z95.1 Presence of aortocoronary bypass graft; Z95.0 Presence of cardiac pacemaker; Z79.82 Long term (current) use of aspirin; Z79.899 Other long term (current) drug therapy
CPT/HCPCS: 36415; 70450; 71045; 71046; 80048; 80053; 80061; 80074; 81001; 82140; 82550; 82553; 82805; 82962; 83690; 83735; 84436; 84439; 84443; 84484; 85007; 85025; 85027; 85610; 85730; 87040; 87116; 93005; 93010; 93306; G0378; A9270-GY; J0885; J1644; J1956; J2405; J7030

== ENCOUNTER 2019-04-15 19:29 | Inpatient (IN) | payer MEDICARE ==
[2019-04-15] MEDS ORDERED: NACL 0.9% 500 ML 500 ML IV ONE (19:42)
--- NOTE | 2019-04-15 19:50 | Emergency Department Report ---
ED Altered Mental Status HPI - General Chief Complaint: Altered Mental Status Stated Complaint: AMS Time Seen by Provider: 04/15/19 19:38 Source: EMS Mode of arrival: Stretcher Limitations: Altered Mental Status - History of Present Illness Initial Comments: Mr. Dove is an 83 year old male who presents with altered mental status. He was just discharged today from our hospital for evaluation of altered mental status. EMS was unable to obtain information from relative. Unknown last time normal. EMS did note hypotension. Patient will only follow limited commands. He keeps eyes closed. stated that once her returned home from hospital. He sat in recliner. Eyes closed. He would not speak. He mouth appeared twisted. According to description in discharge summary, Mr. Dove would keep eyes closed, limited speech. Hyper-temple. These were the findings during recent hospitalization MD Complaint: altered mental status, decreased responsiveness -: Gradual, unknown Severity: severe Consistency of Symptoms: getting worse Context: change in medication, history of similar presen Associated Symptoms: other (patient will not provide history) - Related Data Home Medications Medication Instructions Recorded Confirmed Last Taken Aspirin EC 81 mg PO DAILY 10/11/16 04/15/19 04/09/19 Clopidogrel Bisulfate [Clopidogrel] 75 mg PO DAILY 10/11/16 04/15/19 04/09/19 Famotidine 40 mg PO BID 10/11/16 04/15/19 04/09/19 Lovastatin 40 mg PO QHS 10/11/16 04/15/19 04/09/19 Vit D3/Folic Acid/B2/B6/B12 1 each PO DAILY 10/11/16 04/15/19 04/09/19 [Folgard Tablet] Furosemide [Lasix TAB] 40 mg PO QDAC 04/10/19 04/15/19 04/09/19 Sodium Bicarbonate 650 mg PO TID 04/10/19 04/15/19 04/09/19 hydrALAZINE [Apresoline TAB] 50 mg PO QAM&QHS 04/10/19 04/15/19 04/09/19 levETIRAcetam [Keppra TAB] 750 mg PO BID 04/10/19 04/15/19 04/09/19 Previous Rx's Medication Instructions Recorded Last Taken Type Carvedilol [Coreg] 25 mg PO BID #60 tablet 04/15/19 Unknown Rx Folic Acid/Vit B Comp W-C [Renal 1 cap PO QDAY #30 capsule 04/15/19 Unknown Rx Caps] Melatonin [Melatonin 5MG TAB] 5 mg PO QHS #30 tablet 04/15/19 Unknown Rx Allergies Allergy/AdvReac Type Severity Reaction Status Date / Time No Known Allergies Allergy Verified 02/25/19 14:44 ED Review of Systems ROS: Stated complaint: AMS Other details as noted in HPI Comment: Unobtainable due to pts medical conditions (altered mental status) ED Past Medical Hx - Past Medical History Previous Medical History?: Yes Hx Hypertension: Yes Hx Heart Attack/AMI: No Hx Congestive Heart Failure: No Hx Renal Disease: Yes (ESRD) Hx Seizures: Yes Hx HIV: No - Surgical History Hx Open Heart Surgery: Yes Hx Pacemaker: Yes - Social History Smoking Status: Unknown if ever smoked Substance Use Type: None - Medications Home Medications: Home Medications Medication Instructions Recorded Confirmed Last Taken Type Aspirin EC 81 mg PO DAILY 10/11/16 04/15/19 04/09/19 History Clopidogrel Bisulfate [Clopidogrel] 75 mg PO DAILY 10/11/16 04/15/19 04/09/19 History Famotidine 40 mg PO BID 10/11/16 04/15/19 04/09/19 History Lovastatin 40 mg PO QHS 10/11/16 04/15/19 04/09/19 History Vit D3/Folic Acid/B2/B6/B12 1 each PO DAILY 10/11/16 04/15/19 04/09/19 History [Folgard Tablet] Furosemide [Lasix TAB] 40 mg PO QDAC 04/10/19 04/15/19 04/09/19 History Sodium Bicarbonate 650 mg PO TID 04/10/19 04/15/19 04/09/19 History hydrALAZINE [Apresoline TAB] 50 mg PO QAM&QHS 04/10/19 04/15/19 04/09/19 History levETIRAcetam [Keppra TAB] 750 mg PO BID 04/10/19 04/15/19 04/09/19 History Carvedilol [Coreg] 25 mg PO BID #60 tablet 04/15/19 04/15/19 Unknown Rx Folic Acid/Vit B Comp W-C [Renal 1 cap PO QDAY #30 capsule 04/15/19 04/15/19 Unk nown Rx Caps] Melatonin [Melatonin 5MG TAB] 5 mg PO QHS #30 tablet 04/15/19 04/15/19 Unknown Rx ED Physical Exam - General Limitations: Altered Mental Status General appearance: alert, in no apparent distress, other (has purposeful movement, legs crossed at the ankle, keeps eyes closed, will follow commands if question is repeated.) - Head Head exam: Present: atraumatic, normocephalic - Eye Eye exam: Present: other (keeps eyes shut) - ENT ENT exam: Present: mucous membranes moist - Neck Neck exam: Present: normal inspection, full ROM - Respiratory Respiratory exam: Present: normal lung sounds bilaterally. Absent: respiratory distress, wheezes, rales, rhonchi - Cardiovascular Cardiovascular Exam: Present: regular rate, normal rhythm, normal heart sounds, other (vascath site right chest bandage CDI). Absent: rubs, gallop - GI/Abdominal GI/Abdominal exam: Present: soft, normal bowel sounds. Absent: distended, te nderness, guarding, rebound - Extremities Exam Extremities exam: Present: normal inspection - Neurological Exam Neurological exam: Present: altered - Psychiatric Psychiatric exam: Present: anxious - Skin Skin exam: Present: warm, dry, intact, normal color. Absent: rash ED Course Vital Signs 04/15/19 04/15/19 04/15/19 17:49 19:32 19:36 Temperature 97.3 F L Pulse Rate 78 Respiratory 16 18 Rate Blood Pressure 114/78 78/50 Blood Pressure [Left] O2 Sat by Pulse 97 99 Oximetry 04/15/19 04/15/19 04/15/19 19:42 19:46 20:01 Temperature Pulse Rate 67 67 Respiratory 11 L 15 Rate Blood Pressure 114/78 114/78 114/78 Blood Pressure [Left] O2 Sat by Pulse 87 100 Oximetry 04/15/19 04/15/19 04/15/19 20:23 21:36 22:30 Temperature Pulse Rate 69 66 66 Respiratory 12 18 18 Rate Blood Pressure 107/56 Blood Pressure 120/86 116/84 [Left] O2 Sat by Pulse 99 100 Oximetry 04/16/19 00:00 Temperature Pulse Rate 67 Respiratory 20 Rate Blood Pressure Blood Pressure 117/82 [Left] O2 Sat by Pulse 99 Oximetry - Lab Data Result diagrams: 04/15/19 20:22 04/15/19 20:22 Lab Results 04/15/19 04/15/19 04/15/19 Range/Units 20:22 20:22 20:22 WBC 4.6 (4.5-11.0) K/mm3 RBC 3.77 (3.65-5.03) M/mm3 Hgb 11.0 L (11.8-15.2) gm/dl Hct 33.6 L (35.5-45.6) % MCV 89 (84-94) fl MCH 29 (28-32) pg MCHC 33 (32-34) % RDW 16.6 H (13.2-15.2) % Plt Count 191 (140-440) K/mm3 Lymph % (Auto) 17.9 (13.4-35.0) % Bartholomew % (Auto) 9.4 H (0.0-7.3) % Eos % (Auto) 1.2 (0.0-4.3) % Baso % (Auto) 0.4 (0.0-1.8) % Lymph # 0.8 L (1.2-5.4) K/mm3 Bartholomew # 0.4 (0.0-0.8) K/mm3 Eos # 0.1 (0.0-0.4) K/mm3 Baso # 0.0 (0.0-0.1) K/mm3 Seg Neutrophils % 71.1 H (40.0-70.0) % Seg Neutrophils # 3.3 (1.8-7.7) K/mm3 Sodium 140 (137-145) mmol/L Potassium 4.3 (3.6-5.0) mmol/L Chloride 97.6 L (98-107) mmol/L Carbon Dioxide 32 H (22-30) mmol/L Anion Gap 15 mmol/L BUN 12 (9-20) mg/dL Creatinine 3.1 H (0.8-1.5) mg/dL Estimated GFR 23 ml/min BUN/Creatinine Ratio 4 % Glucose 106 H (75-100) mg/dL Lactic Acid 1.30 (0.7-2.0) mmol/L Calcium 9.9 (8.4-10.2) mg/dL Total Bilirubin 0.30 (0.1-1.2) mg/dL AST 62 H (5-40) units/L ALT 44 (7-56) units/L Alkaline Phosphatase 57 (35-129) units/L Ammonia (25-60) umol/L Total Creatine Kinase (55-170) units/L Troponin T (0.00-0.029) ng/mL Total Protein 7.9 (6.3-8.2) g/dL Albumin 4.1 (3.9-5) g/dL Albumin/Globulin Ratio 1.1 % TSH (0.270-4.200) mlU/mL Salicylates (2.8-20.0) mg/dL Acetaminophen (10.0-30.0) ug/mL Plasma/Serum Alcohol (0-0.07) % 04/15/19 04/15/19 04/15/19 Range/Units 20:22 20:22 20:22 WBC (4.5-11.0) K/mm3 RBC (3.65-5.03) M/mm3 Hgb (11.8-15.2) gm/dl Hct (35.5-45.6) % MCV (84-94) fl MCH (28-32) pg MCHC (32-34) % RDW (13.2-15.2) % Plt Count (140-440) K/mm3 Lymph % (Auto) (13.4-35.0) % Bartholomew % (Auto) (0.0-7.3) % Eos % (Auto) (0.0-4.3) % Baso % (Auto) (0.0-1.8) % Lymph # (1.2-5.4) K/mm3 Bartholomew # (0.0-0.8) K/mm3 Eos # (0.0-0.4) K/mm3 Baso # (0.0-0.1) K/mm3 Seg Neutrophils % (40.0-70.0) % Seg Neutrophils # (1.8-7.7) K/mm3 Sodium (137-145) mmol/L Potassium (3.6-5.0) mmol/L Chloride (98-107) mmol/L Carbon Dioxide (22-30) mmol/L Anion Gap mmol/L BUN (9-20) mg/dL Creatinine (0.8-1.5) mg/dL Estimated GFR ml/min BUN/Creatinine Ratio % Glucose (75-100) mg/dL Lactic Acid (0.7-2.0) mmol/L Calcium (8.4-10.2) mg/dL Total Bilirubin (0.1-1.2) mg/dL AST (5-40) units/L ALT (7-56) units/L Alkaline Phosphatase (35-129) units/L Ammonia 16.0 L (25-60) umol/L Total Creatine Kinase 215 H (55-170) units/L Troponin T 0.135 H* (0.00-0.029) ng/mL Total Protein (6.3-8.2) g/dL Albumin (3.9-5) g/dL Albumin/Globulin Ratio % TSH (0.270-4.200) mlU/mL Salicylates (2.8-20.0) mg/dL Acetaminophen (10.0-30.0) ug/mL Plasma/Serum Alcohol < 0.01 (0-0.07) % 04/15/19 04/15/19 04/15/19 Range/Units 20:22 20:22 20:22 WBC (4.5-11.0) K/mm3 RBC (3.65-5.03) M/mm3 Hgb (11.8-15.2) gm/dl Hct (35.5-45.6) % MCV (84-94) fl MCH (28-32) pg MCHC (32-34) % RDW (13.2-15.2) % Plt Count (140-440) K/mm3 Lymph % (Auto) (13.4-35.0) % Bartholomew % (Auto) (0.0-7.3) % Eos % (Auto) (0.0-4.3) % Baso % (Auto) (0.0-1.8) % Lymph # (1.2-5.4) K/mm3 Bartholomew # (0.0-0.8) K/mm3 Eos # (0.0-0.4) K/mm3 Baso # (0.0-0.1) K/mm3 Seg Neutrophils % (40.0-70.0) % Seg Neutrophils # (1.8-7.7) K/mm3 Sodium (137-145) mmol/L Potassium (3.6-5.0) mmol/L Chloride (98-107) mmol/L Carbon Dioxide (22-30) mmol/L Anion Gap mmol/L BUN (9-20) mg/dL Creatinine (0.8-1.5) mg/dL Estimated GFR ml/min BUN/Creatinine Ratio % Glucose (75-100) mg/dL Lactic Acid (0.7-2.0) mmol/L Calcium (8.4-10.2) mg/dL Total Bilirubin (0.1-1.2) mg/dL AST (5-40) units/L ALT (7-56) units/L Alkaline Phosphatase (35-129) units/L Ammonia (25-60) umol/L Total Creatine Kinase (55-170) units/L Troponin T (0.00-0.029) ng/mL Total Protein (6.3-8.2) g/dL Albumin (3.9-5) g/dL Albumin/Globulin Ratio % TSH 2.090 (0.270-4.200) mlU/mL Salicylates < 0.3 L (2.8-20.0) mg/dL Acetaminophen < 5.0 L (10.0-30.0) ug/mL Plasma/Serum Alcohol (0-0.07) % 04/15/19 19:58 EKG obtained 1950 Normal sinus rhythm prolonged ME interval left bundle-branch block nonspecific ST-T wave pattern 04/15/19 20:00 EKGs are unchanged from April 13, 2019, earlier this and February. - Medical Decision Making Mr. Dove presents with acute encephalopathy DDX: TIA, acute metabolic encephalopathy as a result of new uremic state, recently began HD in February, delirium due to medication, dementia, seizure Admitted to hospitalist service for further evaluation Critical Care Time: Yes Critical care time in (mins) excluding proc time.: 40 Critical care attestation.: If time is entered above; I have spent that time in minutes in the direct care of this critically ill patient, excluding procedure time. 40 minutes of critical care time excluding procedures were used in the care of the patient. Patient required multiple assessments and interventions. I reviewed the electronic medical record. I spoke with consultants involved in the care of the patient. ED Disposition Clinical Impression: Acute metabolic encephalopathy, TIA (transient ischemic attack), Dementia Disposition: OP ADMIT IP TO THIS HOSP Is pt being admited?: Yes Does the pt Need Aspirin: No Condition: Stable
[2019-04-15 20:48] LABS: Basophils % (Auto) 0.4 % (0.0-1.8); Eosinophils # (Auto) 0.1 K/mm3 (0.0-0.4); Eosinophils % (Auto) 1.2 % (0.0-4.3); Hematocrit 33.6 % (35.5-45.6); Lymphocytes # (Auto) 0.8 K/mm3 (1.2-5.4); Lymphocytes % (Auto) 17.9 % (13.4-35.0); Mean Corpuscular HGB Conc 33 % (32-34); Mean Corpuscular Volume 89 fl (84-94); Monocytes # (Auto) 0.4 K/mm3 (0.0-0.8); Monocytes % (Auto) 9.4 % (0.0-7.3); Platelet Count 191 K/mm3 (140-440); Red Blood Count 3.77 M/mm3 (3.65-5.03); Red Cell Distribution Width 16.6 % (13.2-15.2)
--- NOTE | 2019-04-15 20:49 | Cat Scan Report ---
CT head without contrast HISTORY: Altered Mental Status. TECHNIQUE: Axial imaging performed from the skull apex through the skull base without the use of con trast. All CT scans at this location are performed using CT dose reduction for ALARA by means of aut omated exposure control. COMPARISON: CT head from 04/10/2019 FINDINGS: Parenchyma: No acute intracranial hemorrhage or parenchymal abnormality. 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 Ventricles: There is mild diffuse brain atrophy with commensurate ventricular enlargement which is l ikely age appropriate. Soft tissues: Soft tissues including the orbits appear normal. Bones: No acute osseous abnormality. Sinuses: Sinuses and mastoid air cells are clear. IMPRESSION: No acute abnormality. Signer Name: Jos Shaffer MD Signed: 04/15/2019 8:45 PM Workstation Name: [id number]
[2019-04-15 21:02] LABS: Albumin 4.1 g/dL (3.9-5); Calcium 9.9 mg/dL (8.4-10.2)
[2019-04-15] MEDS ORDERED: TYLENOL PR PRN (23:29)
[2019-04-15] MEDS ORDERED: ZOFRAN IV PRN (23:31)
--- NOTE | 2019-04-16 04:25 | History and Physical Report ---
CHIEF COMPLAINT: Change in mental status. HISTORY OF PRESENT ILLNESS: The patient is an 83-year-old male who was noted by the spouse to have change in mental status. The patient was just discharged from this hospital yesterday and went home and was doing fine according to the and then became less responsive, unable to talk and EMS was subsequently called and went and evaluated the patient and noted that her blood pressure was low and the patient was brought to the Emergency Room and also the patient's spouse complained about the patient not opening his eyes. There was no history of weakness, seizure, chest pain, shortness of breath, fever, nausea or vomiting. PAST MEDICAL HISTORY: Pertinent for hypertension, end-stage renal disease, on dialysis, seizure disorder. PAST SURGICAL HISTORY: Pertinent for open heart surgery, pacemaker placement. FAMILY HISTORY: Noncontributory. SOCIAL HISTORY: The patient does not smoke, does not drink alcohol and does not use illicit drug. MEDICATIONS: The patient is on aspirin 81 mg by mouth daily, Plavix 75 mg by mouth daily, famotidine 40 mg by mouth twice daily, lovastatin 40 mg by mouth at bedtime, Folgard tablet 1 by mouth daily, Lasix 40 mg by mouth daily a.c., sodium bicarbonate 600 mg by mouth 3 times daily, hydralazine 50 mg by mouth q.a.m. and at bedtime, Keppra 750 mg by mouth daily, Coreg 25 mg by mouth twice daily, folic acid/vitamin B complex with vitamin C 1 by mouth daily, melatonin 5 mg by mouth at bedtime. ALLERGIES: There are no known drug allergies. REVIEW OF SYSTEMS: CONSTITUTIONAL: There is no fever, no chills, no diaphoresis. HEENT: There is no headache or sore throat. CARDIOVASCULAR SYSTEM: There is no chest pain or orthopnea. RESPIRATORY SYSTEM: There is no shortness of breath or cough. GASTROINTESTINAL SYSTEM: There is no nausea, no vomiting, no abdominal pain, diarrhea or constipation. NEUROLOGICAL SYSTEM: Change in mental status noted. Difficulty with speech or noncommunicating behavior noted. MUSCULOSKELETAL: There is no joint pain or swelling. DERMATOLOGICAL SYSTEM: There is no skin rash or itching. GENITOURINARY SYSTEM: There is no dysuria, hematuria or flank pain. Rest of system review is normal. PHYSICAL EXAMINATION: GENERAL: At the time of exam, the patient was found to be alert, oriented x 3, looking weak, but not in acute distress. VITAL SIGNS: At the initial time of presentation shows temperature of 97.3 degrees Fahrenheit, pulse of 78, respirations 16. Initial blood pressure was 114/78, O2 sat of 97% on room air. HEENT: Pupils to be equal, round, reactive to light and accommodating. Extraocular muscles are intact. NECK: Supple with no JVD or carotid bruit. CARDIOVASCULAR SYSTEM: Showed normal first and second heart sounds with no gallops or murmurs. RESPIRATORY SYSTEM: Showed good air entry on both sides of the lungs with no abnormal breath sounds. GASTROINTESTINAL SYSTEM: Show abdomen to be full, soft, nontender with no organomegaly or rigidity. NEUROLOGICAL: Showed the patient to be looking weak with no focal deficit elicited. MUSCULOSKELETAL SYSTEM: Showed no joint swelling or tenderness. DERMATOLOGICAL SYSTEM: Showed no skin rash or itching. GENITOURINARY SYSTEM: Showing no costovertebral angle tenderness. PERTINENT LABORATORY AND IMAGING STUDIES: The patient had CT of the head without contrast done that shows no acute findings. The patient's lab results show CBC with normal white count, low hemoglobin of 11 and low hematocrit of 33.6 and normal MCV and CBC differential shows high monocyte count of 9.4. The patient's chemistry showed normal sodium and normal potassium, with low chloride of 97.6, high creatinine level of 3.1 with low GFR of 22 consistent with the patient's end-stage renal disease, on dialysis. Rest of chemistry was unremarkable except for elevated troponin level of 0.135. The patient's liver transaminases show high AST of 62 with normal ALT. The patient's toxicology screen was unremarkable. DIAGNOSES: 1. Altered mental status. 2. Transient ischemic attack. 3. Weakness. PLAN OF CARE: 1. The patient will be admitted as inpatient to telemetry. 2. The patient will have MRI of the brain done in the morning. 3. The patient will have bilateral carotid Doppler and 2D echo done in the morning. 4. The patient will be n.p.o. until swallow test is passed. 5. The patient will have neurology consult with Dr. José Pettit for evaluation for TIA. Also, the patient will have nephrology consult with Dr. Gabriella Pettit because of end-stage renal disease, on dialysis. 6. The patient will have physical therapy consult and speech therapy consult for evaluation and treatment. 7. The patient will have complete 2D echo done in the morning. 8. The patient will be on aspirin 325 mg by mouth daily as well as Tylenol 650 mg rectally every 4 hours for fever and headache and IV Zofran 4 mg every 8 hours for nausea and vomiting. 9. The patient's home medications will be applied after they have been reconciled. JOB# [id number] OCN/NTS
[2019-04-16] MEDS ORDERED: SODIUM BICARBONATE PO SCH (08:00)
[2019-04-16] MEDS ORDERED: LASIX PO SCH ×2 (08:00→09:20)
[2019-04-16] MEDS ORDERED: NACL 0.9% 100 ML IV PRN (09:27)
--- NOTE | 2019-04-16 09:27 | Consultation ---
History of Present Illness - History of Present Illness My assessment and plan are as follows End-stage renal disease: Patient will continue with hemodialysis treatment on Saturday and Saturday, scheduled as tolerated monitor hemodynamics closely while on dialysis dialysis nurse to monitor blood pressure and make sure systoli c blood pressure is not below 100 and heart rate is not above 100, From a dialysis standpoint his hemoglobin is 11.0 platelet count 1 91,000 potassium 4.3 creatinine 3.1 We'll check phosphorus and PTH level We'll add multivitamin Change Lasix to nondialysis days discontinue sodium bicarbonate tablets, Anemia and end-stage renal disease: To monitor and follow, erythropoietin as required goal hemoglobin dialysis patients usually occurring 10 and 12 Fluctuating mental status: Needs neurology, psychiatry evaluation and follow- up/has underlying dementia Secondary hyperparathyroidism: Monitor phosphorus and PTH and adjust binders as needed Diet and nutrition: Fluid restriction 1200 mL per day, high-protein diet may benefit from nutrition consultation , patient is protein intake should be 1.5 g per KG body weight Limited prognosis, not a very good candidate for long-term dialysis due to age and multiple comorbidities Hypertension and volume continue to monitor, educated about fluid restriction sodium restriction Prognosis remains guarded at this time We'll continue to follow and make recommendation from renal standpoint If you have any questions please feel free to contact me at [phone] Pratik Arcos M.D. [facility], [address] [place] [address] History of presenting illness Patient is 83-year-old -[place] male who has been readmitted here, he was initiated on renal replacement therapy and was diagnosed with end-stage renal disease his current dialysis access his central venous catheter Patient has been on hemodialysis treatment on Saturday and Saturday The last admission on Saturday when I saw him he was quite altered but after the treatment next day he felt much better he was alert awake Events of this hospitalization noted Past medical history: End-stage renal disease Anemia in ESRD Altered mental status Seizure disorder Current medications: Reviewed Social history/family history: Reviewed Allergies : Reviewed Review of systems: Positive for All other review of systems negative Physical examination: General: No acute distress HEENT: Oral mucosa moist no icterus, no facial swelling Neck: Supple no thyromegaly no lymphadenopathy no JVD Chest: Clear to auscultation no crackles rales or wheezes Heart: Regular rate and rhythm S1-S2 heard no S3-S4 Abdomen: Soft nontender no organomegaly no masses palpable no renal bruit no suprapubic masses no CVA tenderness Dermatology: No skin rashes noted Extremity: Less than 1+ peripheral edema, dry skin no petechial rashes Musculoskeletal: No joint effusion noted in knee and ankle area Psych: No evidence of agitation and aggression noted Neurological: Alert awake follows commands no tremors no myoclonus Back: No CVA tenderness Lab results and imaging: Reviewed Medications and Allergies Allergies Allergy/AdvReac Type Severity Reaction Status Date / Time No Known Allergies Allergy Verified 02/25/19 14:44 Home Medications Medication Instructions Recorded Confirmed Last Taken Type Aspirin EC 81 mg PO DAILY 10/11/16 04/15/19 04/09/19 History Clopidogrel Bisulfate [Clopidogrel] 75 mg PO DAILY 10/11/16 04/15/19 04/09/19 History Famotidine 40 mg PO BID 10/11/16 04/15/19 04/09/19 History Lovastatin 40 mg PO QHS 10/11/16 04/15/19 04/09/19 History Vit D3/Folic Acid/B2/B6/B12 1 each PO DAILY 10/11/16 04/15/19 04/09/19 History [Folgard Tablet] Furosemide [Lasix TAB] 40 mg PO QDAC 04/10/19 04/15/19 04/09/19 History Sodium Bicarbonate 650 mg PO TID 04/10/19 04/15/19 04/09/19 History hydrALAZINE [Apresoline TAB] 50 mg PO QAM&QHS 04/10/19 04/15/19 04/09/19 History levETIRAcetam [Keppra TAB] 750 mg PO BID 04/10/19 04/15/19 04/09/19 History Carvedilol [Coreg] 25 mg PO BID #60 tablet 04/15/19 04/15/19 Unknown Rx Folic Acid/Vit B Comp W-C [Renal 1 cap PO QDAY #30 capsule 04/15/19 04/15/19 Unknown Rx Caps] Melatonin [Melatonin 5MG TAB] 5 mg PO QHS #30 tablet 04/15/19 04/15/19 Unknown Rx Active Meds: Active Medications Acetaminophen (Tylenol) 650 mg NE Q4H PRN PRN Reason: Fever >101 Carvedilol (Coreg) 25 mg PO BID [facility] Famotidine (Pepcid) 10 mg PO BID [facility] Furosemide (Lasix) 80 mg PO QDAC [facility] Hydralazine HCl (Apresoline) 50 mg PO BID [facility] Levetiracetam (Keppra) 750 mg PO BID [facility] Melatonin (Melatonin) 5 mg PO QHS [facility] Multivit/Ca Carb/B Cmplx/FA/Prenat (Renal Caps) 1 cap PO QDAY [facility] Multivitamins/Iron (Hemocyte Plus) 1 each PO QDAY [facility] Ondansetron HCl (Zofran) 4 mg IV Q8H PRN PRN Reason: Nausea And Vomiting Pravastatin Sodium (Pravachol) 40 mg PO QHS [facility] Exam - Vital Signs Vital signs: Vital Signs BP 114/78 04/15/19 17:49 Results - Lab Results 04/15/19 20:22 04/15/19 20:22 Most recent lab results WBC 4.6 K/mm3 (4.5-11.0) 04/15/19 20:22 RBC 3.77 M/mm3 (3.65-5.03) 04/15/19 20:22 Hgb 11.0 gm/dl (11.8-15.2) L 04/15/19 20:22 Hct 33.6 % (35.5-45.6) L 04/15/19 20:22 MCV 89 fl (84-94) 04/15/19 20:22 MCH 29 pg (28-32) 04/15/19 20:22 MCHC 33 % (32-34) 04/15/19 20:22 RDW 16.6 % (13.2-15.2) H 04/15/19 20:22 Plt Count 191 K/mm3 (140-440) 04/15/19 20:22 Lymph % (Auto) 17.9 % (13.4-35.0) 04/15/19 20:22 [place] % (Auto) 9.4 % (0.0-7.3) H 04/15/19 20:22 Eos % (Auto) 1.2 % (0.0-4.3) 04/15/19 20:22 Baso % (Auto) 0.4 % (0.0-1.8) 04/15/19 20:22 Lymph # 0.8 K/mm3 (1.2-5.4) L 04/15/19 20:22 [place] # 0.4 K/mm3 (0.0-0.8) 04/15/19 20:22 Eos # 0.1 K/mm3 (0.0-0.4) 04/15/19 20:22 Baso # 0.0 K/mm3 (0.0-0.1) 04/15/19 20:22 Seg Neutrophils % 71.1 % (40.0-70.0) H 04/15/19 20:22 Seg Neutrophils # 3.3 K/mm3 (1.8-7.7) 04/15/19 20:22 Sodium 140 mmol/L (137-145) 04/15/19 20:22 Potassium 4.3 mmol/L (3.6-5.0) 04/15/19 20:22 Chloride 97.6 mmol/L (98-107) L 04/15/19 20:22 Carbon Dioxide 32 mmol/L (22-30) H 04/15/19 20:22 15 mmol/L 04/15/19 20:22 BUN 12 mg/dL (9-20) 04/15/19 20:22 3.1 mg/dL (0.8-1.5) H 04/15/19 20:22 Estimated GFR 23 ml/min 04/15/19 20:22 4 % 04/15/19 20:22 Glucose 106 mg/dL (75-100) H 04/15/19 20:22 Lactic Acid 1.30 mmol/L (0.7-2.0) 04/15/19 20:22 Calcium 9.9 mg/dL (8.4-10.2) 04/15/19 20:22 0.30 mg/dL (0.1-1.2) 04/15/19 20:22 AST 62 units/L (5-40) H 04/15/19 20:22 ALT 44 units/L (7-56) 04/15/19 20:22 57 units/L (35-129) 04/15/19 20:22 16.0 umol/L (25-60) L 04/15/19 20:22 215 units/L (55-170) H 04/15/19 20:22 0.135 ng/mL (0.00-0.029) H* 04/15/19 20:22 7.9 g/dL (6.3-8.2) 04/15/19 20:22 4.1 g/dL (3.9-5) 04/15/19 20:22 1.1 % 04/15/19 20:22 TSH 2.090 mlU/mL (0.270-4.200) 04/15/19 20:22 Salicylates < 0.3 mg/dL (2.8-20.0) L 04/15/19 20:22 Acetaminophen < 5.0 ug/mL (10.0-30.0) L 04/15/19 20:22 Plasma/Serum Alcohol < 0.01 % (0-0.07) 04/15/19 20:22
[2019-04-16] MEDS ORDERED: PEPCID PO SCH (10:00)
[2019-04-16] MEDS ORDERED: HEMOCYTE PLUS PO SCH (10:00)
[2019-04-16] MEDS ORDERED: NON-FORMULARY (Levetiracetam [Keppra Tab] 750 MG) PO SCH (10:00)
[2019-04-16] MEDS ORDERED: KEPPRA PO SCH (10:00)
[2019-04-16] MEDS ORDERED: NON-FORMULARY (Vit D3/Folic Acid/B2/B6/B12 [Folgard Tablet] 1 EACH) PO SCH (10:00)
--- NOTE | 2019-04-16 10:19 | Vascular Lab Report ---
BILATERAL CAROTID DOPPLER ULTRASOUND INDICATION : TIA TECHNIQUE: Grayscale and color Doppler imaging performed through the neck. COMPARISON: 11/23/2017 FINDINGS: Right: There is moderate calcified shadowing plaque in the right carotid bulb.. Peak systolic veloc ity in the CCA is 110 cm/s with end-diastolic velocity of 28 cm/s. Peak systolic velocity in the prox imal ICA is 103 cm/s with end-diastolic velocity of 42 cm/s. ICA to CCA ratio is less than 2. There i s antegrade flow in the ECA and the vertebral artery. Left: There is moderate calcified shadowing plaque in the left carotid bulb.. Peak systolic velocity in the CCA is 116 cm/s with end-diastolic velocity of 26 cm/s. Peak systolic velocity in the proximal ICA is 93 cm/s with end-diastolic velocity of 38 cm/s. ICA to CCA ratio is less than 2. There is ant egrade flow in the ECA and the vertebral artery. IMPRESSION: No hemodynamically significant stenosis by NASCET criteria. Less than 50% diameter reduct ion in the internal carotid arteries bilaterally. Signer Name: John Hernandez Jr, MD Signed: 04/16/2019 10:15 AM Workstation Name: [id number]
[2019-04-16] MEDS: PEPCID PO SCH ×2 (11:00→21:37)
[2019-04-16] MEDS: Renal Caps PO SCH (11:04)
[2019-04-16] MEDS: APRESOLINE PO SCH ×2 (11:07→21:37)
[2019-04-16] MEDS: COREG PO SCH ×2 (12:05→21:38)
[2019-04-16 12:18] LABS: Chol/HDL Ratio 2.07 %
--- NOTE | 2019-04-16 14:20 | Consultation ---
History of Present Illness Consult date: 04/16/19 Reason for Consult: Altered mental status Chief complaint: Altered mental status History of present illness: Patient is an 83-year-old man with a history of end-stage renal disease on hemodialysis, coronary artery disease, history of pacemaker placement, hyperlipidemia, hypertension, history of dementia, h/o seizures currently on Keppra. The patient was admitted approximately 1 week ago, for altered mental status, which occurred while the patient had gone for dialysis. Mental status had improved, and the patient was discharged yesterday. The patient was readmitted yesterday, due to recurrence of altered mental status. The patient's stated that while at home, she noted that he was not talking, and when she lifted up both arms, they both felt to the bed. This morning, the patient's mental status has somewhat improved, and he is almost back to baseline of mental status. His notes that he takes Keppra for previous seizures, and is currently taking 750 mg twice a day. She notes that he is not given an extra dose after dialysis. In regards to dementia, the patient's notes that he does have notable cognitive issues at baseline. Past History Past Medical History: other (end-stage renal disease on hemodialysis, coronary artery disease, history of pacemaker placement, hyperlipidemia, hypertension, history of dementia, h/o seizures currently on Keppra.) Social history: no significant social history, lives with family Family history: no significant family history Medications and Allergies Allergies Allergy/AdvReac Type Severity Reaction Status Date / Time No Known Allergies Allergy Verified 02/25/19 14:44 Home Medications Medication Instructions Recorded Confirmed Last Taken Type Aspirin EC 81 mg PO DAILY 10/11/16 04/15/19 04/09/19 History Clopidogrel Bisulfate [Clopidogrel] 75 mg PO DAILY 10/11/16 04/15/19 04/09/19 History Famotidine 40 mg PO BID 10/11/16 04/15/19 04/09/19 History Lovastatin 40 mg PO QHS 10/11/16 04/15/19 04/09/19 History Vit D3/Folic Acid/B2/B6/B12 1 each PO DAILY 10/11/16 04/15/19 04/09/19 History [Folgard Tablet] Furosemide [Lasix TAB] 40 mg PO QDAC 04/10/19 04/15/19 04/09/19 History Sodium Bicarbonate 650 mg PO TID 04/10/19 04/15/19 04/09/19 History hydrALAZINE [Apresoline TAB] 50 mg PO QAM&QHS 04/10/19 04/15/19 04/09/19 History levETIRAcetam [Keppra TAB] 750 mg PO BID 04/10/19 04/15/19 04/09/19 History Carvedilol [Coreg] 25 mg PO BID #60 tablet 04/15/19 04/15/19 Unknown Rx Folic Acid/Vit B Comp W-C [Renal 1 cap PO QDAY #30 capsule 04/15/19 04/15/19 Unknown Rx Caps] Melatonin [Melatonin 5MG TAB] 5 mg PO QHS #30 tablet 04/15/19 04/15/19 Unknown Rx Active Meds: Active Medications Acetaminophen (Tylenol) 650 mg [place] Q4H PRN PRN Reason: Fever >101 Carvedilol (Coreg) 25 mg PO BID [facility] Last Admin: 04/16/19 12:05 Dose: 25 mg Documented by: Famotidine (Pepcid) 10 mg PO BID [facility] Last Admin: 04/16/19 11:00 Dose: 10 mg Documented by: Furosemide (Lasix) 80 mg PO QDAC [facility] Hydralazine HCl (Apresoline) 50 mg PO BID [facility] Last Admin: 04/16/19 11:07 Dose: 50 mg Documented by: Sodium Chloride (Nacl 0.9%) 100 mls @ 999 mls/hr IV LAUREN PRN PRN Reason: Hypotension Levetiracetam (Keppra) 750 mg PO BID [facility] Last Admin: 04/16/19 11:00 Dose: 750 mg Documented by: Melatonin (Melatonin) 5 mg PO QHS [facility] Multivit/Ca Carb/B Cmplx/FA/Prenat (Renal Caps) 1 cap PO QDAY [facility] Last Admin: 04/16/19 11:04 Dose: 1 cap Documented by: Multivitamins/Iron (Hemocyte Plus) 1 each PO QDAY [facility] Ondansetron HCl (Zofran) 4 mg IV Q8H PRN PRN Reason: Nausea And Vomiting Pravastatin Sodium (Pravachol) 40 mg PO QHS [facility] Review of Systems All systems: negative Neurological: change in mentation, confusion Physical Examination - Vital Signs Vital Signs: Vital Signs BP 114/78 04/15/19 17:49 - Physical Exam Narrative exam: Mental status: Patient is currently awake, alert, oriented to name, age, year, location, minus month. Patient is able to follow complex commands. - Constitutional General appearance: comfortable - EENT EENT: Present: ATNC, PERRL, mucous membranes moist, hearing intact, vision intact - Respiratory Respiratory: Present: lungs clear, normal breath sounds - Cardiovascular Cardiovascular: Present: regular rate, normal S1, normal S2 Extremities: Present: no peripheral edema bilatateraly, no clubbing, cyanosis - Gastrointestinal Gastrointestinal: Present: normoactive bowel sounds, soft, non-tender - Integumentary Integumentary: Present: normal - Neurologic Cranial nerve examination: PERRL, EOMI, VFF, V1/V2/V3 grossly intact, face symmetric, intact shoulder shrug Speech examination: intact Sensorimotor examination: intact Motor examination - right side: 5/5: biceps, triceps, wrist flexion, wrist extension, sheet metal supervisor, hip flexors, knee extensors, dorsiflexion, toe extension (EHL), plantarflexion Motor examination - left side: 5/5: biceps, triceps, wrist flexion, wrist extension, sheet metal supervisor, hip flexors, knee extensors, dorsiflexion, toe extension (EHL), plantarflexion Detailed sensory examination: intact, light touch Reflex and gait examination: other (deferred) Reflexes: 2+: ankle, bicep, knee, tricep - Psychiatric Psychiatric: Present: mood/affect appropriate Results - Laboratory Findings CBC and BMP: 04/15/19 20:22 04/15/19 20:22 Abnormal Lab Findings: Abnormal Labs 04/15/19 04/15/19 04/15/19 20:22 20:22 20:22 Hgb 11.0 L Hct 33.6 L RDW 16.6 H [place] % (Auto) 9.4 H Lymph # 0.8 L Seg Neutrophils % 71.1 H Chloride 97.6 L Carbon Dioxide 32 H Creatinine 3.1 H Glucose 106 H AST 62 H Ammonia 16.0 L Total Creatine Kinase Troponin T PTH Intact Salicylates Acetaminophen 04/15/19 04/15/19 04/15/19 20:22 20:22 20:22 Hgb Hct RDW [place] % (Auto) Lymph # Seg Neutrophils % Chloride Carbon Dioxide Creatinine Glucose AST [place]ia Total Creatine Kinase 215 H Troponin T 0.135 H* PTH Intact Salicylates < 0.3 L Acetaminophen < 5.0 L 04/16/19 11:49 Hgb Hct RDW [place] % (Auto) Lymph # Seg Neutrophils % Chloride Carbon Dioxide Creatinine Glucose AST [place] Total Creatine Kinase Troponin T PTH Intact 248.2 H Salicylates Acetaminophen Assessment and Plan Patient is an 83-year-old man with a history of end-stage renal disease on hemodialysis, coronary artery disease, history of pacemaker placement, hyperlipidemia, hypertension, history of dementia, h/o seizures currently on Keppra, who presents with altered mental status. According the patient's clinical findings, it is likely that he has metabolic encephalopathy. Supporting this diagnosis, and the fact that the patient was noted to be somewhat unresponsive yesterday, however his mental status has gradually been improving this morning. Of note, the patient has a baseline of cognitive impairment and dementia. His states that he is nearly back to baseline at this time. It is possible that an appropriate current dosing of Keppra may be contributing to his symptoms. Further, the patient was found to be hypotensive during the event by paramedics at home. Plan: 1. Metabolic encephalopathy: - Patient unable to have MRI brain, due to pacemaker. - Will repeat CT head tomorrow to rule out stroke. - Carotid ultrasound did not show any significant stenosis. - Check urinalysis - Change keppra dose to 500mg BID, with and extra dose of 500mg to be given after each hemodialysis. - Continue Aspirin, Plavix, and statin for stroke prevention. - No a-fib noted on telemetry thus far, and further, descirption of even less likely to be TIA, and more likely to be metabolic encephalopathy. - Will continue to monitor neurologic status. - Plan of care discussed with patient and family. José Pettit MD Neurology
[2019-04-16 14:59] LABS: Amphetamine Screen,Urine PRESUMPTIVE NEGATIVE; Benzodiazepines Screen,Urine PRESUMPTIVE NEGATIVE; Cannabinoid Screen,Urine PRESUMPTIVE NEGATIVE; Cocaine Screen,Urine PRESUMPTIVE NEGATIVE; Methadone Screen,Urine PRESUMPTIVE NEGATIVE; Opiate Screen,Urine PRESUMPTIVE NEGATIVE
[2019-04-16 15:02] LABS: Bilirubin,Urine NEG (Negative); Blood,Urine LG (Negative); Color,Urine Yellow (Yellow)
[2019-04-16] MEDS: KEPPRA PO SCH (21:38)
[2019-04-16] MEDS ORDERED: NON-FORMULARY (Lovastatin [Lovastatin] 40 MG) PO SCH (22:00)
[2019-04-16] MEDS ORDERED: MELATONIN PO SCH (22:00)
[2019-04-16] MEDS ORDERED: PRAVACHOL PO SCH (22:00)
[2019-04-17] MEDS ORDERED: KEPPRA PO SCH (10:00)
[2019-04-17] MEDS ORDERED: PLAVIX PO SCH (10:00)
[2019-04-17] MEDS ORDERED: HALFPRIN EC PO SCH (10:00)
[2019-04-17] MEDS: APRESOLINE PO SCH (10:23)
[2019-04-17] MEDS: Renal Caps PO SCH (10:25)
[2019-04-17] MEDS: PEPCID PO SCH (10:26)
[2019-04-17] MEDS: KEPPRA PO SCH (10:26)
[2019-04-17] MEDS: COREG PO SCH (10:27)
--- NOTE | 2019-04-17 11:54 | Progress Note ---
Hospitalist Physical - Constitutional Vitals: Temp Pulse Resp BP Pulse Ox 98.7 F 68 18 113/45 97 04/17/19 09:10 04/17/19 11:15 04/17/19 09:10 04/17/19 11:15 04/17/19 03:26 Results - Labs CBC & Chem 7: 04/15/19 20:22 04/15/19 20:22 Labs: Laboratory Last Values WBC 4.6 K/mm3 (4.5-11.0) 04/15/19 20:22 RBC 3.77 M/mm3 (3.65-5.03) 04/15/19 20:22 Hgb 11.0 gm/dl (11.8-15.2) L 04/15/19 20:22 Hct 33.6 % (35.5-45.6) L 04/15/19 20:22 MCV 89 fl (84-94) 04/15/19 20:22 MCH 29 pg (28-32) 04/15/19 20:22 MCHC 33 % (32-34) 04/15/19 20:22 RDW 16.6 % (13.2-15.2) H 04/15/19 20:22 Plt Count 191 K/mm3 (140-440) 04/15/19 20:22 Lymph % (Auto) 17.9 % (13.4-35.0) 04/15/19 20:22 [place] % (Auto) 9.4 % (0.0-7.3) H 04/15/19 20:22 Eos % (Auto) 1.2 % (0.0-4.3) 04/15/19 20:22 Baso % (Auto) 0.4 % (0.0-1.8) 04/15/19 20:22 Lymph # 0.8 K/mm3 (1.2-5.4) L 04/15/19 20:22 [place] # 0.4 K/mm3 (0.0-0.8) 04/15/19 20:22 Eos # 0.1 K/mm3 (0.0-0.4) 04/15/19 20:22 Baso # 0.0 K/mm3 (0.0-0.1) 04/15/19 20:22 Seg Neutrophils % 71.1 % (40.0-70.0) H 04/15/19 20:22 Seg Neutrophils # 3.3 K/mm3 (1.8-7.7) 04/15/19 20:22 Sodium 140 mmol/L (137-145) 04/15/19 20:22 Potassium 4.3 mmol/L (3.6-5.0) 04/15/19 20:22 Chloride 97.6 mmol/L (98-107) L 04/15/19 20:22 Carbon Dioxide 32 mmol/L (22-30) H 04/15/19 20:22 15 mmol/L 04/15/19 20:22 BUN 12 mg/dL (9-20) 04/15/19 20:22 3.1 mg/dL (0.8-1.5) H 04/15/19 20:22 Estimated GFR 23 ml/min 04/15/19 20:22 4 % 04/15/19 20:22 Glucose 106 mg/dL (75-100) H 04/15/19 20:22 Lactic Acid 1.30 mmol/L (0.7-2.0) 04/15/19 20:22 Calcium 9.9 mg/dL (8.4-10.2) 04/15/19 20:22 Phosphorus 3.20 mg/dL (2.5-4.5) 04/16/19 11:49 0.30 mg/dL (0.1-1.2) 04/15/19 20:22 AST 62 units/L (5-40) H 04/15/19 20:22 ALT 44 units/L (7-56) 04/15/19 20:22 57 units/L (35-129) 04/15/19 20:22 16.0 umol/L (25-60) L 04/15/19 20:22 215 units/L (55-170) H 04/15/19 20:22 0.135 ng/mL (0.00-0.029) H* 04/15/19 20:22 7.9 g/dL (6.3-8.2) 04/15/19 20:22 4.1 g/dL (3.9-5) 04/15/19 20:22 1.1 % 04/15/19 20:22 Triglycerides 60 mg/dL (2-149) 04/16/19 11:49 Cholesterol 118 mg/dL (50-199) 04/16/19 11:49 57 mg/dL (50-130) 04/16/19 11:49 57 mg/dL (40-59) 04/16/19 11:49 2.07 % 04/16/19 11:49 TSH 2.090 mlU/mL (0.270-4.200) 04/15/19 20:22 PTH Intact 248.2 pg/mL (15-65) H 04/16/19 11:49 Yellow (Yellow) 04/16/19 14:43 Clear (Clear) 04/16/19 14:43 7.0 (5.0-7.0) 04/16/19 14:43 Ur Specific [place] 1.012 (1.003-1.030) 04/16/19 14:43 100 mg/dl mg/dL (Negative) 04/16/19 14:43 Neg mg/dL (Negative) 04/16/19 14:43 Neg mg/dL (Negative) 04/16/19 14:43 Lg (Negative) 04/16/19 14:43 Neg (Negative) 04/16/19 14:43 Neg (Negative) 04/16/19 14:43 2.0 mg/dL (<2.0) 04/16/19 14:43 Ur Leukocyte Esterase Tr (Negative) 04/16/19 14:43 13.0 /HPF (0.0-6.0) H 04/16/19 14:43 126.0 /HPF (0.0-6.0) 04/16/19 14:43 U Epithel Cells (Auto) 1.0 /HPF (0-13.0) 04/16/19 14:43 Few /HPF 04/16/19 14:43 Salicylates < 0.3 mg/dL (2.8-20.0) L 04/15/19 20:22 Presumptive negative 04/16/19 14:43 Presumptive negative 04/16/19 14:43 Acetaminophen < 5.0 ug/mL (10.0-30.0) L 04/15/19 20:22 Ur Barbiturates Screen Presumptive negative 04/16/19 14:43 Ur Phencyclidine Scrn Presumptive negative 04/16/19 14:43 Ur Amphetamines Screen Presumptive negative 04/16/19 14:43 U Benzodiazepines Scrn Presumptive negative 04/16/19 14:43 Presumptive negative 04/16/19 14:43 U Marijuana (THC) Screen Presumptive negative 04/16/19 14:43 Disclamer 04/16/19 14:43 Plasma/Serum Alcohol < 0.01 % (0-0.07) 04/15/19 20:22 Active Medications - Current Medications Current Medications: Generic Name Dose Route Start Last Admin Trade Name Freq PRN Reason Stop Dose Admin Acetaminophen 650 mg 04/15/19 23:29 Tylenol [place] Q4H PRN Fever >101 Aspirin 81 mg 04/17/19 10:00 Halfprin Ec PO QDAY [facility] Carvedilol 25 mg 04/16/19 10:00 04/17/19 10:27 Coreg PO Not Given BID [facility] Clopidogrel Bisulfate 75 mg 04/17/19 10:00 Plavix PO QDAY [facility] Famotidine 10 mg 04/16/19 10:00 04/17/19 10:26 Pepcid PO Not Given BID [facility] Furosemide 80 mg 04/16/19 09:20 04/17/19 08:46 Lasix PO Not Given QDAC [facility] Hydralazine HCl 50 mg 04/16/19 10:00 04/17/19 10:23 Apresoline PO Not Given BID [facility] Sodium Chloride 100 mls @ 999 mls/hr 04/16/19 09:27 Nacl 0.9% IV LAUREN PRN Hypotension Levetiracetam 500 mg 04/16/19 14:32 04/17/19 10:26 Keppra PO Not Given BID [facility] Levetiracetam 500 mg 04/17/19 10:00 Keppra PO 3XW [facility] Melatonin 5 mg 04/16/19 22:00 04/16/19 21:37 Melatonin PO 5 mg QHS [facility] Administration Multivit/Ca Carb/B Cmplx/FA/Prenat 1 cap 04/16/19 10:00 04/17/19 10:25 Renal Caps PO Not Given QDAY [facility] Multivitamins/Iron 1 each 04/16/19 10:00 04/17/19 10:23 Hemocyte Plus PO Not Given QDAY [facility] Ondansetron HCl 4 mg 04/15/19 23:31 Zofran IV Q8H PRN Nausea And Vomiting Pravastatin Sodium 40 mg 04/16/19 22:00 08/08/19 21:38 Pravachol PO 40 mg QHS [facility] Administration Nutrition/Malnutrition Assess - Dietary Evaluation Nutrition/Malnutrition Findings: Nutrition Notes Start: 04/16/19 15:52 Freq: Status: Active Protocol: Document 04/16/19 15:52 RM (Rec: 04/16/19 15:58 RM [id number]) Nutrition Notes Need for Assessment generated from: MST Initial or Follow up Brief Note Current Diagnosis Hypertension Other Pertinent Diagnosis ESRD on HD, AMS, TIA Current Diet Cardiac Labs/Tests Reviewed Pertinent Medications Reviewed Height 5 ft 11 in Weight 72.575 kg [place] Body Weight (kg) 78.18 BMI 22.3 Subjective/Other Information Screened for malnutrition. NPO in place earlier today. Cardic diet ordered later today. Pt and pt in room at time of visit. Pt helped answer questions. Pt stated that pt was discharged from this facility yesterday and re-admitted later yesterday. Stated that pt did not eat anything yesterday but pt appetite is improving. Stated that he eats most or all of his meals here . Unsure of dry wt. No temporal or orbital wasting . Burn Absent Trauma Absent Nutrition Intervention Follow-Up By: 04/20/19 Additional Comments Follow for stable intakes
--- NOTE | 2019-04-17 12:01 | Progress Note ---
Subjective Interval history: End-stage renal disease currently on maintenance hemodialysis, patient will continue to dialyze Saturday Hypertension: Adequately controlled Blood cultures negative for 24 hours Anemia hemoglobin currently 11.0 satisfactory From dialysis standpoint potassium is 4.3, BUNs 12 creatinine is 3.1 Secondary hyperparathyroidism phosphorus PTH needs to be monitored currently PTH is 248 satisfactory, phosphorus 3.2 satisfactory Patient was also seen and supervised on hemodialysis Objective - Vital Signs Vital signs: Vital Signs - 12hr 04/17/19 04/17/19 04/17/19 02:00 03:26 09:10 Temperature 97.9 F 98.7 F Pulse Rate 74 66 72 Respiratory 18 18 Rate Blood Pressure 139/65 115/63 O2 Sat by Pulse 97 Oximetry 04/17/19 04/17/19 04/17/19 09:13 09:15 09:30 Temperature Pulse Rate 63 76 70 Respiratory Rate Blood Pressure 112/59 121/65 130/70 O2 Sat by Pulse Oximetry 04/17/19 04/17/19 04/17/19 09:45 10:00 10:15 Temperature Pulse Rate 67 66 62 Respiratory Rate Blood Pressure 118/61 113/61 117/63 O2 Sat by Pulse Oximetry 04/17/19 04/17/19 04/17/19 10:30 10:45 11:00 Temperature Pulse Rate 64 64 67 Respiratory Rate Blood Pressure 106/60 108/59 105/57 O2 Sat by Pulse Oximetry 04/17/19 11:15 Temperature Pulse Rate 68 Respiratory Rate Blood Pressure 113/45 O2 Sat by Pulse Oximetry - Lab 04/15/19 20:22 04/15/19 20:22 Most recent lab results Calcium 9.9 mg/dL (8.4-10.2) 04/15/19 20:22 Phosphorus 3.20 mg/dL (2.5-4.5) 04/16/19 11:49 Medications & Allergies - Medications Allergies/Adverse Reactions: Allergies No Known Allergies Allergy (Verified 02/25/19 14:44) Home Medications: Home Medications Medication Instructions Recorded Confirmed Last Taken Type Aspirin EC 81 mg PO DAILY 10/11/16 04/15/19 04/09/19 History Clopidogrel Bisulfate [Clopidogrel] 75 mg PO DAILY 10/11/16 04/15/19 04/09/19 History Famotidine 40 mg PO BID 10/11/16 04/15/19 04/09/19 History Lovastatin 40 mg PO QHS 10/11/16 04/15/19 04/09/19 History Vit D3/Folic Acid/B2/B6/B12 1 each PO DAILY 10/11/16 04/15/19 04/09/19 History [Folgard Tablet] Furosemide [Lasix TAB] 40 mg PO QDAC 04/10/19 04/15/19 04/09/19 History Sodium Bicarbonate 650 mg PO TID 04/10/19 04/15/19 04/09/19 History hydrALAZINE [Apresoline TAB] 50 mg PO QAM&QHS 04/10/19 04/15/19 04/09/19 History levETIRAcetam [Keppra TAB] 750 mg PO BID 04/10/19 04/15/19 04/09/19 History Carvedilol [Coreg] 25 mg PO BID #60 tablet 04/15/19 04/15/19 Unknown Rx Folic Acid/Vit B Comp W-C [Renal 1 cap PO QDAY #30 capsule 04/15/19 04/15/19 Unknown Rx Caps] Melatonin [Melatonin 5MG TAB] 5 mg PO QHS #30 tablet 04/15/19 04/15/19 Unknown Rx Active Medications: Generic Name Dose Route Start Last Admin Trade Name Freq PRN Reason Stop Dose Admin Acetaminophen 650 mg 04/15/19 23:29 Tylenol NV Q4H PRN Fever >101 Aspirin 81 mg 04/17/19 10:00 Halfprin Ec PO QDAY DAVID Carvedilol 25 mg 04/16/19 10:00 04/17/19 10:27 Coreg PO Not Given BID DAVID Clopidogrel Bisulfate 75 mg 04/17/19 10:00 Plavix PO QDAY DAVID Famotidine 10 mg 04/16/19 10:00 04/17/19 10:26 Pepcid PO Not Given BID DAVID Furosemide 80 mg 04/16/19 09:20 04/17/19 08:46 Lasix PO Not Given QDAC DAVID Hydralazine HCl 50 mg 04/16/19 10:00 04/17/19 10:23 Apresoline PO Not Given BID DAVID Sodium Chloride 100 mls @ 999 mls/hr 04/16/19 09:27 Nacl 0.9% IV LAUREN PRN Hypotension Levetiracetam 500 mg 04/16/19 14:32 04/17/19 10:26 Keppra PO Not Given BID DAVID Levetiracetam 500 mg 04/17/19 10:00 Keppra PO 3XW DAVID Melatonin 5 mg 04/16/19 22:00 04/16/19 21:37 Melatonin PO 5 mg QHS DAVID Administration Multivit/Ca Carb/B Cmplx/FA/Prenat 1 cap 04/16/19 10:00 04/17/19 10:25 Renal Caps PO Not Given QDAY [facility] Multivitamins/Iron 1 each 04/16/19 10:00 04/17/19 10:23 Hemocyte Plus PO Not Given QDAY [facility] Ondansetron HCl 4 mg 04/15/19 23:31 Zofran IV Q8H PRN Nausea And Vomiting Pravastatin Sodium 40 mg 04/16/19 22:00 04/16/19 21:38 Pravachol PO 40 mg QHS DAVID Administration
--- NOTE | 2019-04-17 12:42 | Discharge Summary ---
Providers - Providers Date of Admission: 04/15/19 23:15 Attending physician: CHELITA TREJO MD 04/16/19 06:00 Consult to Physician [CONS] Routine Comment: Consulting Provider: MONICA VASQUEZ Physician Instructions: Reason For Exam: TIA WITH ALTERED MENTAL STATUS Consult to Physician [CONS] Routine Comment: Consulting Provider: POLA VASQUEZ Physician Instructions: Reason For Exam: ESRD ON DIALYSIS Physical Therapy Evaluation and Treat [CONS] Routine Comment: Reason For Exam: WEAKNESS WITH AMS Speech Therapy Evaluation and Treat [CONS] Routine Reason For Exam: SPEECH IMPAIRMENT WITH TIA Primary care physician: ROSALINE FAULKNER Hospitalization Condition: Stable Disposition: DC-01 TO HOME OR SELFCARE Time spent for discharge: 33 mins Core Measure Documentation - Palliative Care Palliative Care/ Comfort Measures: Not Applicable Exam - Constitutional Vitals: Temp Pulse Resp BP Pulse Ox 98.7 F 68 18 113/45 97 04/17/19 09:10 04/17/19 11:15 04/17/19 09:10 04/17/19 11:15 04/17/19 03:26 Plan Follow up with: ROSALINE FAULKNER MD [Primary Care Provider] - 7 Days Prescriptions: Aspirin EC 81 mg PO QDAY #30 tablet Fe Fumarate/FA/Mv, Min Comb#15 [Hemocyte Plus] 1 each PO QDAY #30 capsule levETIRAcetam [Keppra TAB] 500 mg PO BID #60 tablet levETIRAcetam [Keppra TAB] 500 mg PO 3XW #12 tablet Famotidine [Pepcid] 20 mg PO BID #60 tablet Clopidogrel [Plavix] 75 mg PO QDAY #30 tablet
[2019-04-17 16:08] VITALS: BP 128/62
--- NOTE | 2019-04-17 16:55 | Cat Scan Report ---
CT head without contrast CLINICAL HISTORY: Transient ischemic attack, altered mental status FINDINGS: There is moderate cerebral white matter disease which involves the ganglia capsular regions bilaterally. The findings appear to correlate with the previous CT of 04/15/2019. There is mild cerebr al atrophy with associated mild prominence of the ventricular system which appears unchangedthere is no CT evidence of acute intracranial hemorrhage or significant mass effect. There is a persistent a sellar and suprasellar mass which encroaches on the optic chiasm. This findin g also correlates with the previous exam and slightly reflects a macroadenoma. The visualized paranas al sinuses are clear. All CT scans at this location are performed using the CT dose reduction for ALA RA by means of automated exposure control. IMPRESSION: There is continued moderate microvascular angiopathy as described without CT evidence of acute intrac ranial hemorrhage. There is a stable sellar and suprasellar mass, also detailed above. Signer Name: Isael Turner MD Signed: 04/17/2019 4:51 PM Workstation Name: [id number]
--- NOTE | 2019-04-17 21:56 | Progress Note ---
Assessment and Plan Patient is an 83-year-old man with a history of end-stage renal disease on hemodialysis, coronary artery disease, history of pacemaker placement, hyperlipidemia, hypertension, history of dementia, h/o seizures currently on Keppra, who presents with altered mental status. According the patient's clinical findings, it is likely that he has metabolic encephalopathy. Supporting this diagnosis, and the fact that the patient was noted to be somewhat unresponsive yesterday, however his mental status has gradually been improving this morning. Of note, the patient has a baseline of cognitive impairment and dementia. His states that he was nearly back to baseline yesterday. Further, the patient was found to be hypotensive during the event by paramedics at home. Urinalysis also shows increased WBC, and patient c/o burning micturition. Plan: 1. Metabolic encephalopathy: - Patient unable to have MRI brain, due to pacemaker. - Repeat CT head did not show any evidence of acute abnormality. - Carotid ultrasound did not show any significant stenosis. - Urinalysis showed increased WBC and LE. - Changed keppra dose to 500mg BID, with and extra dose of 500mg to be given after each hemodialysis. - Continue Aspirin, Plavix, and statin for stroke prevention. - No a-fib noted on telemetry thus far, and further, descirption of even less likely to be TIA, and more likely to be metabolic encephalopathy. - Recommend further management of possible UTI per primary team. - Patient also has likely underlying dementia, and recommend outpatient follow up with neurology. - Plan of care discussed with patient and family. - Will sign off. Please call with any questions. José Pettit MD Neurology Subjective Date of service: 04/17/19 Principal diagnosis: Metabolic Encephalopathy Interval history: Patient is complaining of burning micturition today. Patient has fluctuation in mental status, in that earlier in the morning he able to answer more questions correctly, however this afternoon is not answering the same questions correctly. Objective - Exam Narrative Exam: Mental status: Patient is currently awake, alert, oriented to name, age, year, location, minus month. Patient is able to follow 2-step commands. - Vital Sign Vital Signs - 12hr 04/17/19 04/17/19 04/17/19 10:00 10:15 10:30 Temperature Pulse Rate 56 L 62 64 Respiratory Rate Blood Pressure 113/61 117/63 106/60 04/17/19 04/17/19 04/17/19 10:45 11:00 11:15 Temperature Pulse Rate 64 67 68 Respiratory Rate Blood Pressure 108/59 105/57 113/45 04/17/19 04/17/19 04/17/19 11:30 11:45 12:00 Temperature Pulse Rate 71 67 64 Respiratory Rate Blood Pressure 104/62 115/56 114/58 04/17/19 04/17/19 04/17/19 12:15 12:27 12:30 Temperature Pulse Rate 68 70 Respiratory 18 Rate Blood Pressure 117/64 118/69 04/17/19 04/17/19 04/17/19 12:45 13:00 13:15 Temperature 97.2 F L Pulse Rate 67 66 69 Respiratory 18 Rate Blood Pressure 120/69 125/72 128/62 04/17/19 18:00 Temperature Pulse Rate 66 Respiratory Rate Blood Pressure - General Apperance Constitutional: comfortable - EENT EENT: ATNC, PERRL, mucous membranes moist, hearing intact, vision intact - Respiratory Respiratory: lungs clear, normal breath sounds - Cardiovascular Cardiovascular: regular rate, normal S1, normal S2 Extremities: no peripheral edema bilat, no clubbing, cyanosis - Gastrointestinal Gastrointestinal: normoactive bowel sounds, soft, non-tender - Integumentary Integumentary: normal - Neurologic Cranial nerve examination: PERRL, EOMI, VFF, V1/V2/V3 grossly intact, face symmetric, tongue midline, intact shoulder shrug Speech examination: intact Motor examination - right side: 5/5: biceps, triceps, wrist flexion, wrist extension, inspector line, hip flexors, knee extensors, dorsiflexion, toe extension (EHL), plantarflexion Motor examination - left side: 5/5: biceps, triceps, wrist flexion, wrist extension, inspector line, hip flexors, knee extensors, dorsiflexion, toe extension (EHL), plantarflexion Detailed sensory examination: intact, light touch Reflexes: 2+: ankle, bicep, knee, tricep Cerebellar examination: other (b/l intact to HTS and FTN) - Musculoskeletal Musculoskeletal: no pain, normal range of motion - Psychiatric Psychiatric: mood/affect appropriate - Laboratory Findings CBC and BMP: 04/15/19 20:22 04/15/19 20:22 Abnormal Lab Findings: Abnormal Labs 04/15/19 04/15/19 04/15/19 20:22 20:22 20:22 Hgb 11.0 L Hct 33.6 L RDW 16.6 H [place] % (Auto) 9.4 H Lymph # 0.8 L Seg Neutrophils % 71.1 H Chloride 97.6 L Carbon Dioxide 32 H Creatinine 3.1 H Glucose 106 H AST 62 H Ammonia 16.0 L Total Creatine Kinase Troponin T PTH Intact Urine WBC (Auto) Salicylates Acetaminophen 04/15/19 04/15/19 04/15/19 20:22 20:22 20:22 Hgb Hct RDW [place] % (Auto) Lymph # Seg Neutrophils % Chloride Carbon Dioxide Creatinine Glucose AST Ammonia Total Creatine Kinase 215 H Troponin T 0.135 H* PTH Intact Urine WBC (Auto) Salicylates < 0.3 L Acetaminophen < 5.0 L 04/16/19 04/16/19 11:49 14:43 Hgb Hct RDW [place] % (Auto) Lymph # Seg Neutrophils % Chloride Carbon Dioxide Creatinine Glucose AST Ammonia Total Creatine Kinase Troponin T PTH Intact 248.2 H Urine WBC (Auto) 13.0 H Salicylates Acetaminophen
== END 2019-04-17 18:15 | disposition home health service (06) | DRG 70 ==
LOC: ED 19:29 → 4A 23:15
PROVIDERS: ADMIT Internal Medicine; ATTEND Internal Medicine
PROC: 5A1D70Z Performance of Urinary Filtration, Intermittent, Less than 6 Hours Per Day (ICD-10-PCS; principal; 2019-04-17)
DX: G93.41 Metabolic encephalopathy (principal); N18.6 End stage renal disease; G45.9 Transient cerebral ischemic attack, unspecified; I12.0 Hypertensive chronic kidney disease with stage 5 chronic kidney disease or end stage renal disease; N25.81 Secondary hyperparathyroidism of renal origin; Z99.2 Dependence on renal dialysis; D63.1 Anemia in chronic kidney disease; I95.9 Hypotension, unspecified; F03.90 Unspecified dementia, unspecified severity, without behavioral disturbance, psychotic disturbance, mood disturbance, and anxiety; G40.909 Epilepsy, unspecified, not intractable, without status epilepticus; I25.10 Atherosclerotic heart disease of native coronary artery without angina pectoris; E78.5 Hyperlipidemia, unspecified; Z95.0 Presence of cardiac pacemaker; Z79.82 Long term (current) use of aspirin
CPT/HCPCS: 36415; 70450; 80053; 80061; 80307; 80320; 81001; 82140; 82550; 83970; 84100; 84443; 84484; 85025; 87040; 87086; 93005; 93010; 93308; 93321; 93325; 93880; G0378; A9270-GY; G0480

== ENCOUNTER 2019-04-18 13:16 | Inpatient (IN) | payer MEDICARE ==
--- NOTE | 2019-04-18 13:52 | Emergency Department Report ---
HPI - General Time Seen by Provider: 04/18/19 13:24 - HPI HPI: 83-year-old aftermath male presents to the emergency department by EMS from home for initially what was called altered mental status. The patient himself does not have any complaints but he does appear to have some confusion or dementia. The patient was just discharged from the hospital yesterday after being here for a few days for similar symptoms and had a diagnosis of acute metabolic encephalopathy and possible TIA. I spoke with the patient's who says that the patient walked out of the apartment this morning "which she does not usually do" and was seen roaming around the apartment complex by "some people who know him." When he was confronted about returning to the apartment, the patient allegedly said that he did not want to go back up the stairs and into the apartment and instead wanted to go to the hospital. The also says that he has not been taking his medication, including one for a urinary tract infection. Records show a history of coronary artery disease with previous CABG, end-stage renal disease on hemodialysis, hypertension and a seizure disorder. ED Past Medical Hx - Past Medical History Hx Hypertension: Yes Hx Heart Attack/AMI: No Hx Congestive Heart Failure: No Hx Diabetes: No Hx Renal Disease: Yes (ESRD) Hx Seizures: Yes Hx Asthma: No Hx COPD: No Hx HIV: No - Surgical History Hx Open Heart Surgery: Yes Hx Pacemaker: Yes - Social History Smoking Status: Never Smoker - Medications Home Medications: Home Medications Medication Instructions Recorded Confirmed Last Taken Type Lovastatin 40 mg PO QHS 10/11/16 04/15/19 04/09/19 History Vit D3/Folic Acid/B2/B6/B12 1 each PO DAILY 10/11/16 04/15/19 04/09/19 History [Folgard Tablet] Furosemide [Lasix TAB] 40 mg PO QDAC 04/10/19 04/15/19 04/09/19 History Sodium Bicarbonate 650 mg PO TID 04/10/19 04/15/19 04/09/19 History hydrALAZINE [Apresoline TAB] 50 mg PO QAM&QHS 04/10/19 04/15/19 04/09/19 History Carvedilol [Coreg] 25 mg PO BID #60 tablet 04/15/19 04/15/19 Unknown Rx Folic Acid/Vit B Comp W-C [Renal 1 cap PO QDAY #30 capsule 04/15/19 04/15/19 Unknown Rx Caps] Melatonin [Melatonin 5MG TAB] 5 mg PO QHS #30 tablet 04/15/19 04/15/19 Unknown Rx Aspirin EC 81 mg PO QDAY #30 tablet 04/17/19 Unknown Rx Clopidogrel [Plavix] 75 mg PO QDAY #30 tablet 04/17/19 Unknown Rx Famotidine [Pepcid] 20 mg PO BID #60 tablet 04/17/19 Unknown Rx Fe Fumarate/FA/Mv, Min Comb#15 1 each PO QDAY #30 capsule 04/17/19 Unknown Rx [Hemocyte Plus] levETIRAcetam [Keppra TAB] 500 mg PO 3XW #12 tablet 04/17/19 Unknown Rx levETIRAcetam [Keppra TAB] 500 mg PO BID #60 tablet 04/17/19 Unknown Rx ED Review of Systems ROS: Stated complaint: AMS Other details as noted in HPI Comment: Unobtainable due to pts medical conditions Physical Exam - Physical Exam Physical Exam: GENERAL: The patient is well-developed well-nourished. HENT: Normocephalic. Atraumatic. Patient has moist mucous membranes. EYES: Extraocular motions are intact. Pupils equal reactive to light bilaterally. NECK: Supple. Trachea is midline. CHEST/LUNGS: Clear to auscultation. There is no respiratory distress noted. HEART/CARDIOVASCULAR: Regular. There is no tachycardia. There is no murmur. ABDOMEN: Abdomen is soft, nontender. Patient has normal bowel sounds. There is no abdominal distention. SKIN: Skin is warm and dry. NEURO: The patient is awake but confused. The patient has normal speech. No pronator drift. Cranial nerves II through XII grossly intact. No facial asymmetry. MUSCULOSKELETAL: There is no tenderness or deformity. There is no limitation range of motion. There is no evidence of acute injury. PSYCH: Patient is hyperverbal and hyperreligious. ED Medical Decision Making - Lab Data Result diagrams: 04/18/19 13:39 04/18/19 13:39 - EKG Data -: EKG Interpreted by Me - EKG Data When compared to previous EKG there are: no significant change Interpretation: unchanged when compared t (04/15/19), other (ventricular place, left axis deviation, prolonged QTC) - Radiology Data Radiology results: report reviewed CT BRAIN: 04/18/2019 INDICATION / CLINICAL INFORMATION: Altered mental status. COMPARISON: 04/17/2019 FINDINGS: BRAIN/INTRACRANIAL STRUCTURES: Unenhanced CT images of the brain demonstrate no evidence of acute intracranial abnormality. Ventricles and sulci are prominent in size, consistent with age-related atrophic change. There is no evidence of acute ischemic injury, hemorrhage, or parenchymal mass. Expansion of the sella turcica, with a sellar suprasellar mass is again noted. There appears to be rightward deviation of the infundibulum. Atherosclerotic vascular calcifications are present in the distal internal carotid arteries and vertebral arteries. EXTRACRANIAL STRUCTURES: Unremarkable. IMPRESSION: No acute abnormality. Stable chronic and age-related changes. Sellar abnormality. - Medical Decision Making This patient presented to the emergency department again what appears to be some altered mental status. He is able to tell what year it is but does still display some confusion consistent with his dementia. On top of that, the patient is hyperverbal and fixated on restorationist topics. Multiple times, patient is just yelling and is not redirectable. He was seen by the psychiatric as sessor and the patient we made a 1013. A CT scan of the head was done that does not show any bleed, shift, mass, ischemia or any other acute process. Labs show anemia of chronic kidney disease as well as his renal sufficiency consistent with his dialysis. The patient will be admitted to the hospital for further evaluation and treatment and was accepted for admission by the hospitalist, Dr. Tai. - Differential Diagnosis TIA, encephalopathy, electrolyte abnormalities, psychosis Critical Care Time: No Critical care attestation.: If time is entered above; I have spent that time in minutes in the direct care of this critically ill patient, excluding procedure time. ED Disposition Clinical Impression: ESRD (end stage renal disease) on dialysis Anemia in chronic kidney disease (CKD) Qualifiers: Chronic kidney disease stage: on chronic dialysis Qualified Code(s): N18.6 - End stage renal disease; D63.1 - Anemia in chronic kidney disease; Z99.2 - Dependence on renal dialysis Psychosis Qualifiers: Psychosis type: unspecified psychosis type Qualified Code(s): F29 - Unspecified psychosis not due to a substance or known physiological condition Altered mental status Qualifiers: Altered mental status type: unspecified Qualified Code(s): R41.82 - Altered mental status, unspecified Disposition: DC-09 OP ADMIT IP TO THIS HOSP Is pt being admited?: Yes Condition: Fair Time of Disposition: 18:33
[2019-04-18 14:01] LABS: Basophils % (Auto) 0.5 % (0.0-1.8); Eosinophils # (Auto) 0.2 K/mm3 (0.0-0.4); Eosinophils % (Auto) 4.8 % (0.0-4.3); Hemoglobin 9.9 gm/dl (11.8-15.2); Lymphocytes % (Auto) 28.2 % (13.4-35.0); Mean Corpuscular HGB Conc 33 % (32-34); Mean Corpuscular Volume 89 fl (84-94); Monocytes # (Auto) 0.5 K/mm3 (0.0-0.8); Monocytes % (Auto) 14.7 % (0.0-7.3); Platelet Count 166 K/mm3 (140-440); Red Blood Count 3.38 M/mm3 (3.65-5.03)
[2019-04-18 14:20] LABS: Albumin 3.8 g/dL (3.9-5); Calcium 9.7 mg/dL (8.4-10.2)
[2019-04-18] MEDS ORDERED: GEODON IM ONE ×2 (14:43→14:46)
--- NOTE | 2019-04-18 14:43 | Cat Scan Report ---
CT BRAIN: 04/18/2019 INDICATION / CLINICAL INFORMATION: Altered mental status. COMPARISON: 04/17/2019 FINDINGS: BRAIN/INTRACRANIAL STRUCTURES: Unenhanced CT images of the brain demonstrate no evidence of acute int racranial abnormality. Ventricles and sulci are prominent in size, consistent with age-related atrophic change. There is no evidence of acute ischemic injury, hemorrhage, or parenchymal mass. Expansion of the sella turcica, with a sellar suprasellar mass is again noted. There appears to be ri ghtward deviation of the infundibulum. Atherosclerotic vascular calcifications are present in the distal internal carotid arteries and verte bral arteries. EXTRACRANIAL STRUCTURES: Unremarkable. IMPRESSION: No acute abnormality. Stable chronic and age-related changes. Sellar abnormality. All CT scans at this location are performed using dose reduction to ALARA by means of automated expos ure control. Signer Name: Ernesto Romero MD Signed: 04/18/2019 2:39 PM Workstation Name: [id number]
[2019-04-18] MEDS ORDERED: ATIVAN IM ONE (15:11)
[2019-04-18] MEDS ORDERED: ATIVAN IV ONE (16:16)
--- NOTE | 2019-04-18 17:02 | History and Physical Report ---
History of Present Illness Chief complaint: HE is acting out History of present illness: 83 YO Male with ESRD on HD(T,R,Sa), CHF, HTN, HLD, Dementia with Behavioral Disturbance, CAD S/P CABG presents to ED for evaluation. Pt is confused, hallucinating and unable to give history. Pt history provided by who is at bedside during exam and interview. per the patient has experienced increased agitation, tangential thinking over the past 4 days with persistent symptoms over the past 1 day. Pt went to his scheduled dialysis session today and was unable to undergo dialysis. EMS notified, and upon arrival the patient was found to be in distress and transported to [facility]. Pt seen and evaluated in ED and found to have ESRD, Encephalopathy, as well as Dementia with Behavioral Disturbance. Pt admitted to VITO unit. Nephrology consulted in ED. Past History Past Medical History: CAD, ESRD, heart failure, hypertension, hyperlipidemia Past Surgical History: CABG, Other (Pacemaker, Dialysis access) Social history: , lives with family Family history: diabetes, hypertension Medications and Allergies Allergies Allergy/AdvReac Type Severity Reaction Status Date / Time No Known Allergies Allergy Verified 02/25/19 14:44 Home Medications Medication Instructions Recorded Confirmed Last Taken Type Lovastatin 40 mg PO QHS 10/11/16 04/18/19 04/09/19 History Vit D3/Folic Acid/B2/B6/B12 1 each PO DAILY 10/11/16 04/18/19 04/09/19 History [Folgard Tablet] Furosemide [Lasix TAB] 40 mg PO QDAC 04/10/19 04/18/19 04/09/19 History Sodium Bicarbonate 650 mg PO TID 04/10/19 04/18/19 04/09/19 History hydrALAZINE [Apresoline TAB] 50 mg PO QAM&QHS 04/10/19 04/18/19 04/09/19 History Carvedilol [Coreg] 25 mg PO BID #60 tablet 04/15/19 04/18/19 Unknown Rx Folic Acid/Vit B Comp W-C [Renal 1 cap PO QDAY #30 capsule 04/15/19 04/18/19 Unknown Rx Caps] Melatonin [Melatonin 5MG TAB] 5 mg PO QHS #30 tablet 04/15/19 04/18/19 Unknown Rx Aspirin EC 81 mg PO QDAY #30 tablet 04/17/19 04/18/19 Unknown Rx Clopidogrel [Plavix] 75 mg PO QDAY #30 tablet 04/17/19 04/18/19 Unknown Rx Famotidine [Pepcid] 20 mg PO BID #60 tablet 04/17/19 04/18/19 Unknown Rx Fe Fumarate/FA/Mv, Min Comb#15 1 each PO QDAY #30 capsule 04/17/19 04/18/19 Unknown Rx [Hemocyte Plus] levETIRAcetam [Keppra TAB] 500 mg PO 3XW #12 tablet 04/17/19 04/18/19 Unknown Rx levETIRAcetam [Keppra TAB] 500 mg PO BID #60 tablet 04/17/19 04/18/19 Unknown Rx Review of Systems ROS unobtainable: due to mental status Exam - Constitutional Vitals: Temp Pulse Resp BP Pulse Ox 80 18 162/102 04/18/19 14:58 04/18/19 14:58 04/18/19 14:58 General appearance: Present: mild distress, cachectic - EENT Eyes: Present: PERRL ENT: hearing intact, clear oral mucosa - Neck Neck: Present: supple, normal ROM - Respiratory Respiratory effort: normal Respiratory: bilateral: CTA - Cardiovascular Heart Sounds: Present: S1 & S2. Absent: rub, click - Extremities Extremities: pulses symmetrical, No edema Peripheral Pulses: within normal limits - Abdominal General gastrointestinal: Present: soft, non-tender, non-distended, normal bowel sounds Male genitourinary: Present: normal - Integumentary Integumentary: Present: clear, warm, dry - Musculoskeletal Musculoskeletal: gait normal, strength equal bilaterally - Psychiatric Psychiatric: no appropriate mood/affect, no intact judgment & insight, no memory intact - Neurologic Neurologic: CNII-XII intact, moves all extremities, no gait normal Results - Labs CBC & Chem 7: 04/19/19 03:51 04/19/19 03:51 Labs: Abnormal lab results 04/18/19 04/18/19 Range/Units 13:39 13:39 WBC 3.6 L (4.5-11.0) K/mm3 RBC 3.38 L (3.65-5.03) M/mm3 Hgb 9.9 L (11.8-15.2) gm/dl Hct 30.0 L (35.5-45.6) % RDW 16.0 H (13.2-15.2) % [place] % (Auto) 14.7 H (0.0-7.3) % Eos % (Auto) 4.8 H (0.0-4.3) % Lymph # 1.0 L (1.2-5.4) K/mm3 BUN 21 H (9-20) mg/dL Creatinine 4.5 H (0.8-1.5) mg/dL Albumin 3.8 L (3.9-5) g/dL Assessment and Plan - Patient Problems (1) ESRD (end stage renal disease) Current Visit: Yes Status: Acute Plan to address problem: Nephrology consulted in ED, Dialysis as per renal team, strict I/O, monitor uop q shift, avoid nephrotoxic agents, (2) Dementia Current Visit: Yes Status: Acute Qualifiers: Dementia type: vascular dementia Dementia behavioral disturbance: with behavioral disturbance Qualified Code(s): F01.51 - Vascular dementia with behavioral disturbance Plan to address problem: Supportive care, ativan prn, continue prehospital medication (3) Encephalopathy Current Visit: Yes Status: Acute Plan to address problem: CT Heat, PTH level, Calcium level, IVF resuscitation therapy as tolerated. (4) HTN (hypertension) Current Visit: Yes Status: Acute Qualifiers: Hypertension type: essential hypertension Qualified Code(s): I10 - Essential (primary) hypertension Plan to address problem: Monitor BP q shift, supportive care. (5) HLD (hyperlipidemia) Current Visit: Yes Status: Acute Qualifiers: Hyperlipidemia type: mixed hyperlipidemia Qualified Code(s): E78.2 - Mixed hyperlipidemia Plan to address problem: Statin therapy, low cholesterol diet, (6) DVT prophylaxis Current Visit: Yes Status: Acute Plan to address problem: SCD to BLE while in bed, prophylactic heparin
[2019-04-18] MEDS ORDERED: MORPHINE IV PRN (17:06)
[2019-04-18] MEDS ORDERED: ZOFRAN IV PRN (17:06)
[2019-04-18] MEDS ORDERED: TYLENOL PO PRN (17:06)
[2019-04-18] MEDS ORDERED: SODIUM CHLORIDE FLUSH SYRINGE 10 ML IV PRN (17:06)
[2019-04-18] MEDS: APRESOLINE PO SCH ×2 (19:24→22:31)
[2019-04-18] MEDS ORDERED: NON-FORMULARY (Lovastatin [Lovastatin] 40 MG) PO SCH (22:00)
[2019-04-18] MEDS ORDERED: PEPCID PO SCH (22:00)
[2019-04-18] MEDS: SODIUM BICARBONATE PO SCH (22:30)
[2019-04-18] MEDS: PRAVACHOL PO SCH (22:31)
[2019-04-18] MEDS: KEPPRA PO SCH (22:31)
[2019-04-18] MEDS: COREG PO SCH (22:31)
[2019-04-18] MEDS: MELATONIN PO SCH (22:31)
[2019-04-18] MEDS: PEPCID PO SCH (22:31)
[2019-04-19 04:39] LABS: Hematocrit 31.8 % (35.5-45.6); Hemoglobin 10.1 gm/dl (11.8-15.2); Mean Corpuscular HGB Conc 32 % (32-34); Mean Corpuscular Volume 91 fl (84-94); Platelet Count 150 K/mm3 (140-440); Red Cell Distribution Width 16.8 % (13.2-15.2)
[2019-04-19 05:01] LABS: Albumin 3.4 g/dL (3.9-5)
[2019-04-19 05:44] LABS: Anisocytosis 1+; Platelet Estimate Consistent w Auto; Total Cells Counted 100
[2019-04-19] MEDS ORDERED: LASIX PO SCH (08:00)
--- NOTE | 2019-04-19 09:39 | Progress Note ---
Assessment and Plan Assessment and plan: 83 YO Male with ESRD on HD(T,R,Sa), CHF, HTN, HLD, Dementia with Behavioral Disturbance, CAD S/P CABG presents to ED for evaluation. Pt is confused, hallucinating and unable to give history. Pt history provided by who is at bedside during exam and interview. per the patient has experienced i ncreased agitation, tangential thinking over the past 4 days with persistent symptoms over the past 1 day. Pt went to his scheduled dialysis session today and was unable to undergo dialysis. EMS notified, and upon arrival the patient was found to be in distress and transported to [facility]. Pt seen and evaluated in ED and found to have ESRD, Encephalopathy, as well as Dementia with Behavioral Disturbance. Pt admitted to VITO unit. Nephrology consulted in ED. * Patient has had recurrent admission for same condition, prior plan was for L[facility]-psych but prohibited due to Dialysis needs. * Neurology evaluate during last admission and recommended treating underlying UTI. 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 * Keppra was changed to 500mg po BID with extra dose of 500MG After each dialysis. - Patient Problems ESRD (end stage renal disease) Current Visit: Yes Status: Acute Plan to address problem: Nephrology consulted Dialysis as per renal team, strict I/O, monitor uop q shift, avoid nephrotoxic agents, SIRS Receptly compelted abx. will monitor off abx Dementia Current Visit: Yes Status: Acute Qualifiers: Dementia type: vascular dementia Dementia behavioral disturbance: with behavioral disturbance Qualified Code(s): F01.51 - Vascular dementia with behavioral disturbance Plan to address problem: Supportive care, ativan prn, continue prehospital medication Encephalopathy Current Visit: Yes Status: Acute Plan to address problem: * Metabolic in nature, Patient will benefit from psych consult and Placement, spouse cannot care for this patient at home due to his clinical needs HTN (hypertension) Current Visit: Yes Status: Acute Qualifiers: Hypertension type: essential hypertension Qualified Code(s): I10 - Essential (primary) hypertension Plan to address problem: Monitor BP q shift, supportive care. HLD (hyperlipidemia) Current Visit: Yes Status: Acute Qualifiers: Hyperlipidemia type: mixed hyperlipidemia Qualified Code(s): E78.2 - Mixed hyperlipidemia Plan to address problem: Statin therapy, low cholesterol diet, DVT prophylaxis Current Visit: Yes Status: Acute Plan to address problem: SCD to BLE while in bed, prophylactic heparin History Interval history: Patient seen and examined, eating this morning, lethargic, no new complaints. Hospitalist Physical - Physical exam Narrative exam: General appearance: Present: Siting up in bed, cachectic - EENT Eyes: Present: PERRL ENT: hearing intact, clear oral mucosa - Neck Neck: Present: supple, normal ROM - Respiratory Respiratory effort: normal Respiratory: bilateral: CTA - Cardiovascular Heart Sounds: Present: S1 & S2. Absent: rub, click - Extremities Extremities: pulses symmetrical, No edema Peripheral Pulses: within normal limits - Abdominal General gastrointestinal: Present: soft, non-tender, non-distended, normal bowel sounds Male genitourinary: Present: normal - Integumentary Integumentary: Present: clear, warm, dry - Musculoskeletal Musculoskeletal: gait normal, strength equal bilaterally - Psychiatric Psychiatric: no appropriate mood/affect, no intact judgment & insight, no memory intact - Neurologic Neurologic: CNII-XII intact, moves all extremities, no gait normal - Constitutional Vitals: Temp Pulse Resp BP Pulse Ox 98.1 F 100 H 20 116/78 98 04/18/19 19:20 04/19/19 06:28 04/19/19 03:03 04/18/19 19:20 04/19/19 09:27 General appearance: Present: mild distress, cachectic Results - Labs CBC & Chem 7: 04/19/19 03:51 04/19/19 03:51 Labs: Laboratory Last Values WBC 3.2 K/mm3 (4.5-11.0) L 04/19/19 03:51 RBC 3.50 M/mm3 (3.65-5.03) L 04/19/19 03:51 Hgb 10.1 gm/dl (11.8-15.2) L 04/19/19 03:51 Hct 31.8 % (35.5-45.6) L 04/19/19 03:51 MCV 91 fl (84-94) 04/19/19 03:51 MCH 29 pg (28-32) 04/19/19 03:51 MCHC 32 % (32-34) 04/19/19 03:51 RDW 16.8 % (13.2-15.2) H 04/19/19 03:51 Plt Count 150 K/mm3 (140-440) 04/19/19 03:51 Lymph % (Auto) 28.2 % (13.4-35.0) 04/18/19 13:39 [place] % (Auto) 14.7 % (0.0-7.3) H 04/18/19 13:39 Eos % (Auto) 4.8 % (0.0-4.3) H 04/18/19 13:39 Baso % (Auto) 0.5 % (0.0-1.8) 04/18/19 13:39 Lymph # 1.0 K/mm3 (1.2-5.4) L 04/18/19 13:39 [place] # 0.5 K/mm3 (0.0-0.8) 04/18/19 13:39 Eos # 0.2 K/mm3 (0.0-0.4) 04/18/19 13:39 Baso # 0.0 K/mm3 (0.0-0.1) 04/18/19 13:39 Add Manual Diff Complete 04/19/19 03:51 Total Counted 100 04/19/19 03:51 Seg Neutrophils % [place] 04/19/19 03:51 Seg Neuts % (Manual) 25.0 % (40.0-70.0) L 04/19/19 03:51 0 % 04/19/19 03:51 47.0 % (13.4-35.0) H 04/19/19 03:51 Reactive Lymphs % (Man) 0 % 04/19/19 03:51 10.0 % (0.0-7.3) H 04/19/19 03:51 14.0 % (0.0-4.3) H 04/19/19 03:51 4.0 % (0.0-1.8) H 04/19/19 03:51 0 % 04/19/19 03:51 0 % 04/19/19 03:51 0 % 04/19/19 03:51 0 % 04/19/19 03:51 Nucleated RBC % Not Reportable 04/19/19 03:51 Seg Neutrophils # 1.9 K/mm3 (1.8-7.7) 04/18/19 13:39 Seg Neutrophils # Man 0.8 K/mm3 (1.8-7.7) L 04/19/19 03:51 Band Neutrophils # 0.0 K/mm3 04/19/19 03:51 1.5 K/mm3 (1.2-5.4) 04/19/19 03:51 Abs React Lymphs (Man) 0.0 K/mm3 04/19/19 03:51 0.3 K/mm3 (0.0-0.8) 04/19/19 03:51 0.4 K/mm3 (0.0-0.4) 04/19/19 03:51 0.1 K/mm3 (0.0-0.1) 04/19/19 03:51 0.0 K/mm3 04/19/19 03:51 0.0 K/mm3 04/19/19 03:51 0.0 K/mm3 04/19/19 03:51 Blast Cells # 0.0 K/mm3 04/19/19 03:51 WBC Morphology Not Reportable 04/19/19 03:51 Hypersegmented Neuts Not Reportable 04/19/19 03:51 Hyposegmented Neuts Not Reportable 04/19/19 03:51 Hypogranular Neuts Not Reportable 04/19/19 03:51 Not Reportable 04/19/19 03:51 Not Reportable 04/19/19 03:51 Not Reportable 04/19/19 03:51 Not Reportable 04/19/19 03:51 Not Reportable 04/19/19 03:51 Not Reportable 04/19/19 03:51 Consistent w auto 04/19/19 03:51 Not Reportable 04/19/19 03:51 Plt Clumps, EDTA Not Reportable 04/19/19 03:51 Not Reportable 04/19/19 03:51 Not Reportable 04/19/19 03:51 Not Reportable 04/19/19 03:51 Plt Morphology Comment Not Reportable 04/19/19 03:51 RBC Morphology Not Reportable 04/19/19 03:51 Dimorphic RBCs Not Reportable 04/19/19 03:51 Not Reportable 04/19/19 03:51 Not Reportable 04/19/19 03:51 Not Reportable 04/19/19 03:51 1+ 04/19/19 03:51 Not Reportable 04/19/19 03:51 Not Reportable 04/19/19 03:51 Not Reportable 04/19/19 03:51 Not Reportable 04/19/19 03:51 Not Reportable 04/19/19 03:51 Not Reportable 04/19/19 03:51 Not Reportable 04/19/19 03:51 Not Reportable 04/19/19 03:51 Not Reportable 04/19/19 03:51 Not Reportable 04/19/19 03:51 Not Reportable 04/19/19 03:51 Not Reportable 04/19/19 03:51 Not Reportable 04/19/19 03:51 Not Reportable 04/19/19 03:51 Not Reportable 04/19/19 03:51 Acanthocytes (Spur) Not Reportable 04/19/19 03:51 Rouleaux Not Reportable 04/19/19 03:51 Not Reportable 04/19/19 03:51 Not Reportable 04/19/19 03:51 Not Reportable 04/19/19 03:51 Not Reportable 04/19/19 03:51 Hem Pathologist Commnt No 04/19/19 03:51 Sodium 140 mmol/L (137-145) 04/19/19 03:51 Potassium 4.1 mmol/L (3.6-5.0) 04/19/19 03:51 Chloride 102.5 mmol/L (98-107) 04/19/19 03:51 Carbon Dioxide 24 mmol/L (22-30) 04/19/19 03:51 18 mmol/L 04/19/19 03:51 BUN 26 mg/dL (9-20) H 04/19/19 03:51 5.1 mg/dL (0.8-1.5) H 04/19/19 03:51 Estimated GFR 13 ml/min 04/19/19 03:51 5 % 04/19/19 03:51 Glucose 90 mg/dL (75-100) 04/19/19 03:51 Calcium 10.0 mg/dL (8.4-10.2) 04/19/19 03:51 0.40 mg/dL (0.1-1.2) 04/19/19 03:51 AST 26 units/L (5-40) 04/19/19 03:51 ALT 23 units/L (7-56) 04/19/19 03:51 51 units/L (35-129) 04/19/19 03:51 32.0 umol/L (25-60) 04/18/19 13:39 6.6 g/dL (6.3-8.2) 04/19/19 03:51 3.4 g/dL (3.9-5) L 04/19/19 03:51 1.1 % 04/19/19 03:51 TSH 0.943 mlU/mL (0.270-4.200) 04/18/19 13:39 PTH Intact 279.9 pg/mL (15-65) H 04/18/19 17:29 Plasma/Serum Alcohol < 0.01 % (0-0.07) 04/18/19 17:29 Active Medications - Current Medications Current Medications: Generic Name Dose Route Start Last Admin Trade Name Freq PRN Reason Stop Dose Admin Acetaminophen 650 mg 04/18/19 17:06 Tylenol PO Q4H PRN Pain MILD(1-3)/Fever >100.5/ZIMMERMAN Aspirin 81 mg 04/19/19 10:00 Halfprin Ec PO QDAY [facility] Carvedilol 25 mg 04/18/19 22:00 04/18/19 22:31 Coreg PO Not Given BID [facility] Clopidogrel Bisulfate 75 mg 04/19/19 10:00 Plavix PO QDAY [facility] Famotidine 10 mg 04/18/19 22:00 04/18/19 22:31 Pepcid PO Not Given BID [facility] Furosemide 40 mg 04/19/19 08:00 Lasix PO QDAC [facility] Heparin Sodium (Porcine) 5,000 unit 04/19/19 10:00 Heparin SUB-Q Q12HR [facility] Hydralazine HCl 50 mg 04/18/19 18:00 04/18/19 22:31 Apresoline PO Not Given BID [facility] Levetiracetam 500 mg 04/19/19 10:00 Keppra PO 3XW DAVID Levetiracetam 500 mg 04/18/19 22:00 04/18/19 22:31 Keppra PO Not Given BID [facility] Melatonin 5 mg 04/18/19 22:00 04/18/19 22:31 Melatonin PO Not Given QHS [facility] Morphine Sulfate 2 mg 04/18/19 17:06 Morphine IV Q4H PRN Pain, Moderate (4-6) Multivit/Ca Carb/B Cmplx/FA/Prenat 1 cap 04/19/19 10:00 Renal Caps PO QDAY [facility] Multivitamins/Iron 1 each 04/19/19 10:00 Hemocyte Plus PO QDAY [facility] Ondansetron HCl 4 mg 04/18/19 17:06 Zofran IV Q8H PRN Nausea And Vomiting Pravastatin Sodium 40 mg 04/18/19 22:00 04/18/19 22:31 Pravachol PO Not Given QHS [facility] Sodium Bicarbonate 650 mg 04/18/19 20:00 04/18/19 22:30 Sodium Bicarbonate PO Not Given TID DAVID Sodium Chloride 10 ml 04/18/19 22:00 Sodium Chloride Flush Syringe 10 Ml IV BID DAVID Sodium Chloride 10 ml 04/18/19 17:06 Sodium Chloride Flush Syringe 10 Ml IV PRN PRN LINE FLUSH
[2019-04-19] MEDS: HALFPRIN EC PO SCH (09:48)
[2019-04-19] MEDS: PLAVIX PO SCH (09:48)
[2019-04-19] MEDS: APRESOLINE PO SCH (09:49)
[2019-04-19] MEDS: Renal Caps PO SCH (09:49)
[2019-04-19] MEDS: PEPCID PO SCH (09:49)
[2019-04-19] MEDS: COREG PO SCH ×2 (09:50→23:04)
[2019-04-19] MEDS: HEPARIN SUB-Q SCH ×2 (09:56→23:05)
[2019-04-19] MEDS ORDERED: NON-FORMULARY (Vit D3/Folic Acid/B2/B6/B12 [Folgard Tablet] 1 EACH) PO SCH (10:00)
[2019-04-19] MEDS ORDERED: KEPPRA PO SCH (10:00)
[2019-04-19] MEDS: SODIUM BICARBONATE PO SCH (10:13)
[2019-04-19] MEDS: SODIUM CHLORIDE FLUSH SYRINGE 10 ML IV SCH ×2 (10:13→23:06)
[2019-04-19] MEDS: KEPPRA PO SCH ×2 (10:18→23:05)
--- NOTE | 2019-04-19 11:18 | Progress Note ---
Subjective Interval history: Patient was seen today for follow-up of multiple renal related issues he was recently discharged from the hospital and then was readmitted again with altered mental status And was also found to be acting out His is at bedside According to his he does usually do better postdialysis He has been seen by neurologist and psychiatrist in the past No complaints of any chest pain pressure or shortness of breath Interdisciplinary notes that also reviewed Events of 24 hours vitals labs intake output medications were reviewed Past medical history: Reviewed Family history: Reviewed Social history: Reviewed Allergies: Reviewed Physical examination: Vitals: Reviewed HEENT: No pallor or icterus oral mucosa moist Neck: Supple no JVD no thyromegaly Chest: Bilateral clear to auscultation anteriorly Heart: Regular rate and rhythm S1-S2 heard no S3-S4 Abdomen: Soft nontender no voluntary guarding rigidity rebound Extremity: Dry skin less than 1+ peripheral edema Psychiatric: No evidence of agitation and aggression noted Dermatology: No petechial rashes neurological: Patient appears to be somnolent: Opens his eyes and looks at me and then closes his eyes back Labs and x-rays: Reviewed from today Assessment and plan End-stage renal disease: Patient is currently on hemodialysis, and will need to continue with hemodialysis on Saturday schedule due to encephalopathy will increase his time to 4 hours using the central venous catheter At this point would like to minimize the medication with encephalopathy discontinue Pepcid, discontinue furosemide as patient does not appear to have any significant volume overload, discontinue hydralazine and start losartan discontinue melatonin, discontinue sodium bicarbonate, we'll keep the patient on PPI Plan of care has been discussed with patient's He will need neurology and psychiatry evaluation again Anemia and end-stage renal disease: Monitor hemoglobin and hematocrit erythropoietin as needed. Workup as required Secondary hyperparathyroidism: Check phosphorus and PTH level periodically, binders as needed Dialysis access: Currently working well Malnutrition risk: High consider high-protein diet dietitian evaluation and follow-up in general 1.5 g protein per KG body weight Fluid restriction: 1200 cc per day not to exceed more than that Adequately counseled and educated about other hospital related issues as well Labs were discussed with patient and simple Swedish Patient does appear to have good understanding of all the dialysis related issues We'll continue to follow and make recommendation for renal standpoint Objective - Vital Signs Vital signs: Vital Signs - 12hr 04/19/19 04/19/19 04/19/19 03:03 06:28 09:27 Pulse Rate 100 H Pulse Rate [ 73 Right Brachial] Respiratory 20 Rate Blood Pressure O2 Sat by Pulse 96 98 Oximetry 04/19/19 09:50 Pulse Rate 55 L Pulse Rate [ Right Brachial] Respiratory Rate Blood Pressure 133/51 O2 Sat by Pulse Oximetry - Lab 04/19/19 03:51 04/19/19 03:51 Most recent lab results Calcium 10.0 mg/dL (8.4-10.2) 04/19/19 03:51 Medications & Allergies - Medications Allergies/Adverse Reactions: Allergies No Known Allergies Allergy (Verified 02/25/19 14:44) Home Medications: Home Medications Medication Instructions Recorded Confirmed Last Taken Type Lovastatin 40 mg PO QHS 10/11/16 04/18/19 04/09/19 History Vit D3/Folic Acid/B2/B6/B12 1 each PO DAILY 10/11/16 04/18/19 04/09/19 History [Folgard Tablet] Furosemide [Lasix TAB] 40 mg PO QDAC 04/10/19 04/18/19 04/09/19 History Sodium Bicarbonate 650 mg PO TID 04/10/19 04/18/19 04/09/19 History hydrALAZINE [Apresoline TAB] 50 mg PO QAM&QHS 04/10/19 04/18/19 04/09/19 History Carvedilol [Coreg] 25 mg PO BID #60 tablet 04/15/19 04/18/19 Unknown Rx Folic Acid/Vit B Comp W-C [Renal 1 cap PO QDAY #30 capsule 04/15/19 04/18/19 Unknown Rx Caps] Melatonin [Melatonin 5MG TAB] 5 mg PO QHS #30 tablet 04/15/19 04/18/19 Unknown Rx Aspirin EC 81 mg PO QDAY #30 tablet 04/17/19 04/18/19 Unknown Rx Clopidogrel [Plavix] 75 mg PO QDAY #30 tablet 04/17/19 04/18/19 Unknown Rx Famotidine [Pepcid] 20 mg PO BID #60 tablet 04/17/19 04/18/19 Unknown Rx Fe Fumarate/FA/Mv, Min Comb#15 1 each PO QDAY #30 capsule 04/17/19 04/18/19 Unknown Rx [Hemocyte Plus] levETIRAcetam [Keppra TAB] 500 mg PO 3XW #12 tablet 04/17/19 04/18/19 Unknown Rx levETIRAcetam [Keppra TAB] 500 mg PO BID #60 tablet 04/17/19 04/18/19 Unknown Rx Active Medications: Generic Name Dose Route Start Last Admin Trade Name Freq PRN Reason Stop Dose Admin Acetaminophen 650 mg 04/18/19 17:06 Tylenol PO Q4H PRN Pain MILD(1-3)/Fever >100.5/ZIMMERMAN Aspirin 81 mg 04/19/19 10:00 04/19/19 09:48 Halfprin Ec PO 81 mg QDAY DAVID Administration Carvedilol 25 mg 04/18/19 22:00 04/19/19 09:50 Coreg PO 25 mg BID DAVID Administration Clopidogrel Bisulfate 75 mg 04/19/19 10:00 04/19/19 09:48 Plavix PO 75 mg QDAY DAVID Administration Famotidine 10 mg 04/18/19 22:00 04/19/19 09:49 Pepcid PO 10 mg BID DAVID Administration Furosemide 40 mg 04/19/19 08:00 04/19/19 09:56 Lasix PO 40 mg QDAC DAVID Administration Heparin Sodium (Porcine) 5,000 unit 04/19/19 10:00 04/19/19 09:56 Heparin SUB-Q 5,000 unit Q12HR DAVID Administration Hydralazine HCl 50 mg 04/18/19 18:00 04/19/19 09:49 Apresoline PO 50 mg BID DAVID Administration Levetiracetam 500 mg 04/19/19 10:00 04/19/19 09:49 Keppra PO 500 mg 3XW DAVID Administration Levetiracetam 500 mg 04/18/19 22:00 04/19/19 10:18 Keppra PO Not Given BID DAVID Melatonin 5 mg 04/18/19 22:00 04/18/19 22:31 Melatonin PO Not Given QHS [facility] Morphine Sulfate 2 mg 04/18/19 17:06 Morphine IV Q4H PRN Pain, Moderate (4-6) Multivit/Ca Carb/B Cmplx/FA/Prenat 1 cap 04/19/19 10:00 04/19/19 09:49 Renal Caps PO 1 cap QDAY DAVID Administration Multivitamins/Iron 1 each 04/19/19 10:00 Hemocyte Plus PO QDAY [facility] Ondansetron HCl 4 mg 04/18/19 17:06 Zofran IV Q8H PRN Nausea And Vomiting Pravastatin Sodium 40 mg 04/18/19 22:00 04/18/19 22:31 Pravachol PO Not Given QHS [facility] Sodium Bicarbonate 650 mg 04/18/19 20:00 04/19/19 10:13 Sodium Bicarbonate PO 650 mg TID DAVID Administration Sodium Chloride 10 ml 04/18/19 22:00 04/19/19 10:13 Sodium Chloride Flush Syringe 10 Ml IV 10 ml BID DAVID Administration Sodium Chloride 10 ml 04/18/19 17:06 Sodium Chloride Flush Syringe 10 Ml IV PRN PRN LINE FLUSH
[2019-04-19] MEDS: HEMOCYTE PLUS PO SCH (12:02)
--- NOTE | 2019-04-19 20:41 | Consultation ---
History of Present Illness - Reason for Consult Consult date: 04/19/19 Reason for consult: psychiatric evaluation, "behavioral disturbance" - Chief Complaint Chief complaint: Psych was reconsulted for behavior disturbance following a 3rd admission to [facility] in one week. - History of Present Psychiatric Illness 83 y.o. AA male who presented to the ER for AMS. He presented to [facility] for similar presentation x 3. He was resting and could not be interviewed. He did not respond to verbal stimuli. Per the initial psych consult 04/13/2019: [Per collateral information from his Mrs Charlene Dove who was at the bedside, she stated that her 's behavior changed night prior to going to dialysis Saturday. She stated that her is independent and do not need any assistance with his ADL's. She stated that her isn't at his baseline. She denies that her has a mental health dx.] Past psychiatric history - Past Medical History Past Medical History: ESRD Past Surgical History: No surgical history - past Psychiatric treatment and history psychiatric treatment history: Per collateral information from the patient , the patient does not have a psy hx nor a fam psu hx. - Social History Social history: lives with family Medications and Allergies Allergies Allergy/AdvReac Type Severity Reaction Status Date / Time No Known Allergies Allergy Verified 02/25/19 14:44 Home Medications Medication Instructions Recorded Confirmed Last Taken Type Lovastatin 40 mg PO QHS 10/11/16 04/18/19 04/09/19 History Vit D3/Folic Acid/B2/B6/B12 1 each PO DAILY 10/11/16 04/18/19 04/09/19 History [Folgard Tablet] Furosemide [Lasix TAB] 40 mg PO QDAC 04/10/19 04/18/19 04/09/19 History Sodium Bicarbonate 650 mg PO TID 04/10/19 04/18/19 04/09/19 History hydrALAZINE [Apresoline TAB] 50 mg PO QAM&QHS 04/10/19 04/18/19 04/09/19 History Carvedilol [Coreg] 25 mg PO BID #60 tablet 04/15/19 04/18/19 Unknown Rx Folic Acid/Vit B Comp W-C [Renal 1 cap PO QDAY #30 capsule 04/15/19 04/18/19 Unknown Rx Caps] Melatonin [Melatonin 5MG TAB] 5 mg PO QHS #30 tablet 04/15/19 04/18/19 Unknown Rx Aspirin EC 81 mg PO QDAY #30 tablet 04/17/19 04/18/19 Unknown Rx Clopidogrel [Plavix] 75 mg PO QDAY #30 tablet 04/17/19 04/18/19 Unknown Rx Famotidine [Pepcid] 20 mg PO BID #60 tablet 04/17/19 04/18/19 Unknown Rx Fe Fumarate/FA/Mv, Min Comb#15 1 each PO QDAY #30 capsule 04/17/19 04/18/19 Unknown Rx [Hemocyte Plus] levETIRAcetam [Keppra TAB] 500 mg PO 3XW #12 tablet 04/17/19 04/18/19 Unknown Rx levETIRAcetam [Keppra TAB] 500 mg PO BID #60 tablet 04/17/19 04/18/19 Unknown Rx Active Meds: Active Medications Acetaminophen (Tylenol) 650 mg PO Q4H PRN PRN Reason: Pain MILD(1-3)/Fever >100.5/ZIMMERMAN Aspirin (Halfprin Ec) 81 mg PO QDAY [facility] Last Admin: 04/19/19 09:48 Dose: 81 mg Documented by: Carvedilol (Coreg) 25 mg PO BID [facility] Last Admin: 04/19/19 09:50 Dose: 25 mg Documented by: Clopidogrel Bisulfate (Plavix) 75 mg PO QDAY [facility] Last Admin: 04/19/19 09:48 Dose: 75 mg Documented by: Famotidine (Pepcid) 10 mg PO BID [facility] Last Admin: 04/19/19 09:49 Dose: 10 mg Documented by: Furosemide (Lasix) 40 mg PO QDAC [facility] Last Admin: 04/19/19 09:56 Dose: 40 mg Documented by: Heparin Sodium (Porcine) (Heparin) 5,000 unit SUB-Q Q12HR [facility] Last Admin: 04/19/19 09:56 Dose: 5,000 unit Documented by: Hydralazine HCl (Apresoline) 50 mg PO BID [facility] Last Admin: 04/19/19 09:49 Dose: 50 mg Documented by: Levetiracetam (Keppra) 500 mg PO 3XW [facility] Last Admin: 04/19/19 09:49 Dose: 500 mg Documented by: Levetiracetam (Keppra) 500 mg PO BID [facility] Last Admin: 04/19/19 10:18 Dose: Not Given Documented by: Melatonin (Melatonin) 5 mg PO QHS [facility] Last Admin: 04/18/19 22:31 Dose: Not Given Documented by: Morphine Sulfate (Morphine) 2 mg IV Q4H PRN PRN Reason: Pain, Moderate (4-6) Multivit/Ca Carb/B Cmplx/FA/Prenat (Renal Caps) 1 cap PO QDAY [facility] Last Admin: 04/19/19 09:49 Dose: 1 cap Documented by: Multivitamins/Iron (Hemocyte Plus) 1 each PO QDAY [facility] Last Admin: 04/19/19 12:02 Dose: 1 each Documented by: Ondansetron HCl (Zofran) 4 mg IV Q8H PRN PRN Reason: Nausea And Vomiting Pravastatin Sodium (Pravachol) 40 mg PO QHS [facility] Last Admin: 04/18/19 22:31 Dose: Not Given Documented by: Sodium Bicarbonate (Sodium Bicarbonate) 650 mg PO TID [facility] Last Admin: 04/19/19 10:13 Dose: 650 mg Documented by: Sodium Chloride (Sodium Chloride Flush Syringe 10 Ml) 10 ml IV BID [facility] Last Admin: 04/19/19 10:13 Dose: 10 ml Documented by: Sodium Chloride (Sodium Chloride Flush Syringe 10 Ml) 10 ml IV PRN PRN PRN Reason: LINE FLUSH Past psychiatric history - Past Medical History Past Medical History: ESRD - past Psychiatric treatment and history psychiatric treatment history: none - Social History Social history: lives with family Mental Status Exam - Vital signs Last Vital Signs Temp 98.5 F 04/19/19 20:01 Pulse 61 04/19/19 20:01 Resp 18 04/19/19 20:01 BP 122/67 04/19/19 20:01 Pulse Ox 99 04/19/19 20:01 - Exam Narrative exam: unable to assess. patient resting Results Result Diagrams: 04/19/19 03:51 04/19/19 03:51 Abnormal lab results 04/19/19 04/19/19 Range/Units 03:51 03:51 WBC 3.2 L (4.5-11.0) K/mm3 RBC 3.50 L (3.65-5.03) M/mm3 Hgb 10.1 L (11.8-15.2) gm/dl Hct 31.8 L (35.5-45.6) % RDW 16.8 H (13.2-15.2) % Seg Neuts % (Manual) 25.0 L (40.0-70.0) % Lymphocytes % (Manual) 47.0 H (13.4-35.0) % Monocytes % (Manual) 10.0 H (0.0-7.3) % Eosinophils % (Manual) 14.0 H (0.0-4.3) % Basophils % (Manual) 4.0 H (0.0-1.8) % Seg Neutrophils # Man 0.8 L (1.8-7.7) K/mm3 BUN 26 H (9-20) mg/dL Creatinine 5.1 H (0.8-1.5) mg/dL Albumin 3.4 L (3.9-5) g/dL All other labs normal. Assessment and Plan Assessment and plan: Impression: unable to assess Cr 5.1. Medical: Acute Metabolic Encephalopathy per the hospitalist Recommendation/Plan Recommend Delirium precautions below: 1. Frequently reorient patient and involve him/her in their care (simple explanations of procedures, tests, medications). 2. Lights on and shades open during daytime hours. 3. Write date and goals of care in a visible place. 4. Try to avoid unnecessary interruptions to sleep during nighttime hours. 5. Obtain glasses, hearing aids from home if patient uses these at baseline. 6. Avoid medications that may exacerbate delirium (especially narcotics, benzodiazepines, barbiturates, ambien, lunesta, and medications with excessive anticholinergic propert 7. Recommend Haldol 2 mg IM Q6hrs PRN for severe agitation Will staff with Dr Ingris Glez.
[2019-04-19] MEDS ORDERED: NACL 0.9% 100 ML IV PRN (22:11)
[2019-04-19] MEDS: PRAVACHOL PO SCH (23:04)
[2019-04-20 03:26] LABS: Bilirubin,Urine NEG (Negative); Blood,Urine NEG (Negative); Color,Urine Yellow (Yellow); RBC,Urine < 1.0 /HPF (0.0-6.0); Urobilinogen,Urine < 2.0 mg/dL (<2.0)
[2019-04-20] MEDS: COREG PO SCH ×2 (10:04→22:36)
[2019-04-20] MEDS: HALFPRIN EC PO SCH (10:05)
[2019-04-20] MEDS: HEPARIN SUB-Q SCH ×2 (10:05→22:37)
[2019-04-20] MEDS: Renal Caps PO SCH (10:05)
[2019-04-20] MEDS: KEPPRA PO SCH ×3 (10:05→22:36)
[2019-04-20] MEDS: HEMOCYTE PLUS PO SCH (10:05)
[2019-04-20] MEDS: SODIUM CHLORIDE FLUSH SYRINGE 10 ML IV SCH ×2 (10:05→22:37)
[2019-04-20] MEDS: COZAAR PO SCH (10:05)
[2019-04-20] MEDS: PROTONIX PO SCH (10:05)
[2019-04-20] MEDS: PLAVIX PO SCH (10:05)
[2019-04-20] MEDS ORDERED: NACL 0.9 (PRIMING MACHINE ONLY DIALYSIS) MC ONE (10:34)
--- NOTE | 2019-04-20 12:30 | Progress Note ---
Subjective Interval history: Patient was seen today for follow-up of multiple renal related issues he was also seen and supervised on hemodialysis treatment today Tolerating dialysis treatment fairly well According to his he does usually do better postdialysis he is more alert and awake Interdisciplinary notes that also reviewed Events of 24 hours vitals labs intake output medications were reviewed Past medical history: Reviewed Family history: Reviewed Social history: Reviewed Allergies: Reviewed Physical examination: Vitals: Reviewed HEENT: No pallor or icterus oral mucosa moist Neck: Supple no JVD no thyromegaly Chest: Bilateral clear to auscultation anteriorly Heart: Regular rate and rhythm S1-S2 heard no S3-S4 Abdomen: Soft nontender no voluntary guarding rigidity rebound Extremity: Dry skin less than 1+ peripheral edema Psychiatric: No evidence of agitation and aggression noted Dermatology: No petechial rashes neurological: Patient Is much more alert today Labs and x-rays: Reviewed from today Assessment and plan End-stage renal disease: Patient is currently on hemodialysis, and will need to continue with hemodialysis on Saturday schedule seen in supervising hemodialysis, patient is more alert and awake Treatment time will be 4 hours using the central venous catheter For encephalopathy I have discontinued Pepcid Patient does not have any significant edema and hence furosemide was discontinue d Anemia and end-stage renal disease: Monitor hemoglobin and hematocrit erythropoietin as needed. Workup as required Secondary hyperparathyroidism: Check phosphorus and PTH level periodically, binders as needed Dialysis access: Currently working well Malnutrition risk: High consider high-protein diet dietitian evaluation and follow-up in general 1.5 g protein per KG body weight Fluid restriction: 1200 cc per day not to exceed more than that We'll continue to follow and make recommendation for renal standpoint Objective - Vital Signs Vital signs: Vital Signs - 12hr 04/20/19 04/20/19 04/20/19 03:00 06:15 09:02 Temperature 98.0 F Pulse Rate 86 69 Pulse Rate [ 61 Right Brachial] Respiratory 18 18 Rate Blood Pressure 129/72 O2 Sat by Pulse 99 100 Oximetry 04/20/19 04/20/19 04/20/19 09:10 09:20 09:30 Temperature 96.8 F L Pulse Rate 58 L 55 L 59 L Pulse Rate [ Right Brachial] Respiratory 18 Rate Blood Pressure 107/52 109/66 117/68 O2 Sat by Pulse Oximetry 04/20/19 04/20/19 04/20/19 09:45 10:00 10:15 Temperature Pulse Rate 66 65 103 H Pulse Rate [ Right Brachial] Respiratory Rate Blood Pressure 116/62 118/65 97/54 O2 Sat by Pulse 96 Oximetry 04/20/19 04/20/19 04/20/19 10:30 10:45 11:00 Temperature Pulse Rate 69 75 71 Pulse Rate [ Right Brachial] Respiratory Rate Blood Pressure 115/59 103/60 106/70 O2 Sat by Pulse Oximetry - Lab 04/19/19 03:51 04/20/19 13:30 Most recent lab results Calcium 10.0 mg/dL (8.4-10.2) 04/19/19 03:51 Medications & Allergies - Medications Allergies/Adverse Reactions: Allergies No Known Allergies Allergy (Verified 02/25/19 14:44) Home Medications: Home Medications Medication Instructions Recorded Confirmed Last Taken Type Lovastatin 40 mg PO QHS 10/11/16 04/18/19 04/09/19 History Vit D3/Folic Acid/B2/B6/B12 1 each PO DAILY 10/11/16 04/18/19 04/09/19 History [Folgard Tablet] Furosemide [Lasix TAB] 40 mg PO QDAC 04/10/19 04/18/19 04/09/19 History Sodium Bicarbonate 650 mg PO TID 04/10/19 04/18/19 04/09/19 History hydrALAZINE [Apresoline TAB] 50 mg PO QAM&QHS 04/10/19 04/18/19 04/09/19 History Carvedilol [Coreg] 25 mg PO BID #60 tablet 04/15/19 04/18/19 Unknown Rx Folic Acid/Vit B Comp W-C [Renal 1 cap PO QDAY #30 capsule 04/15/19 04/18/19 Unknown Rx Caps] Melatonin [Melatonin 5MG TAB] 5 mg PO QHS #30 tablet 04/15/19 04/18/19 Unknown Rx Aspirin EC [Halfprin EC] 81 mg PO QDAY #30 tablet 04/17/19 04/18/19 Unknown Rx Clopidogrel [Plavix] 75 mg PO QDAY #30 tablet 04/17/19 04/18/19 Unknown Rx Famotidine [Pepcid] 20 mg PO BID #60 tablet 04/17/19 04/18/19 Unknown Rx Fe Fumarate/FA/Mv, Min Comb#15 1 each PO QDAY #30 capsule 04/17/19 04/18/19 Unknown Rx [Hemocyte Plus] levETIRAcetam [Keppra TAB] 500 mg PO 3XW #12 tablet 04/17/19 04/18/19 Unknown Rx levETIRAcetam [Keppra TAB] 500 mg PO BID #60 tablet 04/17/19 04/18/19 Unknown Rx Active Medications: Generic Name Dose Route Start Last Admin Trade Name Freq PRN Reason Stop Dose Admin Acetaminophen 650 mg 04/18/19 17:06 Tylenol PO Q4H PRN Pain MILD(1-3)/Fever >100.5/ZIMMERMAN Aspirin 81 mg 04/19/19 10:00 04/20/19 10:05 Halfprin Ec PO Not Given QDAY [facility] Carvedilol 25 mg 04/18/19 22:00 04/20/19 10:04 Coreg PO Not Given BID [facility] Clopidogrel Bisulfate 75 mg 04/19/19 10:00 04/20/19 10:05 Plavix PO Not Given QDAY [facility] Haloperidol Lactate 2 mg 04/19/19 20:45 Haldol IM Q6H PRN Agitation Heparin Sodium (Porcine) 5,000 unit 04/19/19 10:00 04/20/19 10:05 Heparin SUB-Q Not Given Q12HR [facility] Sodium Chloride 100 mls @ 999 mls/hr 04/19/19 22:11 Nacl 0.9% IV LAUREN PRN Hypotension Levetiracetam 500 mg 04/18/19 22:00 04/20/19 10:05 Keppra PO Not Given BID [facility] Levetiracetam 500 mg 04/20/19 16:00 Keppra PO [id number] [facility] Losartan Potassium 50 mg 04/20/19 10:00 04/20/19 10:05 Cozaar PO Not Given QDAY [facility] Morphine Sulfate 2 mg 04/18/19 17:06 Morphine IV Q4H PRN Pain, Moderate (4-6) Multivit/Ca Carb/B Cmplx/FA/Prenat 1 cap 04/19/19 10:00 04/20/19 10:05 Renal Caps PO Not Given QDAY [facility] Multivitamins/Iron 1 each 04/19/19 10:00 04/20/19 10:05 Hemocyte Plus PO Not Given QDAY [facility] Ondansetron HCl 4 mg 04/18/19 17:06 Zofran IV Q8H PRN Nausea And Vomiting Pantoprazole Sodium 40 mg 04/20/19 10:00 04/20/19 10:05 Protonix PO Not Given QDAY [facility] Pravastatin Sodium 40 mg 04/18/19 22:00 04/19/19 23:04 Pravachol PO 40 mg QHS [facility] Administration Sodium Chloride 10 ml 04/18/19 22:00 04/20/19 10:05 Sodium Chloride Flush Syringe 10 Ml IV Not Given BID [facility] Sodium Chloride 10 ml 04/18/19 17:06 Sodium Chloride Flush Syringe 10 Ml IV PRN PRN LINE FLUSH
--- NOTE | 2019-04-20 12:46 | Progress Note ---
Subjective - Reason for Consult Consult date: 04/20/19 Reason for consult: Psychiatry Follow-up - Chief Complaint Chief complaint: "The patient mumbles" 83 y.o. AA male who presented to the ER for AMS. He presented to [facility] for similar presentation x 3. Today the patient could no be assessed. He mumbles when asked questions. Per the sitter, she stated that the patient's presentation have not changed since the start of her shift at 7 AM. Mental Status Exam - Vital signs Last Vital Signs Temp 96.8 F L 04/20/19 09:10 Pulse 71 04/20/19 11:00 Resp 18 04/20/19 09:10 BP 106/70 04/20/19 11:00 Pulse Ox 96 04/20/19 10:00 - Exam Narrative exam: Unable to complete the MSE because of the patient's condition. Assessment and Plan Impression: Today the patient could not be assessed. Cr 5.1. Medical: Encephalopathy per the hospitalist Recommendation/Plan: Gather more collateral information and reevaluate the patient's 1013 in 24 hours. Recommend Delirium precautions below: 1. Frequently reorient patient and involve him/her in their care (simple explanations of procedures, tests, medications). 2. Lights on and shades open during daytime hours. 3. Write date and goals of care in a visible place. 4. Try to avoid unnecessary interruptions to sleep during nighttime hours. 5. Obtain glasses, hearing aids from home if patient uses these at baseline. 6. Avoid medications that may exacerbate delirium (especially narcotics, benzodiazepines, barbiturates, ambien, lunesta, and medications with excessive anticholinergic property). Dispo: Proper dispo will be determined once collateral information is obtained. Will staff with Dr Ingris Glez.
--- NOTE | 2019-04-20 15:25 | Progress Note ---
Assessment and Plan Assessment and plan: 83 YO Male with ESRD on HD(T,R,Sa), CHF, HTN, HLD, Dementia with Behavioral Disturbance, CAD S/P CABG presents to ED for evaluation. Pt is confused, hallucinating and unable to give history. Pt history provided by who is at bedside during exam and interview. per the patient has experienced i ncreased agitation, tangential thinking over the past 4 days with persistent symptoms over the past 1 day. Pt went to his scheduled dialysis session today and was unable to undergo dialysis. EMS notified, and upon arrival the patient was found to be in distress and transported to [facility]. Pt seen and evaluated in ED and found to have ESRD, Encephalopathy, as well as Dementia with Behavioral Disturbance. Pt admitted to [facility] unit. Nephrology consulted in ED. * Patient has had recurrent admission for same condition, prior plan was for Lanie-psych but prohibited due to Dialysis needs. * Neurology evaluate during last admission and recommended treating underlying UTI. 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 * Keppra was changed to 500mg po BID with extra dose of 500MG After each dialysis. * Patient with delirium- Patient does not appear to have any seizure activity at this time. - Patient Problems ESRD (end stage renal disease) Current Visit: Yes Status: Acute Plan to address problem: * Continue diuresis * Vending Technician following, strict I/O, monitor uop q shift, avoid nephrotoxic agents, SIRS Recently completed abx. will monitor off abx Dementia/ Delirium Current Visit: Yes Status: Acute Qualifiers: Dementia type: vascular dementia Dementia behavioral disturbance: with behavioral disturbance Qualified Code(s): F01.51 - Vascular dementia with behavioral disturbance Plan to address problem: Supportive care, Ativan PRN, continue pre-hospital medication * Psych following, obtaining collaborative information * Patient may possibly be at baseline, as discussion with previous specialist indicate the patient has been with similar condition in the past Encephalopathy- Metabolic Current Visit: Yes Status: Acute Plan to address problem: * Metabolic in nature, Patient will benefit from psych consult and Placement, spouse cannot care for this patient at home due to his clinical needs * As noted above. HTN (hypertension) Current Visit: Yes Status: Acute Qualifiers: Hypertension type: essential hypertension Qualified Code(s): I10 - Essential (primary) hypertension Plan to address problem: Monitor BP q shift, supportive care. HLD (hyperlipidemia) Current Visit: Yes Status: Acute Qualifiers: Hyperlipidemia type: mixed hyperlipidemia Qualified Code(s): E78.2 - Mixed hyperlipidemia Plan to address problem: Statin therapy, low cholesterol diet, DVT prophylaxis Current Visit: Yes Status: Acute Plan to address problem: SCD to BLE while in bed, prophylactic heparin Anticipate discharge in am with Placement. History Interval history: Patient seen and examined, patient was admitted with altered mental status. This morning delirium persist with waxing and waning mentation. Hospitalist Physical - Physical exam Narrative exam: VITAL SIGNS: Reviewed. GENERAL: The patient appears normally developed although chronically ill- appearing., Vital signs as documented. HEAD: No signs of head trauma. Noted temporal wasting EYES: Pupils are equal. Extraocular motions intact. EARS: Hearing grossly intact. MOUTH: Oropharynx is normal. NECK: No adenopathy, no JVD. CHEST: Chest with clear breath sounds bilaterally. No wheezes, rales, or rhonchi. CARDIAC: Regular rate and rhythm. S1 and S2, without murmurs, gallops, or rubs. VASCULAR: No Edema. Peripheral pulses normal and equal in all extremities. ABDOMEN: Soft, non tender and non distended. No rebound or guarding, and no masses palpated. Bowel Sounds normal. MUSCULOSKELETAL: Good range of motion of all major joints. Although gait is not assessed Extremities without clubbing, cyanosis or edema. NEUROLOGIC EXAM: Drowsy but arousable although it lethargic and not following commands or answering question which is different from yesterday on reevaluation decide improved No focal sensory or strength deficits. PSYCHIATRIC: Mood depressed, SKIN: detail exam as documented in skin assessment - Constitutional Vitals: Temp Pulse Resp BP Pulse Ox 97.9 F 70 18 133/78 98 04/20/19 13:46 04/20/19 13:46 04/20/19 13:46 04/20/19 13:46 04/20/19 13:46 General appearance: Present: mild distress, cachectic Results - Labs CBC & Chem 7: 04/19/19 03:51 04/20/19 13:30 Labs: Laboratory Last Values WBC 3.2 K/mm3 (4.5-11.0) L 04/19/19 03:51 RBC 3.50 M/mm3 (3.65-5.03) L 04/19/19 03:51 Hgb 10.1 gm/dl (11.8-15.2) L 04/19/19 03:51 Hct 31.8 % (35.5-45.6) L 04/19/19 03:51 MCV 91 fl (84-94) 04/19/19 03:51 MCH 29 pg (28-32) 04/19/19 03:51 MCHC 32 % (32-34) 04/19/19 03:51 RDW 16.8 % (13.2-15.2) H 04/19/19 03:51 Plt Count 150 K/mm3 (140-440) 04/19/19 03:51 Lymph % (Auto) 28.2 % (13.4-35.0) 04/18/19 13:39 [place] % (Auto) 14.7 % (0.0-7.3) H 04/18/19 13:39 Eos % (Auto) 4.8 % (0.0-4.3) H 04/18/19 13:39 Baso % (Auto) 0.5 % (0.0-1.8) 04/18/19 13:39 Lymph # 1.0 K/mm3 (1.2-5.4) L 04/18/19 13:39 [place] # 0.5 K/mm3 (0.0-0.8) 04/18/19 13:39 Eos # 0.2 K/mm3 (0.0-0.4) 04/18/19 13:39 Baso # 0.0 K/mm3 (0.0-0.1) 04/18/19 13:39 Add Manual Diff Complete 04/19/19 03:51 Total Counted 100 04/19/19 03:51 Seg Neutrophils % Modeling Teacher 04/19/19 03:51 Seg Neuts % (Manual) 25.0 % (40.0-70.0) L 04/19/19 03:51 0 % 04/19/19 03:51 47.0 % (13.4-35.0) H 04/19/19 03:51 Reactive Lymphs % (Man) 0 % 04/19/19 03:51 10.0 % (0.0-7.3) H 04/19/19 03:51 14.0 % (0.0-4.3) H 04/19/19 03:51 4.0 % (0.0-1.8) H 04/19/19 03:51 0 % 04/19/19 03:51 0 % 04/19/19 03:51 0 % 04/19/19 03:51 0 % 04/19/19 03:51 Nucleated RBC % Not Reportable 04/19/19 03:51 Seg Neutrophils # 1.9 K/mm3 (1.8-7.7) 04/18/19 13:39 Seg Neutrophils # Man 0.8 K/mm3 (1.8-7.7) L 04/19/19 03:51 Band Neutrophils # 0.0 K/mm3 04/19/19 03:51 1.5 K/mm3 (1.2-5.4) 04/19/19 03:51 Abs React Lymphs (Man) 0.0 K/mm3 04/19/19 03:51 0.3 K/mm3 (0.0-0.8) 04/19/19 03:51 0.4 K/mm3 (0.0-0.4) 04/19/19 03:51 0.1 K/mm3 (0.0-0.1) 04/19/19 03:51 0.0 K/mm3 04/19/19 03:51 0.0 K/mm3 04/19/19 03:51 0.0 K/mm3 04/19/19 03:51 Blast Cells # 0.0 K/mm3 04/19/19 03:51 WBC Morphology Not Reportable 04/19/19 03:51 Hypersegmented Neuts Not Reportable 04/19/19 03:51 Hyposegmented Neuts Not Reportable 04/19/19 03:51 Hypogranular Neuts Not Reportable 04/19/19 03:51 Not Reportable 04/19/19 03:51 Not Reportable 04/19/19 03:51 Not Reportable 04/19/19 03:51 Not Reportable 04/19/19 03:51 Not Reportable 04/19/19 03:51 Not Reportable 04/19/19 03:51 Consistent w auto 04/19/19 03:51 Not Reportable 04/19/19 03:51 Plt Clumps, EDTA Not Reportable 04/19/19 03:51 Not Reportable 04/19/19 03:51 Not Reportable 04/19/19 03:51 Not Reportable 04/19/19 03:51 Plt Morphology Comment Not Reportable 04/19/19 03:51 RBC Morphology Not Reportable 04/19/19 03:51 Dimorphic RBCs Not Reportable 04/19/19 03:51 Not Reportable 04/19/19 03:51 Not Reportable 04/19/19 03:51 Not Reportable 04/19/19 03:51 1+ 04/19/19 03:51 Not Reportable 04/19/19 03:51 Not Reportable 04/19/19 03:51 Not Reportable 04/19/19 03:51 Not Reportable 04/19/19 03:51 Not Reportable 04/19/19 03:51 Not Reportable 04/19/19 03:51 Not Reportable 04/19/19 03:51 Not Reportable 04/19/19 03:51 Not Reportable 04/19/19 03:51 Not Reportable 04/19/19 03:51 Not Reportable 04/19/19 03:51 Not Reportable 04/19/19 03:51 Not Reportable 04/19/19 03:51 Not Reportable 04/19/19 03:51 Not Reportable 04/19/19 03:51 Acanthocytes (Spur) Not Reportable 04/19/19 03:51 Rouleaux Not Reportable 04/19/19 03:51 Not Reportable 04/19/19 03:51 Not Reportable 04/19/19 03:51 Not Reportable 04/19/19 03:51 Not Reportable 04/19/19 03:51 Hem Pathologist Commnt No 04/19/19 03:51 Sodium 140 mmol/L (137-145) 04/19/19 03:51 Potassium 4.1 mmol/L (3.6-5.0) 04/19/19 03:51 Chloride 102.5 mmol/L (98-107) 04/19/19 03:51 Carbon Dioxide 24 mmol/L (22-30) 04/19/19 03:51 18 mmol/L 04/19/19 03:51 BUN 8 mg/dL (9-20) L 04/20/19 13:30 5.1 mg/dL (0.8-1.5) H 04/19/19 03:51 Estimated GFR 13 ml/min 04/19/19 03:51 5 % 04/19/19 03:51 Glucose 90 mg/dL (75-100) 04/19/19 03:51 Calcium 10.0 mg/dL (8.4-10.2) 04/19/19 03:51 0.40 mg/dL (0.1-1.2) 04/19/19 03:51 AST 26 units/L (5-40) 04/19/19 03:51 ALT 23 units/L (7-56) 04/19/19 03:51 51 units/L (35-129) 04/19/19 03:51 32.0 umol/L (25-60) 04/18/19 13:39 6.6 g/dL (6.3-8.2) 04/19/19 03:51 3.4 g/dL (3.9-5) L 04/19/19 03:51 1.1 % 04/19/19 03:51 TSH 0.943 mlU/mL (0.270-4.200) 04/18/19 13:39 PTH Intact 279.9 pg/mL (15-65) H 04/18/19 17:29 Yellow (Yellow) 04/20/19 02:50 Slightly-cloudy (Clear) 04/20/19 02:50 7.0 (5.0-7.0) 04/20/19 02:50 Ur Specific [place] 1.009 (1.003-1.030) 04/20/19 02:50 30 mg/dl mg/dL (Negative) 04/20/19 02:50 Neg mg/dL (Negative) 04/20/19 02:50 Neg mg/dL (Negative) 04/20/19 02:50 Neg (Negative) 04/20/19 02:50 Neg (Negative) 04/20/19 02:50 Neg (Negative) 04/20/19 02:50 < 2.0 mg/dL (<2.0) 04/20/19 02:50 Ur Leukocyte Esterase Neg (Negative) 04/20/19 02:50 1.0 /HPF (0.0-6.0) 04/20/19 02:50 < 1.0 /HPF (0.0-6.0) 04/20/19 02:50 Plasma/Serum Alcohol < 0.01 % (0-0.07) 04/18/19 17:29 Active Medications - Current Medications Current Medications: Generic Name Dose Route Start Last Admin Trade Name Freq PRN Reason Stop Dose Admin Acetaminophen 650 mg 04/18/19 17:06 Tylenol PO Q4H PRN Pain MILD(1-3)/Fever >100.5/ZIMMERMAN Aspirin 81 mg 04/19/19 10:00 04/20/19 10:05 Halfprin Ec PO Not Given QDAY [facility] Carvedilol 25 mg 04/18/19 22:00 04/20/19 10:04 Coreg PO Not Given BID [facility] Clopidogrel Bisulfate 75 mg 04/19/19 10:00 04/20/19 10:05 Plavix PO Not Given QDAY [facility] Haloperidol Lactate 2 mg 04/19/19 20:45 Haldol IM Q6H PRN Agitation Heparin Sodium (Porcine) 5,000 unit 04/19/19 10:00 04/20/19 10:05 Heparin SUB-Q Not Given Q12HR [facility] Sodium Chloride 100 mls @ 999 mls/hr 04/19/19 22:11 Nacl 0.9% IV LAUREN PRN Hypotension Levetiracetam 500 mg 04/18/19 22:00 04/20/19 10:05 Keppra PO Not Given BID [facility] Levetiracetam 500 mg 04/20/19 16:00 Keppra PO [id number] [facility] Losartan Potassium 50 mg 04/20/19 10:00 04/20/19 10:05 Cozaar PO Not Given QDAY [facility] Morphine Sulfate 2 mg 04/18/19 17:06 Morphine IV Q4H PRN Pain, Moderate (4-6) Multivit/Ca Carb/B Cmplx/FA/Prenat 1 cap 04/19/19 10:00 04/20/19 10:05 Renal Caps PO Not Given QDAY [facility] Multivitamins/Iron 1 each 04/19/19 10:00 04/20/19 10:05 Hemocyte Plus PO Not Given QDAY [facility] Ondansetron HCl 4 mg 04/18/19 17:06 Zofran IV Q8H PRN Nausea And Vomiting Pantoprazole Sodium 40 mg 04/20/19 10:00 04/20/19 10:05 Protonix PO Not Given QDAY DAVID Pravastatin Sodium 40 mg 04/18/19 22:00 04/19/19 23:04 Pravachol PO 40 mg QHS DAVID Administration Sodium Chloride 10 ml 04/18/19 22:00 04/20/19 10:05 Sodium Chloride Flush Syringe 10 Ml IV Not Given BID DAVID Sodium Chloride 10 ml 04/18/19 17:06 Sodium Chloride Flush Syringe 10 Ml IV PRN PRN LINE FLUSH
[2019-04-20] MEDS: SODIUM BICARBONATE PO SCH ×2 (20:04→20:05)
[2019-04-20] MEDS: PEPCID PO SCH (20:05)
[2019-04-20] MEDS: APRESOLINE PO SCH (20:05)
[2019-04-20] MEDS: MELATONIN PO SCH (20:05)
[2019-04-20] MEDS: PRAVACHOL PO SCH (22:36)
[2019-04-20] MEDS: HALDOL IM PRN (23:05)
[2019-04-21 06:21] LABS: Hematocrit 32.9 % (35.5-45.6); Hemoglobin 10.6 gm/dl (11.8-15.2); Mean Corpuscular HGB Conc 32 % (32-34); Mean Corpuscular Volume 91 fl (84-94); Platelet Count 174 K/mm3 (140-440); Red Blood Count 3.63 M/mm3 (3.65-5.03); Red Cell Distribution Width 17.7 % (13.2-15.2)
[2019-04-21 06:38] LABS: Calcium 9.6 mg/dL (8.4-10.2)
[2019-04-21] MEDS: HEMOCYTE PLUS PO SCH (09:01)
[2019-04-21] MEDS: COZAAR PO SCH (09:01)
[2019-04-21] MEDS: PROTONIX PO SCH (09:02)
[2019-04-21] MEDS: Renal Caps PO SCH (09:02)
[2019-04-21] MEDS: PLAVIX PO SCH (09:02)
[2019-04-21] MEDS: HALFPRIN EC PO SCH (09:02)
[2019-04-21] MEDS: SODIUM CHLORIDE FLUSH SYRINGE 10 ML IV SCH ×2 (09:02→21:58)
[2019-04-21] MEDS: KEPPRA PO SCH ×2 (09:02→21:57)
[2019-04-21] MEDS: HEPARIN SUB-Q SCH ×2 (09:02→21:57)
[2019-04-21] MEDS: COREG PO SCH ×2 (09:02→21:57)
--- NOTE | 2019-04-21 10:37 | Progress Note ---
Assessment and Plan Impression: * End stage renal disease * Altered mental status * Hypertension * Dementia * Hypokalemia * Anemia secondary to ESRD * Leukopenia Plan: * Continue HD MWF * UF as tolerated * Psychiatry note reviewed * Dose medications for renal function * Viki diet * Epogen TIW Subjective Date of service: 04/21/19 Interval history: Patient has no complaints. Chart reviewed. Objective - Vital Signs Vital signs: Vital Signs - 12hr 04/21/19 04/21/19 04/21/19 02:32 03:00 07:25 Temperature 98.1 F 98.7 F Pulse Rate 78 76 Respiratory 18 20 18 Rate Blood Pressure 146/81 132/69 [Right] O2 Sat by Pulse 98 98 99 Oximetry - General Appearance General appearance: well-developed EENT: ATNC Respiratory: Present: Clear to Ascultation Cardiology: regular, S1S2 Gastrointestinal: normal, tenderness, distended Integumentary: no rash, warm and dry Neurologic: other (patient not oriented to place, year) Musculoskeletal: other (no edema) Psychiatric: cooperative - Lab 04/21/19 05:31 04/21/19 05:31 Most recent lab results Calcium 9.6 mg/dL (8.4-10.2) 04/21/19 05:31 Medications & Allergies - Medications Allergies/Adverse Reactions: Allergies No Known Allergies Allergy (Verified 02/25/19 14:44) Home Medications: Home Medications Medication Instructions Recorded Confirmed Last Taken Type Lovastatin 40 mg PO QHS 10/11/16 04/18/19 04/09/19 History Vit D3/Folic Acid/B2/B6/B12 1 each PO DAILY 10/11/16 04/18/19 04/09/19 History [Folgard Tablet] Furosemide [Lasix TAB] 40 mg PO QDAC 04/10/19 04/18/19 04/09/19 History Sodium Bicarbonate 650 mg PO TID 04/10/19 04/18/19 04/09/19 History hydrALAZINE [Apresoline TAB] 50 mg PO QAM&QHS 04/10/19 04/18/19 04/09/19 History Carvedilol [Coreg] 25 mg PO BID #60 tablet 04/15/19 04/18/19 Unknown Rx Folic Acid/Vit B Comp W-C [Renal 1 cap PO QDAY #30 capsule 04/15/19 04/18/19 Unknown Rx Caps] Melatonin [Melatonin 5MG TAB] 5 mg PO QHS #30 tablet 04/15/19 04/18/19 Unknown Rx Aspirin EC [Halfprin EC] 81 mg PO QDAY #30 tablet 04/17/19 04/18/19 Unknown Rx Clopidogrel [Plavix] 75 mg PO QDAY #30 tablet 04/17/19 04/18/19 Unknown Rx Famotidine [Pepcid] 20 mg PO BID #60 tablet 04/17/19 04/18/19 Unknown Rx Fe Fumarate/FA/Mv, Min Comb#15 1 each PO QDAY #30 capsule 04/17/19 04/18/19 Unknown Rx [Hemocyte Plus] levETIRAcetam [Keppra TAB] 500 mg PO 3XW #12 tablet 04/17/19 04/18/19 Unknown Rx levETIRAcetam [Keppra TAB] 500 mg PO BID #60 tablet 04/17/19 04/18/19 Unknown Rx Active Medications: Generic Name Dose Route Start Last Admin Trade Name Leo PRN Reason Stop Dose Admin Acetaminophen 650 mg 04/18/19 17:06 Tylenol PO Q4H PRN Pain MILD(1-3)/Fever >100.5/ZIMMERMAN Aspirin 81 mg 04/19/19 10:00 04/21/19 09:02 Halfprin Ec PO 81 mg QDAY DAVID Administration Carvedilol 25 mg 04/18/19 22:00 04/21/19 09:02 Coreg PO 25 mg BID DAVID Administration Clopidogrel Bisulfate 75 mg 04/19/19 10:00 04/21/19 09:02 Plavix PO 75 mg QDAY DAVID Administration Haloperidol Lactate 2 mg 04/19/19 20:45 04/20/19 23:05 Haldol IM 2 mg Q6H PRN Administration Agitation Heparin Sodium (Porcine) 5,000 unit 04/19/19 10:00 04/21/19 09:02 Heparin SUB-Q 5,000 unit Q12HR DAVID Administration Sodium Chloride 100 mls @ 999 mls/hr 04/19/19 22:11 Nacl 0.9% IV LAUREN PRN Hypotension Levetiracetam 500 mg 04/18/19 22:00 04/21/19 09:02 Keppra PO 500 mg BID DAVID Administration Levetiracetam 500 mg 04/20/19 16:00 08/12/19 17:52 Keppra PO 500 mg [id number] DAVID Administration Losartan Potassium 50 mg 04/20/19 10:00 04/21/19 09:01 Cozaar PO 50 mg QDAY DAVID Administration Morphine Sulfate 2 mg 04/18/19 17:06 Morphine IV Q4H PRN Pain, Moderate (4-6) Multivit/Ca Carb/B Cmplx/FA/Prenat 1 cap 04/19/19 10:00 04/21/19 09:02 Renal Caps PO 1 cap QDAY DAVID Administration Multivitamins/Iron 1 each 04/19/19 10:00 04/21/19 09:01 Hemocyte Plus PO 1 each QDAY DAVID Administration Ondansetron HCl 4 mg 04/18/19 17:06 Zofran IV Q8H PRN Nausea And Vomiting Pantoprazole Sodium 40 mg 04/20/19 10:00 04/21/19 09:02 Protonix PO 40 mg QDAY DAVID Administration Pravastatin Sodium 40 mg 04/18/19 22:00 04/20/19 22:36 Pravachol PO 40 mg QHS DAVID Administration Sodium Chloride 10 ml 04/18/19 22:00 04/21/19 09:02 Sodium Chloride Flush Syringe 10 Ml IV 10 ml BID DAVID Administration Sodium Chloride 10 ml 04/18/19 17:06 Sodium Chloride Flush Syringe 10 Ml IV PRN PRN LINE FLUSH
--- NOTE | 2019-04-21 14:36 | Progress Note ---
Assessment and Plan Assessment and plan: 83 YO Male with ESRD on HD(T,R,Sa), CHF, HTN, HLD, Dementia with Behavioral Disturbance, CAD S/P CABG presents to ED for evaluation. Pt is confused, hallucinating and unable to give history. Pt history provided by who is at bedside during exam and interview. per the patient has experienced increased agitation, tangential thinking over the past 4 days with persistent symptoms over the past 1 day. Pt went to his scheduled dialysis session today and was unable to undergo dialysis. EMS notified, and upon arrival the patient was found to be in distress and transported to [facility]. Pt seen and evaluated in ED and found to have ESRD, Encephalopathy, as well as Dementia with Behavioral Disturbance. Pt admitted to [facility] unit. Nephrology consulted in ED. Patient has had recurrent admission for same condition, prior plan was for Lanie-psych but prohibited due to Dialysis needs. Neurology evaluate during last admission and recommended treating underlying UTI. 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 Keppra was changed to 500mg po BID with extra dose of 500MG After each dialysis. Patient with delirium- Patient does not appear to have any seizure activity at this time. 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 will monitor off abx Dementia/ Delirium Current Visit: Yes Status: Acute Qualifiers: Dementia type: vascular dementia Dementia behavioral disturbance: with behavioral disturbance Qualified Code(s): F01.51 - Vascular dementia with behavioral disturbance Plan to address problem: Supportive care, Ativan PRN, continue pre-hospital medication Psych following, obtaining collaborative information Patient may possibly be at baseline, as discussion with previous specialist indicate the patient has been with similar condition in the past Encephalopathy- Metabolic Current Visit: Yes Status: Acute Plan to address problem: Metabolic in nature, Patient will benefit from psych consult and Placement, spouse cannot care for this patient at home due to his clinical needs As noted above. HTN (hypertension) Current Visit: Yes Status: Acute Qualifiers: Hypertension type: essential hypertension Qualified Code(s): I10 - Essential (primary) hypertension Plan to address problem: Monitor BP q shift, supportive care. HLD (hyperlipidemia) Current Visit: Yes Status: Acute Qualifiers: Hyperlipidemia type: mixed hyperlipidemia Qualified Code(s): E78.2 - Mixed hyperlipidemia Plan to address problem: Statin therapy, low cholesterol diet, DVT prophylaxis Current Visit: Yes Status: Acute Plan to address problem: SCD to BLE while in bed, prophylactic heparin Pending placement Patient didn't exhibit any aggressive behaviors during my examination and no report from nursing staff about aggressive behaviour. History Interval history: Patient was seen and evaluated this morning, patient was confused. Patient didn't exhibit any aggressive behaviors during my examination and no report from nursing staff about aggressive behaviour. Hospitalist Physical - Physical exam Narrative exam: Not in cardiopulmonary distress. The patient appeared well nourished and normally developed. Vital signs as documented. Head exam is unremarkable. No scleral icterus . Neck is without jugular venous distension, thyromegaly, or carotid bruits. Lungs are clear to auscultation. Cardiac exam reveals regular rate and Rhythm. First and second heart sounds normal. No murmurs, rubs or gallops. Abdominal exam reveals normal bowel sounds, no masses, no organomegaly and no aortic enlargement. 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 Patient is on mitten restraints. - Constitutional Vitals: Temp Pulse Resp BP Pulse Ox 97.4 F L 65 18 98/58 97 04/21/19 13:19 08 13:19 04/21/19 13:19 04/21/19 13:19 04/21/19 13:19 General appearance: Present: mild distress, cachectic Results - Labs CBC & Chem 7: 04/21/19 05:31 04/21/19 05:31 Labs: Laboratory Last Values WBC 3.5 K/mm3 (4.5-11.0) L 04/21/19 05:31 RBC 3.63 M/mm3 (3.65-5.03) L 04/21/19 05:31 Hgb 10.6 gm/dl (11.8-15.2) L 04/21/19 05:31 Hct 32.9 % (35.5-45.6) L 04/21/19 05:31 MCV 91 fl (84-94) 04/21/19 05:31 MCH 29 pg (28-32) 04/21/19 05:31 MCHC 32 % (32-34) 04/21/19 05:31 RDW 17.7 % (13.2-15.2) H 04/21/19 05:31 Plt Count 174 K/mm3 (140-440) 04/21/19 05:31 Lymph % (Auto) 28.2 % (13.4-35.0) 04/18/19 13:39 [place] % (Auto) 14.7 % (0.0-7.3) H 04/18/19 13:39 Eos % (Auto) 4.8 % (0.0-4.3) H 04/18/19 13:39 Baso % (Auto) 0.5 % (0.0-1.8) 04/18/19 13:39 Lymph # 1.0 K/mm3 (1.2-5.4) L 04/18/19 13:39 [place] # 0.5 K/mm3 (0.0-0.8) 04/18/19 13:39 Eos # 0.2 K/mm3 (0.0-0.4) 04/18/19 13:39 Baso # 0.0 K/mm3 (0.0-0.1) 04/18/19 13:39 Add Manual Diff Complete 04/19/19 03:51 Total Counted 100 04/19/19 03:51 Seg Neutrophils % Product Promoter 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 Person 04/19/19 03:51 Seg Neuts % (Manual) 25.0 % (40.0-70.0) L 04/19/19 03:51 0 % 04/19/19 03:51 47.0 % (13.4-35.0) H 04/19/19 03:51 Reactive Lymphs % (Man) 0 % 04/19/19 03:51 10.0 % (0.0-7.3) H 04/19/19 03:51 14.0 % (0.0-4.3) H 04/19/19 03:51 4.0 % (0.0-1.8) H 04/19/19 03:51 0 % 04/19/19 03:51 0 % 04/19/19 03:51 0 % 04/19/19 03:51 0 % 04/19/19 03:51 Nucleated RBC % Not Reportable 04/19/19 03:51 Seg Neutrophils # 1.9 K/mm3 (1.8-7.7) 04/18/19 13:39 Seg Neutrophils # Man 0.8 K/mm3 (1.8-7.7) L 04/19/19 03:51 Band Neutrophils # 0.0 K/mm3 04/19/19 03:51 1.5 K/mm3 (1.2-5.4) 04/19/19 03:51 Abs React Lymphs (Man) 0.0 K/mm3 04/19/19 03:51 0.3 K/mm3 (0.0-0.8) 04/19/19 03:51 0.4 K/mm3 (0.0-0.4) 04/19/19 03:51 0.1 K/mm3 (0.0-0.1) 04/19/19 03:51 0.0 K/mm3 04/19/19 03:51 0.0 K/mm3 04/19/19 03:51 0.0 K/mm3 04/19/19 03:51 Blast Cells # 0.0 K/mm3 04/19/19 03:51 WBC Morphology Not Reportable 04/19/19 03:51 Hypersegmented Neuts Not Reportable 04/19/19 03:51 Hyposegmented Neuts Not Reportable 04/19/19 03:51 Hypogranular Neuts Not Reportable 04/19/19 03:51 Not Reportable 04/19/19 03:51 Not Reportable 04/19/19 03:51 Not Reportable 04/19/19 03:51 Not Reportable 04/19/19 03:51 Not Reportable 04/19/19 03:51 Not Reportable 04/19/19 03:51 Consistent w auto 04/19/19 03:51 Not Reportable 04/19/19 03:51 Plt Clumps, EDTA Not Reportable 04/19/19 03:51 Not Reportable 04/19/19 03:51 Not Reportable 04/19/19 03:51 Not Reportable 04/19/19 03:51 Plt Morphology Comment Not Reportable 04/19/19 03:51 RBC Morphology Not Reportable 04/19/19 03:51 Dimorphic RBCs Not Reportable 04/19/19 03:51 Not Reportable 04/19/19 03:51 Not Reportable 04/19/19 03:51 Not Reportable 04/19/19 03:51 1+ 04/19/19 03:51 Not Reportable 04/19/19 03:51 Not Reportable 04/19/19 03:51 Not Reportable 04/19/19 03:51 Not Reportable 04/19/19 03:51 Not Reportable 04/19/19 03:51 Not Reportable 04/19/19 03:51 Not Reportable 04/19/19 03:51 Not Reportable 04/19/19 03:51 Not Reportable 04/19/19 03:51 Not Reportable 04/19/19 03:51 Not Reportable 04/19/19 03:51 Not Reportable 04/19/19 03:51 Not Reportable 04/19/19 03:51 Not Reportable 04/19/19 03:51 Not Reportable 04/19/19 03:51 Acanthocytes (Spur) Not Reportable 04/19/19 03:51 Rouleaux Not Reportable 04/19/19 03:51 Not Reportable 04/19/19 03:51 Not Reportable 04/19/19 03:51 Not Reportable 04/19/19 03:51 Not Reportable 04/19/19 03:51 Hem Pathologist Commnt No 04/19/19 03:51 Sodium 133 mmol/L (137-145) L 04/21/19 05:31 Potassium 4.5 mmol/L (3.6-5.0) 04/21/19 05:31 Chloride 95.2 mmol/L (98-107) L 04/21/19 05:31 Carbon Dioxide 25 mmol/L (22-30) 04/21/19 05:31 17 mmol/L 04/21/19 05:31 BUN 19 mg/dL (9-20) 04/21/19 05:31 3.3 mg/dL (0.8-1.5) H 04/21/19 05:31 Estimated GFR 22 ml/min 04/21/19 05:31 6 % 04/21/19 05:31 Glucose 92 mg/dL (75-100) 04/21/19 05:31 Calcium 9.6 mg/dL (8.4-10.2) 04/21/19 05:31 0.40 mg/dL (0.1-1.2) 04/19/19 03:51 AST 26 units/L (5-40) 04/19/19 03:51 ALT 23 units/L (7-56) 04/19/19 03:51 51 units/L (35-129) 04/19/19 03:51 32.0 umol/L (25-60) 04/18/19 13:39 6.6 g/dL (6.3-8.2) 04/19/19 03:51 3.4 g/dL (3.9-5) L 04/19/19 03:51 1.1 % 04/19/19 03:51 TSH 0.943 mlU/mL (0.270-4.200) 04/18/19 13:39 PTH Intact 279.9 pg/mL (15-65) H 04/18/19 17:29 Yellow (Yellow) 04/20/19 02:50 Slightly-cloudy (Clear) 04/20/19 02:50 7.0 (5.0-7.0) 04/20/19 02:50 Ur Specific [place] 1.009 (1.003-1.030) 04/20/19 02:50 30 mg/dl mg/dL (Negative) 04/20/19 02:50 Neg mg/dL (Negative) 04/20/19 02:50 Neg mg/dL (Negative) 04/20/19 02:50 Neg (Negative) 04/20/19 02:50 Neg (Negative) 04/20/19 02:50 Neg (Negative) 04/20/19 02:50 < 2.0 mg/dL (<2.0) 04/20/19 02:50 Ur Leukocyte Esterase Neg (Negative) 04/20/19 02:50 1.0 /HPF (0.0-6.0) 04/20/19 02:50 < 1.0 /HPF (0.0-6.0) 04/20/19 02:50 Plasma/Serum Alcohol < 0.01 % (0-0.07) 04/18/19 17:29 Active Medications - Current Medications Current Medications: Generic Name Dose Route Start Last Admin Trade Name Freq PRN Reason Stop Dose Admin Acetaminophen 650 mg 04/18/19 17:06 Tylenol PO Q4H PRN Pain MILD(1-3)/Fever >100.5/ZIMMERMAN Aspirin 81 mg 04/19/19 10:00 04/21/19 09:02 Halfprin Ec PO 81 mg QDAY DAVID Administration Carvedilol 25 mg 04/18/19 22:00 04/21/19 09:02 Coreg PO 25 mg BID DAVID Administration Clopidogrel Bisulfate 75 mg 04/19/19 10:00 04/21/19 09:02 Plavix PO 75 mg QDAY DAVID Administration Haloperidol Lactate 2 mg 04/19/19 20:45 04/20/19 23:05 Haldol IM 2 mg Q6H PRN Administration Agitation Heparin Sodium (Porcine) 5,000 unit 04/19/19 10:00 04/21/19 09:02 Heparin SUB-Q 5,000 unit Q12HR DAVID Administration Sodium Chloride 100 mls @ 999 mls/hr 04/19/19 22:11 Nacl 0.9% IV LAUREN PRN Hypotension Levetiracetam 500 mg 04/18/19 22:00 04/21/19 09:02 Keppra PO 500 mg BID DAVDI Administration Levetiracetam 500 mg 04/20/19 16:00 04/20/19 17:52 Keppra PO 500 mg [id number] DAVID Administration Losartan Potassium 50 mg 04/20/19 10:00 04/21/19 09:01 Cozaar PO 50 mg QDAY DAVID Administration Morphine Sulfate 2 mg 04/18/19 17:06 Morphine IV Q4H PRN Pain, Moderate (4-6) Multivit/Ca Carb/B Cmplx/FA/Prenat 1 cap 04/19/19 10:00 04/21/19 09:02 Renal Caps PO 1 cap QDAY DAVID Administration Multivitamins/Iron 1 each 04/19/19 10:00 04/21/19 09:01 Hemocyte Plus PO 1 each QDAY DAVID Administration Ondansetron HCl 4 mg 04/18/19 17:06 Zofran IV Q8H PRN Nausea And Vomiting Pantoprazole Sodium 40 mg 04/20/19 10:00 04/21/19 09:02 Protonix PO 40 mg QDAY DAVID Administration Pravastatin Sodium 40 mg 04/18/19 22:00 04/20/19 22:36 Pravachol PO 40 mg QHS DAVID Administration Sodium Chloride 10 ml 04/18/19 22:00 04/21/19 09:02 Sodium Chloride Flush Syringe 10 Ml IV 10 ml BID DAVID Administration Sodium Chloride 10 ml 04/18/19 17:06 Sodium Chloride Flush Syringe 10 Ml IV PRN PRN LINE FLUSH Nutrition/Malnutrition Assess - Dietary Evaluation Nutrition/Malnutrition Findings: Nutrition Notes Start: 04/20/19 16:27 Freq: Status: Active Protocol: Document 04/20/19 16:27 RM (Rec: 04/20/19 16:29 RM [id number]) Nutrition Notes Need for Assessment generated from: fruit buying grader,MST Initial or Follow up Brief Note Current Diagnosis Acute Kidney Injury, Hypertension,Heart Failure, Hyperlipidemia Other Pertinent Diagnosis ESRD on HD (T//S), Dementia, Encephalopathy Current Diet Renal Labs/Tests Reviewed Pertinent Medications Lasix Height 5 ft 8 in Weight 77 kg [place] Body Weight (kg) 70.00 BMI 25.8 Subjective/Other Information Screened for skin risk and malnutrition. Rayray 19 points. Pt w/sitter at time of visit. Per sitter pt ate all of breakfast. No temporal or orbital wasting . Burn Absent Trauma Absent Nutrition Intervention Revisit per MD consult or patient Sign Off request:
--- NOTE | 2019-04-21 16:00 | Progress Note ---
Subjective - Reason for Consult Consult date: 04/21/19 Reason for consult: Psychiatry Follow-up - Chief Complaint Chief complaint: "Hello " 83 y.o. AA male who presented to the ER for AMS. He presented to [facility] for similar presentation x 3. Today the patient was calm and cooperative during the assessment. He answered some questions when asked. He was able to state his and tell me his 's name. Per the sitter, the patient ate his breakfast this morning. He denies SI/HI's and AVH's. Mental Status Exam - Vital signs Last Vital Signs Temp 97.4 F L 04/21/19 13:19 Pulse 65 04/21/19 13:19 Resp 18 04/21/19 13:19 BP 98/58 04/21/19 13:19 Pulse Ox 97 04/21/19 13:19 - Exam Narrative exam: MSE: Appearance: calm, cooperative Behavior: regular eye contact Speech: regular rate and tone Mood: "okay" Affect: congruent to mood Thought Process: confused Thought Content: denies SI/HI's and AVH's Motor Activity: sitting up in bed Cognition: A/O x2 Insight: limited Judgment: fair Assessment and Plan Impression: Delirium. Today the patient could not be assessed. Cr 3.3. NA 133. DDx: Dementia Medical: Encephalopathy per the hospitalist Recommendation/Plan: Reevaluate the patients' s 1013 in 24 hours. Recommend Delirium precautions below: 1. Frequently reorient patient and involve him/her in their care (simple explanations of procedures, tests, medications). 2. Lights on and shades open during daytime hours. 3. Write date and goals of care in a visible place. 4. Try to avoid unnecessary interruptions to sleep during nighttime hours. 5. Obtain glasses, hearing aids from home if patient uses these at baseline. 6. Avoid medications that may exacerbate delirium (especially narcotics, benzodiazepines, barbiturates, ambien, lunesta, and medications with excessive anticholinergic property). Dispo: The patent is pending [facility] services once discharged. Staffed with Dr Ingris Glez.
[2019-04-21] MEDS: HALDOL IM PRN (17:13)
[2019-04-21] MEDS: PRAVACHOL PO SCH (21:57)
[2019-04-22] MEDS: HEPARIN SUB-Q SCH ×2 (11:17→23:03)
[2019-04-22] MEDS: HALFPRIN EC PO SCH (11:17)
[2019-04-22] MEDS: Renal Caps PO SCH (11:17)
[2019-04-22] MEDS: PLAVIX PO SCH (11:17)
[2019-04-22] MEDS: HEMOCYTE PLUS PO SCH (11:17)
[2019-04-22] MEDS: PROTONIX PO SCH (11:18)
[2019-04-22] MEDS: SODIUM CHLORIDE FLUSH SYRINGE 10 ML IV SCH (11:18)
[2019-04-22] MEDS: KEPPRA PO SCH ×3 (11:18→23:02)
[2019-04-22] MEDS: COZAAR PO SCH (11:19)
[2019-04-22] MEDS: COREG PO SCH (11:19)
--- NOTE | 2019-04-22 13:20 | Progress Note ---
Assessment and Plan Assessment and plan: 83 YO Male with ESRD on HD(T,R,Sa), CHF, HTN, HLD, Dementia with Behavioral Disturbance, CAD S/P CABG presents to ED for evaluation. Pt is confused, hallucinating and unable to give history. Pt history provided by who is at bedside during exam and interview. per the patient has experienced increased agitation, tangential thinking over the past 4 days with persistent symptoms over the past 1 day. Pt went to his scheduled dialysis session today and was unable to undergo dialysis. EMS notified, and upon arrival the patient was found to be in distress and transported to [facility]. Pt seen and evaluated in ED and found to have ESRD, Encephalopathy, as well as Dementia with Behavioral Disturbance. Pt admitted to [facility] unit. Nephrology consulted in ED. Patient has had recurrent admission for same condition, prior plan was for Lanie-psych but prohibited due to Dialysis needs. Neurology evaluate during last admission and recommended treating underlying UTI. 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 Keppra was changed to 500mg po BID with extra dose of 500MG After each dialysis. Patient with delirium- Patient does not appear to have any seizure activity at this time. - Patient Problems ESRD (end stage renal disease) Current Visit: Yes Status: Acute Plan to address problem: Continue diuresis Physical Testing Supervisor following, strict I/O, monitor uop q shift, avoid nephrotoxic agents, SIRS Recently completed abx. will monitor off abx Dementia/ Delirium Current Visit: Yes Status: Acute Qualifiers: Dementia type: vascular dementia Dementia behavioral disturbance: with behavioral disturbance Qualified Code(s): F01.51 - Vascular dementia with behavioral disturbance Plan to address problem: Supportive care, Ativan PRN, continue pre-hospital medication Psych following, obtaining collaborative information Patient may possibly be at baseline, as discussion with previous specialist indicate the patient has been with similar condition in the past Encephalopathy- Metabolic Current Visit: Yes Status: Acute Plan to address problem: Metabolic in nature, Patient will benefit from psych consult and Placement, spouse cannot care for this patient at home due to his clinical needs As noted above. HTN (hypertension) Current Visit: Yes Status: Acute Qualifiers: Hypertension type: essential hypertension Qualified Code(s): I10 - Essential (primary) hypertension Plan to address problem: Monitor BP q shift, supportive care. HLD (hyperlipidemia) Current Visit: Yes Status: Acute Qualifiers: Hyperlipidemia type: mixed hyperlipidemia Qualified Code(s): E78.2 - Mixed hyperlipidemia Plan to address problem: Statin therapy, low cholesterol diet, DVT prophylaxis Current Visit: Yes Status: Acute Plan to address problem: SCD to BLE while in bed, prophylactic heparin Pending placement Patient didn't exhibit any aggressive behaviors during my examination and no report from nursing staff about aggressive behaviour. History Interval history: Patient was seen and evaluated this morning, patient was confused. Patient didn't exhibit any aggressive behaviors during my examination and no report from nursing staff about aggressive behaviour. Hospitalist Physical - Physical exam Narrative exam: Not in cardiopulmonary distress. The patient appeared well nourished and normally developed. Vital signs as documented. Head exam is unremarkable. No scleral icterus . Neck is without jugular venous distension, thyromegaly, or carotid bruits. Lungs are clear to auscultation. Cardiac exam reveals regular rate and Rhythm. First and second heart sounds normal. No murmurs, rubs or gallops. Abdominal exam reveals normal bowel sounds, no masses, no organomegaly and no aortic enlargement. Extremities no edema [employer]PER[employer]ENDENT [employer]: Patient is confused. Patient is on mitten restraints. - Constitutional Vitals: Temp Pulse Resp BP Pulse Ox 97.7 F 62 18 108/70 100 04/22/19 11:19 04/22/19 13:00 04/22/19 11:19 04/22/19 13:00 04/22/19 11:19 General appearance: Present: mild distress, cachectic Results - Labs CBC & Chem 7: 04/21/19 05:31 04/21/19 05:31 Labs: Laboratory Last Values WBC 3.5 K/mm3 (4.5-11.0) L 04/21/19 05:31 RBC 3.63 M/mm3 (3.65-5.03) L 04/21/19 05:31 Hgb 10.6 gm/dl (11.8-15.2) L 04/21/19 05:31 Hct 32.9 % (35.5-45.6) L 04/21/19 05:31 MCV 91 fl (84-94) 04/21/19 05:31 MCH 29 pg (28-32) 04/21/19 05:31 MCHC 32 % (32-34) 04/21/19 05:31 RDW 17.7 % (13.2-15.2) H 04/21/19 05:31 Plt Count 174 K/mm3 (140-440) 04/21/19 05:31 Lymph % (Auto) 28.2 % (13.4-35.0) 04/18/19 13:39 Bennett % (Auto) 14.7 % (0.0-7.3) H 04/18/19 13:39 Eos % (Auto) 4.8 % (0.0-4.3) H 04/18/19 13:39 Baso % (Auto) 0.5 % (0.0-1.8) 04/18/19 13:39 Lymph # 1.0 K/mm3 (1.2-5.4) L 04/18/19 13:39 Bennett # 0.5 K/mm3 (0.0-0.8) 04/18/19 13:39 Eos # 0.2 K/mm3 (0.0-0.4) 04/18/19 13:39 Baso # 0.0 K/mm3 (0.0-0.1) 04/18/19 13:39 Add Manual Diff Complete 04/19/19 03:51 Total Counted 100 04/19/19 03:51 Seg Neutrophils % Claims Assistant 04/19/19 03:51 Seg Neuts % (Manual) 25.0 % (40.0-70.0) L 04/19/19 03:51 0 % 04/19/19 03:51 47.0 % (13.4-35.0) H 04/19/19 03:51 Reactive Lymphs % (Man) 0 % 04/19/19 03:51 10.0 % (0.0-7.3) H 04/19/19 03:51 14.0 % (0.0-4.3) H 04/19/19 03:51 4.0 % (0.0-1.8) H 04/19/19 03:51 0 % 04/19/19 03:51 0 % 04/19/19 03:51 0 % 04/19/19 03:51 0 % 04/19/19 03:51 Nucleated RBC % Not Reportable 04/19/19 03:51 Seg Neutrophils # 1.9 K/mm3 (1.8-7.7) 04/18/19 13:39 Seg Neutrophils # Man 0.8 K/mm3 (1.8-7.7) L 04/19/19 03:51 Band Neutrophils # 0.0 K/mm3 04/19/19 03:51 1.5 K/mm3 (1.2-5.4) 04/19/19 03:51 Abs React Lymphs (Man) 0.0 K/mm3 04/19/19 03:51 0.3 K/mm3 (0.0-0.8) 04/19/19 03:51 0.4 K/mm3 (0.0-0.4) 04/19/19 03:51 0.1 K/mm3 (0.0-0.1) 04/19/19 03:51 0.0 K/mm3 04/19/19 03:51 0.0 K/mm3 04/19/19 03:51 0.0 K/mm3 04/19/19 03:51 Blast Cells # 0.0 K/mm3 04/19/19 03:51 WBC Morphology Not Reportable 04/19/19 03:51 Hypersegmented Neuts Not Reportable 04/19/19 03:51 Hyposegmented Neuts Not Reportable 04/19/19 03:51 Hypogranular Neuts Not Reportable 04/19/19 03:51 Not Reportable 04/19/19 03:51 Not Reportable 04/19/19 03:51 Not Reportable 04/19/19 03:51 Not Reportable 04/19/19 03:51 Not Reportable 04/19/19 03:51 Not Reportable 04/19/19 03:51 Consistent w auto 04/19/19 03:51 Not Reportable 04/19/19 03:51 Plt Clumps, EDTA Not Reportable 04/19/19 03:51 Not Reportable 04/19/19 03:51 Not Reportable 04/19/19 03:51 Not Reportable 04/19/19 03:51 Plt Morphology Comment Not Reportable 04/19/19 03:51 RBC Morphology Not Reportable 04/19/19 03:51 Dimorphic RBCs Not Reportable 04/19/19 03:51 Not Reportable 04/19/19 03:51 Not Reportable 04/19/19 03:51 Not Reportable 04/19/19 03:51 1+ 04/19/19 03:51 Not Reportable 04/19/19 03:51 Not Reportable 04/19/19 03:51 Not Reportable 04/19/19 03:51 Not Reportable 04/19/19 03:51 Not Reportable 04/19/19 03:51 Not Reportable 04/19/19 03:51 Not Reportable 04/19/19 03:51 Not Reportable 04/19/19 03:51 Not Reportable 04/19/19 03:51 Not Reportable 04/19/19 03:51 Not Reportable 04/19/19 03:51 Not Reportable 04/19/19 03:51 Not Reportable 04/19/19 03:51 Not Reportable 04/19/19 03:51 Not Reportable 04/19/19 03:51 Acanthocytes (Spur) Not Reportable 04/19/19 03:51 Rouleaux Not Reportable 04/19/19 03:51 Not Reportable 04/19/19 03:51 Not Reportable 04/19/19 03:51 Not Reportable 04/19/19 03:51 Not Reportable 04/19/19 03:51 Hem Pathologist Commnt No 04/19/19 03:51 Sodium 133 mmol/L (137-145) L 04/21/19 05:31 Potassium 4.5 mmol/L (3.6-5.0) 04/21/19 05:31 Chloride 95.2 mmol/L (98-107) L 04/21/19 05:31 Carbon Dioxide 25 mmol/L (22-30) 04/21/19 05:31 17 mmol/L 04/21/19 05:31 BUN 19 mg/dL (9-20) 04/21/19 05:31 3.3 mg/dL (0.8-1.5) H 04/21/19 05:31 Estimated GFR 22 ml/min 04/21/19 05:31 6 % 04/21/19 05:31 Glucose 92 mg/dL (75-100) 04/21/19 05:31 Calcium 9.6 mg/dL (8.4-10.2) 04/21/19 05:31 0.40 mg/dL (0.1-1.2) 04/19/19 03:51 AST 26 units/L (5-40) 04/19/19 03:51 ALT 23 units/L (7-56) 04/19/19 03:51 51 units/L (35-129) 04/19/19 03:51 32.0 umol/L (25-60) 04/18/19 13:39 6.6 g/dL (6.3-8.2) 04/19/19 03:51 3.4 g/dL (3.9-5) L 04/19/19 03:51 1.1 % 04/19/19 03:51 TSH 0.943 mlU/mL (0.270-4.200) 04/18/19 13:39 PTH Intact 279.9 pg/mL (15-65) H 04/18/19 17:29 Yellow (Yellow) 04/20/19 02:50 Slightly-cloudy (Clear) 04/20/19 02:50 7.0 (5.0-7.0) 04/20/19 02:50 Ur Specific [place] 1.009 (1.003-1.030) 04/20/19 02:50 30 mg/dl mg/dL (Negative) 04/20/19 02:50 Neg mg/dL (Negative) 04/20/19 02:50 Neg mg/dL (Negative) 04/20/19 02:50 Neg (Negative) 04/20/19 02:50 Neg (Negative) 04/20/19 02:50 Neg (Negative) 04/20/19 02:50 < 2.0 mg/dL (<2.0) 04/20/19 02:50 Ur Leukocyte Esterase Neg (Negative) 04/20/19 02:50 1.0 /HPF (0.0-6.0) 04/20/19 02:50 < 1.0 /HPF (0.0-6.0) 04/20/19 02:50 Plasma/Serum Alcohol < 0.01 % (0-0.07) 04/18/19 17:29 Active Medications - Current Medications Current Medications: Generic Name Dose Route Start Last Admin Trade Name Freq PRN Reason Stop Dose Admin Acetaminophen 650 mg 04/18/19 17:06 Tylenol PO Q4H PRN Pain MILD(1-3)/Fever >100.5/ZIMMERMAN Aspirin 81 mg 04/19/19 10:00 04/22/19 11:17 Halfprin Ec PO 81 mg QDAY DAVID Administration Carvedilol 25 mg 04/18/19 22:00 04/22/19 11:19 Coreg PO 25 mg BID DAVID Administration Clopidogrel Bisulfate 75 mg 04/19/19 10:00 04/22/19 11:17 Plavix PO 75 mg QDAY DAVID Administration Haloperidol Lactate 2 mg 04/19/19 20:45 04/21/19 17:13 Haldol IM 2 mg Q6H PRN Administration Agitation Heparin Sodium (Porcine) 5,000 unit 04/19/19 10:00 04/22/19 11:17 Heparin SUB-Q 5,000 unit Q12HR DAVID Administration Sodium Chloride 100 mls @ 999 mls/hr 04/19/19 22:11 Nacl 0.9% IV LAUREN PRN Hypotension Levetiracetam 500 mg 04/18/19 22:00 04/22/19 11:18 Keppra PO 500 mg BID DAVID Administration Levetiracetam 500 mg 04/20/19 16:00 04/20/19 17:52 Keppra PO 500 mg [id number] DAVID Administration Losartan Potassium 50 mg 04/20/19 10:00 04/22/19 11:19 Cozaar PO 50 mg QDAY DAVID Administration Morphine Sulfate 2 mg 04/18/19 17:06 Morphine IV Q4H PRN Pain, Moderate (4-6) Multivit/Ca Carb/B Cmplx/FA/Prenat 1 cap 04/19/19 10:00 04/22/19 11:17 Renal Caps PO 1 cap QDAY DAVID Administration Multivitamins/Iron 1 each 04/19/19 10:00 04/22/19 11:17 Hemocyte Plus PO 1 each QDAY DAVID Administration Ondansetron HCl 4 mg 04/18/19 17:06 04/21/19 18:06 Zofran IV 4 mg Q8H PRN Administration Nausea And Vomiting Pantoprazole Sodium 40 mg 04/20/19 10:00 04/22/19 11:18 Protonix PO 40 mg QDAY DAVID Administration Pravastatin Sodium 40 mg 04/18/19 22:00 04/21/19 21:57 Pravachol PO 40 mg QHS DAVID Administration Sodium Chloride 10 ml 04/18/19 22:00 04/22/19 11:18 Sodium Chloride Flush Syringe 10 Ml IV 10 ml BID DAVID Administration Sodium Chloride 10 ml 04/18/19 17:06 Sodium Chloride Flush Syringe 10 Ml IV PRN PRN LINE FLUSH Nutrition/Malnutrition Assess - Dietary Evaluation Nutrition/Malnutrition Findings: Nutrition Notes Start: 04/20/19 16:27 Freq: Status: Active Protocol: Document 04/20/19 16:27 RM (Rec: 04/20/19 16:29 RM [id number]) Nutrition Notes Need for Assessment generated from: steam pan sponger,MST Initial or Follow up Brief Note Current Diagnosis Acute Kidney Injury, Hypertension,Heart Failure, Hyperlipidemia Other Pertinent Diagnosis ESRD on HD (T//S), Dementia, Encephalopathy Current Diet Renal Labs/Tests Reviewed Pertinent Medications Lasix Height 5 ft 8 in Weight 77 kg [place] Body Weight (kg) 70.00 BMI 25.8 Subjective/Other Information Screened for skin risk and malnutrition. Rayray 19 points. Pt w/sitter at time of visit. Per sitter pt ate all of breakfast. No temporal or orbital wasting . Burn Absent Trauma Absent Nutrition Intervention Revisit per MD consult or patient Sign Off request:
--- NOTE | 2019-04-22 14:03 | Progress Note ---
Subjective - Reason for Consult Consult date: 04/22/19 Reason for consult: Psychiatric Follow-up Evaluation - Chief Complaint Chief complaint: "I feel alright " Patient is a 83 y.o. AA male who presented to the ER for AMS. He presented to [facility] for similar presentation x 3. Today the patient is calm and cooperative during the assessment. He answered some questions when asked but unable to answer all. He was able to state his and tell me his 's name. Patient is alert and oriented x 2. Continues to be confused. Per the sitter, the patient has been asleep. He denies SI/HI's, AVH's, and delusions. No agitation noted/reported. Mental Status Exam - Vital signs Last Vital Signs Temp 97.7 F 04/22/19 11:19 Pulse 62 04/22/19 13:00 Resp 18 04/22/19 11:19 BP 108/70 04/22/19 13:00 Pulse Ox 100 04/22/19 11:19 - Exam Narrative exam: Mental Status Exam Appearance: calm, cooperative Behavior: regular eye contact Speech: regular rate and tone Mood: "I'm alright" Affect: congruent to mood Thought Process: confused Thought Content: denies SI/HI's, AVH's, and delusions Motor Activity: laying in bed Cognition: A/O x 2 Insight: limited Judgment: fair Assessment and Plan Impression: Delirium. Today the patient is calm and cooperative during the assessment. Continues to be confused. No agitation noted/reported. Cr 3.3. NA 133. DDx: Dementia Medical: Encephalopathy per the hospitalist Recommendation/Plan: Reevaluate the patients' s 1013 in 24 hours. Recommend Delirium precautions below: 1. Frequently reorient patient and involve him/her in their care (simple explanations of procedures, tests, medications). 2. Lights on and shades open during daytime hours. 3. Write date and goals of care in a visible place. 4. Try to avoid unnecessary interruptions to sleep during nighttime hours. 5. Obtain glasses, hearing aids from home if patient uses these at baseline. 6. Avoid medications that may exacerbate delirium (especially narcotics, benzodiazepines, barbiturates, ambien, lunesta, and medications with excessive anticholinergic property). Disposition: The patient is pending rehab services once discharged. Staffed with Dr Ingris Glez.
--- NOTE | 2019-04-22 15:25 | Progress Note ---
Assessment and Plan Impression: * End stage renal disease * Altered mental status * Hypertension * Dementia * Hypokalemia * Anemia secondary to ESRD * Leukopenia Plan: * Continue HD MWF * UF as tolerated * SBP 90-100s - Will reduce Coreg to 12.5mg BID * Psychiatry note reviewed * Dose medications for renal function * Viki diet * Epogen TIW Subjective Date of service: 04/22/19 Interval history: No acute events overnight Objective - Vital Signs Vital signs: Vital Signs - 12hr 04/22/19 04/22/19 04/22/19 04:25 04:29 10:00 Temperature 97.4 F L Pulse Rate 74 66 Respiratory 18 Rate Blood Pressure 125/64 O2 Sat by Pulse 96 Oximetry 04/22/19 04/22/19 04/22/19 11:19 12:10 12:30 Temperature 97.7 F Pulse Rate 66 54 L 57 L Respiratory 18 Rate Blood Pressure 122/76 120/71 109/68 O2 Sat by Pulse 100 Oximetry 04/22/19 04/22/19 04/22/19 12:45 13:00 13:15 Temperature Pulse Rate 55 L 62 62 Respiratory Rate Blood Pressure 104/69 108/70 100/57 O2 Sat by Pulse Oximetry 04/22/19 04/22/19 04/22/19 13:30 13:45 14:00 Temperature Pulse Rate 66 64 65 Respiratory Rate Blood Pressure 90/57 94/61 96/63 O2 Sat by Pulse Oximetry - General Appearance General appearance: well-developed, well-nourished Cardiology: regular, S1S2 Gastrointestinal: normal, no tenderness, no distended Integumentary: no rash, warm and dry Psychiatric: cooperative - Lab 04/21/19 05:31 04/21/19 05:31 Most recent lab results Calcium 9.6 mg/dL (8.4-10.2) 04/21/19 05:31 Medications & Allergies - Medications Allergies/Adverse Reactions: Allergies No Known Allergies Allergy (Verified 02/25/19 14:44) Home Medications: Home Medications Medication Instructions Recorded Confirmed Last Taken Type Lovastatin 40 mg PO QHS 10/11/16 04/18/19 04/09/19 History Vit D3/Folic Acid/B2/B6/B12 1 each PO DAILY 10/11/16 04/18/19 04/09/19 History [Folgard Tablet] Furosemide [Lasix TAB] 40 mg PO QDAC 04/10/19 04/18/19 04/09/19 History Sodium Bicarbonate 650 mg PO TID 04/10/19 04/18/19 04/09/19 History hydrALAZINE [Apresoline TAB] 50 mg PO QAM&QHS 04/10/19 04/18/19 04/09/19 History Carvedilol [Coreg] 25 mg PO BID #60 tablet 04/15/19 04/18/19 Unknown Rx Folic Acid/Vit B Comp W-C [Renal 1 cap PO QDAY #30 capsule 04/15/19 04/18/19 Unknown Rx Caps] Melatonin [Melatonin 5MG TAB] 5 mg PO QHS #30 tablet 04/15/19 04/18/19 Unknown Rx Aspirin EC [Halfprin EC] 81 mg PO QDAY #30 tablet 04/17/19 04/18/19 Unknown Rx Clopidogrel [Plavix] 75 mg PO QDAY #30 tablet 04/17/19 04/18/19 Unknown Rx Famotidine [Pepcid] 20 mg PO BID #60 tablet 04/17/19 04/18/19 Unknown Rx Fe Fumarate/FA/Mv, Min Comb#15 1 each PO QDAY #30 capsule 04/17/19 04/18/19 Unknown Rx [Hemocyte Plus] levETIRAcetam [Keppra TAB] 500 mg PO 3XW #12 tablet 04/17/19 04/18/19 Unknown Rx levETIRAcetam [Keppra TAB] 500 mg PO BID #60 tablet 04/17/19 04/18/19 Unknown Rx Active Medications: Generic Name Dose Route Start Last Admin Trade Name Bela PRN Reason Stop Dose Admin Acetaminophen 650 mg 04/18/19 17:06 Tylenol PO Q4H PRN Pain MILD(1-3)/Fever >100.5/ZIMMERMAN Aspirin 81 mg 04/19/19 10:00 04/22/19 11:17 Halfprin Ec PO 81 mg QDAY DAVID Administration Carvedilol 25 mg 04/18/19 22:00 04/22/19 11:19 Coreg PO 25 mg BID DAVID Administration Clopidogrel Bisulfate 75 mg 04/19/19 10:00 04/22/19 11:17 Plavix PO 75 mg QDAY DAVID Administration Haloperidol Lactate 2 mg 04/19/19 20:45 04/21/19 17:13 Haldol IM 2 mg Q6H PRN Administration Agitation Heparin Sodium (Porcine) 5,000 unit 04/19/19 10:00 04/22/19 11:17 Heparin SUB-Q 5,000 unit Q12HR DAVID Administration Sodium Chloride 100 mls @ 999 mls/hr 04/19/19 22:11 Nacl 0.9% IV LAUREN PRN Hypotension Levetiracetam 500 mg 04/18/19 22:00 04/22/19 11:18 Keppra PO 500 mg BID DAVID Administration Levetiracetam 500 mg 04/20/19 16:00 04/20/19 17:52 Keppra PO 500 mg [id number] DAVID Administration Losartan Potassium 50 mg 04/20/19 10:00 04/22/19 11:19 Cozaar PO 50 mg QDAY DAVID Administration Morphine Sulfate 2 mg 04/18/19 17:06 Morphine IV Q4H PRN Pain, Moderate (4-6) Multivit/Ca Carb/B Cmplx/FA/Prenat 1 cap 04/19/19 10:00 04/22/19 11:17 Renal Caps PO 1 cap QDAY DAVID Administration Multivitamins/Iron 1 each 04/19/19 10:00 04/22/19 11:17 Hemocyte Plus PO 1 each QDAY DAVID Administration Ondansetron HCl 4 mg 04/18/19 17:06 04/21/19 18:06 Zofran IV 4 mg Q8H PRN Administration Nausea And Vomiting Pantoprazole Sodium 40 mg 04/20/19 10:00 04/22/19 11:18 Protonix PO 40 mg QDAY DAVID Administration Pravastatin Sodium 40 mg 04/18/19 22:00 04/21/19 21:57 Pravachol PO 40 mg QHS DAVID Administration Sodium Chloride 10 ml 04/18/19 22:00 04/22/19 11:18 Sodium Chloride Flush Syringe 10 Ml IV 10 ml BID DAVID Administration Sodium Chloride 10 ml 04/18/19 17:06 Sodium Chloride Flush Syringe 10 Ml IV PRN PRN LINE FLUSH
[2019-04-22] MEDS: PRAVACHOL PO SCH (23:02)
[2019-04-23] MEDS: SODIUM CHLORIDE FLUSH SYRINGE 10 ML IV SCH ×3 (06:32→22:11)
--- NOTE | 2019-04-23 08:47 | Progress Note ---
Assessment and Plan Impression: * End stage renal disease * Altered mental status * Hypertension * Dementia * Hypokalemia * Anemia secondary to ESRD * Leukopenia Plan: * Continue HD MWF * UF as tolerated * Psychiatry note reviewed * Dose medications for renal function * Viki diet * Epogen TIW Subjective Date of service: 04/23/19 Interval history: No acute events overnight Objective - Vital Signs Vital signs: Vital Signs - 12hr 04/22/19 04/23/19 04/23/19 22:00 04:51 07:34 Temperature 98.6 F 97.9 F Pulse Rate 67 59 L Pulse Rate [ 0 L From Monitor] Respiratory 14 16 Rate Blood Pressure 122/68 110/59 O2 Sat by Pulse 97 100 Oximetry - General Appearance General appearance: well-developed, well-nourished EENT: ATNC Neck: no JVD Gastrointestinal: normal, no tenderness, no distended Integumentary: no rash, warm and dry Neurologic: other (oriented to place and year) Psychiatric: cooperative - Lab 04/21/19 05:31 04/21/19 05:31 Most recent lab results Calcium 9.6 mg/dL (8.4-10.2) 04/21/19 05:31 Medications & Allergies - Medications Allergies/Adverse Reactions: Allergies No Known Allergies Allergy (Verified 02/25/19 14:44) Home Medications: Home Medications Medication Instructions Recorded Confirmed Last Taken Type Lovastatin 40 mg PO QHS 10/11/16 04/18/19 04/09/19 History Vit D3/Folic Acid/B2/B6/B12 1 each PO DAILY 10/11/16 04/18/19 04/09/19 History [Folgard Tablet] Furosemide [Lasix TAB] 40 mg PO QDAC 04/10/19 04/18/19 04/09/19 History Sodium Bicarbonate 650 mg PO TID 04/10/19 04/18/19 04/09/19 History hydrALAZINE [Apresoline TAB] 50 mg PO QAM&QHS 04/10/19 04/18/19 04/09/19 History Carvedilol [Coreg] 25 mg PO BID #60 tablet 04/15/19 04/18/19 Unknown Rx Folic Acid/Vit B Comp W-C [Renal 1 cap PO QDAY #30 capsule 04/15/19 04/18/19 Unknown Rx Caps] Melatonin [Melatonin 5MG TAB] 5 mg PO QHS #30 tablet 04/15/19 04/18/19 Unknown Rx Aspirin EC [Halfprin EC] 81 mg PO QDAY #30 tablet 04/17/19 04/18/19 Unknown Rx Clopidogrel [Plavix] 75 mg PO QDAY #30 tablet 04/17/19 04/18/19 Unknown Rx Famotidine [Pepcid] 20 mg PO BID #60 tablet 04/17/19 04/18/19 Unknown Rx Fe Fumarate/FA/Mv, Min Comb#15 1 each PO QDAY #30 capsule 04/17/19 04/18/19 Unknown Rx [Hemocyte Plus] levETIRAcetam [Keppra TAB] 500 mg PO 3XW #12 tablet 04/17/19 04/18/19 Unknown Rx levETIRAcetam [Keppra TAB] 500 mg PO BID #60 tablet 04/17/19 04/18/19 Unknown Rx Active Medications: Generic Name Dose Route Start Last Admin Trade Name Freq PRN Reason Stop Dose Admin Acetaminophen 650 mg 04/18/19 17:06 Tylenol PO Q4H PRN Pain MILD(1-3)/Fever >100.5/ZIMMERMAN Aspirin 81 mg 04/19/19 10:00 04/22/19 11:17 Halfprin Ec PO 81 mg QDAY DAVID Administration Carvedilol 12.5 mg 04/23/19 09:00 Coreg PO BID DAVID Clopidogrel Bisulfate 75 mg 04/19/19 10:00 04/22/19 11:17 Plavix PO 75 mg QDAY DAVID Administration Haloperidol Lactate 2 mg 04/19/19 20:45 04/21/19 17:13 Haldol IM 2 mg Q6H PRN Administration Agitation Heparin Sodium (Porcine) 5,000 unit 04/19/19 10:00 04/22/19 23:03 Heparin SUB-Q 5,000 unit Q12HR DAVID Administration Sodium Chloride 100 mls @ 999 mls/hr 04/19/19 22:11 Nacl 0.9% IV LAUREN PRN Hypotension Levetiracetam 500 mg 04/18/19 22:00 04/22/19 23:02 Keppra PO 500 mg BID DAVID Administration Levetiracetam 500 mg 04/20/19 16:00 04/22/19 17:41 Keppra PO 500 mg [id number] DAVID Administration Losartan Potassium 50 mg 04/20/19 10:00 04/22/19 11:19 Cozaar PO 50 mg QDAY DAVID Administration Morphine Sulfate 2 mg 04/18/19 17:06 Morphine IV Q4H PRN Pain, Moderate (4-6) Multivit/Ca Carb/B Cmplx/FA/Prenat 1 cap 04/19/19 10:00 04/22/19 11:17 Renal Caps PO 1 cap QDAY DAVID Administration Multivitamins/Iron 1 each 04/19/19 10:00 04/22/19 11:17 Hemocyte Plus PO 1 each QDAY DAVID Administration Ondansetron HCl 4 mg 04/18/19 17:06 04/21/19 18:06 Zofran IV 4 mg Q8H PRN Administration Nausea And Vomiting Pantoprazole Sodium 40 mg 04/20/19 10:00 04/22/19 11:18 Protonix PO 40 mg QDAY DAVID Administration Pravastatin Sodium 40 mg 04/18/19 22:00 04/22/19 23:02 Pravachol PO 40 mg QHS DAVID Administration Sodium Chloride 10 ml 04/18/19 22:00 04/23/19 06:32 Sodium Chloride Flush Syringe 10 Ml IV Not Given BID DAVID Sodium Chloride 10 ml 04/18/19 17:06 Sodium Chloride Flush Syringe 10 Ml IV PRN PRN LINE FLUSH
[2019-04-23] MEDS ORDERED: NACL 0.9 (PRIMING MACHINE ONLY DIALYSIS) MC ONE (08:54)
[2019-04-23] MEDS: HEPARIN SUB-Q SCH ×2 (09:38→22:05)
[2019-04-23] MEDS: Renal Caps PO SCH (09:39)
[2019-04-23] MEDS: PROTONIX PO SCH (09:39)
[2019-04-23] MEDS: KEPPRA PO SCH ×2 (09:39→22:07)
[2019-04-23] MEDS: PLAVIX PO SCH (09:40)
[2019-04-23] MEDS: HALFPRIN EC PO SCH (09:40)
[2019-04-23] MEDS: COREG PO SCH ×3 (10:00→22:07)
[2019-04-23] MEDS: HEMOCYTE PLUS PO SCH (11:02)
--- NOTE | 2019-04-23 11:16 | Progress Note ---
Subjective - Reason for Consult Consult date: 04/23/19 Reason for consult: Psychiatry Follow-up - Chief Complaint Chief complaint: "I am okay" 83 y.o. AA male who presented to the ER for AMS. He presented to [facility] for similar presentation x 3. Today the patient was calm and cooperative during the assessment. The patient had more of a circumstantial thought process. He was able to answer questions asked of him. Per collateral information from the patient's Ms Charlene Dove at [phone], she stated that her was never officially dx with Dementia. She stated that his "abnormal behavior" started once he began dialysis March 2019. The patient denies SI/HI's and AVH's. Per the staff, no behavioral disturbances overnight. Mental Status Exam - Vital signs Last Vital Signs Temp 97.9 F 04/23/19 07:34 Pulse 0 L 04/23/19 10:00 Resp 16 04/23/19 07:34 BP 110/59 04/23/19 07:34 Pulse Ox 100 04/23/19 07:34 - Exam Narrative exam: MSE: Appearance: calm, cooperative Behavior: regular eye contact Speech: regular rate and tone Mood: "okay" Affect: congruent to mood Thought Process: circumstantial Thought Content: denies SI/HI's and AVH's Motor Activity: sitting up in bed Cognition: A/O x2 Insight: variable Judgment: fair Assessment and Plan Impression: Delirium. Today the patient was calm and cooperative. The patient's mental status has improved. DDx: R/O Dementia Medical: Encephalopathy per the hospitalist Recommendation/Plan: Rescind 1013. Recommend Delirium precautions below: 1. Frequently reorient patient and involve him/her in their care (simple explanations of procedures, tests, medications). 2. Lights on and shades open during daytime hours. 3. Write date and goals of care in a visible place. 4. Try to avoid unnecessary interruptions to sleep during nighttime hours. 5. Obtain glasses, hearing aids from home if patient uses these at baseline. 6. Avoid medications that may exacerbate delirium (especially narcotics, benzodiazepines, barbiturates, ambien, lunesta, and medications with excessive anticholinergic property). Dispo: The patent is pending rehab services once discharged. Will staff with Dr Ingris Glez.
[2019-04-23] MEDS: COZAAR PO SCH (11:44)
--- NOTE | 2019-04-23 12:55 | Progress Note ---
Assessment and Plan Assessment and plan: 83 YO Male with ESRD on HD(T,R,Sa), CHF, HTN, HLD, Dementia with Behavioral Disturbance, CAD S/P CABG presents to ED for evaluation. Pt was confused, hallucinating and unable to give history. Pt history provided by who was at bedside during exam and interview. per the patient has experienced increased agitation, tangential thinking over the past 4 days with persistent symptoms over the past 1 day. Patient went to his scheduled dialysis session today and was unable to undergo dialysis. EMS notified, and upon arrival the patient was found to be in distress and transported to [facility]. Patient seen and evaluated in ED and found to have ESRD, Encephalopathy, as well as Dementia with Behavioral Disturbance. Patient admitted to [facility]O unit. Nephrology consulted in ED. Patient has had recurrent admission for same condition, prior plan was for Lanie-psych but prohibited due to Dialysis needs. Neurology evaluate during last admission and recommended treating underlying UTI. 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 Keppra was changed to 500mg po BID with extra dose of 500MG After each dialysis. Patient with delirium- Patient does not appear to have any seizure activity at this time. - Patient Problems ESRD (end stage renal disease) Current Visit: Yes Status: Acute Plan to address problem: Continue diuresis Professional Security Officer following, strict I/O, monitor uop q shift, avoid nephrotoxic agents, SIRS Recently completed abx. will monitor off abx Dementia/ Delirium Current Visit: Yes Status: Acute Qualifiers: Dementia type: vascular dementia Dementia behavioral disturbance: with behavioral disturbance Qualified Code(s): F01.51 - Vascular dementia with behavioral disturbance Plan to address problem: Supportive care, Ativan PRN, continue pre-hospital medication Psych following, obtaining collaborative information Patient may possibly be at baseline, as discussion with previous specialist indicate the patient has been with similar condition in the past Encephalopathy- Metabolic Current Visit: Yes Status: Acute Plan to address problem: Metabolic in nature, Patient will benefit from psych consult and Placement, spouse cannot care for this patient at home due to his clinical needs As noted above. HTN (hypertension) Current Visit: Yes Status: Acute Qualifiers: Hypertension type: essential hypertension Qualified Code(s): I10 - Essential (primary) hypertension Plan to address problem: Monitor BP q shift, supportive care. HLD (hyperlipidemia) Current Visit: Yes Status: Acute Qualifiers: Hyperlipidemia type: mixed hyperlipidemia Qualified Code(s): E78.2 - Mixed hyperlipidemia Plan to address problem: Statin therapy, low cholesterol diet, DVT prophylaxis Current Visit: Yes Status: Acute Plan to address problem: SCD to BLE while in bed, prophylactic heparin Pending placement Patient was alert and oriented, calm and cooperative. 1013 rescind. History Interval history: Patient was seen and evaluated this morning. Patient was alert and oriented, calm and cooperative during examination. Hospitalist Physical - Physical exam Narrative exam: Not in cardiopulmonary distress. The patient appeared well nourished and normally developed. Vital signs as documented. Head exam is unremarkable. No scleral icterus . Neck is without jugular venous distension, thyromegaly, or carotid bruits. Lungs are clear to auscultation. Cardiac exam reveals regular rate and Rhythm. Abdominal exam reveals normal bowel sounds. Extremities no edema OPTICAL LATHE OPERATOR: Patient was alert and oriented. - Constitutional Vitals: Temp Pulse Resp BP Pulse Ox 97.4 F L 60 20 113/60 98 04/23/19 11:05 04/23/19 11:05 04/23/19 11:05 04/23/19 11:05 04/23/19 11:05 General appearance: Present: mild distress, cachectic Results - Labs CBC & Chem 7: 04/21/19 05:31 04/21/19 05:31 Labs: Laboratory Last Values WBC 3.5 K/mm3 (4.5-11.0) L 04/21/19 05:31 RBC 3.63 M/mm3 (3.65-5.03) L 04/21/19 05:31 Hgb 10.6 gm/dl (11.8-15.2) L 04/21/19 05:31 Hct 32.9 % (35.5-45.6) L 04/21/19 05:31 MCV 91 fl (84-94) 04/21/19 05:31 MCH 29 pg (28-32) 04/21/19 05:31 MCHC 32 % (32-34) 04/21/19 05:31 RDW 17.7 % (13.2-15.2) H 04/21/19 05:31 Plt Count 174 K/mm3 (140-440) 04/21/19 05:31 Lymph % (Auto) 28.2 % (13.4-35.0) 04/18/19 13:39 [place] % (Auto) 14.7 % (0.0-7.3) H 04/18/19 13:39 Eos % (Auto) 4.8 % (0.0-4.3) H 04/18/19 13:39 Baso % (Auto) 0.5 % (0.0-1.8) 04/18/19 13:39 Lymph # 1.0 K/mm3 (1.2-5.4) L 04/18/19 13:39 [place]es # 0.5 K/mm3 (0.0-0.8) 04/18/19 13:39 Eos # 0.2 K/mm3 (0.0-0.4) 04/18/19 13:39 Baso # 0.0 K/mm3 (0.0-0.1) 04/18/19 13:39 Add Manual Diff Complete 04/19/19 03:51 Total Counted 100 04/19/19 03:51 Seg Neutrophils % Senior Network Architect 04/19/19 03:51 Seg Neuts % (Manual) 25.0 % (40.0-70.0) L 04/19/19 03:51 0 % 04/19/19 03:51 47.0 % (13.4-35.0) H 04/19/19 03:51 Reactive Lymphs % (Man) 0 % 04/19/19 03:51 10.0 % (0.0-7.3) H 04/19/19 03:51 14.0 % (0.0-4.3) H 04/19/19 03:51 4.0 % (0.0-1.8) H 04/19/19 03:51 0 % 04/19/19 03:51 0 % 04/19/19 03:51 0 % 04/19/19 03:51 0 % 04/19/19 03:51 Nucleated RBC % Not Reportable 04/19/19 03:51 Seg Neutrophils # 1.9 K/mm3 (1.8-7.7) 04/18/19 13:39 Seg Neutrophils # Man 0.8 K/mm3 (1.8-7.7) L 04/19/19 03:51 Band Neutrophils # 0.0 K/mm3 04/19/19 03:51 1.5 K/mm3 (1.2-5.4) 04/19/19 03:51 Abs React Lymphs (Man) 0.0 K/mm3 04/19/19 03:51 0.3 K/mm3 (0.0-0.8) 04/19/19 03:51 0.4 K/mm3 (0.0-0.4) 04/19/19 03:51 0.1 K/mm3 (0.0-0.1) 04/19/19 03:51 0.0 K/mm3 04/19/19 03:51 0.0 K/mm3 04/19/19 03:51 0.0 K/mm3 04/19/19 03:51 Blast Cells # 0.0 K/mm3 04/19/19 03:51 WBC Morphology Not Reportable 04/19/19 03:51 Hypersegmented Neuts Not Reportable 04/19/19 03:51 Hyposegmented Neuts Not Reportable 04/19/19 03:51 Hypogranular Neuts Not Reportable 04/19/19 03:51 Not Reportable 04/19/19 03:51 Not Reportable 04/19/19 03:51 Not Reportable 04/19/19 03:51 Not Reportable 04/19/19 03:51 Not Reportable 04/19/19 03:51 Not Reportable 04/19/19 03:51 Consistent w auto 04/19/19 03:51 Not Reportable 04/19/19 03:51 Plt Clumps, EDTA Not Reportable 04/19/19 03:51 Not Reportable 04/19/19 03:51 Not Reportable 04/19/19 03:51 Not Reportable 04/19/19 03:51 Plt Morphology Comment Not Reportable 04/19/19 03:51 RBC Morphology Not Reportable 04/19/19 03:51 Dimorphic RBCs Not Reportable 04/19/19 03:51 Not Reportable 04/19/19 03:51 Not Reportable 04/19/19 03:51 Not Reportable 04/19/19 03:51 1+ 04/19/19 03:51 Not Reportable 04/19/19 03:51 Not Reportable 04/19/19 03:51 Not Reportable 04/19/19 03:51 Not Reportable 04/19/19 03:51 Not Reportable 04/19/19 03:51 Not Reportable 04/19/19 03:51 Not Reportable 04/19/19 03:51 Not Reportable 04/19/19 03:51 Not Reportable 04/19/19 03:51 Not Reportable 04/19/19 03:51 Not Reportable 04/19/19 03:51 Not Reportable 04/19/19 03:51 Not Reportable 04/19/19 03:51 Not Reportable 04/19/19 03:51 Not Reportable 04/19/19 03:51 Acanthocytes (Spur) Not Reportable 04/19/19 03:51 Rouleaux Not Reportable 04/19/19 03:51 Not Reportable 04/19/19 03:51 Not Reportable 04/19/19 03:51 Not Reportable 04/19/19 03:51 Not Reportable 04/19/19 03:51 Hem Pathologist Commnt No 04/19/19 03:51 Sodium 133 mmol/L (137-145) L 04/21/19 05:31 Potassium 4.5 mmol/L (3.6-5.0) 04/21/19 05:31 Chloride 95.2 mmol/L (98-107) L 04/21/19 05:31 Carbon Dioxide 25 mmol/L (22-30) 04/21/19 05:31 17 mmol/L 04/21/19 05:31 BUN 19 mg/dL (9-20) 04/21/19 05:31 3.3 mg/dL (0.8-1.5) H 04/21/19 05:31 Estimated GFR 22 ml/min 04/21/19 05:31 6 % 04/21/19 05:31 Glucose 92 mg/dL (75-100) 04/21/19 05:31 Calcium 9.6 mg/dL (8.4-10.2) 04/21/19 05:31 5.3 mg/dL (4.8-5.6) 04/18/19 17:29 0.40 mg/dL (0.1-1.2) 04/19/19 03:51 AST 26 units/L (5-40) 04/19/19 03:51 ALT 23 units/L (7-56) 04/19/19 03:51 51 units/L (35-129) 04/19/19 03:51 32.0 umol/L (25-60) 04/18/19 13:39 6.6 g/dL (6.3-8.2) 04/19/19 03:51 3.4 g/dL (3.9-5) L 04/19/19 03:51 1.1 % 04/19/19 03:51 TSH 0.943 mlU/mL (0.270-4.200) 04/18/19 13:39 PTH Intact 279.9 pg/mL (15-65) H 04/18/19 17:29 Yellow (Yellow) 04/20/19 02:50 Slightly-cloudy (Clear) 04/20/19 02:50 7.0 (5.0-7.0) 04/20/19 02:50 Ur Specific [place] 1.009 (1.003-1.030) 04/20/19 02:50 30 mg/dl mg/dL (Negative) 04/20/19 02:50 Neg mg/dL (Negative) 04/20/19 02:50 Neg mg/dL (Negative) 04/20/19 02:50 Neg (Negative) 04/20/19 02:50 Neg (Negative) 04/20/19 02:50 Neg (Negative) 04/20/19 02:50 < 2.0 mg/dL (<2.0) 04/20/19 02:50 Ur Leukocyte Esterase Neg (Negative) 04/20/19 02:50 1.0 /HPF (0.0-6.0) 04/20/19 02:50 < 1.0 /HPF (0.0-6.0) 04/20/19 02:50 Plasma/Serum Alcohol < 0.01 % (0-0.07) 04/18/19 17:29 Active Medications - Current Medications Current Medications: Generic Name Dose Route Start Last Admin Trade Name Freq PRN Reason Stop Dose Admin Acetaminophen 650 mg 04/18/19 17:06 Tylenol PO Q4H PRN Pain MILD(1-3)/Fever >100.5/ZIMMERMAN Aspirin 81 mg 04/19/19 10:00 04/23/19 09:40 Halfprin Ec PO 81 mg QDAY DAVID Administration Carvedilol 12.5 mg 04/23/19 09:00 04/23/19 10:00 Coreg PO 12.5 mg BID DAVID Administration Clopidogrel Bisulfate 75 mg 04/19/19 10:00 04/23/19 09:40 Plavix PO 75 mg QDAY DAVID Administration Haloperidol Lactate 2 mg 04/19/19 20:45 04/21/19 17:13 Haldol IM 2 mg Q6H PRN Administration Agitation Heparin Sodium (Porcine) 5,000 unit 04/19/19 10:00 04/23/19 09:38 Heparin SUB-Q 5,000 unit Q12HR DAVID Administration Sodium Chloride 100 mls @ 999 mls/hr 04/19/19 22:11 Nacl 0.9% IV LAUREN PRN Hypotension Levetiracetam 500 mg 04/18/19 22:00 04/23/19 09:39 Keppra PO 500 mg BID DAVID Administration Levetiracetam 500 mg 04/20/19 16:00 04/22/19 17:41 Keppra PO 500 mg [id number] DAVID Administration Losartan Potassium 50 mg 04/20/19 10:00 04/23/19 11:44 Cozaar PO Not Given QDAY DAVID Morphine Sulfate 2 mg 04/18/19 17:06 Morphine IV Q4H PRN Pain, Moderate (4-6) Multivit/Ca Carb/B Cmplx/FA/Prenat 1 cap 04/19/19 10:00 04/23/19 09:39 Renal Caps PO 1 cap QDAY DAVID Administration Multivitamins/Iron 1 each 04/19/19 10:00 04/23/19 11:02 Hemocyte Plus PO 1 each QDAY DAVID Administration Ondansetron HCl 4 mg 04/18/19 17:06 04/21/19 18:06 Zofran IV 4 mg Q8H PRN Administration Nausea And Vomiting Pantoprazole Sodium 40 mg 04/20/19 10:00 04/23/19 09:39 Protonix PO 40 mg QDAY DAVID Administration Pravastatin Sodium 40 mg 04/18/19 22:00 04/22/19 23:02 Pravachol PO 40 mg QHS DAVID Administration Sodium Chloride 10 ml 04/18/19 22:00 04/23/19 09:44 Sodium Chloride Flush Syringe 10 Ml IV 10 ml BID DAVID Administration Sodium Chloride 10 ml 04/18/19 17:06 Sodium Chloride Flush Syringe 10 Ml IV PRN PRN LINE FLUSH Nutrition/Malnutrition Assess - Dietary Evaluation Nutrition/Malnutrition Findings: Nutrition Notes Start: 04/20/19 16:27 Freq: Status: Active Protocol: Document 04/20/19 16:27 RM (Rec: 04/20/19 16:29 RM [id number]) Nutrition Notes Need for 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 Rayray 19 points. Pt w/sitter at time of visit. Per sitter pt ate all of breakfast. No temporal or orbital wasting . Burn Absent Trauma Absent Nutrition Intervention Revisit per MD consult or patient Sign Off request:
[2019-04-23] MEDS: PRAVACHOL PO SCH (22:06)
--- NOTE | 2019-04-24 07:19 | Progress Note ---
Assessment and Plan Assessment and plan: 83 YO Male with ESRD on HD(T,R,Sa), CHF, HTN, HLD, Dementia with Behavioral Disturbance, CAD S/P CABG presents to ED for evaluation. Pt was confused, hallucinating and unable to give history. Pt history provided by who was at bedside during exam and interview. per the patient has experienced increased agitation, tangential thinking over the past 4 days with persistent symptoms over the past 1 day. Patient went to his scheduled dialysis session today and was unable to undergo dialysis. EMS notified, and upon arrival the patient was found to be in distress and transported to [facility]. Patient seen and evaluated in ED and found to have ESRD, Encephalopathy, as well as Dementia with Behavioral Disturbance. Patient admitted to [facility] unit. Nephrology consulted in ED. Patient has had recurrent admission for same condition, prior plan was for [facility]-psych but prohibited due to Dialysis needs. Neurology evaluate during last admission and recommended treating underlying UTI. 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 Keppra was changed to 500mg po BID with extra dose of 500MG After each dialysis. Patient with delirium- Patient does not appear to have any seizure activity at this time. - Patient Problems ESRD (end stage renal disease) -Nephrology consulted -Continue dialysis SIRS Recently completed abx. will monitor off abx Resolved Dementia/ Delirium Current Visit: Yes Status: Acute Qualifiers: Dementia type: vascular dementia Dementia behavioral disturbance: with behavioral disturbance Qualified Code(s): F01.51 - Vascular dementia with behavioral disturbance Plan to address problem: Supportive care, Ativan PRN, continue pre-hospital medication Psych following, obtaining collaborative information Patient may possibly be at baseline, as discussion with previous specialist indicate the patient has been with similar condition in the past Encephalopathy- Metabolic Current Visit: Yes Status: Acute Plan to address problem: Metabolic in nature, Patient will benefit from psych consult and Placement, s katherine cannot care for this patient at home due to his clinical needs As noted above. HTN (hypertension) Current Visit: Yes Status: Acute Qualifiers: Hypertension type: essential hypertension Qualified Code(s): I10 - Essential (primary) hypertension Plan to address problem: Monitor BP q shift, supportive care. HLD (hyperlipidemia) Current Visit: Yes Status: Acute Qualifiers: Hyperlipidemia type: mixed hyperlipidemia Qualified Code(s): E78.2 - Mixed hyperlipidemia Plan to address problem: Statin therapy, low cholesterol diet, DVT prophylaxis Current Visit: Yes Status: Acute Plan to address problem: SCD to BLE while in bed, prophylactic heparin Pending placement Patient was alert and oriented, calm and cooperative. 1013 rescind. Pending SNF placement. History Interval history: Patient was seen and evaluated this morning. Patient was alert and oriented, calm and cooperative during examination. Hospitalist Physical - Physical exam Narrative exam: Not in cardiopulmonary distress. The patient appeared well nourished and normally developed. Vital signs as documented. Head exam is unremarkable. No scleral icterus . Neck is without jugular venous distension, thyromegaly, or carotid bruits. Lungs are clear to auscultation. Cardiac exam reveals regular rate and Rhythm. Abdominal exam reveals normal bowel sounds. 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 - Constitutional Vitals: Temp Pulse Resp BP Pulse Ox 98.5 F 66 18 140/74 97 04/24/19 01:44 04/24/19 01:44 04/24/19 01:44 04/24/19 01:44 04/24/19 01:44 General appearance: Present: mild distress, cachectic Results - Labs CBC & Chem 7: 04/21/19 05:31 04/21/19 05:31 Labs: Laboratory Last Values WBC 3.5 K/mm3 (4.5-11.0) L 04/21/19 05:31 RBC 3.63 M/mm3 (3.65-5.03) L 04/21/19 05:31 Hgb 10.6 gm/dl (11.8-15.2) L 04/21/19 05:31 Hct 32.9 % (35.5-45.6) L 04/21/19 05:31 MCV 91 fl (84-94) 04/21/19 05:31 MCH 29 pg (28-32) 04/21/19 05:31 MCHC 32 % (32-34) 04/21/19 05:31 RDW 17.7 % (13.2-15.2) H 04/21/19 05:31 Plt Count 174 K/mm3 (140-440) 04/21/19 05:31 Lymph % (Auto) 28.2 % (13.4-35.0) 04/18/19 13:39 Bollinger % (Auto) 14.7 % (0.0-7.3) H 04/18/19 13:39 Eos % (Auto) 4.8 % (0.0-4.3) H 04/18/19 13:39 Baso % (Auto) 0.5 % (0.0-1.8) 04/18/19 13:39 Lymph # 1.0 K/mm3 (1.2-5.4) L 04/18/19 13:39 Bollinger # 0.5 K/mm3 (0.0-0.8) 04/18/19 13:39 Eos # 0.2 K/mm3 (0.0-0.4) 04/18/19 13:39 Baso # 0.0 K/mm3 (0.0-0.1) 04/18/19 13:39 Add Manual Diff Complete 04/19/19 03:51 Total Counted 100 04/19/19 03:51 Seg Neutrophils % Information Security Specialist 04/19/19 03:51 Seg Neuts % (Manual) 25.0 % (40.0-70.0) L 04/19/19 03:51 0 % 04/19/19 03:51 47.0 % (13.4-35.0) H 04/19/19 03:51 Reactive Lymphs % (Man) 0 % 04/19/19 03:51 10.0 % (0.0-7.3) H 04/19/19 03:51 14.0 % (0.0-4.3) H 04/19/19 03:51 4.0 % (0.0-1.8) H 04/19/19 03:51 0 % 04/19/19 03:51 0 % 04/19/19 03:51 0 % 04/19/19 03:51 0 % 04/19/19 03:51 Nucleated RBC % Not Reportable 04/19/19 03:51 Seg Neutrophils # 1.9 K/mm3 (1.8-7.7) 04/18/19 13:39 Seg Neutrophils # Man 0.8 K/mm3 (1.8-7.7) L 04/19/19 03:51 Band Neutrophils # 0.0 K/mm3 04/19/19 03:51 1.5 K/mm3 (1.2-5.4) 04/19/19 03:51 Abs React Lymphs (Man) 0.0 K/mm3 04/19/19 03:51 0.3 K/mm3 (0.0-0.8) 04/19/19 03:51 0.4 K/mm3 (0.0-0.4) 04/19/19 03:51 0.1 K/mm3 (0.0-0.1) 04/19/19 03:51 0.0 K/mm3 04/19/19 03:51 0.0 K/mm3 04/19/19 03:51 0.0 K/mm3 04/19/19 03:51 Blast Cells # 0.0 K/mm3 04/19/19 03:51 WBC Morphology Not Reportable 04/19/19 03:51 Hypersegmented Neuts Not Reportable 04/19/19 03:51 Hyposegmented Neuts Not Reportable 04/19/19 03:51 Hypogranular Neuts Not Reportable 04/19/19 03:51 Not Reportable 04/19/19 03:51 Not Reportable 04/19/19 03:51 Not Reportable 04/19/19 03:51 Not Reportable 04/19/19 03:51 Not Reportable 04/19/19 03:51 Not Reportable 04/19/19 03:51 Consistent w auto 04/19/19 03:51 Not Reportable 04/19/19 03:51 Plt Clumps, EDTA Not Reportable 04/19/19 03:51 Not Reportable 04/19/19 03:51 Not Reportable 04/19/19 03:51 Not Reportable 04/19/19 03:51 Plt Morphology Comment Not Reportable 04/19/19 03:51 RBC Morphology Not Reportable 04/19/19 03:51 Dimorphic RBCs Not Reportable 04/19/19 03:51 Not Reportable 04/19/19 03:51 Not Reportable 04/19/19 03:51 Not Reportable 04/19/19 03:51 1+ 04/19/19 03:51 Not Reportable 04/19/19 03:51 Not Reportable 04/19/19 03:51 Not Reportable 04/19/19 03:51 Not Reportable 04/19/19 03:51 Not Reportable 04/19/19 03:51 Not Reportable 04/19/19 03:51 Not Reportable 04/19/19 03:51 Not Reportable 04/19/19 03:51 Not Reportable 04/19/19 03:51 Not Reportable 04/19/19 03:51 Not Reportable 04/19/19 03:51 Not Reportable 04/19/19 03:51 Not Reportable 04/19/19 03:51 Not Reportable 04/19/19 03:51 Not Reportable 04/19/19 03:51 Acanthocytes (Spur) Not Reportable 04/19/19 03:51 Rouleaux Not Reportable 04/19/19 03:51 Not Reportable 04/19/19 03:51 Not Reportable 04/19/19 03:51 Not Reportable 04/19/19 03:51 Not Reportable 04/19/19 03:51 Hem Pathologist Commnt No 04/19/19 03:51 Sodium 133 mmol/L (137-145) L 04/21/19 05:31 Potassium 4.5 mmol/L (3.6-5.0) 04/21/19 05:31 Chloride 95.2 mmol/L (98-107) L 04/21/19 05:31 Carbon Dioxide 25 mmol/L (22-30) 04/21/19 05:31 17 mmol/L 04/21/19 05:31 BUN 19 mg/dL (9-20) 04/21/19 05:31 3.3 mg/dL (0.8-1.5) H 04/21/19 05:31 Estimated GFR 22 ml/min 04/21/19 05:31 6 % 04/21/19 05:31 Glucose 92 mg/dL (75-100) 04/21/19 05:31 Calcium 9.6 mg/dL (8.4-10.2) 04/21/19 05:31 5.3 mg/dL (4.8-5.6) 04/18/19 17:29 0.40 mg/dL (0.1-1.2) 04/19/19 03:51 AST 26 units/L (5-40) 04/19/19 03:51 ALT 23 units/L (7-56) 04/19/19 03:51 51 units/L (35-129) 04/19/19 03:51 32.0 umol/L (25-60) 04/18/19 13:39 6.6 g/dL (6.3-8.2) 04/19/19 03:51 3.4 g/dL (3.9-5) L 04/19/19 03:51 1.1 % 04/19/19 03:51 TSH 0.943 mlU/mL (0.270-4.200) 04/18/19 13:39 PTH Intact 279.9 pg/mL (15-65) H 04/18/19 17:29 Yellow (Yellow) 04/20/19 02:50 Slightly-cloudy (Clear) 04/20/19 02:50 7.0 (5.0-7.0) 04/20/19 02:50 Ur Specific Goodells 1.009 (1.003-1.030) 04/20/19 02:50 30 mg/dl mg/dL (Negative) 04/20/19 02:50 Neg mg/dL (Negative) 04/20/19 02:50 Neg mg/dL (Negative) 04/20/19 02:50 Neg (Negative) 04/20/19 02:50 Neg (Negative) 04/20/19 02:50 Neg (Negative) 04/20/19 02:50 < 2.0 mg/dL (<2.0) 04/20/19 02:50 Ur Leukocyte Esterase Neg (Negative) 04/20/19 02:50 1.0 /HPF (0.0-6.0) 04/20/19 02:50 < 1.0 /HPF (0.0-6.0) 04/20/19 02:50 Plasma/Serum Alcohol < 0.01 % (0-0.07) 04/18/19 17:29 Active Medications - Current Medications Current Medications: Generic Name Dose Route Start Last Admin Trade Name Freq PRN Reason Stop Dose Admin Acetaminophen 650 mg 04/18/19 17:06 Tylenol PO Q4H PRN Pain MILD(1-3)/Fever >100.5/ZIMMERMAN Aspirin 81 mg 04/19/19 10:00 04/23/19 09:40 Halfprin Ec PO 81 mg QDAY DAVID Administration Carvedilol 12.5 mg 04/23/19 09:00 04/23/19 22:07 Coreg PO 12.5 mg BID DAVID Administration Clopidogrel Bisulfate 75 mg 04/19/19 10:00 04/23/19 09:40 Plavix PO 75 mg QDAY DAVID Administration Haloperidol Lactate 2 mg 04/19/19 20:45 04/21/19 17:13 Haldol IM 2 mg Q6H PRN Administration Agitation Heparin Sodium (Porcine) 5,000 unit 04/19/19 10:00 04/23/19 22:05 Heparin SUB-Q 5,000 unit Q12HR DAVID Administration Sodium Chloride 100 mls @ 999 mls/hr 04/19/19 22:11 Nacl 0.9% IV LAUREN PRN Hypotension Levetiracetam 500 mg 04/18/19 22:00 04/23/19 22:07 Keppra PO 500 mg BID DAVID Administration Levetiracetam 500 mg 04/20/19 16:00 04/22/19 17:41 Keppra PO 500 mg [id number] DAVID Administration Losartan Potassium 50 mg 04/20/19 10:00 04/23/19 11:44 Cozaar PO Not Given QDAY DAVID Morphine Sulfate 2 mg 04/18/19 17:06 Morphine IV Q4H PRN Pain, Moderate (4-6) Multivit/Ca Carb/B Cmplx/FA/Prenat 1 cap 04/19/19 10:00 04/23/19 09:39 Renal Caps PO 1 cap QDAY DAVID Administration Multivitamins/Iron 1 each 04/19/19 10:00 04/23/19 11:02 Hemocyte Plus PO 1 each QDAY DAVID Administration Ondansetron HCl 4 mg 04/18/19 17:06 04/21/19 18:06 Zofran IV 4 mg Q8H PRN Administration Nausea And Vomiting Pantoprazole Sodium 40 mg 04/20/19 10:00 04/23/19 09:39 Protonix PO 40 mg QDAY DAVID Administration Pravastatin Sodium 40 mg 04/18/19 22:00 04/23/19 22:06 Pravachol PO 40 mg QHS DAVID Administration Sodium Chloride 10 ml 04/18/19 22:00 04/23/19 22:11 Sodium Chloride Flush Syringe 10 Ml IV 10 ml BID DAVID Administration Sodium Chloride 10 ml 04/18/19 17:06 Sodium Chloride Flush Syringe 10 Ml IV PRN PRN LINE FLUSH Nutrition/Malnutrition Assess - Dietary Evaluation Nutrition/Malnutrition Findings: Nutrition Notes Start: 04/20/19 16:2 7 Freq: Status: Active Protocol: Document 04/20/19 16:27 RM (Rec: 04/20/19 16:29 RM [id number]) Nutrition Notes Need for Assessment generated from: assurance sourcing manager,MST Initial or Follow up Brief Note Current Diagnosis Acute Kidney Injury, Hypertension,Heart Failure, Hyperlipidemia Other Pertinent Diagnosis ESRD on HD (T/Th/S), Dementia, Encephalopathy Current Diet Renal Labs/Tests Reviewed Pertinent Medications Lasix Height 5 ft 8 in Weight 77 kg [place] Body Weight (kg) 70.00 BMI 25.8 Subjective/Other Information Screened for skin risk and malnutrition. Rayray 19 points. Pt w/sitter at time of visit. Per sitter pt ate all of breakfast. No temporal or orbital wasting . Burn Absent Trauma Absent Nutrition Intervention Revisit per MD consult or patient Sign Off request:
[2019-04-24] MEDS: PLAVIX PO SCH (10:00)
[2019-04-24] MEDS: HEMOCYTE PLUS PO SCH (10:00)
[2019-04-24] MEDS: PROTONIX PO SCH (10:00)
[2019-04-24] MEDS: COREG PO SCH (10:00)
[2019-04-24] MEDS: SODIUM CHLORIDE FLUSH SYRINGE 10 ML IV SCH (10:00)
[2019-04-24] MEDS: HEPARIN SUB-Q SCH (10:00)
[2019-04-24] MEDS: COZAAR PO SCH (10:00)
[2019-04-24] MEDS: Renal Caps PO SCH (10:00)
[2019-04-24] MEDS: HALFPRIN EC PO SCH (10:00)
[2019-04-24] MEDS: KEPPRA PO SCH ×2 (10:00→16:20)
--- NOTE | 2019-04-24 11:01 | Discharge Summary ---
Providers - Providers Date of Admission: 04/18/19 17:06 Attending physician: DELFINA KLEIN MD 04/18/19 14:43 Consult to Case Management [CONS] Routine Services Needed at Discharge: Market Survey Representative Notified:: YES Phone number called:: [phone] Was contact made?: Yes Time called:: 08:58 Comment:: Discharge Planning, placement 04/19/19 09:24 Consult to Mental Health [CONS] Routine Reason For Exam: pyschosis Place consult to:: mental health Notified:: YES Phone number called:: [phone] Was contact made?: Yes Time called:: 08:58 Comment:: MOHAN Consult to Physician [CONS] Routine Comment: Consulting Provider: POLA VASQUEZ Physician Instructions: Reason For Exam: ESRD 04/20/19 08:58 Physical Therapy Evaluation and Treat [CONS] Routine Comment: Reason For Exam: Weakness 04/20/19 10:25 Consult to Physician [CONS] Routine Comment: Consulting Provider: MONICA VASQUEZ Physician Instructions: Reason For Exam: Delirium [facility] Reason for admission: metabolic encephalopathy, delirium Condition: Stable Hospital course: 83 YO Male with ESRD on HD(T,R,Sa), CHF, HTN, HLD, Dementia with Behavioral Disturbance, CAD S/P CABG presents to ED for evaluation. Pt was confused, hallucinating and unable to give history. Pt history provided by who was at bedside during exam and interview. per the patient has experienced increased agitation, tangential thinking over the past 4 days with persistent symptoms over the past 1 day. Patient went to his scheduled dialysis session today and was unable to undergo dialysis. EMS notified, and upon arrival the patient was found to be in distress and transported to [facility]. Patient seen and evaluated in ED and found to have ESRD, Encephalopathy, as well as Dementia with Behavioral Disturbance. Patient admitted to [facility] unit. Nephrology consulted in ED. Patient has had recurrent admission for same condition, prior plan was for [facility]- psych but prohibited due to Dialysis needs. Neurology evaluate during last admission and recommended treating underlying UTI. 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 Keppra was changed to 500mg po BID with extra dose of 500MG After each dialysis. patient was admitted to the floor and psych consult appreciated. Metabolic encephalopathy resolved. SIRS treated with antibiotics. patient's mentation improved. Patient was alert, oriented and cooperative. Patient was discharged to SNF in a stable condition. Disposition: DC/TX-03 SNF W [facility] Time spent for discharge: 32 minutes - Discharge Diagnoses (1) Altered mental status Status: Acute Qualifiers: Altered mental status type: unspecified Qualified Code(s): R41.82 - Altered mental status, unspecified (2) ESRD (end stage renal disease) on dialysis Status: Acute (3) Encephalopathy Status: Acute (4) HLD (hyperlipidemia) Status: Acute Qualifiers: Hyperlipidemia type: mixed hyperlipidemia Qualified Code(s): E78.2 - Mixed hyperlipidemia (5) HTN (hypertension) Status: Acute Qualifiers: Hypertension type: essential hypertension Qualified Code(s): I10 - Essential (primary) hypertension Core Measure Documentation - Palliative Care Palliative Care/ Comfort Measures: Not Applicable - Core Measures Any of the following diagnoses?: none Exam - Physical Exam Narrative exam: Not in cardiopulmonary distress. The patient appeared well nourished and normally developed. Vital signs as documented. Head exam is unremarkable. No scleral icterus . Neck is without jugular venous distension, thyromegaly, or carotid bruits. Lungs are clear to auscultation. Cardiac exam reveals regular rate and Rhythm. Abdominal exam reveals normal bowel sounds. 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 - Constitutional Vitals: Temp Pulse Resp BP Pulse Ox 97.6 F 57 L 16 116/59 100 04/24/19 10:10 04/24/19 10:10 04/24/19 10:10 04/24/19 10:10 04/24/19 08:19 Plan Activity: no restrictions Weight Bearing Status: Full Weight Bearing Diet: renal Follow up with: KEATON COLBERT MD [Primary Care Provider] - 7 Days
[2019-04-24] MEDS ORDERED: NACL 0.9 (PRIMING MACHINE ONLY DIALYSIS) MC ONE (13:09)
--- NOTE | 2019-04-24 14:04 | Progress Note ---
Assessment and Plan Impression: * End stage renal disease * Altered mental status * Hypertension * Dementia * Hypokalemia * Anemia secondary to ESRD * Leukopenia Plan: * Continue HD MWF * UF as tolerated * Psychiatry note reviewed * Dose medications for renal function * Viki diet * Epogen TIW * Stable for d/c from a renal standpoint Subjective Date of service: 04/24/19 Interval history: Patient seen on dialysis. He has no complaint Objective - Vital Signs Vital signs: Vital Signs - 12hr 04/24/19 04/24/19 04/24/19 08:19 10:10 10:15 Temperature 97.6 F 97.6 F Pulse Rate 55 L 54 L 57 L Respiratory 20 16 Rate Blood Pressure 140/65 116/59 116/59 O2 Sat by Pulse 100 Oximetry 04/24/19 04/24/19 04/24/19 10:30 10:45 11:00 Temperature Pulse Rate 55 L 57 L 60 Respiratory Rate Blood Pressure 104/60 101/64 106/70 O2 Sat by Pulse Oximetry 04/24/19 04/24/19 04/24/19 11:15 11:30 11:45 Temperature Pulse Rate 54 L 51 L 56 L Respiratory Rate Blood Pressure 104/60 103/56 100/60 O2 Sat by Pulse Oximetry 04/24/19 04/24/19 04/24/19 12:00 12:15 12:30 Temperature Pulse Rate 56 L 61 56 L Respiratory Rate Blood Pressure 110/60 107/54 98/56 O2 Sat by Pulse Oximetry 04/24/19 04/24/19 12:45 13:00 Temperature Pulse Rate 55 L 57 L Respiratory Rate Blood Pressure 100/60 99/60 O2 Sat by Pulse Oximetry - General Appearance General appearance: well-developed, well-nourished EENT: ATNC Neck: no JVD Respiratory: Present: Clear to Ascultation Cardiology: regular, S1S2 Gastrointestinal: normal, no tenderness Integumentary: no rash, warm and dry Neurologic: no focal deficit, other (alert, responds appropriately to questions) - Lab 04/21/19 05:31 04/21/19 05:31 Most recent lab results Calcium 9.6 mg/dL (8.4-10.2) 04/21/19 05:31 Medications & Allergies - Medications Allergies/Adverse Reactions: Allergies No Known Allergies Allergy (Verified 02/25/19 14:44) Home Medications: Home Medications Medication Instructions Recorded Confirmed Last Taken Type Lovastatin 40 mg PO QHS 10/11/16 04/18/19 04/09/19 History Vit D3/Folic Acid/B2/B6/B12 1 each PO DAILY 10/11/16 04/18/19 04/09/19 History [Folgard Tablet] Furosemide [Lasix TAB] 40 mg PO QDAC 04/10/19 04/18/19 04/09/19 History Sodium Bicarbonate 650 mg PO TID 04/10/19 04/18/19 04/09/19 History hydrALAZINE [Apresoline TAB] 50 mg PO QAM&QHS 04/10/19 04/18/19 04/09/19 History Carvedilol [Coreg] 25 mg PO BID #60 tablet 04/15/19 04/18/19 Unknown Rx Folic Acid/Vit B Comp W-C [Renal 1 cap PO QDAY #30 capsule 04/15/19 04/18/19 Unknown Rx Caps] Melatonin [Melatonin 5MG TAB] 5 mg PO QHS #30 tablet 04/15/19 04/18/19 Unknown Rx Aspirin EC [Halfprin EC] 81 mg PO QDAY #30 tablet 04/17/19 04/18/19 Unknown Rx Clopidogrel [Plavix] 75 mg PO QDAY #30 tablet 04/17/19 04/18/19 Unknown Rx Famotidine [Pepcid] 20 mg PO BID #60 tablet 04/17/19 04/18/19 Unknown Rx Fe Fumarate/FA/Mv, Min Comb#15 1 each PO QDAY #30 capsule 04/17/19 04/18/19 Unknown Rx [Hemocyte Plus] levETIRAcetam [Keppra TAB] 500 mg PO 3XW #12 tablet 04/17/19 04/18/19 Unknown Rx levETIRAcetam [Keppra TAB] 500 mg PO BID #60 tablet 04/17/19 04/18/19 Unknown Rx Active Medications: Generic Name Dose Route Start Last Admin Trade Name Freq PRN Reason Stop Dose Admin Acetaminophen 650 mg 04/18/19 17:06 Tylenol PO Q4H PRN Pain MILD(1-3)/Fever >100.5/ZIMMERMAN Aspirin 81 mg 04/19/19 10:00 04/23/19 09:40 Halfprin Ec PO 81 mg QDAY DAVID Administration Carvedilol 12.5 mg 04/23/19 09:00 04/23/19 22:07 Coreg PO 12.5 mg BID DAVID Administration Clopidogrel Bisulfate 75 mg 04/19/19 10:00 04/23/19 09:40 Plavix PO 75 mg QDAY DAVID Administration Haloperidol Lactate 2 mg 04/19/19 20:45 04/21/19 17:13 Haldol IM 2 mg Q6H PRN Administration Agitation Heparin Sodium (Porcine) 5,000 unit 04/19/19 10:00 04/23/19 22:05 Heparin SUB-Q 5,000 unit Q12HR DAVID Administration Sodium Chloride 100 mls @ 999 mls/hr 04/19/19 22:11 Nacl 0.9% IV LAUREN PRN Hypotension Levetiracetam 500 mg 04/18/19 22:00 04/23/19 22:07 Keppra PO 500 mg BID DAVID Administration Levetiracetam 500 mg 04/20/19 16:00 04/22/19 17:41 Keppra PO 500 mg [id number] DAVID Administration Losartan Potassium 50 mg 04/20/19 10:00 04/23/19 11:44 Cozaar PO Not Given QDAY DAVID Morphine Sulfate 2 mg 04/18/19 17:06 Morphine IV Q4H PRN Pain, Moderate (4-6) Multivit/Ca Carb/B Cmplx/FA/Prenat 1 cap 04/19/19 10:00 04/23/19 09:39 Renal Caps PO 1 cap QDAY DAVID Administration Multivitamins/Iron 1 each 04/19/19 10:00 04/23/19 11:02 Hemocyte Plus PO 1 each QDAY DAVID Administration Ondansetron HCl 4 mg 04/18/19 17:06 04/21/19 18:06 Zofran IV 4 mg Q8H PRN Administration Nausea And Vomiting Pantoprazole Sodium 40 mg 04/20/19 10:00 04/23/19 09:39 Protonix PO 40 mg QDAY DAVID Administration Pravastatin Sodium 40 mg 04/18/19 22:00 04/23/19 22:06 Pravachol PO 40 mg QHS DAVID Administration Sodium Chloride 10 ml 04/18/19 22:00 04/23/19 22:11 Sodium Chloride Flush Syringe 10 Ml IV 10 ml BID DAVID Administration Sodium Chloride 10 ml 04/18/19 17:06 Sodium Chloride Flush Syringe 10 Ml IV PRN PRN LINE FLUSH
[2019-04-24 15:21] VITALS: BP 124/69
== END 2019-04-24 16:20 | DRG 70 ==
LOC: ED 13:16 → 2B-ACE 17:06
PROVIDERS: ADMIT Internal Medicine; ATTEND Internal Medicine
DX: G93.41 Metabolic encephalopathy (principal); N18.6 End stage renal disease; R65.10 Systemic inflammatory response syndrome (SIRS) of non-infectious origin without acute organ dysfunction; F05 Delirium due to known physiological condition; E78.2 Mixed hyperlipidemia; I10 Essential (primary) hypertension; E87.6 Hypokalemia; F03.90 Unspecified dementia, unspecified severity, without behavioral disturbance, psychotic disturbance, mood disturbance, and anxiety
CPT/HCPCS: 36415; 70450; 80048; 80053; 80320; 81001; 82140; 82310; 82330; 83970; 84443; 84520; 85007; 85025; 85027; 93005; 93010; 96372; G0378; A9270-GY; G0480; J1630; J1644; J2060; J2405; J3486; J7030